=== PATIENT | male | born 1950 | race Caucasian/White ===

== ENCOUNTER → 2016-09-09 | Outpatient (CLI) | payer BC ==
[2016-09-09 10:14] LABS: ALT 43 U/L (21-72); AST 21 U/L (17-59); Alkaline Phosphatase 94 U/L (38-126); Anion Gap 8 mmol/L; Blood Urea Nitrogen 14 mg/dL (9-20); Calcium 9.2 mg/dL (8.4-10.2); Carbon Dioxide 25 mmol/L (22-30); Chloride 109 mmol/L (98-107); Cholesterol 147 mg/dL (<200); Glucose 151 mg/dL (74-99); HDL Cholesterol 69 mg/dL (40-60); Non-African American GFR(MDRD) >60 (>60 ml/min/1.73 sqM); Potassium 4.3 mmol/L (3.5-5.1); Sodium 142 mmol/L (137-145); Total Bilirubin 0.8 mg/dL (0.2-1.3); Total Protein 6.9 g/dL (6.3-8.2); Triglycerides 56 mg/dL (<150)
[2016-09-09 11:50] LABS: Hemoglobin A1C 8.2 % (4.2-6.1)
== END | disposition home or self-care (01) ==
LOC: LABWHC1 09:21
PROVIDERS: ATTEND Internal Medicine Endocrinology, Diabetes & Metabolism
DX: E10.65 Type 1 diabetes mellitus with hyperglycemia (principal)
CPT/HCPCS: 36415; 80053; 80061; 83036; 84443

== ENCOUNTER → 2016-10-11 | Outpatient (CLI) | payer BC ==
[2016-10-11 09:37] LABS: Basophils # (A) 0.1 k/uL (0-0.2); Basophils % (A) 1 %; CH 26.7; CHCM 30.6; Eosinophils # (A) 0.4 k/uL (0-0.7); Eosinophils % (A) 6 %; HCT 41.2 % (39.0-53.0); HDW 2.31; HGB 12.7 gm/dL (13.0-17.5); Hypochromasia Slight; Luc # (Auto) 0.16; Luc % (Auto) 2; Lymphocytes # (A) 2.4 k/uL (1.0-4.8); Lymphocytes % (A) 31 %; MCHC 30.8 g/dL (31.0-37.0); MCV 87.7 fL (80.0-100.0); Mean Platelet Volume 6.7; Monocytes # (A) 0.6 k/uL (0-1.0); Monocytes % (A) 8 %; Neutrophils % (A) 52 %; RDW 14.3 % (11.5-15.5); WBC 7.7 k/uL (3.8-10.6); WBC (Perox) 7.47
[2016-10-11 10:56] LABS: ALT 45 U/L (21-72); AST 25 U/L (17-59); Alkaline Phosphatase 96 U/L (38-126); Anion Gap 7 mmol/L; Blood Urea Nitrogen 14 mg/dL (9-20); Calcium 9.1 mg/dL (8.4-10.2); Carbon Dioxide 29 mmol/L (22-30); Chloride 104 mmol/L (98-107); Glucose 115 mg/dL (74-99); Non-African American GFR(MDRD) >60 (>60 ml/min/1.73 sqM); Potassium 5.1 mmol/L (3.5-5.1); Sodium 140 mmol/L (137-145); Total Bilirubin 0.5 mg/dL (0.2-1.3); Total Protein 6.2 g/dL (6.3-8.2)
[2016-10-11 11:25] LABS: Prostate Specific Antigen 1.41 ng/mL (0.00-4.00)
== END | disposition home or self-care (01) ==
LOC: LABWHC1 07:57
PROVIDERS: ATTEND Family Medicine
DX: E10.9 Type 1 diabetes mellitus without complications (principal); E03.9 Hypothyroidism, unspecified; Z12.5 Encounter for screening for malignant neoplasm of prostate
CPT/HCPCS: 36415; 80053; 84153; 84443; 85025

== ENCOUNTER 2016-12-30 17:16 | Emergency (ER) | payer BC ==
[2016-12-30 17:30] VITALS: BP 179/75; PULSE 79; RESP 20; TEMP 98.3
[2016-12-30] MEDS ORDERED: PROPARACAINE 0.5% OPHTH DROPS 15 ML BTL LEFT EYE STA (17:38)
--- NOTE | 2016-12-30 18:03 | ED ---
General Adult HPI - General Chief complaint: Eye Problems Stated complaint: RT EYE PAIN Time Seen by Provider: 12/30/16 17:38 Source: patient, RN notes reviewed Mode of arrival: ambulatory Limitations: no limitations - History of Present Illness Initial comments: Patient 66-year-old male who presents emergency room today with chief complaint of increased irritation redness to the right eye that started one day ago. Patient does admit that he's had some increased watery discharge from this eye. States vision has been the same. States that he has noticed some irritation to the eye and some sensitivity. Denies any other complaints. Patient denies any recent fever, chills, shortness of breath, chest pain, back pain, abdominal pain, nausea or vomiting, numbness or tingling, dysuria or hematuria, constipation or diarrhea, headaches or visual changes, or any other complaints. - Related Data Home Medications Medication Instructions Recorded Confirmed Albuterol Sulfate [Proair Hfa] 2 puff INHALATION RT-Q6H PRN 12/16/13 03/02/15 Atorvastatin Calcium [Lipitor] 40 mg PO HS 12/16/13 03/02/15 Losartan [Cozaar] 50 mg PO DAILY 12/16/13 03/02/15 Montelukast Sodium [Singulair] 10 mg PO HS 12/16/13 03/02/15 Insulin Aspart [NovoLOG] 0 - 90 units SQ CONTINUOUS 12/17/13 03/02/15 Fluticasone/Vilanterol [Breo 1 inhalation PO RT-DAILY 09/26/14 03/02/15 Ellipta 100-25 Mcg Inhaler] Levothyroxine Sodium [Synthroid] 137 mcg PO DAILY 09/26/14 03/02/15 traMADol HCL [traMADol HCL ER] 100 mg PO Q6H PRN 09/26/14 03/02/15 traZODone HCL [Desyrel] 100 mg PO HS PRN 09/26/14 03/02/15 Previous Rx's Medication Instructions Recorded Levalbuterol HCl [Xopenex 1.25 mg INHALATION RT-QID PRN #60 10/02/14 Nebulized] ml guaiFENesin [Mucinex] 1,200 mg PO Q12HR #30 tablet.er 10/02/14 Theophylline 12 Hour [Dennis-Dur] 300 mg PO BID #60 tab 02/05/15 Azithromycin [Zithromax] 500 mg PO DAILY #5 tab 03/04/15 predniSONE 10 mg PO DIRECTED #30 tab 03/04/15 Tobramycin 0.3% Ophth Soln [Tobrex 1 - 2 drop BOTH EYES QID 7 Days 12/30/16 0.3% Ophth Soln] Allergies Allergy/AdvReac Type Severity Reaction Status Date / Time aspirin Allergy Unknown Unknown Verified 12/30/16 17:30 Review of Systems ROS Statement: Those systems with pertinent positive or pertinent negative responses have been documented in the HPI. ROS Other: All systems not noted in ROS Statement are negative. Past Medical History Past Medical History: Asthma, Diabetes Mellitus, Hyperlipidemia, Hypertension, Skin Disorder, Thyroid Disorder Additional Past Medical History / Comment(s): 02/02/15 Pt presented to [facility] ER with ESTUARDO which started last nite while working. He went home at 0600 this AM and ESTUARDO got significantly worse. Pt is admitted with clinicla impression of asthma exacerbation. Other HX: Moderate persistant asthma, IDDM type I- insulin pump and subcutaneous diabetic sensor, hypothyroidism, vitiligo for 17 years, seasonal allergic rhinitis, pt last admitted to [facility] 10/02/14 with acute respiratory failure 2ndary to acute asthma exacerbation. History of Any Multi-Drug Resistant Organisms: None Reported Past Surgical History: Orthopedic Surgery Additional Past Surgical History / Comment(s): reconstruction of pelvis (Feb 2011), bilateral hands tendon release in fingers (2002), Arthoscopic in right knee (1996), steel rodrigo in great toe of right foot (1997), bilateral arthroscopic elbow surgery, left elbow radial nerve release. Past Anesthesia/Blood Transfusion Reactions: Postoperative Nausea & Vomiting ( PONV) Additional Past Anesthesia/Blood Transfusion Reaction / Comment(s): Only after the tendon release in fingers Past Psychological History: No Psychological Hx Reported Smoking Status: Never smoker Past Alcohol Use History: None Reported Past Drug Use History: None Reported - Past Family History Father Family Medical History: Myocardial Infarction ([place]) Additional Family Medical History / Comment(s): had in 1972 Mother Family Medical History: Asthma, Cancer, Thyroid Disorder Additional Family Medical History / Comment(s): lung cancer (diagnosed when she was 79) Brother(s) Family Medical History: CVA/TIA, Neurologic Disorder Additional Family Medical History / Comment(s): parkinson's disease, subdural hematoma. Brother is . Sister(s) Family Medical History: No Reported History Daughter(s) Family Medical History: No Reported History Son(s) Family Medical History: No Reported History General Exam - General Exam Comments Initial Comments: General: The patient is awake and alert, in no distress, and does not appear acutely ill. Eye: Pupils are equal, round and reactive to light, extra-ocular movements are intact. No nystagmus. Redness irritation to the right conjunctiva left conjunctiva clear. Ears, nose, mouth and throat: There are moist mucous membranes and no oral lesions. Neck: The neck is supple, there is no tenderness or JVD. Cardiovascular: There is a regular rate and rhythm. No murmur, rub or gallop is appreciated. Respiratory: Lungs are clear to auscultation, respirations are non-labored, breath sounds are equal. No wheezes, stridor, rales, or rhonchi. Musculoskeletal: Normal ROM, no tenderness. Strength 5/5. Sensation intact. Pulses equal bilaterally 2+. Neurological: A&O x 3. CN II-XII intact, There are no obvious motor or sensory deficits. Coordination appears grossly intact. Speech is normal. Skin: Skin is warm and dry and no rashes or lesions are noted. Psychiatric: Cooperative, appropriate mood & affect, normal judgment. Limitations: no limitations Course Vital Signs 12/30/16 17:28 Temperature 98.3 F Pulse Rate 79 Respiratory 20 Rate Blood Pressure 179/75 O2 Sat by Pulse 96 Oximetry Procedures - Procedures Initial comment: Patient is right eye was anesthetized locally with proparacaine. This did relieve his symptoms. Patient's right eye was checked with fluorescein with Wood's lamp revealing no foreign body. Slit lamp exam also performed revealing no abnormality. Patient's pressure in the right eye was checked and was 9 mmhg. Disposition Clinical Impression: Acute conjunctivitis Disposition: HOME SELF-CARE Condition: Good Instructions: Conjunctivitis (ED) Additional Instructions: Please use medication as discussed. Please follow-up with mortgage loan originator / family doctor in the next 2 days of symptoms have not improved. Please return to emergency room if the symptoms increase or worsen or for any other concerns. Prescriptions: Tobramycin 0.3% Ophth Soln [Tobrex 0.3% Ophth Soln] 1 - 2 drop BOTH EYES QID 7 Days Referrals: Skyler Marcano MD [Primary Care Provider] - 1-2 days Navdeep Melendez MD [STAFF PHYSICIAN] - 1-2 days Time of Disposition: 18:02
== END 2016-12-30 18:07 | disposition home or self-care (01) ==
LOC: EC 17:16
DX: H10.31 Unspecified acute conjunctivitis, right eye (principal); E78.5 Hyperlipidemia, unspecified; I10 Essential (primary) hypertension; E10.9 Type 1 diabetes mellitus without complications; J45.41 Moderate persistent asthma with (acute) exacerbation; E03.9 Hypothyroidism, unspecified; Z79.4 Long term (current) use of insulin; Z79.51 Long term (current) use of inhaled steroids; Z79.899 Other long term (current) drug therapy; Z88.6 Allergy status to analgesic agent
CPT/HCPCS: 99283

== ENCOUNTER → 2017-06-06 | Outpatient (CLI) | payer BC ==
[2017-06-06 09:06] LABS: ALT 36 U/L (21-72); AST 19 U/L (17-59); Albumin 3.6 g/dL (3.5-5.0); Alkaline Phosphatase 73 U/L (38-126); Anion Gap 7 mmol/L; Blood Urea Nitrogen 22 mg/dL (9-20); Calcium 9.2 mg/dL (8.4-10.2); Carbon Dioxide 26 mmol/L (22-30); Chloride 107 mmol/L (98-107); Cholesterol 151 mg/dL (<200); Glucose 176 mg/dL (74-99); HDL Cholesterol 68 mg/dL (40-60); LDL Cholesterol,Calculated 73 mg/dL (0-99); Sodium 140 mmol/L (137-145); Total Bilirubin 0.5 mg/dL (0.2-1.3); Total Protein 6.2 g/dL (6.3-8.2); Triglycerides 49 mg/dL (<150)
[2017-06-06 09:07] LABS: Potassium 4.9 mmol/L (3.5-5.1)
== END | disposition home or self-care (01) ==
LOC: LABWHC1 08:08
PROVIDERS: ATTEND Internal Medicine Endocrinology, Diabetes & Metabolism
DX: E10.65 Type 1 diabetes mellitus with hyperglycemia (principal); E03.8 Other specified hypothyroidism
CPT/HCPCS: 36415; 80053; 80061; 82043; 82570; 84443

== ENCOUNTER 2017-09-27 17:00 | Emergency (ER) | payer BC ==
[2017-09-27 17:09] VITALS: BP 142/79; PULSE 81; RESP 20; TEMP 98.4
[2017-09-27] MEDS ORDERED: ACETAMINOPHEN TAB 325 MG TAB PO STA (17:21)
[2017-09-27] MEDS ORDERED: CYCLOBENZAPRINE 5 MG TAB PO STA (17:21)
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
--- NOTE | 2017-09-27 18:06 | XR ---
EXAMINATION TYPE: XR knee 4V RT DATE OF EXAM: 09/27/2017 CLINICAL HISTORY: pain TECHNIQUE: Three views of the right knee are obtained. Pryor views also submitted. COMPARISON: None. FINDINGS: There is no acute fracture/dislocation. The tri-compartment joint spaces appear moderatel y narrowed. The overlying soft tissue appears unremarkable. IMPRESSION: There is no acute fracture or dislocation.ICD 10 NO FRACTURE, INITIAL EVALUATION
--- NOTE | 2017-09-27 18:07 | XR ---
EXAMINATION TYPE: XR Hip RT and AP Pelvis DATE OF EXAM: 09/27/2017 COMPARISON: NONE HISTORY: Pain TECHNIQUE: A single AP view of the pelvis is obtained. Two views of the right hip are obtained. FINDINGS: There is no acute fracture/dislocation evident in the pelvis. The hip and sacroiliac join ts appear symmetric and unremarkable. The overlying soft tissue appears unremarkable. Right hip evaluation demonstrates changes of total right hip arthroplasty with femoral and acetabular components appearing well seated. Additional metallic fixation of the acetabulum. No acute fracture seen. No evidence for loosening at this time. IMPRESSION: There is no acute fracture or dislocation in the pelvis or right hip.
== END 2017-09-27 18:35 | disposition home or self-care (01) ==
LOC: EC 17:00
DX: M25.561 Pain in right knee (principal); M25.551 Pain in right hip; J45.909 Unspecified asthma, uncomplicated; E78.5 Hyperlipidemia, unspecified; I10 Essential (primary) hypertension; E03.9 Hypothyroidism, unspecified; E10.9 Type 1 diabetes mellitus without complications; Z87.828 Personal history of other (healed) physical injury and trauma; Z96.641 Presence of right artificial hip joint; Z98.890 Other specified postprocedural states; Z79.4 Long term (current) use of insulin; Z79.51 Long term (current) use of inhaled steroids; Z79.899 Other long term (current) drug therapy; Z88.6 Allergy status to analgesic agent; V43.52XA Car driver injured in collision with other type car in traffic accident, initial encounter; Y92.89 Other specified places as the place of occurrence of the external cause
CPT/HCPCS: 73502; 99284

== ENCOUNTER → 2017-11-01 | Outpatient (CLI) | payer BC | END | disposition home or self-care (01) | LOC: LABWHC1 14:47 | PROVIDERS: ATTEND Internal Medicine Endocrinology, Diabetes & Metabolism | DX: E03.8 Other specified hypothyroidism (principal) | CPT/HCPCS: 36415; 84443 ==

== ENCOUNTER → 2018-03-21 | Outpatient (CLI) | payer BC ==
[2018-03-22 03:56] LABS: ALT 32 U/L (10-49); AST 28 U/L (14-35); Albumin/Globulin Ratio 2.26 (1.20-2.10); Alkaline Phosphatase 86 U/L (41-126); Carbon Dioxide 28.1 mmol/L (21.6-31.8); Chloride 106 mmol/L (96-109); Cholesterol 130 mg/dL (0-200); Globulin 1.9 g/dL (2.1-3.7); Glucose 142 mg/dL (70-110); Potassium 4.4 mmol/L (3.5-5.5); Sodium 141 mmol/L (135-145); Total Bilirubin 0.4 mg/dL (0.2-1.2); Total Protein 6.2 g/dL (6.2-8.2); Triglycerides <50.0 mg/dL (0.0-149.0); VLDL Calculation 9.98 mg/dL (5.00-40.00)
[2018-03-22 08:51] LABS: Hemoglobin A1C 8.4 % (4.0-6.0)
== END ==
LOC: LABWHC1 14:29
PROVIDERS: ATTEND Internal Medicine Endocrinology, Diabetes & Metabolism
DX: E10.65 Type 1 diabetes mellitus with hyperglycemia (principal)
CPT/HCPCS: 36415; 80053; 80061; 82043; 82570; 83036; 84443

== ENCOUNTER → 2018-09-17 | Outpatient (CLI) | payer BC ==
[2018-09-17 17:31] LABS: Albumin 3.9 g/dL (3.80-4.90); Albumin/Globulin Ratio 2.17 (1.60-3.17); Anion Gap 8.5 mmol/L (4.00-12.00); Calcium 8.5 mg/dL (8.7-10.3); Carbon Dioxide 23.5 mmol/L (21.6-31.8); Globulin 1.8 g/dL (1.6-3.3); LDL Cholesterol,Calculated 79.6 mg/dL (0.0-131.0); Potassium 4.5 mmol/L (3.5-5.5); Total Bilirubin 0.4 mg/dL (0.2-1.2); Total Protein 5.7 g/dL (6.2-8.2); VLDL Calculation 18.4 mg/dL (5.00-40.00)
[2018-09-17 18:40] LABS: Hemoglobin A1C 8.1 % (4.0-6.0)
== END | disposition home or self-care (01) ==
LOC: LABWHC1 09:44
PROVIDERS: ATTEND Internal Medicine Endocrinology, Diabetes & Metabolism
DX: E10.65 Type 1 diabetes mellitus with hyperglycemia (principal)
CPT/HCPCS: 36415; 80053; 80061; 82043; 82570; 83036; 84443

== ENCOUNTER → 2019-05-21 | Outpatient (CLI) | payer BC | END | disposition home or self-care (01) | LOC: CPPFTMAIN 14:05 | PROVIDERS: ATTEND Internal Medicine Critical Care Medicine | DX: J44.9 Chronic obstructive pulmonary disease, unspecified (principal); R94.2 Abnormal results of pulmonary function studies | CPT/HCPCS: 94060; 94726; 94729 ==

== ENCOUNTER → 2019-07-09 | Outpatient (CLI) | payer BC ==
[2019-07-09 11:50] LABS: Urine Creatinine 135.3 mg/dL
[2019-07-09 14:01] LABS: Hemoglobin A1C 7.6 % (4.0-6.0)
[2019-07-09 17:25] LABS: African American GFR (CKD) 80.6 (60.0-200.0); Albumin 4.1 g/dL (3.80-4.90); Albumin/Globulin Ratio 2.56 (1.60-3.17); Anion Gap 9.5 mmol/L (4.00-12.00); BUN/Creat Ratio 11.82 Ratio (12.00-20.00); Carbon Dioxide 26.5 mmol/L (21.6-31.8); Chol/HDL Ratio 2.26; Globulin 1.6 g/dL (1.6-3.3); Non-African American GFR(CKD) 69.6 (60.0-200.0); Potassium 4.4 mmol/L (3.5-5.5); Total Bilirubin 0.5 mg/dL (0.3-1.2); Total Protein 5.7 g/dL (6.2-8.2)
== END | disposition home or self-care (01) ==
LOC: LABWHC1 07:19
PROVIDERS: ATTEND Internal Medicine Endocrinology, Diabetes & Metabolism
DX: E10.65 Type 1 diabetes mellitus with hyperglycemia (principal)
CPT/HCPCS: 36415; 80053; 80061; 82043; 82570; 83036

== ENCOUNTER → 2020-02-05 | Outpatient (CLI) | payer BC ==
[2020-02-05 12:05] LABS: ALT 36 U/L (10-49); AST 21 U/L (14-35); African American GFR (CKD) 80.1 (60.0-200.0); Albumin/Globulin Ratio 2.11 (1.60-3.17); Alkaline Phosphatase 65 U/L (41-126); BUN/Creat Ratio 14.55 Ratio (12.00-20.00); Calcium 8.4 mg/dL (8.7-10.3); Carbon Dioxide 26.4 mmol/L (21.6-31.8); Chloride 102 mmol/L (96-109); Chol/HDL Ratio 1.91; Cholesterol 164 mg/dL (0-200); Globulin 1.8 g/dL (1.6-3.3); Glucose 198 mg/dL (70-110); Non-African American GFR(CKD) 69.1 (60.0-200.0); Potassium 4.7 mmol/L (3.5-5.5); Sodium 139 mmol/L (135-145); Total Bilirubin 0.5 mg/dL (0.3-1.2); Total Protein 5.6 g/dL (6.2-8.2); Triglycerides <50.0 mg/dL (0.0-149.0)
[2020-02-05 12:38] LABS: Microalbumin Creatinine Ratio <30 mg/g Creat (0-30); Urine Creatinine 44.5 mg/dL
[2020-02-05 16:11] LABS: Hemoglobin A1C 8.1 % (4.0-6.0)
== END | disposition home or self-care (01) ==
LOC: LABWHC1 07:04
PROVIDERS: ATTEND Internal Medicine Endocrinology, Diabetes & Metabolism
DX: E10.65 Type 1 diabetes mellitus with hyperglycemia (principal)
CPT/HCPCS: 36415; 80053; 80061; 82043; 82570; 83036; 84443

== ENCOUNTER 2020-06-24 17:41 | Observation (INO) | payer BC, MEDICARE ==
[2020-06-24] MEDS ORDERED: HYDROmorphone 1 MG/ML 1 ML SYRINGE IVP STA ×2 (17:45→18:49)
--- NOTE | 2020-06-24 17:48 | ED ---
General Adult HPI - General Stated complaint: Fall Time Seen by Provider: 06/24/20 17:42 Source: patient, EMS, RN notes reviewed Mode of arrival: EMS Limitations: no limitations - History of Present Illness Initial comments: Patient is a pleasant 69-year-old male presenting to the emergency department following a fall. Incident occurred just prior to arrival. Patient was ringing in his recycle can when he stepped on ice and slipped. Patient Complains of severe discomfort to left ankle. No other area of injury. No head injury or loss of consciousness. No neck or back pain. No chest pain or dyspnea. No abdominal pain. No history of significant injury here previously. - Related Data Home Medications Medication Instructions Recorded Confirmed Albuterol Sulfate [Proair Hfa] 2 puff INHALATION RT-Q6H PRN 12/16/13 02/06/17 Atorvastatin Calcium [Lipitor] 40 mg PO HS 12/16/13 02/06/17 Montelukast Sodium [Singulair] 10 mg PO HS 12/16/13 02/06/17 Fluticasone/Vilanterol [Breo 1 puff INHALATION RT-DAILY 09/26/14 02/06/17 Ellipta 100-25 Mcg Inhaler] traMADol HCL [Ultram ER] 100 mg PO DAILY PRN 09/26/14 02/06/17 traZODone HCL [Desyrel] 100 mg PO HS 09/26/14 02/06/17 Ascorbic Acid [Vitamin C] 500 mg PO DAILY 02/06/17 02/06/17 Insulin Aspart (For Pump) [NovoLOG 0.01 unit SQ-PUMP CONTINUOUS 02/06/17 02/06/17 (For Pump)] Levothyroxine Sodium [Synthroid] 150 mcg PO DAILY 02/06/17 02/06/17 Losartan [Cozaar] 25 mg PO DAILY 02/06/17 02/06/17 Ranitidine HCl 150 mg PO BID PRN 02/06/17 02/06/17 guaiFENesin [Mucinex] 600 mg PO Q12HR PRN 02/06/17 02/06/17 Previous Rx's Medication Instructions Recorded Levalbuterol HCl [Xopenex 1.25 mg INHALATION RT-QID PRN #60 10/02/14 Nebulized] ml Ipratropium Nebulized [Atrovent 0.5 mg INHALATION Q6HR #50 neb 02/06/17 Nebulized] Cyclobenzaprine [Flexeril] 5 mg PO TID #12 tablet 09/27/17 Allergies Allergy/AdvReac Type Severity Reaction Status Date / Time aspirin Allergy Unknown Rash/Hives Verified 06/24/20 17:47 Review of Systems ROS Statement: Those systems with pertinent positive or pertinent negative responses have been documented in the HPI. ROS Other: All systems not noted in ROS Statement are negative. Constitutional: Denies: fever Eyes: Denies: eye pain ENT: Denies: ear pain Respiratory: Denies: cough Cardiovascular: Denies: chest pain Endocrine: Denies: fatigue Gastrointestinal: Denies: abdominal pain Genitourinary: Denies: dysuria Musculoskeletal: Reports: as per HPI. Denies: back pain Skin: Denies: rash Neurological: Denies: headache Past Medical History Past Medical History: Asthma, Diabetes Mellitus, Hyperlipidemia, Hypertension, Skin Disorder, Thyroid Disorder Additional Past Medical History / Comment(s): Other HX: Moderate persistant asthma, IDDM type I- insulin pump and subcutaneous diabetic sensor, hypothyroidism, vitiligo for 17 years, seasonal allergic rhinitis, right foot drop secondary to pelvic fracture History of Any Multi-Drug Resistant Organisms: None Reported Past Surgical History: Orthopedic Surgery Additional Past Surgical History / Comment(s): reconstruction of pelvis (Feb 2011), bilateral hands tendon release in fingers (2002), Arthoscopic in right knee (1996), steel rodrigo in great toe of right foot (1997), bilateral arthroscopic elbow surgery, left elbow radial nerve release. Past Anesthesia/Blood Transfusion Reactions: Postoperative Nausea & Vomiting (PONV) Additional Past Anesthesia/Blood Transfusion Reaction / Comment(s): Only after the tendon release in fingers Past Psychological History: No Psychological Hx Reported Past Alcohol Use History: None Reported Past Drug Use History: None Reported - Past Family History Father Family Medical History: Myocardial Infarction ([place]) Additional Family Medical History / Comment(s): had in 1972 Mother Family Medical History: Asthma, Cancer, Thyroid Disorder Additional Family Medical History / Comment(s): lung cancer (diagnosed when she was 79) Brother(s) Family Medical History: CVA/TIA, Neurologic Disorder Additional Family Medical History / Comment(s): parkinson's disease, subdural hematoma. Brother is . Sister(s) Family Medical History: No Reported History Daughter(s) Family Medical History: No Reported History Son(s) Family Medical History: No Reported History General Exam Limitations: no limitations General appearance: alert, in no apparent distress Head exam: Present: atraumatic, normocephalic Eye exam: Present: normal appearance Neck exam: Present: normal inspection. Absent: tenderness Respiratory exam: Present: normal lung sounds bilaterally Cardiovascular Exam: Present: regular rate, normal rhythm Expanded Peripheral pulses: 2+: Posterior Tibialis (L), Dorsalis Pedis (L) GI/Abdominal exam: Present: soft. Absent: tenderness Extremities exam: Present: tenderness (Left ankle with tenderness and Swelling. No foot or other leg tenderness. Distally the extremity is neurovascular in tact. Cap refill less than 2 seconds.), normal capillary refill Neurological exam: Present: alert. Absent: motor sensory deficit Psychiatric exam: Present: normal affect, normal mood Skin exam: Present: normal color Course Vital Signs 06/24/20 06/24/20 06/24/20 17:42 18:25 18:31 Temperature 98.3 F Pulse Rate 85 105 H 105 H Respiratory 18 18 18 Rate Blood Pressure 184/100 192/90 168/116 O2 Sat by Pulse 98 100 100 Oximetry 06/24/20 06/24/20 06/24/20 18:36 18:37 18:53 Temperature Pulse Rate 104 H 99 104 H Respiratory 16 20 18 Rate Blood Pressure 182/101 152/89 174/97 O2 Sat by Pulse 100 100 98 Oximetry Procedures - Orthopedic Fracture Reduction Fracture #1 Consent Obtained: verbal consent, written consent Side: left Fracture Reduction Location: tibia, fibula Analgesia: procedural sedation Technique: direct manipulation Post Reduction X-rays Demonstrate: acceptable reduction Post-Reduction Neuro Exam: intact Post-Reduction Vascular Exam: intact Splint Applied: Yes Patient Tolerated Procedure: well, no complications - Orthopedic Splinting/Casting Injury #1 Side: left Lower Extremity Injury Location: short leg, ankle Lower Extremity Immobilizer: stirrup splint - Procedural Sedation Procedural Sedation Start Time: 18:25 Procedural Sedation Stop Time: 18:51 Indications: fracture/dislocation reduction ASA Class: II Mallampati Airway Score: 2 Preparation: environmental monitoring specialist applied, pulse oximeter, capnometry used, supplemental O2 applied IV Propofol Dose (mgs): 100 Complications: none Patient Tolerated Procedure: well, no complications Medical Decision Making - Medical Decision Making Patient family updated. Case discussed with practitioner branch, covering with Dr. Eaton, who will admit. - Radiology Data Radiology results: image reviewed (Left ankle x-ray shows displaced bimalleolar fracture. Repeat x-ray shows adequate alignment.) Disposition Clinical Impression: Closed fracture dislocation of left ankle Disposition: ADMITTED IP TO THIS [facility] Condition: Serious Is patient prescribed a controlled substance at d/c from ED?: No Referrals: Skyler Marcano MD [Primary Care Provider] - 1-2 days Decision Time: 19:14
[2020-06-24] MEDS ORDERED: PROPOFOL 10 MG/ML 20 ML VIAL IV ONE (18:13)
--- NOTE | 2020-06-24 18:19 | XR ---
RESULT: HISTORY: fall with pain. TECHNIQUE: 3 views of the left ankle were obtained. COMPARISON: None. FINDINGS: There are moderately displaced fractures of the distal fibula diaphysis above the ankle mortise and o f the medial malleolus at level of ankle mortise. There is lateral subluxation of the tibiotalar join t with disruption of the ankle mortise. IMPRESSION: Left ankle bimalleolar fracture with lateral subluxation.
--- NOTE | 2020-06-24 18:55 | XR ---
RESULT: HISTORY: reduction TECHNIQUE: 2 views of the left ankle were obtained. COMPARISON: None. FINDINGS: There is interval reduction and splinting of the bimalleolar fracture with improved anatomic alignmen t. IMPRESSION: As above.
[2020-06-24] MEDS ORDERED: NALOXONE 0.4 MG/ML 1 ML VIAL IV PRN (19:14)
[2020-06-24] MEDS ORDERED: ONDANSETRON 4 MG/2 ML VIAL IVP PRN (19:14)
[2020-06-24] MEDS: HYDROmorphone 0.5 MG/0.5 ML SYRINGE IVP PRN (20:02)
[2020-06-24 20:03] LABS: Basophils # (A) 0.1 k/uL (0-0.2); Basophils % (A) 1 %; Eosinophils # (A) 0.5 k/uL (0-0.7); Eosinophils % (A) 4 %; HCT 40.1 % (39.0-53.0); HGB 13.3 gm/dL (13.0-17.5); Lymphocytes # (A) 1.5 k/uL (1.0-4.8); Lymphocytes % (A) 12 %; MCH 28.9 pg (25.0-35.0); MCHC 33.3 g/dL (31.0-37.0); MCV 86.9 fL (80.0-100.0); Monocytes # (A) 0.6 k/uL (0-1.0); Monocytes % (A) 5 %; Neutrophils # (A) 9.3 k/uL (1.3-7.7); Neutrophils % (A) 78 %; Platelet Count 243 k/uL (150-450); RBC 4.62 m/uL (4.30-5.90); RDW 13.1 % (11.5-15.5)
[2020-06-24 20:12] LABS: INR 0.9 (<1.2); Partial Thromboplastin Time 23.1 sec (22.0-30.0); Prothrombin Time 9.6 sec (9.0-12.0)
[2020-06-24 20:14] LABS: ALT 27 U/L (4-49); AST 29 U/L (17-59); African American GFR (CKD) >90 (>60 ml/min/1.73 sqM); Albumin 3.6 g/dL (3.5-5.0); Alkaline Phosphatase 65 U/L (38-126); Anion Gap 4 mmol/L; Blood Urea Nitrogen 14 mg/dL (9-20); Carbon Dioxide 27 mmol/L (22-30); Chloride 103 mmol/L (98-107); Glucose 167 mg/dL (74-99); Non-African American GFR(CKD) 90 (>60 ml/min/1.73 sqM); Potassium 5.1 mmol/L (3.5-5.1); Sodium 134 mmol/L (137-145); Total Bilirubin 0.4 mg/dL (0.2-1.3); Total Protein 6.1 g/dL (6.3-8.2)
[2020-06-24] MEDS: HYDROmorphone 1 MG/ML 1 ML SYRINGE IVP PRN (21:53)
[2020-06-25] MEDS: HYDROmorphone 0.5 MG/0.5 ML SYRINGE IVP PRN (00:43)
[2020-06-25] MEDS: SODIUM CHLORIDE 0.9% 1,000 ML IV SCH ×4 (00:47→22:07)
[2020-06-25] MEDS: HYDROmorphone 1 MG/ML 1 ML SYRINGE IVP PRN ×2 (04:23→08:46)
[2020-06-25] MEDS: PANTOPRAZOLE 40 MG/10 ML VIAL IV SCH (07:26)
[2020-06-25] MEDS ORDERED: ALBUTEROL NEBULIZED 2.5 MG/3 ML INHALATION PRN (08:49)
[2020-06-25] MEDS ORDERED: LEVALBUTEROL HCL 1.25 MG/3 ML INHALATION PRN (08:49)
[2020-06-25] MEDS ORDERED: traZODone HCL 100 MG TAB PO PRN (08:49)
[2020-06-25] MEDS ORDERED: HYDROcodone/APAP 7.5-325MG 1 EACH TAB PO PRN (08:49)
[2020-06-25] MEDS ORDERED: CYCLOBENZAPRINE 5 MG TAB PO PRN (08:49)
[2020-06-25] MEDS ORDERED: BUDESONIDE 1 MG/2 ML NEBU INHALATION SCH (08:55)
[2020-06-25] MEDS ORDERED: IPRATROPIUM-ALBUTEROL 3 ML NEB INHALATION PRN (08:55)
[2020-06-25] MEDS ORDERED: Insulin Aspart (For Pump) 100 UNIT/ML VIAL SQ-PUMP SCH (09:00)
--- NOTE | 2020-06-25 09:07 | P.HPOR ---
History of Present Illness H&P Date: 06/25/20 Chief Complaint: Left ankle bimalleolar fracture Patient is a 69-year-old male who presented to [facility] yesterday evening after sustaining a slip and fall injury while at home. She apparently was going out to his recycle bin when he slipped on ice and injured his left ankle. He noticed immediate deformity and pain. He was unable to weight-bear at that time. He was able to crawl back to some contact EMS. Upon arrival to the hospital, imaging and lab tests were done. Images demonstrated a ankle dislocation with a displaced medial and lateral malleolus fracture. The ER staff reduce the ankle and splinted, I was contacted by the emergency room physician. I was able to review the images, both pre-and postreduction films with my attending physician Dr. Cuba. Patient was admitted to [facility] under our care, internal medicine was placed on consult for medical management and clearance. Patient was made nothing by mouth after midnight with plan for surgery for 06/25/2020. Patient was evaluated today at bedside, he is resting comfortably. He notes most of discomfort in the left ankle with movement. He denies any discomfort involving the right lower extremity, bilateral upper extremities. He denies any new onset cervical, thoracic or lumbar pain. He denies hitting his head during the occasion. He denies any paresthesias in the bilateral lower extremities. He denies any bowel or bladder changes. Patient does have history of an acetabular fracture back in 2010, he underwent surgery [facility]. As a result from the injury and surgery, he does have a footdrop on the right lower extremity which she utilizes a brace. He denies any previous orthopedic surgery to the left lower extremity. Currently patient denies any headaches, lightheadedness, chest pain, shortness of breath, abdominal pain, nausea vomiting, fever or chills. Review of Systems Constitutional: Reports as per HPI Past Medical History Past Medical History: Asthma, Diabetes Mellitus, Hyperlipidemia, Hypertension, Skin Disorder, Thyroid Disorder Additional Past Medical History / Comment(s): Other HX: Moderate persistant asthma, IDDM type I- insulin pump and subcutaneous diabetic sensor, hypothyroidism, vitiligo for 17 years, seasonal allergic rhinitis, right foot drop secondary to pelvic fracture History of Any Multi-Drug Resistant Organisms: None Reported Past Surgical History: Orthopedic Surgery Additional Past Surgical History / Comment(s): reconstruction of pelvis (Feb 2011), bilateral hands tendon release in fingers (2002), Arthoscopic in right knee (1996), steel rodrigo in great toe of right foot (1997), bilateral arthroscopic elbow surgery, left elbow radial nerve release. Past Anesthesia/Blood Transfusion Reactions: Postoperative Nausea & Vomiting (PONV) Additional Past Anesthesia/Blood Transfusion Reaction / Comment(s): Only after the tendon release in fingers Past Psychological History: No Psychological Hx Reported Additional Psychological History / Comment(s): Pt resides with his spouse. He is independent. He uses no assistive device. He drives. Smoking Status: Never smoker Past Alcohol Use History: None Reported Past Drug Use History: None Reported - Past Family History Father Family Medical History: Myocardial Infarction ([place]) Additional Family Medical History / Comment(s): had in 1972 Mother Family Medical History: Asthma, Cancer, Thyroid Disorder Additional Family Medical History / Comment(s): lung cancer (diagnosed when she was 79) Brother(s) Family Medical History: CVA/TIA, Neurologic Disorder Additional Family Medical History / Comment(s): parkinson's disease, subdural hematoma. Brother is . Sister(s) Family Medical History: No Reported History Daughter(s) Family Medical History: No Reported History Son(s) Family Medical History: No Reported History Medications and Allergies Home Medications Medication Instructions Recorded Confirmed Type Albuterol Sulfate [Proair Hfa] 2 puff INHALATION RT-Q6H PRN 12/16/13 06/24/20 History Atorvastatin Calcium [Lipitor] 40 mg PO HS 12/16/13 06/24/20 History Montelukast Sodium [Singulair] 10 mg PO HS 12/16/13 06/24/20 History Fluticasone/Vilanterol [Breo 1 puff INHALATION RT-DAILY 09/26/14 06/24/20 History Ellipta 100-25 Mcg Inhaler] traZODone HCL [Desyrel] 100 mg PO HS PRN 09/26/14 06/24/20 History Levalbuterol HCl [Xopenex 1.25 mg INHALATION RT-QID PRN #60 10/02/14 06/24/20 Rx Nebulized] ml Insulin Aspart (For Pump) [NovoLOG 0.01 unit SQ-PUMP CONTINUOUS 02/06/17 06/24/20 History (For Pump)] Levothyroxine Sodium [Synthroid] 150 mcg PO DAILY 02/06/17 06/24/20 History Losartan [Cozaar] 25 mg PO DAILY 02/06/17 06/24/20 History Clotrimazole Cream [Lotrimin Cream] 1 applic TOPICAL BID 06/24/20 06/24/20 History Cyclobenzaprine [Flexeril] 5 mg PO TID PRN 06/24/20 06/24/20 History HYDROcodone/APAP 7.5-325MG [[place] 1 tab PO TID PRN 06/24/20 06/24/20 History 7.5-325] Hydrocortisone Cream 1 applic TOPICAL BID 06/24/20 06/24/20 History [Hydrocortisone 2.5% Cream] Prevagen 1 tab PO DAILY 06/24/20 06/24/20 History Zinc 50 mg PO DAILY 06/24/20 06/24/20 History Allergies Allergy/AdvReac Type Severity Reaction Status Date / Time aspirin Allergy Unknown Rash/Hives Verified 06/24/20 19:33 Physical Examination Left lower extremity: Posterior splint with Brian bandage is in place. patient is able to wiggle the toes and no difficulty. His sensation to light touch both proximal distal to the splint are intact. Cap refill in the toes is less than 2 seconds. The compartments of the upper leg are soft and compressible. Logroll maneuver reproduces no pain in the groin. Patient is nontender with palpation throughout the knee, no obvious effusion present. Tender with palpation throughout the pr oximal femur, no tenderness over the greater trochanteric region. Range of motion of the knee, foot and ankle were not assessed due to splint. General orthopedic exam: No obvious open lesions or sores or obvious skin changes are present throughout the bilateral upper extremity is. Full active range of motion as noted in all major muscle groups the bilateral upper extremities. Sensation to light touch is intact through C5-T1 on the bilateral upper extremities. Radial and ulnar pulses bilaterally of the upper extremities are 2+ No obvious lesions or skin changes noted of the right lower extremity. range of motion of the lower extremity, his hip flexion along with knee extension and fle xion are intact. Plantar flexion and FHL are intact. Dorsiflexion along with EHL are limited due to his chronic footdrop. Sensation to light touch throughout the extremity is intact. Dorsalis pedis pulses 2+. Results - Labs Labs: Abnormal Lab Results - Last 24 Hours (Table) 06/24/20 06/24/20 Range/Units 19:45 19:45 WBC 12.0 H (3.8-10.6) k/uL Neutrophils # 9.3 H (1.3-7.7) k/uL Sodium 134 L (137-145) mmol/L Glucose 167 H (74-99) mg/dL Calcium 8.0 L (8.4-10.2) mg/dL Total Protein 6.1 L (6.3-8.2) g/dL H & H 06/24/20 Range/Units 19:45 Hgb 13.3 (13.0-17.5) gm/dL Hct 40.1 (39.0-53.0) % Coagulation 06/24/20 Range/Units 19:45 INR 0.9 (<1.2) Result Diagrams: 06/24/20 19:45 06/24/20 19:45 - Diagnostic results Ankle/Foot x-ray: report reviewed, image reviewed (Pre-and postreduction films were reviewed. Evidence of obvious displaced medial and lateral malleolus fracture involving the left ankle. Mortise joint remains malaligned post reduction.) Assessment and Plan Assessment: Left ankle dislocation, status post relocation and splinting Left ankle bimalleolar fracture, displaced, closed Status post open fall Type 1 diabetes mellitus Plan: Discussed treatment options with patient today at bedside, we like to proceed with surgical fixation of the left ankle, more specifically open reduction internal fixation of the medial and lateral malleolus fracture on 06/25/2020. Patient was made aware that Dr. Cuba will be available later today to discuss risk assessment of the procedure Obtain consent for procedure Continue nothing by mouth diet Nonweightbearing left lower extremity DVT prophylaxis, we'll begin subcu medication after surgery Pain control, continue current medication Medical recommendations Discharge planning: We'll discharge to home on 06/26/2020. Will work with case management with regards to medical clinic for home Time with Patient: Less than 30
[2020-06-25] MEDS: INSULIN ASPART (NovoLOG) 100 UNIT/ML VIAL SQ SCH ×4 (09:24→22:58)
[2020-06-25] MEDS: ZINC SULFATE 220 MG CAP PO SCH (09:25)
[2020-06-25] MEDS: LEVOTHYROXINE 75 MCG TAB PO SCH (09:25)
[2020-06-25] MEDS: CLOTRIMAZOLE 1% CREAM 15 GM TUBE TOPICAL SCH ×2 (09:34→22:07)
[2020-06-25] MEDS: LOSARTAN 25 MG TAB PO SCH (09:35)
[2020-06-25] MEDS: TRIAMCINOLONE 0.1% CREAM 80 GM TUBE TOPICAL SCH ×2 (09:35→22:07)
[2020-06-25] MEDS: METOPROLOL TARTRATE 12.5 MG TAB PO SCH ×2 (09:35→22:02)
[2020-06-25] MEDS: methylPREDNISolone SOD SUCCI 125 MG/2 ML VIAL IV SCH ×2 (09:36→16:16)
--- NOTE | 2020-06-25 09:38 | XR ---
EXAMINATION TYPE: XR chest 2V DATE OF EXAM: 06/25/2020 COMPARISON: Chest x-ray 02/06/2017 HISTORY: Preop clearance TECHNIQUE: Frontal and lateral views of the chest are obtained. FINDINGS: There is no focal air space opacity, pleural effusion, or pneumothorax seen. The cardiac silhouette size is within normal limits. The osseous structures are intact, there is thoracic spond ylosis. IMPRESSION: No acute cardiopulmonary process.
--- NOTE | 2020-06-25 10:11 | P.PN ---
Progress Note - Text Progress Note Date: 06/25/20 Orthopedic Surgery Risk Review Chaparro Glasgow is a 69-year-old male presenting for evaluation of sudden onset left ankle pain, inability to ambulate after fall from standing while taking out his garbage onto his left ankle. It was my pleasure to have seen and examined Chaparro Glasgow . In our visit today we have had a chance to go over subjective complaints, physical examination findings and treatments including the natural course history without intervention and various interventional options. His imaging demonstrates fracture dislocation of the left ankle. On physical exam, Chaparro Glasgow demonstrates pain with motion of left lower extremity left ankle, which is NV intact at this time. I have explained to the patient that this fracture needs stabilization. Based on the patients imaging, physical exam, and the rapid progression and disabling nature of her symptoms, at this time I recommend surgery in the form or a: Open reduction and internal fixation of left ankle I discussed the risk and benefits of this procedure at length with Chaparro Glasgow . Questions were invited and answered, and the patient wishes to proceed as outlined below. Currently, I am recommendin. Open reduction and internal fixation of left ankle 2. Review of surgical risks and benefits as well as an educational packet on the proposed surgical procedure. Risks: All surgical procedures come with inherent risks, including those related to positioning, anesthesia, intraoperative findings, and postoperative complications. It is important to understand that surgery does not come with any guarantee of a successful outcome as complications and adverse events are always possible. The patient was given a handout discussing the surgical procedure and risks associated with the intervention, both of which were discussed with the patient. These risks include but are not limited to the following: - Experiencing same, different or even worse symptoms compared to before surgery. - Requiring further surgery or other forms of treatment presently or at some time in the future . - On an extreme but fortunately relatively rare basis severe complication such as blindness, stroke, heart attack, temporary and/or permanent nerve injury, paralysis, coma, or may occur, sometimes without known explanation. - Surgical complications may include but are not limited to risk of infection, fluid accumulation in the surgical dissection site, including a seroma or hematoma, that requires additional surgery, wound drainage, bleeding, new numbness or weakness, vision changes/loss, spinal fluid leakage, non-healing and/or infected incision, headaches, difficulty or inability to swallow, hoarseness, hemopneumothorax, pneumothorax, injury to nerves, spinal cord, blood vessels, lymphatics or other vital organs (i.e., bowel injury, injury to the great vessels); heterotopic bone formation; complications related to the hardware such as screws, rods, including misplaced hardware, device failure, hardware fracture/breakage, or hardware loosening; retained surgical instrume ntations or devices and the need for further surgery. - Medical risks of the planned surgery include but are not limited to generalized Infections to the whole body or local areas outside of the surgical site (sepsis), heart attack, bleeding, anaphylaxis, meningitis, seizure, epilepsy, hearing loss, burn ro, laceration of the head or other areas of the body, bruising, hypersensitivity of the skin, bladder over distension; allergic reaction; shoulder injury related to positioning; fat, blood and air clots to other areas of the body like heart, lungs, brain; failure of internal organs such as lungs, kidneys, liver and excessive bleeding. If blood transfusions are necessary, note that transfusions may cause intolerance reactions such as anaphylaxis or other complex reactions. Despite best efforts, the results of surgery might not heal in terms of bone, soft tissues such as skin, fascia, ligaments, and joints. [facility] is an educational center that serves as a training facility for physician assistants, nurses, orthopedic residents and fellows. Residents are physicians who are completing their surgical intensive training following medical school. They assist in the operating room with direct supervision of the attending surgeons. [place] are surgeons who have completed their training and eligible for board certification. They have opted for an elective year of more specialized training in their field. They assist in the operating room under the supervision of the attending surgeons. Physician assistants are medically trained surgical providers who function in the outpatient, inpatient, and operating room setting under the direct supervision of the attending surgeon. [facility] has multiple operating rooms with single and overlapping rooms running daily. They currently function under the required guidelines as produced by the [facility] with regards to the overlapping rooms and will continue to comply with changes to this policy as they occur. The requirements include and are complied with as follows: (1) the critical portions of the overlapping rooms will not occur at the same time, (2) the attending physician will be physically present during the critical portions of the procedure and immediately available during the entire case, and (3) a back-up attending is designated should the primary attending not be immediately available. The patient has had a chance to review all the listed information, has been given print outs detailing this information, and has had all his/her questions answered to their satisfaction. It was my pleasure to have seen and examined Chaparro Glasgow . In our visit today we have had a chance to go over my understanding of our patient's current condition, the natural course history without intervention and various interventional options. Questions were invited and answered, and the patient wishes to proceed as outlined above. I have seen and examined the patient for 25 minutes and we have spent more than 50% of the time in repeat and detailed counseling about the patient's condition, its natural course history with out and as much as can be predicted with surgery and re-review of various surgical treatment options. In conclusion, Chaparro Glasgow requested we proceed with the above suggested surgery and are willing to accept risks and limitations of the suggested surgery as nature of the disease process and our best attempts at treatment for the condition. Thank you again for allowing us to be part of your patient's care. Please don't hesitate to contact me if you have any further questions. Signed and authenticated by: Jerzy Powers [facility] [address] [id number]
[2020-06-25] MEDS ORDERED: INSULIN PUMP ACTIVE INSULIN 1 EACH MISC MISCELLANE PRN (11:15)
[2020-06-25] MEDS ORDERED: INSULIN PUMP TARGET GLUCOSE 1 EACH MISC MISCELLANE PRN (11:15)
[2020-06-25] MEDS ORDERED: INSPUCOR MISCELLANE PRN (11:15)
[2020-06-25] MEDS ORDERED: INSULIN ASPART (NovoLOG) 100 UNIT/ML VIAL SQ PRN (11:15)
[2020-06-25] MEDS ORDERED: INSULIN PUMP BASAL RATES 1 EACH MISC MISCELLANE PRN (11:15)
[2020-06-25] MEDS: INSULIN PUMP MEAL BOLUS 1 UNIT MISC MISCELLANE SCH ×3 (12:03→22:06)
[2020-06-25] MEDS: IPRATROPIUM-ALBUTEROL 3 ML NEB INHALATION SCH ×4 (12:29→20:52)
--- NOTE | 2020-06-25 13:45 | P.CONS ---
History of Present Illness - Reason for Consult Consult date: 06/25/20 Medical management - History of Present Illness HISTORY OF PRESENT ILLNESS This is a 69-year-old male patient of Dr. Marcano with past medical history of diabetes mellitus type 2 on insulin pump managed by Dr. Gallagher, mild intermittent asthma, hypertension, hyperlipidemia, hypothyroidism. Patient was in his garage moving a recycling can and slipped and fell. He crawled into the house but had continued left ankle discomfort. Patient presented to [facility] emergency center was found to have a fracture dislocation of the left ankle and admitted under the care of orthopedics. He has been afebrile, heart rate 111, blood pressure 166/79, pulse ox 93% on room air. Patient's insulin is on hold until following surgery. We will place patient on NovoLog scale every 6 hours. He states his last hemoglobin A1c was 7.5 which was done at his [employer] office last week. He denies having any complications from diabetes. He does state he has some nausea with anesthesia. Regarding his asthma, patient usually follows with Dr. Mcdonald and appears to be in minimal exacerbation for which DuoNeb treatments, Pulmicort twice daily and 2 doses of IV Solu-Medrol has been ordered. Scheduled surgery at 4 PM today for open reduction internal fixation of the left ankle. Patient also noted to have slightly elevated heart rate for which a beta caroline will be added and patient to receive his losartan prior surgery today. Chest x-ray shows no acute cardiopulmonary process. WBC 12.0, hemoglobin 13.3. INR 0.9. Electrolytes essentially normal, creatinine 0.86. Blood sugar 167. ProBNP 839. Rodriguez virus PCR not detected. REVIEW OF SYSTEMS Constitutional: No fever, no chills, no night sweats. No weight change. No weakness, fatigue or lethargy. No daytime sleepiness. EENT: No headache. No blurred vision or double vision, no loss of vision. No loss of Hearing, no ringing in the ears, no dizziness. No nasal drainage or congestion. No epistaxis. No sore throat. Lungs: No shortness of breath, cough, no sputum production. Reports wheezing. Cardiovascular: No chest pain, no lower extremity edema. No palpitations. No paroxysmal nocturnal dyspnea. No orthopnea. No lightheadedness or dizziness. No syncopal episodes. Abdominal: No abdominal pain. No nausea, vomiting. No diarrhea. No constipation. No bloody or tarry stools.. No loss of appetite. Genitourinary: No dysuria, increased frequency, urgency. No urinary retention. Musculoskeletal: No myalgias. No muscle weakness, no gait dysfunction, no frequent falls. No back pain. No neck pain. Integumentary: No wounds, no lesions. No rash or pruritus. No unusual bruising. No change in hair or nails. Neurologic: No aphasia. No facial droop. No change in mentation. No head injury. No headache. No paralysis. No paresthesia. Psychiatric: No depression. No anxiety. No mood swings. Endocrine: No abnormal blood sugars. No weight change. SOCIAL HISTORY Patient is a lifelong nonsmoker. He denies any alcohol use or abuse. No marijuana or illicit drug use. 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 FAMILY HISTORY Mother at age 79 from lung cancer with history of smoking. Father at age 56 from a myocardial infarction with history of smoking. Patient has one brother and he has passed from Parkinson's. Patient has 2 sisters with no major medical problems. Patient has 3 children. One son has from a motor vehicle accident. One son and one daughter alive with no major medical problem s.. PHYSICAL EXAMINATION Gen: This is a 69-year-old male. Patient is resting in bed and appears to be comfortable at rest. No acute distress is noted. No respiratory distress noted. HEENT: Head is atraumatic, normocephalic. Pupils equal, round. Sclerae is anict xiomara. NECK: Supple. No JVD. No lymphadenopathy. No thyromegaly. LUNGS: Scattered bilateral expiratory wheeze. No intercostal retractions. HEART: Regular rate and rhythm. No murmur. ABDOMEN: Soft. Bowel sounds are present. No masses. No tenderness. EXTREMITIES: No pedal edema. No calf tenderness. Dorsalis pedis +2 bilaterally. Left ankle tenderness. NEUROLOGICAL: Patient is awake, alert and oriented x3. Cranial nerves 2 through 12 are grossly intact. ASSESSMENT AND PLAN 1. Left ankle fracture and dislocation. Patient is scheduled for open reduction internal fixation of the left ankle today with Dr Cuba. Patient is cleared for surgical intervention. EKG, chest x-ray been ordered. Patient is to receive his losartan this morning as well as start a beta caroline. 2. Mild exacerbation, moderate intermittent asthma. Patient started on DuoNeb treatments scheduled and as needed, Pulmicort 0.5 mg twice daily, Solu-Medrol 60 mg 2 doses and then discontinue. Continue Singulair 10 mg at bedtime 3. Mild tachycardia. Patient started on. 4. Hypertension. Continue losartan 25 mg daily. 5. Lipidemia. Continue atorvastatin 40 mg at bedtime. 6. Diabetes mellitus type 2. Patient is normally on insulin pump which will be on hold until following surgery. Patient will be on insulin scale every 6 hours. 7. Hypothyroidism. Continue levothyroxine 150 g daily. 8. GI prophylaxis. Protonix. 9. Insomnia. Continue trazodone 100 mg at bedtime as needed.. Patient will be admitted to the hospital for a minimum of 2 night stay. DISCHARGE PLAN Home. Impression and plan of care have been directed as dictated by the signing physician. Maria R Topete nurse practitioner acting as scribe for signing physician. Past Medical History Past Medical History: Asthma, Diabetes Mellitus, Hyperlipidemia, Hypertension, Skin Disorder, Thyroid Disorder Additional Past Medical History / Comment(s): Other HX: Moderate persistant asthma, IDDM type I- insulin pump and subcutaneous diabetic sensor, hypothyroidism, vitiligo for 17 years, seasonal allergic rhinitis, right foot drop secondary to pelvic fracture History of Any Multi-Drug Resistant Organisms: None Reported Past Surgical History: Orthopedic Surgery Additional Past Surgical History / Comment(s): reconstruction of pelvis (Feb 2011), bilateral hands tendon release in fingers (2002), Arthoscopic in right knee (1996), steel rodrigo in great toe of right foot (1997), bilateral arthroscopic elbow surgery, left elbow radial nerve release. Past Anesthesia/Blood Transfusion Reactions: Postoperative Nausea & Vomiting (PONV) Additional Past Anesthesia/Blood Transfusion Reaction / Comm: Only after the tendon release in fingers Past Psychological History: No Psychological Hx Reported Additional Psychological History / Comment(s): Pt resides with his spouse. He is independent. He uses no assistive device. He drives. Smoking Status: Never smoker Past Alcohol Use History: None Reported Past Drug Use History: None Reported - Past Family History Father Family Medical History: Myocardial Infarction ([place]) Additional Family Medical History / Comment(s): had in 1972 Mother Family Medical History: Asthma, Cancer, Thyroid Disorder Additional Family Medical History / Comment(s): lung cancer (diagnosed when she was 79) Brother(s) Family Medical History: CVA/TIA, Neurologic Disorder Additional Family Medical History / Comment(s): parkinson's disease, subdural hematoma. Brother is . Sister(s) Family Medical History: No Reported History Daughter(s) Family Medical History: No Reported History Son(s) Family Medical History: No Reported History Medications and Allergies Home Medications Medication Instructions Recorded Confirmed Type Albuterol Sulfate [Proair Hfa] 2 puff INHALATION RT-Q6H PRN 12/16/13 06/24/20 History Atorvastatin Calcium [Lipitor] 40 mg PO HS 12/16/13 06/24/20 History Montelukast Sodium [Singulair] 10 mg PO HS 12/16/13 06/24/20 History Fluticasone/Vilanterol [Breo 1 puff INHALATION RT-DAILY 09/26/14 06/24/20 History Ellipta 100-25 Mcg Inhaler] traZODone HCL [Desyrel] 100 mg PO HS PRN 09/26/14 06/24/20 History Levalbuterol HCl [Xopenex 1.25 mg INHALATION RT-QID PRN #60 10/02/14 06/24/20 Rx Nebulized] ml Insulin Aspart (For Pump) [NovoLOG 0.01 unit SQ-PUMP CONTINUOUS 02/06/17 06/24/20 History (For Pump)] Levothyroxine Sodium [Synthroid] 150 mcg PO DAILY 02/06/17 06/24/20 History Losartan [Cozaar] 25 mg PO DAILY 02/06/17 06/24/20 History Clotrimazole Cream [Lotrimin Cream] 1 applic TOPICAL BID 06/24/20 06/24/20 History Cyclobenzaprine [Flexeril] 5 mg PO TID PRN 06/24/20 06/24/20 History HYDROcodone/APAP 7.5-325MG [[place] 1 tab PO TID PRN 06/24/20 06/24/20 History 7.5-325] Hydrocortisone Cream 1 applic TOPICAL BID 06/24/20 06/24/20 History [Hydrocortisone 2.5% Cream] Prevagen 1 tab PO DAILY 06/24/20 06/24/20 History Zinc 50 mg PO DAILY 06/24/20 06/24/20 History Allergies Allergy/AdvReac Type Severity Reaction Status Date / Time aspirin Allergy Unknown Rash/Hives Verified 06/24/20 19:33 Physical Exam Vitals: Vital Signs Temp Pulse Pulse Resp BP BP Pulse Ox 06/25/20 07:45 99.3 F 111 H 16 166/79 93 L 06/25/20 06:56 98.9 F 115 H 18 152/77 96 06/24/20 21:57 80 18 158/76 99 06/24/20 19:21 104 H 18 156/84 98 06/24/20 18:53 104 H 18 174/97 98 06/24/20 18:37 99 20 152/89 100 06/24/20 18:36 104 H 16 182/101 100 06/24/20 18:31 105 H 18 168/116 100 06/24/20 18:25 105 H 18 192/90 100 06/24/20 17:42 98.3 F 85 18 184/100 98 Intake and Output 06/24/20 06/25/20 06/25/20 22:59 06:59 14:59 Other: Weight 90.265 kg 90.265 kg Results CBC & Chem 7: 06/24/20 19:45 06/24/20 19:45 Labs: Abnormal Lab Results - Last 24 Hours (Table) 06/24/20 06/24/20 Range/Units 19:45 19:45 WBC 12.0 H (3.8-10.6) k/uL Neutrophils # 9.3 H (1.3-7.7) k/uL Sodium 134 L (137-145) mmol/L Glucose 167 H (74-99) mg/dL Calcium 8.0 L (8.4-10.2) mg/dL Total Protein 6.1 L (6.3-8.2) g/dL
[2020-06-25] MEDS ORDERED: LACTATED RINGERS 1,000 ML IV ONE ×2 (16:03→18:03)
[2020-06-25] MEDS ORDERED: fentaNYL (PF) 50 MCG/ML 2 ML AMP IVP ONE ×2 (16:13→16:53)
[2020-06-25] MEDS ORDERED: MIDAZOLAM 2 MG/2 ML VIAL IVP ONE ×2 (16:13→16:53)
[2020-06-25 16:17] LABS: Glucose,Whole Blood 192 mg/dL (75-99)
[2020-06-25] MEDS ORDERED: ONDANSETRON 4 MG/2 ML VIAL IVP ONE (16:26)
[2020-06-25] MEDS ORDERED: DEXAMETHASONE SOD PHOSPHATE 4 MG/ML 1 ML VIAL IVP ONE (16:26)
--- NOTE | 2020-06-25 16:42 | P.ANPRN ---
Procedure Note - Anesthesia - Nerve Block Performed Left Popliteal Single Time Out Performed: Yes (1609) Date of Procedure: 06/25/20 Procedure Start Time: 16:11 Procedure Stop Time: 16:15 Location of Patient: PreOp Indication: Acute Post-Operative Pain, Requested by Surgeon Specifically requested for management of pain by : Jerzy Cuba Sedation Type: Sedate with meaningful contact maintained Preparation: Sterile Prep Position: Right Lateral Catheter: None Needle Types: Pajunk Needle Gauge: 21 Ultrasound used to visualize needle placement: Yes Ultrasound used to observe medication spread: Yes Injectate: 0.5% Ropivacaine (see comment for volume) (20cc) Blood Aspirated: No Pain Paresthesia on Injection Noted: No Resistance on Injection: Normal Image Stored and Saved: Yes Events: Uneventful and Well Tolerated Right Adductor Canal Single Time Out Performed: Yes (1609) Date of Procedure: 06/25/20 Procedure Start Time: 16:16 Procedure Stop Time: 16:20 Location of Patient: PreOp Indication: Acute Post-Operative Pain, Requested by Surgeon Specifically requested for management of pain by DrRobyn: Jerzy Cuba Sedation Type: Sedate with meaningful contact maintained Preparation: Sterile Prep Position: Supine Catheter: None Needle Types: Pajunk Needle Gauge: 21 Ultrasound used to visualize needle placement: Yes Ultrasound used to observe medication spread: Yes Injectate: 0.5% Ropivacaine (see comment for volume) (20CC) Blood Aspirated: No Pain Paresthesia on Injection Noted: No Resistance on Injection: Normal Image Stored and Saved: Yes Events: Uneventful and Well Tolerated
[2020-06-25] MEDS ORDERED: SUCCINYLCHOLINE CHLORIDE 100 MG/5 ML SYR IV ONE (16:53)
[2020-06-25] MEDS ORDERED: fentaNYL (PF) 50 MCG/ML 2 ML AMP ONE (16:53)
[2020-06-25] MEDS ORDERED: LIDOCAINE 1% INJ 10MG/ML (20 ML MDV) ONE (16:53)
[2020-06-25] MEDS ORDERED: PROPOFOL 10 MG/ML 20 ML VIAL IV ONE (16:53)
[2020-06-25] MEDS ORDERED: ROPIVACAINE 5 MG/ML 30 ML VIAL ONE (16:53)
[2020-06-25] MEDS ORDERED: SODIUM CHLORIDE 0.9% 100 ML with ceFAZolin 2,000 MG IV ONE ×2 (17:08)
--- NOTE | 2020-06-25 20:08 | XR ---
INDICATION PROVIDED: Left ankle ORIF. COMPARISON: Radiographs 06/24/2020. TECHNIQUE: 8 stored intraoperative fluoroscopic images of the left ankle for surgical hardware locali zation were created. FINDINGS: Intraoperative fluoroscopic images obtained during left ankle ORIF. Total fluoroscopic time is 1 min nelson 43 seconds seconds. IMPRESSION: Intraoperative left ankle ORIF. Please see operative report for surgical details.
--- NOTE | 2020-06-25 20:10 | XR ---
INDICATION PROVIDED: Left ankle ORIF. COMPARISON: 06/24/2020. TECHNIQUE: 2 stored intraoperative fluoroscopic images of the left knee were created. FINDINGS: Intraoperative fluoroscopic images obtained during left ankle were. IMPRESSION: Intraoperative left ankle ORIF. Please see operative report for surgical details.
[2020-06-25 20:22] LABS: Glucose,Whole Blood 219 mg/dL (75-99)
[2020-06-25] MEDS: SYMBICORT 80-4.5 MCG INHALER INHALATION SCH (20:57)
[2020-06-25] MEDS ORDERED: MONTELUKAST 10 MG TAB PO SCH (21:00)
[2020-06-25] MEDS ORDERED: ATORVASTATIN 40 MG TAB PO SCH (21:00)
[2020-06-26 03:08] VITALS: TEMP 98.2
[2020-06-26] MEDS: LEVOTHYROXINE 75 MCG TAB PO SCH (05:21)
[2020-06-26] MEDS: SODIUM CHLORIDE 0.9% 1,000 ML IV SCH ×2 (05:22→08:41)
[2020-06-26 06:58] LABS: Glucose,Whole Blood 175 mg/dL (75-99)
[2020-06-26 07:14] VITALS: RESP 16
[2020-06-26] MEDS: INSULIN PUMP MEAL BOLUS 1 UNIT MISC MISCELLANE SCH (07:30)
--- NOTE | 2020-06-26 08:17 | P.PN ---
Subjective Progress Note Date: 06/26/20 Principal diagnosis: Left ankle fracture Pt s/e this AM. No issues overnight. Pain controlled. Block still working at this time. Able to wiggle toes. Denies any f/c/sob/cp. Denies any new symptoms. States he has been to bathroom x1. Tolerating light PO diet. Objective - Vital Signs Vital signs: Vital Signs Temp 98.2 F 06/26/20 07:13 Pulse 82 06/26/20 07:13 Resp 16 06/26/20 07:13 BP 137/73 06/26/20 07:13 Pulse Ox 93 L 06/26/20 07:13 Intake & Output 06/25/20 06/26/20 06/26/20 18:59 06:59 18:59 Intake Total 1530 0 Output Total 1220 Balance 1530 -1220 Weight 90.265 kg Intake: IV 1530 0 Invasive Line 1 30 Output: Urine 1200 Estimated Blood Loss 20 Other: Voiding Method Urinal # Voids 3 1 - Exam Patient is alert and oriented 3 appears well-nourished well-hydrated is in no acute distress. They does not appear septic. On exam the patient has no tenderness to palpation of her thoracic or lumbar spine. There is no edema or ballottement sign. They have good strength in her lower extremities with 5 out of 5 dorsiflexion plantar flexion EHL and FHL bilaterally. Upper extremities show 5/5 strength in all major muscle groups. There is FROM that is painless of the b/l UE and LE in all major joints. They are intact to light touch sensation in L2 to S1 nerve distribution. Patient has palpable dorsalis pedis was posterior tibial pulses. Compartments are soft and compressible. Patient shows a negative Homans, Bullock's, negative Babinski's negative clonus bilaterally. negative straight leg raise bilaterally. No tensioning signs.Cranial nerves II through XII are grossly intact. Overall alignment is well-maintained in the sagittal coronal planes. Except for noted he has a cast on his left lower extremity which is bivalved and fitting well. It is not overly tight at this time. He does have swelling however his Refill is brisk and less than 2 seconds in all toes of his left lower extremity. His compartments are soft and compressible. He has no increasing pain. Sensation is intact L2 to S1 in his recovering from block. - Labs CBC & Chem 7: 06/24/20 19:45 06/24/20 19:45 Labs: Abnormal Lab Results - Last 24 Hours (Table) 06/25/20 06/25/20 06/26/20 Range/Units 16:07 20:20 06:54 POC Glucose (mg/dL) 192 H 219 H 175 H (75-99) mg/dL Assessment and Plan Assessment: 69-year-old male postop day 1 left ankle ORIF Plan: -Appreciate medicine management. -Pain control: At this time -Nonweightbearing left lower extremity -Maintain cast clean dry and intact -Ice rest and elevation for pain and swelling control -Aggressive ambulation protocol. OOB with all meals. OOB or in chair 4-5x daily. -PT/OT -TEDs, SCDs, mechanical ppx. OK for heparin today. Early ambulation is best. -GI ppx. -No further imaging needed at this time -Trend labs. -Dispo: Home today
--- NOTE | 2020-06-26 08:32 | P.DS ---
Providers Date of admission: 06/24/20 19:16 Expected date of discharge: 06/26/20 Attending physician: Jerzy Cuba DO Consults: 06/24/20 19:15 Consult Physician Routine Consulting Provider: Eliza Mena Consult Reason/Comments: Medical care Do you want consulting provider notified?: Yes Primary care physician: Skyler [facility] Course: Date of admission: 06/24/2020 Date of discharge: 06/26/2020 Admission diagnosis: Left ankle dislocation with associated bimalleolar ankle fracture, status post reduction and splinting Discharge diagnosis: Status post ORIF left ankle bimalleolar fracture with fiberglass casting Attending physician: Dr. Cuba Surgical procedures: Open reduction internal fixation left ankle bimalleolar fracture, fiberglass casting Brief history: Patient is a 69-year-old male who was evaluated in the emergency room on 06/24/2020 after slipping on ice at home and injuring his left ankle. Upon arrival to the hospital, imaging and lab tests were done. Images demonstrated a left ankle dislocation with associated bimalleolar fracture. A reduction procedure was done along with splinting by the emergency room staff. She was admitted under our orthopedic care with plan for surgical intervention. Patient underwent surgery on 06/25/2020. Hospital course: Details of patient's surgery can be found in operative report. Patient tolerated the procedure well and was subsequently transported to orthopedic floor. Patient's orthopeidc and medical care was provided daily. Patient had daily laboratory tests performed for evaluation of overall blood counts. Patient had daily physical therapy to include strengthening range of motion as well as education with walker ambulation. Patient was treated with heparin for their postoperative DVT prophylaxis during their inpatient stay. Patient was noted to have a relatively uneventful postoperative course. Patient reported satisfactory pain control with oral pain medications by postoperative day 0. Patient showed satisfactory progress with physical therapy. Patient moved steadily through the program and had no difficulty meeting the goals by postoperative day 1. Given patient's otherwise satisfactory course and having met physical therapy goals, plan is to discharge patient home on postoperative day 1. Discharge condition/disposition: Patient will be discharged home in stable condition. Discharge medications: Instructions are given on resumption of patient's normal daily medications per primary care recommendation, in addition patient will be prescribed [place] 10 mg/325 mg, aspirin 81 mg. Discharge instructions: 1. Nonweightbearing left lower extremity, utilize walker, knee scooter or wheelchair 2. Keep cast clean and dry, keep covered while showering 3. Ice and elevate often 4. Pain medication as needed 5. Aspirin 81 mg twice a day for DVT prophylaxis 6. Plan [facility] 2 weeks for x-ray and clinical evaluation, please contact the office with any questions Procedures: Open reduction internal fixation bimalleolar ankle fracture with fiberglass cast placement Patient Condition at Discharge: Good Plan - Discharge Summary New Discharge Prescriptions: New Aspirin [Adult Low Dose Aspirin EC] 81 mg PO BID #60 tablet.dr HYDROcodone/APAP 10-325MG [[place] 10-325] 1 - 2 tab PO Q6HR PRN 3 Days #42 tab PRN Reason: Pain Famotidine [Pepcid] 20 mg PO DAILY #30 tablet No Action Albuterol Sulfate [Proair Hfa] 2 puff INHALATION RT-Q6H PRN PRN Reason: Shortness Of Breath Montelukast Sodium [Singulair] 10 mg PO HS Atorvastatin Calcium [Lipitor] 40 mg PO HS traZODone HCL [Desyrel] 100 mg PO HS PRN PRN Reason: SLEEP Fluticasone/Vilanterol [Breo Ellipta 100-25 Mcg Inhaler] 1 puff INHALATION RT-DAILY Levalbuterol HCl [Xopenex Nebulized] 1.25 mg INHALATION RT-QID PRN #60 ml PRN Reason: Shortness Of Breath Insulin Aspart (For Pump) [NovoLOG (For Pump)] 0.01 unit SQ-PUMP CONTINUOUS Losartan [Cozaar] 25 mg PO DAILY Levothyroxine Sodium [Synthroid] 150 mcg PO DAILY Cyclobenzaprine [Flexeril] 5 mg PO TID PRN PRN Reason: Muscle Pain Prevagen 1 tab PO DAILY Hydrocortisone Cream [Hydrocortisone 2.5% Cream] 1 applic TOPICAL BID Clotrimazole Cream [Lotrimin Cream] 1 applic TOPICAL BID Zinc 50 mg PO DAILY HYDROcodone/APAP 7.5-325MG [[place] 7.5-325] 1 tab PO TID PRN PRN Reason: Pain Discharge Medication List Albuterol Sulfate [Proair Hfa] 2 puff INHALATION RT-Q6H PRN 12/16/13 [History] Atorvastatin Calcium [Lipitor] 40 mg PO HS 12/16/13 [History] Montelukast Sodium [Singulair] 10 mg PO HS 12/16/13 [History] Fluticasone/Vilanterol [Breo Ellipta 100-25 Mcg Inhaler] 1 puff INHALATION RT- DAILY 09/26/14 [History] traZODone HCL [Desyrel] 100 mg PO HS PRN 09/26/14 [History] Levalbuterol HCl [Xopenex Nebulized] 1.25 mg INHALATION RT-QID PRN #60 ml 10/02/14 [Rx] Insulin Aspart (For Pump) [NovoLOG (For Pump)] 0.01 unit SQ-PUMP CONTINUOUS 02/06/17 [History] Levothyroxine Sodium [Synthroid] 150 mcg PO DAILY 02/06/17 [History] Losartan [Cozaar] 25 mg PO DAILY 02/06/17 [History] Clotrimazole Cream [Lotrimin Cream] 1 applic TOPICAL BID 06/24/20 [History] Cyclobenzaprine [Flexeril] 5 mg PO TID PRN 06/24/20 [History] HYDROcodone/APAP 7.5-325MG [[place] 7.5-325] 1 tab PO TID PRN 06/24/20 [History] Hydrocortisone Cream [Hydrocortisone 2.5% Cream] 1 applic TOPICAL BID 06/24/20 [History] Prevagen 1 tab PO DAILY 06/24/20 [History] Zinc 50 mg PO DAILY 06/24/20 [History] Aspirin [Adult Low Dose Aspirin EC] 81 mg PO BID #60 tablet. 06/26/20 [Rx] Famotidine [Pepcid] 20 mg PO DAILY #30 tablet 06/26/20 [Rx] HYDROcodone/APAP 10-325MG [[place] 10-325] 1 - 2 tab PO Q6HR PRN 3 Days #42 tab 06/26/20 [Rx] Follow up Appointment(s)/Referral(s): Skyler Marcano MD [Primary Care Provider] - 1-2 days Jerzy Cuba DO [Doctor of Osteopathic Medicine] - 2 Weeks Patient Instructions/Handouts: Ankle Fracture (DC) Activity/Diet/Wound Care/Special Instructions: Discharge instructions: 1. Nonweightbearing left lower extremity, utilize walker, knee scooter or wheelchair 2. Keep cast clean and dry, keep covered while showering 3. Ice and elevate often 4. Pain medication as needed 5. Aspirin 81 mg twice a day for DVT prophylaxis 6. Plan for [facility]-up at [facility] in 2 weeks for x-ray and clinical evaluation, please contact the office with any questions Discharge Disposition: HOME SELF-CARE
[2020-06-26] MEDS: PANTOPRAZOLE 40 MG/10 ML VIAL IV SCH (08:34)
[2020-06-26] MEDS: ZINC SULFATE 220 MG CAP PO SCH (08:39)
[2020-06-26] MEDS: LOSARTAN 25 MG TAB PO SCH (08:39)
[2020-06-26] MEDS: METOPROLOL TARTRATE 12.5 MG TAB PO SCH (08:40)
[2020-06-26] MEDS: IPRATROPIUM-ALBUTEROL 3 ML NEB INHALATION SCH ×2 (08:46→12:39)
[2020-06-26] MEDS: SYMBICORT 80-4.5 MCG INHALER INHALATION SCH (08:46)
[2020-06-26] MEDS ORDERED: HEPARIN SODIUM,PORCINE 5,000 UNIT/ML 1 ML VIAL SQ SCH (09:00)
--- NOTE | 2020-06-26 09:19 | FL ---
EXAMINATION TYPE: FL guidance operating room DATE OF EXAM: 06/25/2020 HISTORY: Fluoroscopy time 1 minute and 43 seconds of fluoroscopy provided. IMPRESSION: 1. Fluoroscopy time.
[2020-06-26] MEDS: INSULIN ASPART (NovoLOG) 100 UNIT/ML VIAL SQ SCH (10:40)
[2020-06-26] MEDS: CLOTRIMAZOLE 1% CREAM 15 GM TUBE TOPICAL SCH (10:40)
[2020-06-26] MEDS: TRIAMCINOLONE 0.1% CREAM 80 GM TUBE TOPICAL SCH (10:40)
[2020-06-26 11:51] LABS: Glucose,Whole Blood 264 mg/dL (75-99)
--- NOTE | 2020-06-26 12:31 | P.PN ---
Subjective Progress Note Date: 06/26/20 HISTORY OF PRESENT ILLNESS This is a 69-year-old male patient of Dr. Marcano with past medical history of diabetes mellitus type 2 on insulin pump managed by Dr. Gallagher, mild intermittent asthma, hypertension, hyperlipidemia, hypothyroidism. Patient was in his garage moving a recycling can and slipped and fell. He crawled into the house but had continued left ankle discomfort. Patient presented to [facility] emergency center was found to have a fracture dislocation of the left ankle and admitted under the care of orthopedics. He has been afebrile, heart rate 111, blood pressure 166/79, pulse ox 93% on room air. Patient's insulin is on hold until following surgery. We will place patient on NovoLog scale every 6 hours. He states his last hemoglobin A1c was 7.5 which was done at his [employer] office last week. He denies having any complications from diabetes. He does state he has some nausea with anesthesia. Regarding his asthma, patient usually follows with Dr. Mcdonald and appears to be in minimal exacerbation for which DuoNeb treatments, Pulmicort twice daily and 2 doses of IV Solu-Medrol has been ordered. Scheduled surgery at 4 PM today for open reduction internal fixation of the left ankle. Patient also noted to have slightly elevated heart rate for which a beta caroline will be added and patient to receive his losartan prior surgery today. Chest x-ray shows no acute cardiopulmonary process. WBC 12.0, hemoglobin 13.3. INR 0.9. Electrolytes essentially normal, creatinine 0.86. Blood sugar 167. ProBNP 839. Rodriguez virus PCR not detected. 06/26; patient denies any complaints. Plan is to return to his insulin pump today. He has a cast on his left lower extremity. Patient is to be nonweightbearing and he has follow-up with orthopedics in 2 weeks. He states his breathing is better from yesterday. He is status post 2 doses of IV Solu- Medrol. We will plan to send him home on short taper of prednisone and also small dose of Lopressor. Heart rate 100, blood pressure 137/73, pulse ox 93% on room air. Blood sugars are running between 175 and 264. Medication reconciliation reviewed. Patient is cleared for discharge from medicine. Patient will have follow-up with Dr. Krueger. REVIEW OF SYSTEMS Constitutional: No fever, no chills, no night sweats. No weight change. No weakness, fatigue or lethargy. No daytime sleepiness. EENT: No headache. No blurred vision or double vision, no loss of vision. No loss of Hearing, no ringing in the ears, no dizziness. No nasal drainage or congestion. No epistaxis. No sore throat. Lungs: No shortness of breath, cough, no sputum production. Reports wheezingimproved. Cardiovascular: No chest pain, no lower extremity edema. No palpitations. No paroxysmal nocturnal dyspnea. No orthopnea. No lightheadedness or dizziness. No syncopal episodes. Abdominal: No abdominal pain. No nausea, vomiting. No diarrhea. No constipation. No bloody or tarry stools.. No loss of appetite. Genitourinary: No dysuria, increased frequency, urgency. No urinary retention. Musculoskeletal: No myalgias. No muscle weakness, no gait dysfunction, no frequent falls. No back pain. No neck pain. Integumentary: No wounds, no lesions. No rash or pruritus. No unusual bruising. No change in hair or nails. Neurologic: No aphasia. No facial droop. No change in mentation. No head injury. No headache. No paralysis. No paresthesia. Psychiatric: No depression. No anxiety. No mood swings. Endocrine: No abnormal blood sugars. No weight change. PHYSICAL EXAMINATION Gen: This is a 69-year-old male. Patient is resting in bed and appears to be comfortable at rest. No acute distress is noted. No respiratory distress noted. HEENT: Head is atraumatic, normocephalic. Pupils equal, round. Sclerae is anicteric. NECK: Supple. No JVD. No lymphadenopathy. No thyromegaly. LUNGS: Scattered bilateral expiratory wheeze. No intercostal retractions. HEART: Regular rate and rhythm. No murmur. ABDOMEN: Soft. Bowel sounds are present. No masses. No tenderness. EXTREMITIES: No pedal edema. No calf tenderness. Dorsalis pedis +[address] to the left lower leg. NEUROLOGICAL: Patient is awake, alert and oriented x3. Cranial nerves 2 through 12 are grossly intact. ASSESSMENT AND PLAN 1. Left ankle fracture and dislocation status post open reduction internal fixation of the left ankle today with Dr Cuba. Patient is to be nonweightbearing. 2. Mild exacerbation, moderate intermittent asthma. Patient started on DuoNeb treatments scheduled and as needed, Pulmicort 0.5 mg twice daily, Solu-Medrol 60 mg 2 doses and then discontinue. Continue Singulair 10 mg at bedtime 3. Mild tachycardia. Patient started on. 4. Hypertension. Continue losartan 25 mg daily. 5. Lipidemia. Continue atorvastatin 40 mg at bedtime. 6. Diabetes mellitus type 2. Patient is normally on insulin pump which will be on hold until following surgery. Patient will be on insulin scale every 6 hours. 7. Hypothyroidism. Continue levothyroxine 150 g daily. 8. GI prophylaxis. Protonix. 9. Insomnia. Continue trazodone 100 mg at bedtime as needed.. DISCHARGE PLAN Home. Impression and plan of care have been directed as dictated by the signing physician. Maria R Topete nurse practitioner acting as scribe for signing physician. Objective - Vital Signs Vital signs: Vital Signs Temp 98.2 F 06/26/20 07:13 Pulse 100 06/26/20 08:58 Resp 16 06/26/20 07:13 BP 137/73 06/26/20 07:13 Pulse Ox 93 L 06/26/20 07:13 Intake & Output 06/25/20 06/26/20 06/26/20 18:59 06:59 18:59 Intake Total 1530 0 Output Total 1220 Balance 1530 -1220 Weight 90.265 kg Intake: IV 1530 0 Invasive Line 1 30 Output: Urine 1200 Estimated Blood Loss 20 Other: Voiding Method Urinal Urinal # Voids 3 1 - Labs CBC & Chem 7: 06/24/20 19:45 06/24/20 19:45 Labs: Abnormal Lab Results - Last 24 Hours (Table) 06/25/20 06/25/20 06/26/20 Range/Units 16:07 20:20 06:54 POC Glucose (mg/dL) 192 H 219 H 175 H (75-99) mg/dL
[2020-06-26 13:45] VITALS: BP 145/53; PULSE 87
--- NOTE | 2020-07-01 10:24 | P.OP ---
Date of Procedure: 06/25/20 Preoperative Diagnosis: 1. Left ankle, bimalleolar fracture dislocation, closed, comminuted, displaced Postoperative Diagnosis: 1. Left ankle, bimalleolar fracture dislocation, closed, comminuted, displaced Procedure(s) Performed: 1. open reduction and internal fixation of bimalleolar fracture 2. Bivalved Short leg cast placement LLE Implants: Arthrex locking lateral malleolar plate x2 4.0 cannulated screws 55 mm Anesthesia: GETA Surgeon: Jerzy Cuba [employer]: Daniel Brown (Was present for the entire case and necessary due to the complexity of the case. ) Estimated Blood Loss (ml): 100 IV fluids (ml): 1,500 Urine output (ml): 0 Pathology: none sent Condition: stable Disposition: PACU Indications for Procedure: 69 yo male presented after ffs onto LEFT ankle with deformity, inability to ambulate and pain while taking out trash at home. Presented to ED, was found to have an ankle fracture dislocation. Was splinted, marginally reduced by the ED and admitted for pain control and surgical fixation. Pt was s/e and was willing to undergo surgery. We discussed risks and benefits outlined in risk assesment. He and his agreed that surgery was the way to go. He did not have any BHT or LOC with the fall. 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 Operative Findings: Displaced comminuted closed bimalleolar ankle fracture. Description of Procedure: The patient was seen and examined in the preoperative area. All preoperative protocols were followed. Informed consent was obtained risks and benefits of the procedure were discussed at length. Risks including bleeding infection damage to the surrounding tissue and risk of reoperation were discussed with the patient. Risk of anesthesia up to and including was a discussed with the patient. These are outlined in the risk reviewed. They were willing to accept these risks and all of the risks of surgery. The patient was given a weight- based dose of antibiotics in the form of 2 g Ancef IVPB 1. The patient was seen and evaluated by the anesthesia team who deemed them fit for surgery. The site was marked, the patient was willing to proceed with the procedure. The patient was transferred to the operative suite by the Department of anesthesia. There were then drifted off to sleep by the department of anesthesia and LMA with regional block anesthesia was used. Once adequate anesthesia had been obtained the patient was carefully transferred to the operative bed. All bony prominences were padded accordingly. SCDs were placed on the nonoperative lower extremities. Arms were well padded. Left lower extremity was exposed and placed on a bone foam bump was placed in t he patient's left hip you have secured to the table. Tourniquet was placed on the patient's left upper thigh and well-padded. 10:15 placed from this. Preoperative briefing was done with the operative team and everyone was ready for the procedure to start. The patients left lower extremity was then prepped and draped in the normal sterile fashion. Timeout was then performed and all parties in agreement with the procedure to be performed. Incision was made over the lateral aspects the patient's left fibula. This was done in a standard fashion and taken down to the fibula bluntly. This was then subperiosteally dissected to allow for visualization of the fractures as well as the tendons which were protected. 2 clamps were then placed in the proximal and distal fragments and irrigation was used to irrigate out any fracture hematoma as well as curettes used to scrape the area. To allow for fracture reduction. Once in good position the fracture was reduced using 2 clamps which were then placed. Interfrag screw was then drilled and the leg bike technique and placed under fluoroscopic guidance. Once this was accomplished to the clamps were removed and the fracture held stable. The plate was then sized and placed under AP and lateral fluoroscopic guidance. Plate was independent place distal locking screws were placed under AP guidance. Once these were in place we place d the shaft screws accordingly. These were measured and drilled in the same fashion. Plate was in good position fracture held reduction well. We irrigated out this wound copiously with normal sterile saline and covered it. Tension was then drawn to the medial malleoli region. Due to the high amount of swelling in this area percutaneous medial malleolar screws were placed. First guide pin was placed under AP lateral fluoroscopy followed by second guidepin and parallel to this. This allowed for fracture reduction as well as stabilization. Cannulated drill was then placed over this the proximal fragment was drilled. We then placed screws over the guidewires. These held the medial malleolar piece in good reduction. The lateral fluoroscopic guidance was used throughout this process and final images are taken showing good fracture reduction as well as mortise reduction. Cotton test was performed and the syndesmosis was stable external rotation test was performed and the ankle is stable. Wounds were then copiously irrigated with normal sterile saline. Wounds were closed with 0 Vicryl 2-0 Vicryl and 2-0 nylon in the skin. There then cleaned and dressed sterilely with sterile Adaptic 4 x 4's ABDs and web roll. Patient was placed in a well-padded well molded bivalve short leg cast on the left is then overwrapped with an Brian wrap. The patient was then transferred back to their hospital bed. There were awakened by department of anesthesia having tolerated the procedure very well with no complications. The patient was then transported to the postoperative care unit in stable condition.
--- NOTE | 2020-07-07 12:45 | CDI ---
Date: 07.07.20 CDS/Sql Ssrs Ssis Developer Name: Alida Avilez Phone: If any questions, call Julieth Carlisle Wet End Supervisor at [phone] Patient Name: Chaparro Glasgow Admit Date 06.24.20 Discharge Date: 06.26.20 ATTENTION: [facility] Coding Staff appreciate your assistance in clarifying documentation. Please respond to the clarification below the line at the bottom and electronically sign. The [facility] Coding staff will review the response and follow-up if needed. Please note: Queries are made part of the Legal Health Record. If you have any questions, please contact the Wet End Supervisor. Dear Dr. Cuba In order to code to the greatest specificity and for the greatest reimbursement I need the following information: In your H&P you have documented under past med hx that the pt has IDDM type 1, but in the consult and PN by Maria R Topete SHORT ORDER COOK she has documented in her assessment DM type 2. Please clarify whether pt is Type 1 or 2 DM. . Thank you for your kind consideration. MTDD
== END 2020-06-26 15:02 | disposition home or self-care (01) ==
LOC: EC 17:41 → 4SSUR 19:16
PROVIDERS: ADMIT Orthopaedic Surgery; ATTEND Orthopaedic Surgery
DX: S82.842A Displaced bimalleolar fracture of left lower leg, initial encounter for closed fracture (principal); J45.21 Mild intermittent asthma with (acute) exacerbation; E10.9 Type 1 diabetes mellitus without complications; E78.5 Hyperlipidemia, unspecified; I10 Essential (primary) hypertension; L80 Vitiligo; E03.9 Hypothyroidism, unspecified; J30.2 Other seasonal allergic rhinitis; M21.371 Foot drop, right foot; G47.00 Insomnia, unspecified; R00.0 Tachycardia, unspecified; K21.9 Gastro-esophageal reflux disease without esophagitis; Z20.822 Contact with and (suspected) exposure to COVID-19; Z79.899 Other long term (current) drug therapy; Z79.51 Long term (current) use of inhaled steroids; Z79.4 Long term (current) use of insulin; Z79.890 Hormone replacement therapy; Z88.6 Allergy status to analgesic agent; Z96.41 Presence of insulin pump (external) (internal); Z87.81 Personal history of (healed) traumatic fracture; Z98.890 Other specified postprocedural states; Z91.89 Other specified personal risk factors, not elsewhere classified; Z79.52 Long term (current) use of systemic steroids; Z82.49 Family history of ischemic heart disease and other diseases of the circulatory system; Z82.5 Family history of asthma and other chronic lower respiratory diseases; Z80.1 Family history of malignant neoplasm of trachea, bronchus and lung; Z83.49 Family history of other endocrine, nutritional and metabolic diseases; Z82.3 Family history of stroke; Z82.0 Family history of epilepsy and other diseases of the nervous system; Z81.2 Family history of tobacco abuse and dependence; W00.9XXA Unspecified fall due to ice and snow, initial encounter; Y93.H9 Activity, other involving exterior property and land maintenance, building and construction; Y92.015 Private garage of single-family (private) house as the place of occurrence of the external cause
CPT/HCPCS: 27814; 27810; 99285; 36415; 94640 ×4; 93005; 97162; 97166; 64447; 64445; 76942; 83880; 80053; 85025; 85610; 85730; 87635; 73560; 73600 ×2; 73610; 71046; G0378 ×3; C1713; J2250; J1644; J1100; J2930; J0690 ×3; J2405; J2001; J3010; J1170 ×4; J2795; J0330; J2704 ×2; C9113

== ENCOUNTER → 2020-10-21 | Outpatient (CLI) | payer BC ==
[2020-10-21 17:06] LABS: African American GFR (CKD) 89.9 (60.0-200.0); Albumin 4.2 g/dL (3.80-4.90); Albumin/Globulin Ratio 1.91 (1.60-3.17); Anion Gap 8.1 mmol/L (4.00-12.00); Calcium 8.9 mg/dL (8.7-10.3); Carbon Dioxide 23.9 mmol/L (21.6-31.8); Chol/HDL Ratio 2.25; Globulin 2.2 g/dL (1.6-3.3); LDL Cholesterol,Calculated 79.8 mg/dL (0.0-131.0); Non-African American GFR(CKD) 77.5 (60.0-200.0); Total Bilirubin 0.5 mg/dL (0.3-1.2); Total Protein 6.4 g/dL (6.2-8.2); VLDL Calculation 10.2 mg/dL (5.00-40.00)
[2020-10-21 19:43] LABS: Hemoglobin A1C 7.8 % (4.0-6.0)
[2020-10-22 01:18] LABS: Urine Creatinine 47.4 mg/dL
== END | disposition home or self-care (01) ==
LOC: LABWHC1 08:23
PROVIDERS: ATTEND Internal Medicine Endocrinology, Diabetes & Metabolism
DX: E10.65 Type 1 diabetes mellitus with hyperglycemia (principal)
CPT/HCPCS: 36415; 80053; 80061; 82043; 82570; 83036; 84443

== ENCOUNTER → 2020-10-27 | Outpatient (CLI) | payer BC | END | disposition home or self-care (01) | LOC: LABWHC1 09:19 | PROVIDERS: ATTEND Family Medicine | DX: M85.80 Other specified disorders of bone density and structure, unspecified site (principal) | CPT/HCPCS: 36415; 82306 ==

== ENCOUNTER 2020-11-15 08:07 | Emergency (ER) | payer BC ==
[2020-11-15 08:11] VITALS: RESP 18; TEMP 98
[2020-11-15] MEDS ORDERED: ALBUTEROL NEBULIZED 2.5 MG/3 ML INHALATION STA (08:28)
[2020-11-15] MEDS ORDERED: IPRATROPIUM 0.5 MG/2.5 ML NEBU INHALATION STA (08:28)
[2020-11-15] MEDS ORDERED: methylPREDNISolone SOD SUCCI 125 MG/2 ML VIAL IV STA (08:28)
--- NOTE | 2020-11-15 08:37 | ED ---
General Adult HPI - General Chief complaint: Shortness of Breath Stated complaint: asthma Source: patient, RN notes reviewed, old records reviewed Mode of arrival: ambulatory Limitations: no limitations - History of Present Illness Initial comments: This is a 69-year-old male who has a past medical history significant for asthma. Patient presents today stating that he is having an exacerbation of asthma. Patient states he is having some difficulty breathing. The tightness in his chest that is typical of asthma. Patient denies any chest pressure or pain. Patient denies any palpitations per patient denies any recent fever chills but he does have a cough that is somewhat productive. Patient denies any abdominal pain or nausea. Patient denies any worsening swelling to his legs or calf tenderness. - Related Data Home Medications Medication Instructions Recorded Confirmed Albuterol Sulfate [Proair Hfa] 2 puff INHALATION RT-Q6H PRN 12/16/13 06/24/20 Atorvastatin Calcium [Lipitor] 40 mg PO HS 12/16/13 06/24/20 Montelukast Sodium [Singulair] 10 mg PO HS 12/16/13 06/24/20 Fluticasone/Vilanterol [Breo 1 puff INHALATION RT-DAILY 09/26/14 06/24/20 Ellipta 100-25 Mcg Inhaler] traZODone HCL [Desyrel] 100 mg PO HS PRN 09/26/14 06/24/20 Insulin Aspart (For Pump) [NovoLOG 0.01 unit SQ-PUMP CONTINUOUS 02/06/17 06/24/20 (For Pump)] Levothyroxine Sodium [Synthroid] 150 mcg PO DAILY 02/06/17 06/24/20 Losartan [Cozaar] 25 mg PO DAILY 02/06/17 06/24/20 Clotrimazole Cream [Lotrimin Cream] 1 applic TOPICAL BID 06/24/20 06/24/20 Cyclobenzaprine [Flexeril] 5 mg PO TID PRN 06/24/20 06/24/20 HYDROcodone/APAP 7.5-325MG [[place] 1 tab PO TID PRN 06/24/20 06/24/20 7.5-325] Hydrocortisone Cream 1 applic TOPICAL BID 06/24/20 06/24/20 [Hydrocortisone 2.5% Cream] Prevagen 1 tab PO DAILY 06/24/20 06/24/20 Zinc 50 mg PO DAILY 06/24/20 06/24/20 Previous Rx's Medication Instructions Recorded Levalbuterol HCl [Xopenex 1.25 mg INHALATION RT-QID PRN #60 10/02/14 Nebulized] ml Aspirin [Adult Low Dose Aspirin EC] 81 mg PO BID #60 tablet. 06/26/20 Famotidine [Pepcid] 20 mg PO DAILY #30 tablet 06/26/20 HYDROcodone/APAP 10-325MG [[place] 1 - 2 tab PO Q6HR PRN 3 Days #42 06/26/20 10-325] tab Metoprolol Tartrate [Lopressor] 12.5 mg PO BID #60 tab 06/26/20 predniSONE 0 mg PO DIRECTED #30 tab 06/26/20 predniSONE [Deltasone] 40 mg PO DAILY #8 tab 11/15/20 Allergies Allergy/AdvReac Type Severity Reaction Status Date / Time aspirin Allergy Unknown Rash/Hives Verified 11/15/20 08:11 Review of Systems ROS Statement: Those systems with pertinent positive or pertinent negative responses have been documented in the HPI. ROS Other: All systems not noted in ROS Statement are negative. Past Medical History Past Medical History: Asthma, Diabetes Mellitus, Hyperlipidemia, Hypertension, Skin Disorder, Thyroid Disorder Additional Past Medical History / Comment(s): Other HX: Moderate persistant asthma, IDDM type I- insulin pump and subcutaneous diabetic sensor, hypothyroidism, vitiligo for 17 years, seasonal allergic rhinitis, right foot drop secondary to pelvic fracture History of Any Multi-Drug Resistant Organisms: None Reported Past Surgical History: Orthopedic Surgery Additional Past Surgical History / Comment(s): reconstruction of pelvis (Feb 2011), bilateral hands tendon release in fingers (2002), Arthoscopic in right knee (1996), steel rodrigo in great toe of right foot (1997), bilateral arthroscopic elbow surgery, left elbow radial nerve release. Past Anesthesia/Blood Transfusion Reactions: Postoperative Nausea & Vomiting (PONV) Additional Past Anesthesia/Blood Transfusion Reaction / Comment(s): Only after the tendon release in fingers Past Psychological History: No Psychological Hx Reported Smoking Status: Never smoker Past Alcohol Use History: None Reported Past Drug Use History: None Reported - Past Family History Father Family Medical History: Myocardial Infarction ([place]) Additional Family Medical History / Comment(s): had in 1972 Mother Family Medical History: Asthma, Cancer, Thyroid Disorder Additional Family Medical History / Comment(s): lung cancer (diagnosed when she was 79) Brother(s) Family Medical History: CVA/TIA, Neurologic Disorder Additional Family Medical History / Comment(s): parkinson's disease, subdural hematoma. Brother is . Sister(s) Family Medical History: No Reported History Daughter(s) Family Medical History: No Reported History Son(s) Family Medical History: No Reported History General Exam - General Exam Comments Initial Comments: GENERAL: Patient is well-developed and well-nourished. Patient is nontoxic and well- hydrated and is in mild distress. ENT: Neck is soft and supple. No significant lymphadenopathy is noted. Oropharynx is clear. Moist mucous membranes. Neck has full range of motion without eliciting any pain. EYES: The sclera were anicteric and conjunctiva were pink and moist. Extraocular movements were intact and pupils were equal round and reactive to light. Eyelids were unremarkable. PULMONARY: Diminished breath sounds and expiratory wheezing CARDIOVASCULAR: There is a regular rate and rhythm without any murmurs gallops or rubs. ABDOMEN: Soft and nontender with normal bowel sounds. No palpable organomegaly was noted. There is no palpable pulsatile mass. SKIN: Skin is clear with no lesions or rashes and otherwise unremarkable. NEUROLOGIC: Patient is alert and oriented x3. Cranial nerves II through XII are grossly intact. Motor and sensory are also intact. Normal speech, volume and content. Symmetrical smile. MUSCULOSKELETAL: Normal extremities with adequate strength and full range of motion. Patient has 1+ edema to the left leg which she states has been normal for him. Patient daniel hopkins has no calf tenderness. LYMPHATICS: No significant lymphadenopathy is noted PSYCHIATRIC: Normal psychiatric evaluation. Limitations: no limitations Course Vital Signs 11/15/20 11/15/20 11/15/20 08:09 08:53 09:09 Temperature 98 F Pulse Rate 76 81 86 Respiratory 18 18 18 Rate Blood Pressure 170/65 O2 Sat by Pulse 97 Oximetry 11/15/20 11/15/20 09:24 10:01 Temperature Pulse Rate 84 Respiratory 18 Rate Blood Pressure 149/59 O2 Sat by Pulse 96 96 Oximetry Medical Decision Making - Medical Decision Making EKG shows sinus rhythm at 75 bpm with multiple PVCs HI interval is 152 QRS is 84 QT interval 36 QTC is 431. Patient's EKG shows no ST segment elevation or depression. Patient got 2 breathing treatments in the emergency department and steroids and was feeling considerably better afterwards. I listened to his lungs and they were clear without any expiratory wheezing had better better aeration. Patient will be sent home with steroids. Chest x-ray shows no acute abnormality. - Lab Data Result diagrams: 11/15/20 08:33 11/15/20 08:33 Lab Results 11/15/20 11/15/20 Range/Units 08:33 08:33 WBC 8.8 (3.8-10.6) k/uL RBC 4.73 (4.30-5.90) m/uL Hgb 14.1 (13.0-17.5) gm/dL Hct 40.7 (39.0-53.0) % MCV 86.0 (80.0-100.0) fL MCH 29.7 (25.0-35.0) pg MCHC 34.6 (31.0-37.0) g/dL RDW 13.8 (11.5-15.5) % Plt Count 212 (150-450) k/uL MPV 7.1 Neutrophils % 71 % Lymphocytes % 15 % Monocytes % 5 % Eosinophils % 6 % Basophils % 1 % Neutrophils # 6.3 (1.3-7.7) k/uL Lymphocytes # 1.4 (1.0-4.8) k/uL Monocytes # 0.5 (0-1.0) k/uL Eosinophils # 0.6 (0-0.7) k/uL Basophils # 0.0 (0-0.2) k/uL Sodium 138 (137-145) mmol/L Potassium 4.3 (3.5-5.1) mmol/L Chloride 110 H (98-107) mmol/L Carbon Dioxide 23 (22-30) mmol/L Anion Gap 5 mmol/L BUN 17 (9-20) mg/dL Creatinine 0.78 (0.66-1.25) mg/dL Est GFR (CKD-EPI)AfAm >90 (>60 ml/min/1.73 sqM) Est GFR (CKD-EPI)NonAf >90 (>60 ml/min/1.73 sqM) Glucose 209 H (74-99) mg/dL Calcium 8.8 (8.4-10.2) mg/dL Magnesium 1.8 (1.6-2.3) mg/dL Total Bilirubin 0.7 (0.2-1.3) mg/dL AST 27 (17-59) U/L ALT 25 (4-49) U/L Alkaline Phosphatase 61 (38-126) U/L Total Protein 6.1 L (6.3-8.2) g/dL Albumin 3.6 (3.5-5.0) g/dL Disposition Clinical Impression: Asthma exacerbation Disposition: HOME SELF-CARE Condition: Good Instructions (If sedation given, give patient instructions): Asthma (ED) Prescriptions: predniSONE [Deltasone] 40 mg PO DAILY #8 tab Is patient prescribed a controlled substance at d/c from ED?: No Referrals: Skyler Marcano MD [Primary Care Provider] - 1-2 days Time of Disposition: 09:44
[2020-11-15 08:44] LABS: Basophils % (A) 1 %; Eosinophils # (A) 0.6 k/uL (0-0.7); Eosinophils % (A) 6 %; HCT 40.7 % (39.0-53.0); HGB 14.1 gm/dL (13.0-17.5); Lymphocytes # (A) 1.4 k/uL (1.0-4.8); Lymphocytes % (A) 15 %; MCH 29.7 pg (25.0-35.0); MCHC 34.6 g/dL (31.0-37.0); Mean Platelet Volume 7.1; Monocytes # (A) 0.5 k/uL (0-1.0); Monocytes % (A) 5 %; Neutrophils # (A) 6.3 k/uL (1.3-7.7); Neutrophils % (A) 71 %; Platelet Count 212 k/uL (150-450); RBC 4.73 m/uL (4.30-5.90); RDW 13.8 % (11.5-15.5); WBC 8.8 k/uL (3.8-10.6)
[2020-11-15 09:09] LABS: ALT 25 U/L (4-49); AST 27 U/L (17-59); African American GFR (CKD) >90 (>60 ml/min/1.73 sqM); Albumin 3.6 g/dL (3.5-5.0); Alkaline Phosphatase 61 U/L (38-126); Anion Gap 5 mmol/L; Blood Urea Nitrogen 17 mg/dL (9-20); Calcium 8.8 mg/dL (8.4-10.2); Carbon Dioxide 23 mmol/L (22-30); Chloride 110 mmol/L (98-107); Glucose 209 mg/dL (74-99); Magnesium 1.8 mg/dL (1.6-2.3); Non-African American GFR(CKD) >90 (>60 ml/min/1.73 sqM); Potassium 4.3 mmol/L (3.5-5.1); Sodium 138 mmol/L (137-145); Total Bilirubin 0.7 mg/dL (0.2-1.3); Total Protein 6.1 g/dL (6.3-8.2)
[2020-11-15 09:25] VITALS: BP 149/59; PULSE 84
--- NOTE | 2020-11-15 09:32 | XR ---
EXAMINATION TYPE: XR chest 2V DATE OF EXAM: 11/15/2020 COMPARISON: 04/03/2021 HISTORY: Difficulty breathing TECHNIQUE: Frontal and lateral views of the chest are obtained. FINDINGS AND IMPRESSION: No focal air space opacity, pleural effusion, or pneumothorax seen. The cardiac silhouette size is within normal limits. No acute osseous abnormality. Degenerative changes are seen in the spine. Unremarkable chest radiographs.
== END 2020-11-15 10:04 | disposition home or self-care (01) ==
LOC: EC 08:07
DX: J45.901 Unspecified asthma with (acute) exacerbation (principal); E78.5 Hyperlipidemia, unspecified; I10 Essential (primary) hypertension; E07.9 Disorder of thyroid, unspecified; E10.9 Type 1 diabetes mellitus without complications
CPT/HCPCS: 36415; 94640; 93005; 80053; 83735; 85025; 71046; 99285; 96374; J2930

== ENCOUNTER 2020-11-24 17:49 | Inpatient (IN) | payer BC, MEDICARE ==
[2020-11-24] MEDS ORDERED: IPRATROPIUM 0.5 MG/2.5 ML NEBU INHALATION STA (18:23)
[2020-11-24] MEDS ORDERED: methylPREDNISolone SOD SUCCI 125 MG/2 ML VIAL IV STA (18:23)
[2020-11-24] MEDS ORDERED: ALBUTEROL NEBULIZED 2.5 MG/3 ML INHALATION STA (18:23)
--- NOTE | 2020-11-24 18:50 | ED ---
General Adult HPI - General Chief complaint: Shortness of Breath Stated complaint: SOB/Cough Time Seen by Provider: 11/24/20 18:00 Source: patient, RN notes reviewed, old records reviewed Mode of arrival: ambulatory Limitations: no limitations - History of Present Illness Initial comments: 69-year-old male who presents emergency department with past medical history significant for asthma. Patient comes in complaining of these having difficulty breathing. Patient states a week ago Monday he was in the emergency department got a bunch treatments and steroids was feeling considerably better. Patient states patient started having difficulty breathing and on Monday and got worse again. Patient went to see his primary medical care doctor on Monday took antibiotics Or steroids but is not doing any better today. Patient states he's coughed up quite a bit of white sputum and occasional yellow tinge to it. Patient states she's had no fever chills per patient states been taking Zithromax. Patient denies any calf tenderness or leg swelling. Patient denies any other symptoms at this time. - Related Data Home Medications Medication Instructions Recorded Confirmed Albuterol Sulfate [Proair Hfa] 2 puff INHALATION RT-Q6H PRN 12/16/13 06/24/20 Atorvastatin Calcium [Lipitor] 40 mg PO HS 12/16/13 06/24/20 Montelukast Sodium [Singulair] 10 mg PO HS 12/16/13 06/24/20 Fluticasone/Vilanterol [Breo 1 puff INHALATION RT-DAILY 09/26/14 06/24/20 Ellipta 100-25 Mcg Inhaler] traZODone HCL [Desyrel] 100 mg PO HS PRN 09/26/14 06/24/20 Insulin Aspart (For Pump) [NovoLOG 0.01 unit SQ-PUMP CONTINUOUS 02/06/17 06/24/20 (For Pump)] Levothyroxine Sodium [Synthroid] 150 mcg PO DAILY 02/06/17 06/24/20 Losartan [Cozaar] 25 mg PO DAILY 02/06/17 06/24/20 Clotrimazole Cream [Lotrimin Cream] 1 applic TOPICAL BID 06/24/20 06/24/20 Cyclobenzaprine [Flexeril] 5 mg PO TID PRN 06/24/20 06/24/20 HYDROcodone/APAP 7.5-325MG [Franklin 1 tab PO TID PRN 06/24/20 06/24/20 7.5-325] Hydrocortisone Cream 1 applic TOPICAL BID 06/24/20 06/24/20 [Hydrocortisone 2.5% Cream] Prevagen 1 tab PO DAILY 06/24/20 06/24/20 Zinc 50 mg PO DAILY 06/24/20 06/24/20 Previous Rx's Medication Instructions Recorded Levalbuterol HCl [Xopenex 1.25 mg INHALATION RT-QID PRN #60 10/02/14 Nebulized] ml Aspirin [Adult Low Dose Aspirin EC] 81 mg PO BID #60 tablet. 06/26/20 Famotidine [Pepcid] 20 mg PO DAILY #30 tablet 06/26/20 HYDROcodone/APAP 10-325MG [Franklin 1 - 2 tab PO Q6HR PRN 3 Days #42 06/26/20 10-325] tab Metoprolol Tartrate [Lopressor] 12.5 mg PO BID #60 tab 06/26/20 predniSONE 0 mg PO DIRECTED #30 tab 06/26/20 predniSONE [Deltasone] 40 mg PO DAILY #8 tab 11/15/20 Allergies Allergy/AdvReac Type Severity Reaction Status Date / Time aspirin Allergy Unknown Rash/Hives Verified 11/24/20 18:06 Review of Systems ROS Statement: Those systems with pertinent positive or pertinent negative responses have been documented in the HPI. ROS Other: All systems not noted in ROS Statement are negative. Past Medical History Past Medical History: Asthma, Diabetes Mellitus, Hyperlipidemia, Hypertension, Skin Disorder, Thyroid Disorder Additional Past Medical History / Comment(s): Other HX: Moderate persistant asthma, IDDM type I- insulin pump and subcutaneous diabetic sensor, hypothyroi dism, vitiligo for 17 years, seasonal allergic rhinitis, right foot drop secondary to pelvic fracture History of Any Multi-Drug Resistant Organisms: None Reported Past Surgical History: Orthopedic Surgery Additional Past Surgical History / Comment(s): reconstruction of pelvis (Feb 2011), bilateral hands tendon release in fingers (2002), Arthoscopic in right knee (1996), steel rodrigo in great toe of right foot (1997), bilateral arthroscopic elbow surgery, left elbow radial nerve release. Past Anesthesia/Blood Transfusion Reactions: Postoperative Nausea & Vomiting (PONV) Additional Past Anesthesia/Blood Transfusion Reaction / Comment(s): Only after the tendon release in fingers Past Psychological History: No Psychological Hx Reported Smoking Status: Never smoker Past Alcohol Use History: None Reported Past Drug Use History: None Reported - Past Family History Father Family Medical History: Myocardial Infarction ([place]) Additional Family Medical History / Comment(s): had in 1972 Mother Family Medical History: Asthma, Cancer, Thyroid Disorder Additional Family Medical History / Comment(s): lung cancer (diagnosed when she was 79) Brother(s) Family Medical History: CVA/TIA, Neurologic Disorder Additional Family Medical History / Comment(s): parkinson's disease, subdural hematoma. Brother is . Sister(s) Family Medical History: No Reported History Daughter(s) Family Medical History: No Reported History Son(s) Family Medical History: No Reported History General Exam - General Exam Comments Initial Comments: GENERAL: Patient is well-developed and well-nourished. Patient is nontoxic and well- hydrated and is in mild distress. ENT: Neck is soft and supple. No significant lymphadenopathy is noted. Oropharynx is clear. Moist mucous membranes. Neck has full range of motion without eliciting any pain. EYES: The sclera were anicteric and conjunctiva were pink and moist. Extraocular movements were intact and pupils were equal round and reactive to light. Eyelids were unremarkable. PULMONARY: Unlabored respirations. Diffuse wheezing bilaterally CARDIOVASCULAR: There is a regular rate and rhythm without any murmurs gallops or rubs. ABDOMEN: Soft and nontender with normal bowel sounds. SKIN: Skin is clear with no lesions or rashes and otherwise unremarkable. NEUROLOGIC: Patient is alert and oriented x3. Cranial nerves II through XII are grossly intact. Motor and sensory are also intact. Normal speech, volume and content. Symmetrical smile. MUSCULOSKELETAL: Normal extremities with adequate strength and full range of motion. LYMPHATICS: No significant lymphadenopathy is noted PSYCHIATRIC: Normal psychiatric evaluation. Limitations: no limitations Course Vital Signs 11/24/20 11/24/20 11/24/20 18:06 19:06 19:22 Temperature 97.7 F Pulse Rate 95 85 88 Respiratory 18 18 18 Rate Blood Pressure 142/70 O2 Sat by Pulse 95 Oximetry 11/24/20 20:00 Temperature Pulse Rate 112 H Respiratory 18 Rate Blood Pressure 142/71 O2 Sat by Pulse 95 Oximetry Medical Decision Making - Medical Decision Making Patient's EKG shows sinus rhythm with frequent PVCs and occasional PACs at 93 bpm [place] interval 140 dresses 84 Q-T intervals 340 QTC is 432. Patient's EKG shows no ST segment elevation or depression. Patient's chest x-ray shows no acute abnormality. Patient received 3 breathing treatments in the emergency department continues to wheeze diffusely. Patient also received Solu-Medrol the wrist department xenia Jones. I spoke with Dr. Beasley she agreed to admit the patient admitted the patient wrote admitting orders. - Lab Data Result diagrams: 11/24/20 19:13 11/24/20 19:13 Lab Results 11/24/20 11/24/20 11/24/20 Range/Units 19:13 19:13 19:13 WBC 17.3 H (3.8-10.6) k/uL RBC 4.71 (4.30-5.90) m/uL Hgb 13.9 (13.0-17.5) gm/dL Hct 40.4 (39.0-53.0) % MCV 85.9 (80.0-100.0) fL MCH 29.5 (25.0-35.0) pg MCHC 34.3 (31.0-37.0) g/dL RDW 13.8 (11.5-15.5) % Plt Count 307 (150-450) k/uL MPV 7.3 Neutrophils % 88 % Lymphocytes % 5 % Monocytes % 6 % Eosinophils % 1 % Basophils % 0 % Neutrophils # 15.2 H (1.3-7.7) k/uL Lymphocytes # 0.9 L (1.0-4.8) k/uL Monocytes # 1.0 (0-1.0) k/uL Eosinophils # 0.1 (0-0.7) k/uL Basophils # 0.0 (0-0.2) k/uL PT 9.8 (9.0-12.0) sec INR 0.9 (<1.2) APTT 22.2 (22.0-30.0) sec Sodium 138 (137-145) mmol/L Potassium 5.0 (3.5-5.1) mmol/L Chloride 106 (98-107) mmol/L Carbon Dioxide 22 (22-30) mmol/L Anion Gap 10 mmol/L BUN 31 H (9-20) mg/dL Creatinine 1.02 (0.66-1.25) mg/dL Est GFR (CKD-EPI)AfAm 88 (>60 ml/min/1.73 sqM) Est GFR (CKD-EPI)NonAf 76 (>60 ml/min/1.73 sqM) Glucose 163 H (74-99) mg/dL POC Glucose (mg/dL) (75-99) mg/dL POC Glu Internal Grinder ID Plasma Lactic Acid Jason (0.7-2.0) mmol/L Calcium 9.5 (8.4-10.2) mg/dL Magnesium 2.3 (1.6-2.3) mg/dL Total Bilirubin 0.3 (0.2-1.3) mg/dL AST 20 (17-59) U/L ALT 26 (4-49) U/L Alkaline Phosphatase 74 (38-126) U/L Troponin I (0.000-0.034) ng/mL NT-Pro-B Natriuret Pep pg/mL Total Protein 6.4 (6.3-8.2) g/dL Albumin 3.9 (3.5-5.0) g/dL 11/24/20 11/24/20 11/24/20 Range/Units 19:13 19:13 19:13 WBC (3.8-10.6) k/uL RBC (4.30-5.90) m/uL Hgb (13.0-17.5) gm/dL Hct (39.0-53.0) % MCV (80.0-100.0) fL MCH (25.0-35.0) pg MCHC (31.0-37.0) g/dL RDW (11.5-15.5) % Plt Count (150-450) k/uL MPV Neutrophils % % Lymphocytes % % Monocytes % % Eosinophils % % Basophils % % Neutrophils # (1.3-7.7) k/uL Lymphocytes # (1.0-4.8) k/uL Monocytes # (0-1.0) k/uL Eosinophils # (0-0.7) k/uL Basophils # (0-0.2) k/uL PT (9.0-12.0) sec INR (<1.2) APTT (22.0-30.0) sec Sodium (137-145) mmol/L Potassium (3.5-5.1) mmol/L Chloride (98-107) mmol/L Carbon Dioxide (22-30) mmol/L Anion Gap mmol/L BUN (9-20) mg/dL Creatinine (0.66-1.25) mg/dL Est GFR (CKD-EPI)AfAm (>60 ml/min/1.73 sqM) Est GFR (CKD-EPI)NonAf (>60 ml/min/1.73 sqM) Glucose (74-99) mg/dL POC Glucose (mg/dL) (75-99) mg/dL POC Glu Internal Grinder ID Plasma Lactic Acid Jason 1.1 (0.7-2.0) mmol/L Calcium (8.4-10.2) mg/dL Magnesium (1.6-2.3) mg/dL Total Bilirubin (0.2-1.3) mg/dL AST (17-59) U/L ALT (4-49) U/L Alkaline Phosphatase (38-126) U/L Troponin I <0.012 (0.000-0.034) ng/mL NT-Pro-B Natriuret Pep 873 pg/mL Total Protein (6.3-8.2) g/dL Albumin (3.5-5.0) g/dL 11/24/20 Range/Units 19:16 WBC (3.8-10.6) k/uL RBC (4.30-5.90) m/uL Hgb (13.0-17.5) gm/dL Hct (39.0-53.0) % MCV (80.0-100.0) fL MCH (25.0-35.0) pg MCHC (31.0-37.0) g/dL RDW (11.5-15.5) % Plt Count (150-450) k/uL MPV Neutrophils % % Lymphocytes % % Monocytes % % Eosinophils % % Basophils % % Neutrophils # (1.3-7.7) k/uL Lymphocytes # (1.0-4.8) k/uL Monocytes # (0-1.0) k/uL Eosinophils # (0-0.7) k/uL Basophils # (0-0.2) k/uL PT (9.0-12.0) sec INR (<1.2) APTT (22.0-30.0) sec Sodium (137-145) mmol/L Potassium (3.5-5.1) mmol/L Chloride (98-107) mmol/L Carbon Dioxide (22-30) mmol/L Anion Gap mmol/L BUN (9-20) mg/dL Creatinine (0.66-1.25) mg/dL Est GFR (CKD-EPI)AfAm (>60 ml/min/1.73 sqM) Est GFR (CKD-EPI)NonAf (>60 ml/min/1.73 sqM) Glucose (74-99) mg/dL POC Glucose (mg/dL) 160 H (75-99) mg/dL POC Glu Internal Grinder ID [email or web address] Plasma Lactic Acid Jason (0.7-2.0) mmol/L Calcium (8.4-10.2) mg/dL Magnesium (1.6-2.3) mg/dL Total Bilirubin (0.2-1.3) mg/dL AST (17-59) U/L ALT (4-49) U/L Alkaline Phosphatase (38-126) U/L Troponin I (0.000-0.034) ng/mL NT-Pro-B Natriuret Pep pg/mL Total Protein (6.3-8.2) g/dL Albumin (3.5-5.0) g/dL Disposition Clinical Impression: Acute severe exacerbation of asthma Disposition: ADMITTED IP TO THIS HOSP Referrals: Skyler Marcano MD [Primary Care Provider] - 1-2 days Time of Disposition: 20:18
[2020-11-24 19:19] LABS: Glucose,Whole Blood 160 mg/dL (75-99)
[2020-11-24 19:28] LABS: Basophils % (A) 0 %; Eosinophils # (A) 0.1 k/uL (0-0.7); Eosinophils % (A) 1 %; HCT 40.4 % (39.0-53.0); HGB 13.9 gm/dL (13.0-17.5); Lymphocytes # (A) 0.9 k/uL (1.0-4.8); Lymphocytes % (A) 5 %; MCH 29.5 pg (25.0-35.0); MCHC 34.3 g/dL (31.0-37.0); MCV 85.9 fL (80.0-100.0); Mean Platelet Volume 7.3; Monocytes % (A) 6 %; Neutrophils # (A) 15.2 k/uL (1.3-7.7); Neutrophils % (A) 88 %; Platelet Count 307 k/uL (150-450); RBC 4.71 m/uL (4.30-5.90); RDW 13.8 % (11.5-15.5); WBC 17.3 k/uL (3.8-10.6)
--- NOTE | 2020-11-24 19:34 | XR ---
EXAMINATION TYPE: XR chest 2V DATE OF EXAM: 11/24/2020 COMPARISON: 11/15/2020. HISTORY: Difficulty breathing. TECHNIQUE: Frontal and lateral views of the chest are obtained. FINDINGS: There is no focal air space opacity, pleural effusion, or pneumothorax seen. The cardiac silhouette size is within normal limits. The osseous structures are intact. IMPRESSION: No acute cardiopulmonary process.
[2020-11-24 19:45] LABS: Albumin 3.9 g/dL (3.5-5.0); Calcium 9.5 mg/dL (8.4-10.2); Magnesium 2.3 mg/dL (1.6-2.3); Total Bilirubin 0.3 mg/dL (0.2-1.3); Total Protein 6.4 g/dL (6.3-8.2)
[2020-11-24 19:48] LABS: INR 0.9 (<1.2); Partial Thromboplastin Time 22.2 sec (22.0-30.0); Prothrombin Time 9.8 sec (9.0-12.0)
[2020-11-24] MEDS ORDERED: traZODone HCL 100 MG TAB PO PRN (22:04)
[2020-11-24] MEDS ORDERED: LORATADINE 10 MG TAB PO PRN (22:04)
[2020-11-24] MEDS ORDERED: HYDROcodone/APAP 5-325MG 1 EACH TAB PO PRN (22:04)
[2020-11-24] MEDS ORDERED: FAMOTIDINE 20 MG TAB PO PRN (22:04)
[2020-11-24] MEDS ORDERED: LEVOFLOXACIN 250MG-D5W PMX 250 MG in DEXTROSE/WATER 1 50ML.BAG IVPB SCH (22:15)
[2020-11-24] MEDS ORDERED: Insulin Aspart (For Pump) 100 UNIT/ML VIAL SQ-PUMP SCH (22:15)
[2020-11-24] MEDS: MONTELUKAST 10 MG TAB PO SCH (23:40)
[2020-11-24] MEDS: methylPREDNISolone SOD SUCCI 125 MG/2 ML VIAL IV SCH (23:42)
[2020-11-25] MEDS: IPRATROPIUM-ALBUTEROL 3 ML NEB INHALATION PRN ×2 (01:20→17:36)
[2020-11-25] MEDS: LEVOTHYROXINE 75 MCG TAB PO SCH (05:25)
[2020-11-25] MEDS: methylPREDNISolone SOD SUCCI 125 MG/2 ML VIAL IV SCH ×3 (05:25→17:18)
[2020-11-25] MEDS: guaiFENesin-Coden 100-10MG/5ML 10 ML CUP PO PRN (07:26)
[2020-11-25] MEDS: LOSARTAN 25 MG TAB PO SCH (07:26)
[2020-11-25] MEDS: INSULIN PUMP MEAL BOLUS 1 UNIT MISC MISCELLANE SCH ×4 (07:30→21:45)
[2020-11-25 07:31] LABS: Basophils % (A) 0 %; Eosinophils # (A) 0.1 k/uL (0-0.7); Eosinophils % (A) 1 %; HCT 40.3 % (39.0-53.0); HGB 13.7 gm/dL (13.0-17.5); Lymphocytes # (A) 0.5 k/uL (1.0-4.8); Lymphocytes % (A) 3 %; MCH 29.4 pg (25.0-35.0); MCV 86.6 fL (80.0-100.0); Mean Platelet Volume 7.6; Monocytes # (A) 0.2 k/uL (0-1.0); Monocytes % (A) 2 %; Neutrophils # (A) 13.6 k/uL (1.3-7.7); Neutrophils % (A) 94 %; Platelet Count 301 k/uL (150-450); RBC 4.66 m/uL (4.30-5.90); WBC 14.4 k/uL (3.8-10.6)
[2020-11-25] MEDS ORDERED: Insulin Aspart (For Pump) 100 UNIT/ML VIAL SQ-PUMP SCH (07:45)
[2020-11-25 07:55] LABS: African American GFR (CKD) 90 (>60 ml/min/1.73 sqM); Anion Gap 10 mmol/L; Blood Urea Nitrogen 33 mg/dL (9-20); Calcium 9.4 mg/dL (8.4-10.2); Carbon Dioxide 23 mmol/L (22-30); Chloride 104 mmol/L (98-107); Glucose 194 mg/dL (74-99); Non-African American GFR(CKD) 78 (>60 ml/min/1.73 sqM); Potassium 4.5 mmol/L (3.5-5.1); Sodium 137 mmol/L (137-145)
[2020-11-25] MEDS ORDERED: INSULIN PUMP ACTIVE INSULIN 1 EACH MISC MISCELLANE PRN (08:56)
[2020-11-25] MEDS ORDERED: INSULIN PUMP TARGET GLUCOSE 1 EACH MISC MISCELLANE PRN (08:56)
[2020-11-25] MEDS ORDERED: INSULIN PUMP BASAL RATES 1 EACH MISC MISCELLANE PRN (08:56)
[2020-11-25] MEDS ORDERED: INSULIN ASPART (NovoLOG) 100 UNIT/ML VIAL SQ PRN (08:56)
[2020-11-25] MEDS ORDERED: INSPUCOR MISCELLANE PRN (08:56)
[2020-11-25] MEDS: guaiFENesin 600 MG TABLET.ER PO SCH (09:48)
[2020-11-25 11:30] LABS: Glucose,Whole Blood 245 mg/dL (75-99)
[2020-11-25] MEDS ORDERED: INSULIN PUMP MEAL BOLUS 1 UNIT MISC MISCELLANE SCH (12:30)
--- NOTE | 2020-11-25 13:39 | P.CNPUL ---
History of Present Illness Consult date: 11/25/20 Requesting physician: Melissa Beasley Reason for consult: dyspnea, asthma Chief complaint: Chest tightness, wheeze, shortness of breath History of present illness: This is a very pleasant 69-year-old gentleman who has a history of diabetes mellitus maintained on an insulin pump, hyperlipidemia, hypothyroidism, gastroesophageal reflux disease. He also has a history of moderate to severe persistent chronic bronchial asthma. He follows with Dr. Mcdonald in our office for the same. He is maintained on Breo, pro-air, nebulized treatments, Singulair. He presented here to the emergency room on 11/15/2020 after being exposed to new drywall and drywall dust and his home. He was given updraft rob atments IV Solu-Medrol improved and discharged home. He had been treated with antibiotics and steroids again this week by his PCP Dr. Marcano. Yesterday however he was having worsening shortness of breath chest tightness and wheezing and presented to the emergency room for the same. Chest x-ray reveals no acute pulmonary process. White count 14.4. Hemoglobin 13.7. Platelets 301. Sodium 137. Potassium 4.5. Creatinine 1.00. Glucose 194. He's been initiated on DuoNeb inhalations, Pulmicort and Perforomist inhalations, IV Solu-Medrol. Empiric antibiotics in the form of Levaquin. He is seen today in consultation on the regular medical floor. He is currently sitting up at the bedside. Awake and alert in no acute distress. Maintaining good O2 saturations in the mid 90s on room air. He's afebrile. Hemodynamically stable. Still quite bronchospastic and wheezy however. Review of Systems REVIEW OF SYSTEMS: CONSTITUTIONAL: Denies any recent significant weight loss or weight gain. EYES: Denies change in vision. EARS, NOSE, MOUTH, THROAT: Denies headaches, denies sore throat. CARDIOVASCULAR: Denies chest pain, palpitations or syncopal episodes. RESPIRATORY: Positive for shortness of breath, cough, congestion no hemoptysis. GASTROINTESTINAL: Denies change in appetite, denies abdominal pain GENITOURINARY: Denies hematuria, denies infections. MUSKULOSKELETAL: Denies pain, denies swelling. INTEGUMENTARY: Denies rash, denies eczema. NEUROLOGICAL: Denies recent memory loss, no recent seizure activity. PSYCHIATRIC: Denies anxiety, denies depression. HEMATOLOGIC/LYMPHATIC: Denies anemia, denies enlarged lymph nodes. Past Medical History Past Medical History: Asthma, Diabetes Mellitus, Hyperlipidemia, Hypertension, Skin Disorder, Thyroid Disorder Additional Past Medical History / Comment(s): Other HX: Moderate persistant asthma, IDDM type I- insulin pump and subcutaneous diabetic sensor, hypothyroidism, vitiligo for 17 years, seasonal allergic rhinitis, right foot drop secondary to pelvic fracture History of Any Multi-Drug Resistant Organisms: None Reported Past Surgical History: Orthopedic Surgery Additional Past Surgical History / Comment(s): reconstruction of pelvis (Feb 2011), bilateral hands tendon release in fingers (2002), Arthoscopic in right knee (1996), steel rodrigo in great toe of right foot (1997), bilateral arthroscopic elbow surgery, left elbow radial nerve release. Past Anesthesia/Blood Transfusion Reactions: Postoperative Nausea & Vomiting (PONV) Additional Past Anesthesia/Blood Transfusion Reaction / Comment(s): Only after the tendon release in fingers Past Psychological History: No Psychological Hx Reported Additional Psychological History / Comment(s): Pt resides with his spouse. He is independent. He uses no assistive device. He drives. Smoking Status: Never smoker Past Alcohol Use History: None Reported Past Drug Use History: None Reported - Past Family History Father Family Medical History: Myocardial Infarction ([place]) Additional Family Medical History / Comment(s): had in 1972 Mother Family Medical History: Asthma, Cancer, Thyroid Disorder Additional Family Medical History / Comment(s): lung cancer (diagnosed when she was 79) Brother(s) Family Medical History: CVA/TIA, Neurologic Disorder Additional Family Medical History / Comment(s): parkinson's disease, subdural hematoma. Brother is . Sister(s) Family Medical History: No Reported History Daughter(s) Family Medical History: No Reported History Son(s) Family Medical History: No Reported History Medications and Allergies Home Medications Medication Instructions Recorded Confirmed Type Albuterol Sulfate [Proair Hfa] 2 puff INHALATION RT-Q6H PRN 12/16/13 11/24/20 History Atorvastatin Calcium [Lipitor] 40 mg PO HS 12/16/13 11/24/20 History Montelukast Sodium [Singulair] 10 mg PO HS 12/16/13 11/24/20 History Fluticasone/Vilanterol [Breo 1 puff INHALATION RT-DAILY 09/26/14 11/24/20 History Ellipta 100-25 Mcg Inhaler] traZODone HCL [Desyrel] 100 mg PO HS PRN 09/26/14 11/24/20 History Levalbuterol HCl [Xopenex 1.25 mg INHALATION RT-QID PRN #60 10/02/14 11/24/20 Rx Nebulized] ml Insulin Aspart (For Pump) [NovoLOG 0.01 unit SQ-PUMP CONTINUOUS 02/06/1711/24 History (For Pump)] Levothyroxine Sodium [Synthroid] 150 mcg PO DAILY 02/06/17 11/24/20 History Losartan [Cozaar] 25 mg PO DAILY 02/06/17 11/24/20 History Ascorbic Acid [Vitamin C] 500 mg PO DAILY 11/24/20 11/24/20 History Azithromycin [Zithromax Z-pack (6 See Taper PO DIRECTED 11/24/20 11/24/20 History tabs)] Cetirizine HCl [Zyrtec] 10 mg PO DAILY PRN 11/24/20 11/24/20 History Codeine Phosphate/Guaifenesin 5 ml PO Q6H PRN 11/24/20 11/24/20 History [Guaifen-Codeine 100-10 mg/5 ml] Famotidine [Pepcid] 20 mg PO BID PRN 11/24/20 11/24/20 History HYDROcodone/APAP 5-325MG [Codorus 1 tab PO TID PRN 11/24/20 11/24/20 History 5-325] predniSONE See Taper PO DIRECTED 11/24/20 11/24/20 History Allergies Allergy/AdvReac Type Severity Reaction Status Date / Time aspirin Allergy Unknown Rash/Hives Verified 11/24/20 20:31 Physical Exam Vitals: Vital Signs Temp Pulse Pulse Resp BP BP Pulse Ox 11/25/20 07:53 97.9 F 89 16 144/68 94 L 11/25/20 02:28 97.9 F 100 16 133/64 95 11/25/20 01:30 94 11/25/20 01:20 94 11/24/20 22:02 97.9 F 90 20 151/75 93 L 11/24/20 20:48 98.1 F 123 H 18 158/80 93 L 11/24/20 20:00 112 H 18 142/71 95 11/24/20 19:22 88 18 11/24/20 19:06 85 18 11/24/20 18:06 97.7 F 95 18 142/70 95 Intake and Output 11/24/20 11/25/20 11/25/20 22:59 06:59 14:59 Other: Weight 91.172 kg GENERAL EXAM: Alert, very pleasant 69-year-old gentleman, on room air, fairly comfortable in no apparent distress. HEAD: Normocephalic. EYES: Normal reaction of pupils, equal size. NOSE: Clear with pink turbinates. THROAT: No erythema or exudates. NECK: No masses, no JVD. CHEST: No chest wall deformity. LUNGS: Equal air entry with bilateral wheeze, diminished. CVS: S1 and S2 normal with no audible murmur, regular rhythm. ABDOMEN: No hepatosplenomegaly, normal bowel sounds, no guarding or rigidity. SPINE: No scoliosis or deformity SKIN: No rashes CENTRAL NERVOUS SYSTEM: No focal deficits, tone is normal in all 4 extremities. EXTREMITIES: There is no peripheral edema. No clubbing, no cyanosis. Peripheral pulses are intact. Results - Laboratory Findings CBC and BMP: 11/25/20 06:51 11/25/20 06:51 PT/INR, D-dimer PT 9.8 sec (9.0-12.0) 11/24/20 19:13 INR 0.9 (<1.2) 11/24/20 19:13 Abnormal lab findings: Abnormal Labs 11/24/20 11/24/20 11/24/20 19:13 19:13 19:16 WBC 17.3 H Neutrophils # 15.2 H Lymphocytes # 0.9 L BUN 31 H Glucose 163 H POC Glucose (mg/dL) 160 H 11/25/20 11/25/20 11/25/20 06:51 06:51 11:28 WBC 14.4 H Neutrophils # 13.6 H Lymphocytes # 0.5 L BUN 33 H Glucose 194 H POC Glucose (mg/dL) 245 H - Diagnostic Findings Chest x-ray: image reviewed (No acute pulmonary process) Assessment and Plan Assessment: 1 Acute exacerbation of moderate persistent chronic bronchial asthma, failed outpatient therapy 2 Diabetes mellitus, on insulin pump 3 Hypothyroidism 4 Hyperlipidemia 5 Gastroesophageal reflux disease 6 Hypertension Plan: The patient was seen and evaluated by Dr. Castle Chest x-ray and labs reviewed Still somewhat bronchospastic and wheezy Continue bronchodilators, IV Solu-Medrol, empiric antibiotics We will continue to follow and make further recommendations based on his clinical status I, the cosigning physician, performed a history & physical examination of the patient. Lungs sounds with bilateral end expiratory wheeze, diminished Maintaining good O2 saturations in the 90s on room air. I discussed the assessment and plan of care with my nurse practitioner, Elizabeth Dove. I attest to the above consultation as dictated by her. Time with Patient: Greater than 30
--- NOTE | 2020-11-25 14:53 | P.HPIM ---
History of Present Illness H&P Date: 11/25/20 HISTORY OF PRESENT ILLNESS This is a 69-year-old male patient of Dr. Marcano with past medical history of diabetes mellitus type 2 on insulin pump managed by Dr. Gallagher, moderate persistent asthma under the care of Dr. Mcdonald, hypertension, hyperlipidemia, hypothyroidism. Patient was last hospitalized in September of this year which time he presented with a left ankle bimalleolar fracture status post ORIF. The patient states that he was seen in the emergency center on November 15 which time he was seen for acute exacerbation of asthma placed on antibiotics and prednisone and cough medicine. He thought it was exacerbated by drywall dust as work was being done on his home. He has since followed up with his PCP and placed on antibiotics and steroids and has taken 2 doses. Yesterday he was having tightness in his chest with congestion, cough and shortness of breath. He states he has been utilizing his nebulizer 3 times daily and not getting any better. Chest x-ray showed no acute cardiopulmonary process. His been afebrile, heart rate 95, blood pressure initially 142/70, pulse ox 95% on room air. Blood work reveals WBC 17.3, hemoglobin 13.9, platelet count 307. Electrolytes normal. BUN 31 and creatinine 1.02. Blood sugar 163. Troponin negative. ProBNP 873. Liver f unction tests were normal. Magnesium 2.3. Patient admitted to the [facility] floor and pulmonary consult requested. REVIEW OF SYSTEMS Constitutional: No fever, no chills, no night sweats. No weight change. No weakness, fatigue or lethargy. No daytime sleepiness. EENT: No headache. No blurred vision or double vision, no loss of vision. No loss of Hearing, no ringing in the ears, no dizziness. No nasal drainage or congestion. No epistaxis. No sore throat. Lungs: Reports shortness of breath, reports cough, reports sputum production. Reports wheezing. Cardiovascular: No chest pain, no lower extremity edema. No palpitations. No paroxysmal nocturnal dyspnea. No orthopnea. No lightheadedness or dizziness. No syncopal episodes. Abdominal: No abdominal pain. No nausea, vomiting. No diarrhea. No constipation. No bloody or tarry stools.. No loss of appetite. Genitourinary: No dysuria, increased frequency, urgency. No urinary retention. Musculoskeletal: No myalgias. No muscle weakness, no gait dysfunction, no frequent falls. No back pain. No neck pain. Integumentary: No wounds, no lesions. No rash or pruritus. No unusual bruising. No change in hair or nails. Neurologic: No aphasia. No facial droop. No change in mentation. No head injury. No headache. No paralysis. No paresthesia. Psychiatric: No depression. No anxiety. No mood swings. Endocrine: Noted abnormal blood sugars. No weight change. SOCIAL HISTORY Patient is a lifelong nonsmoker. He denies any alcohol use or abuse. No marijuana or illicit drug use. 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 He lives at home with his .]. FAMILY HISTORY Mother at age 79 from lung cancer with history of smoking. Father at age 56 from a myocardial infarction with history of smoking. Patient has one brother and he has passed from Parkinson's. Patient has 2 sisters with no major medical problems. Patient has 3 children. One son has from a motor vehicle accident. One son and one daughter alive with no major medical problems.. PHYSICAL EXAMINATION Gen: This is a 69-year-old male. Patient is resting in bed and appears to be comfortable at rest. No acute distress is noted. No respiratory distress noted. HEENT: Head is atraumatic, normocephalic. Pupils equal, round. Sclerae is anicteric. NECK: Supple. No JVD. No lymphadenopathy. No thyromegaly. LUNGS: Scattered bilateral expiratory wheeze, diminished bilaterally. No intercostal retractions. HEART: Regular rate and rhythm. No murmur. ABDOMEN: Soft. Bowel sounds are present. No masses. No tenderness. EXTREMITIES: No pedal edema. No calf tenderness. Dorsalis pedis +2 bilaterally. Left ankle tenderness. NEUROLOGICAL: Patient is awake, alert and oriented x3. Cranial nerves 2 through 12 are grossly intact. ASSESSMENT AND PLAN 1. Acute exacerbation of moderate persistent asthma, failed outpatient treatment. Patient [facility] floor, pulmonary consult appreciated. Continue DuoNeb treatments 3 times daily and every 2 hours as needed, continue Levaquin 250 mg daily, Solu-Medrol 60 mg IV every 6 hours, Perforomist twice daily, Pulmicort 1 mg twice daily, Mucinex and Robitussin with codeine as needed, Singulair 10 mg at bedtime. 2. Diabetes mellitus type 2. Patient is on insulin pump. 3. Hypertension. Continue losartan 25 mg daily. 4. Hyperlipidemia. Continue atorvastatin 40 mg at bedtime. 5. Hypothyroidism. Continue levothyroxine 150 g daily. 6. Gastroesophageal reflux disease. Continue Pepcid 20 mg twice daily as needed. 7. Insomnia. Continue trazodone 100 mg at bedtime as needed.. 8. DVT prophylaxis. Heparen subcu. Patient will be admitted to the hospital for a minimum of 2 night stay. DISCHARGE PLAN Home. Impression and plan of care have been directed as dictated by the signing phys ician. Maria R Topete nurse practitioner acting as scribe for signing physician. Past Medical History Past Medical History: Asthma, Diabetes Mellitus, Hyperlipidemia, Hypertension, Skin Disorder, Thyroid Disorder Additional Past Medical History / Comment(s): Other HX: Moderate persistant asthma, IDDM type I- insulin pump and subcutaneous diabetic sensor, hypothyroidism, vitiligo for 17 years, seasonal allergic rhinitis, right foot drop secondary to pelvic fracture History of Any Multi-Drug Resistant Organisms: None Reported Past Surgical History: Orthopedic Surgery Additional Past Surgical History / Comment(s): reconstruction of pelvis (Feb 2011), bilateral hands tendon release in fingers (2002), Arthoscopic in right knee (1996), steel rodrigo in great toe of right foot (1997), bilateral arthroscopic elbow surgery, left elbow radial nerve release. Past Anesthesia/Blood Transfusion Reactions: Postoperative Nausea & Vomiting (P ONV) Additional Past Anesthesia/Blood Transfusion Reaction / Comment(s): Only after the tendon release in fingers Past Psychological History: No Psychological Hx Reported Additional Psychological History / Comment(s): Pt resides with his spouse. He is independent. He uses no assistive device. He drives. Smoking Status: Never smoker Past Alcohol Use History: None Reported Past Drug Use History: None Reported - Past Family History Father Family Medical History: Myocardial Infarction (ME) Additional Family Medical History / Comment(s): had in 1972 Mother Family Medical History: Asthma, Cancer, Thyroid Disorder Additional Family Medical History / Comment(s): lung cancer (diagnosed when she was 79) Brother(s) Family Medical History: CVA/TIA, Neurologic Disorder Additional Family Medical History / Comment(s): parkinson's disease, subdural hematoma. Brother is . Sister(s) Family Medical History: No Reported History Daughter(s) Family Medical History: No Reported History Son(s) Family Medical History: No Reported History Medications and Allergies Home Medications Medication Instructions Recorded Confirmed Type Albuterol Sulfate [Proair Hfa] 2 puff INHALATION RT-Q6H PRN 12/16/13 11/24/20 History Atorvastatin Calcium [Lipitor] 40 mg PO HS 12/16/13 11/24/20 History Montelukast Sodium [Singulair] 10 mg PO HS 12/16/13 11/24/20 History Fluticasone/Vilanterol [Breo 1 puff INHALATION RT-DAILY 09/26/14 11/24/20 History Ellipta 100-25 Mcg Inhaler] traZODone HCL [Desyrel] 100 mg PO HS PRN 09/26/14 11/24/20 History Levalbuterol HCl [Xopenex 1.25 mg INHALATION RT-QID PRN #60 10/02/14 11/24/20 Rx Nebulized] ml Insulin Aspart (For Pump) [NovoLOG 0.01 unit SQ-PUMP CONTINUOUS 02/06/17 11/24/20 History (For Pump)] Levothyroxine Sodium [Synthroid] 150 mcg PO DAILY 02/06/17 11/24/20 History Losartan [Cozaar] 25 mg PO DAILY 02/06/17 11/24/20 History Ascorbic Acid [Vitamin C] 500 mg PO DAILY 11/24/20 11/24/20 History Azithromycin [Zithromax Z-pack (6 See Taper PO DIRECTED 11/24/20 11/24/20 History tabs)] Cetirizine HCl [Zyrtec] 10 mg PO DAILY PRN 11/24/20 11/24/20 History Codeine Phosphate/Guaifenesin 5 ml PO Q6H PRN 11/24/20 11/24/20 History [Guaifen-Codeine 100-10 mg/5 ml] Famotidine [Pepcid] 20 mg PO BID PRN 11/24/20 11/24/20 History HYDROcodone/APAP 5-325MG [[place] 1 tab PO TID PRN 11/24/20 11/24/20 History 5-325] predniSONE See Taper PO DIRECTED 11/24/20 11/24/20 History Allergies Allergy/AdvReac Type Severity Reaction Status Date / Time aspirin Allergy Unknown Rash/Hives Verified 11/24/20 20:31 Physical Exam Vitals: Vital Signs Temp Pulse Pulse Resp BP BP Pulse Ox 11/25/20 07:53 97.9 F 89 16 144/68 94 L 11/25/20 02:28 97.9 F 100 16 133/64 95 11/25/20 01:30 94 11/25/20 01:20 94 11/24/20 22:02 97.9 F 90 20 151/75 93 L 11/24/20 20:48 98.1 F 123 H 18 158/80 93 L 11/24/20 20:00 112 H 18 142/71 95 11/24/20 19:22 88 18 11/24/20 19:06 85 18 11/24/20 18:06 97.7 F 95 18 142/70 95 Intake and Output 11/24/20 11/25/20 11/25/20 22:59 06:59 14:59 Other: Weight 91.172 kg Results CBC & Chem 7: 11/25/20 06:51 11/25/20 06:51 Labs: Abnormal Lab Results - Last 24 Hours (Table) 11/24/20 11/24/20 11/24/20 Range/Units 19:13 19:13 19:16 WBC 17.3 H (3.8-10.6) k/uL Neutrophils # 15.2 H (1.3-7.7) k/uL Lymphocytes # 0.9 L (1.0-4.8) k/uL BUN 31 H (9-20) mg/dL Glucose 163 H (74-99) mg/dL POC Glucose (mg/dL) 160 H (75-99) mg/dL 11/25/20 11/25/20 Range/Units 06:51 06:51 WBC 14.4 H (3.8-10.6) k/uL Neutrophils # 13.6 H (1.3-7.7) k/uL Lymphocytes # 0.5 L (1.0-4.8) k/uL BUN 33 H (9-20) mg/dL Glucose 194 H (74-99) mg/dL POC Glucose (mg/dL) (75-99) mg/dL Thrombosis Risk Factor Assmnt - Choose All That Apply Each Risk Factor Represents 2 Points: Age 61-74 years Thrombosis Risk Factor Assessment Total Risk Factor Score: 2 Thrombosis Risk Factor Assessment Level: Low Risk
[2020-11-25 16:45] LABS: Glucose,Whole Blood 143 mg/dL (75-99)
[2020-11-25 21:20] LABS: Glucose,Whole Blood 211 mg/dL (75-99)
[2020-11-25] MEDS: FORMOTEROL FUMARATE 20 MCG/2 ML NEBU INHALATION SCH (21:29)
[2020-11-25] MEDS: IPRATROPIUM-ALBUTEROL 3 ML NEB INHALATION SCH (21:29)
[2020-11-25] MEDS: BUDESONIDE 1 MG/2 ML NEBU INHALATION SCH (21:29)
[2020-11-25] MEDS: MONTELUKAST 10 MG TAB PO SCH (21:41)
[2020-11-25] MEDS: HEPARIN SODIUM,PORCINE/PF 5,000 UNIT/0.5 ML SYRINGE SQ SCH (21:41)
[2020-11-25] MEDS: ATORVASTATIN 40 MG TAB PO SCH (21:41)
[2020-11-25] MEDS: LEVOFLOXACIN 250 MG TAB PO SCH (21:41)
[2020-11-26] MEDS: methylPREDNISolone SOD SUCCI 125 MG/2 ML VIAL IV SCH ×4 (00:28→17:16)
[2020-11-26] MEDS: guaiFENesin-Coden 100-10MG/5ML 10 ML CUP PO PRN (00:28)
[2020-11-26] MEDS: LEVOTHYROXINE 75 MCG TAB PO SCH (06:15)
[2020-11-26 07:15] LABS: Glucose,Whole Blood 155 mg/dL (75-99)
[2020-11-26] MEDS: HEPARIN SODIUM,PORCINE/PF 5,000 UNIT/0.5 ML SYRINGE SQ SCH ×2 (07:49→21:27)
[2020-11-26] MEDS: guaiFENesin 600 MG TABLET.ER PO SCH (07:49)
[2020-11-26] MEDS: LOSARTAN 25 MG TAB PO SCH (07:50)
[2020-11-26] MEDS: INSULIN PUMP MEAL BOLUS 1 UNIT MISC MISCELLANE SCH ×4 (07:50→22:09)
[2020-11-26] MEDS: IPRATROPIUM-ALBUTEROL 3 ML NEB INHALATION SCH ×3 (08:10→19:14)
[2020-11-26] MEDS: BUDESONIDE 1 MG/2 ML NEBU INHALATION SCH ×2 (08:10→19:14)
[2020-11-26] MEDS: FORMOTEROL FUMARATE 20 MCG/2 ML NEBU INHALATION SCH ×2 (08:10→19:14)
[2020-11-26 11:24] LABS: Glucose,Whole Blood 249 mg/dL (75-99)
--- NOTE | 2020-11-26 11:50 | P.PN ---
Subjective Progress Note Date: 11/26/20 Principal diagnosis: Acute exacerbation of moderate persistent chronic bronchial asthma This is a very pleasant 69-year-old gentleman who has a history of diabetes mellitus maintained on an insulin pump, hyperlipidemia, hypothyroidism, gastroesophageal reflux disease. He also has a history of moderate to severe persistent chronic bronchial asthma. He follows with Dr. Mcdonald in our office for the same. He is maintained on Breo, pro-air, nebulized treatments, Singulair. He presented here to the emergency room on 11/15/2020 after being exposed to new drywall and drywall dust and his home. He was given updraft treatments IV Solu-Medrol improved and discharged home. He had been treated with antibiotics and steroids again this week by his PCP Dr. Marcano. Yesterday however he was having worsening shortness of breath chest tightness and wheezing and presented to the emergency room for the same. Chest x-ray reveals no acute pulmonary process. White count 14.4. Hemoglobin 13.7. Platelets 301. Sodium 137. Potassium 4.5. Creatinine 1.00. Glucose 194. He's been initiated on DuoNeb inhalations, Pulmicort and Perforomist inhalations, IV Solu-Medrol. Empiric antibiotics in the form of Levaquin. He is seen today in consultation on the regular medical floor. He is currently sitting up at the bedside. Awake and alert in no acute distress. Maintaining good O2 saturations in the mid 90s on room air. He's afebrile. Hemodynamically stable. Still quite broncho spastic and wheezy however. On 11/26/2020 patient seen in follow-up on medical surgical floor. He is ambulating in the room, tolerating activity well, he is on room air, with a pulse ox of 95-96%, afebrile, hemodynamically stable, sounds less congested in bronchospastic on today's exam, he is feeling better, breathing easier, there is equal air entry noted bilaterally, still coughing, denies any chest discomfort, still feels like he can't take a full breath, although admits that his breathing is improved since admission. He continues on nebulized bronchodilators, IV steroids, cough medicine, and Levaquin. Sputum culture has been sent, pending at this time, blood cultures have shown no growth thus far. Objective - Vital Signs Vital signs: Vital Signs Temp 98.3 F 11/26/20 07:45 Pulse 71 11/26/20 08:28 Resp 18 11/26/20 07:45 BP 128/75 11/26/20 07:45 Pulse Ox 95 11/26/20 07:45 Intake & Output 11/25/20 11/26/20 11/26/20 18:59 06:59 18:59 Intake Total 1080 Balance 1080 Intake: Oral 1080 Other: Voiding Method Toilet # Voids 3 - Exam GENERAL EXAM: Alert, very pleasant, 69-year-old white male, on room air with a pulse ox of 95-96% comfortable in no apparent distress. HEAD: Normocephalic/atraumatic. EYES: Normal reaction of pupils, equal size. Conjunctiva pink, sclera white. NOSE: Clear with pink turbinates. THROAT: No erythema or exudates. NECK: No masses, no JVD, no thyroid enlargement, no adenopathy. CHEST: No chest wall deformity. Symmetrical expansion. LUNGS: Equal air entry with diffuse wheezes CVS: Regular rate and rhythm, normal S1 and S2, no gallops, no murmurs, no rubs ABDOMEN: Soft, nontender. No hepatosplenomegaly, normal bowel sounds, no guarding or rigidity. EXTREMITIES: No clubbing, no edema, no cyanosis, 2+ pulses and upper and lower extremities. MUSCULOSKELETAL: Muscle strength and tone normal. SPINE: No scoliosis or deformity SKIN: No rashes CENTRAL NERVOUS SYSTEM: Alert and oriented -3. No focal deficits, tone is normal in all 4 extremities. PSYCHIATRIC: Alert and oriented -3. Appropriate affect. Intact judgment and insight. - Labs CBC & Chem 7: 11/25/20 06:51 11/25/20 06:51 Labs: Abnormal Lab Results - Last 24 Hours (Table) 11/25/20 11/25/20 11/25/20 Range/Units 06:51 16:43 21:19 POC Glucose (mg/dL) 143 H 211 H (75-99) mg/dL Procalcitonin 0.14 H (0.02-0.09) ng/mL 11/26/20 11/26/20 Range/Units 07:13 11:23 POC Glucose (mg/dL) 155 H 249 H (75-99) mg/dL Procalcitonin (0.02-0.09) ng/mL Microbiology - Last 24 Hours (Table) 11/26/20 00:49 Sputum Culture - Preliminary Sputum 11/24/20 19:05 Blood Culture - Preliminary Blood No Growth after 24 hours 11/24/20 18:59 Blood Culture - Preliminary Blood No Growth after 24 hours Assessment and Plan Plan: Assessment: 1 Acute exacerbation of moderate persistent chronic bronchial asthma, failed outpatient therapy 2 Diabetes mellitus, on insulin pump 3 Hypothyroidism 4 Hyperlipidemia 5 Gastroesophageal reflux disease 6 Hypertension Plan: Continue current inpatient treatment Continue steroids Bronchodilators Continue antibiotics Vital signs are stable Still dyspneic on bronchospastic, but improving If continues to improve and remains stable may consider discharge home in the next 48 hours I performed a history & physical examination of the patient and discussed their management with my nurse practitioner, Cheryl Tony. I reviewed the nurse practitioner's note and agree with the documented findings and plan of care. Lung sounds are positive for diffuse wheezes throughout the lung escobedo. The findings and the impression was discussed with the patient. I attest to the documentation by the nurse practitioner. Time with Patient: Less than 30
--- NOTE | 2020-11-26 12:47 | P.PN ---
Subjective Progress Note Date: 11/26/20 HISTORY OF PRESENT ILLNESS This is a 69-year-old male patient of Dr. Marcano with past medical history of diabetes mellitus type 2 on insulin pump managed by Dr. Gallagher, moderate persistent asthma under the care of Dr. Mcdonald, hypertension, hyperlipidemia, hypothyroidism. Patient was last hospitalized in September of this year which time he presented with a left ankle bimalleolar fracture status post ORIF. The patient states that he was seen in the emergency center on November 15 which time he was seen for acute exacerbation of asthma placed on antibiotics and prednisone and cough medicine. He thought it was exacerbated by drywall dust as work was being done on his home. He has since followed up with his PCP and placed on antibiotics and steroids and has taken 2 doses. Yesterday he was having tightness in his chest with congestion, cough and shortness of breath. He states he has been utilizing his nebulizer 3 times daily and not getting any better. Chest x-ray showed no acute cardiopulmonary process. His been afebrile, heart rate 95, blood pressure initially 142/70, pulse ox 95% on room air. Blood work reveals WBC 17.3, hemoglobin 13.9, platelet count 307. Electrolytes normal. BUN 31 and creatinine 1.02. Blood sugar 163. Troponin negative. ProBNP 873. Liver function tests were normal. Magnesium 2.3. [facility] floor and pulmonary consult requested. 11/26: Patient continues to have wheezing, deep breathing causes him to cough. He is utilizing incentive spirometry and is making improvements. He remains on Solu-Medrol 60 mg IV every 6 hours and this will be continued. IV changed to saline lock. Patient has been afebrile, heart rate between 68 and 90, blood pressure 128/75, pulse ox 95% on room air. Blood sugars running between 143 and 211. Patient is on his insulin pump. Patient is followed by pulmonary medicine. REVIEW OF SYSTEMS Constitutional: No fever, no chills, no night sweats. No weight change. No weakness, fatigue or lethargy. No daytime sleepiness. EENT: No headache. No blurred vision or double vision, no loss of vision. No loss of Hearing, no ringing in the ears, no dizziness. No nasal drainage or congestion. No epistaxis. No sore throat. Lungs: Reports shortness of breath, reports cough, reports sputum production. Reports wheezing, continues. Cardiovascular: No chest pain, no lower extremity edema. No palpitations. No paroxysmal nocturnal dyspnea. No orthopnea. No lightheadedness or dizziness. No syncopal episodes. Abdominal: No abdominal pain. No nausea, vomiting. No diarrhea. No constipation. No bloody or tarry stools.. No loss of appetite. Genitourinary: No dysuria, increased frequency, urgency. No urinary retention. Musculoskeletal: No myalgias. No muscle weakness, no gait dysfunction, no frequent falls. No back pain. No neck pain. Integumentary: No wounds, no lesions. No rash or pruritus. No unusual bruising. No change in hair or nails. Neurologic: No aphasia. No facial droop. No change in mentation. No head injury. No headache. No paralysis. No paresthesia. Psychiatric: No depression. No anxiety. No mood swings. Endocrine: Noted abnormal blood sugars. No weight change. PHYSICAL EXAMINATION Gen: This is a 69-year-old male. Patient is resting in bed and appears to be comfortable at rest. No acute distress is noted. No respiratory distress noted. HEENT: Head is atraumatic, normocephalic. Pupils equal, round. Sclerae is anicteric. NECK: Supple. No JVD. No lymphadenopathy. No thyromegaly. LUNGS: Scattered bilateral expiratory wheeze, diminished bilaterally. No intercostal retractions. HEART: Regular rate and rhythm. No murmur. ABDOMEN: Soft. Bowel sounds are present. No masses. No tenderness. EXTREMITIES: No pedal edema. No calf tenderness. Dorsalis pedis +2 bilaterally. NEUROLOGICAL: Patient is awake, alert and oriented x3. Cranial nerves 2 through 12 are grossly intact. ASSESSMENT AND PLAN 1. Acute exacerbation of moderate persistent asthma, failed outpatient treatment. Patient admitted to the [facility] floor, pulmonary consult appreciated. Continue DuoNeb treatments 3 times daily and every 2 hours as needed, continue Levaquin 250 mg daily, Solu-Medrol 60 mg IV every 6 hours, Perforomist twice daily, Pulmicort 1 mg twice daily, Mucinex and Robitussin with codeine as needed, Singulair 10 mg at bedtime. 2. Diabetes mellitus type 2. Patient is on insulin pump. 3. Hypertension. Continue losartan 25 mg daily. 4. Hyperlipidemia. Continue atorvastatin 40 mg at bedtime. 5. Hypothyroidism. Continue levothyroxine 150 g daily. 6. Gastroesophageal reflux disease. Continue Pepcid 20 mg twice daily as needed. 7. Insomnia. Continue trazodone 100 mg at bedtime as needed.. 8. DVT prophylaxis. Heparen subcu. DISCHARGE PLAN Home. Impression and plan of care have been directed as dictated by the signing physician. Maria R Topete nurse practitioner acting as scribe for signing physician. Objective - Vital Signs Vital signs: Vital Signs Temp 98.3 F 11/26/20 07:45 Pulse 71 11/26/20 08:28 Resp 18 11/26/20 07:45 BP 128/75 11/26/20 07:45 Pulse Ox 95 11/26/20 07:45 Intake & Output 11/25/20 11/26/20 11/26/20 18:59 06:59 18:59 Intake Total 1080 Balance 1080 Intake: Oral 1080 Other: Voiding Method Toilet # Voids 3 - Labs CBC & Chem 7: 11/25/20 06:51 11/25/20 06:51 Labs: Abnormal Lab Results - Last 24 Hours (Table) 11/25/20 11/25/20 11/25/20 Range/Units 06:51 11:28 16:43 POC Glucose (mg/dL) 245 H 143 H (75-99) mg/dL Procalcitonin 0.14 H (0.02-0.09) ng/mL 11/25/20 11/26/20 Range/Units 21:19 07:13 POC Glucose (mg/dL) 211 H 155 H (75-99) mg/dL Procalcitonin (0.02-0.09) ng/mL Microbiology - Last 24 Hours (Table) 11/26/20 00:49 Sputum Culture - Preliminary Sputum 11/24/20 19:05 Blood Culture - Preliminary Blood No Growth after 24 hours 11/24/20 18:59 Blood Culture - Preliminary Blood No Growth after 24 hours
[2020-11-26 16:35] LABS: Glucose,Whole Blood 147 mg/dL (75-99)
[2020-11-26 20:41] LABS: Glucose,Whole Blood 191 mg/dL (75-99)
[2020-11-26] MEDS: ATORVASTATIN 40 MG TAB PO SCH (21:28)
[2020-11-26] MEDS: MONTELUKAST 10 MG TAB PO SCH (21:28)
[2020-11-27] MEDS: LEVOFLOXACIN 250 MG TAB PO SCH (00:28)
[2020-11-27] MEDS: methylPREDNISolone SOD SUCCI 125 MG/2 ML VIAL IV SCH ×4 (00:28→17:10)
[2020-11-27] MEDS: LEVOTHYROXINE 75 MCG TAB PO SCH (05:46)
[2020-11-27 07:05] LABS: Glucose,Whole Blood 80 mg/dL (75-99)
[2020-11-27] MEDS: INSULIN PUMP MEAL BOLUS 1 UNIT MISC MISCELLANE SCH ×4 (07:20→20:32)
[2020-11-27] MEDS: LOSARTAN 25 MG TAB PO SCH (07:55)
[2020-11-27] MEDS: guaiFENesin 600 MG TABLET.ER PO SCH (07:55)
[2020-11-27] MEDS: HEPARIN SODIUM,PORCINE/PF 5,000 UNIT/0.5 ML SYRINGE SQ SCH ×2 (07:56→20:46)
[2020-11-27] MEDS: BUDESONIDE 1 MG/2 ML NEBU INHALATION SCH ×2 (08:28→19:46)
[2020-11-27] MEDS: FORMOTEROL FUMARATE 20 MCG/2 ML NEBU INHALATION SCH ×2 (08:28→19:46)
[2020-11-27] MEDS: IPRATROPIUM-ALBUTEROL 3 ML NEB INHALATION SCH ×3 (08:29→19:46)
[2020-11-27 11:44] LABS: Glucose,Whole Blood 106 mg/dL (75-99)
[2020-11-27] MEDS: guaiFENesin-Coden 100-10MG/5ML 10 ML CUP PO PRN ×2 (11:52→17:15)
--- NOTE | 2020-11-27 12:57 | P.PN ---
Subjective Progress Note Date: 11/27/20 This is a very pleasant 69-year-old gentleman who has a history of diabetes mellitus maintained on an insulin pump, hyperlipidemia, hypothyroidism, gastroesophageal reflux disease. He also has a history of moderate to severe persistent chronic bronchial asthma. He follows with Dr. Mcdonald in our office fo r the same. He is maintained on Breo, pro-air, nebulized treatments, Singulair. He presented here to the emergency room on 11/15/2020 after being exposed to new drywall and drywall dust and his home. He was given updraft treatments IV Solu-Medrol improved and discharged home. He had been treated with antibiotics and steroids again this week by his PCP Dr. Marcano. Yesterday however he was having worsening shortness of breath chest tightness and wheezing and presented to the emergency room for the same. Chest x-ray reveals no acute pulmonary process. White count 14.4. Hemoglobin 13.7. Platelets 301. Sodium 137. Potassium 4.5. Creatinine 1.00. Glucose 194. He's been initiated on DuoNeb inhalations, Pulmicort and Perforomist inhalations, IV Solu-Medrol. Empiric antibiotics in the form of Levaquin. He is seen today in consultation on the regular medical floor. He is currently sitting up at the bedside. Awake and alert in no acute distress. Maintaining good O2 saturations in the mid 90s on room air. He's afebrile. Hemodynamically stable. Still quite bronchospastic and wheezy however. On 11/26/2020 patient seen in follow-up on medical surgical floor. He is ambulating in the room, tolerating activity well, he is on room air, with a pulse ox of 95-96%, afebrile, hemodynamically stable, sounds less congested in bronchospastic on today's exam, he is feeling better, breathing easier, there is equal air entry noted bilaterally, still coughing, denies any chest discomfort, still feels like he can't take a full breath, although admits that his breathing is improved since admission. He continues on nebulized bronchodilators, IV steroids, cough medicine, and Levaquin. Sputum culture has been sent, pending at this time, blood cultures have shown no growth thus far. The patient is seen today 11/27/2020 in follow-up on the regular medical floor. He is currently up ambulating in his room. Awake and alert in no acute distress. Maintaining good O2 saturations in the 90s on room air. He is doing better as far as his breathing is concerned. Still not quite back to his baseline. Still with some bronchospasm and wheezing. Loose cough. Blood and urine cultures reveal no growth to date. Remains on DuoNeb inhalations, Pulmicort and Perforomist inhalations, IV Solu-Medrol, Singulair. Antibiotics in the form of Levaquin. Objective - Vital Signs Vital signs: Vital Signs Temp 98.6 F 11/27/20 08:00 Pulse 92 11/27/20 12:02 Resp 18 11/27/20 12:02 BP 157/65 11/27/20 08:00 Pulse Ox 95 11/27/20 08:29 Intake & Output 11/26/20 11/27/20 11/27/20 18:59 06:59 18:59 Other: Voiding Method Toilet # Voids 3 2 - Exam GENERAL EXAM: Alert, active, very pleasant 69-year-old gentleman, on room air, comfortable in no apparent distress. HEAD: Normocephalic. EYES: Normal reaction of pupils, equal size. NOSE: Clear with pink turbinates. THROAT: No erythema or exudates. NECK: No masses, no JVD. CHEST: No chest wall deformity. LUNGS: Equal air entry with bilateral end expiratory wheeze, diminished. CVS: S1 and S2 normal with no audible murmur, regular rhythm. ABDOMEN: No hepatosplenomegaly, normal bowel sounds, no guarding or rigidity. SPINE: No scoliosis or deformity SKIN: No rashes CENTRAL NERVOUS SYSTEM: No focal deficits, tone is normal in all 4 extremities. EXTREMITIES: There is no peripheral edema. No clubbing, no cyanosis. Peripheral pulses are intact. - Labs CBC & Chem 7: 11/25/20 06:51 11/25/20 06:51 Labs: Abnormal Lab Results - Last 24 Hours (Table) 11/26/20 11/26/20 11/27/20 Range/Units 16:33 20:39 11:43 POC Glucose (mg/dL) 147 H 191 H 106 H (75-99) mg/dL Microbiology - Last 24 Hours (Table) 11/26/20 00:49 Gram Stain - Preliminary Sputum Sputum Culture - Preliminary 11/24/20 19:05 Blood Culture - Preliminary Blood No Growth after 48 hours 11/24/20 18:59 Blood Culture - Preliminary Blood No Growth after 48 hours Assessment and Plan Assessment: 1 Acute exacerbation of moderate persistent chronic bronchial asthma, failed outpatient therapy 2 Diabetes mellitus, on insulin pump 3 Hypothyroidism 4 Hyperlipidemia 5 Gastroesophageal reflux disease 6 Hypertension Plan: The patient was seen and evaluated by Dr. Castle Improved but not back to his baseline Continue bronchodilators, IV Solu-Medrol, empiric antibiotics Probable discharge in the a.m. We will continue to follow I, the cosigning physician, performed a history & physical examination of the patient. Lungs sounds with bilateral end expiratory wheeze, diminished Maintaining good O2 saturations in the 90s on room air. I discussed the assessment and plan of care with my nurse practitioner, Elizabeth Dove. I attest to the above consultation as dictated by her.
[2020-11-27 16:54] LABS: Glucose,Whole Blood 168 mg/dL (75-99)
[2020-11-27 20:05] LABS: Glucose,Whole Blood 167 mg/dL (75-99)
[2020-11-27] MEDS: MONTELUKAST 10 MG TAB PO SCH (20:46)
[2020-11-27] MEDS: ATORVASTATIN 40 MG TAB PO SCH (20:46)
[2020-11-28] MEDS: LEVOFLOXACIN 250 MG TAB PO SCH (01:02)
[2020-11-28] MEDS: methylPREDNISolone SOD SUCCI 125 MG/2 ML VIAL IV SCH ×2 (01:02→06:06)
[2020-11-28] MEDS: guaiFENesin-Coden 100-10MG/5ML 10 ML CUP PO PRN (01:02)
[2020-11-28] MEDS: LEVOTHYROXINE 75 MCG TAB PO SCH (06:05)
[2020-11-28 06:56] LABS: Glucose,Whole Blood 145 mg/dL (75-99)
[2020-11-28] MEDS: FORMOTEROL FUMARATE 20 MCG/2 ML NEBU INHALATION SCH (07:17)
[2020-11-28] MEDS: IPRATROPIUM-ALBUTEROL 3 ML NEB INHALATION SCH ×2 (07:17→11:48)
[2020-11-28] MEDS: BUDESONIDE 1 MG/2 ML NEBU INHALATION SCH (07:17)
[2020-11-28 07:40] VITALS: BP 157/65; PULSE 68; RESP 19; TEMP 97.9
[2020-11-28] MEDS: INSULIN PUMP MEAL BOLUS 1 UNIT MISC MISCELLANE SCH (07:47)
[2020-11-28] MEDS: guaiFENesin 600 MG TABLET.ER PO SCH (07:50)
[2020-11-28] MEDS: HEPARIN SODIUM,PORCINE/PF 5,000 UNIT/0.5 ML SYRINGE SQ SCH (07:50)
[2020-11-28] MEDS: LOSARTAN 25 MG TAB PO SCH (07:50)
[2020-11-28 11:42] LABS: Glucose,Whole Blood 148 mg/dL (75-99)
--- NOTE | 2020-11-28 11:45 | P.PN ---
Subjective Progress Note Date: 11/28/20 This is a very pleasant 69-year-old gentleman who has a history of diabetes mellitus maintained on an insulin pump, hyperlipidemia, hypothyroidism, gastroesophageal reflux disease. He also has a history of moderate to severe persistent chronic bronchial asthma. He follows with Dr. Mcdonald in our office fo r the same. He is maintained on Breo, pro-air, nebulized treatments, Singulair. He presented here to the emergency room on 11/15/2020 after being exposed to new drywall and drywall dust and his home. He was given updraft treatments IV Solu-Medrol improved and discharged home. He had been treated with antibiotics and steroids again this week by his PCP Dr. Marcano. Yesterday however he was having worsening shortness of breath chest tightness and wheezing and presented to the emergency room for the same. Chest x-ray reveals no acute pulmonary process. White count 14.4. Hemoglobin 13.7. Platelets 301. Sodium 137. Potassium 4.5. Creatinine 1.00. Glucose 194. He's been initiated on DuoNeb inhalations, Pulmicort and Perforomist inhalations, IV Solu-Medrol. Empiric antibiotics in the form of Levaquin. He is seen today in consultation on the regular medical floor. He is currently sitting up at the bedside. Awake and alert in no acute distress. Maintaining good O2 saturations in the mid 90s on room air. He's afebrile. Hemodynamically stable. Still quite bronchospastic and wheezy however. On 11/26/2020 patient seen in follow-up on medical surgical floor. He is ambulating in the room, tolerating activity well, he is on room air, with a pulse ox of 95-96%, afebrile, hemodynamically stable, sounds less congested in bronchospastic on today's exam, he is feeling better, breathing easier, there is equal air entry noted bilaterally, still coughing, denies any chest discomfort, still feels like he can't take a full breath, although admits that his breathing is improved since admission. He continues on nebulized bronchodilators, IV steroids, cough medicine, and Levaquin. Sputum culture has been sent, pending at this time, blood cultures have shown no growth thus far. The patient is seen today 11/27/2020 in follow-up on the regular medical floor. He is currently up ambulating in his room. Awake and alert in no acute distress. Maintaining good O2 saturations in the 90s on room air. He is doing better as far as his breathing is concerned. Still not quite back to his baseline. Still with some bronchospasm and wheezing. Loose cough. Blood and urine cultures reveal no growth to date. Remains on DuoNeb inhalations, Pulmicort and Perforomist inhalations, IV Solu-Medrol, Singulair. Antibiotics in the form of Levaquin. Patient is seen today 11/28/2020 in follow-up on the regular medical floor. Awake and alert in no acute distress. Doing quite a bit better today. Less bronchospastic and wheezy. Maintaining good O2 saturations in the 90s on room a ir. Blood culture revealed no growth. Sputum culture revealed no growth. Glucose 148. Remains on DuoNeb inhalations, Pulmicort and Perforomist inhalations, IV Solu-Medrol, Singulair. Antibiotics in the form of Levaquin. Objective - Vital Signs Vital signs: Vital Signs Temp 97.9 F 11/28/20 07:38 Pulse 68 11/28/20 07:38 Resp 19 11/28/20 07:38 BP 157/65 11/28/20 07:38 Pulse Ox 94 L 11/28/20 07:38 Intake & Output 11/27/20 11/28/20 11/28/20 18:59 06:59 18:59 Other: Voiding Method Toilet Toilet # Voids 6 3 - Exam GENERAL EXAM: Alert, active, very pleasant 69-year-old gentleman, on room air, comfortable in no apparent distress. HEAD: Normocephalic. EYES: Normal reaction of pupils, equal size. NOSE: Clear with pink turbinates. THROAT: No erythema or exudates. NECK: No masses, no JVD. CHEST: No chest wall deformity. LUNGS: Equal air entry with bilateral end expiratory wheeze, diminished. CVS: S1 and S2 normal with no audible murmur, regular rhythm. ABDOMEN: No hepatosplenomegaly, normal bowel sounds, no guarding or rigidity. SPINE: No scoliosis or deformity SKIN: No rashes CENTRAL NERVOUS SYSTEM: No focal deficits, tone is normal in all 4 extremities. EXTREMITIES: There is no peripheral edema. No clubbing, no cyanosis. Peripheral pulses are intact. - Labs CBC & Chem 7: 11/25/20 06:51 11/25/20 06:51 Labs: Abnormal Lab Results - Last 24 Hours (Table) 11/27/20 11/27/20 11/27/20 Range/Units 11:43 16:52 20:03 POC Glucose (mg/dL) 106 H 168 H 167 H (75-99) mg/dL 11/28/20 Range/Units 06:55 POC Glucose (mg/dL) 145 H (75-99) mg/dL Microbiology - Last 24 Hours (Table) 11/26/20 00:49 Gram Stain - Final Sputum Sputum Culture - Final 11/24/20 19:05 Blood Culture - Preliminary Blood No Growth after 72 hours 11/24/20 18:59 Blood Culture - Preliminary Blood No Growth after 72 hours Assessment and Plan Assessment: 1 Acute exacerbation of moderate persistent chronic bronchial asthma, failed outpatient therapy 2 Diabetes mellitus, on insulin pump 3 Hypothyroidism 4 Hyperlipidemia 5 Gastroesophageal reflux disease 6 Hypertension Plan: The patient was seen and evaluated by Dr. Castle Cleared for discharge from the pulmonary standpoint Complete a course of antibiotics Complete a prednisone taper starting at 40 mg daily for 4 days tomorrow Continue his home pulmonary medications Follow-up in our office in 1 week He is encouraged to call sooner with any recurrence of symptoms or other questions or concerns I, the cosigning physician, performed a history & physical examination of the patient. Lungs sounds with bilateral end expiratory wheeze, diminished Maintaining good O2 saturations in the 90s on room air. I discussed the assessment and plan of care with my nurse practitioner, Elizabeth Dove. I attest to the above note as dictated by her.
[2020-11-28] MEDS ORDERED: guaiFENesin-Coden 100-10MG/5ML 10 ML CUP PO PRN (12:15)
--- NOTE | 2020-11-28 12:45 | P.PN ---
Subjective Progress Note Date: 11/27/20 HISTORY OF PRESENT ILLNESS This is a 69-year-old male patient of Dr. Marcano with past medical history of diabetes mellitus type 2 on insulin pump managed by Dr. Gallagher, moderate persistent asthma under the care of Dr. Mcdonald, hypertension, hyperlipidemia, hypothyroidism. Patient was last hospitalized in September of this year which time he presented with a left ankle bimalleolar fracture status post ORIF. The patient states that he was seen in the emergency center on November 15 which time he was seen for acute exacerbation of asthma placed on antibiotics and prednisone and cough medicine. He thought it was exacerbated by drywall dust as work was being done on his home. He has since followed up with his PCP and placed on antibiotics and steroids and has taken 2 doses. Yesterday he was having tightness in his chest with congestion, cough and shortness of breath. He states he has been utilizing his nebulizer 3 times daily and not getting any better. Chest x-ray showed no acute cardiopulmonary process. His been afebrile, heart rate 95, blood pressure initially 142/70, pulse ox 95% on room air. Blood work reveals WBC 17.3, hemoglobin 13.9, platelet count 307. Electrolytes normal. BUN 31 and creatinine 1.02. Blood sugar 163. Troponin negative. ProBNP 873. Liver function tests were normal. Magnesium 2.3. [facility] and pulmonary consult requested. 11/26: Patient continues to have wheezing, deep breathing causes him to cough. He is utilizing incentive spirometry and is making improvements. He remains on Solu-Medrol 60 mg IV every 6 hours and this will be continued. IV changed to saline lock. Patient has been afebrile, heart rate between 68 and 90, blood pressure 128/75, pulse ox 95% on room air. Blood sugars running between 143 and 211. Patient is on his insulin pump. Patient is followed by pulmonary medicine. 11/27: Patient continues to have wheezing but not as tight as yesterday. He denies having any nausea, vomiting, abdominal pain or diarrhea. He has been continued on IV Solu-Medrol, nebulizer treatments, Mucinex and Levaquin. Blood sugars are running between 80 and 167. Patient has remained afebrile, heart ra te 94, pulse ox 95% on room air. Blood pressure 157/65. Patient is followed closely by pulmonary medicine. Anticipate possible discharge home tomorrow. REVIEW OF SYSTEMS Constitutional: No fever, no chills, no night sweats. No weight change. No weakness, fatigue or lethargy. No daytime sleepiness. EENT: No headache. No blurred vision or double vision, no loss of vision. No loss of Hearing, no ringing in the ears, no dizziness. No nasal drainage or congestion. No epistaxis. No sore throat. Lungs: Reports shortness of breath, reports cough, reports sputum production. Reports wheezing, slowly improving. Cardiovascular: No chest pain, no lower extremity edema. No palpitations. No paroxysmal nocturnal dyspnea. No orthopnea. No lightheadedness or dizziness. No syncopal episodes. Abdominal: No abdominal pain. No nausea, vomiting. No diarrhea. No con stipation. No bloody or tarry stools.. No loss of appetite. Genitourinary: No dysuria, increased frequency, urgency. No urinary retention. Musculoskeletal: No myalgias. No muscle weakness, no gait dysfunction, no frequent falls. No back pain. No neck pain. Integumentary: No wounds, no lesions. No rash or pruritus. No unusual bruising. No change in hair or nails. Neurologic: No aphasia. No facial droop. No change in mentation. No head injury. No headache. No paralysis. No paresthesia. Psychiatric: No depression. No anxiety. No mood swings. Endocrine: Noted abnormal blood sugars. No weight change. PHYSICAL EXAMINATION Gen: This is a 69-year-old male. Patient is resting in bed and appears to be comfortable at rest. No acute distress is noted. No respiratory distress noted. HEENT: Head is atraumatic, normocephalic. Pupils equal, round. Sclerae is anicteric. NECK: Supple. No JVD. No lymphadenopathy. No thyromegaly. LUNGS: Scattered bilateral expiratory wheeze, diminished bilaterally. No intercostal retractions. HEART: Regular rate and rhythm. No murmur. ABDOMEN: Soft. Bowel sounds are present. No masses. No tenderness. EXTREMITIES: No pedal edema. No calf tenderness. Dorsalis pedis +2 bilaterally. NEUROLOGICAL: Patient is awake, alert and oriented x3. Cranial nerves 2 through 12 are grossly intact. ASSESSMENT AND PLAN 1. Acute exacerbation of moderate persistent asthma, failed outpatient treatm ent. Patient admitted to the [facility] floor, pulmonary consult appreciated. Continue DuoNeb treatments 3 times daily and every 2 hours as needed, continue Levaquin 250 mg daily, Solu-Medrol 60 mg IV every 6 hours, Perforomist twice daily, Pulmicort 1 mg twice daily, Mucinex and Robitussin with codeine as needed, Singulair 10 mg at bedtime. 2. Diabetes mellitus type 2. Patient is on insulin pump. 3. Hypertension. Continue losartan 25 mg daily. 4. Hyperlipidemia. Continue atorvastatin 40 mg at bedtime. 5. Hypothyroidism. Continue levothyroxine 150 g daily. 6. Gastroesophageal reflux disease. Continue Pepcid 20 mg twice daily as needed. 7. Insomnia. Continue trazodone 100 mg at bedtime as needed.. 8. DVT prophylaxis. Heparen subcu. DISCHARGE PLAN Home. Impression and plan of care have been directed as dictated by the signing physician. Maria R Topete nurse practitioner acting as scribe for signing physician. Objective - Vital Signs Vital signs: Vital Signs Temp 98.6 F 11/27/20 08:00 Pulse 94 11/27/20 08:53 Resp 18 11/27/20 08:53 BP 157/65 11/27/20 08:00 Pulse Ox 95 11/27/20 08:29 Intake & Output 11/26/20 11/27/20 11/27/20 18:59 06:59 18:59 Other: Voiding Method Toilet # Voids 3 2 - Labs CBC & Chem 7: 11/25/20 06:51 11/25/20 06:51 Labs: Abnormal Lab Results - Last 24 Hours (Table) 11/26/20 11/26/20 11/26/20 Range/Units 11:23 16:33 20:39 POC Glucose (mg/dL) 249 H 147 H 191 H (75-99) mg/dL Microbiology - Last 24 Hours (Table) 11/26/20 00:49 Gram Stain - Preliminary Sputum Sputum Culture - Preliminary 11/24/20 19:05 Blood Culture - Preliminary Blood No Growth after 48 hours 11/24/20 18:59 Blood Culture - Preliminary Blood No Growth after 48 hours
--- NOTE | 2020-11-28 12:47 | P.DS ---
Providers Date of admission: 11/24/20 20:20 Expected date of discharge: 11/28/20 Attending physician: Melissa Beasley MD Consults: 11/24/20 20:20 Consult Physician Routine Consulting Provider: Elliott Castle Consult Reason/Comments: Asthma Do you want consulting provider notified?: Yes Primary care physician: Skyler Marcano [facility] Course: HISTORY OF PRESENT ILLNESS This is a 69-year-old male patient of Dr. Marcano with past medical history of diabetes mellitus type 2 on insulin pump managed by Dr. Gallagher, moderate persistent asthma under the care of Dr. Mcdonald, hypertension, hyperlipidemia, hypothyroidism. Patient was last hospitalized in September of this year which time he presented with a left ankle bimalleolar fracture status post ORIF. The patient states that he was seen in the emergency center on November 15 which time he was seen for acute exacerbation of asthma placed on antibiotics and prednisone and cough medicine. He thought it was exacerbated by drywall dust as work was being done on his home. He has since followed up with his PCP and placed on antibiotics and steroids and has taken 2 doses. Yesterday he was having tightness in his chest with congestion, cough and shortness of breath. He states he has been utilizing his nebulizer 3 times daily and not getting any better. Chest x-ray showed no acute cardiopulmonary process. His been afebrile, heart rate 95, blood pressure initially 142/70, pulse ox 95% on room air. Blood work reveals WBC 17.3, hemoglobin 13.9, platelet count 307. Electrolytes normal. BUN 31 and creatinine 1.02. Blood sugar 163. Troponin negative. ProBNP 873. Liver function tests were normal. Magnesium 2.3. Patient admitted to the [facility] floor and pulmonary consult requested. 11/26: Patient continues to have wheezing, deep breathing causes him to cough. He is utilizing incentive spirometry and is making improvements. He remains on Solu-Medrol 60 mg IV every 6 hours and this will be continued. IV changed to saline lock. Patient has been afebrile, heart rate between 68 and 90, blood pressure 128/75, pulse ox 95% on room air. Blood sugars running between 143 and 211. Patient is on his insulin pump. Patient is followed by pulmonary medicine. 11/27: Patient continues to have wheezing but not as tight as yesterday. He denies having any nausea, vomiting, abdominal pain or diarrhea. He has been continued on IV Solu-Medrol, nebulizer treatments, Mucinex and Levaquin. Blood sugars are running between 80 and 167. Patient has remained afebrile, heart rate 94, pulse ox 95% on room air. Blood pressure 157/65. Patient is followed closely by pulmonary medicine. Anticipate possible discharge home tomorrow. 11/28: Patient feels that his wheezing is better today. His pulse ox is 94% on room air. He remains afebrile, heart rate 68, blood pressure 157/65. Blood sugars are running between 148 and 167. Patient has been cleared for discharge by putting medicine. Patient will be discharged home today in stable condition. DISCHARGE DIAGNOSES 1. Acute exacerbation of moderate persistent asthma, failed outpatient treatment. 2. Diabetes mellitus type 2. Patient is on insulin pump. 3. Hypertension. 4. Hyperlipidemia. 5. Hypothyroidism. 6. Gastroesophageal reflux disease. 7. Insomnia. DISCHARGE PLAN Home. Impression and plan of care have been directed as dictated by the signing physician. Maria R Topete nurse practitioner acting as scribe for signing physician. Patient Condition at Discharge: Good Plan - Discharge Summary Discharge Rx Participant: No New Discharge Prescriptions: New Levofloxacin [Levaquin] 250 mg PO Q24H #3 tab predniSONE [Deltasone] 0 mg PO DIRECTED #24 tab guaiFENesin [Mucinex] 1,200 mg PO DAILY tablet.er Continue Albuterol Sulfate [Proair Hfa] 2 puff INHALATION RT-Q6H PRN PRN Reason: Shortness Of Breath Montelukast Sodium [Singulair] 10 mg PO HS Atorvastatin Calcium [Lipitor] 40 mg PO HS traZODone HCL [Desyrel] 100 mg PO HS PRN PRN Reason: SLEEP Fluticasone/Vilanterol [Breo Ellipta 100-25 Mcg Inhaler] 1 puff INHALATION RT-DAILY Levalbuterol HCl [Xopenex Nebulized] 1.25 mg INHALATION RT-QID PRN #60 ml PRN Reason: Shortness Of Breath Insulin Aspart (For Pump) [NovoLOG (For Pump)] 0.01 unit SQ-PUMP CONTINUOUS Losartan [Cozaar] 25 mg PO DAILY Levothyroxine Sodium [Synthroid] 150 mcg PO DAILY Codeine Phosphate/Guaifenesin [Guaifen-Codeine 100-10 mg/5 ml] 5 ml PO Q6H PRN PRN Reason: Cough Ascorbic Acid [Vitamin C] 500 mg PO DAILY Famotidine [Pepcid] 20 mg PO BID PRN PRN Reason: ACID REFLUX Cetirizine HCl [Zyrtec] 10 mg PO DAILY PRN PRN Reason: COLD/ALLERGY SYMPTOMS HYDROcodone/APAP 5-325MG [[place] 5-325] 1 tab PO TID PRN PRN Reason: Pain Discontinued predniSONE See Taper PO DIRECTED Azithromycin [Zithromax Z-pack (6 tabs)] See Taper PO DIRECTED Discharge Medication List Albuterol Sulfate [Proair Hfa] 2 puff INHALATION RT-Q6H PRN 12/16/13 [History] Atorvastatin Calcium [Lipitor] 40 mg PO HS 12/16/13 [History] Montelukast Sodium [Singulair] 10 mg PO HS 12/16/13 [History] Fluticasone/Vilanterol [Breo Ellipta 100-25 Mcg Inhaler] 1 puff INHALATION RT- DAILY 09/26/14 [History] traZODone HCL [Desyrel] 100 mg PO HS PRN 09/26/14 [History] Levalbuterol HCl [Xopenex Nebulized] 1.25 mg INHALATION RT-QID PRN #60 ml 10/02/14 [Rx] Insulin Aspart (For Pump) [NovoLOG (For Pump)] 0.01 unit SQ-PUMP CONTINUOUS 02/06/17 [History] Levothyroxine Sodium [Synthroid] 150 mcg PO DAILY 02/06/17 [History] Losartan [Cozaar] 25 mg PO DAILY 02/06/17 [History] Ascorbic Acid [Vitamin C] 500 mg PO DAILY 11/24/20 [History] Cetirizine HCl [Zyrtec] 10 mg PO DAILY PRN 11/24/20 [History] Codeine Phosphate/Guaifenesin [Guaifen-Codeine 100-10 mg/5 ml] 5 ml PO Q6H PRN 11/24/20 [History] Famotidine [Pepcid] 20 mg PO BID PRN 11/24/20 [History] HYDROcodone/APAP 5-325MG [[place] 5-325] 1 tab PO TID PRN 11/24/20 [History] Levofloxacin [Levaquin] 250 mg PO Q24H #3 tab 11/28/20 [Rx] guaiFENesin [Mucinex] 1,200 mg PO DAILY tablet.er 11/28/20 [Rx] predniSONE [Deltasone] 0 mg PO DIRECTED #24 tab 11/28/20 [Rx] Follow up Appointment(s)/Referral(s): Sid Mcdonald DO [Doctor of Osteopathic Medicine] - 1 Week Skyler Marcano MD [Primary Care Provider] - 1 Week Patient Instructions/Handouts: Asthma (DC) Discharge Disposition: HOME SELF-CARE
== END 2020-11-28 12:15 | disposition home or self-care (01) | DRG 203 ==
LOC: EC 17:49 → 4SSUR 20:20
PROVIDERS: ADMIT Internal Medicine; ATTEND Internal Medicine
DX: J45.41 Moderate persistent asthma with (acute) exacerbation (principal); K21.9 Gastro-esophageal reflux disease without esophagitis; E78.5 Hyperlipidemia, unspecified; G47.00 Insomnia, unspecified; I10 Essential (primary) hypertension; E03.9 Hypothyroidism, unspecified; E11.9 Type 2 diabetes mellitus without complications; L80 Vitiligo; J30.9 Allergic rhinitis, unspecified; Z96.41 Presence of insulin pump (external) (internal); Z79.51 Long term (current) use of inhaled steroids; Z79.899 Other long term (current) drug therapy; Z79.890 Hormone replacement therapy; Z79.4 Long term (current) use of insulin; Z88.6 Allergy status to analgesic agent; Z98.890 Other specified postprocedural states; Z79.82 Long term (current) use of aspirin; Z82.5 Family history of asthma and other chronic lower respiratory diseases
CPT/HCPCS: 36415; 71046; 80048; 80053; 83605; 83735; 83880; 84145; 84484; 85025; 85610; 85730; 87040; 87070; 87205; 93005; 94640; 94760; 96365; 96375; 99285

== ENCOUNTER → 2021-01-02 | Outpatient (CLI) | payer BC, MEDICARE ==
[2021-01-02 12:02] LABS: Basophils # (A) 0.1 k/uL (0-0.2); Basophils % (A) 1 %; Eosinophils # (A) 0.4 k/uL (0-0.7); Eosinophils % (A) 5 %; HCT 40.1 % (39.0-53.0); HGB 13.2 gm/dL (13.0-17.5); Lymphocytes # (A) 2.4 k/uL (1.0-4.8); Lymphocytes % (A) 29 %; MCH 29.5 pg (25.0-35.0); MCHC 32.9 g/dL (31.0-37.0); MCV 89.7 fL (80.0-100.0); Mean Platelet Volume 6.8; Monocytes # (A) 0.6 k/uL (0-1.0); Monocytes % (A) 7 %; Neutrophils # (A) 4.6 k/uL (1.3-7.7); Neutrophils % (A) 56 %; Platelet Count 402 k/uL (150-450); RBC 4.47 m/uL (4.30-5.90); RDW 14.3 % (11.5-15.5); WBC 8.3 k/uL (3.8-10.6)
[2021-01-02 14:05] LABS: Total Eosinophil Count 400 #EOS/uL (150-300)
[2021-01-04 16:24] LABS: Cat Epith & Dander IgE <0.10 kU/L; Dermato. farinae IgE <0.10 kU/L; Dog Dander IgE <0.10 kU/L
[2021-01-04 16:25] LABS: Aspergillus fumagatus IgE <0.10 kU/L; Cladosporian herbarum IgE <0.10 kU/L; Cockroach IgE <0.10 kU/L
[2021-01-04 16:26] LABS: Alternaria alternata IgE <0.10 kU/L; Birch IgE <0.10 kU/L; Maple (Box Elder) IgE <0.10 kU/L
[2021-01-04 16:27] LABS: Elm IgE <0.10 kU/L; Oak IgE <0.10 kU/L; Ragweed,Common IgE <0.10 kU/L; Red Top (Bentgrass) IgE <0.10 kU/L
== END | disposition home or self-care (01) ==
LOC: LABWHC1 10:49
PROVIDERS: ATTEND Internal Medicine
DX: J45.50 Severe persistent asthma, uncomplicated (principal)
CPT/HCPCS: 36415; 82785; 85008; 85025; 86003

== ENCOUNTER 2021-02-07 13:27 | Inpatient (IN) | payer BC, MEDICARE ==
[2021-02-07] MEDS ORDERED: IPRATROPIUM-ALBUTEROL 3 ML NEB INHALATION STA (13:51)
[2021-02-07 14:03] LABS: Basophils # (A) 0.1 k/uL (0-0.2); Basophils % (A) 1 %; Eosinophils # (A) 0.2 k/uL (0-0.7); Eosinophils % (A) 3 %; HCT 43.3 % (39.0-53.0); HGB 14.4 gm/dL (13.0-17.5); Lymphocytes # (A) 1.1 k/uL (1.0-4.8); Lymphocytes % (A) 12 %; MCH 29.5 pg (25.0-35.0); MCHC 33.4 g/dL (31.0-37.0); MCV 88.4 fL (80.0-100.0); Mean Platelet Volume 7.2; Monocytes # (A) 0.4 k/uL (0-1.0); Monocytes % (A) 4 %; Neutrophils % (A) 79 %; Platelet Count 266 k/uL (150-450); RDW 14.6 % (11.5-15.5); WBC 8.9 k/uL (3.8-10.6)
--- NOTE | 2021-02-07 14:04 | XR ---
EXAMINATION TYPE: XR chest 2V DATE OF EXAM: 02/07/2021 COMPARISON: 11/24/20 HISTORY: sob TECHNIQUE: Frontal and lateral views of the chest are obtained. FINDINGS: There is no focal air space opacity, pleural effusion, or pneumothorax seen. The cardiac silhouette size is within normal limits. The osseous structures are intact. IMPRESSION: No acute cardiopulmonary process.
--- NOTE | 2021-02-07 14:07 | ED ---
General Adult HPI - General Source: patient, family Mode of arrival: ambulatory Limitations: no limitations <Vitaliy Chisholm - Last Filed: 02/07/21 15:08> <Sid Hunter - Last Filed: 02/07/21 15:21> - General Chief complaint: Shortness of Breath Stated complaint: SOB, lethargic Time Seen by Provider: 02/07/21 13:43 - History of Present Illness Initial comments: This a 70-year-old male presents emergency from chief complaint of exertional shortness of breath. Patient states his symptoms started over this weekend. Patient recently found out that he has aortic regurgitation. He is scheduled for heart cath and MIKAEL on Monday. Patient states symptoms seemed to progress. The weekend he does have some mild leg swelling which is not out of the usual form. No history of congestive heart failure. Patient does have known asthma states he has not noticed any significant wheezing but he's had some wheezing. No fevers or chills no cough no complaints of chest pain or abdominal pain. (Vitaliy Chisholm) - Related Data Home Medications Medication Instructions Recorded Confirmed Albuterol Sulfate [Proair Hfa] 2 puff INHALATION RT-Q6H PRN 12/16/13 11/24/20 Atorvastatin Calcium [Lipitor] 40 mg PO HS 12/16/13 11/24/20 Montelukast Sodium [Singulair] 10 mg PO HS 12/16/13 11/24/20 Fluticasone/Vilanterol [Breo 1 puff INHALATION RT-DAILY 09/26/14 11/24/20 Ellipta 100-25 Mcg Inhaler] traZODone HCL [Desyrel] 100 mg PO HS PRN 09/26/14 11/24/20 Insulin Aspart (For Pump) [NovoLOG 0.01 unit SQ-PUMP CONTINUOUS 02/06/17 11/24/20 (For Pump)] Levothyroxine Sodium [Synthroid] 150 mcg PO DAILY 02/06/17 11/24/20 Losartan [Cozaar] 25 mg PO DAILY 02/06/17 11/24/20 Ascorbic Acid [Vitamin C] 500 mg PO DAILY 11/24/20 11/24/20 Cetirizine HCl [Zyrtec] 10 mg PO DAILY PRN 11/24/20 11/24/20 Codeine Phosphate/Guaifenesin 5 ml PO Q6H PRN 11/24/20 11/24/20 [Guaifen-Codeine 100-10 mg/5 ml] Famotidine [Pepcid] 20 mg PO BID PRN 11/24/20 11/24/20 HYDROcodone/APAP 5-325MG [[place] 1 tab PO TID PRN 11/24/20 11/24/20 5-325] Previous Rx's Medication Instructions Recorded Levalbuterol HCl [Xopenex 1.25 mg INHALATION RT-QID PRN #60 10/02/14 Nebulized] ml Levofloxacin [Levaquin] 250 mg PO Q24H #3 tab 11/28/20 guaiFENesin [Mucinex] 1,200 mg PO DAILY tablet.er 11/28/20 predniSONE [Deltasone] 0 mg PO DIRECTED #24 tab 11/28/20 Allergies Allergy/AdvReac Type Severity Reaction Status Date / Time aspirin Allergy Unknown Rash/Hives Verified 02/07/21 13:43 Review of Systems ROS Other: All systems not noted in ROS Statement are negative. <Vitaliy Chisholm - Last Filed: 02/07/21 15:08> ROS Other: All systems not noted in ROS Statement are negative. <Sid Hunter - Last Filed: 02/07/21 15:21> ROS Statement: Those systems with pertinent positive or pertinent negative responses have been documented in the HPI. Past Medical History Past Medical History: Asthma, Diabetes Mellitus, Hyperlipidemia, Hypertension, Skin Disorder, Thyroid Disorder Additional Past Medical History / Comment(s): Other HX: Moderate persistant asthma, IDDM type I- insulin pump and subcutaneous diabetic sensor, hypothyroidism, vitiligo for 17 years, seasonal allergic rhinitis, right foot drop secondary to pelvic fracture History of Any Multi-Drug Resistant Organisms: None Reported Past Surgical History: Orthopedic Surgery Additional Past Surgical History / Comment(s): reconstruction of pelvis (Feb 2011), bilateral hands tendon release in fingers (2002), Arthoscopic in right knee (1996), steel rodrigo in great toe of right foot (1997), bilateral arthroscopic elbow surgery, left elbow radial nerve release. Past Anesthesia/Blood Transfusion Reactions: Postoperative Nausea & Vomiting (PONV) Additional Past Anesthesia/Blood Transfusion Reaction / Comment(s): Only after the tendon release in fingers Past Psychological History: No Psychological Hx Reported Smoking Status: Never smoker Past Alcohol Use History: None Reported Past Drug Use History: None Reported - Past Family History Father Family Medical History: Myocardial Infarction ([place]) Additional Family Medical History / Comment(s): had in 1972 Mother Family Medical History: Asthma, Cancer, Thyroid Disorder Additional Family Medical History / Comment(s): lung cancer (diagnosed when she was 79) Brother(s) Family Medical History: CVA/TIA, Neurologic Disorder Additional Family Medical History / Comment(s): parkinson's disease, subdural hematoma. Brother is . Sister(s) Family Medical History: No Reported History Daughter(s) Family Medical History: No Reported History Son(s) Family Medical History: No Reported History <Vitaliy Chisholm - Last Filed: 02/07/21 15:08> General Exam Limitations: no limitations General appearance: alert, in no apparent distress Head exam: Present: atraumatic, normocephalic, normal inspection Eye exam: Present: normal appearance, PERRL, EOMI. Absent: scleral icterus, conjunctival injection, periorbital swelling ENT exam: Present: normal exam, mucous membranes moist Neck exam: Present: normal inspection, full ROM. Absent: tenderness, meningismus, lymphadenopathy Respiratory exam: Present: wheezes. Absent: normal lung sounds bilaterally, respiratory distress, rales, rhonchi, stridor Cardiovascular Exam: Present: regular rate, normal rhythm, normal heart sounds. Absent: systolic murmur, diastolic murmur, rubs, gallop, clicks GI/Abdominal exam: Present: soft, normal bowel sounds. Absent: distended, ten derness, guarding, rebound, rigid Extremities exam: Present: pedal edema (Minimal) Neurological exam: Present: alert, oriented X3, CN II-XII intact <Vitaliy Chisholm - Last Filed: 02/07/21 15:08> Course <Sid Hunter - Last Filed: 02/07/21 15:21> Vital Signs 02/07/21 02/07/21 02/07/21 13:39 14:05 14:27 Temperature 98.5 F Pulse Rate 98 105 H Respiratory 18 18 Rate Blood Pressure 180/77 151/68 O2 Sat by Pulse 95 Oximetry 02/07/21 14:44 Temperature Pulse Rate 103 H Respiratory 18 Rate Blood Pressure O2 Sat by Pulse Oximetry - Reevaluation(s) Reevaluation #1: 02/07/21 15:21 A supervision: I proceeded [id number] evaluation the patient I did discuss fi felixbrian with him and his family. Patient does have exertional dyspnea concern for ACS or other etiologies. Patient does have known apparent valvular heart disease. He'll be admitted with cardiology consultation I do agree with the assessment and plan. (Sid Hunter) EKG Findings - EKG Comments: EKG Findings:: EKG performed at 13:45 normal sinus rhythm rate of 93 MI 150 QRS 82 QT/QTC 366/455 <Vitaliy Chisholm - Last Filed: 02/07/21 15:08> Medical Decision Making - Lab Data Result diagrams: 02/07/21 13:54 02/07/21 13:54 <Vitaliy Chisholm - Last Filed: 02/07/21 15:08> - Lab Data Result diagrams: 02/07/21 13:54 02/07/21 13:54 <Sid Hunter - Last Filed: 02/07/21 15:21> - Medical Decision Making 70-year-old presented for exertional dyspnea recent diagnosis of aortic regurg. Patient will be admitted for further evaluation by cardiology as he is scheduled for MIKAEL and heart catheterization. Case discussed with Dr. Mena, consult to Dr. Ames (Vitaliy Chisholm) - Lab Data Lab Results 02/07/21 02/07/21 02/07/21 Range/Units 13:54 13:54 13:54 WBC 8.9 (3.8-10.6) k/uL RBC 4.90 (4.30-5.90) m/uL Hgb 14.4 (13.0-17.5) gm/dL Hct 43.3 (39.0-53.0) % MCV 88.4 (80.0-100.0) fL MCH 29.5 (25.0-35.0) pg MCHC 33.4 (31.0-37.0) g/dL RDW 14.6 (11.5-15.5) % Plt Count 266 (150-450) k/uL MPV 7.2 Neutrophils % 79 % Lymphocytes % 12 % Monocytes % 4 % Eosinophils % 3 % Basophils % 1 % Neutrophils # 7.0 (1.3-7.7) k/uL Lymphocytes # 1.1 (1.0-4.8) k/uL Monocytes # 0.4 (0-1.0) k/uL Eosinophils # 0.2 (0-0.7) k/uL Basophils # 0.1 (0-0.2) k/uL PT 9.9 (9.0-12.0) sec INR 0.9 (<1.2) APTT 23.6 (22.0-30.0) sec Sodium 135 L (137-145) mmol/L Potassium 4.4 (3.5-5.1) mmol/L Chloride 104 (98-107) mmol/L Carbon Dioxide 24 (22-30) mmol/L Anion Gap 7 mmol/L BUN 16 (9-20) mg/dL Creatinine 0.98 (0.66-1.25) mg/dL Est GFR (CKD-EPI)AfAm >90 (>60 ml/min/1.73 sqM) Est GFR (CKD-EPI)NonAf 80 (>60 ml/min/1.73 sqM) Glucose 320 H (74-99) mg/dL POC Glucose (mg/dL) (75-99) mg/dL POC Glu Oncology Physician ID Plasma Lactic Acid Jason (0.7-2.0) mmol/L Calcium 9.0 (8.4-10.2) mg/dL Magnesium 1.9 (1.6-2.3) mg/dL Total Bilirubin 0.7 (0.2-1.3) mg/dL AST 21 (17-59) U/L ALT 21 (4-49) U/L Alkaline Phosphatase 72 (38-126) U/L Troponin I (0.000-0.034) ng/mL NT-Pro-B Natriuret Pep pg/mL Total Protein 6.6 (6.3-8.2) g/dL Albumin 3.9 (3.5-5.0) g/dL 02/07/21 02/07/21 02/07/21 Range/Units 13:54 13:54 13:54 WBC (3.8-10.6) k/uL RBC (4.30-5.90) m/uL Hgb (13.0-17.5) gm/dL Hct (39.0-53.0) % MCV (80.0-100.0) fL MCH (25.0-35.0) pg MCHC (31.0-37.0) g/dL RDW (11.5-15.5) % Plt Count (150-450) k/uL MPV Neutrophils % % Lymphocytes % % Monocytes % % Eosinophils % % Basophils % % Neutrophils # (1.3-7.7) k/uL Lymphocytes # (1.0-4.8) k/uL Monocytes # (0-1.0) k/uL Eosinophils # (0-0.7) k/uL Basophils # (0-0.2) k/uL PT (9.0-12.0) sec INR (<1.2) APTT (22.0-30.0) sec Sodium (137-145) mmol/L Potassium (3.5-5.1) mmol/L Chloride (98-107) mmol/L Carbon Dioxide (22-30) mmol/L Anion Gap mmol/L BUN (9-20) mg/dL Creatinine (0.66-1.25) mg/dL Est GFR (CKD-EPI)AfAm (>60 ml/min/1.73 sqM) Est GFR (CKD-EPI)NonAf (>60 ml/min/1.73 sqM) Glucose (74-99) mg/dL POC Glucose (mg/dL) (75-99) mg/dL POC Glu Oncology Physician ID Plasma Lactic Acid Jason 1.1 (0.7-2.0) mmol/L Calcium (8.4-10.2) mg/dL Magnesium (1.6-2.3) mg/dL Total Bilirubin (0.2-1.3) mg/dL AST (17-59) U/L ALT (4-49) U/L Alkaline Phosphatase (38-126) U/L Troponin I <0.012 (0.000-0.034) ng/mL NT-Pro-B Natriuret Pep 2100 pg/mL Total Protein (6.3-8.2) g/dL Albumin (3.5-5.0) g/dL 02/07/21 Range/Units 14:57 WBC (3.8-10.6) k/uL RBC (4.30-5.90) m/uL Hgb (13.0-17.5) gm/dL Hct (39.0-53.0) % MCV (80.0-100.0) fL MCH (25.0-35.0) pg MCHC (31.0-37.0) g/dL RDW (11.5-15.5) % Plt Count (150-450) k/uL MPV Neutrophils % % Lymphocytes % % Monocytes % % Eosinophils % % Basophils % % Neutrophils # (1.3-7.7) k/uL Lymphocytes # (1.0-4.8) k/uL Monocytes # (0-1.0) k/uL Eosinophils # (0-0.7) k/uL Basophils # (0-0.2) k/uL PT (9.0-12.0) sec INR (<1.2) APTT (22.0-30.0) sec Sodium (137-145) mmol/L Potassium (3.5-5.1) mmol/L Chloride (98-107) mmol/L Carbon Dioxide (22-30) mmol/L Anion Gap mmol/L BUN (9-20) mg/dL Creatinine (0.66-1.25) mg/dL Est GFR (CKD-EPI)AfAm (>60 ml/min/1.73 sqM) Est GFR (CKD-EPI)NonAf (>60 ml/min/1.73 sqM) Glucose (74-99) mg/dL POC Glucose (mg/dL) 274 H (75-99) mg/dL POC Glu Oncology Physician ID Won Preston Plasma Lactic Acid Jason (0.7-2.0) mmol/L Calcium (8.4-10.2) mg/dL Magnesium (1.6-2.3) mg/dL Total Bilirubin (0.2-1.3) mg/dL AST (17-59) U/L ALT (4-49) U/L Alkaline Phosphatase (38-126) U/L Troponin I (0.000-0.034) ng/mL NT-Pro-B Natriuret Pep pg/mL Total Protein (6.3-8.2) g/dL Albumin (3.5-5.0) g/dL Disposition <Vitaliy Chisholm - Last Filed: 02/07/21 15:08> <Sid Hunter - Last Filed: 02/07/21 15:21> Clinical Impression: Exertional dyspnea, Aortic valve insufficiency, Hyperglycemia Disposition: ADMITTED IP TO THIS HOSP Condition: Fair
[2021-02-07 14:12] LABS: ALT 21 U/L (4-49); AST 21 U/L (17-59); African American GFR (CKD) >90 (>60 ml/min/1.73 sqM); Albumin 3.9 g/dL (3.5-5.0); Alkaline Phosphatase 72 U/L (38-126); Anion Gap 7 mmol/L; Blood Urea Nitrogen 16 mg/dL (9-20); Carbon Dioxide 24 mmol/L (22-30); Chloride 104 mmol/L (98-107); Glucose 320 mg/dL (74-99); Magnesium 1.9 mg/dL (1.6-2.3); Non-African American GFR(CKD) 80 (>60 ml/min/1.73 sqM); Potassium 4.4 mmol/L (3.5-5.1); Sodium 135 mmol/L (137-145); Total Bilirubin 0.7 mg/dL (0.2-1.3); Total Protein 6.6 g/dL (6.3-8.2)
[2021-02-07 14:13] LABS: INR 0.9 (<1.2); Partial Thromboplastin Time 23.6 sec (22.0-30.0); Prothrombin Time 9.9 sec (9.0-12.0)
[2021-02-07 14:58] LABS: Glucose,Whole Blood 274 mg/dL (75-99)
[2021-02-07] MEDS ORDERED: NITROGLYCERIN SL TABS 0.4 MG TAB SUBLINGUAL PRN (15:12)
--- NOTE | 2021-02-07 18:20 | CT ---
EXAMINATION TYPE: CT angio chest DATE OF EXAM: 02/07/2021 COMPARISON: 02/06/2017 HISTORY: Shortness of breath, elevated d-dimer, history of leaky aortic valve. CT DLP: 364.3 mGycm Automated exposure control for dose reduction was used. CONTRAST: Performed with IV Contrast, patient injected with 100 mL of Isovue 370. There are 3-D post processed images. The lungs are clear of infiltrate. There is no pleural effusion. Heart is enlarged. There are no jose r r masses. There is no mediastinal adenopathy. There is normal contrast opacification of the pulmonary arteries. There are no filling defects. Thora cic aorta is intact. There is no aneurysm or dissection. Ascending aorta measures 3.4 cm. The bony thorax is intact. There is no compression fracture. Sternum is intact. IMPRESSION: Negative exam. No evidence of pulmonary embolism. No change compared to old exam. No suspicious pulmo nary mass.
[2021-02-07] MEDS: MONTELUKAST 10 MG TAB PO SCH (22:52)
[2021-02-07] MEDS: ATORVASTATIN 40 MG TAB PO SCH (22:52)
[2021-02-08] MEDS ORDERED: FAMOTIDINE 20 MG TAB PO PRN (07:43)
[2021-02-08] MEDS ORDERED: HYDROcodone/APAP 5-325MG 1 EACH TAB PO PRN (07:43)
[2021-02-08] MEDS ORDERED: traZODone HCL 100 MG TAB PO PRN (07:43)
[2021-02-08] MEDS ORDERED: LORATADINE 10 MG TAB PO PRN (07:43)
[2021-02-08] MEDS: ALBUTEROL NEBULIZED 2.5 MG/3 ML INHALATION SCH ×2 (08:27→19:47)
[2021-02-08] MEDS: LOSARTAN 25 MG TAB PO SCH (08:36)
[2021-02-08] MEDS ORDERED: ASPIRIN 325 MG TAB PO SCH (09:00)
[2021-02-08] MEDS: ASPIRIN 81 MG PO SCH (09:32)
[2021-02-08] MEDS: LEVOTHYROXINE 75 MCG TAB PO SCH (09:32)
--- NOTE | 2021-02-08 10:40 | P.CRDCN ---
History of Present Illness History of present illness: HISTORY OF PRESENTING ILLNESS This is a pleasant 70-year-old male past medical history significant for diabetes, hypertension, dyslipidemia, PVCs, Asthma, moderate to severe aortic regurgitation. He follows in the office with Dr. Ames. We have been asked to see in consultation for exertional dyspnea and aortic insufficiency. Patient is seen and examined at bedside, no acute distress. He states that on been having worsening exertional dyspnea and fatigue. He states he cannot do his normal activities at home without feeling more short of breath. He states before he felt he couldn't do more activities at home however now he states he even gets short of breath walking up the steps in his house and up his dog and placement on the couch/bed. He denies chest pain, palpitations, lower extremity edema, weakness, lightheadedness, syncope. He denies any fever, ch ills, cough. He denies symptoms of orthopnea or PND. He states he did have a respiratory treatment at home with some improvement, but felt his symptoms were different than his asthma and presented to the emergency department for further evaluation. Patient recently saw Dr. Ames in the office. He underwent echocardiogram 01/14/2021 which revealed an EF of 50%, mild tricuspid regurgitation, mild mitral regurgitation, mild aortic stenosis, moderate to severe aortic regurgitation. He also underwent a Lexiscan stress test on 12/28/2020 which revealed a fixed inferior wall defect. He was scheduled for cardiac catheterization and MIKAEL on 02/10/2021. DIAGNOSTICS EKG reveals sinus rhythm, heart rate 93, no significant STT wave abnormalities. CT chest was negative for pulmonary embolism. Laboratory reviewed, CBC unremarkable, d-dimer 1.2, sodium 135, potassium 4.4, BUN 16, serum creatinine 0.9, magnesium 1.9, troponin negative 3, proBNP 2100, COVID-19 PCR negative REVIEW OF SYSTEMS At the time of my exam: CONSTITUTIONAL: Denies fever or chills. CARDIOVASCULAR: Positive dyspnea on exertion positive shortness of breath Denies chest pain, orthopnea, PND or palpitations. RESPIRATORY: Denies cough. GASTROINTESTINAL: Denies abdominal pain, diarrhea, constipation, nausea or vo miting. MUSCULOSKELETAL: Denies myalgias. NEUROLOGIC: Denies numbness, tingling, headacbe or weakness. ENDOCRINE: Denies fatigue, weight change, polydipsia or polyurina. GENITOURINARY: Denies burning, hematuria or urgency with micturation. HEMATOLOGIC: Denies history of anemia or bleeding. PHYSICAL EXAMINATION Blood pressure 160/76, heart rate 71, afebrile, maintaining oxygen saturations on room air CONSTITUTIONAL: No apparent distress. HEENT: Head is normocephalic. Pupils are equal, round. Sclerae anicteric. Mucous membranes of the mouth are moist. No JVD. No carotid bruit. CHEST EXAMINATION: Lungs bilateral wheezing to auscultation. No chest wall tenderness is noted on palpation or with deep breathing. HEART EXAMINATION: Regular rate and rhythm. S1, S2 heard. systolic and diastolic murmur noted. ABDOMEN: Soft, nontender. Positive bowel sounds. EXTREMITIES: 2+ peripheral pulses, trace bilateral lower extremity edema and no calf tenderness. SKIN: warm dry NEUROLOGIC EXAMINATION: Patient is awake, alert and oriented x3. ASSESSMENT Shortness of breath, dyspnea on exertion Hypertension Type 2 diabetes Dyslipidemia Asthma Nonrheumatic aortic valve insufficiency Premature ventricular contractions PLAN An acute coronary event has been ruled out with no EKG evidence of ischemia and negative cardiac enzymes. Patient is hemodynamically stable, ok to discharge from a cardiology perspective we recommend patient follow up outpatient for scheduled MIKAEL and cardiac catheterization with Dr. Ames on 02/10/21 as scheduled. Continue home cardiac medications. Follow up with Dr. Ames Nurse Practitioner note has been reviewed, I agree with a documented findings and plan of care. Patient was seen and examined. Past Medical History Past Medical History: Asthma, Diabetes Mellitus, Hyperlipidemia, Hypertension, Skin Disorder, Thyroid Disorder Additional Past Medical History / Comment(s): Other HX: Moderate persistant asthma, IDDM type I- insulin pump and subcutaneous diabetic sensor, hypothyroidism, vitiligo for 17 years, seasonal allergic rhinitis, right foot drop secondary to pelvic fracture History of Any Multi-Drug Resistant Organisms: None Reported Past Surgical History: Orthopedic Surgery Additional Past Surgical History / Comment(s): reconstruction of pelvis (Feb 2011), bilateral hands tendon release in fingers (2002), Arthoscopic in right knee (1996), steel rodrigo in great toe of right foot (1997), bilateral arthroscopic elbow surgery, left elbow radial nerve release. Past Anesthesia/Blood Transfusion Reactions: Postoperative Nausea & Vomiting (PONV) Additional Past Anesthesia/Blood Transfusion Reaction / Comment(s): Only after the tendon release in fingers Past Psychological History: No Psychological Hx Reported Additional Psychological History / Comment(s): Pt resides with his spouse. He is independent. He uses no assistive device. He drives. Smoking Status: Never smoker Past Alcohol Use History: None Reported Past Drug Use History: None Reported - Past Family History Father Family Medical History: Myocardial Infarction ([place]) Additional Family Medical History / Comment(s): had in 1972 Mother Family Medical History: Asthma, Cancer, Thyroid Disorder Additional Family Medical History / Comment(s): lung cancer (diagnosed when she was 79) Brother(s) Family Medical History: CVA/TIA, Neurologic Disorder Additional Family Medical History / Comment(s): parkinson's disease, subdural hematoma. Brother is . Sister(s) Family Medical History: No Reported History Daughter(s) Family Medical History: No Reported History Son(s) Family Medical History: No Reported History Medications and Allergies Home Medications Medication Instructions Recorded Confirmed Type Albuterol Sulfate [Proair Hfa] 2 puff INHALATION RT-Q6H PRN 12/16/13 02/07/21 History Atorvastatin Calcium [Lipitor] 40 mg PO HS 12/16/13 02/07/21 History Montelukast Sodium [Singulair] 10 mg PO HS 12/16/13 02/07/21 History Fluticasone/Vilanterol [Breo 1 puff INHALATION RT-DAILY 09/26/14 02/07/21 History Ellipta 100-25 Mcg Inhaler] traZODone HCL [Desyrel] 100 mg PO HS PRN 09/26/14 02/07/21 History Insulin Aspart (For Pump) [NovoLOG 0.01 unit SQ-PUMP CONTINUOUS 02/06/17 02/07/21 History (For Pump)] Levothyroxine Sodium [Synthroid] 150 mcg PO DAILY 02/06/17 02/07/21 History Losartan [Cozaar] 25 mg PO DAILY 02/06/17 02/07/21 History Ascorbic Acid [Vitamin C] 500 mg PO DAILY 11/24/20 02/07/21 History Cetirizine HCl [Zyrtec] 10 mg PO DAILY PRN 11/24/20 02/07/21 History Codeine Phosphate/Guaifenesin 5 ml PO Q6H PRN 11/24/20 02/07/21 History [Guaifen-Codeine 100-10 mg/5 ml] Famotidine [Pepcid] 20 mg PO BID PRN 11/24/20 02/07/21 History HYDROcodone/APAP 5-325MG [[place] 1 tab PO QID PRN 11/24/20 02/07/21 History 5-325] Aspirin EC [Ecotrin Low Dose] 81 mg PO DAILY 02/07/21 02/07/21 History Levalbuterol Tartrate 1 puff INHALATION RT-BID 02/07/21 02/07/21 History [Levalbuterol Tartrate 45 MCG Hfa] Allergies Allergy/AdvReac Type Severity Reaction Status Date / Time aspirin AdvReac Unknown Rash/Hives Verified 02/07/21 16:38 Physical Exam Vitals: Vital Signs Temp Pulse Pulse Pulse Resp BP BP 02/08/21 07:00 97.9 F 71 18 02/08/21 01:47 97.8 F 98 16 02/07/21 20:00 18 02/07/21 19:48 98.2 F 71 18 143/72 02/07/21 17:44 70 18 162/68 02/07/21 14:44 103 H 18 02/07/21 14:27 105 H 18 02/07/21 14:05 151/68 02/07/21 13:39 98.5 F 98 18 180/77 BP Pulse Ox 02/08/21 07:00 168/76 98 02/08/21 01:47 151/55 96 02/07/21 20:00 02/07/21 19:48 97 02/07/21 17:44 98 02/07/21 14:44 02/07/21 14:27 02/07/21 14:05 02/07/21 13:39 95 Intake and Output 02/07/21 02/08/21 02/08/21 22:59 06:59 14:59 Intake Total 240 480 Balance 240 480 Intake: Oral 240 480 Other: # Voids 1 1 Weight 92.079 kg Results 02/07/21 13:54 02/07/21 13:54 Cardiac Enzymes 02/07/21 02/07/21 02/07/21 Range/Units 13:54 13:54 17:16 AST 21 (17-59) U/L Troponin I <0.012 0.012 (0.000-0.034) ng/mL 02/07/21 Range/Units 19:53 AST (17-59) U/L Troponin I <0.012 (0.000-0.034) ng/mL Coagulation 02/07/21 Range/Units 13:54 PT 9.9 (9.0-12.0) sec APTT 23.6 (22.0-30.0) sec CBC 02/07/21 Range/Units 13:54 WBC 8.9 (3.8-10.6) k/uL RBC 4.90 (4.30-5.90) m/uL Hgb 14.4 (13.0-17.5) gm/dL Hct 43.3 (39.0-53.0) % Plt Count 266 (150-450) k/uL Comprehensive Metabolic Panel 02/07/21 Range/Units 13:54 Sodium 135 L (137-145) mmol/L Potassium 4.4 (3.5-5.1) mmol/L Chloride 104 (98-107) mmol/L Carbon Dioxide 24 (22-30) mmol/L BUN 16 (9-20) mg/dL Creatinine 0.98 (0.66-1.25) mg/dL Glucose 320 H (74-99) mg/dL Calcium 9.0 (8.4-10.2) mg/dL AST 21 (17-59) U/L ALT 21 (4-49) U/L Alkaline Phosphatase 72 (38-126) U/L Total Protein 6.6 (6.3-8.2) g/dL Albumin 3.9 (3.5-5.0) g/dL Current Medications Generic Name Dose Route Start Last Admin Trade Name Freq PRN Reason Stop Dose Admin Hydrocodone Bitart/Acetaminophen 1 each 02/08/21 07:43 Hydrocodone/Apap 5-325mg 1 Each Tab PO QID PRN Pain Albuterol Sulfate 2.5 mg 02/08/21 08:00 Albuterol Nebulized 2.5 Mg/3 Ml INHALATION RT-BID EVE Aspirin 325 mg 02/08/21 09:00 Aspirin 325 Mg Tab PO DAILY EVE Atorvastatin Calcium 40 mg 02/07/21 22:45 02/07/21 22:52 Atorvastatin 40 Mg Tab PO 40 mg HS EVE Administration Famotidine 20 mg 02/08/21 07:43 Famotidine 20 Mg Tab PO BID PRN ACID REFLUX Levothyroxine Sodium 150 mcg 02/08/21 09:00 Levothyroxine 75 Mcg Tab PO DAILY@0630 EVE Loratadine 10 mg 02/08/21 07:43 Loratadine 10 Mg Tab PO DAILY PRN COLD/ALLERGY SYMPTOMS Losartan Potassium 25 mg 02/08/21 09:00 Losartan 25 Mg Tab PO DAILY EVE Montelukast Sodium 10 mg 02/07/21 22:45 02/07/21 22:52 Montelukast 10 Mg Tab PO 10 mg HS EVE Administration Nitroglycerin 0.4 mg 02/07/21 15:12 Nitroglycerin Sl Tabs 0.4 Mg Tab SUBLINGUAL Q5M PRN Chest Pain Trazodone HCl 100 mg 02/08/21 07:43 Trazodone Hcl 100 Mg Tab PO HS PRN SLEEP Intake and Output 02/07/21 02/08/21 02/08/21 22:59 06:59 14:59 Intake Total 240 480 Balance 240 480 Intake: Oral 240 480 Other: # Voids 1 1 Weight 92.079 kg 02/07/21 13:54 02/07/21 13:54
--- NOTE | 2021-02-08 13:51 | P.HPIM ---
History of Present Illness H&P Date: 02/08/21 This is a 69-year-old male patient of Dr. Marcano with past medical history of diabetes mellitus type 2 on insulin pump managed by Dr. Gallagher, moderate persistent asthma under the care of Dr. Mcdonald, hypertension, hyperlipidemia, hypothyroidism. Patient was last hospitalized in September of this year which time he presented with a left ankle bimalleolar fracture status post ORIF. The patient was treated November 15 which time he was seen for acute exacerbation of asthma placed on antibiotics and prednisone was well since then. Patient was well until a few hours prior to ER visit, where patient was doing ro utine chores at home, and felt short-winded, accompanied by fast heart rate. Patient denies any chest pain, however he was scheduled to have a heart cath, for the aortic regurgitation, on Monday, 02/10, to be done by Dr AMES . He does not feel like his asthma acting up, there is no new triggers, no wheezing, no cough no fever, Patient was seen in emergency room, with normal hematology, INR 1.2, sodium 135, creatinine 0.98, glucose of 320, coronavirus is negative, troponins 3 are negative, chest x-ray failed to reveal any infiltrate, CTA PE protocol negative for pulmonary emboli, no pneumonia, no pleural effusion. No hilar mass agent was seen by cardiology, for which she was given the option to be discharged to home, and return on Monday, if he does better ambulating. He is last echogram was 01/14/2021, EF 50%, mild TR, mild MR, mild AST, with moderate to severe aortic regurgitation, stress test 12/28/2020, which shows fixed inferior wall defect. Cardiac cath and MIKAEL was scheduled on February [address] Ames Review of Systems Constitutional: Reports as per HPI, Denies anorexia, Denies chills, Denies chronic headaches, Denies chronic pain, Denies daytime sleepiness, Denies fatigue, Denies fever, Denies lethargy, Denies malaise, Denies night sweats, Denies poor appetite, Denies sweats, Denies weakness, Denies weight gain, Denies weight loss Cardiovascular: Reports decreased exercise tolerance, Reports dyspnea on exertion, Denies as per HPI, Denies chest pain, Denies claudication, Denies edema, Denies high blood pressure, Denies irregular heart beat, Denies leg edema, Denies lightheadedness, Denies orthopnea, Denies palpitations, Denies paroxysmal nocturnal dyspnea, Denies phlebitis, Denies rapid heart beat, Denies shortness of breath, Denies syncope Respiratory: Denies cough, Denies home oxygen Gastrointestinal: Reports as per HPI, Denies abdominal pain, Denies heartburn, Denies nausea, Denies vomiting Genitourinary: Reports as per HPI Integumentary: Reports as per HPI Neurological: Reports as per HPI, Denies aphasia, Denies ataxia, Denies balance difficulties, Denies burning pain, Denies change in mentation, Denies change in smell/taste, Denies change in speech, Denies confusion, Denies convulsions, Denies double vision, Denies gait dysfunction, Denies head injury, Denies headaches, Denies hearing difficulties, Denies lack of coordination, Denies loss of vision, Denies memory loss, Denies migraines, Denies motor disturbance, Denies numbness, Denies paralysis, Denies paresthesias, Denies seizures, Denies sensory deficit, Denies spasticity, Denies syncope, Denies tic, Denies tingling, Denies transient paralysis, Denies tremors, Denies vertigo, Denies weakness, Denies visual changes Psychiatric: Reports as per HPI, Reports anhedonia Endocrine: Reports as per HPI, Denies cold intolerance, Denies deepening of the voice, Denies excessive sweating, Denies excessive thirst, Denies fatigue, Denies flushing, Denies heat intolerance, Denies high blood sugars, Denies increase in ring/shoe/hat size, Denies low blood sugars, Denies nocturia, Denies palpitations, Denies polydipsia, Denies polyphagia, Denies polyuria, Denies proptosis, Denies recent glucocorticoid use, Denies thyroid mass, Denies weight change Past Medical History Past Medical History: Asthma, Diabetes Mellitus, Hyperlipidemia, Hypertension, Skin Disorder, Thyroid Disorder Additional Past Medical History / Comment(s): Other HX: Moderate persistant asthma, IDDM type I- insulin pump and subcutaneous diabetic sensor, hypothyroidism, vitiligo for 17 years, seasonal allergic rhinitis, right foot drop secondary to pelvic fracture History of Any Multi-Drug Resistant Organisms: None Reported Past Surgical History: Orthopedic Surgery Additional Past Surgical History / Comment(s): reconstruction of pelvis (Feb 2011), bilateral hands tendon release in fingers (2002), Arthoscopic in right knee (1996), steel rodrigo in great toe of right foot (1997), bilateral arthroscopic elbow surgery, left elbow radial nerve release. Past Anesthesia/Blood Transfusion Reactions: Postoperative Nausea & Vomiting (PONV) Additional Past Anesthesia/Blood Transfusion Reaction / Comment(s): Only after the tendon release in fingers Past Psychological History: No Psychological Hx Reported Additional Psychological History / Comment(s): Pt resides with his spouse. He is independent. He uses no assistive device. He drives. Smoking Status: Never smoker Past Alcohol Use History: None Reported Past Drug Use History: None Reported - Past Family History Father Family Medical History: Myocardial Infarction ([place]) Additional Family Medical History / Comment(s): had in 1972 Mother Family Medical History: Asthma, Cancer, Thyroid Disorder Additional Family Medical History / Comment(s): lung cancer (diagnosed when she was 79) Brother(s) Family Medical History: CVA/TIA, Neurologic Disorder Additional Family Medical History / Comment(s): parkinson's disease, subdural hematoma. Brother is . Sister(s) Family Medical History: No Reported History Daughter(s) Family Medical History: No Reported History Son(s) Family Medical History: No Reported History Medications and Allergies Home Medications Medication Instructions Recorded Confirmed Type Albuterol Sulfate [Proair Hfa] 2 puff INHALATION RT-Q6H PRN 12/16/13 02/07/21 History Atorvastatin Calcium [Lipitor] 40 mg PO HS 12/16/13 02/07/21 History Montelukast Sodium [Singulair] 10 mg PO HS 12/16/13 02/07/21 History Fluticasone/Vilanterol [Breo 1 puff INHALATION RT-DAILY 09/26/14 02/07/21 History Ellipta 100-25 Mcg Inhaler] traZODone HCL [Desyrel] 100 mg PO HS PRN 09/26/14 02/07/21 History Insulin Aspart (For Pump) [NovoLOG 0.01 unit SQ-PUMP CONTINUOUS 02/06/17 02/07/21 History (For Pump)] Levothyroxine Sodium [Synthroid] 150 mcg PO DAILY 02/06/17 02/07/21 History Losartan [Cozaar] 25 mg PO DAILY 02/06/17 02/07/21 History Ascorbic Acid [Vitamin C] 500 mg PO DAILY 11/24/20 02/07/21 History Cetirizine HCl [Zyrtec] 10 mg PO DAILY PRN 11/24/20 02/07/21 History Famotidine [Pepcid] 20 mg PO BID PRN 11/24/20 02/07/21 History HYDROcodone/APAP 5-325MG [[place] 1 tab PO QID PRN 11/24/20 02/07/21 History 5-325] Aspirin EC [Ecotrin Low Dose] 81 mg PO DAILY 02/07/21 02/07/21 History Levalbuterol Tartrate 1 puff INHALATION RT-BID 02/07/21 02/07/21 History [Levalbuterol Tartrate 45 MCG Hfa] Allergies Allergy/AdvReac Type Severity Reaction Status Date / Time aspirin AdvReac Unknown Rash/Hives Verified 02/07/21 16:38 Physical Exam Vitals: Vital Signs Temp Pulse Pulse Pulse Resp BP BP 02/08/21 08:38 93 02/08/21 08:27 91 02/08/21 07:00 97.9 F 71 18 02/08/21 01:47 97.8 F 98 16 02/07/21 20:00 18 02/07/21 19:48 98.2 F 71 18 143/72 02/07/21 17:44 70 18 162/68 02/07/21 14:44 103 H 18 02/07/21 14:27 105 H 18 02/07/21 14:05 151/68 02/07/21 13:39 98.5 F 98 18 180/77 BP Pulse Ox 02/08/21 08:38 02/08/21 08:27 94 L 02/08/21 07:00 168/76 98 02/08/21 01:47 151/55 96 02/07/21 20:00 02/07/21 19:48 97 02/07/21 17:44 98 02/07/21 14:44 02/07/21 14:27 02/07/21 14:05 02/07/21 13:39 95 Intake and Output 02/07/21 02/08/21 02/08/21 22:59 06:59 14:59 Intake Total 240 480 Balance 240 480 Intake: Oral 240 480 Other: # Voids 1 1 Weight 92.079 kg - Constitutional General appearance: cooperative, no acute distress, obese - EENT Eyes: edentulous, dentition normal - Neck Neck: normal ROM - Respiratory Respiratory: bilateral: CTA, negative: diminished, dullness - Cardiovascular Rhythm: regular Heart sounds: normal: S1, S2 Abnormal Heart Sounds: systolic murmur - Gastrointestinal General gastrointestinal: no absent bowel sounds, no decreased bowel sounds, no distended, no hepatomegaly, no hyperactive bowel sounds, no normal bowel sounds, no organomegaly, no rigid, no scaphoid, no soft, no splenomegaly, no tenderness, no umbilical hernia, no ventral hernia - Neurologic Neurologic: CNII-XII intact - Musculoskeletal Musculoskeletal: gait normal, strength equal bilaterally - Psychiatric Psychiatric: A&O x's 3, appropriate affect, intact judgment & insight Results CBC & Chem 7: 02/07/21 13:54 02/07/21 13:54 Labs: Abnormal Lab Results - Last 24 Hours (Table) 02/07/21 02/07/21 02/07/21 Range/Units 13:54 13:54 14:57 D-Dimer 1.27 H (<0.60) mg/L FEU Sodium 135 L (137-145) mmol/L Glucose 320 H (74-99) mg/dL POC Glucose (mg/dL) 274 H (75-99) mg/dL Thrombosis Risk Factor Assmnt - Choose All That Apply Each Factor Represents 1 point: Age 41-60 years, Varicose veins Other congenital or acquired thrombophilia - If yes, enter type in comment: No Thrombosis Risk Factor Assessment Total Risk Factor Score: 2 Thrombosis Risk Factor Assessment Level: Low Risk Assessment and Plan Plan: 1. Dyspnea and exertion, related to ambulation, and increased heart rate, doubt asthma exacerbation +, there is no pleural effusion, and no wheezing on examination, patient has Xopenex on a when necessary basis, and maintenance medications. He does have severe aortic regurgitation, which can worsen the patient's symptoms, patient would be kept, with consultation to cardiology, cath to be performed on 929, , Pulmicort 1 mg twice daily, Mucinex and Robitussin with codeine as needed, Singulair 10 mg at bedtime. Negative for PE, need to rule out any arrhythmias including A. fib. Patient's on telemetry 2. Diabetes mellitus type 2. Patient is on insulin pump. 3. Hypertension. Continue losartan 25 mg daily. 4. Hyperlipidemia. Continue atorvastatin 40 mg at bedtime. 5. Hypothyroidism. Continue levothyroxine 150 g daily. 6. Gastroesophageal reflux disease. Continue Pepcid 20 mg twice daily as needed. 7. Insomnia. Continue trazodone 100 mg at bedtime as needed..
[2021-02-08] MEDS: MONTELUKAST 10 MG TAB PO SCH (20:21)
[2021-02-08] MEDS: ATORVASTATIN 40 MG TAB PO SCH (20:21)
[2021-02-08] MEDS ORDERED: ATORVASTATIN 40 MG TAB PO SCH (21:00)
[2021-02-08] MEDS ORDERED: MONTELUKAST 10 MG TAB PO SCH (21:00)
[2021-02-09] MEDS: LEVOTHYROXINE 75 MCG TAB PO SCH (06:08)
[2021-02-09] MEDS ORDERED: SYMBICORT 80-4.5 MCG INHALER INHALATION SCH (08:00)
[2021-02-09] MEDS: LOSARTAN 25 MG TAB PO SCH (09:04)
[2021-02-09] MEDS: ASPIRIN 81 MG PO SCH (09:04)
[2021-02-09] MEDS ORDERED: methylPREDNISolone SOD SUCCI 125 MG/2 ML VIAL IV STA (09:15)
[2021-02-09] MEDS ORDERED: LOSARTAN 25 MG TAB PO STA (09:20)
[2021-02-09] MEDS: BUDESONIDE 1 MG/2 ML NEBU INHALATION SCH ×2 (09:33→20:06)
[2021-02-09] MEDS: ALBUTEROL NEBULIZED 2.5 MG/3 ML INHALATION SCH ×2 (09:33→20:06)
[2021-02-09] MEDS ORDERED: FUROSEMIDE 10 MG/ML 2 ML VIAL IV SCH (10:00)
--- NOTE | 2021-02-09 12:15 | P.PN ---
Subjective This is a pleasant 70-year-old male past medical history significant for diabetes, hypertension, dyslipidemia, PVCs, Asthma, moderate to severe aortic regurgitation. He follows in the office with Dr. Ames. We have been asked to see in consultation for exertional dyspnea and aortic insufficiency. He states that on been having worsening exertional dyspnea and fatigue. He states he cannot do his normal activities at home without feeling more short of breath. He states before he felt he couldn't do more activities at home however now he states he even gets short of breath walking up the steps in his house and up his dog and placement on the couch/bed. He denies chest pain, palpitations, lower extremity edema, weakness, lightheadedness, syncope. He denies any fever, chills, cough. He denies symptoms of orthopnea or PND. He states he did have a respiratory treatment at home with some improvement, but felt his symptoms were different than his asthma and presented to the emergency department for further evaluation. Patient recently saw Dr. Ames in the office. He underwent echocardiogram 01/14/2021 which revealed an EF of 50%, mild tricuspid regurgitation, mild mitral regurgitation, mild aortic stenosis, moderate to severe aortic regurgitation. He also underwent a Lexiscan stress test on 12/28/2020 which revealed a fixed inferior wall defect. He was scheduled for cardiac catheterization and MIKAEL on 02/10/2021. 02/09/21: Patient seen and examined at bedside, no acute distress. He continues to have dyspnea on exertion. He states that walking in the halls he continues to feel worsening shortness of breath. Denies any chest pain, lightheadedness, dizziness.patient is currently maintained on aspirin milligrams daily, atorvastatin 40 mg nightly, losartan 25 mg daily PHYSICAL EXAMINATION blood pressure 170/71, heart rate 71, afebrile, maintaining saturations on room air CONSTITUTIONAL: No apparent distress. HEENT: Neck Supple. No JVD. CHEST EXAMINATION: Lungs bilateral wheezing to auscultation. No chest wall tenderness is noted on palpation or with deep breathing. HEART EXAMINATION: Regular rate and rhythm. S1, S2 heard. systolic and diastolic murmur noted. ABDOMEN: Soft, nontender. Positive bowel sounds. EXTREMITIES: 2+ peripheral pulses, trace bilateral lower extremity edema and no calf tenderness. NEUROLOGIC EXAMINATION: Patient is awake, alert and oriented x3. ASSESSMENT Shortness of breath, dyspnea on exertion Acute on chronic diastolic heart failure Hypertension Type 2 diabetes Dyslipidemia Asthma Nonrheumatic aortic valve insufficiency Premature ventricular contractions PLAN -Increase Losartan to 50mg daily -We will start IV Lasix 20mg daily -I/Os, daily weights -Monitor renal function and electrolytes -NPO at midnight -Plan for MIKAEL and cardiac catheterization with Dr. Ames tomorrow 02/10/21 Further recommendations based on clinical course Nurse Practitioner note has been reviewed, I agree with a documented findings and plan of care. Patient was seen and examined. Objective - Vital Signs Vital signs: Vital Signs Temp 98.3 F 02/09/21 07:00 Pulse 100 02/09/21 09:48 Resp 18 02/09/21 09:48 BP 170/71 02/09/21 07:00 Pulse Ox 97 02/09/21 09:34 Intake & Output 02/08/21 02/09/21 02/09/21 18:59 06:59 18:59 Intake Total 0 Balance 0 Intake: Oral 0 Other: # Voids 3 1 # Bowel Movements 0 - Labs CBC & Chem 7: 02/07/21 13:54 02/07/21 13:54
--- NOTE | 2021-02-09 12:39 | P.PN ---
Subjective Progress Note Date: 02/09/21 HISTORY OF PRESENT ILLNESS This is a 69-year-old male patient of Dr. Marcano with past medical history of diabetes mellitus type 2 on insulin pump managed by Dr. Gallagher, moderate persistent asthma under the care of Dr. Mcdonald, hypertension, hyperlipidemia, hypothyroidism. Patient was last hospitalized in September of this year which time he presented with a left ankle bimalleolar fracture status post ORIF. The patient was treated November 15 which time he was seen for acute exacerbation of asthma placed on antibiotics and prednisone was well since then. Patient was well until a few hours prior to ER visit, where patient was doing routine chores at home, and felt short-winded, accompanied by fast heart rate. Patient denies any chest pain, however he was scheduled to have a heart cath, for the aortic regurgitation, on 02/10, to be done by Dr AMES . He does not feel like his asthma acting up, there is no new triggers, no wheezing, no cough no fever, Patient was seen in emergency room, with normal hematology, INR 1.2, sodium 135, creatinine 0.98, glucose of 320, coronavirus is negative, troponins 3 are negative, chest x-ray failed to reveal any infiltrate, CTA PE protocol negative for pulmonary emboli, no pneumonia, no pleural effusion. No hilar mass agent was seen by cardiology, for which she was given the option to be discharged to home, and return on Monday, if he does better ambulating. He is last echogram was 01/14/2021, EF 50%, mild TR, mild MR, mild AST, with moderate to severe aortic regurgitation, stress test 12/28/2020, which shows fixed inferior wall defect. Cardiac cath and MIKAEL was scheduled on February [address] Ames 02/09: Patient was seen by cardiology and cleared for discharge however patient had shortness of breath with ambulation and was given option to go home or stay and he wanted to stay in the hospital. He is complaining of shortness of breath with activity. He denies having any cough. He does complain of nasal congestion. He states when he is active he can feel PVCs and then feel short of breath when his heart rate is elevated. Medication changes have been made to include starting Pulmicort versus Symbicort and 1 dose of IV Solu-Medrol 60 mg ordered. Patient states he slept well last night. He is scheduled for heart catheterization tomorrow with Dr. Ames. Cardiology has increased losartan 50 mg daily and started IV Lasix 20 mg daily. REVIEW OF SYSTEMS Constitutional: No fever, no chills, no night sweats. No weight change. No weakness, fatigue or lethargy. No daytime sleepiness. EENT: No headache. No blurred vision or double vision, no loss of vision. No loss of Hearing, no ringing in the ears, no dizziness. No nasal drainage or congestion. No epistaxis. No sore throat. Lungs: Reports shortness of breath with activity, cough, no sputum production. No wheezing. Cardiovascular: No chest pain, no lower extremity edema. Reports palpitations. No paroxysmal nocturnal dyspnea. No orthopnea. No lightheadedness or dizziness. No syncopal episodes. Abdominal: No abdominal pain. No nausea, vomiting. No diarrhea. No constipation. No bloody or tarry stools.. No loss of appetite. Genitourinary: No dysuria, increased frequency, urgency. No urinary retention. Musculoskeletal: No myalgias. No muscle weakness, no gait dysfunction, no frequent falls. No back pain. No neck pain. Integumentary: No wounds, no lesions. No rash or pruritus. No unusual bruising. No change in hair or nails. Neurologic: No aphasia. No facial droop. No change in mentation. No head injury. No headache. No paralysis. No paresthesia. Psychiatric: No depression. No anxiety. No mood swings. Endocrine: No abnormal blood sugars. No weight change. PHYSICAL EXAMINATION Gen: This is a 70-year-old male. He is resting on the edge of the bed and appears to be comfortable and in no acute distress. HEENT: Head is atraumatic, normocephalic. Pupils equal, round. Sclerae is anicteric. NECK: Supple. No JVD. No lymphadenopathy. No thyromegaly. LUNGS: Bilateral expiratory wheeze. No intercostal retractions. HEART: Regular rate and rhythm. Systolic murmur. ABDOMEN: Soft. Bowel sounds are present. No masses. No tenderness. EXTREMITIES: Trace bilateral pedal edema. No calf tenderness. NEUROLOGICAL: Patient is awake, alert and oriented x3. Cranial nerves 2 through 12 are grossly intact. ASSESSMENT AND PLAN 1. Dyspnea and exertion, related to ambulation, and increased heart rate, possible mild asthma exacerbation, acute on chronic diastolic heart failure. He does have severe aortic regurgitation, which can worsen the patient's symptoms, patient would be kept, with consultation to cardiology, cath to be performed on 02/10, change Symbicort to Pulmicort 1 mg twice daily, continue Mucinex and Robitussin with codeine as needed, Singulair 10 mg at bedtime. One dose of IV Solu-Medrol 60 mg, IV Lasix 20 mg daily, monitor I&O and daily weights, monitor renal function and electrolytes. 2. Diabetes mellitus type 2. Patient is on insulin pump. 3. Hypertension. Continue losartan increased to 50 mg daily. 4. Hyperlipidemia. Continue atorvastatin 40 mg at bedtime. 5. Hypothyroidism. Continue levothyroxine 150 g daily. 6. Gastroesophageal reflux disease. Continue Pepcid 20 mg twice daily as needed. 7. Insomnia. Continue trazodone 100 mg at bedtime as needed. 8. COVID-19 testing negative. Patient has been hospitalized during a pandemic. DISCHARGE PLAN Home. Impression and plan of care have been directed as dictated by the signing p [email or web address]. Maria R Topete nurse practitioner acting as scribe for signing physician. Objective - Vital Signs Vital signs: Vital Signs Temp 98.3 F 02/09/21 07:00 Pulse 71 02/09/21 07:00 Resp 18 02/09/21 07:00 BP 170/71 02/09/21 07:00 Pulse Ox 99 02/09/21 07:00 Intake & Output 02/08/21 02/09/21 02/09/21 18:59 06:59 18:59 Intake Total 0 Balance 0 Intake: Oral 0 Other: # Voids 3 1 # Bowel Movements 0 - Labs CBC & Chem 7: 02/07/21 13:54 02/07/21 13:54
[2021-02-09] MEDS: ATORVASTATIN 40 MG TAB PO SCH (21:53)
[2021-02-09] MEDS: MONTELUKAST 10 MG TAB PO SCH (21:53)
[2021-02-10] MEDS: LEVOTHYROXINE 75 MCG TAB PO SCH (05:57)
[2021-02-10] MEDS ORDERED: ASPIRIN 325 MG TAB PO ONE (06:00)
[2021-02-10 06:06] LABS: African American GFR (CKD) 81 (>60 ml/min/1.73 sqM); Anion Gap 10 mmol/L; Blood Urea Nitrogen 24 mg/dL (9-20); Calcium 9.5 mg/dL (8.4-10.2); Carbon Dioxide 20 mmol/L (22-30); Chloride 106 mmol/L (98-107); Glucose 118 mg/dL (74-99); Non-African American GFR(CKD) 70 (>60 ml/min/1.73 sqM); Potassium 4.2 mmol/L (3.5-5.1); Sodium 136 mmol/L (137-145)
[2021-02-10] MEDS ORDERED: fentaNYL (PF) 50 MCG/ML 2 ML AMP ONE (06:39)
[2021-02-10] MEDS ORDERED: IV FLUID CONTINUATION 1,000 ML IV ONE ×2 (07:00→07:59)
[2021-02-10] MEDS: BENZOCAINE SPRAY 1 CAN TOPICAL ONE ×2 (07:08→07:11)
[2021-02-10] MEDS ORDERED: MIDAZOLAM 2 MG/2 ML VIAL IV ONE ×2 (07:24→07:27)
[2021-02-10] MEDS ORDERED: fentaNYL (PF) 50 MCG/ML 2 ML AMP IV ONE (07:24)
[2021-02-10] MEDS ORDERED: LIDOCAINE 1% INJ 10MG/ML (20 ML MDV) SQ ONE ×2 (07:57→07:58)
[2021-02-10] MEDS ORDERED: VERAPAMIL SYRINGE (5 MG/10 ML) INTRAARTER ONE (08:00)
[2021-02-10] MEDS ORDERED: HEPARIN SODIUM 1,000 UN/ML (10ML VL) IV ONE (08:17)
[2021-02-10 08:25] LABS: O2 Sat Blood Gas 96.6 %
[2021-02-10 08:30] LABS: O2 Sat Blood Gas 75.2 %
[2021-02-10] MEDS ORDERED: IOPAMIDOL-370 125ML BTL INJ ONE (08:30)
[2021-02-10 08:33] LABS: O2 Sat Blood Gas 72.5 %
[2021-02-10] MEDS ORDERED: RX INFO: IV CONTRAST WAS GIVEN 1 EACH MISC MISCELLANE PRN (08:39)
[2021-02-10] MEDS ORDERED: SODIUM CHLORIDE 0.9% 1,000 ML IV SCH ×2 (08:45)
[2021-02-10] MEDS: BUDESONIDE 1 MG/2 ML NEBU INHALATION SCH (08:46)
[2021-02-10] MEDS: ALBUTEROL NEBULIZED 2.5 MG/3 ML INHALATION SCH (08:46)
[2021-02-10] MEDS ORDERED: FUROSEMIDE 20 MG TAB PO SCH (09:00)
[2021-02-10] MEDS ORDERED: METOPROLOL TARTRATE 25 MG TAB PO SCH (09:00)
[2021-02-10] MEDS ORDERED: LOSARTAN 50 MG TAB PO SCH (09:00)
--- NOTE | 2021-02-10 09:20 | P.DS ---
Providers Date of admission: 02/09/21 13:47 Expected date of discharge: 02/10/21 Attending physician: Eliza Mena Consults: 02/07/21 15:12 Consult Physician Urgent Consulting Provider: Hardeep Ames Consult Reason/Comments: Exertional dyspnea, aortic valve insufficiency Do you want consulting provider notified?: Yes Primary care physician: Skyler Marcano [facility] Course: HISTORY OF PRESENT ILLNESS This is a 69-year-old male patient of Dr. Marcano with past medical history of diabetes mellitus type 2 on insulin pump managed by Dr. Gallagher, moderate persistent asthma under the care of Dr. Mcdonald, hypertension, hyperlipidemia, hypothyroidism. Patient was last hospitalized in September of this year which time he presented with a left ankle bimalleolar fracture status post ORIF. The patient was treated November 15 which time he was seen for acute exacerbation of asthma placed on antibiotics and prednisone was well since then. Patient was well until a few hours prior to ER visit, where patient was doing routine chores at home, and felt short-winded, accompanied by fast heart rate. Patient denies any chest pain, however he was scheduled to have a heart cath, for the aortic regurgitation, on 02/10, to be done by Dr AMES . He does not feel like his asthma acting up, there is no new triggers, no wheezing, no cough no fever, Patient was seen in emergency room, with normal hematology, INR 1.2, sodium 135, creatinine 0.98, glucose of 320, coronavirus is negative, troponins 3 are negative, chest x-ray failed to reveal any infiltrate, CTA PE protocol negative for pulmonary emboli, no pneumonia, no pleural effusion. No hilar mass agent was seen by cardiology, for which she was given the option to be discharged to home, and return on Monday, if he does better ambulating. He is last echogram was 01/14/2021, EF 50%, mild TR, mild MR, mild AST, with moderate to severe aortic regurgitation, stress test 12/28/2020, which shows fixed inferior wall defect. Cardiac cath and MIKAEL was scheduled on February [address] Ames 02/09: Patient was seen by cardiology and cleared for discharge however patient had shortness of breath with ambulation and was given option to go home or stay and he wanted to stay in the hospital. He is complaining of shortness of breath with activity. He denies having any cough. He does complain of nasal congestion. He states when he is active he can feel PVCs and then feel short of breath when his heart rate is elevated. Medication changes have been made to include starting Pulmicort versus Symbicort and 1 dose of IV Solu-Medrol 60 mg ordered. Patient states he slept well last night. He is scheduled for heart catheterization tomorrow with Dr. Ames. Cardiology has increased losartan 50 mg daily and started IV Lasix 20 mg daily. 02/10: Patient underwent MIKAEL that revealed tricuspid aortic valve calcified with mild aortic stenosis and severe aortic regurgitation, mild mitral and tricuspid regurgitation, no shunting across interstitial septum and heart catheterization with Dr. Ames that found normal coronary arteries, 4+ aortic regurgitation with recommendations to proceed for evaluation of aortic valve replacement. Patient will be discharged home today in stable condition ASSESSMENT AND PLAN 1. Dyspnea and exertion secondary to severe aortic regurgitation. 2. Diabetes mellitus type 2. 3. Hypertension. 4. Hyperlipidemia. 5. Hypothyroidism. 6. Gastroesophageal reflux disease. 7. Insomnia. 8. COVID-19 testing negative. DISCHARGE PLAN Home. Impression and plan of care have been directed as dictated by the signing physician. Maria R Topete nurse practitioner acting as scribe for signing geraldo landin. Patient Condition at Discharge: Good Plan - Discharge Summary Discharge Rx Participant: No New Discharge Prescriptions: New Losartan [Cozaar] 50 mg PO DAILY #30 tab Furosemide [Lasix] 20 mg PO BID@0900,1600 #60 tab Metoprolol Tartrate [Lopressor] 25 mg PO BID #60 tab Budesonide [Pulmicort] 1 mg INHALATION RT-BID #60 inh Continue Albuterol Sulfate [Proair Hfa] 2 puff INHALATION RT-Q6H PRN PRN Reason: Shortness Of Breath Montelukast Sodium [Singulair] 10 mg PO HS Atorvastatin Calcium [Lipitor] 40 mg PO HS traZODone HCL [Desyrel] 100 mg PO HS PRN PRN Reason: SLEEP Insulin Aspart (For Pump) [NovoLOG (For Pump)] 0.01 unit SQ-PUMP CONTINUOUS Losartan [Cozaar] 25 mg PO DAILY Levothyroxine Sodium [Synthroid] 150 mcg PO DAILY Ascorbic Acid [Vitamin C] 500 mg PO DAILY Famotidine [Pepcid] 20 mg PO BID PRN PRN Reason: ACID REFLUX Aspirin EC [Ecotrin Low Dose] 81 mg PO DAILY Cetirizine HCl [Zyrtec] 10 mg PO DAILY PRN PRN Reason: COLD/ALLERGY SYMPTOMS HYDROcodone/APAP 5-325MG [Soudan 5-325] 1 tab PO QID PRN PRN Reason: Pain Levalbuterol Tartrate [Levalbuterol Tartrate 45 MCG Hfa] 1 puff INHALATION RT-BID Fluticasone/Vilanterol [Breo Ellipta 100-25 Mcg Inhaler] 1 puff INHALATION RT-DAILY #0 Discontinued Codeine Phosphate/Guaifenesin [Guaifen-Codeine 100-10 mg/5 ml] 5 ml PO Q6H PRN PRN Reason: Cough Discharge Medication List Albuterol Sulfate [Proair Hfa] 2 puff INHALATION RT-Q6H PRN 12/16/13 [History] Atorvastatin Calcium [Lipitor] 40 mg PO HS 12/16/13 [History] Montelukast Sodium [Singulair] 10 mg PO HS 12/16/13 [History] traZODone HCL [Desyrel] 100 mg PO HS PRN 09/26/14 [History] Insulin Aspart (For Pump) [NovoLOG (For Pump)] 0.01 unit SQ-PUMP CONTINUOUS 02/06/17 [History] Levothyroxine Sodium [Synthroid] 150 mcg PO DAILY 02/06/17 [History] Losartan [Cozaar] 25 mg PO DAILY 02/06/17 [History] Ascorbic Acid [Vitamin C] 500 mg PO DAILY 11/24/20 [History] Cetirizine HCl [Zyrtec] 10 mg PO DAILY PRN 11/24/20 [History] Famotidine [Pepcid] 20 mg PO BID PRN 11/24/20 [History] HYDROcodone/APAP 5-325MG [Soudan 5-325] 1 tab PO QID PRN 11/24/20 [History] Aspirin EC [Ecotrin Low Dose] 81 mg PO DAILY 02/07/21 [History] Levalbuterol Tartrate [Levalbuterol Tartrate 45 MCG Hfa] 1 puff INHALATION RT- BID 02/07/21 [History] Budesonide [Pulmicort] 1 mg INHALATION RT-BID #60 inh 02/10/21 [Rx] Fluticasone/Vilanterol [Breo Ellipta 100-25 Mcg Inhaler] 1 puff INHALATION RT- DAILY #0 02/10/21 [Rx] Furosemide [Lasix] 20 mg PO BID@0900,1600 #60 tab 02/10/21 [Rx] Losartan [Cozaar] 50 mg PO DAILY #30 tab 02/10/21 [Rx] Metoprolol Tartrate [Lopressor] 25 mg PO BID #60 tab 02/10/21 [Rx] Follow up Appointment(s)/Referral(s): Hardeep Ames MD [STAFF PHYSICIAN] - 1 Week Skyler Marcano MD [Primary Care Provider] - 1-2 days Patient Instructions/Handouts: Right Heart Catheterization (DC), Heart Healthy Diet (DC) Discharge Disposition: HOME SELF-CARE
[2021-02-10] MEDS: ASPIRIN 81 MG PO SCH (10:01)
--- NOTE | 2021-02-10 10:45 | ECHOT ---
TRANSESOPHAGEAL ECHOCARDIOGRAM INDICATION: Evaluation of aortic valve. PROCEDURE DESCRIPTION: After explaining the procedure to the patient, its risks and complications, his blood pressure, heart rate and oxygen saturation were monitored. The throat was sprayed with Cetacaine. He received 3 mg of intravenous Versed, 50 mcg of intravenous fentanyl. The probe was introduced into the esophagus without difficulty. Images were obtained. Following that, the probe was removed. There was no immediate complication. FINDINGS: Left atrial size is mildly dilated. Left atrial appendage is normal. Left ventricular size is normal. There is evidence of global hypokinesis. Estimated ejection fraction of 45% to 50%. The aortic valve is a tricuspid valve with fibrocalcific changes and preserved opening. Mitral valve appears to be normal. Tricuspid valve is normal. Pulmonic valve is normal. Descending thoracic aorta appears to be normal. No pericardial effusion was noted. Contrast bubble study revealed no shunting across the interatrial septum. Pulse wave and color Doppler were obtained and revealed severe aortic regurgitation with mild mitral and tricuspid regurgitation. The peak gradient across the aortic valve was 24 mmHg with a mean of 15 mmHg. There was no shunting by color Doppler study. CONCLUSION: 1. Mildly dilated left atrium. 2. Normal left ventricular size with mild global hypokinesis. 3. Tricuspid aortic valve, calcified, with mild aortic stenosis and severe aortic regurgitation. 4. Mild mitral and tricuspid regurgitation. 5. No shunting across the interatrial septum. 6. Normal size of the ascending aorta. MMODL / IJN: [id number] /
--- NOTE | 2021-02-10 11:02 | CC ---
CARDIAC CATHETERIZATION REPORT Mr. Glasgow is a 70-year-old male with known history of hypertension, hyperlipidemia and diabetes mellitus who presented with symptoms of progressive dyspnea. He has a known history of aortic regurgitation. In view of that, recommendation was made regarding cardiac catheterization. The procedure as well as its risks and complications were discussed with the patient, who was in full understanding and agreement. PROCEDURE DESCRIPTION: The patient was brought to the laboratory sampler in a fasting, semi-sedated state after receiving fentanyl and Benadryl and achieving a moderate conscious sedated state. Using Xylocaine anesthesia and Seldinger technique, a 6-Micronesian sheath was introduced into the right radial artery. Subsequently using a guidewire exchange technique the intravenous catheter in the right basilic vein was exchanged for a 6-Micronesian sheath. Right heart catheterization was performed using Walker-Blayne catheter. Multiple pressure and samples were obtained. Cardiac output by thermodilution was calculated. Following that, selective right and left coronary angiography was performed using 5-Micronesian 3.5 bend right and left Silvestre catheters. Multiple views were taken of the arteries, including hemiaxial views. The right Silvestre was used to cross the aortic valve and left ventricular end-diastolic pressure was calculated. Following that, a 5-Micronesian tight pigtail catheter was introduced into the ascending aorta and UZBEK view of the ascending aorta was obtained. Following that, catheter and sheath were removed. Hemostasis was obtained with deployment of a TR band. There was no immediate complication. Patient was returned to his room in stable condition. Of note, the patient received 4500 units of intravenous heparin as well as intra-arterial verapamil. HEMODYNAMICS: Cardiac output by thermodilution was 7 L/minute and by Bjorn of 6.7 L/minute. Arterial saturation 97%, pulmonary artery saturation 75%, right atrial saturation 73%, pulmonary artery systolic pressure of 32 with a diastolic of 12 and mean of 12 mmHg. Pulmonary capillary wedge pressure A-wave of 24, V-wave of 18, with a mean of 14 mmHg. Right ventricular systolic pressure of 40 with an end-diastolic of 8 mmHg. Right atrium A- wave of 10, V-wave of 6 with a mean of 4 mmHg. Left ventricular end-diastolic pressure was 24-28 mmHg. FINDINGS: LEFT MAIN: This is a short-sized vessel bifurcating into left circumflex and left anterior descending artery. Left main coronary artery has no evidence of high-grade stenosis. LEFT ANTERIOR DESCENDING CORONARY ARTERY: This is a large-sized vessel reaching to the apex with a wrap around the apex segment giving rise to a large diagonal branch in mid segment. The left anterior descending artery and its is branches have no evidence of obstructive coronary artery disease. LEFT CIRCUMFLEX: This is a nondominant vessel giving rise to 2 obtuse marginal branches. The first one is large in caliber. The left circumflex as well as its branches have no evidence of obstructive coronary artery disease. RIGHT CORONARY ARTERY: This is a large dominant vessel bifurcating into PDA and posterolateral segment and branches. The right coronary artery as well as its branches have no evidence of obstructive coronary artery disease. LEFT VENTRICULOGRAM: Left ventriculogram was not performed. AORTOGRAM: Aortogram was performed in the UZBEK view and revealed 4+ aortic regurgitation with a tricuspid aortic valve. CONCLUSION: 1. Normal coronary arteries. 2. Four plus aortic regurgitation. RECOMMENDATIONS: In view of findings and anatomy, I have recommended proceeding with evaluation for aortic valve replacement. Those findings and recommendations were discussed with the patient and his family, and they are in full understanding and agreement. Duration of the sedation was 35 minutes. MMODL / IJN: [id number] /
[2021-02-10 13:53] VITALS: TEMP 97.7
[2021-02-10 13:57] VITALS: RESP 18
[2021-02-10 13:59] VITALS: BP 126/68; PULSE 67
== END 2021-02-10 14:19 | disposition home or self-care (01) | DRG 287 ==
LOC: EC 13:27 → 6NMEDSUR 15:16 → OBSVTOIN 02-09 13:47
PROVIDERS: ADMIT Family Medicine; ATTEND Family Medicine
PROC: B24BZZ4 Ultrasonography of Heart with Aorta, Transesophageal (ICD-10-PCS; 2021-02-10)
PROC: B2111ZZ Fluoroscopy of Multiple Coronary Arteries using Low Osmolar Contrast (ICD-10-PCS; principal; 2021-02-10 07:15)
PROC: 4A023N6 Measurement of Cardiac Sampling and Pressure, Right Heart, Percutaneous Approach (ICD-10-PCS; principal; 2021-02-10 07:15)
DX: I11.0 Hypertensive heart disease with heart failure (principal); J45.41 Moderate persistent asthma with (acute) exacerbation; I50.33 Acute on chronic diastolic (congestive) heart failure; E11.65 Type 2 diabetes mellitus with hyperglycemia; Z79.4 Long term (current) use of insulin; Z20.822 Contact with and (suspected) exposure to COVID-19; I08.3 Combined rheumatic disorders of mitral, aortic and tricuspid valves; I49.3 Ventricular premature depolarization; E03.9 Hypothyroidism, unspecified; E78.5 Hyperlipidemia, unspecified; K21.9 Gastro-esophageal reflux disease without esophagitis; G47.00 Insomnia, unspecified; L80 Vitiligo; J30.2 Other seasonal allergic rhinitis; M21.371 Foot drop, right foot; I83.90 Asymptomatic varicose veins of unspecified lower extremity; E66.9 Obesity, unspecified; Z68.29 Body mass index [BMI] 29.0-29.9, adult; Z79.82 Long term (current) use of aspirin; Z79.51 Long term (current) use of inhaled steroids; Z79.890 Hormone replacement therapy; Z79.899 Other long term (current) drug therapy; Z87.81 Personal history of (healed) traumatic fracture; Z96.41 Presence of insulin pump (external) (internal); Z87.39 Personal history of other diseases of the musculoskeletal system and connective tissue; Z98.890 Other specified postprocedural states; Z88.6 Allergy status to analgesic agent; Z82.49 Family history of ischemic heart disease and other diseases of the circulatory system; Z82.5 Family history of asthma and other chronic lower respiratory diseases; Z80.1 Family history of malignant neoplasm of trachea, bronchus and lung; Z82.0 Family history of epilepsy and other diseases of the nervous system; Z82.3 Family history of stroke
CPT/HCPCS: 36415; 71046; 71275; 80048; 80053; 82810; 83605; 83735; 83880; 84484; 85018; 85025; 85379; 85610; 85730; 87635; 93005; 93312; 93320; 93325; 93460; 94640; 94760; 99285

== ENCOUNTER → 2021-03-11 | Outpatient (CLI) | payer BC, MEDICARE ==
[2021-03-11 09:26] LABS: HGB 12.8 gm/dL (13.0-17.5); MCH 28.4 pg (25.0-35.0); MCHC 31.3 g/dL (31.0-37.0); MCV 90.8 fL (80.0-100.0); Mean Platelet Volume 7.7; Platelet Count 208 k/uL (150-450); RBC 4.51 m/uL (4.30-5.90); RDW 13.6 % (11.5-15.5); WBC 8.2 k/uL (3.8-10.6)
[2021-03-11 09:35] LABS: INR 0.9 (<1.2); Partial Thromboplastin Time 22.3 sec (22.0-30.0); Prothrombin Time 10.2 sec (9.0-12.0)
[2021-03-11 09:53] LABS: Albumin 3.9 g/dL (3.5-5.0); Calcium 9.3 mg/dL (8.4-10.2); Potassium 4.5 mmol/L (3.5-5.1); Total Bilirubin 0.4 mg/dL (0.2-1.3); Total Protein 6.5 g/dL (6.3-8.2)
[2021-03-11 10:07] LABS: Appearance,Urine Clear (Clear); Bilirubin,Urine Negative (Negative); Blood,Urine Negative (Negative); Color,Urine Yellow; Glucose,Urine (UA) 4+ (Negative); Ketones,Urine Negative (Negative); Leukocyte Esterase,Urine Negative (Negative); Nitrite,Urine Negative (Negative); PH, Urine 5.5 (5.0-8.0); Protein,Urine Trace (Negative); Specific Gravity,Urine 1.018 (1.001-1.035); Urobilinogen,Urine <2.0 mg/dL (<2.0)
[2021-03-12 00:02] LABS: Hepatitis A Antibody IgM Nonreactive (Nonreactive); Hepatitis B Core IgM Nonreactive (Nonreactive); Hepatitis B Surface Antigen Nonreactive (Nonreactive); Hepatitis C IgG Antibody Nonreactive (Nonreactive)
[2021-03-12 03:11] LABS: Chol/HDL Ratio 2.09 Ratio; LDL Cholesterol,Calculated 72.8 mg/dL (0.0-131.0); VLDL Calculation 11.2 mg/dL (5.00-40.00)
--- NOTE | 2021-03-12 09:03 | P.PN ---
Progress Note - Text Progress Note Date: 03/11/21 5 meter walk test completed: #1 4.27 sec #2 3.96 sec #3 3.93 sec Patient tolerated without difficulty
== END | disposition home or self-care (01) ==
LOC: LABPAT 08:27
PROVIDERS: ATTEND Surgery
DX: Z01.810 Encounter for preprocedural cardiovascular examination (principal); I35.2 Nonrheumatic aortic (valve) stenosis with insufficiency; I49.1 Atrial premature depolarization
CPT/HCPCS: 36415; 80053; 80061; 80074; 81003; 83036; 83735; 84439; 84443; 85027; 85610; 85730; 87070; 87086; 93005; 93970; 94150

== ENCOUNTER 2021-03-15 08:00 | Inpatient (IN) | payer BC, MEDICARE ==
[2021-03-29] MEDS ORDERED: NITROGLYCERIN SL TABS 0.4 MG TAB SUBLINGUAL ONE (05:00)
[2021-03-29] MEDS ORDERED: MAGNESIUM SULFATE 16.24 MEQ in EMPTY SYRINGE 1 SYR IV ONE (05:00)
[2021-03-29] MEDS ORDERED: ATORVASTATIN 10 MG TAB PO ONE (05:00)
[2021-03-29] MEDS ORDERED: MANNITOL 25% 12.5 GM/50 ML VIAL IV ONE (05:00)
[2021-03-29] MEDS ORDERED: ELECTROLYTE-A SOLUTION 1,000 ML with POTASSIUM CHLORIDE 40 MEQ, MAGNESIUM SULFATE 16 ME... IV ONE ×5 (05:00)
[2021-03-29] MEDS ORDERED: CALCIUM CHLORIDE 100 MG/ML 10 ML SYRINGE IV ONE (05:00)
[2021-03-29] MEDS ORDERED: NOREPINEPHRINE 4 MG in SODIUM CHLORIDE 0.9% 250 ML IV ONE (05:00)
[2021-03-29] MEDS ORDERED: ASPIRIN 81 MG PO ONE (05:00)
[2021-03-29] MEDS ORDERED: SODIUM CHLORIDE 0.9% 1,000 ML IV ONE (05:00)
[2021-03-29] MEDS ORDERED: TRANEXAMIC ACID 2,000 MG in SODIUM CHLORIDE 0.9% 80 ML IV ONE ×4 (05:00)
[2021-03-29] MEDS ORDERED: CHLORHEXIDINE GLUCONATE 15 ML CUP MUCOUS MEM ONE (05:00)
[2021-03-29] MEDS ORDERED: LACTATED RINGERS 1,000 ML IV ONE ×2 (05:00→06:17)
[2021-03-29] MEDS ORDERED: METOPROLOL TARTRATE 12.5 MG TAB PO ONE (05:00)
[2021-03-29] MEDS ORDERED: PHENYLEPHRINE 10 MG/ML VIAL IV ONE (05:00)
[2021-03-29] MEDS ORDERED: PHENYLEPHRINE 40 MG in SODIUM CHLORIDE 0.9% 250 ML IV ONE (05:00)
[2021-03-29] MEDS ORDERED: ALBUMIN HUMAN 5% 500 ML IVPB ONE (05:00)
[2021-03-29] MEDS ORDERED: propofoL 1,000 MG/100 ML VIAL IV ONE (05:00)
[2021-03-29] MEDS ORDERED: CLEVIDIPINE BUTYRATE 25 MG in EMPTY BAG 1 BAG IV ONE (05:00)
[2021-03-29] MEDS ORDERED: INSULIN REGULAR 100 UNIT in SODIUM CHLORIDE 0.9% 100 ML IV ONE (05:00)
[2021-03-29] MEDS ORDERED: NITROGLYCERIN-D5W PMX 25 MG/250 ML BTL IV ONE (05:00)
[2021-03-29] MEDS ORDERED: PROTAMINE SULFATE 10 MG/ML 25 ML VIAL IV ONE ×2 (05:00→07:31)
[2021-03-29] MEDS ORDERED: PROTAMINE SULFATE 250 MG in EMPTY BAG 1 BAG IV ONE (05:00)
[2021-03-29] MEDS ORDERED: ALBUMIN HUMAN 25% 50 ML IV ONE (05:00)
[2021-03-29] MEDS ORDERED: HEPARIN SODIUM 1,000 UN/ML (10ML VL) IV ONE (05:00)
[2021-03-29] MEDS ORDERED: NITROGLYCERIN-D5W PMX 50 MG in DEXTROSE/WATER 1 250ML.BAG IV ONE (05:00)
[2021-03-29] MEDS ORDERED: ceFAZolin 1,000 MG in SODIUM CHLORIDE 0.9% IRRIGATIO 1,000 ML IRRIGATION ONE (05:00)
[2021-03-29] MEDS ORDERED: SODIUM BICARB 8.4% 50 ML SYR (1 MEQ/ML) IV ONE (05:00)
[2021-03-29] MEDS ORDERED: HEPARIN SODIUM,PORCINE 5,000 UNIT in SODIUM CHLORIDE 0.9% 500 ML 500 ML IV ONE (05:00)
[2021-03-29] MEDS ORDERED: ELECTROLYTE-A SOLUTION 1,000 ML with POTASSIUM CHLORIDE 100 MEQ, MAGNESIUM SULFATE 16 M... IV ONE ×5 (05:00)
[2021-03-29] MEDS ORDERED: LACTATED RINGERS 1,000 ML IV SCH (05:10)
[2021-03-29] MEDS ORDERED: MIDAZOLAM 2 MG/2 ML VIAL IV PRN (05:10)
[2021-03-29 06:13] LABS: Glucose,Whole Blood 119 mg/dL (75-99)
[2021-03-29] MEDS ORDERED: SODIUM CHLORIDE 0.9% IRRIG 1,000 ML BTL IRRIGATION ONE (07:31)
[2021-03-29] MEDS ORDERED: SUCCINYLCHOLINE CHLORIDE 100 MG/5 ML SYR IV ONE (07:31)
[2021-03-29] MEDS ORDERED: ceFAZolin 1,000 MG VIAL ONE (07:31)
[2021-03-29] MEDS ORDERED: PROPOFOL 10 MG/ML 20 ML VIAL IV ONE (07:31)
[2021-03-29] MEDS ORDERED: fentaNYL (PF) 50 MCG/ML 50 ML VIAL ONE (07:31)
[2021-03-29] MEDS ORDERED: VECURONIUM 10 MG VIAL IV ONE (07:31)
[2021-03-29] MEDS ORDERED: INSULIN REGULAR 100 UNIT/ML VIAL (IV) ONE (07:31)
[2021-03-29] MEDS ORDERED: SODIUM CHLORIDE 0.9% 100 ML BAG ONE (07:31)
[2021-03-29] MEDS ORDERED: LIDOCAINE 2% SYG (PF) 100 MG/5 ML ONE (07:31)
[2021-03-29] MEDS ORDERED: HEPARIN SODIUM,PORCINE 10,000 UNIT/ML 1 ML VIAL ONE (07:31)
[2021-03-29] MEDS ORDERED: HYDROCORTISONE SUCCINATE 100 MG/2 ML VIAL ONE (07:31)
[2021-03-29] MEDS ORDERED: ELECTROLYTE-R (PH 7.4) 1,000 ML IV.SOLN IV ONE (07:31)
[2021-03-29] MEDS ORDERED: MAGNESIUM SULFATE 4 MEQ/ML 10ML VIAL ONE (07:31)
[2021-03-29] MEDS ORDERED: SUFentanil 50 MCG/ML 1 ML AMP IV ONE (07:31)
[2021-03-29] MEDS ORDERED: MIDAZOLAM 2 MG/2 ML VIAL ONE (07:31)
[2021-03-29] MEDS ORDERED: SODIUM CHLORIDE 0.9% 250 ML BAG ONE (07:31)
[2021-03-29] MEDS ORDERED: TRANEXAMIC ACID 1,000 MG/10 ML VIAL ONE (07:31)
--- NOTE | 2021-03-29 10:34 | P.ANPRN ---
Procedure Note - Anesthesia - Invasive Line Right Central Line Time Out Performed: Yes ([id number]) Date of Procedure: 03/29/21 Time of Procedure: 07:15 Location of Patient: Phase I Preparation: Sterile Prep, Sterile Dressing Arterial Line Location: Radial (l) Ultrasound Used: Yes Purpose - Visualization and Identification of Vasculature: Yes Needle Guage: 18g angio Image Stored and Saved: Yes Narrative: Central line placement per sterile protocol utilized. right neck prepped and draped. Sterile Protocol. Lido 1% 3cc. 18g angio. Jwire. Uneventful dilation and introduction right IJ cordis Right [place] Blayne Time Out Performed: Yes ([id number]) Date of Procedure: 03/29/21 Time of Procedure: 07:24 Location of Patient: Phase I Preparation: Sterile Prep, Sterile Dressing Ultrasound Used: No Purpose - Visualization and Identification of Vasculature: No Image Stored and Saved: No Narrative: Central line placement per sterile protocol utilized. [place] floated in sheath in one attempt to wedge at 60cm. W/d to 56cm PA wave form.
[2021-03-29] MEDS ORDERED: ALBUMIN HUMAN 5% 250 ML IVPB ONE (12:20)
[2021-03-29] MEDS ORDERED: IPRATROPIUM-ALBUTEROL 3 ML NEB INHALATION PRN (12:26)
[2021-03-29] MEDS ORDERED: MORPHINE SULFATE 2 MG/ML SYRINGE IVP PRN (12:26)
[2021-03-29] MEDS ORDERED: METOCLOPRAMIDE 5 MG/ML 2 ML VIAL IVP PRN (12:26)
[2021-03-29] MEDS ORDERED: AMIODARONE 360 MG in DEXTROSE 5% IN WATER 200 ML IV PRN ×2 (12:26)
[2021-03-29] MEDS ORDERED: AMIODARONE 450 MG in DEXTROSE 5% IN WATER 250 ML IV PRN ×2 (12:26)
[2021-03-29] MEDS ORDERED: ONDANSETRON 4 MG/2 ML VIAL IVP PRN (12:26)
[2021-03-29] MEDS ORDERED: DEXMEDETOMIDINE/0.9% NACL(PMX) 400 MCG in EMPTY BAG 1 BAG IV SCH (12:26)
[2021-03-29] MEDS ORDERED: hydrALAZINE HCL 20 MG/ML 1 ML VIAL IVP PRN (12:26)
[2021-03-29] MEDS ORDERED: Magnesium Replacement Protocol 1 EACH MISC MISCELLANE PRN (12:26)
[2021-03-29] MEDS ORDERED: CALCIUM GLUCONATE 2 GM in SODIUM CHLORIDE 0.9% 100 ML IVPB PRN (12:26)
[2021-03-29] MEDS ORDERED: BENZOCAINE/MENTHOL LOZENG 1 EACH LOZENGE MUCOUS MEM PRN (12:26)
[2021-03-29] MEDS ORDERED: Phosphorus Replacement Protoco 1 EACH MISC MISCELLANE PRN (12:26)
[2021-03-29] MEDS ORDERED: CLEVIDIPINE BUTYRATE 25 MG in EMPTY BAG 1 BAG IV SCH (12:26)
[2021-03-29] MEDS ORDERED: Potassium Replacement Protocol 1 EACH MISC MISCELLANE PRN (12:26)
[2021-03-29 12:45] LABS: Glucose,Whole Blood 107 mg/dL (75-99)
[2021-03-29 12:57] LABS: Basophils % (A) 0 %; Eosinophils % (A) 0 %; HCT 32.2 % (39.0-53.0); HGB 10.5 gm/dL (13.0-17.5); Lymphocytes # (A) 1.1 k/uL (1.0-4.8); Lymphocytes % (A) 6 %; MCH 29.6 pg (25.0-35.0); MCHC 32.7 g/dL (31.0-37.0); MCV 90.3 fL (80.0-100.0); Mean Platelet Volume 7.9; Monocytes % (A) 6 %; Neutrophils # (A) 15.5 k/uL (1.3-7.7); Neutrophils % (A) 87 %; Platelet Count 142 k/uL (150-450); RBC 3.57 m/uL (4.30-5.90); RDW 13.5 % (11.5-15.5); WBC 17.7 k/uL (3.8-10.6)
[2021-03-29 13:04] LABS: ABG HCO3 25 mmol/L (21-25); ABG PCO2 50 mmHg (35-45); ABG PH 7.31 (7.35-7.45); ABG PO2 361 mmHg (83-108); ABG TCO2 27 mmol/L (19-24)
[2021-03-29 13:12] LABS: Ionized Calcium 4.9 mg/dL (4.5-5.3)
[2021-03-29 13:13] LABS: INR 1.1 (<1.2); Partial Thromboplastin Time 26.3 sec (22.0-30.0); Prothrombin Time 11.8 sec (9.0-12.0)
[2021-03-29] MEDS: IPRATROPIUM-ALBUTEROL 3 ML NEB INHALATION SCH ×3 (13:19→20:55)
[2021-03-29 13:21] LABS: ALT 14 U/L (4-49); AST 30 U/L (17-59); African American GFR (CKD) >90 (>60 ml/min/1.73 sqM); Albumin 2.3 g/dL (3.5-5.0); Alkaline Phosphatase 28 U/L (38-126); Anion Gap 0 mmol/L; Blood Urea Nitrogen 20 mg/dL (9-20); Calcium 7.6 mg/dL (8.4-10.2); Carbon Dioxide 24 mmol/L (22-30); Chloride 110 mmol/L (98-107); Glucose 107 mg/dL (74-99); Magnesium 2.9 mg/dL (1.6-2.3); Non-African American GFR(CKD) >90 (>60 ml/min/1.73 sqM); Potassium 4.7 mmol/L (3.5-5.1); Sodium 134 mmol/L (137-145); Total Bilirubin 0.5 mg/dL (0.2-1.3); Total Protein 4.3 g/dL (6.3-8.2)
[2021-03-29] MEDS: SODIUM CHLORIDE 0.9% 1,000 ML IV SCH (13:23)
[2021-03-29] MEDS: ACETAMINOPHEN IV (For NPO) 1,000 MG in EMPTY BAG 1 BAG IVPB SCH ×2 (13:23→18:40)
--- NOTE | 2021-03-29 13:30 | XR ---
EXAMINATION TYPE: XR chest 1V portable DATE OF EXAM: 03/29/2021 Comparison: 02/07/2021 Clinical History: 70-year-old male Post Operative Cardiac Surgery Findings: 82 is satisfactory. NG tube courses below the diaphragm. Median sternotomy wires are present. Prosthe tic aortic valve. Mediastinal drains. Right IJ Fall[place]ber-Blayne catheter tip in the main pulmonary outflow t ract. Some hazy density at the right mid and lower lung could represent fluid along the fissure. Blun ting of the left costophrenic angle likely trace effusion. Right basilar chest tube. No appreciable p neumothorax. Impression: Status post median sternotomy. Prosthetic aortic valve replacement. There is some hazy right mid and lower lung density, probably trace pleural fluid tracking along the major fissure. Blunting of the le ft costophrenic angle likely trace left pleural effusion.
[2021-03-29 14:10] LABS: Glucose,Whole Blood 218 mg/dL (75-99)
[2021-03-29] MEDS: INSULIN REGULAR 100 UNIT in SODIUM CHLORIDE 0.9% 100 ML IV SCH (14:32)
[2021-03-29 15:01] LABS: Glucose,Whole Blood 231 mg/dL (75-99)
[2021-03-29 15:15] LABS: Basophils % (A) 0 %; Eosinophils % (A) 0 %; HCT 35.5 % (39.0-53.0); HGB 11.4 gm/dL (13.0-17.5); Lymphocytes # (A) 1.1 k/uL (1.0-4.8); Lymphocytes % (A) 4 %; MCH 29.2 pg (25.0-35.0); MCHC 32.2 g/dL (31.0-37.0); MCV 90.8 fL (80.0-100.0); Mean Platelet Volume 7.9; Monocytes # (A) 1.2 k/uL (0-1.0); Monocytes % (A) 4 %; Neutrophils # (A) 24.1 k/uL (1.3-7.7); Neutrophils % (A) 91 %; Platelet Count 188 k/uL (150-450); RBC 3.91 m/uL (4.30-5.90); RDW 13.5 % (11.5-15.5); WBC 26.6 k/uL (3.8-10.6)
[2021-03-29 16:05] LABS: Glucose,Whole Blood 191 mg/dL (75-99)
[2021-03-29] MEDS: HEPARIN SODIUM,PORCINE/PF 5,000 UNIT/0.5 ML SYRINGE SQ SCH (16:56)
[2021-03-29] MEDS: ALBUMIN HUMAN 5% 250 ML in EMPTY BAG 1 BAG IVPB PRN (16:57)
[2021-03-29 17:08] LABS: Glucose,Whole Blood 158 mg/dL (75-99)
[2021-03-29 17:22] LABS: ABG Base Excess -3.6 mmol/L; ABG HCO3 22 mmol/L (21-25); ABG Oxygen Saturation 99.5 % (94-97); ABG PCO2 39 mmHg (35-45); ABG PH 7.36 (7.35-7.45); ABG PO2 141 mmHg (83-108); ABG TCO2 23 mmol/L (19-24)
[2021-03-29 17:57] LABS: Glucose,Whole Blood 142 mg/dL (75-99)
--- NOTE | 2021-03-29 18:08 | P.CNPUL ---
History of Present Illness Consult date: 03/29/21 Requesting physician: Clemencia Arauz Reason for consult: other Chief complaint: Status post aortic valve replacement. History of present illness: This is a 70-year-old white male with history of diabetes, patient has insulin pump place, patient is also known to have history of asthma, hypertension, recent 2-D echo showed aortic valve regurgitation, and the patient was complaining of dyspnea on exertion. Initially his shortness of breath was blamed on his asthma, however further workup was done, patient had MIKAEL showing severe aortic valve regurgitation, mild aortic stenosis, ejection fraction of 45%, and he was also noted to have dilatation of the left ventricle and moderate hypertrophy. Patient was seen by cardiothoracic surgery on consultation, and today he underwent aortic valve replacement, patient was sent to the ICU on mechanical ventilation, and at the time I evaluated the patient, patient was already on weaning mode of mechanical ventilation using pressure support of 8 and PEEP of 8. Patient was actually on CPAP, and he was noted to be doing well. ABG was excellent, and shortly after my evaluation, I recommended extubating the patient. And this was done uneventfully. Chest x-ray showed no evidence of active disease. Labs were all reviewed, ABG was also reviewed. Review of Systems ROS unobtainable: due to endotracheal tube Past Medical History Past Medical History: Asthma, Diabetes Mellitus, GERD/Reflux, Hyperlipidemia, Hypertension, Osteoarthritis (OA), Skin Disorder, Thyroid Disorder Additional Past Medical History / Comment(s): Moderate persistant asthma, IDDM type I- insulin pump and subcutaneous diabetic sensor, hypothyroidism, vitiligo for 17 years, seasonal allergic rhinitis, right foot drop secondary to pelvic fracture, SOB w/exertion, recent flare up w/athma, finished A/B & steroids, feeling much better History of Any Multi-Drug Resistant Organisms: None Reported Past Surgical History: Heart Catheterization, Orthopedic Surgery Additional Past Surgical History / Comment(s): reconstruction of pelvis (Feb 2011), bilateral hands tendon release in fingers (2002), Arthoscopic in right knee (1996), steel rodrigo in great toe of right foot (1997), bilateral arthroscopic elbow surgery, left elbow radial nerve release, ORIF left ankle Past Anesthesia/Blood Transfusion Reactions: Postoperative Nausea & Vomiting (PONV) Additional Past Anesthesia/Blood Transfusion Reaction / Comment(s): Only after the tendon release in fingers, never had blood transfusion Smoking Status: Never smoker - Past Family History Father Family Medical History: Myocardial Infarction ([place]) Additional Family Medical History / Comment(s): had in 1972 Mother Family Medical History: Asthma, Cancer, Thyroid Disorder Additional Family Medical History / Comment(s): lung cancer (diagnosed when she was 79) Brother(s) Family Medical History: CVA/TIA, Neurologic Disorder Additional Family Medical History / Comment(s): parkinson's disease, subdural hematoma. Brother is . Sister(s) Family Medical History: No Reported History Daughter(s) Family Medical History: No Reported History Son(s) Family Medical History: No Reported History Medications and Allergies Home Medications Medication Instructions Recorded Confirmed Type Albuterol Sulfate [Proair Hfa] 2 puff INHALATION RT-Q6H PRN 12/16/13 03/25/21 History Atorvastatin Calcium [Lipitor] 40 mg PO HS 12/16/13 03/25/21 History Montelukast Sodium [Singulair] 10 mg PO HS 12/16/13 03/25/21 History traZODone HCL [Desyrel] 100 mg PO HS PRN 09/26/14 03/25/21 History Insulin Aspart (For Pump) [NovoLOG 0.01 unit SQ-PUMP CONTINUOUS 02/06/17 03/25/21 History (For Pump)] Levothyroxine Sodium [Synthroid] 150 mcg PO DAILY 02/06/17 03/25/21 History Ascorbic Acid [Vitamin C] 500 mg PO DAILY 11/24/20 03/25/21 History Famotidine [Pepcid] 20 mg PO BID 11/24/20 03/25/21 History HYDROcodone/APAP 5-325MG [Molt 1 tab PO QID PRN 11/24/20 03/25/21 History 5-325] Aspirin EC [Ecotrin Low Dose] 81 mg PO DAILY 02/07/21 03/25/21 History Levalbuterol Tartrate 1 puff INHALATION RT-BID PRN 02/07/21 03/25/21 History [Levalbuterol Tartrate 45 MCG Hfa] Fluticasone/Vilanterol [Breo 1 puff INHALATION RT-DAILY #0 02/10/21 03/25/21 Rx Ellipta 100-25 Mcg Inhaler] Furosemide [Lasix] 20 mg PO BID@0900,1600 #60 tab 02/10/21 03/25/21 Rx Losartan [Cozaar] 50 mg PO DAILY #30 tab 02/10/21 03/25/21 Rx Metoprolol Tartrate [Lopressor] 25 mg PO BID #60 tab 02/10/21 03/25/21 Rx Budesonide [Pulmicort] 1 mg INHALATION RT-BID PRN 03/11/21 03/25/21 History Cyclobenzaprine [Flexeril] 5 mg PO TID PRN 03/11/21 03/25/21 History Mupirocin [Mupirocin 2%] 1 applic NASAL BID #1 tub 03/12/21 03/25/21 Rx Allergies Allergy/AdvReac Type Severity Reaction Status Date / Time aspirin AdvReac Unknown Rash/Hives Verified 03/25/21 09:28 Physical Exam Vitals: Vital Signs Temp Pulse Pulse Resp BP Pulse Ox 03/29/21 17:15 75 13 100 03/29/21 17:00 64 13 100 03/29/21 16:45 67 15 100 03/29/21 16:30 67 17 100 03/29/21 16:15 70 12 100 03/29/21 16:00 36.6 F L 69 16 100 03/29/21 15:45 70 17 100 03/29/21 15:30 69 20 83 L 03/29/21 15:15 69 15 100 03/29/21 15:00 69 16 100 03/29/21 14:45 70 15 100 03/29/21 14:30 70 17 100 03/29/21 14:15 70 16 100 03/29/21 14:00 70 12 100 03/29/21 13:45 70 12 100 03/29/21 13:30 69 12 100 03/29/21 13:28 56 L 03/29/21 13:22 50 L 03/29/21 13:15 52 L 12 100 03/29/21 13:00 51 L 12 100 03/29/21 12:45 52 L 12 03/29/21 06:01 98.3 F 61 18 147/65 98 Intake and Output 03/29/21 03/29/21 03/29/21 06:59 14:59 22:59 Intake Total 50 272.862 767.307 Output Total 2455 270 Balance 50 -2182.138 497.307 Intake: IV 50 239 737 Albumin Human 5% 250 ml 500 In Empty Bag 1 bag @ 250 mls/hr IVPB Q1HR PRN Rx#: [id number] CO/CI 60 60 Pressure Bag 27 27 Sodium Chloride 0.9% 1, 100 150 000 ml @ 50 mls/hr IV . Q20H EVE Rx#:[id number] Intake, IV Titration 33.862 30.307 Amount Clevidipine Butyrate 25 7.1 mg In Empty Bag 1 bag @ 1 MG/HR 2 mls/hr IV .Q24H EVE Rx#:[id number] Dexmedetomidine/0.9% NaCl 12.1 (Pmx) 400 mcg In Empty Bag 1 bag @ Titrate IV . Q0M EVE Rx#:[id number] Insulin Regular 100 unit 13.652 In Sodium Chloride 0.9% 100 ml @ Per Protocol IV .Q0M EVE Rx#:[id number] propofoL 1,000 mg In 26.762 4.555 Empty Bag 1 bag @ Titrate IV .Q0M EVE Rx#: [id number] Output: Chest Tube Drainage 380 150 Mediastinal/Left Pleural 150 60 Right Pleural 230 90 Urine 1175 120 Estimated Blood Loss 900 Other: Voiding Method Indwelling Catheter Indwelling Catheter Weight 94.9 kg ABP, PAP, CO, CI - Last 8 Hours Arterial Blood Pressure 128/60 Arterial Blood Pressure 114/49 Arterial Blood Pressure 113/49 Arterial Blood Pressure 113/53 Arterial Blood Pressure 108/45 Arterial Blood Pressure 122/50 Arterial Blood Pressure 77/36 Arterial Blood Pressure 171/62 Arterial Blood Pressure 132/53 Arterial Blood Pressure 101/42 Arterial Blood Pressure 111/45 Arterial Blood Pressure 111/46 Arterial Blood Pressure 108/45 Arterial Blood Pressure 139/57 Arterial Blood Pressure 97/42 Arterial Blood Pressure 136/54 Arterial Blood Pressure 79/79 Arterial Blood Pressure 128/56 Pulmonary Artery Pressure 32/20 Pulmonary Artery Pressure 27/16 Pulmonary Artery Pressure 26/11 Pulmonary Artery Pressure 24/13 Pulmonary Artery Pressure 31/13 Pulmonary Artery Pressure 29/12 Pulmonary Artery Pressure 29/12 Pulmonary Artery Pressure 35/11 Pulmonary Artery Pressure 34/13 Pulmonary Artery Pressure 34/12 Pulmonary Artery Pressure 38/14 Pulmonary Artery Pressure 37/15 Pulmonary Artery Pressure 36/16 Pulmonary Artery Pressure 33/15 Pulmonary Artery Pressure 36/17 Pulmonary Artery Pressure 35/17 Pulmonary Artery Pressure 37/16 Pulmonary Artery Pressure 34/17 Pulmonary Artery Pressure 34/16 Cardiac Output 5.9 Cardiac Output 5.6 Cardiac Output 5.6 Cardiac Output 5.1 Cardiac Output 4.2 Cardiac Output 4.3 Cardiac Index 2.8 Cardiac Index 2.7 Cardiac Index 2.7 Cardiac Index 2.4 Cardiac Index 2.0 Cardiac Index 2 Physical Exam revealed a 70-year-old white male intubated mechanically ventilated, presently on CPAP. Arousable, follows simple instructions only. Head: Atraumatic, normocephalic. Endotracheal tube and orogastric tube is intact. HEENT:[Neck is supple.] [No neck masses.] [No thyromegaly.] [No JVD.] Chest: [Clear throughout, no crackles, no rhonchi, no wheezes.] Cardiac Exam: [Normal S1 and S2, no S3 gallop, no murmur.] Abdomen: [Soft, nontender, no megaly, no rebound, no guarding, normal bowel sounds.] Extremities: [No clubbing, no edema, no cyanosis.] Neurological Exam: Arousable, follows simple instructions otherwise no further assessment could be done. Psychiatric: Could not be fully assessed. Patient is intubated and on CPAP. Skin: No rashes Results - Laboratory Findings CBC and BMP: 03/29/21 15:00 03/29/21 12:30 ABG ABG pH 7.36 (7.35-7.45) 03/29/21 17:16 ABG pCO2 39 mmHg (35-45) 03/29/21 17:16 ABG pO2 141 mmHg (83-108) H 03/29/21 17:16 ABG O2 Saturation 99.5 % (94-97) H 03/29/21 17:16 PT/INR, D-dimer PT 11.8 sec (9.0-12.0) 03/29/21 12:30 INR 1.1 (<1.2) 03/29/21 12:30 Abnormal lab findings: Abnormal Labs 03/11/21 03/25/21 03/29/21 09:00 09:04 06:10 WBC RBC Hgb Hct Plt Count Neutrophils # Monocytes # ABG pH ABG pCO2 ABG pO2 ABG Total CO2 ABG O2 Saturation Sodium Chloride Glucose POC Glucose (mg/dL) 119 H Calcium Magnesium Alkaline Phosphatase Total Protein Albumin Crossmatch See Detail See Detail 03/29/21 03/29/21 03/29/21 12:30 12:30 12:42 WBC 17.7 H RBC 3.57 L Hgb 10.5 L Hct 32.2 L Plt Count 142 L Neutrophils # 15.5 H Monocytes # ABG pH ABG pCO2 ABG pO2 ABG Total CO2 ABG O2 Saturation Sodium 134 L Chloride 110 H Glucose 107 H POC Glucose (mg/dL) 107 H Calcium 7.6 L Magnesium 2.9 H Alkaline Phosphatase 28 L Total Protein 4.3 L Albumin 2.3 L Crossmatch 03/29/21 03/29/21 03/29/21 13:01 14:09 15:00 WBC RBC Hgb Hct Plt Count Neutrophils # Monocytes # ABG pH 7.31 L ABG pCO2 50 H ABG pO2 361 H ABG Total CO2 27 H ABG O2 Saturation 100.0 H Sodium Chloride Glucose POC Glucose (mg/dL) 218 H 231 H Calcium Magnesium Alkaline Phosphatase Total Protein Albumin Crossmatch 03/29/21 03/29/21 03/29/21 15:00 16:04 17:06 WBC 26.6 H RBC 3.91 L Hgb 11.4 L Hct 35.5 L Plt Count Neutrophils # 24.1 H Monocytes # 1.2 H ABG pH ABG pCO2 ABG pO2 ABG Total CO2 ABG O2 Saturation Sodium Chloride Glucose POC Glucose (mg/dL) 191 H 158 H Calcium Magnesium Alkaline Phosphatase Total Protein Albumin Crossmatch 03/29/21 03/29/21 17:16 17:56 WBC RBC Hgb Hct Plt Count Neutrophils # Monocytes # ABG pH ABG pCO2 ABG pO2 141 H ABG Total CO2 ABG O2 Saturation 99.5 H Sodium Chloride Glucose POC Glucose (mg/dL) 142 H Calcium Magnesium Alkaline Phosphatase Total Protein Albumin Crossmatch - Diagnostic Findings Chest x-ray: image reviewed (As noted in HPI.) Assessment and Plan Assessment: Impression: Status post aortic valve replacement. Postoperative day #0. Severe aortic regurgitation and mild aortic stenosis. Chronic dyspnea on exertion. History of moderate persistent bronchial asthma. History of type 1 diabetes, on insulin pump. History of hypothyroidism. Dyslipidemia. History of GERD. History of hypertension. Recommendation: Continue patient on CPAP. And will extubated the patient shortly. After reviewing his CPAP ABG. Continue bronchodilators. Incentive spirometry post extubation. Resume his cardiac meds including aspirin statins and beta blockers. Early ambulation. Continue insulin presently on 4.5 units per hour. Continue Precedex while in the process of weaning and extubating the patient. We will continue to follow. Time with Patient: Greater than 30
[2021-03-29 18:21] LABS: Basophils % (A) 0 %; Eosinophils % (A) 0 %; HCT 30.1 % (39.0-53.0); Lymphocytes # (A) 0.7 k/uL (1.0-4.8); Lymphocytes % (A) 3 %; MCH 29.3 pg (25.0-35.0); MCHC 32.5 g/dL (31.0-37.0); MCV 90.1 fL (80.0-100.0); Mean Platelet Volume 7.5; Monocytes # (A) 1.6 k/uL (0-1.0); Monocytes % (A) 7 %; Neutrophils # (A) 20.6 k/uL (1.3-7.7); Neutrophils % (A) 89 %; Platelet Count 153 k/uL (150-450); RBC 3.34 m/uL (4.30-5.90); RDW 13.6 % (11.5-15.5); WBC 23.2 k/uL (3.8-10.6)
[2021-03-29 18:49] LABS: HGB 9.8 gm/dL (13.0-17.5)
[2021-03-29 19:04] LABS: Glucose,Whole Blood 110 mg/dL (75-99)
[2021-03-29 20:05] LABS: Glucose,Whole Blood 139 mg/dL (75-99)
[2021-03-29] MEDS: BUDESONIDE 1 MG/2 ML NEBU INHALATION SCH (20:55)
[2021-03-29 21:09] LABS: Glucose,Whole Blood 142 mg/dL (75-99)
[2021-03-29] MEDS: MUPIROCIN 2% OINT 22 GM TUBE NASAL SCH (21:43)
[2021-03-29] MEDS: ATORVASTATIN 40 MG TAB PO SCH (21:54)
[2021-03-29] MEDS: MONTELUKAST 10 MG TAB PO SCH (21:54)
--- NOTE | 2021-03-29 21:57 | OP ---
OPERATIVE REPORT DATE OF THE SURGERY: 03/29/2021. SURGEON: Dr. Clemencia Arauz FAMILY PRACTICE DOCTOR: Dannie Cason, Nurse practitioner, and Amanda VERGARA. PREOPERATIVE DIAGNOSES: Aortic valve disorder with predominant aortic valve regurgitation, insulin- dependent diabetes, hypertension, hyperlipidemia, asthma. POSTOPERATIVE DIAGNOSES: Aortic valve disorder with predominant aortic valve regurgitation, insulin- dependent diabetes, hypertension, hyperlipidemia, asthma. Evidence of a bicuspid aortic valve with incomplete fusion of the right and non coronary cusps. PROCEDURE PERFORMED: 1. Aortic valve replacement using a 25 mm pericardial bioprosthesis Inspirus. 2. Excision of the left atrial appendage using a 35 mm AtriClip. 3. Intraoperative transesophageal echocardiogram and epiaortic scanning. INDICATION FOR SURGERY: Patient is a 70-year-old gentleman with a symptomatic aortic valve disorder with predominant aortic valve regurgitation with mild to moderate left ventricular dysfunction. The patient is brought in today for aortic valve replacement as his valve is moderately calcified and certainly non repairable. The SDS risk was discussed with him. He understood it and agreed to proceed. DESCRIPTION OF THE PROCEDURE: The patient in supine position. Right internal jugular Randolph-Blayne catheter and a right radial arterial line were placed. PA pressure was 50/23. Cardiac index was 2.5. Subsequently he was brought to the operating room where general endotracheal anesthesia was induced uneventfully. A Oropeza catheter was inserted. He received 2 g of cefazolin intravenously. The chest, abdomen and both lower extremities were prepped and draped using ChloraPrep. Ioban was used to cover the skin. Transesophageal echocardiogram confirmed the preoperative finding of severe aortic valve regurgitation, moderate calcific changes of the aortic valve with some mild to moderate aortic valve stenosis. Left ventricle function was mild to moderate depressed and with mild dilatation of the left ventricle. No significant mitral valve regurgitation. Midline sternotomy was performed and the bone was profusely bleeding. Kristin was used. The right pleura had a breach in it and was drained with a 19-H[place]er Tony drain. Ankeney retractor was used. Mediastinal fat was dissected between 2 ties and epiaortic scanning revealed no protruding atheroma in the ascending aorta, which was of normal size. Pericardium was opened in an inverted T-fashion and a pericardial cradle was created. Findings included a normal soft aorta and normal size heart. After systemic heparinization after placement of respective pledgeted pursestring aortic cannulation with a 21-[place]er soft flow cannula in the distal ascending aorta and venous cannulation using a 3-stage 29-[place]er cannula via the right atrial appendage was performed. Antegrade as well as retrograde cardioplegia catheter were placed. Cardiopulmonary bypass was initiated. The patient temperature was allowed to drift down to 34 degrees Celsius. Subsequently the aorta was clamped and during aortic clamping, myocardial protection was achieved. An initial dose of around 500 mL of antegrade cold blood cardioplegia with adequate arrest at around 300 mL and at this point, we switched to retrograde in view of known aortic valve regurgitation and another 700 mL were given. All subsequent doses were given retrograde at 15 minute interval. The aorta was opened in a transverse fashion around 1 cm above the sinotubular junction. Exploration revealed a bicuspid aortic valve with incomplete fusion and calcified RFA between the right and non coronary cusps. The valve was excised to pliable anulus. Thorough irrigation performed with cold saline. The valve was sized to a 25 mm Inspirus which was selected. At this point, a total of 13 sutures of Tycron 2-0 pledgeted on the ventricular side were placed in a horizontal mattress fashion along the anulus. Those were passed symmetrically into the cuff of the bioprosthesis that seated nicely in a supra annular position. All the needles were cut and the suture tied using the cor knot device. Both coronary ostia were clear. Rewarming was started as we closed the aortotomy in 2 layers using Prolene 4-0 pledgeted on each corner with the first layer in a horizontal mattress fashion and the second layer in an over and over technique. The patient was given lidocaine and magnesium. He was placed in Trendelenburg and Trendelenburg position, and de- airing maneuvers were followed. Satisfied with de-airing, we unclamped the aorta as the aortic root vent was a maximum. The patient regained spontaneous sinus rhythm. After around 10-15 minutes of reperfusion, we were able to wean off cardiac bypass without the need of any inotropic or vasopressor support. We however initiated atrial pacing at 70 in view of the baseline sinus bradycardia. MIKAEL showed good functioning aortic valve with no paravalvular leak and no gradient. LV was unchanged. De-airing was adequate. With that,all pump suckers were stopped and test dose and full dose protamine was given. Decannulation followed. The venous cannulation site required reinforcement with a 4-0 Prolene. Two monopolar atrial pacing wires were affixed to the respective pursing of the right atrium. No ventricular pacing wire was placed. The aortotomy in the mid aspect anteriorly required two pledgeted mattress suture to control some needle hole bleeding that would not stop. Pericardium and pericardial fat were loosely approximated over the aorta and the heart. The left atrial appendage had been excluded, initially by deploying a 35 mm AtriClip at its base. After ensuring adequate hemostasis and hemodynamics and after correct sponge, instrument, and needle count, the sternum was closed using 5 [id number] pineal cable after interposing fibular between the sternal edges. Thorough irrigation with cefazolin followed. The rest of the closure proceeded in layers. Skin glue was applied. Patient did not receive any blood bank product but received 700 mL of Cell Saver blood. He was transferred to the ICU, atrially paced at 70 with a mean arterial pressure of 71. Pressure of 29/14. Cardiac index of 2.2 on no drips. MMODL / IJN: [id number] / [facility] MED[facility] CENTERDerik
[2021-03-29 22:08] LABS: Glucose,Whole Blood 136 mg/dL (75-99)
[2021-03-29 23:07] LABS: Glucose,Whole Blood 138 mg/dL (75-99)
[2021-03-30 00:06] LABS: Glucose,Whole Blood 116 mg/dL (75-99)
[2021-03-30] MEDS: HEPARIN SODIUM,PORCINE/PF 5,000 UNIT/0.5 ML SYRINGE SQ SCH ×3 (00:33→17:34)
[2021-03-30 01:09] LABS: Glucose,Whole Blood 99 mg/dL (75-99)
[2021-03-30 02:11] LABS: Glucose,Whole Blood 143 mg/dL (75-99)
[2021-03-30 03:11] LABS: Glucose,Whole Blood 143 mg/dL (75-99)
[2021-03-30 04:05] LABS: Glucose,Whole Blood 140 mg/dL (75-99)
[2021-03-30] MEDS: HYDROcodone/APAP 5-325MG 1 EACH TAB PO PRN ×3 (04:05→12:16)
[2021-03-30 04:30] LABS: Basophils % (A) 0 %; Eosinophils % (A) 0 %; HCT 30.8 % (39.0-53.0); HGB 10.1 gm/dL (13.0-17.5); Lymphocytes # (A) 0.7 k/uL (1.0-4.8); Lymphocytes % (A) 4 %; MCH 29.4 pg (25.0-35.0); MCHC 32.8 g/dL (31.0-37.0); MCV 89.8 fL (80.0-100.0); Mean Platelet Volume 8.2; Monocytes # (A) 1.1 k/uL (0-1.0); Monocytes % (A) 7 %; Neutrophils # (A) 14.3 k/uL (1.3-7.7); Neutrophils % (A) 88 %; Platelet Count 149 k/uL (150-450); RBC 3.43 m/uL (4.30-5.90); RDW 13.9 % (11.5-15.5); WBC 16.2 k/uL (3.8-10.6)
[2021-03-30 04:39] LABS: Ionized Calcium 4.9 mg/dL (4.5-5.3)
[2021-03-30 04:49] LABS: ALT 12 U/L (4-49); AST 30 U/L (17-59); African American GFR (CKD) >90 (>60 ml/min/1.73 sqM); Albumin 2.8 g/dL (3.5-5.0); Alkaline Phosphatase 33 U/L (38-126); Blood Urea Nitrogen 24 mg/dL (9-20); Calcium 7.7 mg/dL (8.4-10.2); Carbon Dioxide 19 mmol/L (22-30); Glucose 134 mg/dL (74-99); Magnesium 2.4 mg/dL (1.6-2.3); Non-African American GFR(CKD) >90 (>60 ml/min/1.73 sqM); Total Bilirubin 0.6 mg/dL (0.2-1.3); Total Protein 4.7 g/dL (6.3-8.2)
[2021-03-30 05:10] LABS: Glucose,Whole Blood 119 mg/dL (75-99)
[2021-03-30 05:35] LABS: Anion Gap 5 mmol/L; Chloride 109 mmol/L (98-107); Potassium 5.1 mmol/L (3.5-5.1); Sodium 133 mmol/L (137-145)
[2021-03-30] MEDS: ALBUMIN HUMAN 5% 250 ML in EMPTY BAG 1 BAG IVPB PRN (06:23)
[2021-03-30 06:33] LABS: Glucose,Whole Blood 108 mg/dL (75-99)
[2021-03-30] MEDS: LEVOTHYROXINE 75 MCG TAB PO SCH (06:36)
[2021-03-30 07:15] LABS: Glucose,Whole Blood 121 mg/dL (75-99)
--- NOTE | 2021-03-30 07:25 | P.CONS ---
History of Present Illness - Reason for Consult Consult date: 03/29/21 Post aortic valve placement, medical management, type 1 diabetes Requesting physician: Clemencia Arauz - Chief Complaint Post aortic valve placement - History of Present Illness HISTORY OF PRESENT ILLNESS [age]-year-old male one of Dr. Marcano patient with past medical history of type 1 diabetes on insulin pump who had history of asthma seen Dr. Harry chapa on regular basis, known to have history of hypertension hyperlipidemia and hypothyroidism who was hospitalized in February 07 to 02/10/2021 for worsening dyspnea and shortness of breath ended up going for further workup including heart catheter and transthoracic echocardiogram and process is Optigene echocardiogram findings were consistent with severe aortic stenosis with no major coronary artery involvement. Patient ended up seeing cardiothoracic surgeon Dr. Torres and plan to do an elective aortic valve placement which was done successfully, patient was on mechanical ventilation for sure. Of time and was weaned off shortly after he seen pulmonary ready. His blood sugar has been better controlled currently with insulin drip which will be continued this point until patient is able to take oral intake with switch him to insulin pump. Patient otherwise stable hemodynamically doing well he is maintaining his on airway on the hardly any vasopressor. REVIEW OF SYSTEMS Constitutional: No fever, no chills, no night sweats. No weight change. No weakness, fatigue or lethargy. No daytime sleepiness. EENT: No headache. No blurred vision or double vision, no loss of vision. No loss of Hearing, no ringing in the ears, no dizziness. No nasal drainage or congestion. No epistaxis. No sore throat. Lungs: Post extubation from open heart surgery, still have 3 chest tube at this point patient is awake able to maintain his on airway No shortness of breath, cough, no sputum production. No wheezing. Cardiovascular: Had open heart surgery for aortic valve placement and left atrial appendage so far no complication no arrhythmia, no lower extremity edema. No palpitations. Abdominal: No abdominal pain. No nausea, vomiting. No diarrhea. No co nstipation. No bloody or tarry stools.. No loss of appetite. Genitourinary: No dysuria, increased frequency, urgency. No urinary retention. Musculoskeletal: No myalgias. No muscle weakness, no gait dysfunction, no frequent falls. No back pain. No neck pain. Integumentary: No wounds, no lesions. No rash or pruritus. No unusual bruising. No change in hair or nails. Neurologic: No aphasia. No facial droop. No change in mentation. No head injury. No headache. No paralysis. No paresthesia. Psychiatric: No depression. No anxiety. No mood swings. Endocrine: No abnormal blood sugars. No weight change. No excessive sweating or thirst. No cold intolerance. SOCIAL HISTORY Patient never smoked, no alcohol abuse, no drug abuse. FAMILY HISTORY His father had an CO, mother from lung cancer at age 79, patient had 1 brother who has Parkinson disease, another one from subdural hematoma. PHYSICAL EXAMINATION Gen: This is a 70-year-old laying in bed in ICU shortly after his extubation looking good is able to maintain his on airway does not look in any pain and is not on much pressure this point still on insulin drip. HEENT: Head is atraumatic, normocephalic. Pupils equal, round. Sclerae is anic teric. NECK: Supple. No JVD. No lymphadenopathy. No thyromegaly. LUNGS: His 3 chest tube at this point, decreased breath sound in the left side no rhonchi crackles or wheezes. HEART: Regular rate and rhythm. No murmur. ABDOMEN: Soft. Bowel sounds are present. No masses. No tenderness. EXTREMITIES: No pedal edema. No calf tenderness. NEUROLOGICAL: Patient is awake, alert and oriented x3. Cranial nerves 2 through 12 are grossly intact. ASSESSMENT AND PLAN 1. Post aortic valve placement and left at 2 appendage: Stable so far continue post surgical care patient was extubated watch for any arrhythmia continue insulin drip at this point watch patient hemodynamic status carefully. 2 type 1 diabetes: Patient is on insulin pump was switched to insulin drip at this point will continue to keep his blood sugar below 120 switch patient to insulin pump when he is able to take oral intake. 3 hypertension: Was on losartan and will be on smaller dose of metoprolol as well. 4 hyperlipidemia: Continue patient on atorvastatin 40 mg daily. 5 history of asthma: Patient seen pulmonary on regular basis and was on Pulmicort and Ventolin inhaler with continue nebulizer management as well this point. Patient is still on Singulair 10 mg a day which will be resumed. 6 hypothyroidism: Has been on levothyroxine 150 g daily resume medication. 7 severe GERD/GI prophylaxis: Patient will be continued on Pepcid 20 mg twice a day. 8 DVT prophylaxis: Continue patient on heparin 5000 units subcutaneous [address] Torres thank you very much for the consult if I can be any further help to please let me know. Past Medical History Past Medical History: Asthma, Diabetes Mellitus, GERD/Reflux, Hyperlipidemia, Hypertension, Osteoarthritis (OA), Skin Disorder, Thyroid Disorder Additional Past Medical History / Comment(s): Moderate persistant asthma, IDDM type I- insulin pump and subcutaneous diabetic sensor, hypothyroidism, vitiligo for 17 years, seasonal allergic rhinitis, right foot drop secondary to pelvic fracture, SOB w/exertion, recent flare up w/athma, finished A/B & steroids, feeling much better History of Any Multi-Drug Resistant Organisms: None Reported Past Surgical History: Heart Catheterization, Orthopedic Surgery Additional Past Surgical History / Comment(s): reconstruction of pelvis (Feb 2011), bilateral hands tendon release in fingers (2002), Arthoscopic in right knee (1996), steel rodrigo in great toe of right foot (1997), bilateral arthroscopic elbow surgery, left elbow radial nerve release, ORIF left ankle Past Anesthesia/Blood Transfusion Reactions: Postoperative Nausea & Vomiting (PONV) Additional Past Anesthesia/Blood Transfusion Reaction / Comm: Only after the tendon release in fingers, never had blood transfusion Smoking Status: Never smoker - Past Family History Father Family Medical History: Myocardial Infarction (CO) Additional Family Medical History / Comment(s): had in 1972 Mother Family Medical History: Asthma, Cancer, Thyroid Disorder Additional Family Medical History / Comment(s): lung cancer (diagnosed when she was 79) Brother(s) Family Medical History: CVA/TIA, Neurologic Disorder Additional Family Medical History / Comment(s): parkinson's disease, subdural hematoma. Brother is . Sister(s) Family Medical History: No Reported History Daughter(s) Family Medical History: No Reported History Son(s) Family Medical History: No Reported History Medications and Allergies Home Medications Medication Instructions Recorded Confirmed Type Albuterol Sulfate [Proair Hfa] 2 puff INHALATION RT-Q6H PRN 12/16/13 03/25/21 History Atorvastatin Calcium [Lipitor] 40 mg PO HS 12/16/13 03/25/21 History Montelukast Sodium [Singulair] 10 mg PO HS 12/16/13 03/25/21 History traZODone HCL [Desyrel] 100 mg PO HS PRN 09/26/14 03/25/21 History Insulin Aspart (For Pump) [NovoLOG 0.01 unit SQ-PUMP CONTINUOUS 02/06/17 03/25/21 History (For Pump)] Levothyroxine Sodium [Synthroid] 150 mcg PO DAILY 02/06/17 03/25/21 History Ascorbic Acid [Vitamin C] 500 mg PO DAILY 11/24/20 03/25/21 History Famotidine [Pepcid] 20 mg PO BID 11/24/20 03/25/21 History HYDROcodone/APAP 5-325MG [[place] 1 tab PO QID PRN 11/24/20 03/25/21 History 5-325] Aspirin EC [Ecotrin Low Dose] 81 mg PO DAILY 02/07/21 03/25/21 History Levalbuterol Tartrate 1 puff INHALATION RT-BID PRN 02/07/21 03/25/21 History [Levalbuterol Tartrate 45 MCG Hfa] Fluticasone/Vilanterol [Breo 1 puff INHALATION RT-DAILY #0 02/10/21 03/25/21 Rx Ellipta 100-25 Mcg Inhaler] Furosemide [Lasix] 20 mg PO BID@0900,1600 #60 tab 02/10/21 03/25/21 Rx Losartan [Cozaar] 50 mg PO DAILY #30 tab 02/10/21 03/25/21 Rx Metoprolol Tartrate [Lopressor] 25 mg PO BID #60 tab 02/10/21 03/25/21 Rx Budesonide [Pulmicort] 1 mg INHALATION RT-BID PRN 03/11/21 03/25/21 History Cyclobenzaprine [Flexeril] 5 mg PO TID PRN 03/11/21 03/25/21 History Mupirocin [Mupirocin 2%] 1 applic NASAL BID #1 tub 03/12/21 03/25/21 Rx Allergies Allergy/AdvReac Type Severity Reaction Status Date / Time aspirin AdvReac Unknown Rash/Hives Verified 03/25/21 09:28 Physical Exam Vitals: Vital Signs Temp Pulse Resp BP Pulse Ox 03/30/21 06:00 81 33 H 132/76 95 03/30/21 05:00 77 27 H 126/82 97 03/30/21 04:00 75 22 109/59 97 03/30/21 03:00 75 24 107/61 98 03/30/21 02:00 76 25 H 118/66 98 03/30/21 01:00 76 21 120/67 100 03/30/21 00:00 75 17 124/70 99 03/29/21 23:00 75 17 120/70 98 03/29/21 22:00 75 25 H 125/71 97 03/29/21 21:11 78 03/29/21 21:00 75 16 119/68 100 03/29/21 20:58 76 03/29/21 20:00 75 20 125/67 100 03/29/21 19:00 75 19 99 03/29/21 18:45 75 17 98 03/29/21 18:30 75 17 98 03/29/21 18:15 75 20 97 03/29/21 18:00 75 16 98 03/29/21 17:45 75 23 99 03/29/21 17:30 75 15 100 03/29/21 17:15 75 13 100 03/29/21 17:00 64 13 100 03/29/21 16:45 67 15 100 03/29/21 16:30 67 17 100 03/29/21 16:15 70 12 100 03/29/21 16:00 36.6 F L 69 16 100 03/29/21 15:45 70 17 100 03/29/21 15:30 69 20 83 L 03/29/21 15:15 69 15 100 03/29/21 15:00 69 16 100 03/29/21 14:45 70 15 100 03/29/21 14:30 70 17 100 03/29/21 14:15 70 16 100 03/29/21 14:00 70 12 100 03/29/21 13:45 70 12 100 03/29/21 13:30 69 12 100 03/29/21 13:28 56 L 03/29/21 13:22 50 L 03/29/21 13:15 52 L 12 100 03/29/21 13:00 51 L 12 100 03/29/21 12:45 52 L 12 Intake and Output 03/29/21 03/30/21 03/30/21 22:59 06:59 14:59 Intake Total 1396.375 755.947 Output Total 743 558 Balance 653.375 197.947 Intake: IV 1312 742 ACETAMINOPHEN IV (For NPO 100 ) 1,000 mg In Empty Bag 1 bag @ 400 mls/hr IVPB Q6H EVE Rx#:[id number] Albumin Human 5% 250 ml 500 In Empty Bag 1 bag @ 250 mls/hr IVPB Q1HR PRN Rx#: [id number] CO/CI 190 220 Pressure Bag 72 72 Sodium Chloride 0.9% 1, 400 400 000 ml @ 50 mls/hr IV . Q20H EVE Rx#:[id number] ceFAZolin 2 gm In Sodium 50 50 Chloride 0.9% 50 ml @ 100 mls/hr IVPB Q8HR EVE Rx# :[id number] Intake, IV Titration 84.375 13.947 Amount Dexmedetomidine/0.9% NaCl 56.387 (Pmx) 400 mcg In Empty Bag 1 bag @ Titrate IV . Q0M EVE Rx#:[id number] Insulin Regular 100 unit 23.433 13.947 In Sodium Chloride 0.9% 100 ml @ Per Protocol IV .Q0M EVE Rx#:[id number] propofoL 1,000 mg In 4.555 Empty Bag 1 bag @ Titrate IV .Q0M EVE Rx#: [id number] Output: Chest Tube Drainage 390 270 Mediastinal/Left Pleural 210 60 Right Pleural 180 210 Urine 353 288 Other: Voiding Method Indwelling Catheter Indwelling Catheter Weight 114.1 kg ABP, PAP, CO, CI - Last 8 Hours Arterial Blood Pressure 108/46 Arterial Blood Pressure 163/64 Arterial Blood Pressure 125/60 Arterial Blood Pressure 130/47 Arterial Blood Pressure 131/54 Arterial Blood Pressure 127/60 Pulmonary Artery Pressure 29/10 Pulmonary Artery Pressure 38/17 Pulmonary Artery Pressure 38/16 Pulmonary Artery Pressure 35/12 Pulmonary Artery Pressure 38/15 Pulmonary Artery Pressure 28/9 Pulmonary Artery Pressure 26/10 Cardiac Output 4.6 Cardiac Output 4.6 Cardiac Output 5.2 Cardiac Output 6.1 Cardiac Output 5.3 Cardiac Output 4.8 Cardiac Output 4.9 Cardiac Index 2.2 Cardiac Index 2.2 Cardiac Index 2.5 Cardiac Index 2.9 Cardiac Index 2.5 Cardiac Index 2.3 Cardiac Index 2.3 Results CBC & Chem 7: 03/30/21 04:05 11/16/21 04:30 Labs: Abnormal Lab Results - Last 24 Hours (Table) 03/25/21 03/29/21 03/29/21 Range/Units 09:04 12:30 12:30 WBC 17.7 H (3.8-10.6) k/uL RBC 3.57 L (4.30-5.90) m/uL Hgb 10.5 L (13.0-17.5) gm/dL Hct 32.2 L (39.0-53.0) % Plt Count 142 L (150-450) k/uL Neutrophils # 15.5 H (1.3-7.7) k/uL Lymphocytes # (1.0-4.8) k/uL Monocytes # (0-1.0) k/uL ABG pH (7.35-7.45) ABG pCO2 (35-45) mmHg ABG pO2 (83-108) mmHg ABG Total CO2 (19-24) mmol/L ABG O2 Saturation (94-97) % Sodium 134 L (137-145) mmol/L Chloride 110 H (98-107) mmol/L Carbon Dioxide (22-30) mmol/L BUN (9-20) mg/dL Glucose 107 H (74-99) mg/dL POC Glucose (mg/dL) (75-99) mg/dL Calcium 7.6 L (8.4-10.2) mg/dL Magnesium 2.9 H (1.6-2.3) mg/dL Alkaline Phosphatase 28 L (38-126) U/L Total Protein 4.3 L (6.3-8.2) g/dL Albumin 2.3 L (3.5-5.0) g/dL Crossmatch See Detail 03/29/21 03/29/21 03/29/21 Range/Units 12:42 13:01 14:09 WBC (3.8-10.6) k/uL RBC (4.30-5.90) m/uL Hgb (13.0-17.5) gm/dL Hct (39.0-53.0) % Plt Count (150-450) k/uL Neutrophils # (1.3-7.7) k/uL Lymphocytes # (1.0-4.8) k/uL Monocytes # (0-1.0) k/uL ABG pH 7.31 L (7.35-7.45) ABG pCO2 50 H (35-45) mmHg ABG pO2 361 H (83-108) mmHg ABG Total CO2 27 H (19-24) mmol/L ABG O2 Saturation 100.0 H (94-97) % Sodium (137-145) mmol/L Chloride (98-107) mmol/L Carbon Dioxide (22-30) mmol/L BUN (9-20) mg/dL Glucose (74-99) mg/dL POC Glucose (mg/dL) 107 H 218 H (75-99) mg/dL Calcium (8.4-10.2) mg/dL Magnesium (1.6-2.3) mg/dL Alkaline Phosphatase (38-126) U/L Total Protein (6.3-8.2) g/dL Albumin (3.5-5.0) g/dL Crossmatch 03/29/21 03/29/21 03/29/21 Range/Units 15:00 15:00 16:04 WBC 26.6 H (3.8-10.6) k/uL RBC 3.91 L (4.30-5.90) m/uL Hgb 11.4 L (13.0-17.5) gm/dL Hct 35.5 L (39.0-53.0) % Plt Count (150-450) k/uL Neutrophils # 24.1 H (1.3-7.7) k/uL Lymphocytes # (1.0-4.8) k/uL Monocytes # 1.2 H (0-1.0) k/uL ABG pH (7.35-7.45) ABG pCO2 (35-45) mmHg ABG pO2 (83-108) mmHg ABG Total CO2 (19-24) mmol/L ABG O2 Saturation (94-97) % Sodium (137-145) mmol/L Chloride (98-107) mmol/L Carbon Dioxide (22-30) mmol/L BUN (9-20) mg/dL Glucose (74-99) mg/dL POC Glucose (mg/dL) 231 H 191 H (75-99) mg/dL Calcium (8.4-10.2) mg/dL Magnesium (1.6-2.3) mg/dL Alkaline Phosphatase (38-126) U/L Total Protein (6.3-8.2) g/dL Albumin (3.5-5.0) g/dL Crossmatch 03/29/21 03/29/21 03/29/21 Range/Units 17:06 17:16 17:55 WBC 23.2 H (3.8-10.6) k/uL RBC 3.34 L (4.30-5.90) m/uL Hgb 9.8 L D (13.0-17.5) gm/dL Hct 30.1 L (39.0-53.0) % Plt Count (150-450) k/uL Neutrophils # 20.6 H (1.3-7.7) k/uL Lymphocytes # 0.7 L (1.0-4.8) k/uL Monocytes # 1.6 H (0-1.0) k/uL ABG pH (7.35-7.45) ABG pCO2 (35-45) mmHg ABG pO2 141 H (83-108) mmHg ABG Total CO2 (19-24) mmol/L ABG O2 Saturation 99.5 H (94-97) % Sodium (137-145) mmol/L Chloride (98-107) mmol/L Carbon Dioxide (22-30) mmol/L BUN (9-20) mg/dL Glucose (74-99) mg/dL POC Glucose (mg/dL) 158 H (75-99) mg/dL Calcium (8.4-10.2) mg/dL Magnesium (1.6-2.3) mg/dL Alkaline Phosphatase (38-126) U/L Total Protein (6.3-8.2) g/dL Albumin (3.5-5.0) g/dL Crossmatch 03/29/21 03/29/21 03/29/21 Range/Units 17:56 19:03 20:04 WBC (3.8-10.6) k/uL RBC (4.30-5.90) m/uL Hgb (13.0-17.5) gm/dL Hct (39.0-53.0) % Plt Count (150-450) k/uL Neutrophils # (1.3-7.7) k/uL Lymphocytes # (1.0-4.8) k/uL Monocytes # (0-1.0) k/uL ABG pH (7.35-7.45) ABG pCO2 (35-45) mmHg ABG pO2 (83-108) mmHg ABG Total CO2 (19-24) mmol/L ABG O2 Saturation (94-97) % Sodium (137-145) mmol/L Chloride (98-107) mmol/L Carbon Dioxide (22-30) mmol/L BUN (9-20) mg/dL Glucose (74-99) mg/dL POC Glucose (mg/dL) 142 H 110 H 139 H (75-99) mg/dL Calcium (8.4-10.2) mg/dL Magnesium (1.6-2.3) mg/dL Alkaline Phosphatase (38-126) U/L Total Protein (6.3-8.2) g/dL Albumin (3.5-5.0) g/dL Crossmatch 03/29/21 03/29/21 03/29/21 Range/Units 21:07 22:07 23:05 WBC (3.8-10.6) k/uL RBC (4.30-5.90) m/uL Hgb (13.0-17.5) gm/dL Hct (39.0-53.0) % Plt Count (150-450) k/uL Neutrophils # (1.3-7.7) k/uL Lymphocytes # (1.0-4.8) k/uL Monocytes # (0-1.0) k/uL ABG pH (7.35-7.45) ABG pCO2 (35-45) mmHg ABG pO2 (83-108) mmHg ABG Total CO2 (19-24) mmol/L ABG O2 Saturation (94-97) % Sodium (137-145) mmol/L Chloride (98-107) mmol/L Carbon Dioxide (22-30) mmol/L BUN (9-20) mg/dL Glucose (74-99) mg/dL POC Glucose (mg/dL) 142 H 136 H 138 H (75-99) mg/dL Calcium (8.4-10.2) mg/dL Magnesium (1.6-2.3) mg/dL Alkaline Phosphatase (38-126) U/L Total Protein (6.3-8.2) g/dL Albumin (3.5-5.0) g/dL Crossmatch 03/30/21 03/30/21 03/30/21 Range/Units 00:05 02:08 03:07 WBC (3.8-10.6) k/uL RBC (4.30-5.90) m/uL Hgb (13.0-17.5) gm/dL Hct (39.0-53.0) % Plt Count (150-450) k/uL Neutrophils # (1.3-7.7) k/uL Lymphocytes # (1.0-4.8) k/uL Monocytes # (0-1.0) k/uL ABG pH (7.35-7.45) ABG pCO2 (35-45) mmHg ABG pO2 (83-108) mmHg ABG Total CO2 (19-24) mmol/L ABG O2 Saturation (94-97) % Sodium (137-145) mmol/L Chloride (98-107) mmol/L Carbon Dioxide (22-30) mmol/L BUN (9-20) mg/dL Glucose (74-99) mg/dL POC Glucose (mg/dL) 116 H 143 H 143 H (75-99) mg/dL Calcium (8.4-10.2) mg/dL Magnesium (1.6-2.3) mg/dL Alkaline Phosphatase (38-126) U/L Total Protein (6.3-8.2) g/dL Albumin (3.5-5.0) g/dL Crossmatch 03/30/21 03/30/21 03/30/21 Range/Units 04:02 04:05 04:30 WBC 16.2 H (3.8-10.6) k/uL RBC 3.43 L (4.30-5.90) m/uL Hgb 10.1 L (13.0-17.5) gm/dL Hct 30.8 L (39.0-53.0) % Plt Count 149 L (150-450) k/uL Neutrophils # 14.3 H (1.3-7.7) k/uL Lymphocytes # 0.7 L (1.0-4.8) k/uL Monocytes # 1.1 H (0-1.0) k/uL ABG pH (7.35-7.45) ABG pCO2 (35-45) mmHg ABG pO2 (83-108) mmHg ABG Total CO2 (19-24) mmol/L ABG O2 Saturation (94-97) % Sodium 133 L (137-145) mmol/L Chloride 109 H (98-107) mmol/L Carbon Dioxide 19 L (22-30) mmol/L BUN 24 H (9-20) mg/dL Glucose 134 H (74-99) mg/dL POC Glucose (mg/dL) 140 H (75-99) mg/dL Calcium 7.7 L (8.4-10.2) mg/dL Magnesium 2.4 H (1.6-2.3) mg/dL Alkaline Phosphatase 33 L (38-126) U/L Total Protein 4.7 L (6.3-8.2) g/dL Albumin 2.8 L (3.5-5.0) g/dL Crossmatch 03/30/21 03/30/21 Range/Units 05:07 06:32 WBC (3.8-10.6) k/uL RBC (4.30-5.90) m/uL Hgb (13.0-17.5) gm/dL Hct (39.0-53.0) % Plt Count (150-450) k/uL Neutrophils # (1.3-7.7) k/uL Lymphocytes # (1.0-4.8) k/uL Monocytes # (0-1.0) k/uL ABG pH (7.35-7.45) ABG pCO2 (35-45) mmHg ABG pO2 (83-108) mmHg ABG Total CO2 (19-24) mmol/L ABG O2 Saturation (94-97) % Sodium (137-145) mmol/L Chloride (98-107) mmol/L Carbon Dioxide (22-30) mmol/L BUN (9-20) mg/dL Glucose (74-99) mg/dL POC Glucose (mg/dL) 119 H 108 H (75-99) mg/dL Calcium (8.4-10.2) mg/dL Magnesium (1.6-2.3) mg/dL Alkaline Phosphatase (38-126) U/L Total Protein (6.3-8.2) g/dL Albumin (3.5-5.0) g/dL Crossmatch
[2021-03-30] MEDS ORDERED: FUROSEMIDE 10 MG/ML 2 ML VIAL IV STA (07:36)
--- NOTE | 2021-03-30 07:56 | P.PN ---
Subjective Progress Note Date: 03/30/21 Principal diagnosis: Aortic valve disorder with predominant aortic valve regurgitation, evidence of bicuspid aortic valve with incomplete fusion of right and non-coronary cusps. P revious medical history of hypertension, hyperlipidemia, Type 1 insulin- dependent diabetes, asthma with recent exacerbation treated with steroids, hypothyroid, GERD and family history of premature coronary artery disease with father from myocardial infarction at 56 years old. Preoperative nasal screen positive for MSSA POD #1 aortic valve replacement using a 25 mm Inspiris pericardial bioprosthesis, exclusion of the left atrial appendage using a 35 mm AtriClip, intraoperative transesophageal echocardiogram and epi-aortic scanning Postoperative acute blood loss anemia and thrombocytopenia, expected given hemodilution, cardiopulmonary bypass pump The patient was seen and examined this morning sitting up in a recliner in the intensive care unit in no acute distress. He was successfully extubated last night at 17:40. Complains of post surgical pain mostly controlled with current medication regimen, denies shortness of breath. Currently in sinus rhythm with occasional PVCs, hemodynamically stable on no inotropes or pressors. Right internal jugular [place], left radial arterial line, mediastinal/right pleural chest tubes all remain. No other new concerns. Objective - Vital Signs Vital signs: Vital Signs Temp 36.6 F L 03/29/21 16:00 Pulse 86 03/30/21 07:00 Resp 29 H 03/30/21 07:00 BP 132/63 03/30/21 07:00 Pulse Ox 97 03/30/21 07:00 Intake & Output 03/29/21 03/30/21 03/30/21 18:59 06:59 18:59 Intake Total 1024.286 0903.015 99 Output Total 2780 976 125 Balance -1510.831 180.015 -26 Weight 114.1 kg Intake: IV 1205 1088 99 ACETAMINOPHEN IV (For NPO 100 ) 1,000 mg In Empty Bag 1 bag @ 400 mls/hr IVPB Q6H [facility] Rx#:[id number] Albumin Human 5% 250 ml 500 In Empty Bag 1 bag @ 250 mls/hr IVPB Q1HR PRN Rx#: [id number] CO/CI 140 330 40 Pressure Bag 63 108 9 Sodium Chloride 0.9% 1, 300 600 50 000 ml @ 20 mls/hr IV . Q24H [facility] Rx#:[id number] ceFAZolin 2 gm In Sodium 50 50 Chloride 0.9% 50 ml @ 100 mls/hr IVPB Q8HR [facility] Rx# :[id number] Intake, IV Titration 64.169 68.015 Amount Clevidipine Butyrate 25 7.1 mg In Empty Bag 1 bag @ 1 MG/HR 2 mls/hr IV .Q24H [facility] Rx#:[id number] Dexmedetomidine/0.9% NaCl 12.1 44.287 (Pmx) 400 mcg In Empty Bag 1 bag @ Titrate IV . Q0M [facility] Rx#:[id number] Insulin Regular 100 unit 13.652 23.728 In Sodium Chloride 0.9% 100 ml @ Per Protocol IV .Q0M [facility] Rx#:[id number] propofoL 1,000 mg In 31.317 Empty Bag 1 bag @ Titrate IV .Q0M [facility] Rx#: [id number] Output: Chest Tube Drainage 550 490 110 Mediastinal/Left Pleural 210 210 0 Right Pleural 340 280 110 Urine 1330 486 15 Estimated Blood Loss 900 Other: Voiding Method Indwelling Catheter Indwelling Catheter ABP, PAP, CO, CI - Last Documented Arterial Blood Pressure 140/63 Pulmonary Artery Pressure 38/20 Cardiac Output 5.5 Cardiac Index 2.6 - Exam CONSTITUTIONAL: Appears comfortable, cooperative, no acute distress RESPIRATORY: Lungs sounds diminished bilaterally. Respirations even, nonlabored. Currently on 2 L nasal cannula with oxygen saturation 95%. Able to achieve 1000 mL on incentive spirometry. Strong cough. CARDIOVASCULAR: S1, S2 present. Regular rate and rhythm, sinus rhythm on telemetry. Sternum stable. Palpable peripheral pulses bilaterally. No edema present. No calf pain or tenderness noted. Heart hugger in place with patient demonstrating appropriate use. Antiembolism stockings, SCDs present. GASTROINTESTINAL: Abdomen soft, nontender, nondistended. Hypoactive bowel sounds present 4 quadrants. Tolerating clear liquids. GENITOURINARY: Oropeza present draining clear, yellow urine. Output overnight 25-45 mL per hour INTEGUMENTARY: Skin is warm and dry with evidence of good perfusion. Anterior chest incision well approximated and covered with dry intact dressing. NEUROLOGIC: Cranial nerves II through XII intact MUSKULOSKELETAL: Able to move all extremities, strength equal bilaterally, gait normal PSYCHIATRIC: Alert and oriented to person place and time, appropriate affect, intact judgment and insight INVASIVE LINES AND TUBES: Mediastinal/right pleural chest tubes present and connected to wall suction, no air leaks present. Mediastinal tube with 60 mL serosanguineous drainage overnight, 450 mL since surgery. Right pleural chest tube with 320 mL serosanguineous drainage overnight, 700 mL since surgery. Atrial epicardial pacemaker wires present, connected to generator, backup rate 50 bpm. Right internal jugular [place], left radial arterial line present. Last CO/CI 5.5/2.6, PA 38/20, CVP 13. - Allied health notes Allied health notes reviewed: nursing - Labs CBC & Chem 7: 03/30/21 04:05 03/30/21 04:30 Labs: Abnormal Lab Results - Last 24 Hours (Table) 03/25/21 03/29/21 03/29/21 Range/Units 09:04 12:30 12:30 WBC 17.7 H (3.8-10.6) k/uL RBC 3.57 L (4.30-5.90) m/uL Hgb 10.5 L (13.0-17.5) gm/dL Hct 32.2 L (39.0-53.0) % Plt Count 142 L (150-450) k/uL Neutrophils # 15.5 H (1.3-7.7) k/uL Lymphocytes # (1.0-4.8) k/uL Monocytes # (0-1.0) k/uL ABG pH (7.35-7.45) ABG pCO2 (35-45) mmHg ABG pO2 (83-108) mmHg ABG Total CO2 (19-24) mmol/L ABG O2 Saturation (94-97) % Sodium 134 L (137-145) mmol/L Chloride 110 H (98-107) mmol/L Carbon Dioxide (22-30) mmol/L BUN (9-20) mg/dL Glucose 107 H (74-99) mg/dL POC Glucose (mg/dL) (75-99) mg/dL Calcium 7.6 L (8.4-10.2) mg/dL Magnesium 2.9 H (1.6-2.3) mg/dL Alkaline Phosphatase 28 L (38-126) U/L Total Protein 4.3 L (6.3-8.2) g/dL Albumin 2.3 L (3.5-5.0) g/dL Crossmatch See Detail 03/29/21 03/29/21 03/29/21 Range/Units 12:42 13:01 14:09 WBC (3.8-10.6) k/uL RBC (4.30-5.90) m/uL Hgb (13.0-17.5) gm/dL Hct (39.0-53.0) % Plt Count (150-450) k/uL Neutrophils # (1.3-7.7) k/uL Lymphocytes # (1.0-4.8) k/uL Monocytes # (0-1.0) k/uL ABG pH 7.31 L (7.35-7.45) ABG pCO2 50 H (35-45) mmHg ABG pO2 361 H (83-108) mmHg ABG Total CO2 27 H (19-24) mmol/L ABG O2 Saturation 100.0 H (94-97) % Sodium (137-145) mmol/L Chloride (98-107) mmol/L Carbon Dioxide (22-30) mmol/L BUN (9-20) mg/dL Glucose (74-99) mg/dL POC Glucose (mg/dL) 107 H 218 H (75-99) mg/dL Calcium (8.4-10.2) mg/dL Magnesium (1.6-2.3) mg/dL Alkaline Phosphatase (38-126) U/L Total Protein (6.3-8.2) g/dL Albumin (3.5-5.0) g/dL Crossmatch 03/29/21 03/29/21 03/29/21 Range/Units 15:00 15:00 16:04 WBC 26.6 H (3.8-10.6) k/uL RBC 3.91 L (4.30-5.90) m/uL Hgb 11.4 L (13.0-17.5) gm/dL Hct 35.5 L (39.0-53.0) % Plt Count (150-450) k/uL Neutrophils # 24.1 H (1.3-7.7) k/uL Lymphocytes # (1.0-4.8) k/uL Monocytes # 1.2 H (0-1.0) k/uL ABG pH (7.35-7.45) ABG pCO2 (35-45) mmHg ABG pO2 (83-108) mmHg ABG Total CO2 (19-24) mmol/L ABG O2 Saturation (94-97) % Sodium (137-145) mmol/L Chloride (98-107) mmol/L Carbon Dioxide (22-30) mmol/L BUN (9-20) mg/dL Glucose (74-99) mg/dL POC Glucose (mg/dL) 231 H 191 H (75-99) mg/dL Calcium (8.4-10.2) mg/dL Magnesium (1.6-2.3) mg/dL Alkaline Phosphatase (38-126) U/L Total Protein (6.3-8.2) g/dL Albumin (3.5-5.0) g/dL Crossmatch 03/29/21 03/29/21 03/29/21 Range/Units 17:06 17:16 17:55 WBC 23.2 H (3.8-10.6) k/uL RBC 3.34 L (4.30-5.90) m/uL Hgb 9.8 L D (13.0-17.5) gm/dL Hct 30.1 L (39.0-53.0) % Plt Count (150-450) k/uL Neutrophils # 20.6 H (1.3-7.7) k/uL Lymphocytes # 0.7 L (1.0-4.8) k/uL Monocytes # 1.6 H (0-1.0) k/uL ABG pH (7.35-7.45) ABG pCO2 (35-45) mmHg ABG pO2 141 H (83-108) mmHg ABG Total CO2 (19-24) mmol/L ABG O2 Saturation 99.5 H (94-97) % Sodium (137-145) mmol/L Chloride (98-107) mmol/L Carbon Dioxide (22-30) mmol/L BUN (9-20) mg/dL Glucose (74-99) mg/dL POC Glucose (mg/dL) 158 H (75-99) mg/dL Calcium (8.4-10.2) mg/dL Magnesium (1.6-2.3) mg/dL Alkaline Phosphatase (38-126) U/L Total Protein (6.3-8.2) g/dL Albumin (3.5-5.0) g/dL Crossmatch 03/29/21 03/29/21 03/29/21 Range/Units 17:56 19:03 20:04 WBC (3.8-10.6) k/uL RBC (4.30-5.90) m/uL Hgb (13.0-17.5) gm/dL Hct (39.0-53.0) % Plt Count (150-450) k/uL Neutrophils # (1.3-7.7) k/uL Lymphocytes # (1.0-4.8) k/uL Monocytes # (0-1.0) k/uL ABG pH (7.35-7.45) ABG pCO2 (35-45) mmHg ABG pO2 (83-108) mmHg ABG Total CO2 (19-24) mmol/L ABG O2 Saturation (94-97) % Sodium (137-145) mmol/L Chloride (98-107) mmol/L Carbon Dioxide (22-30) mmol/L BUN (9-20) mg/dL Glucose (74-99) mg/dL POC Glucose (mg/dL) 142 H 110 H 139 H (75-99) mg/dL Calcium (8.4-10.2) mg/dL Magnesium (1.6-2.3) mg/dL Alkaline Phosphatase (38-126) U/L Total Protein (6.3-8.2) g/dL Albumin (3.5-5.0) g/dL Crossmatch 03/29/21 03/29/21 03/29/21 Range/Units 21:07 22:07 23:05 WBC (3.8-10.6) k/uL RBC (4.30-5.90) m/uL Hgb (13.0-17.5) gm/dL Hct (39.0-53.0) % Plt Count (150-450) k/uL Neutrophils # (1.3-7.7) k/uL Lymphocytes # (1.0-4.8) k/uL Monocytes # (0-1.0) k/uL ABG pH (7.35-7.45) ABG pCO2 (35-45) mmHg ABG pO2 (83-108) mmHg ABG Total CO2 (19-24) mmol/L ABG O2 Saturation (94-97) % Sodium (137-145) mmol/L Chloride (98-107) mmol/L Carbon Dioxide (22-30) mmol/L BUN (9-20) mg/dL Glucose (74-99) mg/dL POC Glucose (mg/dL) 142 H 136 H 138 H (75-99) mg/dL Calcium (8.4-10.2) mg/dL Magnesium (1.6-2.3) mg/dL Alkaline Phosphatase (38-126) U/L Total Protein (6.3-8.2) g/dL Albumin (3.5-5.0) g/dL Crossmatch 03/30/21 03/30/21 03/30/21 Range/Units 00:05 02:08 03:07 WBC (3.8-10.6) k/uL RBC (4.30-5.90) m/uL Hgb (13.0-17.5) gm/dL Hct (39.0-53.0) % Plt Count (150-450) k/uL Neutrophils # (1.3-7.7) k/uL Lymphocytes # (1.0-4.8) k/uL Monocytes # (0-1.0) k/uL ABG pH (7.35-7.45) ABG pCO2 (35-45) mmHg ABG pO2 (83-108) mmHg ABG Total CO2 (19-24) mmol/L ABG O2 Saturation (94-97) % Sodium (137-145) mmol/L Chloride (98-107) mmol/L Carbon Dioxide (22-30) mmol/L BUN (9-20) mg/dL Glucose (74-99) mg/dL POC Glucose (mg/dL) 116 H 143 H 143 H (75-99) mg/dL Calcium (8.4-10.2) mg/dL Magnesium (1.6-2.3) mg/dL Alkaline Phosphatase (38-126) U/L Total Protein (6.3-8.2) g/dL Albumin (3.5-5.0) g/dL Crossmatch 03/30/21 03/30/21 03/30/21 Range/Units 04:02 04:05 04:30 WBC 16.2 H (3.8-10.6) k/uL RBC 3.43 L (4.30-5.90) m/uL Hgb 10.1 L (13.0-17.5) gm/dL Hct 30.8 L (39.0-53.0) % Plt Count 149 L (150-450) k/uL Neutrophils # 14.3 H (1.3-7.7) k/uL Lymphocytes # 0.7 L (1.0-4.8) k/uL Monocytes # 1.1 H (0-1.0) k/uL ABG pH (7.35-7.45) ABG pCO2 (35-45) mmHg ABG pO2 (83-108) mmHg ABG Total CO2 (19-24) mmol/L ABG O2 Saturation (94-97) % Sodium 133 L (137-145) mmol/L Chloride 109 H (98-107) mmol/L Carbon Dioxide 19 L (22-30) mmol/L BUN 24 H (9-20) mg/dL Glucose 134 H (74-99) mg/dL POC Glucose (mg/dL) 140 H (75-99) mg/dL Calcium 7.7 L (8.4-10.2) mg/dL Magnesium 2.4 H (1.6-2.3) mg/dL Alkaline Phosphatase 33 L (38-126) U/L Total Protein 4.7 L (6.3-8.2) g/dL Albumin 2.8 L (3.5-5.0) g/dL Crossmatch 03/30/21 03/30/21 03/30/21 Range/Units 05:07 06:32 07:13 WBC (3.8-10.6) k/uL RBC (4.30-5.90) m/uL Hgb (13.0-17.5) gm/dL Hct (39.0-53.0) % Plt Count (150-450) k/uL Neutrophils # (1.3-7.7) k/uL Lymphocytes # (1.0-4.8) k/uL Monocytes # (0-1.0) k/uL ABG pH (7.35-7.45) ABG pCO2 (35-45) mmHg ABG pO2 (83-108) mmHg ABG Total CO2 (19-24) mmol/L ABG O2 Saturation (94-97) % Sodium (137-145) mmol/L Chloride (98-107) mmol/L Carbon Dioxide (22-30) mmol/L BUN (9-20) mg/dL Glucose (74-99) mg/dL POC Glucose (mg/dL) 119 H 108 H 121 H (75-99) mg/dL Calcium (8.4-10.2) mg/dL Magnesium (1.6-2.3) mg/dL Alkaline Phosphatase (38-126) U/L Total Protein (6.3-8.2) g/dL Albumin (3.5-5.0) g/dL Crossmatch - Imaging and Cardiology Chest x-ray: image reviewed Assessment and Plan Assessment: 1. Aortic valve disorder with predominant aortic valve regurgitation, evidence of bicuspid aortic valve with incomplete fusion of right and non-coronary cusps, status post aortic valve replacement 2. History of hypertension 3. History of hyperlipidemia, treated, cholesterol 161, LDL 73, triglycerides 56 4. Insulin-dependent diabetes, type I with insulin pump, preoperative hemoglobin A1c 7.6% 5. Asthma with recent exacerbation treated with steroids and antibiotic, moderate restrictive disease with preoperative FEV1 59% of predicted 6. Hypothyroid 7. GERD 8. Family history of premature coronary artery disease with father from myocardial infarction at 56 years old 9. Vaccinated with Moderna, last dose June 2020 10. Preoperative nasal screen positive for MSSA 11. Postoperative acute blood loss anemia and thrombocytopenia, expected Plan: 1. Continue aspirin, statin, Plavix, beta caroline therapy. Will increase beta caroline therapy as tolerated. Likely will add afterload reduction today 2. Wean O2 as tolerated. Encourage incentive spirometry use 10 times every hour while awake. Bronchodilators, inhaled steroids per pulmonology 3. Increase activity, ambulate as tolerated. PT/OT/cardiac rehab consulted 4. Will monitor daily labs and x-rays. Electrolyte replacement per protocol. Will give 20 mg IV push Lasix today, we'll give 1 g calcium gluconate 5. GI/DVT prophylaxis 6. Pain control with current medication regimen 7. Insulin management per primary care service. Patient needs tight blood sugar control to promote healing and prevent infection 8. Likely will discontinue [place] later today. Connect Cordis to continuous CVP monitoring 9. Continue chest tubes for another 24 hours 10. Continue Oropeza catheter for another 24 hours for strict accurate intake and output. Daily weights 11. Continue home dose of Synthroid, Singulair 12. More recommendations to follow based on patient's progress Time with Patient: Greater than 30
[2021-03-30] MEDS ORDERED: CALCIUM GLUCONATE 1 GM in SODIUM CHLORIDE 0.9% 100 ML IVPB ONE (08:00)
[2021-03-30] MEDS: CLOPIDOGREL 75 MG TAB PO SCH (08:10)
[2021-03-30] MEDS: ASPIRIN 81 MG PO SCH (08:10)
[2021-03-30 08:23] LABS: Glucose,Whole Blood 187 mg/dL (75-99)
[2021-03-30] MEDS: IPRATROPIUM-ALBUTEROL 3 ML NEB INHALATION SCH ×4 (08:35→19:27)
[2021-03-30] MEDS: BUDESONIDE 1 MG/2 ML NEBU INHALATION SCH ×2 (08:35→19:27)
[2021-03-30] MEDS: MUPIROCIN 2% OINT 22 GM TUBE NASAL SCH ×2 (08:48→20:04)
[2021-03-30] MEDS ORDERED: PANTOPRAZOLE 40 MG/10 ML VIAL IVP SCH (09:00)
[2021-03-30] MEDS ORDERED: ASCORBIC ACID 500 MG TAB PO SCH (09:00)
[2021-03-30] MEDS ORDERED: METOPROLOL TARTRATE 12.5 MG TAB PO SCH (09:00)
[2021-03-30] MEDS ORDERED: bisacodyL 10 MG SUPP RECTAL PRN (09:00)
[2021-03-30] MEDS ORDERED: MAGNESIUM HYDROXIDE 2,400 MG/10 ML CUP PO PRN (09:00)
[2021-03-30 09:38] VITALS: BMI 37.1
--- NOTE | 2021-03-30 10:36 | XR ---
EXAMINATION TYPE: XR chest 1V portable DATE OF EXAM: 03/30/2021 COMPARISON: Chest x-ray 03/29/2021 HISTORY: Postop cardiac surgery TECHNIQUE: Single frontal view of the chest is obtained. FINDINGS: Endotracheal tube and NG tube have been removed. There are median sternal drains, right ju gular central venous catheter, patient shows cardiac valve replacement, left atrial appendage clip pl acement. Right chest tube remains in place. There are overlying artifacts. Lung biopsy low and the pa tient is rotated. There is no evidence of pneumothorax. Patchy basilar density is present. Cardiac me diastinal silhouette appears prominently which may be technical. IMPRESSION: Interval extubation. Expiratory rotated exam. Probable basilar atelectasis.
[2021-03-30 11:18] LABS: Glucose,Whole Blood 157 mg/dL (75-99)
--- NOTE | 2021-03-30 11:23 | P.PN ---
Subjective Progress Note Date: 03/30/21 HISTORY OF PRESENT ILLNESS [age]-year-old male one of Dr. Marcano patient with past medical history of type 1 diabetes on insulin pump who had history of asthma seen Dr. Harry chapa on regular basis, known to have history of hypertension hyperlipidemia and hypothyroidism who was hospitalized in February 07 to 02/10/2021 for worsening dyspnea and shortness of breath ended up going for further workup including heart catheter and transthoracic echocardiogram and process is Optigene echocardiogram findings were consistent with severe aortic stenosis with no major coronary artery involvement. Patient ended up seeing cardiothoracic surgeon Dr. Torres and plan to do an elective aortic valve placement which was done successfully, patient was on mechanical ventilation for sure. Of time and was weaned off shortly after he seen pulmonary ready. His blood sugar has been better controlled currently with insulin drip which will be continued this point until patient is able to take oral intake with switch him to insulin pump. Patient otherwise stable hemodynamically doing well he is maintaining his on airway on the hardly any vasopressor. 03/30: Patient is seen in the intensive care unit. He is sitting up in a recliner appears to be comfortable. He is currently on insulin drip which we will plan to transition over to Levemir tonight and in about one day or so, patient will be transitioned to his insulin pump. Blood sugars are running 121- 187. Right cordis and chest tubes remains in place. Patient does have chest discomfort, no complaints of shortness of breath. welt beater sinus rhythm with occasional PVCs. He has not required vasopressors. Patient has been afebrile. WBC 16.2, hemoglobin 10.1, platelet count 149. Sodium 133, potassium 5.1, chloride 109, CO2 19, BUN 24 and creatinine 0.82. Magnesium 2.4. Repeat chest x-ray reveals probable basilar atelectasis. Patient is reaching 1000 on incentive spirometry. REVIEW OF SYSTEMS Constitutional: No fever, no chills, no night sweats. No weight change. No weakness, fatigue or lethargy. No daytime sleepiness. EENT: No headache. No blurred vision or double vision, no loss of vision. No loss of Hearing, no ringing in the ears, no dizziness. No nasal drainage or congestion. No epistaxis. No sore throat. Lungs: 3 chest tube at this point patient is awake able to maintain his on airway No shortness of breath, cough, no sputum production. No wheezing. Cardiovascular: Chest discomfort secondary to placement and left atrial appendage so far no complication no arrhythmia, no lower extremity edema. No palpitations. Abdominal: No abdominal pain. No nausea, vomiting. No diarrhea. No constipation. No bloody or tarry stools.. No loss of appetite. Genitourinary: No dysuria, increased frequency, urgency. No urinary retention. Musculoskeletal: No myalgias. No muscle weakness, no gait dysfunction, no frequent falls. No back pain. No neck pain. Integumentary: No wounds, no lesions. No rash or pruritus. No unusual bruising. No change in hair or nails. Neurologic: No aphasia. No facial droop. No change in mentation. No head injury. No headache. No paralysis. No paresthesia. Psychiatric: No depression. No anxiety. No mood swings. Endocrine: Mildly abnormal blood sugars. No weight change. No excessive sweating or thirst. No cold intolerance. PHYSICAL EXAMINATION Gen: This is a 70-year-old laying in recliner in ICU and appears to be in no acute distress. HEENT: Head is atraumatic, normocephalic. Pupils equal, round. Sclerae is anicteric. NECK: Supple. No JVD. No lymphadenopathy. No thyromegaly. LUNGS: His 3 chest tube at this point, decreased breath sound in the left side no rhonchi crackles or wheezes. HEART: Regular rate and rhythm. No murmur. ABDOMEN: Soft. Bowel sounds are present. No masses. No tenderness. EXTREMITIES: No pedal edema. No calf tenderness. NEUROLOGICAL: Patient is awake, alert and oriented x3. Cranial nerves 2 through 12 are grossly intact. ASSESSMENT AND PLAN 1. Post aortic valve placement and left at 2 appendage, postop day #1. Continu e current plan per cardiothoracic team. 2 type 1 diabetes: Patient is on insulin pump at home, insulin drip will be discontinued this evening and start on Levemir, insulin scale. 3 hypertension: Was on losartan 0.5 mg daily, Lopressor 12.5 mg twice daily. 4 hyperlipidemia: Continue patient on atorvastatin 40 mg daily. 5 history of asthma: Patient seen pulmonary on regular basis and was on Pu lmicort and Ventolin inhaler with continue nebulizer management as well this point. Patient is still on Singulair 10 mg a day which will be resumed. 6 hypothyroidism: Has been on levothyroxine 150 g daily resume medication. 7 severe GERD/GI prophylaxis: Patient will be continued on Pepcid 20 mg twice a day. 8 DVT prophylaxis: Continue patient on heparin 5000 units subcutaneous 3 times a day. Impression and plan of care have been directed as dictated by the signing physician. Maria R Topete nurse practitioner acting as scribe for signing physician. Objective - Vital Signs Vital signs: Vital Signs Temp 98.6 F 03/30/21 08:00 Pulse 84 03/30/21 09:00 Resp 37 H 03/30/21 09:00 BP 123/62 03/30/21 09:00 Pulse Ox 97 03/30/21 09:00 Intake & Output 03/29/21 03/30/21 03/30/21 18:59 06:59 18:59 Intake Total 8172.392 3322.015 310.383 Output Total 2780 976 258 Balance -1510.831 180.015 52.383 Weight 114.1 kg 114.1 kg Intake: IV 1205 1088 297 ACETAMINOPHEN IV (For NPO 100 ) 1,000 mg In Empty Bag 1 bag @ 400 mls/hr IVPB Q6H EVE Rx#:[id number] Albumin Human 5% 250 ml 500 In Empty Bag 1 bag @ 250 mls/hr IVPB Q1HR PRN Rx#: [id number] CO/CI 140 330 120 Pressure Bag 63 108 27 Sodium Chloride 0.9% 1, 300 600 150 000 ml @ 20 mls/hr IV . Q24H EVE Rx#:[id number] ceFAZolin 2 gm In Sodium 50 50 Chloride 0.9% 50 ml @ 100 mls/hr IVPB Q8HR EVE Rx# :[id number] Intake, IV Titration 64.169 68.015 13.383 Amount Clevidipine Butyrate 25 7.1 mg In Empty Bag 1 bag @ 1 MG/HR 2 mls/hr IV .Q24H EVE Rx#:[id number] Dexmedetomidine/0.9% NaCl 12.1 44.287 (Pmx) 400 mcg In Empty Bag 1 bag @ Titrate IV . Q0M EVE Rx#:[id number] Insulin Regular 100 unit 13.652 23.728 13.383 In Sodium Chloride 0.9% 100 ml @ Per Protocol IV .Q0M EVE Rx#:[id number] propofoL 1,000 mg In 31.317 Empty Bag 1 bag @ Titrate IV .Q0M EVE Rx#: [id number] Output: Chest Tube Drainage 550 490 190 Mediastinal/Left Pleural 210 210 0 Right Pleural 340 280 190 Urine 1330 486 68 Estimated Blood Loss 900 Other: Voiding Method Indwelling Catheter Indwelling Catheter Indwelling Catheter ABP, PAP, CO, CI - Last Documented Arterial Blood Pressure 135/57 Pulmonary Artery Pressure 46/21 Cardiac Output 5.5 Cardiac Index 2.6 - Labs CBC & Chem 7: 03/30/21 04:05 03/30/21 04:30 Labs: Abnormal Lab Results - Last 24 Hours (Table) 03/25/21 03/29/21 03/29/21 Range/Units 09:04 12:30 12:30 WBC 17.7 H (3.8-10.6) k/uL RBC 3.57 L (4.30-5.90) m/uL Hgb 10.5 L (13.0-17.5) gm/dL Hct 32.2 L (39.0-53.0) % Plt Count 142 L (150-450) k/uL Neutrophils # 15.5 H (1.3-7.7) k/uL Lymphocytes # (1.0-4.8) k/uL Monocytes # (0-1.0) k/uL ABG pH (7.35-7.45) ABG pCO2 (35-45) mmHg ABG pO2 (83-108) mmHg ABG Total CO2 (19-24) mmol/L ABG O2 Saturation (94-97) % Sodium 134 L (137-145) mmol/L Chloride 110 H (98-107) mmol/L Carbon Dioxide (22-30) mmol/L BUN (9-20) mg/dL Glucose 107 H (74-99) mg/dL POC Glucose (mg/dL) (75-99) mg/dL Calcium 7.6 L (8.4-10.2) mg/dL Magnesium 2.9 H (1.6-2.3) mg/dL Alkaline Phosphatase 28 L (38-126) U/L Total Protein 4.3 L (6.3-8.2) g/dL Albumin 2.3 L (3.5-5.0) g/dL Crossmatch See Detail 03/29/21 03/29/21 03/29/21 Range/Units 12:42 13:01 14:09 WBC (3.8-10.6) k/uL RBC (4.30-5.90) m/uL Hgb (13.0-17.5) gm/dL Hct (39.0-53.0) % Plt Count (150-450) k/uL Neutrophils # (1.3-7.7) k/uL Lymphocytes # (1.0-4.8) k/uL Monocytes # (0-1.0) k/uL ABG pH 7.31 L (7.35-7.45) ABG pCO2 50 H (35-45) mmHg ABG pO2 361 H (83-108) mmHg ABG Total CO2 27 H (19-24) mmol/L ABG O2 Saturation 100.0 H (94-97) % Sodium (137-145) mmol/L Chloride (98-107) mmol/L Carbon Dioxide (22-30) mmol/L BUN (9-20) mg/dL Glucose (74-99) mg/dL POC Glucose (mg/dL) 107 H 218 H (75-99) mg/dL Calcium (8.4-10.2) mg/dL Magnesium (1.6-2.3) mg/dL Alkaline Phosphatase (38-126) U/L Total Protein (6.3-8.2) g/dL Albumin (3.5-5.0) g/dL Crossmatch 03/29/21 03/29/21 03/29/21 Range/Units 15:00 15:00 16:04 WBC 26.6 H (3.8-10.6) k/uL RBC 3.91 L (4.30-5.90) m/uL Hgb 11.4 L (13.0-17.5) gm/dL Hct 35.5 L (39.0-53.0) % Plt Count (150-450) k/uL Neutrophils # 24.1 H (1.3-7.7) k/uL Lymphocytes # (1.0-4.8) k/uL Monocytes # 1.2 H (0-1.0) k/uL ABG pH (7.35-7.45) ABG pCO2 (35-45) mmHg ABG pO2 (83-108) mmHg ABG Total CO2 (19-24) mmol/L ABG O2 Saturation (94-97) % Sodium (137-145) mmol/L Chloride (98-107) mmol/L Carbon Dioxide (22-30) mmol/L BUN (9-20) mg/dL Glucose (74-99) mg/dL POC Glucose (mg/dL) 231 H 191 H (75-99) mg/dL Calcium (8.4-10.2) mg/dL Magnesium (1.6-2.3) mg/dL Alkaline Phosphatase (38-126) U/L Total Protein (6.3-8.2) g/dL Albumin (3.5-5.0) g/dL Crossmatch 03/29/21 03/29/21 03/29/21 Range/Units 17:06 17:16 17:55 WBC 23.2 H (3.8-10.6) k/uL RBC 3.34 L (4.30-5.90) m/uL Hgb 9.8 L D (13.0-17.5) gm/dL Hct 30.1 L (39.0-53.0) % Plt Count (150-450) k/uL Neutrophils # 20.6 H (1.3-7.7) k/uL Lymphocytes # 0.7 L (1.0-4.8) k/uL Monocytes # 1.6 H (0-1.0) k/uL ABG pH (7.35-7.45) ABG pCO2 (35-45) mmHg ABG pO2 141 H (83-108) mmHg ABG Total CO2 (19-24) mmol/L ABG O2 Saturation 99.5 H (94-97) % Sodium (137-145) mmol/L Chloride (98-107) mmol/L Carbon Dioxide (22-30) mmol/L BUN (9-20) mg/dL Glucose (74-99) mg/dL POC Glucose (mg/dL) 158 H (75-99) mg/dL Calcium (8.4-10.2) mg/dL Magnesium (1.6-2.3) mg/dL Alkaline Phosphatase (38-126) U/L Total Protein (6.3-8.2) g/dL Albumin (3.5-5.0) g/dL Crossmatch 03/29/21 03/29/21 03/29/21 Range/Units 17:56 19:03 20:04 WBC (3.8-10.6) k/uL RBC (4.30-5.90) m/uL Hgb (13.0-17.5) gm/dL Hct (39.0-53.0) % Plt Count (150-450) k/uL Neutrophils # (1.3-7.7) k/uL Lymphocytes # (1.0-4.8) k/uL Monocytes # (0-1.0) k/uL ABG pH (7.35-7.45) ABG pCO2 (35-45) mmHg ABG pO2 (83-108) mmHg ABG Total CO2 (19-24) mmol/L ABG O2 Saturation (94-97) % Sodium (137-145) mmol/L Chloride (98-107) mmol/L Carbon Dioxide (22-30) mmol/L BUN (9-20) mg/dL Glucose (74-99) mg/dL POC Glucose (mg/dL) 142 H 110 H 139 H (75-99) mg/dL Calcium (8.4-10.2) mg/dL Magnesium (1.6-2.3) mg/dL Alkaline Phosphatase (38-126) U/L Total Protein (6.3-8.2) g/dL Albumin (3.5-5.0) g/dL Crossmatch 03/29/21 03/29/21 03/29/21 Range/Units 21:07 22:07 23:05 WBC (3.8-10.6) k/uL RBC (4.30-5.90) m/uL Hgb (13.0-17.5) gm/dL Hct (39.0-53.0) % Plt Count (150-450) k/uL Neutrophils # (1.3-7.7) k/uL Lymphocytes # (1.0-4.8) k/uL Monocytes # (0-1.0) k/uL ABG pH (7.35-7.45) ABG pCO2 (35-45) mmHg ABG pO2 (83-108) mmHg ABG Total CO2 (19-24) mmol/L ABG O2 Saturation (94-97) % Sodium (137-145) mmol/L Chloride (98-107) mmol/L Carbon Dioxide (22-30) mmol/L BUN (9-20) mg/dL Glucose (74-99) mg/dL POC Glucose (mg/dL) 142 H 136 H 138 H (75-99) mg/dL Calcium (8.4-10.2) mg/dL Magnesium (1.6-2.3) mg/dL Alkaline Phosphatase (38-126) U/L Total Protein (6.3-8.2) g/dL Albumin (3.5-5.0) g/dL Crossmatch 03/30/21 03/30/21 03/30/21 Range/Units 00:05 02:08 03:07 WBC (3.8-10.6) k/uL RBC (4.30-5.90) m/uL Hgb (13.0-17.5) gm/dL Hct (39.0-53.0) % Plt Count (150-450) k/uL Neutrophils # (1.3-7.7) k/uL Lymphocytes # (1.0-4.8) k/uL Monocytes # (0-1.0) k/uL ABG pH (7.35-7.45) ABG pCO2 (35-45) mmHg ABG pO2 (83-108) mmHg ABG Total CO2 (19-24) mmol/L ABG O2 Saturation (94-97) % Sodium (137-145) mmol/L Chloride (98-107) mmol/L Carbon Dioxide (22-30) mmol/L BUN (9-20) mg/dL Glucose (74-99) mg/dL POC Glucose (mg/dL) 116 H 143 H 143 H (75-99) mg/dL Calcium (8.4-10.2) mg/dL Magnesium (1.6-2.3) mg/dL Alkaline Phosphatase (38-126) U/L Total Protein (6.3-8.2) g/dL Albumin (3.5-5.0) g/dL Crossmatch 03/30/21 03/30/21 03/30/21 Range/Units 04:02 04:05 04:30 WBC 16.2 H (3.8-10.6) k/uL RBC 3.43 L (4.30-5.90) m/uL Hgb 10.1 L (13.0-17.5) gm/dL Hct 30.8 L (39.0-53.0) % Plt Count 149 L (150-450) k/uL Neutrophils # 14.3 H (1.3-7.7) k/uL Lymphocytes # 0.7 L (1.0-4.8) k/uL Monocytes # 1.1 H (0-1.0) k/uL ABG pH (7.35-7.45) ABG pCO2 (35-45) mmHg ABG pO2 (83-108) mmHg ABG Total CO2 (19-24) mmol/L ABG O2 Saturation (94-97) % Sodium 133 L (137-145) mmol/L Chloride 109 H (98-107) mmol/L Carbon Dioxide 19 L (22-30) mmol/L BUN 24 H (9-20) mg/dL Glucose 134 H (74-99) mg/dL POC Glucose (mg/dL) 140 H (75-99) mg/dL Calcium 7.7 L (8.4-10.2) mg/dL Magnesium 2.4 H (1.6-2.3) mg/dL Alkaline Phosphatase 33 L (38-126) U/L Total Protein 4.7 L (6.3-8.2) g/dL Albumin 2.8 L (3.5-5.0) g/dL Crossmatch 03/30/21 03/30/21 03/30/21 Range/Units 05:07 06:32 07:13 WBC (3.8-10.6) k/uL RBC (4.30-5.90) m/uL Hgb (13.0-17.5) gm/dL Hct (39.0-53.0) % Plt Count (150-450) k/uL Neutrophils # (1.3-7.7) k/uL Lymphocytes # (1.0-4.8) k/uL Monocytes # (0-1.0) k/uL ABG pH (7.35-7.45) ABG pCO2 (35-45) mmHg ABG pO2 (83-108) mmHg ABG Total CO2 (19-24) mmol/L ABG O2 Saturation (94-97) % Sodium (137-145) mmol/L Chloride (98-107) mmol/L Carbon Dioxide (22-30) mmol/L BUN (9-20) mg/dL Glucose (74-99) mg/dL POC Glucose (mg/dL) 119 H 108 H 121 H (75-99) mg/dL Calcium (8.4-10.2) mg/dL Magnesium (1.6-2.3) mg/dL Alkaline Phosphatase (38-126) U/L Total Protein (6.3-8.2) g/dL Albumin (3.5-5.0) g/dL Crossmatch 03/30/21 Range/Units 08:21 WBC (3.8-10.6) k/uL RBC (4.30-5.90) m/uL Hgb (13.0-17.5) gm/dL Hct (39.0-53.0) % Plt Count (150-450) k/uL Neutrophils # (1.3-7.7) k/uL Lymphocytes # (1.0-4.8) k/uL Monocytes # (0-1.0) k/uL ABG pH (7.35-7.45) ABG pCO2 (35-45) mmHg ABG pO2 (83-108) mmHg ABG Total CO2 (19-24) mmol/L ABG O2 Saturation (94-97) % Sodium (137-145) mmol/L Chloride (98-107) mmol/L Carbon Dioxide (22-30) mmol/L BUN (9-20) mg/dL Glucose (74-99) mg/dL POC Glucose (mg/dL) 187 H (75-99) mg/dL Calcium (8.4-10.2) mg/dL Magnesium (1.6-2.3) mg/dL Alkaline Phosphatase (38-126) U/L Total Protein (6.3-8.2) g/dL Albumin (3.5-5.0) g/dL Crossmatch
--- NOTE | 2021-03-30 11:49 | P.PN ---
Subjective Progress Note Date: 03/30/21 Principal diagnosis: Status post aortic valve replacement, postoperative day #1 This is a 70-year-old white male with history of diabetes, patient has insulin pump place, patient is also known to have history of asthma, hypertension, recent 2-D echo showed aortic valve regurgitation, and the patient was complaining of dyspnea on exertion. Initially his shortness of breath was blamed on his asthma, however further workup was done, patient had MIKAEL showing severe aortic valve regurgitation, mild aortic stenosis, ejection fraction of 45%, and he was also noted to have dilatation of the left ventricle and moderate hypertrophy. Patient was seen by cardiothoracic surgery on consultation, and today he underwent aortic valve replacement, patient was sent to the ICU on mechanical ventilation, and at the time I evaluated the patient, patient was already on weaning mode of mechanical ventilation using pressure support of 8 and PEEP of 8. Patient was actually on CPAP, and he was noted to be doing well. ABG was excellent, and shortly after my evaluation, I recommended extubating the patient. And this was done uneventfully. Chest x-ray showed no evidence of active disease. Labs were all reviewed, ABG was also reviewed. Patient was reevaluated today on 03/30/21, remains in the ICU, patient was extubated last night at 17:40 p.m., tolerated the extubation well. Patient is sitting at a bedside chair, in no distress. Chest x-ray today is reassuring with minimal expected postoperative atelectasis. Patient is on few liters nasal cannula, relatively asymptomatic, doing well with incentive spirometry. Achieving over 1000 mL. Patient is hemodynamically stable, not requiring any inotropes or any pressors. Continues to have right internal jugular Cordis, continues to have mediastinal/right pleural chest tubes remained, and he has a left radial arterial line. WBC count is 16.2 hemoglobin is 10.1 electrolytes are normal. Renal profile is normal. Objective - Vital Signs Vital signs: Vital Signs Temp 98.6 F 03/30/21 08:00 Pulse 86 03/30/21 11:00 Resp 35 H 03/30/21 11:00 BP 127/68 03/30/21 10:00 Pulse Ox 96 03/30/21 11:00 Intake & Output 03/29/21 03/30/21 03/30/21 18:59 06:59 18:59 Intake Total 6136.918 1242.015 459.426 Output Total 2780 976 278 Balance -1510.831 180.015 181.426 Weight 114.1 kg 114.1 kg Intake: IV 1205 1088 435 ACETAMINOPHEN IV (For NPO 100 ) 1,000 mg In Empty Bag 1 bag @ 400 mls/hr IVPB Q6H [facility] Rx#:[id number] Albumin Human 5% 250 ml 500 In Empty Bag 1 bag @ 250 mls/hr IVPB Q1HR [facility] Rx#: [id number] CO/CI 140 330 140 Pressure Bag 63 108 45 Sodium Chloride 0.9% 1, 300 600 250 000 ml @ 20 mls/hr IV . Q24H [facility] Rx#:[id number] ceFAZolin 2 gm In Sodium 50 50 Chloride 0.9% 50 ml @ 100 mls/hr IVPB Q8HR [facility] Rx# :[id number] Intake, IV Titration 64.169 68.015 24.426 Amount Clevidipine Butyrate 25 7.1 mg In Empty Bag 1 bag @ 1 MG/HR 2 mls/hr IV .Q24H [facility] Rx#:[id number] Dexmedetomidine/0.9% NaCl 12.1 44.287 (Pmx) 400 mcg In Empty Bag 1 bag @ Titrate IV . Q0M [facility] Rx#:[id number] Insulin Regular 100 unit 13.652 23.728 24.426 In Sodium Chloride 0.9% 100 ml @ Per Protocol IV .Q0M [facility] Rx#:[id number] propofoL 1,000 mg In 31.317 Empty Bag 1 bag @ Titrate IV .Q0M [facility] Rx#: [id number] Output: Chest Tube Drainage 550 490 190 Mediastinal/Left Pleural 210 210 0 Right Pleural 340 280 190 Urine 1330 486 88 Estimated Blood Loss 900 Other: Voiding Method Indwelling Catheter Indwelling Catheter Indwelling Catheter ABP, PAP, CO, CI - Last Documented Arterial Blood Pressure 135/57 Pulmonary Artery Pressure 32/18 Cardiac Output 5.1 Cardiac Index 2.4 - Exam CONSTITUTIONAL: Revealed a 70-year-old white male in no distress, extremely pleasant. On 2 L nasal cannula. RESPIRATORY: Symmetrical chest expansion, diminished at the bases, no crackles or rhonchi or wheezes. CARDIOVASCULAR: Distant S1 and S2, no S3 gallop, 2/6 systolic murmur thought the precordium. GASTROINTESTINAL: Soft nontender no megaly no rebound no guarding. INTEGUMENTARY: No rashes. No areas of erythema. NEUROLOGIC: Alert and oriented 3 focal deficits. MUSKULOSKELETAL: Deformities and no limitation in range of motion. PSYCHIATRIC: Normal mood, affect and normal mental status examination. - Labs CBC & Chem 7: 03/30/21 04:05 03/30/21 04:30 Labs: Abnormal Lab Results - Last 24 Hours (Table) 03/25/21 03/29/21 03/29/21 Range/Units 09:04 12:30 12:30 WBC 17.7 H (3.8-10.6) k/uL RBC 3.57 L (4.30-5.90) m/uL Hgb 10.5 L (13.0-17.5) gm/dL Hct 32.2 L (39.0-53.0) % Plt Count 142 L (150-450) k/uL Neutrophils # 15.5 H (1.3-7.7) k/uL Lymphocytes # (1.0-4.8) k/uL Monocytes # (0-1.0) k/uL ABG pH (7.35-7.45) ABG pCO2 (35-45) mmHg ABG pO2 (83-108) mmHg ABG Total CO2 (19-24) mmol/L ABG O2 Saturation (94-97) % Sodium 134 L (137-145) mmol/L Chloride 110 H (98-107) mmol/L Carbon Dioxide (22-30) mmol/L BUN (9-20) mg/dL Glucose 107 H (74-99) mg/dL POC Glucose (mg/dL) (75-99) mg/dL Calcium 7.6 L (8.4-10.2) mg/dL Magnesium 2.9 H (1.6-2.3) mg/dL Alkaline Phosphatase 28 L (38-126) U/L Total Protein 4.3 L (6.3-8.2) g/dL Albumin 2.3 L (3.5-5.0) g/dL Crossmatch See Detail 03/29/21 03/29/21 03/29/21 Range/Units 12:42 13:01 14:09 WBC (3.8-10.6) k/uL RBC (4.30-5.90) m/uL Hgb (13.0-17.5) gm/dL Hct (39.0-53.0) % Plt Count (150-450) k/uL Neutrophils # (1.3-7.7) k/uL Lymphocytes # (1.0-4.8) k/uL Monocytes # (0-1.0) k/uL ABG pH 7.31 L (7.35-7.45) ABG pCO2 50 H (35-45) mmHg ABG pO2 361 H (83-108) mmHg ABG Total CO2 27 H (19-24) mmol/L ABG O2 Saturation 100.0 H (94-97) % Sodium (137-145) mmol/L Chloride (98-107) mmol/L Carbon Dioxide (22-30) mmol/L BUN (9-20) mg/dL Glucose (74-99) mg/dL POC Glucose (mg/dL) 107 H 218 H (75-99) mg/dL Calcium (8.4-10.2) mg/dL Magnesium (1.6-2.3) mg/dL Alkaline Phosphatase (38-126) U/L Total Protein (6.3-8.2) g/dL Albumin (3.5-5.0) g/dL Crossmatch 03/29/21 03/29/21 03/29/21 Range/Units 15:00 15:00 16:04 WBC 26.6 H (3.8-10.6) k/uL RBC 3.91 L (4.30-5.90) m/uL Hgb 11.4 L (13.0-17.5) gm/dL Hct 35.5 L (39.0-53.0) % Plt Count (150-450) k/uL Neutrophils # 24.1 H (1.3-7.7) k/uL Lymphocytes # (1.0-4.8) k/uL Monocytes # 1.2 H (0-1.0) k/uL ABG pH (7.35-7.45) ABG pCO2 (35-45) mmHg ABG pO2 (83-108) mmHg ABG Total CO2 (19-24) mmol/L ABG O2 Saturation (94-97) % Sodium (137-145) mmol/L Chloride (98-107) mmol/L Carbon Dioxide (22-30) mmol/L BUN (9-20) mg/dL Glucose (74-99) mg/dL POC Glucose (mg/dL) 231 H 191 H (75-99) mg/dL Calcium (8.4-10.2) mg/dL Magnesium (1.6-2.3) mg/dL Alkaline Phosphatase (38-126) U/L Total Protein (6.3-8.2) g/dL Albumin (3.5-5.0) g/dL Crossmatch 03/29/21 03/29/21 03/29/21 Range/Units 17:06 17:16 17:55 WBC 23.2 H (3.8-10.6) k/uL RBC 3.34 L (4.30-5.90) m/uL Hgb 9.8 L D (13.0-17.5) gm/dL Hct 30.1 L (39.0-53.0) % Plt Count (150-450) k/uL Neutrophils # 20.6 H (1.3-7.7) k/uL Lymphocytes # 0.7 L (1.0-4.8) k/uL Monocytes # 1.6 H (0-1.0) k/uL ABG pH (7.35-7.45) ABG pCO2 (35-45) mmHg ABG pO2 141 H (83-108) mmHg ABG Total CO2 (19-24) mmol/L ABG O2 Saturation 99.5 H (94-97) % Sodium (137-145) mmol/L Chloride (98-107) mmol/L Carbon Dioxide (22-30) mmol/L BUN (9-20) mg/dL Glucose (74-99) mg/dL POC Glucose (mg/dL) 158 H (75-99) mg/dL Calcium (8.4-10.2) mg/dL Magnesium (1.6-2.3) mg/dL Alkaline Phosphatase (38-126) U/L Total Protein (6.3-8.2) g/dL Albumin (3.5-5.0) g/dL Crossmatch 03/29/21 03/29/21 03/29/21 Range/Units 17:56 19:03 20:04 WBC (3.8-10.6) k/uL RBC (4.30-5.90) m/uL Hgb (13.0-17.5) gm/dL Hct (39.0-53.0) % Plt Count (150-450) k/uL Neutrophils # (1.3-7.7) k/uL Lymphocytes # (1.0-4.8) k/uL Monocytes # (0-1.0) k/uL ABG pH (7.35-7.45) ABG pCO2 (35-45) mmHg ABG pO2 (83-108) mmHg ABG Total CO2 (19-24) mmol/L ABG O2 Saturation (94-97) % Sodium (137-145) mmol/L Chloride (98-107) mmol/L Carbon Dioxide (22-30) mmol/L BUN (9-20) mg/dL Glucose (74-99) mg/dL POC Glucose (mg/dL) 142 H 110 H 139 H (75-99) mg/dL Calcium (8.4-10.2) mg/dL Magnesium (1.6-2.3) mg/dL Alkaline Phosphatase (38-126) U/L Total Protein (6.3-8.2) g/dL Albumin (3.5-5.0) g/dL Crossmatch 03/29/21 03/29/21 03/29/21 Range/Units 21:07 22:07 23:05 WBC (3.8-10.6) k/uL RBC (4.30-5.90) m/uL Hgb (13.0-17.5) gm/dL Hct (39.0-53.0) % Plt Count (150-450) k/uL Neutrophils # (1.3-7.7) k/uL Lymphocytes # (1.0-4.8) k/uL Monocytes # (0-1.0) k/uL ABG pH (7.35-7.45) ABG pCO2 (35-45) mmHg ABG pO2 (83-108) mmHg ABG Total CO2 (19-24) mmol/L ABG O2 Saturation (94-97) % Sodium (137-145) mmol/L Chloride (98-107) mmol/L Carbon Dioxide (22-30) mmol/L BUN (9-20) mg/dL Glucose (74-99) mg/dL POC Glucose (mg/dL) 142 H 136 H 138 H (75-99) mg/dL Calcium (8.4-10.2) mg/dL Magnesium (1.6-2.3) mg/dL Alkaline Phosphatase (38-126) U/L Total Protein (6.3-8.2) g/dL Albumin (3.5-5.0) g/dL Crossmatch 03/30/21 03/30/21 03/30/21 Range/Units 00:05 02:08 03:07 WBC (3.8-10.6) k/uL RBC (4.30-5.90) m/uL Hgb (13.0-17.5) gm/dL Hct (39.0-53.0) % Plt Count (150-450) k/uL Neutrophils # (1.3-7.7) k/uL Lymphocytes # (1.0-4.8) k/uL Monocytes # (0-1.0) k/uL ABG pH (7.35-7.45) ABG pCO2 (35-45) mmHg ABG pO2 (83-108) mmHg ABG Total CO2 (19-24) mmol/L ABG O2 Saturation (94-97) % Sodium (137-145) mmol/L Chloride (98-107) mmol/L Carbon Dioxide (22-30) mmol/L BUN (9-20) mg/dL Glucose (74-99) mg/dL POC Glucose (mg/dL) 116 H 143 H 143 H (75-99) mg/dL Calcium (8.4-10.2) mg/dL Magnesium (1.6-2.3) mg/dL Alkaline Phosphatase (38-126) U/L Total Protein (6.3-8.2) g/dL Albumin (3.5-5.0) g/dL Crossmatch 03/30/21 03/30/21 03/30/21 Range/Units 04:02 04:05 04:30 WBC 16.2 H (3.8-10.6) k/uL RBC 3.43 L (4.30-5.90) m/uL Hgb 10.1 L (13.0-17.5) gm/dL Hct 30.8 L (39.0-53.0) % Plt Count 149 L (150-450) k/uL Neutrophils # 14.3 H (1.3-7.7) k/uL Lymphocytes # 0.7 L (1.0-4.8) k/uL Monocytes # 1.1 H (0-1.0) k/uL ABG pH (7.35-7.45) ABG pCO2 (35-45) mmHg ABG pO2 (83-108) mmHg ABG Total CO2 (19-24) mmol/L ABG O2 Saturation (94-97) % Sodium 133 L (137-145) mmol/L Chloride 109 H (98-107) mmol/L Carbon Dioxide 19 L (22-30) mmol/L BUN 24 H (9-20) mg/dL Glucose 134 H (74-99) mg/dL POC Glucose (mg/dL) 140 H (75-99) mg/dL Calcium 7.7 L (8.4-10.2) mg/dL Magnesium 2.4 H (1.6-2.3) mg/dL Alkaline Phosphatase 33 L (38-126) U/L Total Protein 4.7 L (6.3-8.2) g/dL Albumin 2.8 L (3.5-5.0) g/dL Crossmatch 03/30/21 03/30/21 03/30/21 Range/Units 05:07 06:32 07:13 WBC (3.8-10.6) k/uL RBC (4.30-5.90) m/uL Hgb (13.0-17.5) gm/dL Hct (39.0-53.0) % Plt Count (150-450) k/uL Neutrophils # (1.3-7.7) k/uL Lymphocytes # (1.0-4.8) k/uL Monocytes # (0-1.0) k/uL ABG pH (7.35-7.45) ABG pCO2 (35-45) mmHg ABG pO2 (83-108) mmHg ABG Total CO2 (19-24) mmol/L ABG O2 Saturation (94-97) % Sodium (137-145) mmol/L Chloride (98-107) mmol/L Carbon Dioxide (22-30) mmol/L BUN (9-20) mg/dL Glucose (74-99) mg/dL POC Glucose (mg/dL) 119 H 108 H 121 H (75-99) mg/dL Calcium (8.4-10.2) mg/dL Magnesium (1.6-2.3) mg/dL Alkaline Phosphatase (38-126) U/L Total Protein (6.3-8.2) g/dL Albumin (3.5-5.0) g/dL Crossmatch 03/30/21 03/30/21 Range/Units 08:21 11:16 WBC (3.8-10.6) k/uL RBC (4.30-5.90) m/uL Hgb (13.0-17.5) gm/dL Hct (39.0-53.0) % Plt Count (150-450) k/uL Neutrophils # (1.3-7.7) k/uL Lymphocytes # (1.0-4.8) k/uL Monocytes # (0-1.0) k/uL ABG pH (7.35-7.45) ABG pCO2 (35-45) mmHg ABG pO2 (83-108) mmHg ABG Total CO2 (19-24) mmol/L ABG O2 Saturation (94-97) % Sodium (137-145) mmol/L Chloride (98-107) mmol/L Carbon Dioxide (22-30) mmol/L BUN (9-20) mg/dL Glucose (74-99) mg/dL POC Glucose (mg/dL) 187 H 157 H (75-99) mg/dL Calcium (8.4-10.2) mg/dL Magnesium (1.6-2.3) mg/dL Alkaline Phosphatase (38-126) U/L Total Protein (6.3-8.2) g/dL Albumin (3.5-5.0) g/dL Crossmatch Assessment and Plan Assessment: Impression: Status post aortic valve replacement. Postoperative day 1. Severe aortic regurgitation and mild aortic stenosis. Chronic dyspnea on exertion. History of moderate persistent bronchial asthma. History of type 1 diabetes, on insulin pump. History of hypothyroidism. Dyslipidemia. History of GERD. History of hypertension. Recommendation: Continue incentive spirometry, Continue bronchodilators. Resume his cardiac meds including aspirin statins and beta blockers. Ambulate. We will continue to follow. Time with Patient: Less than 30
[2021-03-30] MEDS ORDERED: LOSARTAN 25 MG TAB PO SCH (12:00)
[2021-03-30] MEDS: SODIUM CHLORIDE 0.9% 1,000 ML IV SCH (12:13)
[2021-03-30] MEDS: KETOROLAC 30 MG/ML 1 ML VIAL IVP SCH ×2 (12:16→17:34)
--- NOTE | 2021-03-30 12:23 | CONS ---
CONSULTATION This is a 70-year-old gentleman with severe aortic regurgitation and trileaflet aortic valve with possibly functional bicuspid. He had aortic valve replacement yesterday with a tissue valve uneventfully. He has been extubated. He has no obstructive CAD. He is doing well this morning, is not on any pressors. He is in a sinus rhythm, hemodynamically stable, with a fairly decent urine output. PAST MEDICAL HISTORY: 1. Aortic stenosis with calcified aortic valve. 2. No obstructive CAD. 3. History of hypertension. 4. Hypothyroidism, on replacement therapy. 5. Type 2 diabetes mellitus, on insulin. 6. History of hyperlipidemia. PHYSICAL EXAMINATION: On examination, blood pressure is 124/70. Pulse rate is about 80 per minute. HEENT unremarkable. Fundus was not examined by me. Neck is supple. There is no JVD. I do not hear a carotid bruit. Heart exam reveals S1, S2 with a short systolic murmur at the base. Lungs reveal bilateral diminished air entry. Abdomen is soft. Lower extremities reveal diminished pulses. Central nervous system grossly no focal deficits. IMPRESSION: 1. Status post aortic valve replacement for severe aortic regurgitation, probable functionally bicuspid valve. 2. Hypertension. 3. Hyperlipidemia. 4. Type 2 diabetes, on insulin. RECOMMENDATIONS: Same medical regimen. I will increase the dose of Lipitor to 40 mg daily and continue all his other medications as before. Will continue incentive spirometry and pulmonary toilet. Patient is progressing well. Thank you very much for the consult. MMODL / IJN: [id number] /
[2021-03-30 13:03] LABS: Glucose,Whole Blood 124 mg/dL (75-99)
[2021-03-30] MEDS ORDERED: METOPROLOL TARTRATE 12.5 MG TAB PO STA (13:42)
[2021-03-30 16:27] LABS: Glucose,Whole Blood 204 mg/dL (75-99)
[2021-03-30 17:28] LABS: Glucose,Whole Blood 245 mg/dL (75-99)
[2021-03-30] MEDS ORDERED: METOPROLOL TARTRATE 25 MG TAB PO STA (17:29)
[2021-03-30 18:02] LABS: Glucose,Whole Blood 220 mg/dL (75-99)
[2021-03-30 19:07] LABS: Glucose,Whole Blood 174 mg/dL (75-99)
[2021-03-30] MEDS: ATORVASTATIN 40 MG TAB PO SCH (20:04)
[2021-03-30] MEDS: MONTELUKAST 10 MG TAB PO SCH (20:04)
[2021-03-30] MEDS: SENNOSIDES-DOCUSATE SODIUM 1 EACH TAB PO SCH (20:04)
[2021-03-30] MEDS ORDERED: INSULIN DETEMIR (LEVEMIR) 100 UNIT/ML SYR SQ SCH (21:00)
[2021-03-30 22:11] LABS: Glucose,Whole Blood 128 mg/dL (75-99)
[2021-03-30] MEDS: METOPROLOL TARTRATE 25 MG TAB PO SCH (22:14)
[2021-03-30] MEDS: INSULIN REGULAR 100 UNIT in SODIUM CHLORIDE 0.9% 100 ML IV SCH (22:15)
[2021-03-30 23:26] LABS: Glucose,Whole Blood 140 mg/dL (75-99)
[2021-03-31] MEDS: SODIUM CHLORIDE 0.9% 1,000 ML IV SCH ×2 (00:18→09:49)
[2021-03-31 00:24] LABS: Glucose,Whole Blood 148 mg/dL (75-99)
[2021-03-31] MEDS: HEPARIN SODIUM,PORCINE/PF 5,000 UNIT/0.5 ML SYRINGE SQ SCH ×4 (01:02→21:05)
[2021-03-31] MEDS: KETOROLAC 30 MG/ML 1 ML VIAL IVP SCH (01:02)
[2021-03-31 01:11] LABS: Glucose,Whole Blood 136 mg/dL (75-99)
[2021-03-31 04:19] LABS: Glucose,Whole Blood 133 mg/dL (75-99)
[2021-03-31 04:42] LABS: Basophils # (A) 0.1 k/uL (0-0.2); Basophils % (A) 0 %; Eosinophils # (A) 0.1 k/uL (0-0.7); Eosinophils % (A) 1 %; HCT 26.6 % (39.0-53.0); HGB 8.8 gm/dL (13.0-17.5); Lymphocytes # (A) 1.5 k/uL (1.0-4.8); Lymphocytes % (A) 11 %; MCH 29.3 pg (25.0-35.0); MCHC 33.2 g/dL (31.0-37.0); MCV 88.2 fL (80.0-100.0); Mean Platelet Volume 8.3; Monocytes % (A) 8 %; Neutrophils # (A) 10.1 k/uL (1.3-7.7); Neutrophils % (A) 78 %; Platelet Count 117 k/uL (150-450); RBC 3.02 m/uL (4.30-5.90); RDW 14.7 % (11.5-15.5); WBC 12.9 k/uL (3.8-10.6)
[2021-03-31 04:56] LABS: Ionized Calcium 4.7 mg/dL (4.5-5.3)
[2021-03-31 05:04] LABS: Albumin 2.7 g/dL (3.5-5.0); Calcium 8.2 mg/dL (8.4-10.2); Potassium 5.1 mmol/L (3.5-5.1); Total Bilirubin 0.6 mg/dL (0.2-1.3); Total Protein 4.8 g/dL (6.3-8.2)
[2021-03-31 06:37] LABS: Glucose,Whole Blood 133 mg/dL (75-99)
[2021-03-31] MEDS: LEVOTHYROXINE 75 MCG TAB PO SCH (07:05)
[2021-03-31] MEDS: PANTOPRAZOLE 40 MG TABLET PO SCH (07:06)
[2021-03-31] MEDS ORDERED: DEXTROSE/WATER 1 250ML.BAG with DOPamine DRIP 800 MG IV SCH (07:30)
--- NOTE | 2021-03-31 07:39 | P.PN ---
Subjective Progress Note Date: 03/31/21 Principal diagnosis: Aortic valve disorder with predominant aortic valve regurgitation, evidence of bicuspid aortic valve with incomplete fusion of right and non-coronary cusps. P revious medical history of hypertension, hyperlipidemia, Type 1 insulin- dependent diabetes, asthma with recent exacerbation treated with steroids, hypothyroid, GERD and family history of premature coronary artery disease with father from myocardial infarction at 56 years old. Preoperative nasal screen positive for MSSA POD #2 aortic valve replacement using a 25 mm Inspiris pericardial bioprosthesis, exclusion of the left atrial appendage using a 35 mm AtriClip, intraoperative transesophageal echocardiogram and epi-aortic scanning Postoperative acute blood loss anemia and thrombocytopenia, expected given hemodilution, cardiopulmonary bypass pump Acute kidney injury, unexpected The patient was seen and examined this morning sitting up in a recliner in the intensive care unit in no acute distress. Complains of post surgical pain mostly controlled with current medication regimen, denies shortness of breath. Currently in sinus rhythm, hemodynamically stable. Right internal jugular Cordis, left radial arterial line, mediastinal/right pleural chest tubes all remain. BUN/creatinine this AM 40/2.34, up from yesterday. Urine output remains low at 15-25 mL/hr overnight. Otherwise no other concerns. Objective - Vital Signs Vital signs: Vital Signs Temp 98.4 F 03/31/21 04:00 Pulse 86 03/31/21 06:00 Resp 19 03/31/21 06:00 BP 138/80 03/31/21 06:00 Pulse Ox 96 03/31/21 06:00 Intake & Output 03/30/21 03/31/21 03/31/21 18:59 06:59 18:59 Intake Total 518.652 0919.048 Output Total 673 285 Balance 694.952 9356.048 Weight 114.1 kg 99.1 kg Intake: IV 915 606 CO/CI 160 Pressure Bag 105 66 Sodium Chloride 0.9% 1, 550 440 000 ml @ 20 mls/hr IV . Q24H [facility] Rx#:[id number] ceFAZolin 2 gm In Sodium 100 100 Chloride 0.9% 50 ml @ 100 mls/hr IVPB Q8HR [facility] Rx# :[id number] Intake, IV Titration 36.900 19.048 Amount Insulin Regular 100 unit 36.900 19.048 In Sodium Chloride 0.9% 100 ml @ Per Protocol IV .Q0M [facility] Rx#:[id number] Oral 800 Output: Chest Tube Drainage 310 110 Mediastinal/Left Pleural 50 60 Right Pleural 260 50 Urine 363 175 Other: Voiding Method Indwelling Catheter Indwelling Catheter ABP, PAP, CO, CI - Last Documented Arterial Blood Pressure 167/72 Pulmonary Artery Pressure 48/25 Cardiac Output 5.1 Cardiac Index 2.4 - Exam CONSTITUTIONAL: Appears comfortable, cooperative, no acute distress RESPIRATORY: Lungs sounds diminished bilaterally. Respirations even, nonlabored. Currently on room air with oxygen saturation 91-95%. Able to achieve 1250 mL on incentive spirometry. Strong cough. CARDIOVASCULAR: S1, S2 present. Regular rate and rhythm, sinus rhythm on telemetry. Sternum stable. Palpable peripheral pulses bilaterally. Trace generalized edema present. No calf pain or tenderness noted. Heart hugger in place with patient demonstrating appropriate use. Antiembolism stockings, SCDs present. GASTROINTESTINAL: Abdomen soft, nontender, nondistended. Active bowel sounds present 4 quadrants. Tolerating clear liquids. Positive flatus GENITOURINARY: Oropeza present draining clear, yellow urine. Output overnight 15-25 mL per hour INTEGUMENTARY: Skin is warm and dry with evidence of good perfusion. Anterior chest incision well approximated and covered with dry intact dressing. NEUROLOGIC: Cranial nerves II through XII intact MUSKULOSKELETAL: Able to move all extremities, strength equal bilaterally, gait normal PSYCHIATRIC: Alert and oriented to person place and time, appropriate affect, intact judgment and insight INVASIVE LINES AND TUBES: Mediastinal/right pleural chest tubes present and connected to wall suction, no air leaks present. Mediastinal tube with 20 mL serosanguineous drainage overnight, 150 mL in the last 24 hours. Right pleural chest tube with 20 mL serosanguineous drainage overnight, 250 mL in the last 24 hours. Atrial epicardial pacemaker wires present, grounded. Right internal jugular Cordis, left radial arterial line present. - Allied health notes Allied health notes reviewed: nursing - Labs CBC & Chem 7: 03/31/21 04:35 03/31/21 04:35 Labs: Abnormal Lab Results - Last 24 Hours (Table) 03/25/21 03/30/21 03/30/21 Range/Units 09:04 07:13 08:21 WBC (3.8-10.6) k/uL RBC (4.30-5.90) m/uL Hgb (13.0-17.5) gm/dL Hct (39.0-53.0) % Plt Count (150-450) k/uL Neutrophils # (1.3-7.7) k/uL Sodium (137-145) mmol/L Carbon Dioxide (22-30) mmol/L BUN (9-20) mg/dL Creatinine (0.66-1.25) mg/dL Glucose (74-99) mg/dL POC Glucose (mg/dL) 121 H 187 H (75-99) mg/dL Calcium (8.4-10.2) mg/dL Total Protein (6.3-8.2) g/dL Albumin (3.5-5.0) g/dL Crossmatch See Detail 03/30/21 03/30/21 03/30/21 Range/Units 11:16 13:02 16:25 WBC (3.8-10.6) k/uL RBC (4.30-5.90) m/uL Hgb (13.0-17.5) gm/dL Hct (39.0-53.0) % Plt Count (150-450) k/uL Neutrophils # (1.3-7.7) k/uL Sodium (137-145) mmol/L Carbon Dioxide (22-30) mmol/L BUN (9-20) mg/dL Creatinine (0.66-1.25) mg/dL Glucose (74-99) mg/dL POC Glucose (mg/dL) 157 H 124 H 204 H (75-99) mg/dL Calcium (8.4-10.2) mg/dL Total Protein (6.3-8.2) g/dL Albumin (3.5-5.0) g/dL Crossmatch 03/30/21 03/30/21 03/30/21 Range/Units 17:26 18:01 19:04 WBC (3.8-10.6) k/uL RBC (4.30-5.90) m/uL Hgb (13.0-17.5) gm/dL Hct (39.0-53.0) % Plt Count (150-450) k/uL Neutrophils # (1.3-7.7) k/uL Sodium (137-145) mmol/L Carbon Dioxide (22-30) mmol/L BUN (9-20) mg/dL Creatinine (0.66-1.25) mg/dL Glucose (74-99) mg/dL POC Glucose (mg/dL) 245 H 220 H 174 H (75-99) mg/dL Calcium (8.4-10.2) mg/dL Total Protein (6.3-8.2) g/dL Albumin (3.5-5.0) g/dL Crossmatch 03/30/21 03/30/21 03/31/21 Range/Units 22:09 23:25 00:17 WBC (3.8-10.6) k/uL RBC (4.30-5.90) m/uL Hgb (13.0-17.5) gm/dL Hct (39.0-53.0) % Plt Count (150-450) k/uL Neutrophils # (1.3-7.7) k/uL Sodium (137-145) mmol/L Carbon Dioxide (22-30) mmol/L BUN (9-20) mg/dL Creatinine (0.66-1.25) mg/dL Glucose (74-99) mg/dL POC Glucose (mg/dL) 128 H 140 H 148 H (75-99) mg/dL Calcium (8.4-10.2) mg/dL Total Protein (6.3-8.2) g/dL Albumin (3.5-5.0) g/dL Crossmatch 03/31/21 03/31/21 03/31/21 Range/Units 01:09 04:15 04:35 WBC 12.9 H (3.8-10.6) k/uL RBC 3.02 L (4.30-5.90) m/uL Hgb 8.8 L (13.0-17.5) gm/dL Hct 26.6 L (39.0-53.0) % Plt Count 117 L (150-450) k/uL Neutrophils # 10.1 H (1.3-7.7) k/uL Sodium (137-145) mmol/L Carbon Dioxide (22-30) mmol/L BUN (9-20) mg/dL Creatinine (0.66-1.25) mg/dL Glucose (74-99) mg/dL POC Glucose (mg/dL) 136 H 133 H (75-99) mg/dL Calcium (8.4-10.2) mg/dL Total Protein (6.3-8.2) g/dL Albumin (3.5-5.0) g/dL Crossmatch 03/31/21 03/31/21 Range/Units 04:35 06:36 WBC (3.8-10.6) k/uL RBC (4.30-5.90) m/uL Hgb (13.0-17.5) gm/dL Hct (39.0-53.0) % Plt Count (150-450) k/uL Neutrophils # (1.3-7.7) k/uL Sodium 130 L (137-145) mmol/L Carbon Dioxide 19 L (22-30) mmol/L BUN 40 H (9-20) mg/dL Creatinine 2.34 H (0.66-1.25) mg/dL Glucose 121 H (74-99) mg/dL POC Glucose (mg/dL) 133 H (75-99) mg/dL Calcium 8.2 L (8.4-10.2) mg/dL Total Protein 4.8 L (6.3-8.2) g/dL Albumin 2.7 L (3.5-5.0) g/dL Crossmatch - Imaging and Cardiology Chest x-ray: image reviewed Assessment and Plan Assessment: 1. Aortic valve disorder with predominant aortic valve regurgitation, evidence of bicuspid aortic valve with incomplete fusion of right and non-coronary cusps, status post aortic valve replacement 2. History of hypertension 3. History of hyperlipidemia, treated, cholesterol 161, LDL 73, triglycerides 56 4. Insulin-dependent diabetes, type I with insulin pump, preoperative hemoglobin A1c 7.6% 5. Asthma with recent exacerbation treated with steroids and antibiotic, moderate restrictive disease with preoperative FEV1 59% of predicted 6. Hypothyroid 7. GERD 8. Family history of premature coronary artery disease with father from myocardial infarction at 56 years old 9. Vaccinated with Moderna, last dose June 2020 10. Preoperative nasal screen positive for MSSA 11. Postoperative acute blood loss anemia and thrombocytopenia, expected 12. Acute kidney injury Plan: 1. Continue aspirin, statin, Plavix, beta caroline therapy. Will increase beta caroline therapy as tolerated. DC cozaar, add hydralazine for afterload reduction 2. Encourage incentive spirometry use 10 times every hour while awake. Bronchodilators, inhaled steroids per pulmonology 3. Increase activity, ambulate as tolerated. PT/OT/cardiac rehab consulted 4. Will monitor daily labs and x-rays. Electrolyte replacement per protocol. 5. GI/DVT prophylaxis 6. Pain control with current medication regimen. Toradol DC'd due to ARNIE 7. Insulin management per primary care service. Patient needs tight blood sugar control to promote healing and prevent infection 8. Continue Cordis to continuous CVP monitoring 9. Will discontinue chest tubes 10. Continue Oropeza catheter for another 24 hours for strict accurate intake and output. Daily weights 11. Will start renal dose dopamine, consult nephrology 12. Continue home dose of Synthroid, Singulair 13. More recommendations to follow based on patient's progress Time with Patient: Greater than 30
[2021-03-31] MEDS: hydrALAZINE HCL 25 MG TAB PO SCH ×4 (07:44→21:05)
[2021-03-31] MEDS: METOPROLOL TARTRATE 25 MG TAB PO SCH ×3 (07:45→21:06)
[2021-03-31] MEDS: CLOPIDOGREL 75 MG TAB PO SCH (07:45)
[2021-03-31] MEDS: ASPIRIN 81 MG PO SCH (07:45)
[2021-03-31] MEDS: BUDESONIDE 1 MG/2 ML NEBU INHALATION SCH ×2 (08:05→19:35)
[2021-03-31] MEDS: IPRATROPIUM-ALBUTEROL 3 ML NEB INHALATION SCH ×4 (08:05→19:34)
[2021-03-31 08:11] LABS: Glucose,Whole Blood 137 mg/dL (75-99)
[2021-03-31] MEDS ORDERED: ALBUMIN HUMAN 5% 250 ML in EMPTY BAG 1 BAG IVPB STA (09:03)
--- NOTE | 2021-03-31 09:13 | PN ---
PROGRESS NOTE This is a 70-year-old gentleman who underwent aortic valve replacement for severe aortic insufficiency. He is doing well. His creatinine, however, has gone up. He has underlying type 2 diabetes and hypertension. His creatinine has gone up significantly. He has no major symptoms. Urine output has also decreased somewhat. I think clinically patient may be dry. I am recommending 75 mL of normal saline IV fluids. Also will seek nephrology input. He has no chest pain and his breathing are better. He feels more alert. His pain has also improved. He is in sinus rhythm. No JVD. S1- S2 heard normally. Short systolic murmur noted. Lungs reveal improved air entry. Abdomen is soft. Lower extremities reveal diminished pulses. IMPRESSION: Would recommend cautious hydration, nephrology and input. Patient's creatinine is up and he has diabetes. We will avoid any MONIQUE or ARB inhibitors. Discussed my thoughts with the patient. MMODL / IJN: [id number] /
--- NOTE | 2021-03-31 09:48 | XR ---
EXAMINATION TYPE: XR chest 1V portable DATE OF EXAM: 03/31/2021 COMPARISON: Chest x-ray 03/30/2021 HISTORY: Postop cardiac surgery chest tube TECHNIQUE: Single frontal view of the chest is obtained. FINDINGS: Posterior chest tube again noted on the right, there are mediastinal drains in place. Lanny ent is post median sternotomy, cardiac valve replacement, left atrial appendage clip placement. There is no evident pneumothorax. Right jugular sheath is noted, situated catheter has been removed. Bibas ilar density is similar. Cardiac mediastinal silhouette shows no significant change. Exams expiratory and rotated. IMPRESSION: Pacer atelectasis, difficult to exclude infusion.
[2021-03-31] MEDS: MUPIROCIN 2% OINT 22 GM TUBE NASAL SCH ×2 (09:49→21:07)
[2021-03-31 09:54] LABS: Glucose,Whole Blood 178 mg/dL (75-99)
[2021-03-31] MEDS ORDERED: LOSARTAN 25 MG TAB PO SCH (12:00)
[2021-03-31 12:03] LABS: Glucose,Whole Blood 191 mg/dL (75-99)
[2021-03-31] MEDS ORDERED: AMIODARONE IN DEXTROSE,ISO-OSM 360 MG/200 ML PLAST..BAG IV ONE (12:30)
[2021-03-31] MEDS ORDERED: AMIODARONE IN DEXTROSE,ISO-OSM 150 MG/100 ML PLAST..BAG IV ONE (12:30)
[2021-03-31] MEDS: INSULIN ASPART (NovoLOG) 100 UNIT/ML VIAL SQ SCH ×4 (12:34→21:17)
[2021-03-31] MEDS: DEXTROSE 5% IN WATER 100 ML with AMIODARONE 150 MG IV PRN ×3 (12:37→16:40)
--- NOTE | 2021-03-31 12:45 | P.PN ---
Subjective Progress Note Date: 03/31/21 Principal diagnosis: Status post aortic valve replacement, postoperative day #2 This is a 70-year-old white male with history of diabetes, patient has insulin pump place, patient is also known to have history of asthma, hypertension, recent 2-D echo showed aortic valve regurgitation, and the patient was complaining of dyspnea on exertion. Initially his shortness of breath was blamed on his asthma, however further workup was done, patient had MIKAEL showing severe aortic valve regurgitation, mild aortic stenosis, ejection fraction of 45%, and he was also noted to have dilatation of the left ventricle and moderate hypertrophy. Patient was seen by cardiothoracic surgery on consultation, and today he underwent aortic valve replacement, patient was sent to the ICU on mechanical ventilation, and at the time I evaluated the patient, patient was already on weaning mode of mechanical ventilation using pressure support of 8 and PEEP of 8. Patient was actually on CPAP, and he was noted to be doing well. ABG was excellent, and shortly after my evaluation, I recommended extubating the patient. And this was done uneventfully. Chest x-ray showed no evidence of active disease. Labs were all reviewed, ABG was also reviewed. Patient was reevaluated today on 03/30/21, remains in the ICU, patient was extubated last night at 17:40 p.m., tolerated the extubation well. Patient is sitting at a bedside chair, in no distress. Chest x-ray today is reassuring with minimal expected postoperative atelectasis. Patient is on few liters nasal cannula, relatively asymptomatic, doing well with incentive spirometry. Achieving over 1000 mL. Patient is hemodynamically stable, not requiring any inotropes or any pressors. Continues to have right internal jugular Cordis, continues to have mediastinal/right pleural chest tubes remained, and he has a left radial arterial line. WBC count is 16.2 hemoglobin is 10.1 electrolytes are normal. Renal profile is normal. Reevaluated today on 03/31/21, patient remains in the ICU, he is now postoperative day #2. Patient is doing fairly well clinically however his renal functioning is worse today, and that being addressed accordingly, diuretics are presently on hold, patient is not on any nephrotoxic medications. Dopamine was started by cardiovascular surgery and renal perfusion dose. Clinically the patient is doing better, denies any pulmonary symptoms no cough no wheezing no shortness of breath, urine output is roughly about 15-25 ML per hour. Hemodynamically the patient is stable. He is on room air, O2 saturations 94% on room air. X-ray showed mostly bibasilar atelectasis. Objective - Vital Signs Vital signs: Vital Signs Temp 98.0 F 03/31/21 04:00 Pulse 144 H 03/31/21 12:30 Resp 24 03/31/21 12:30 BP 148/95 03/31/21 12:30 Pulse Ox 94 L 03/31/21 12:30 Intake & Output 03/30/21 03/31/21 03/31/21 18:59 06:59 18:59 Intake Total 986.984 3349.048 740 Output Total 673 285 260 Balance 157.366 3492.048 480 Weight 114.1 kg 99.1 kg Intake: IV 915 606 370 CO/CI 160 Pressure Bag 105 66 30 Sodium Chloride 0.9% 1, 550 440 340 000 ml @ 75 mls/hr IV . [id number] [facility] Rx#:[id number] ceFAZolin 2 gm In Sodium 100 100 Chloride 0.9% 50 ml @ 100 mls/hr IVPB Q8HR [facility] Rx# :[id number] Intake, IV Titration 36.900 19.048 250 Amount Albumin Human 5% 250 ml 250 In Empty Bag 1 bag @ 250 mls/hr IVPB ONCE [facility] Rx#: [id number] Insulin Regular 100 unit 36.900 19.048 In Sodium Chloride 0.9% 100 ml @ Per Protocol IV .Q0M [facility] Rx#:[id number] Oral 1200 120 Output: Chest Tube Drainage 310 110 0 Mediastinal/Left Pleural 50 60 0 Right Pleural 260 50 0 Urine 363 175 260 Other: Voiding Method Indwelling Catheter Indwelling Catheter Indwelling Catheter ABP, PAP, CO, CI - Last Documented Arterial Blood Pressure 178/66 Pulmonary Artery Pressure 48/25 Cardiac Output 5.1 Cardiac Index 2.4 - Exam CONSTITUTIONAL: Revealed a 70-year-old white male in no distress, extremely pleasant. On room air. RESPIRATORY: Symmetrical chest expansion, diminished at the bases, no crackles or rhonchi or wheezes. CARDIOVASCULAR: Distant S1 and S2, no S3 gallop, 2/6 systolic murmur thought the precordium. GASTROINTESTINAL: Soft nontender no megaly no rebound no guarding. INTEGUMENTARY: No rashes. No areas of erythema. NEUROLOGIC: Alert and oriented 3 focal deficits. MUSKULOSKELETAL: Deformities and no limitation in range of motion. PSYCHIATRIC: Normal mood, affect and normal mental status examination. - Labs CBC & Chem 7: 03/31/21 04:35 03/31/21 04:35 Labs: Abnormal Lab Results - Last 24 Hours (Table) 03/25/21 03/30/21 03/30/21 Range/Units 09:04 13:02 16:25 WBC (3.8-10.6) k/uL RBC (4.30-5.90) m/uL Hgb (13.0-17.5) gm/dL Hct (39.0-53.0) % Plt Count (150-450) k/uL Neutrophils # (1.3-7.7) k/uL Sodium (137-145) mmol/L Carbon Dioxide (22-30) mmol/L BUN (9-20) mg/dL Creatinine (0.66-1.25) mg/dL Glucose (74-99) mg/dL POC Glucose (mg/dL) 124 H 204 H (75-99) mg/dL Calcium (8.4-10.2) mg/dL Total Protein (6.3-8.2) g/dL Albumin (3.5-5.0) g/dL Crossmatch See Detail 03/30/21 03/30/21 03/30/21 Range/Units 17:26 18:01 19:04 WBC (3.8-10.6) k/uL RBC (4.30-5.90) m/uL Hgb (13.0-17.5) gm/dL Hct (39.0-53.0) % Plt Count (150-450) k/uL Neutrophils # (1.3-7.7) k/uL Sodium (137-145) mmol/L Carbon Dioxide (22-30) mmol/L BUN (9-20) mg/dL Creatinine (0.66-1.25) mg/dL Glucose (74-99) mg/dL POC Glucose (mg/dL) 245 H 220 H 174 H (75-99) mg/dL Calcium (8.4-10.2) mg/dL Total Protein (6.3-8.2) g/dL Albumin (3.5-5.0) g/dL Crossmatch 03/30/21 03/30/21 03/31/21 Range/Units 22:09 23:25 00:17 WBC (3.8-10.6) k/uL RBC (4.30-5.90) m/uL Hgb (13.0-17.5) gm/dL Hct (39.0-53.0) % Plt Count (150-450) k/uL Neutrophils # (1.3-7.7) k/uL Sodium (137-145) mmol/L Carbon Dioxide (22-30) mmol/L BUN (9-20) mg/dL Creatinine (0.66-1.25) mg/dL Glucose (74-99) mg/dL POC Glucose (mg/dL) 128 H 140 H 148 H (75-99) mg/dL Calcium (8.4-10.2) mg/dL Total Protein (6.3-8.2) g/dL Albumin (3.5-5.0) g/dL Crossmatch 03/31/21 03/31/21 03/31/21 Range/Units 01:09 04:15 04:35 WBC 12.9 H (3.8-10.6) k/uL RBC 3.02 L (4.30-5.90) m/uL Hgb 8.8 L (13.0-17.5) gm/dL Hct 26.6 L (39.0-53.0) % Plt Count 117 L (150-450) k/uL Neutrophils # 10.1 H (1.3-7.7) k/uL Sodium (137-145) mmol/L Carbon Dioxide (22-30) mmol/L BUN (9-20) mg/dL Creatinine (0.66-1.25) mg/dL Glucose (74-99) mg/dL POC Glucose (mg/dL) 136 H 133 H (75-99) mg/dL Calcium (8.4-10.2) mg/dL Total Protein (6.3-8.2) g/dL Albumin (3.5-5.0) g/dL Crossmatch 03/31/21 03/31/21 03/31/21 Range/Units 04:35 06:36 08:10 WBC (3.8-10.6) k/uL RBC (4.30-5.90) m/uL Hgb (13.0-17.5) gm/dL Hct (39.0-53.0) % Plt Count (150-450) k/uL Neutrophils # (1.3-7.7) k/uL Sodium 130 L (137-145) mmol/L Carbon Dioxide 19 L (22-30) mmol/L BUN 40 H (9-20) mg/dL Creatinine 2.34 H (0.66-1.25) mg/dL Glucose 121 H (74-99) mg/dL POC Glucose (mg/dL) 133 H 137 H (75-99) mg/dL Calcium 8.2 L (8.4-10.2) mg/dL Total Protein 4.8 L (6.3-8.2) g/dL Albumin 2.7 L (3.5-5.0) g/dL Crossmatch 03/31/21 03/31/21 Range/Units 09:52 12:02 WBC (3.8-10.6) k/uL RBC (4.30-5.90) m/uL Hgb (13.0-17.5) gm/dL Hct (39.0-53.0) % Plt Count (150-450) k/uL Neutrophils # (1.3-7.7) k/uL Sodium (137-145) mmol/L Carbon Dioxide (22-30) mmol/L BUN (9-20) mg/dL Creatinine (0.66-1.25) mg/dL Glucose (74-99) mg/dL POC Glucose (mg/dL) 178 H 191 H (75-99) mg/dL Calcium (8.4-10.2) mg/dL Total Protein (6.3-8.2) g/dL Albumin (3.5-5.0) g/dL Crossmatch Assessment and Plan Assessment: Impression: Status post aortic valve replacement. Postoperative day #2 Acute kidney injury, possibly cardiorenal in nature or related to poor renal perfusion hence the patient was placed on dopamine, and we'll profile will be monitored closely Severe aortic regurgitation and mild aortic stenosis. Chronic dyspnea on exertion. History of moderate persistent bronchial asthma. History of type 1 diabetes, on insulin pump. History of hypothyroidism. Dyslipidemia. History of GERD. History of hypertension. Recommendation: Agree with dopamine. At renal perfusion dose. Hold diuretics. Patient did not receive any diuretics today, but he didn't received diuretics yesterday. Continue incentive spirometry, Continue bronchodilators. Resume his cardiac meds including aspirin statins and beta blockers. Ambulate. We will continue to follow. Time with Patient: Less than 30
--- NOTE | 2021-03-31 15:17 | P.PN ---
Subjective Progress Note Date: 03/31/21 HISTORY OF PRESENT ILLNESS [age]-year-old male one of Dr. Marcano patient with past medical history of type 1 diabetes on insulin pump who had history of asthma seen Dr. Harry chapa on regular basis, known to have history of hypertension hyperlipidemia and hypothyroidism who was hospitalized in February 07 to 02/10/2021 for worsening dyspnea and shortness of breath ended up going for further workup including heart catheter and transthoracic echocardiogram and process is Optigene echocardiogram findings were consistent with severe aortic stenosis with no major coronary artery involvement. Patient ended up seeing cardiothoracic surgeon Dr. Torres and plan to do an elective aortic valve placement which was done successfully, patient was on mechanical ventilation for sure. Of time and was weaned off shortly after he seen pulmonary ready. His blood sugar has been better controlled currently with insulin drip which will be continued this point until patient is able to take oral intake with switch him to insulin pump. Patient otherwise stable hemodynamically doing well he is maintaining his on airway on the hardly any vasopressor. 03/30: Patient is seen in the intensive care unit. He is sitting up in a recliner appears to be comfortable. He is currently on insulin drip which we will plan to transition over to Levemir tonight and in about one day or so, patient will be transitioned to his insulin pump. Blood sugars are running 121- 187. Right cordis and chest tubes remains in place. Patient does have chest discomfort, no complaints of shortness of breath. surveillance monitor sinus rhythm with occasional PVCs. He has not required vasopressors. Patient has been afebrile. WBC 16.2, hemoglobin 10.1, platelet count 149. Sodium 133, potassium 5.1, chloride 109, CO2 19, BUN 24 and creatinine 0.82. Magnesium 2.4. Repeat chest x-ray reveals probable basilar atelectasis. Patient is reaching 1000 on incentive spirometry. 03/31: Remains in intensive care unit, he is up sitting in a chair and recliner and appears to be quite comfortable. Patient overall looks much improved from yesterday. His chest tubes are out. He is working today with physical therapy. He ate breakfast this morning. He denies any nausea vomiting or diarrhea. Chest discomfort is controlled. He denies any fever or chills, denies cough. He has been afebrile, heart rate in the 80s and 90s, blood pressure 111/57, pulse ox 95% on room air. Repeat blood work reveals WBC 12.9, hemoglobin 8.8, platelet count 117. Sodium 130, potassium 5.1, chloride 105, CO2 19, BUN 40 creatinine 2.34. Blood sugars are running 128 274. Patient did receive a dose of Levemir last evening but unclear why insulin drip was not discontinued. We will increase Levemir to 20 units and switch patient over to scale insulin with plan to transition him to insulin pump tomorrow. REVIEW OF SYSTEMS Constitutional: No fever, no chills, no night sweats. No weight change. No weakness, fatigue or lethargy. No daytime sleepiness. EENT: No headache. No blurred vision or double vision, no loss of vision. No loss of Hearing, no ringing in the ears, no dizziness. No nasal drainage or congestion. No epistaxis. No sore throat. Lungs: 3 chest tube at this point patient is awake able to maintain his on airway No shortness of breath, cough, no sputum production. No wheezing. Cardiovascular: Chest discomfort secondary to placement and left atrial appendage so far no complication no arrhythmia, no lower extremity edema. No palpitations. Abdominal: No abdominal pain. No nausea, vomiting. No diarrhea. No constipation. No bloody or tarry stools.. No loss of appetite. Genitourinary: No dysuria, increased frequency, urgency. No urinary retention. Musculoskeletal: No myalgias. No muscle weakness, no gait dysfunction, no frequent falls. No back pain. No neck pain. Integumentary: No wounds, no lesions. No rash or pruritus. No unusual bruising. No change in hair or nails. Neurologic: No aphasia. No facial droop. No change in mentation. No head injury. No headache. No paralysis. No paresthesia. Psychiatric: No depression. No anxiety. No mood swings. Endocrine: Mildly abnormal blood sugars. No weight change. PHYSICAL EXAMINATION Gen: This is a 70-year-old laying in recliner in ICU and appears to be in no ac pokagon distress. Patient's and daughter bedside. HEENT: Head is atraumatic, normocephalic. Pupils equal, round. Sclerae is anicteric. NECK: Supple. No JVD. No lymphadenopathy. No thyromegaly. LUNGS: His 3 chest tube at this point, decreased breath sound in the left side no rhonchi crackles or wheezes. HEART: Regular rate and rhythm. No murmur. ABDOMEN: Soft. Bowel sounds are present. No masses. No tenderness. EXTREMITIES: No pedal edema. No calf tenderness. NEUROLOGICAL: Patient is awake, alert and oriented x3. Cranial nerves 2 through 12 are grossly intact. ASSESSMENT AND PLAN 1. Post aortic valve placement and left at 2 appendage, postop day #2. Contin ue current plan per cardiothoracic team. 2 type 1 diabetes: Patient is on insulin pump at home, insulin drip will be discontinued and continue Levemir increased to 20 units, add NovoLog 3 units with meals and continue NovoLog insulin scale. 3 hypertension: Losartan discontinued, continue Lopressor 25 mg twice daily. 4 hyperlipidemia: Continue patient on atorvastatin 40 mg daily. 5 history of asthma: Patient seen pulmonary on regular basis and was on Pulmicort and Ventolin inhaler with continue nebulizer management as well this point. Patient is still on Singulair 10 mg a day which will be resumed. 6 hypothyroidism: Has been on levothyroxine 150 g daily resume medication. 7 severe GERD/GI prophylaxis: Patient will be continued on Pepcid 20 mg twice a day. 8 thrombocytopenia, POA. 9. Acute kidney injury. Continue to monitor renal function, avoid hypotension and nephrotoxic agents. 10. DVT prophylaxis: Continue patient on heparin 5000 units subcutaneous 3 times a day. Impression and plan of care have been directed as dictated by the signing physician. Maria R Topete nurse practitioner acting as scribe for signing physician. Objective - Vital Signs Vital signs: Vital Signs Temp 98.0 F 03/31/21 04:00 Pulse 90 03/31/21 11:43 Resp 33 H 03/31/21 11:00 BP 94/65 03/31/21 11:00 Pulse Ox 91 L 03/31/21 11:00 Intake & Output 03/30/21 03/31/21 03/31/21 18:59 06:59 18:59 Intake Total 194.720 1258.048 740 Output Total 673 285 260 Balance 353.279 1610.048 480 Weight 114.1 kg 99.1 kg Intake: IV 915 606 370 CO/CI 160 Pressure Bag 105 66 30 Sodium Chloride 0.9% 1, 550 440 340 000 ml @ 75 mls/hr IV . [id number] [facility] Rx#:[id number] ceFAZolin 2 gm In Sodium 100 100 Chloride 0.9% 50 ml @ 100 mls/hr IVPB Q8HR [facility] Rx# :[id number] Intake, IV Titration 36.900 19.048 250 Amount Albumin Human 5% 250 ml 250 In Empty Bag 1 bag @ 250 mls/hr IVPB ONCE [facility] Rx#: [id number] Insulin Regular 100 unit 36.900 19.048 In Sodium Chloride 0.9% 100 ml @ Per Protocol IV .Q0M [facility] Rx#:[id number] Oral 1200 120 Output: Chest Tube Drainage 310 110 0 Mediastinal/Left Pleural 50 60 0 Right Pleural 260 50 0 Urine 363 175 260 Other: Voiding Method Indwelling Catheter Indwelling Catheter Indwelling Catheter ABP, PAP, CO, CI - Last Documented Arterial Blood Pressure 153/57 Pulmonary Artery Pressure 48/25 Cardiac Output 5.1 Cardiac Index 2.4 - Labs CBC & Chem 7: 03/31/21 04:35 03/31/21 04:35 Labs: Abnormal Lab Results - Last 24 Hours (Table) 03/25/21 03/30/21 03/30/21 Range/Units 09:04 13:02 16:25 WBC (3.8-10.6) k/uL RBC (4.30-5.90) m/uL Hgb (13.0-17.5) gm/dL Hct (39.0-53.0) % Plt Count (150-450) k/uL Neutrophils # (1.3-7.7) k/uL Sodium (137-145) mmol/L Carbon Dioxide (22-30) mmol/L BUN (9-20) mg/dL Creatinine (0.66-1.25) mg/dL Glucose (74-99) mg/dL POC Glucose (mg/dL) 124 H 204 H (75-99) mg/dL Calcium (8.4-10.2) mg/dL Total Protein (6.3-8.2) g/dL Albumin (3.5-5.0) g/dL Crossmatch See Detail 03/30/21 03/30/21 03/30/21 Range/Units 17:26 18:01 19:04 WBC (3.8-10.6) k/uL RBC (4.30-5.90) m/uL Hgb (13.0-17.5) gm/dL Hct (39.0-53.0) % Plt Count (150-450) k/uL Neutrophils # (1.3-7.7) k/uL Sodium (137-145) mmol/L Carbon Dioxide (22-30) mmol/L BUN (9-20) mg/dL Creatinine (0.66-1.25) mg/dL Glucose (74-99) mg/dL POC Glucose (mg/dL) 245 H 220 H 174 H (75-99) mg/dL Calcium (8.4-10.2) mg/dL Total Protein (6.3-8.2) g/dL Albumin (3.5-5.0) g/dL Crossmatch 03/30/21 03/30/21 03/31/21 Range/Units 22:09 23:25 00:17 WBC (3.8-10.6) k/uL RBC (4.30-5.90) m/uL Hgb (13.0-17.5) gm/dL Hct (39.0-53.0) % Plt Count (150-450) k/uL Neutrophils # (1.3-7.7) k/uL Sodium (137-145) mmol/L Carbon Dioxide (22-30) mmol/L BUN (9-20) mg/dL Creatinine (0.66-1.25) mg/dL Glucose (74-99) mg/dL POC Glucose (mg/dL) 128 H 140 H 148 H (75-99) mg/dL Calcium (8.4-10.2) mg/dL Total Protein (6.3-8.2) g/dL Albumin (3.5-5.0) g/dL Crossmatch 03/31/21 03/31/21 03/31/21 Range/Units 01:09 04:15 04:35 WBC 12.9 H (3.8-10.6) k/uL RBC 3.02 L (4.30-5.90) m/uL Hgb 8.8 L (13.0-17.5) gm/dL Hct 26.6 L (39.0-53.0) % Plt Count 117 L (150-450) k/uL Neutrophils # 10.1 H (1.3-7.7) k/uL Sodium (137-145) mmol/L Carbon Dioxide (22-30) mmol/L BUN (9-20) mg/dL Creatinine (0.66-1.25) mg/dL Glucose (74-99) mg/dL POC Glucose (mg/dL) 136 H 133 H (75-99) mg/dL Calcium (8.4-10.2) mg/dL Total Protein (6.3-8.2) g/dL Albumin (3.5-5.0) g/dL Crossmatch 03/31/21 03/31/21 03/31/21 Range/Units 04:35 06:36 08:10 WBC (3.8-10.6) k/uL RBC (4.30-5.90) m/uL Hgb (13.0-17.5) gm/dL Hct (39.0-53.0) % Plt Count (150-450) k/uL Neutrophils # (1.3-7.7) k/uL Sodium 130 L (137-145) mmol/L Carbon Dioxide 19 L (22-30) mmol/L BUN 40 H (9-20) mg/dL Creatinine 2.34 H (0.66-1.25) mg/dL Glucose 121 H (74-99) mg/dL POC Glucose (mg/dL) 133 H 137 H (75-99) mg/dL Calcium 8.2 L (8.4-10.2) mg/dL Total Protein 4.8 L (6.3-8.2) g/dL Albumin 2.7 L (3.5-5.0) g/dL Crossmatch 03/31/21 Range/Units 09:52 WBC (3.8-10.6) k/uL RBC (4.30-5.90) m/uL Hgb (13.0-17.5) gm/dL Hct (39.0-53.0) % Plt Count (150-450) k/uL Neutrophils # (1.3-7.7) k/uL Sodium (137-145) mmol/L Carbon Dioxide (22-30) mmol/L BUN (9-20) mg/dL Creatinine (0.66-1.25) mg/dL Glucose (74-99) mg/dL POC Glucose (mg/dL) 178 H (75-99) mg/dL Calcium (8.4-10.2) mg/dL Total Protein (6.3-8.2) g/dL Albumin (3.5-5.0) g/dL Crossmatch
[2021-03-31 16:48] LABS: Glucose,Whole Blood 260 mg/dL (75-99)
[2021-03-31] MEDS: HYDROcodone/APAP 5-325MG 1 EACH TAB PO PRN (16:57)
--- NOTE | 2021-03-31 18:16 | CONS ---
CONSULTATION REASON FOR CONSULTATION: Renal failure. HISTORY OF PRESENT ILLNESS: Patient is a 70-year-old male who is postoperative day #2 after aortic valve replacement. He is currently seen in the ICU. Patient is noted to have an increase in serum creatinine at 2.3 from a reading of 0.8 yesterday. Upon review of his chart, it appears that patient had been on Toradol as well as Cozaar. His blood pressure had been slightly on the lower side with systolic noted at 93 on 03/30 around 6 p.m. However, that was only a single reading of low blood pressure. Otherwise, pressures have been around 140 to 150 mmHg. Urine output had dropped to zero to 10 mL/hour late last night and early this morning, and it seems to have picked up now to about 45 to 80 mL/hour. Patient has been started on IV fluids. He was also started on low-dose dopamine. Current blood pressures are on the higher side. The Toradol and Cozaar have been discontinued. Chest x-ray from this morning shows no significant pulmonary vascular congestion. PAST MEDICAL HISTORY: Hypertension, asthma, type 2 diabetes, hyperlipidemia, osteoarthritis, hypothyroidism, type 1 diabetes, maintained on insulin pump, seasonal allergies. PAST SURGICAL HISTORY: Cardiac catheterization, arthroscopy of the right knee, bilateral arthroscopic elbow surgeries, multiple ORIF and reconstruction of the pelvis in 2010 and tendon release in the fingers. SOCIAL HISTORY: Negative for smoking, drug abuse or alcohol abuse. MEDICATIONS: Medications prior to admission included atorvastatin, Singulair, Desyrel, Synthroid, vitamin C, Pepcid, aspirin, Stedman, losartan, Lasix, metoprolol, Flexeril. ALLERGIES: ALLERGIES include ASPIRIN, which causes rash and hives. PHYSICAL EXAMINATION: Patient is comfortable, awake, not in any acute distress. Alert, oriented x3. Blood pressure 153/57, heart rate 94 per minute. He is afebrile. EXAMINATION OF THE HEART: S1 and S2. EXAMINATION OF LUNGS: Bilateral breath sounds are heard. Decreased breath sounds at the bases. Abdomen is soft, non-tender. Examination of lower extremities shows edema 1+ bilaterally, upper and lower extremities. STAINED GLASS GLAZIER HELPER EXAM: Grossly intact. LABS: Sodium 130, potassium 5.1. Chloride is 105. CO2 is 19, BUN 40, creatinine 2.34, hemoglobin 8.8 grams/dL. ASSESSMENT: 1. Acute kidney injury, multifactorial, including use of NSAIDs in the setting of use of angiotensin receptor blockers with perhaps a component of hypotension, although there were only a couple of readings of lowish systolic blood pressure. Patient is appropriately off of the Toradol and Cozaar. He is maintained on IV fluids and he has been started on dopamine. Blood pressure is currently not low, and we can discontinue the dopamine as long as his blood pressure is not low. 2. Hypervolemic hyponatremia. 3. Mild metabolic acidosis associated with acute kidney injury. 4. Anemia postoperatively. Check iron profile if not done yet. 5. Status post aortic valve replacement, postoperative day #2. PLAN: Continue to avoid nephrotoxic agents. May discontinue dopamine if blood pressure is not low. As long as patient is able to tolerate oral intake, we can also decrease the IV fluids and eventually discontinue that. Repeat labs in a.m. Thank you for this consultation. Will continue to follow the patient with you during his hospitalization. MMMICAL / NITHYAN: [id number] /
[2021-03-31] MEDS ORDERED: ALBUMIN HUMAN 5% 250 ML in EMPTY BAG 1 BAG IVPB ONE (19:22)
[2021-03-31] MEDS ORDERED: INSULIN DETEMIR (LEVEMIR) 100 UNIT/ML SYR SQ SCH (21:00)
[2021-03-31] MEDS: SENNOSIDES-DOCUSATE SODIUM 1 EACH TAB PO SCH (21:05)
[2021-03-31] MEDS: MONTELUKAST 10 MG TAB PO SCH (21:05)
[2021-03-31] MEDS: ATORVASTATIN 40 MG TAB PO SCH (21:06)
[2021-03-31 21:15] LABS: Glucose,Whole Blood 394 mg/dL (75-99)
[2021-04-01] MEDS: HYDROcodone/APAP 5-325MG 1 EACH TAB PO PRN (05:23)
[2021-04-01] MEDS: SODIUM CHLORIDE 0.9% 1,000 ML IV SCH (05:23)
[2021-04-01 05:26] LABS: Basophils % (A) 0 %; Eosinophils # (A) 0.1 k/uL (0-0.7); Eosinophils % (A) 1 %; HCT 24.9 % (39.0-53.0); HGB 8.2 gm/dL (13.0-17.5); Lymphocytes % (A) 10 %; MCH 29.2 pg (25.0-35.0); MCHC 32.8 g/dL (31.0-37.0); Monocytes # (A) 0.6 k/uL (0-1.0); Monocytes % (A) 6 %; Neutrophils # (A) 8.8 k/uL (1.3-7.7); Neutrophils % (A) 82 %; Platelet Count 110 k/uL (150-450); RDW 14.2 % (11.5-15.5); WBC 10.7 k/uL (3.8-10.6)
[2021-04-01 05:38] LABS: Albumin 2.8 g/dL (3.5-5.0); Calcium 7.8 mg/dL (8.4-10.2); Potassium 4.9 mmol/L (3.5-5.1); Total Bilirubin 0.4 mg/dL (0.2-1.3); Total Protein 4.8 g/dL (6.3-8.2)
[2021-04-01] MEDS: LEVOTHYROXINE 75 MCG TAB PO SCH (06:48)
[2021-04-01] MEDS: PANTOPRAZOLE 40 MG TABLET PO SCH (06:48)
[2021-04-01] MEDS: INSULIN ASPART (NovoLOG) 100 UNIT/ML VIAL SQ SCH ×4 (06:48→14:18)
[2021-04-01 06:50] LABS: Glucose,Whole Blood 310 mg/dL (75-99)
[2021-04-01] MEDS ORDERED: CALCIUM GLUCONATE 1 GM in SODIUM CHLORIDE 0.9% 100 ML IVPB ONE (07:49)
[2021-04-01] MEDS: HEPARIN SODIUM,PORCINE/PF 5,000 UNIT/0.5 ML SYRINGE SQ SCH ×3 (08:17→19:56)
[2021-04-01] MEDS: hydrALAZINE HCL 25 MG TAB PO SCH ×2 (08:17→16:04)
[2021-04-01] MEDS: METOPROLOL TARTRATE 25 MG TAB PO SCH ×3 (08:18→19:57)
[2021-04-01] MEDS: CLOPIDOGREL 75 MG TAB PO SCH (08:18)
[2021-04-01] MEDS: AMIODARONE 200 MG TAB PO SCH ×2 (08:18→19:57)
[2021-04-01] MEDS: ASPIRIN 81 MG PO SCH (08:18)
[2021-04-01] MEDS: MUPIROCIN 2% OINT 22 GM TUBE NASAL SCH (08:21)
[2021-04-01] MEDS: BUDESONIDE 1 MG/2 ML NEBU INHALATION SCH ×2 (08:36→20:46)
[2021-04-01] MEDS: IPRATROPIUM-ALBUTEROL 3 ML NEB INHALATION SCH ×4 (08:36→20:46)
--- NOTE | 2021-04-01 09:12 | P.PN ---
Subjective Progress Note Date: 04/01/21 Principal diagnosis: Aortic valve disorder with predominant aortic valve regurgitation, evidence of bicuspid aortic valve with incomplete fusion of right and non-coronary cusps. P revious medical history of hypertension, hyperlipidemia, Type 1 insulin- dependent diabetes, asthma with recent exacerbation treated with steroids, hypothyroid, GERD and family history of premature coronary artery disease with father from myocardial infarction at 56 years old. Preoperative nasal screen positive for MSSA POD #3 aortic valve replacement using a 25 mm Inspiris pericardial bioprosthesis, exclusion of the left atrial appendage using a 35 mm AtriClip, intraoperative transesophageal echocardiogram and epi-aortic scanning Postoperative acute blood loss anemia and thrombocytopenia, expected given hemodilution, cardiopulmonary bypass pump Acute kidney injury, unexpected Postoperative atrial fibrillation, known common occurrence after open heart surgery The patient was seen and examined this morning sitting up in a recliner in the intensive care unit in no acute distress eating breakfast. States minimal postoperative surgical pain is controlled with current medication regimen, denies shortness of breath. Currently in sinus rhythm, hemodynamically stable. The patient did go into atrial fibrillation with rapid ventricular response yesterday, amiodarone protocol initiated, converted back to normal sinus rhythm and remains in sinus rhythm this morning. Right internal jugular Cordis, left radial arterial line remains. Creatinine improved to 1.48 this morning. Urine output picked up to 40-80 mL/hr overnight. The patient has ambulated with assistance. Otherwise no other concerns. Objective - Vital Signs Vital signs: Vital Signs Temp 98.1 F 04/01/21 04:00 Pulse 66 04/01/21 07:00 Resp 27 H 04/01/21 07:00 BP 158/69 04/01/21 07:00 Pulse Ox 98 04/01/21 07:00 Intake & Output 03/31/21 04/01/21 04/01/21 18:59 06:59 18:59 Intake Total 1672 1191 81 Output Total 840 685 60 Balance 832 506 21 Weight 101.5 kg Intake: IV 682 891 81 Pressure Bag 42 66 6 Sodium Chloride 0.9% 1, 640 825 75 000 ml @ 75 mls/hr IV . [id number] [facility] Rx#:[id number] Intake, IV Titration 550 250 Amount Albumin Human 5% 250 ml 250 In Empty Bag 1 bag @ 250 mls/hr IVPB ONCE ONE Rx#: [id number] Albumin Human 5% 250 ml 250 In Empty Bag 1 bag @ 250 mls/hr IVPB ONCE STA Rx#: [id number] Dextrose 5% in Water 100 300 ml @ 618 mls/hr IV .Q10M PRN with Amiodarone 150 mg Rx#:[id number] Oral 440 50 Output: Chest Tube Drainage 0 Mediastinal/Left Pleural 0 Right Pleural 0 Urine 840 685 60 Other: Voiding Method Indwelling Catheter Indwelling Catheter # Bowel Movements 1 ABP, PAP, CO, CI - Last Documented Arterial Blood Pressure 127/72 Pulmonary Artery Pressure 48/25 Cardiac Output 5.1 Cardiac Index 2.4 - Exam CONSTITUTIONAL: Appears comfortable, cooperative, no acute distress RESPIRATORY: Lungs sounds diminished bilaterally. Respirations even, nonlabored. Currently on room air with oxygen saturation 93%. Able to achieve 1250 mL on incentive spirometry. Strong cough. CARDIOVASCULAR: S1, S2 present. Regular rate and rhythm, sinus rhythm on telemetry. Sternum stable. Palpable peripheral pulses bilaterally. Trace generalized edema present. No calf pain or tenderness noted. Heart hugger in place with patient demonstrating appropriate use. Antiembolism stockings, SCDs present. GASTROINTESTINAL: Abdomen soft, nontender, nondistended. Active bowel sounds present 4 quadrants. Tolerating diet. Positive bowel movement GENITOURINARY: Oropeza present draining clear, yellow urine. Output overnight 4 0-80 mL per hour, 1465 mL in the last 24 hours INTEGUMENTARY: Skin is warm and dry with evidence of good perfusion. Anterior chest incision well approximated and covered with dry intact dressing. NEUROLOGIC: Cranial nerves II through XII intact MUSKULOSKELETAL: Able to move all extremities, strength equal bilaterally, gait normal PSYCHIATRIC: Alert and oriented to person place and time, appropriate affect, intact judgment and insight INVASIVE LINES AND TUBES: Atrial epicardial pacemaker wires present, grounded. Right internal jugular Cordis, left radial arterial line present. - Allied health notes Allied health notes reviewed: nursing - Labs CBC & Chem 7: 04/01/21 05:15 04/01/21 05:15 Labs: Abnormal Lab Results - Last 24 Hours (Table) 03/31/21 03/31/21 03/31/21 Range/Units 08:10 09:52 12:02 WBC (3.8-10.6) k/uL RBC (4.30-5.90) m/uL Hgb (13.0-17.5) gm/dL Hct (39.0-53.0) % Plt Count (150-450) k/uL Neutrophils # (1.3-7.7) k/uL Sodium (137-145) mmol/L Carbon Dioxide (22-30) mmol/L BUN (9-20) mg/dL Creatinine (0.66-1.25) mg/dL Glucose (74-99) mg/dL POC Glucose (mg/dL) 137 H 178 H 191 H (75-99) mg/dL Calcium (8.4-10.2) mg/dL AST (17-59) U/L ALT (4-49) U/L Total Protein (6.3-8.2) g/dL Albumin (3.5-5.0) g/dL 03/31/21 03/31/21 04/01/21 Range/Units 16:46 21:13 05:15 WBC 10.7 H (3.8-10.6) k/uL RBC 2.80 L (4.30-5.90) m/uL Hgb 8.2 L (13.0-17.5) gm/dL Hct 24.9 L (39.0-53.0) % Plt Count 110 L (150-450) k/uL Neutrophils # 8.8 H (1.3-7.7) k/uL Sodium (137-145) mmol/L Carbon Dioxide (22-30) mmol/L BUN (9-20) mg/dL Creatinine (0.66-1.25) mg/dL Glucose (74-99) mg/dL POC Glucose (mg/dL) 260 H 394 H (75-99) mg/dL Calcium (8.4-10.2) mg/dL AST (17-59) U/L ALT (4-49) U/L Total Protein (6.3-8.2) g/dL Albumin (3.5-5.0) g/dL 04/01/21 04/01/21 Range/Units 05:15 06:46 WBC (3.8-10.6) k/uL RBC (4.30-5.90) m/uL Hgb (13.0-17.5) gm/dL Hct (39.0-53.0) % Plt Count (150-450) k/uL Neutrophils # (1.3-7.7) k/uL Sodium 127 L (137-145) mmol/L Carbon Dioxide 16 L (22-30) mmol/L BUN 50 H (9-20) mg/dL Creatinine 1.48 H (0.66-1.25) mg/dL Glucose 299 H (74-99) mg/dL POC Glucose (mg/dL) 310 H (75-99) mg/dL Calcium 7.8 L (8.4-10.2) mg/dL AST 88 H (17-59) U/L ALT 51 H (4-49) U/L Total Protein 4.8 L (6.3-8.2) g/dL Albumin 2.8 L (3.5-5.0) g/dL - Imaging and Cardiology Chest x-ray: report reviewed, image reviewed Assessment and Plan Assessment: 1. Aortic valve disorder with predominant aortic valve regurgitation, evidence of bicuspid aortic valve with incomplete fusion of right and non-coronary cusps, status post aortic valve replacement 2. History of hypertension 3. History of hyperlipidemia, treated, cholesterol 161, LDL 73, triglycerides 56 4. Insulin-dependent diabetes, type I with insulin pump, preoperative hem oglobin A1c 7.6% 5. Asthma with recent exacerbation treated with steroids and antibiotic, moderate restrictive disease with preoperative FEV1 59% of predicted 6. Hypothyroid 7. GERD 8. Family history of premature coronary artery disease with father from myocardial infarction at 56 years old 9. Vaccinated with Moderna, last dose June 2020 10. Preoperative nasal screen positive for MSSA 11. Postoperative acute blood loss anemia and thrombocytopenia, expected 12. Acute kidney injury 13. Postoperative atrial fibrillation, known common occurrence after open heart surgery, status post left atrial appendage ligation Plan: 1. Continue aspirin, statin, Plavix, beta caroline therapy. Will increase beta caroline therapy as tolerated. Continue hydralazine for afterload reduction, increased to 50 mg every 8 hours 2. Continue amiodarone, will transition to oral amiodarone. No anticoagulation unless in a culture ventilation greater than 24 hours. 3. Encourage incentive spirometry use 10 times every hour while awake. Bronchodilators, inhaled steroids per pulmonology 4. Increase activity, ambulate as tolerated. PT/OT/cardiac rehab consulted 5. Will monitor daily labs and x-rays. Electrolyte replacement per protocol. No Lasix today 6. GI/DVT prophylaxis 7. Pain control with current medication regimen. 8. Insulin management per primary care service. Patient needs tight blood sugar control to promote healing and prevent infection 9. Discontinued Cordis, arterial line 10. Discontinue Oropeza catheter, may bladder scan and straight cath for greater than 300 mL residual 11. Strict accurate intake and output. Daily weights 12. Dopamine discontinued 13. Keep in ICU for 24 hours 14. More recommendations to follow based on patient's progress Time with Patient: Greater than 30
--- NOTE | 2021-04-01 09:26 | XR ---
EXAMINATION TYPE: XR chest 1V portable DATE OF EXAM: 04/01/2021 COMPARISON: 03/31/2021 HISTORY: Postop TECHNIQUE: Single frontal view of the chest is obtained. FINDINGS: Heart is enlarged and there is postsurgical change with bilateral infiltrate and pleural e ffusion. No pneumothorax. Arthropathy of the shoulders. Hyperinflation suggests COPD. IMPRESSION: Bilateral infiltrate and pleural effusion greater on the left stable.
--- NOTE | 2021-04-01 10:33 | PN ---
PROGRESS NOTE This gentleman underwent aortic valve replacement for severe aortic insufficiency. He was recovering very well. Yesterday he went into atrial fibrillation with a moderately rapid ventricular rate that lasted for a few hours, but he has converted to sinus rhythm. He is currently on IV amiodarone. His creatinine, which was elevated, has also come down to 1.48 with hydration and we will continue 75 mL/hour normal saline. He is in sinus rhythm, hemodynamically stable, doing well this morning. There is no JVD. S1-S2 heard normally. Systolic murmur at the base is audible. Lungs revealed improved air entry. Abdomen is soft. Lower extremities reveal diminished pulses. I would recommend that we continue hydration, switch him from IV to oral amiodarone 200 mg b.i.d. when the IV protocol is completed. Continue all his other medications. MMMICAL / NITHYAN: [id number] /
--- NOTE | 2021-04-01 11:39 | PN ---
PROGRESS NOTE Patient is seen for followup for acute kidney injury and hyponatremia. His renal function has improved significantly, with creatinine down to 1.48. Patient has had good urine output as well. Blood pressure is not low anymore and dopamine was discontinued. Patient remains on normal saline at 75 mL/hour. This morning sodium is down to 127. Overall, patient states he feels well. He denies any significant complaints. He feels he is getting stronger and he is eating fairly okay. Urine output noted at about 100 to 60 mL/hour. On examination today, blood pressure 153/70, heart rate 74 per minute. He is afebrile. EXAMINATION OF THE HEART: S1 and S2. EXAMINATION OF LUNGS: Bilateral breath sounds are heard. Decreased breath sounds at the bases. Abdomen is soft, non-tender. Examination of lower extremities shows edema 1+ bilaterally, upper and lower extremities. FILM CLEANER EXAM: Grossly intact. Labs show sodium 127, potassium 4.9, chloride 104. CO2 is 16, BUN 50, creatinine 1.48, hemoglobin 8.2 g/dL, albumin 2.8. ASSESSMENT: 1. Acute kidney injury, acute tubular necrosis, associated with hypotension, hypoperfusion, hemodynamic instability, currently improved with good urine output. Recommend discontinuation of normal saline and I will give a dose of IV Lasix for the hypervolemic hyponatremia. 2. Hyponatremia, currently hypervolemic. Expect improvement with discontinuation of saline and a small dose of IV Lasix. 3. Metabolic acidosis associated with saline administration as well as acute kidney injury. I will hold off on the oral sodium bicarb and expect improvement once the IV fluids are discontinued. 4. Status post aortic valve replacement, postoperative day number 3. 5. Atrial fibrillation with rapid ventricular response, now back to normal sinus rhythm, maintained on IV amiodarone. PLAN: Discontinue saline. Recommend giving Lasix 20 mg IV x1. Encourage increased oral protein intake and repeat labs in a.m. MMODL / IJN: [id number] /
[2021-04-01 11:41] LABS: Glucose,Whole Blood 298 mg/dL (75-99)
[2021-04-01] MEDS ORDERED: INSULIN ASPART (NovoLOG) 100 UNIT/ML VIAL SQ ONE ×2 (11:45→15:28)
[2021-04-01] MEDS ORDERED: INSULIN DETEMIR (LEVEMIR) 100 UNIT/ML SYR SQ SCH (11:45)
--- NOTE | 2021-04-01 12:21 | P.PN ---
Subjective Progress Note Date: 04/01/21 Principal diagnosis: Status post aortic valve replacement, postoperative day #3 This is a 70-year-old white male with history of diabetes, patient has insulin pump place, patient is also known to have history of asthma, hypertension, recent 2-D echo showed aortic valve regurgitation, and the patient was complaining of dyspnea on exertion. Initially his shortness of breath was blamed on his asthma, however further workup was done, patient had MIKAEL showing severe aortic valve regurgitation, mild aortic stenosis, ejection fraction of 45%, and he was also noted to have dilatation of the left ventricle and moderate hypertrophy. Patient was seen by cardiothoracic surgery on consultation, and today he underwent aortic valve replacement, patient was sent to the ICU on mechanical ventilation, and at the time I evaluated the patient, patient was already on weaning mode of mechanical ventilation using pressure support of 8 and PEEP of 8. Patient was actually on CPAP, and he was noted to be doing well. ABG was excellent, and shortly after my evaluation, I recommended extubating the patient. And this was done uneventfully. Chest x-ray showed no evidence of active disease. Labs were all reviewed, ABG was also reviewed. Patient was reevaluated today on 03/30/21, remains in the ICU, patient was extubated last night at 17:40 p.m., tolerated the extubation well. Patient is sitting at a bedside chair, in no distress. Chest x-ray today is reassuring with minimal expected postoperative atelectasis. Patient is on few liters nasal cannula, relatively asymptomatic, doing well with incentive spirometry. Achieving over 1000 mL. Patient is hemodynamically stable, not requiring any inotropes or any pressors. Continues to have right internal jugular Cordis, continues to have mediastinal/right pleural chest tubes remained, and he has a left radial arterial line. WBC count is 16.2 hemoglobin is 10.1 electrolytes are normal. Renal profile is normal. Reevaluated today on 03/31/21, patient remains in the ICU, he is now postoperative day #2. Patient is doing fairly well clinically however his renal functioning is worse today, and that being addressed accordingly, diuretics are presently on hold, patient is not on any nephrotoxic medications. Dopamine was started by cardiovascular surgery and renal perfusion dose. Clinically the patient is doing better, denies any pulmonary symptoms no cough no wheezing no shortness of breath, urine output is roughly about 15-25 ML per hour. Hemodynamically the patient is stable. He is on room air, O2 saturations 94% on room air. X-ray showed mostly bibasilar atelectasis. Patient was reevaluated today on 04/01/2021, remains in the ICU, he is presently on amiodarone drip, he is on room air, feeling quite well, his renal functioning is improving but not back to baseline. Clinically the patient is feeling great, asymptomatic, denies any cough wheezing or shortness of breath. Chest x-ray showed minimal bibasilar atelectasis. Creatinine today is up to 1.48, BUN is 50, WBC count is 10.7 hemoglobin is 8.2. Sodium is a bit low at 127, however will likely correct with cautious hydration. His blood sugar was elevated, so there is a component of mild pseudohyponatremia. Objective - Vital Signs Vital signs: Vital Signs Temp 98.2 F 04/01/21 08:00 Pulse 68 04/01/21 12:00 Resp 33 H 04/01/21 12:00 BP 140/85 04/01/21 12:00 Pulse Ox 98 04/01/21 12:00 Intake & Output 03/31/21 04/01/21 04/01/21 18:59 06:59 18:59 Intake Total 1672 1191 291 Output Total 840 685 420 Balance 832 506 -129 Weight 101.5 kg Intake: IV 682 891 291 Pressure Bag 42 66 36 Sodium Chloride 0.9% 1, 640 825 255 000 ml @ 75 mls/hr IV . [id number] [facility] Rx#:[id number] Intake, IV Titration 550 250 Amount Albumin Human 5% 250 ml 250 In Empty Bag 1 bag @ 250 mls/hr IVPB ONCE ONE Rx#: [id number] Albumin Human 5% 250 ml 250 In Empty Bag 1 bag @ 250 mls/hr IVPB ONCE STA Rx#: [id number] Dextrose 5% in Water 100 300 ml @ 618 mls/hr IV .Q10M PRN with Amiodarone 150 mg Rx#:[id number] Oral 440 50 Output: Chest Tube Drainage 0 Mediastinal/Left Pleural 0 Right Pleural 0 Urine 840 685 420 Other: Voiding Method Indwelling Catheter Indwelling Catheter Indwelling Catheter # Bowel Movements 1 ABP, PAP, CO, CI - Last Documented Arterial Blood Pressure 112/67 Pulmonary Artery Pressure 48/25 Cardiac Output 5.1 Cardiac Index 2.4 - Exam CONSTITUTIONAL: Revealed a 70-year-old white male in no distress, extremely pleasant. On room air. RESPIRATORY: Symmetrical chest expansion, diminished at the bases, no crackles or rhonchi or wheezes. CARDIOVASCULAR: Distant S1 and S2, no S3 gallop, 2/6 systolic murmur thought the precordium. GASTROINTESTINAL: Soft nontender no megaly no rebound no guarding. INTEGUMENTARY: No rashes. No areas of erythema. NEUROLOGIC: Alert and oriented 3 focal deficits. MUSKULOSKELETAL: Deformities and no limitation in range of motion. PSYCHIATRIC: Normal mood, affect and normal mental status examination. - Labs CBC & Chem 7: 04/01/21 05:15 04/01/21 05:15 Labs: Abnormal Lab Results - Last 24 Hours (Table) 03/31/21 03/31/21 04/01/21 Range/Units 16:46 21:13 05:15 WBC 10.7 H (3.8-10.6) k/uL RBC 2.80 L (4.30-5.90) m/uL Hgb 8.2 L (13.0-17.5) gm/dL Hct 24.9 L (39.0-53.0) % Plt Count 110 L (150-450) k/uL Neutrophils # 8.8 H (1.3-7.7) k/uL Sodium (137-145) mmol/L Carbon Dioxide (22-30) mmol/L BUN (9-20) mg/dL Creatinine (0.66-1.25) mg/dL Glucose (74-99) mg/dL POC Glucose (mg/dL) 260 H 394 H (75-99) mg/dL Calcium (8.4-10.2) mg/dL AST (17-59) U/L ALT (4-49) U/L Total Protein (6.3-8.2) g/dL Albumin (3.5-5.0) g/dL 04/01/21 04/01/21 04/01/21 Range/Units 05:15 06:46 11:40 WBC (3.8-10.6) k/uL RBC (4.30-5.90) m/uL Hgb (13.0-17.5) gm/dL Hct (39.0-53.0) % Plt Count (150-450) k/uL Neutrophils # (1.3-7.7) k/uL Sodium 127 L (137-145) mmol/L Carbon Dioxide 16 L (22-30) mmol/L BUN 50 H (9-20) mg/dL Creatinine 1.48 H (0.66-1.25) mg/dL Glucose 299 H (74-99) mg/dL POC Glucose (mg/dL) 310 H 298 H (75-99) mg/dL Calcium 7.8 L (8.4-10.2) mg/dL AST 88 H (17-59) U/L ALT 51 H (4-49) U/L Total Protein 4.8 L (6.3-8.2) g/dL Albumin 2.8 L (3.5-5.0) g/dL Assessment and Plan Assessment: Impression: Status post aortic valve replacement. Postoperative day #3 Acute kidney injury, possibly cardiorenal in nature or related to poor renal perfusion hence the patient was placed on dopamine, and we'll profile will be monitored closely Severe aortic regurgitation and mild aortic stenosis. Chronic dyspnea on exertion. History of moderate persistent bronchial asthma. History of type 1 diabetes, on insulin pump. History of hypothyroidism. Dyslipidemia. History of GERD. History of hypertension. New onset atrial fibrillation with RVR, postoperatively, expected. Patient is presently on amiodarone. Recommendation: Continue to hold diuretics. Continue amiodarone. Continue to monitor daily renal profile. And monitor sodium. Continue incentive spirometry, Continue bronchodilators. Continue aspirin statins and beta blockers. Ambulate. We will continue to follow. Time with Patient: Less than 30
[2021-04-01] MEDS ORDERED: INSULIN ASPART (NovoLOG) 100 UNIT/ML VIAL SQ SCH (12:30)
[2021-04-01 14:13] LABS: Glucose,Whole Blood 352 mg/dL (75-99)
--- NOTE | 2021-04-01 15:27 | P.PN ---
Subjective Progress Note Date: 04/01/21 HISTORY OF PRESENT ILLNESS [age]-year-old male one of Dr. Marcano patient with past medical history of type 1 diabetes on insulin pump who had history of asthma seen Dr. Harry chapa on regular basis, known to have history of hypertension hyperlipidemia and hypothyroidism who was hospitalized in February 07 to 02/10/2021 for worsening dyspnea and shortness of breath ended up going for further workup including heart catheter and transthoracic echocardiogram and process is Optigene echocardiogram findings were consistent with severe aortic stenosis with no major coronary artery involvement. Patient ended up seeing cardiothoracic surgeon Dr. Torres and plan to do an elective aortic valve placement which was done successfully, patient was on mechanical ventilation for sure. Of time and was weaned off shortly after he seen pulmonary ready. His blood sugar has been better controlled currently with insulin drip which will be continued this point until patient is able to take oral intake with switch him to insulin pump. Patient otherwise stable hemodynamically doing well he is maintaining his on airway on the hardly any vasopressor. 03/30: Patient is seen in the intensive care unit. He is sitting up in a recliner appears to be comfortable. He is currently on insulin drip which we will plan to transition over to Levemir tonight and in about one day or so, patient will be transitioned to his insulin pump. Blood sugars are running 121- 187. Right cordis and chest tubes remains in place. Patient does have chest discomfort, no complaints of shortness of breath. nurse monitoring sinus rhythm with occasional PVCs. He has not required vasopressors. Patient has been afebrile. WBC 16.2, hemoglobin 10.1, platelet count 149. Sodium 133, potassium 5.1, chloride 109, CO2 19, BUN 24 and creatinine 0.82. Magnesium 2.4. Repeat chest x-ray reveals probable basilar atelectasis. Patient is reaching 1000 on incentive spirometry. 03/31: Remains in intensive care unit, he is up sitting in a chair and recliner and appears to be quite comfortable. Patient overall looks much improved from yesterday. His chest tubes are out. He is working today with physical therapy. He ate breakfast this morning. He denies any nausea vomiting or diarrhea. Chest discomfort is controlled. He denies any fever or chills, denies cough. He has been afebrile, heart rate in the 80s and 90s, blood pressure 111/57, pulse ox 95% on room air. Repeat blood work reveals WBC 12.9, hemoglobin 8.8, platelet count 117. Sodium 130, potassium 5.1, chloride 105, CO2 19, BUN 40 creatinine 2.34. Blood sugars are running 128 274. Patient did receive a dose of Levemir last evening but unclear why insulin drip was not discontinued. We will increase Levemir to 20 units and switch patient over to scale insulin with plan to transition him to insulin pump tomorrow. 04/01: Patient is found sitting up in recliner and appears to be comfortable. Patient's blood sugars have been uncontrolled starting yesterday at supper of 260, bedtime 394, 7 AM 310. The following changes have been made. Capillary blood glucose every 2 hours, insulin scale every 2 hours, additional 10 units no w, increase NovoLog 6 units with meals, Levemir increased to 15 units twice daily. WBC is 10.7, hemoglobin 8.2, platelet count 110. BUN 50 and creatinine 1.48. Sodium 127. Patient is on amiodarone drip. Repeat chest x-ray reveals bilateral infiltrate and pleural effusion greater on the left. REVIEW OF SYSTEMS Constitutional: No fever, no chills, no night sweats. No weight change. No weakness, fatigue or lethargy. No daytime sleepiness. EENT: No headache. No blurred vision or double vision, no loss of vision. No loss of Hearing, no ringing in the ears, no dizziness. No nasal drainage or congestion. No epistaxis. No sore throat. Lungs: 3 chest tube at this point patient is awake able to maintain his on airway No shortness of breath, cough, no sputum production. No wheezing. Cardiovascular: Chest discomfort secondary to placement and left atrial howard endage so far no complication no arrhythmia, no lower extremity edema. No palpitations. Abdominal: No abdominal pain. No nausea, vomiting. No diarrhea. No constipation. No bloody or tarry stools.. No loss of appetite. Genitourinary: No dysuria, increased frequency, urgency. No urinary retention. Musculoskeletal: No myalgias. No muscle weakness, no gait dysfunction, no frequent falls. No back pain. No neck pain. Integumentary: No wounds, no lesions. No rash or pruritus. No unusual bruising. No change in hair or nails. Neurologic: No aphasia. No facial droop. No change in mentation. No head injury. No headache. No paralysis. No paresthesia. Psychiatric: No depression. No anxiety. No mood swings. Endocrine: He definitely abnormal blood sugars. No weight change. PHYSICAL EXAMINATION Gen: This is a 70-year-old laying in recliner in ICU and appears to be in no acute distress. Patient's and daughter bedside. HEENT: Head is atraumatic, normocephalic. Pupils equal, round. Sclerae is anicteric. NECK: Supple. No JVD. No lymphadenopathy. No thyromegaly. LUNGS: His 3 chest tube at this point, decreased breath sound in the left side no rhonchi crackles or wheezes. HEART: Regular rate and rhythm. 2/6 systolic murmur. ABDOMEN: Soft. Bowel sounds are present. No masses. No tenderness. EXTREMITIES: No pedal edema. No calf tenderness. NEUROLOGICAL: Patient is awake, alert and oriented x3. Cranial nerves 2 through 12 are grossly intact. ASSESSMENT AND PLAN 1. Post aortic valve placement and left at 2 appendage, postop day #2. Continue current plan per cardiothoracic team. 2 type 1 diabetes uncontrolled with hyperglycemia. Levemir increased to 15 units twice daily, NovoLog 6 units with meals, NovoLog scale, CBGs every 2 hours and scale. 3 hypertension. Continue hydralazine 50 g every 8 hour, Lopressor 25 mg 3 times daily 4 hyperlipidemia: Continue patient on atorvastatin 40 mg daily. 5 history of asthma: Patient seen pulmonary on regular basis and was on Pulmicort and Ventolin inhaler with continue nebulizer management as well this point. Patient is still on Singulair 10 mg a day which will be resumed. 6 hypothyroidism: Has been on levothyroxine 150 g daily resume medication. 7 severe GERD/GI prophylaxis: Patient will be continued on Pepcid 20 mg twice a day. 8 thrombocytopenia, POA. 9. Acute kidney injury. Continue to monitor renal function, avoid hypotension and nephrotoxic agents. 10. DVT prophylaxis: Continue patient on heparin 5000 units subcutaneous 3 times a day. Impression and plan of care have been directed as dictated by the signing physician. Maria R Topete nurse practitioner acting as scribe for signing physician. Objective - Vital Signs Vital signs: Vital Signs Temp 98.2 F 04/01/21 08:00 Pulse 71 04/01/21 08:50 Resp 20 04/01/21 08:30 BP 153/70 04/01/21 08:30 Pulse Ox 94 L 04/01/21 08:30 Intake & Output 03/31/21 04/01/21 04/01/21 18:59 06:59 18:59 Intake Total 1672 1191 162 Output Total 840 685 120 Balance 832 506 42 Weight 101.5 kg Intake: IV 682 891 162 Pressure Bag 42 66 12 Sodium Chloride 0.9% 1, 640 825 150 000 ml @ 75 mls/hr IV . [id number] EVE Rx#:[id number] Intake, IV Titration 550 250 Amount Albumin Human 5% 250 ml 250 In Empty Bag 1 bag @ 250 mls/hr IVPB ONCE ONE Rx#: [id number] Albumin Human 5% 250 ml 250 In Empty Bag 1 bag @ 250 mls/hr IVPB ONCE STA Rx#: [id number] Dextrose 5% in Water 100 300 ml @ 618 mls/hr IV .Q10M PRN with Amiodarone 150 mg Rx#:[id number] Oral 440 50 Output: Chest Tube Drainage 0 Mediastinal/Left Pleural 0 Right Pleural 0 Urine 840 685 120 Other: Voiding Method Indwelling Catheter Indwelling Catheter Indwelling Catheter # Bowel Movements 1 ABP, PAP, CO, CI - Last Documented Arterial Blood Pressure 155/82 Pulmonary Artery Pressure 48/25 Cardiac Output 5.1 Cardiac Index 2.4 - Labs CBC & Chem 7: 04/01/21 05:15 04/01/21 05:15 Labs: Abnormal Lab Results - Last 24 Hours (Table) 03/31/21 03/31/21 03/31/21 Range/Units 12:02 16:46 21:13 WBC (3.8-10.6) k/uL RBC (4.30-5.90) m/uL Hgb (13.0-17.5) gm/dL Hct (39.0-53.0) % Plt Count (150-450) k/uL Neutrophils # (1.3-7.7) k/uL Sodium (137-145) mmol/L Carbon Dioxide (22-30) mmol/L BUN (9-20) mg/dL Creatinine (0.66-1.25) mg/dL Glucose (74-99) mg/dL POC Glucose (mg/dL) 191 H 260 H 394 H (75-99) mg/dL Calcium (8.4-10.2) mg/dL AST (17-59) U/L ALT (4-49) U/L Total Protein (6.3-8.2) g/dL Albumin (3.5-5.0) g/dL 04/01/21 04/01/21 04/01/21 Range/Units 05:15 05:15 06:46 WBC 10.7 H (3.8-10.6) k/uL RBC 2.80 L (4.30-5.90) m/uL Hgb 8.2 L (13.0-17.5) gm/dL Hct 24.9 L (39.0-53.0) % Plt Count 110 L (150-450) k/uL Neutrophils # 8.8 H (1.3-7.7) k/uL Sodium 127 L (137-145) mmol/L Carbon Dioxide 16 L (22-30) mmol/L BUN 50 H (9-20) mg/dL Creatinine 1.48 H (0.66-1.25) mg/dL Glucose 299 H (74-99) mg/dL POC Glucose (mg/dL) 310 H (75-99) mg/dL Calcium 7.8 L (8.4-10.2) mg/dL AST 88 H (17-59) U/L ALT 51 H (4-49) U/L Total Protein 4.8 L (6.3-8.2) g/dL Albumin 2.8 L (3.5-5.0) g/dL
[2021-04-01] MEDS ORDERED: INSULIN ASPART (NovoLOG) 100 UNIT/ML VIAL SQ PRN (15:44)
[2021-04-01 15:55] LABS: Glucose,Whole Blood 278 mg/dL (75-99)
[2021-04-01 17:37] LABS: Glucose,Whole Blood 206 mg/dL (75-99)
[2021-04-01] MEDS: ACETAMINOPHEN TAB 325 MG TAB PO PRN (17:52)
[2021-04-01] MEDS: SENNOSIDES-DOCUSATE SODIUM 1 EACH TAB PO SCH (19:56)
[2021-04-01] MEDS: ATORVASTATIN 40 MG TAB PO SCH (19:57)
[2021-04-01] MEDS: MONTELUKAST 10 MG TAB PO SCH (20:01)
[2021-04-02] MEDS: hydrALAZINE HCL 25 MG TAB PO SCH ×3 (00:33→17:29)
[2021-04-02 00:34] LABS: Glucose,Whole Blood 76 mg/dL (75-99)
[2021-04-02] MEDS: MUPIROCIN 2% OINT 22 GM TUBE NASAL SCH ×2 (00:34→08:51)
[2021-04-02 04:26] LABS: HCT 25.3 % (39.0-53.0); HGB 8.6 gm/dL (13.0-17.5); MCH 30.1 pg (25.0-35.0); MCHC 34.1 g/dL (31.0-37.0); MCV 88.1 fL (80.0-100.0); Mean Platelet Volume 8.2; RBC 2.87 m/uL (4.30-5.90); RDW 14.8 % (11.5-15.5); WBC 14.2 k/uL (3.8-10.6)
[2021-04-02 04:28] LABS: Platelet Count 193 k/uL (150-450)
[2021-04-02 04:36] LABS: Calcium 8.6 mg/dL (8.4-10.2); Potassium 4.5 mmol/L (3.5-5.1); Total Bilirubin 0.5 mg/dL (0.2-1.3); Total Protein 5.2 g/dL (6.3-8.2)
[2021-04-02 06:11] LABS: Glucose,Whole Blood 101 mg/dL (75-99)
[2021-04-02] MEDS: LEVOTHYROXINE 75 MCG TAB PO SCH (06:11)
[2021-04-02] MEDS: PANTOPRAZOLE 40 MG TABLET PO SCH (06:11)
[2021-04-02] MEDS: BUDESONIDE 1 MG/2 ML NEBU INHALATION SCH ×2 (08:02→20:16)
[2021-04-02] MEDS: IPRATROPIUM-ALBUTEROL 3 ML NEB INHALATION SCH ×4 (08:02→20:16)
[2021-04-02] MEDS: HEPARIN SODIUM,PORCINE/PF 5,000 UNIT/0.5 ML SYRINGE SQ SCH ×2 (08:47→17:29)
[2021-04-02] MEDS: ASPIRIN 81 MG PO SCH (08:48)
[2021-04-02] MEDS: AMIODARONE 200 MG TAB PO SCH ×2 (08:48→20:49)
[2021-04-02] MEDS: CLOPIDOGREL 75 MG TAB PO SCH (08:48)
[2021-04-02] MEDS: METOPROLOL TARTRATE 25 MG TAB PO SCH (08:48)
[2021-04-02] MEDS ORDERED: METOPROLOL TARTRATE 25 MG TAB PO STA (09:54)
[2021-04-02] MEDS ORDERED: DEXTROSE 5% IN WATER 100 ML with AMIODARONE 150 MG IV ONE (09:56)
[2021-04-02] MEDS ORDERED: AMIODARONE IN DEXTROSE,ISO-OSM 150 MG/100 ML PLAST..BAG IV ONE (10:00)
--- NOTE | 2021-04-02 10:00 | XR ---
EXAMINATION TYPE: XR chest 1V portable DATE OF EXAM: 04/02/2021 COMPARISON: Chest x-ray 04/01/2021 HISTORY: Postcardiac surgery, abnormal chest x-ray TECHNIQUE: Single frontal view of the chest is obtained. FINDINGS: Patient is rotated. Patchy basilar density persists. Patient is post median sternotomy, ca rdiac valve replacement, left atrial appendage clip placement. There are overlying artifacts. No evid ent pneumothorax. Cardiac mediastinal silhouette is likely stable. IMPRESSION: Probable basilar atelectasis, difficult to exclude pneumonia, effusion
[2021-04-02] MEDS ORDERED: FUROSEMIDE 10 MG/ML 2 ML VIAL IV STA (10:09)
--- NOTE | 2021-04-02 10:30 | P.PN ---
Subjective Progress Note Date: 04/02/21 Principal diagnosis: Aortic valve disorder with predominant aortic valve regurgitation, evidence of bicuspid aortic valve with incomplete fusion of right and non-coronary cusps. P ast medical history significant for hypertension, hyperlipidemia, Type 1 insulin-dependent diabetes, asthma with recent exacerbation treated with steroids, hypothyroid, GERD and family history of premature coronary artery disease with father from myocardial infarction at 56 years old. Pre operative nasal screen positive for MSSA POD #4 aortic valve replacement using a 25 mm Inspiris pericardial bioprosthesis, exclusion of the left atrial appendage using a 35 mm AtriClip, intraoperative transesophageal echocardiogram and epi-aortic scanning Postoperative acute blood loss anemia and thrombocytopenia, expected given hemodilution, cardiopulmonary bypass pump Acute kidney injury, unexpected Postoperative atrial fibrillation, known common occurrence after open heart surgery The patient was seen in follow-up today 04/02/2021 at his bedside in the intensive care unit. Currently sitting up to the bedside chair, is awake, alert and oriented 3 and is in no acute apparent distress. Denies any complaints of shortness of breath or pain at this time. He reports his pain is well c ontrolled on her current pain medications he is receiving. Oxygen saturations are 97% on room air and he is achieving 1500 mL on his incentive spirometry with encouragement. Atrial epicardial pacemaker wires remain in place and are grounded. Bedside telemetry showing normal sinus rhythm with occasional PACs heart rate 83 BPM. He remains on amiodarone 400 mg by mouth twice a day and metoprolol tartrate 25 mg by mouth 3 times a day. Patient reports he has been up ambulating in the intensive care unit in [facility] with minimal assistance from nursing staff and physical therapy staff. Objective - Vital Signs Vital signs: Vital Signs Temp 98.3 F 04/02/21 08:00 Pulse 75 04/02/21 09:00 Resp 17 04/02/21 09:00 BP 116/96 04/02/21 09:00 Pulse Ox 96 04/02/21 09:00 Intake & Output 04/01/21 04/02/21 04/02/21 18:59 06:59 18:59 Intake Total 669 450 0 Output Total 845 300 75 Balance -176 150 -75 Weight 101 kg Intake: IV 319 Pressure Bag 54 Sodium Chloride 0.9% 1, 265 000 ml @ 75 mls/hr IV . [id number] [facility] Rx#:[id number] Oral 350 450 0 Output: Urine 845 300 75 Other: Voiding Method Indwelling Catheter Urinal # Bowel Movements 1 ABP, PAP, CO, CI - Last Documented Arterial Blood Pressure 104/75 Pulmonary Artery Pressure 48/25 Cardiac Output 5.1 Cardiac Index 2.4 - Exam CONSTITUTIONAL: Sitting up to the bedside chair in the intensive care unit, ap pears comfortable, cooperative, no apparent acute distress. HEENT: Neck is supple, no JVD, no lymphadenopathy. RESPIRATORY: Lungs sounds essentially clear throughout, diminished to his bilateral bases. Respirations are symmetrical and nonlabored. Currently on room air with oxygen saturations 97%. Able to achieve 1500 mL on his incentive spirometry. Strong cough. CARDIOVASCULAR: Regular rhythm and rate. S1 and S2 present, negative for S3, gallop or murmur. Sternum is stable. Palpable peripheral pulses bilaterally, +1 edema to his bilateral lower extremities. No calf pain or tenderness noted. Heart hugger in place with patient demonstrating appropriate use. Knee-high BUSHRA hose and sequential compression devices in place to his bilateral lower extremities. GASTROINTESTINAL: Abdomen soft, nontender, nondistended. Active bowel sounds present 4 quadrants. Tolerating diet. Passing flatus. No guarding or rigidity. GENITOURINARY: Continues to void. Output 300 mL in the last 8 hours INTEGUMENTARY: Skin is warm and dry with no evidence of clubbing or cyanosis. Midline sternal incision clean dry and well approximated, covered with dry intact dressing. MUSKULOSKELETAL: Able to move all extremities, strength equal bilaterally, generalized weakness. PSYCHIATRIC: Alert and oriented to person place and time, appropriate affect, intact judgment and insight. INVASIVE LINES AND TUBES: Atrial epicardial pacemaker wires present, grounded. - Allied health notes Allied health notes reviewed: nursing - Labs CBC & Chem 7: 04/02/21 03:51 04/02/21 03:51 Labs: Abnormal Lab Results - Last 24 Hours (Table) 04/01/21 04/01/21 04/01/21 Range/Units 11:40 14:11 15:54 WBC (3.8-10.6) k/uL RBC (4.30-5.90) m/uL Hgb (13.0-17.5) gm/dL Hct (39.0-53.0) % Sodium (137-145) mmol/L Chloride (98-107) mmol/L Carbon Dioxide (22-30) mmol/L BUN (9-20) mg/dL Glucose (74-99) mg/dL POC Glucose (mg/dL) 298 H 352 H 278 H (75-99) mg/dL Total Protein (6.3-8.2) g/dL Albumin (3.5-5.0) g/dL 04/01/21 04/02/21 04/02/21 Range/Units 17:35 03:51 03:51 WBC 14.2 H (3.8-10.6) k/uL RBC 2.87 L (4.30-5.90) m/uL Hgb 8.6 L (13.0-17.5) gm/dL Hct 25.3 L (39.0-53.0) % Sodium 134 L (137-145) mmol/L Chloride 108 H (98-107) mmol/L Carbon Dioxide 20 L (22-30) mmol/L BUN 42 H (9-20) mg/dL Glucose 49 L* (74-99) mg/dL POC Glucose (mg/dL) 206 H (75-99) mg/dL Total Protein 5.2 L (6.3-8.2) g/dL Albumin 3.0 L (3.5-5.0) g/dL 04/02/21 Range/Units 06:09 WBC (3.8-10.6) k/uL RBC (4.30-5.90) m/uL Hgb (13.0-17.5) gm/dL Hct (39.0-53.0) % Sodium (137-145) mmol/L Chloride (98-107) mmol/L Carbon Dioxide (22-30) mmol/L BUN (9-20) mg/dL Glucose (74-99) mg/dL POC Glucose (mg/dL) 101 H (75-99) mg/dL Total Protein (6.3-8.2) g/dL Albumin (3.5-5.0) g/dL - Imaging and Cardiology Chest x-ray: report reviewed, image reviewed Assessment and Plan Assessment: 1. Aortic valve disorder with predominant aortic valve regurgitation, evidence of bicuspid aortic valve with incomplete fusion of right and non-coronary cusps, status post aortic valve replacement 2. History of hypertension 3. History of hyperlipidemia, treated, cholesterol 161, LDL 73, triglycerides 56 4. Insulin-dependent diabetes, type I with insulin pump, preoperative hemoglobin A1c 7.6% 5. Asthma with recent exacerbation treated with steroids and antibiotic, moderate restrictive disease with preoperative FEV1 59% of predicted 6. Hypothyroid 7. GERD 8. Family history of premature coronary artery disease with father from myocardial infarction at 56 years old 9. Vaccinated with Moderna, last dose June 2020 10. Preoperative nasal screen positive for MSSA, treated 11. Postoperative acute blood loss anemia and thrombocytopenia, expected 12. Acute kidney injury 13. Postoperative atrial fibrillation, known common occurrence after open heart surgery, status post left atrial appendage ligation Plan: 1. Continue aspirin, statin, Plavix, beta caroline. Will increase metoprolol tartrate to 50 mg by mouth twice a day. Continue hydralazine for afterload reduction. 2. Continue amiodarone 400 mg by mouth twice a day. Once his pacemaker wires are removed we will consider starting on anticoagulation due to his atrial fibrillation. 3. Encourage incentive spirometry use 10 times every hour while awake. Bronchodilators, inhaled steroids per pulmonology 4. Increase activity, ambulate as tolerated. PT/OT/cardiac rehab following. 5. Will monitor daily labs and chest x-rays. Electrolyte replacement per protocol. Lasix 20 mg IV 1 now. 6. GI/DVT prophylaxis. 7. Pain control with current medication regimen. 8. Insulin management per primary care service. Patient needs tight blood sugar control to promote healing and prevent infection. The patient has transitioned back to his home insulin pump. 9. We will remove his epicardial pacemaker wires today, post pacemaker wire removal. He will need bed rest for 1 hour. 10. May bladder scan and straight cath for greater than 300 mL residual. 11. Strict accurate intake and output. Daily weights 12. Transfer orders were placed to the cardiac stepdown unit. 13. Discharge planning is in place. 14. More recommendations to follow based on patient's clinical course. Time with Patient: Greater than 30
--- NOTE | 2021-04-02 10:34 | PN ---
PROGRESS NOTE This gentleman underwent AVr for severe AI.. He also has type 2 diabetes, hypertension, hyperlipidemia. He is back on insulin pump. Blood sugars are good. He had a brief run of atrial fibrillation but is maintaining sinus rhythm. Clinically he seems to be doing well. Vitals are stable. No JVD. S1-S2 heard normally. Short systolic murmur is noted at the base of the heart. The patient underwent aortic valve replacement for aortic regurgitation. Lungs are clear. Abdomen is soft. Lower extremities reveal diminished pulses. Central nervous system: Grossly no focal deficits. Plan is to continue current medical regimen, incentive spirometry and pulmonary toilet. MMODL / IJN: [id number] / NASIM
--- NOTE | 2021-04-02 10:42 | CDI ---
Documentation Clarification Form Date: 04/02/2021 09:43:52 AM From: Darline Webster RN, CCDS Admit Date: 03/29/2021 05:39:00 AM Patient Name: Chaparro Glasgow Visit Number: [id number] Discharge Date: ATTENTION: The Clinical Documentation Specialists (CDI) and [facility] Coding Staff appreciate your assistance in clarifying documentation. Please respond to the clarification below the line at the bottom and electronically sign. The CDI & [facility] Coding staff will review the response and follow-up if needed. Please note: Queries are made part of the Legal Health Record. If you have any questions, please contact the author of this message via ITS. Dr. Genie Davey Atrial Fibrillation with rapid response is documented the progress note on 03/31/21 Additional clarification regarding the type of atrial fibrillation is requested. 04/01 Cardiology progress note: yesterday he went into atrial fibrillation with a moderately rapid ventricular rate that lasted for a few hours, but he has converted to sinus rhythm. History/Risk Factors: Asthma Diabetes Mellitus, Hypertension, Aortic valve regurgitation Clinical Indicators: 70-year-old male present for elective surgery on 03/29/21 aortic valve replacement. He went into atrial fibrillation on 03/31/2105/31 Vital signs: 134/65 147 38, 148/95 144 29 (afib with rvr noted 12:00 - 17:15) 17:30 Vital signs: 92/45 82 26 EKG/telemetry: AFIB with rapid response (per attn. progress notes 03/31) Treatment: ICU/Telemetry monitoring Amiodarone 450 MG IV per orders Amiodarone 400 PO BID (04/01) Please clarify the type of atrial fibrillation, if known: [ ] Chronic [ ] Permanent [ ] Paroxysmal [ ] Persistent [ ] Other, please specify [ ] Unable to determine (Template Last Revised: September 2020) Paroxysmal MTDD
--- NOTE | 2021-04-02 11:02 | P.PN ---
Subjective Progress Note Date: 04/02/21 Principal diagnosis: Bicuspid aortic valve, status post aortic valve replacement This is a 70-year-old white male with history of diabetes, patient has insulin pump place, patient is also known to have history of asthma, hypertension, recent 2-D echo showed aortic valve regurgitation, and the patient was complaining of dyspnea on exertion. Initially his shortness of breath was blamed on his asthma, however further workup was done, patient had MIKAEL showing severe aortic valve regurgitation, mild aortic stenosis, ejection fraction of 45%, and he was also noted to have dilatation of the left ventricle and moderate hypertrophy. Patient was seen by cardiothoracic surgery on consultation, and today he underwent aortic valve replacement, patient was sent to the ICU on mechanical ventilation, and at the time I evaluated the patient, patient was already on weaning mode of mechanical ventilation using pressure support of 8 and PEEP of 8. Patient was actually on CPAP, and he was noted to be doing well. ABG was excellent, and shortly after my evaluation, I recommended extubating the patient. And this was done uneventfully. Chest x-ray showed no evidence of active disease. Labs were all reviewed, ABG was also reviewed. Patient was reevaluated today on 03/30/21, remains in the ICU, patient was extubated last night at 17:40 p.m., tolerated the extubation well. Patient is sitting at a bedside chair, in no distress. Chest x-ray today is reassuring with minimal expected postoperative atelectasis. Patient is on few liters nasal cannula, relatively asymptomatic, doing well with incentive spirometry. Achieving over 1000 mL. Patient is hemodynamically stable, not requiring any inotropes or any pressors. Continues to have right internal jugular Cordis, continues to have mediastinal/right pleural chest tubes remained, and he has a left radial arterial line. WBC count is 16.2 hemoglobin is 10.1 electrolytes are normal. Renal profile is normal. Reevaluated today on 03/31/21, patient remains in the ICU, he is now postoperative day #2. Patient is doing fairly well clinically however his renal functioning is worse today, and that being addressed accordingly, diuretics are presently on hold, patient is not on any nephrotoxic medications. Dopamine was started by cardiovascular surgery and renal perfusion dose. Clinically the patient is doing better, denies any pulmonary symptoms no cough no wheezing no shortness of breath, urine output is roughly about 15-25 ML per hour. Hemodynamically the patient is stable. He is on room air, O2 saturations 94% on room air. X-ray showed mostly bibasilar atelectasis. Patient was reevaluated today on 04/01/2021, remains in the ICU, he is presently on amiodarone drip, he is on room air, feeling quite well, his renal functioning is improving but not back to baseline. Clinically the patient is feeling great, asymptomatic, denies any cough wheezing or shortness of breath. Chest x-ray showed minimal bibasilar atelectasis. Creatinine today is up to 1.48, BUN is 50, WBC count is 10.7 hemoglobin is 8.2. Sodium is a bit low at 127, however will likely correct with cautious hydration. His blood sugar was elevated, so there is a component of mild pseudohyponatremia. The patient is seen today 04/02/2021 in follow-up in the intensive care unit. He is currently sitting up in a chair at the bedside. Awake and alert in no acute distress. Maintaining good O2 saturations in the 90s on room air. Wor jose well with the incentive spirometer. No IV fluids. Creatinine is improving, currently 1.0. X-ray continues to show some basilar atelectasis. White count 14.2. Hemoglobin 8.6. Platelets 193. Sodium 134. Potassium 4.5. Creatinine 1.0. Glucose 101. He is continued on DuoNeb inhalations, Pulmicort, Singulair. Heparin for DVT prophylaxis. He has had issues with atrial fibrillation when he is up ambulating with assistance. Currently in sinus rhythm. He's been transitioned to oral amiodarone and metoprolol. Objective - Vital Signs Vital signs: Vital Signs Temp 98.3 F 04/02/21 08:00 Pulse 75 04/02/21 09:00 Resp 17 04/02/21 09:00 BP 116/96 04/02/21 09:00 Pulse Ox 96 04/02/21 09:00 Intake & Output 04/01/21 04/02/21 04/02/21 18:59 06:59 18:59 Intake Total 669 450 100 Output Total 845 300 400 Balance -176 150 -300 Weight 101 kg Intake: IV 319 Pressure Bag 54 Sodium Chloride 0.9% 1, 265 000 ml @ 75 mls/hr IV . [id number] [facility] Rx#:[id number] Intake, IV Titration 100 Amount Dextrose 5% in Water 100 100 ml @ 618 mls/hr IV .Q10M ONE with Amiodarone 150 mg Rx#:[id number] Oral 350 450 0 Output: Urine 845 300 400 Other: Voiding Method Indwelling Catheter Urinal # Bowel Movements 1 ABP, PAP, CO, CI - Last Documented Arterial Blood Pressure 104/75 Pulmonary Artery Pressure 48/25 Cardiac Output 5.1 Cardiac Index 2.4 - Exam GENERAL EXAM: Alert, very pleasant 70-year-old gentleman, on room air, comfortab le in no apparent distress. HEAD: Normocephalic. EYES: Normal reaction of pupils, equal size. NOSE: Clear with pink turbinates. THROAT: No erythema or exudates. NECK: No masses, no JVD. CHEST: Sternal dressing dry and intact. Heart Hugger in place. LUNGS: Equal air entry with crackles in the posterior bases. CVS: S1 and S2 normal with no audible murmur, regular rhythm. ABDOMEN: No hepatosplenomegaly, normal bowel sounds, no guarding or rigidity. SPINE: No scoliosis or deformity SKIN: No rashes CENTRAL NERVOUS SYSTEM: No focal deficits, tone is normal in all 4 extremities. EXTREMITIES: There is no peripheral edema. No clubbing, no cyanosis. Peripheral pulses are intact. - Labs CBC & Chem 7: 04/02/21 03:51 04/02/21 03:51 Labs: Abnormal Lab Results - Last 24 Hours (Table) 04/01/21 04/01/21 04/01/21 Range/Units 11:40 14:11 15:54 WBC (3.8-10.6) k/uL RBC (4.30-5.90) m/uL Hgb (13.0-17.5) gm/dL Hct (39.0-53.0) % Sodium (137-145) mmol/L Chloride (98-107) mmol/L Carbon Dioxide (22-30) mmol/L BUN (9-20) mg/dL Glucose (74-99) mg/dL POC Glucose (mg/dL) 298 H 352 H 278 H (75-99) mg/dL Total Protein (6.3-8.2) g/dL Albumin (3.5-5.0) g/dL 04/01/21 04/02/21 04/02/21 Range/Units 17:35 03:51 03:51 WBC 14.2 H (3.8-10.6) k/uL RBC 2.87 L (4.30-5.90) m/uL Hgb 8.6 L (13.0-17.5) gm/dL Hct 25.3 L (39.0-53.0) % Sodium 134 L (137-145) mmol/L Chloride 108 H (98-107) mmol/L Carbon Dioxide 20 L (22-30) mmol/L BUN 42 H (9-20) mg/dL Glucose 49 L* (74-99) mg/dL POC Glucose (mg/dL) 206 H (75-99) mg/dL Total Protein 5.2 L (6.3-8.2) g/dL Albumin 3.0 L (3.5-5.0) g/dL 04/02/21 Range/Units 06:09 WBC (3.8-10.6) k/uL RBC (4.30-5.90) m/uL Hgb (13.0-17.5) gm/dL Hct (39.0-53.0) % Sodium (137-145) mmol/L Chloride (98-107) mmol/L Carbon Dioxide (22-30) mmol/L BUN (9-20) mg/dL Glucose (74-99) mg/dL POC Glucose (mg/dL) 101 H (75-99) mg/dL Total Protein (6.3-8.2) g/dL Albumin (3.5-5.0) g/dL Assessment and Plan Assessment: 1 Bicuspid aortic valve, status post aortic valve replacement. Postoperative day #4 2 Paroxysmal atrial fibrillation, currently in sinus rhythm 3 Acute kidney injury, improving and creatinine 1.20 4 History of moderate persistent chronic bronchial asthma 5 Diabetes mellitus, on insulin pump 6 Hypothyroidism 7 Hyperlipidemia 8 History of gastroesophageal reflux disease 9 History of hypertension Plan: The patient was seen and evaluated by Dr. Castle Currently stable from the pulmonary and critical care standpoint Chest x-ray and labs reviewed Continue to work well with the incentive spirometer Continue bronchodilators Increase his activity as tolerated Antiarrhythmics being adjusted Heparin for DVT prophylaxis We'll continue to follow I, the cosigning physician, performed a history & physical examination of the patient. Lungs sounds faint crackles in the posterior bases. Maintaining good O2 saturations in the 90s on room air. I discussed the assessment and plan of care with my nurse practitioner, Elizabeth Dove. I attest to the above note as dictated by her.
--- NOTE | 2021-04-02 11:49 | PN ---
PROGRESS NOTE Patient is seen for followup for acute kidney injury associated with hypotension, use of Toradol and hemodynamic instability. Patient is status post aortic valve replacement, postoperative day number 4 today. Renal function has improved significantly, with creatinine down to 1.2. Patient was also hyponatremic, which was mostly hypervolemic, and improved with discontinuation of saline and increased oral intake. This morning patient went back into atrial fibrillation. On examination today, blood pressure is 116/96, heart rate 75 per minute. Patient is afebrile. EXAMINATION OF THE HEART: S1 and S2. EXAMINATION OF LUNGS: Decreased breath sounds at the bases. Abdomen is soft, non-tender. Examination of lower extremities shows edema 1+ bilaterally, upper and lower extremities. Labs show sodium 134, potassium 4.5, chloride 108. CO2 is 20, BUN 42, creatinine 1.2, hemoglobin 8.6 g/dL. ASSESSMENT: 1. Acute kidney injury associated with NSAIDs, hypotension, hypoperfusion, currently improved. Good urine output. 2. Hypervolemic hyponatremia, improved with discontinuation of saline. Recommend Lasix this morning, and we might need to repeat another dose later on today. 3. Status post aortic valve replacement, postoperative day number 4. Doing well. 4. Atrial fibrillation with rapid ventricular response, currently back on amiodarone drip. Patient is hypervolemic. Recommend diuresis. PLAN: Lasix this morning. May repeat another dose of 20 mg later on this evening and repeat labs in a.m. Encourage increased oral intake, particularly protein. MMODL / IJN: [id number] /
[2021-04-02 12:23] LABS: Glucose,Whole Blood 213 mg/dL (75-99)
--- NOTE | 2021-04-02 15:31 | P.PN ---
Subjective Progress Note Date: 04/02/21 HISTORY OF PRESENT ILLNESS [age]-year-old male one of Dr. Marcano patient with past medical history of type 1 diabetes on insulin pump who had history of asthma seen Dr. Harry chapa on regular basis, known to have history of hypertension hyperlipidemia and hypothyroidism who was hospitalized in February 07 to 02/10/2021 for worsening dyspnea and shortness of breath ended up going for further workup including heart catheter and transthoracic echocardiogram and process is Optigene echocardiogram findings were consistent with severe aortic stenosis with no major coronary artery involvement. Patient ended up seeing cardiothoracic surgeon Dr. Torres and plan to do an elective aortic valve placement which was done successfully, patient was on mechanical ventilation for sure. Of time and was weaned off shortly after he seen pulmonary ready. His blood sugar has been better controlled currently with insulin drip which will be continued this point until patient is able to take oral intake with switch him to insulin pump. Patient otherwise stable hemodynamically doing well he is maintaining his on airway on the hardly any vasopressor. 03/30: Patient is seen in the intensive care unit. He is sitting up in a recliner appears to be comfortable. He is currently on insulin drip which we will plan to transition over to Levemir tonight and in about one day or so, patient will be transitioned to his insulin pump. Blood sugars are running 121- 187. Right cordis and chest tubes remains in place. Patient does have chest discomfort, no complaints of shortness of breath. cardiac monitor sinus rhythm with occasional PVCs. He has not required vasopressors. Patient has been afebrile. WBC 16.2, hemoglobin 10.1, platelet count 149. Sodium 133, potassium 5.1, chloride 109, CO2 19, BUN 24 and creatinine 0.82. Magnesium 2.4. Repeat chest x-ray reveals probable basilar atelectasis. Patient is reaching 1000 on incentive spirometry. 03/31: Remains in intensive care unit, he is up sitting in a chair and recliner and appears to be quite comfortable. Patient overall looks much improved from yesterday. His chest tubes are out. He is working today with physical therapy. He ate breakfast this morning. He denies any nausea vomiting or diarrhea. Chest discomfort is controlled. He denies any fever or chills, denies cough. He has been afebrile, heart rate in the 80s and 90s, blood pressure 111/57, pulse ox 95% on room air. Repeat blood work reveals WBC 12.9, hemoglobin 8.8, platelet count 117. Sodium 130, potassium 5.1, chloride 105, CO2 19, BUN 40 creatinine 2.34. Blood sugars are running 128 274. Patient did receive a dose of Levemir last evening but unclear why insulin drip was not discontinued. We will increase Levemir to 20 units and switch patient over to scale insulin with plan to transition him to insulin pump tomorrow. 04/01: Patient is found sitting up in recliner and appears to be comfortable. Patient's blood sugars have been uncontrolled starting yesterday at supper of 260, bedtime 394, 7 AM 310. The following changes have been made. Capillary blood glucose every 2 hours, insulin scale every 2 hours, additional 10 units no w, increase NovoLog 6 units with meals, Levemir increased to 15 units twice daily. WBC is 10.7, hemoglobin 8.2, platelet count 110. BUN 50 and creatinine 1.48. Sodium 127. Patient is on amiodarone drip. Repeat chest x-ray reveals bilateral infiltrate and pleural effusion greater on the left. 04/02: Patient remains in intensive care unit. He has been transitioned over to his insulin pump and blood sugars are improved but actually hypo-glycemic with blood sugar of 49 this morning. He states his pain is controlled. Difficulty in breathing is stable. Patient has been transitioned to oral amiodarone and metoprolol for atrial fibrillation. He is afebrile, heart rate 60, blood pressure 116/51, pulse ox 90% on room air. Repeat blood work reveals WBC 14.2, hemoglobin 8.6, platelet count 193. Sodium 134, potassium 4.5, chloride 108, CO2 20, BUN 40. Creatinine 1.2. Liver function tests normal. Discharge plan is to return home with [facility]. REVIEW OF SYSTEMS Constitutional: No fever, no chills, no night sweats. No weight change. No weakness, fatigue or lethargy. No daytime sleepiness. EENT: No headache. No blurred vision or double vision, no loss of vision. No loss of Hearing, no ringing in the ears, no dizziness. No nasal drainage or congestion. No epistaxis. No sore throat. Lungs: 3 chest tube at this point patient is awake able to maintain his on airway No shortness of breath, cough, no sputum production. No wheezing. Cardiovascular: Chest discomfort secondary to placement and left atrial appendage so far no complication no arrhythmia, no lower extremity edema. No palpitations. Abdominal: No abdominal pain. No nausea, vomiting. No diarrhea. No constipation. No bloody or tarry stools.. No loss of appetite. Genitourinary: No dysuria, increased frequency, urgency. No urinary retention. Musculoskeletal: No myalgias. No muscle weakness, no gait dysfunction, no frequent falls. No back pain. No neck pain. Integumentary: No wounds, no lesions. No rash or pruritus. No unusual bruising. No change in hair or nails. Neurologic: No aphasia. No facial droop. No change in mentation. No head injury. No headache. No paralysis. No paresthesia. Psychiatric: No depression. No anxiety. No mood swings. Endocrine: Noted abnormal blood sugars. No weight change. PHYSICAL EXAMINATION Gen: This is a 70-year-old lresting in bedin ICU and appears to be in no acute distress. HEENT: Head is atraumatic, normocephalic. Pupils equal, round. Sclerae is anicteric. NECK: Supple. No JVD. No lymphadenopathy. No thyromegaly. LUNGS: His 3 chest tube at this point, decreased breath sound in the left side no rhonchi crackles or wheezes. HEART: Regular rate and rhythm. 2/6 systolic murmur. ABDOMEN: Soft. Bowel sounds are present. No masses. No tenderness. EXTREMITIES: No pedal edema. No calf tenderness. NEUROLOGICAL: Patient is awake, alert and oriented x3. Cranial nerves 2 through 12 are grossly intact. ASSESSMENT AND PLAN 1. Post aortic valve placement and left at 2 appendage, postop day #4. Continue current plan per cardiothoracic team. 2 type 1 diabetes uncontrolled with hyperglycemia. Patient has been resumed on insulin pump 3 hypertension. Continue hydralazine 50 g every 8 hour, Lopressor 50 mg 2times daily 4 hyperlipidemia: Continue patient on atorvastatin 40 mg daily. 5 history of asthma: Patient seen pulmonary on regular basis and was on Pulmicort and Ventolin inhaler with continue nebulizer management as well this point. Patient is still on Singulair 10 mg a day which will be resumed. 6 hypothyroidism: Has been on levothyroxine 150 g daily resume medication. 7 severe GERD/GI prophylaxis: Continue Protonix 8 thrombocytopenia, POA. 9. Acute kidney injury, resolved . Continue to monitor renal function, avoid hypotension and nephrotoxic agents. 10. Paroxysmal atrial fibrillation. Patient is on amiodarone 400 mg twice daily, Lopressor 50 mg twice daily. DVT prophylaxis: Continue patient on heparin 5000 units subcutaneous 3 times a day. DISCHARGE PLAN Home with [facility] Impression and plan of care have been directed as dictated by the signing physician. Maria R Topete nurse practitioner acting as scribe for signing physician. Objective - Vital Signs Vital signs: Vital Signs Temp 98.3 F 04/02/21 08:00 Pulse 62 04/02/21 12:04 Resp 23 04/02/21 11:00 BP 152/90 04/02/21 11:00 Pulse Ox 95 04/02/21 11:00 Intake & Output 04/01/21 04/02/21 04/02/21 18:59 06:59 18:59 Intake Total 669 450 100 Output Total 845 300 400 Balance -176 150 -300 Weight 101 kg Intake: IV 319 Pressure Bag 54 Sodium Chloride 0.9% 1, 265 000 ml @ 75 mls/hr IV . [id number] [facility] Rx#:[id number] Intake, IV Titration 100 Amount Dextrose 5% in Water 100 100 ml @ 618 mls/hr IV .Q10M ONE with Amiodarone 150 mg Rx#:[id number] Oral 350 450 0 Output: Urine 845 300 400 Other: Voiding Method Indwelling Catheter Urinal # Bowel Movements 1 ABP, PAP, CO, CI - Last Documented Arterial Blood Pressure 104/75 Pulmonary Artery Pressure 48/25 Cardiac Output 5.1 Cardiac Index 2.4 - Labs CBC & Chem 7: 04/02/21 03:51 04/02/21 03:51 Labs: Abnormal Lab Results - Last 24 Hours (Table) 04/01/21 04/01/21 04/01/21 Range/Units 14:11 15:54 17:35 WBC (3.8-10.6) k/uL RBC (4.30-5.90) m/uL Hgb (13.0-17.5) gm/dL Hct (39.0-53.0) % Sodium (137-145) mmol/L Chloride (98-107) mmol/L Carbon Dioxide (22-30) mmol/L BUN (9-20) mg/dL Glucose (74-99) mg/dL POC Glucose (mg/dL) 352 H 278 H 206 H (75-99) mg/dL Total Protein (6.3-8.2) g/dL Albumin (3.5-5.0) g/dL 04/02/21 04/02/21 04/02/21 Range/Units 03:51 03:51 06:09 WBC 14.2 H (3.8-10.6) k/uL RBC 2.87 L (4.30-5.90) m/uL Hgb 8.6 L (13.0-17.5) gm/dL Hct 25.3 L (39.0-53.0) % Sodium 134 L (137-145) mmol/L Chloride 108 H (98-107) mmol/L Carbon Dioxide 20 L (22-30) mmol/L BUN 42 H (9-20) mg/dL Glucose 49 L* (74-99) mg/dL POC Glucose (mg/dL) 101 H (75-99) mg/dL Total Protein 5.2 L (6.3-8.2) g/dL Albumin 3.0 L (3.5-5.0) g/dL
[2021-04-02 16:35] LABS: Glucose,Whole Blood 190 mg/dL (75-99)
[2021-04-02 17:29] LABS: % Iron Saturation 4.21 (15.00-50.00)
[2021-04-02] MEDS: INSULIN PUMP TARGET GLUCOSE 1 EACH MISC MISCELLANE PRN (20:00)
[2021-04-02] MEDS ORDERED: FUROSEMIDE 10 MG/ML 2 ML VIAL IV ONE (20:02)
[2021-04-02 20:16] LABS: Glucose,Whole Blood 251 mg/dL (75-99)
[2021-04-02] MEDS: ATORVASTATIN 40 MG TAB PO SCH (20:49)
[2021-04-02] MEDS: MONTELUKAST 10 MG TAB PO SCH (20:50)
[2021-04-02] MEDS: SENNOSIDES-DOCUSATE SODIUM 1 EACH TAB PO SCH (20:53)
[2021-04-02] MEDS ORDERED: METOPROLOL TARTRATE 25 MG TAB PO SCH (21:00)
[2021-04-03] MEDS: hydrALAZINE HCL 25 MG TAB PO SCH ×4 (01:13→23:31)
[2021-04-03] MEDS: HEPARIN SODIUM,PORCINE/PF 5,000 UNIT/0.5 ML SYRINGE SQ SCH ×4 (01:13→23:31)
[2021-04-03] MEDS: MUPIROCIN 2% OINT 22 GM TUBE NASAL SCH (01:17)
[2021-04-03] MEDS: PANTOPRAZOLE 40 MG TABLET PO SCH (06:28)
[2021-04-03] MEDS: LEVOTHYROXINE 75 MCG TAB PO SCH (06:28)
[2021-04-03 06:46] LABS: Glucose,Whole Blood 110 mg/dL (75-99)
[2021-04-03] MEDS: BUDESONIDE 1 MG/2 ML NEBU INHALATION SCH ×2 (08:07→20:36)
[2021-04-03] MEDS: IPRATROPIUM-ALBUTEROL 3 ML NEB INHALATION SCH ×4 (08:07→20:36)
--- NOTE | 2021-04-03 08:19 | XR ---
EXAMINATION TYPE: XR chest 2V DATE OF EXAM: 04/03/2021 COMPARISON: 04/02/2021 HISTORY: 70-year-old male postoperative aortic valve replacement TECHNIQUE: AP and lateral views FINDINGS: Median sternotomy wires with prosthetic aortic valve. Heart upper limits of normal in size. Dense ret rocardiac opacity and small left pleural effusion persist. No appreciable pneumothorax. IMPRESSION: Similar small left pleural effusion with prominent left basilar and retrocardiac atelectasis and/or c onsolidation.
[2021-04-03] MEDS ORDERED: FUROSEMIDE 10 MG/ML 2 ML VIAL IV STA (08:35)
[2021-04-03 08:45] LABS: Basophils % (A) 0 %; Eosinophils # (A) 0.3 k/uL (0-0.7); Eosinophils % (A) 3 %; HGB 8.5 gm/dL (13.0-17.5); Lymphocytes # (A) 1.1 k/uL (1.0-4.8); Lymphocytes % (A) 10 %; MCH 29.5 pg (25.0-35.0); MCHC 32.7 g/dL (31.0-37.0); MCV 90.1 fL (80.0-100.0); Mean Platelet Volume 8.4; Monocytes # (A) 1.1 k/uL (0-1.0); Monocytes % (A) 9 %; Neutrophils # (A) 8.4 k/uL (1.3-7.7); Neutrophils % (A) 75 %; Platelet Count 243 k/uL (150-450); RBC 2.88 m/uL (4.30-5.90); RDW 14.4 % (11.5-15.5); WBC 11.2 k/uL (3.8-10.6)
[2021-04-03 08:58] LABS: Calcium 8.2 mg/dL (8.4-10.2); Potassium 4.8 mmol/L (3.5-5.1)
--- NOTE | 2021-04-03 09:22 | P.PN ---
Subjective Progress Note Date: 04/03/21 Principal diagnosis: This is a 70-year-old male seen in consultation for Acute kidney injury hyponatremia He is postop aortic valve replacement dated 5 today. He is feeling much better sitting in a chair. Mildly short of breath but improved. Appetite is good No fever chills, nausea vomiting diarrhea. Vital signs are stable Objective - Vital Signs Vital signs: Vital Signs Temp 98.1 F 04/03/21 04:00 Pulse 70 04/03/21 04:00 Resp 18 04/03/21 04:00 BP 157/69 04/03/21 04:00 Pulse Ox 96 04/03/21 04:00 Intake & Output 04/02/21 04/03/21 04/03/21 18:59 06:59 18:59 Intake Total 100 260 Output Total 1125 1500 450 Balance -1025 -1500 -190 Weight 99 kg Intake: Intake, IV Titration 100 Amount Dextrose 5% in Water 100 100 ml @ 618 mls/hr IV .Q10M ONE with Amiodarone 150 mg Rx#:[id number] Oral 0 260 Output: Urine 1125 1500 450 Other: Voiding Method Urinal Urinal # Voids 1 # Bowel Movements 1 ABP, PAP, CO, CI - Last Documented Arterial Blood Pressure 104/75 Pulmonary Artery Pressure 48/25 Cardiac Output 5.1 Cardiac Index 2.4 On examination awake alert oriented comfortable JVP is noted about 8 cm above the sternal angle Lungs are clear to auscultation and occasional coarse crackle good air entry bilaterally Heart sounds unremarkable for any murmur rub gallop could not hear any clicks Abdomen soft nontender slightly protuberant Extremity exam reveals mild edema Neurologically awake alert oriented - Labs CBC & Chem 7: 04/03/21 07:49 04/03/21 07:49 Labs: Abnormal Lab Results - Last 24 Hours (Table) 04/02/21 04/02/21 04/02/21 Range/Units 10:39 12:22 16:34 WBC (3.8-10.6) k/uL RBC (4.30-5.90) m/uL Hgb (13.0-17.5) gm/dL Hct (39.0-53.0) % Neutrophils # (1.3-7.7) k/uL Monocytes # (0-1.0) k/uL Sodium (137-145) mmol/L Carbon Dioxide (22-30) mmol/L BUN (9-20) mg/dL Glucose (74-99) mg/dL POC Glucose (mg/dL) 213 H 190 H (75-99) mg/dL Calcium (8.4-10.2) mg/dL Iron 9 L (65-175) ug/dL TIBC 218 L (228-460) ug/dL % Saturation 4.21 L (15.00-50.00) Transferrin 156.0 L (204.0-354.0) mg/dL 04/02/21 04/03/21 04/03/21 Range/Units 19:51 06:34 07:49 WBC 11.2 H (3.8-10.6) k/uL RBC 2.88 L (4.30-5.90) m/uL Hgb 8.5 L (13.0-17.5) gm/dL Hct 26.0 L (39.0-53.0) % Neutrophils # 8.4 H (1.3-7.7) k/uL Monocytes # 1.1 H (0-1.0) k/uL Sodium (137-145) mmol/L Carbon Dioxide (22-30) mmol/L BUN (9-20) mg/dL Glucose (74-99) mg/dL POC Glucose (mg/dL) 251 H 110 H (75-99) mg/dL Calcium (8.4-10.2) mg/dL Iron (65-175) ug/dL TIBC (228-460) ug/dL % Saturation (15.00-50.00) Transferrin (204.0-354.0) mg/dL 04/03/21 Range/Units 07:49 WBC (3.8-10.6) k/uL RBC (4.30-5.90) m/uL Hgb (13.0-17.5) gm/dL Hct (39.0-53.0) % Neutrophils # (1.3-7.7) k/uL Monocytes # (0-1.0) k/uL Sodium 134 L (137-145) mmol/L Carbon Dioxide 21 L (22-30) mmol/L BUN 34 H (9-20) mg/dL Glucose 182 H (74-99) mg/dL POC Glucose (mg/dL) (75-99) mg/dL Calcium 8.2 L (8.4-10.2) mg/dL Iron (65-175) ug/dL TIBC (228-460) ug/dL % Saturation (15.00-50.00) Transferrin (204.0-354.0) mg/dL Assessment and Plan Assessment: Impression 1. Acute kidney injury secondary to, from combination of Toradol and volume excess. Creatinine has improved from 2.34-1.14 this morning 2. Hyponatremia from volume excess improved with diuretics sodium is 134 3. Mild degree of non-gap acidosis from acute kidney injury improving bicarb is up to 21 4. He sees is this morning shows small left pleural effusion with prominent left is 11 to cardiac atelectasis. 5. Anemia hemoglobin is down to 8.5. 6. Iron deficiency saturation is 4.2% on 04/02/2021 Recommendations 1. Try gentle diuresis with Lasix 20 mg by mouth daily on a when necessary basis 2. Watch labs blood pressure urine output 3. Start ferrous sulfate 325 twice a day
[2021-04-03] MEDS: ASPIRIN 81 MG PO SCH (10:16)
[2021-04-03] MEDS: CLOPIDOGREL 75 MG TAB PO SCH (10:16)
[2021-04-03] MEDS: METOPROLOL TARTRATE 25 MG TAB PO SCH ×2 (10:17→20:46)
--- NOTE | 2021-04-03 10:31 | P.PN ---
Subjective Progress Note Date: 04/03/21 Principal diagnosis: Aortic valve disorder with predominant aortic valve regurgitation, evidence of bicuspid aortic valve with incomplete fusion of right and non-coronary cusps. P ast medical history significant for hypertension, hyperlipidemia, Type 1 insulin-dependent diabetes, asthma with recent exacerbation treated with steroids, hypothyroid, GERD and family history of premature coronary artery disease with father from myocardial infarction at 56 years old. Pre operative nasal screen positive for MSSA POD #5 aortic valve replacement using a 25 mm Inspiris pericardial bioprosthesis, exclusion of the left atrial appendage using a 35 mm AtriClip, intraoperative transesophageal echocardiogram and epi-aortic scanning Postoperative acute blood loss anemia and thrombocytopenia, expected given hemodilution, cardiopulmonary bypass pump Acute kidney injury, unexpected Postoperative atrial fibrillation, known common occurrence after open heart surgery The patient was seen in follow-up today 04/03/2021 at his bedside on the cardiac stepdown unit. Currently sitting up to the bedside chair, is awake, alert and oriented 3 and is in no acute apparent distress. Denies any complaints of shortness of breath or pain at this time. He does report that he gets somewhat short of breath with ambulating in the hallway. He also reports that he only went for 1 walk in the hallway yesterday with physical therapy. Oxygen saturations are 96% on room air and he is achieving 1000 mL on his incentive spirometry with encouragement. Remote telemetry showing normal sinus rhythm heart rate 78 BPM. He remains on amiodarone 400 mg by mouth twice a day and metoprolol tartrate 50 mg by mouth twice a day. Objective - Vital Signs Vital signs: Vital Signs Temp 98.1 F 04/03/21 04:00 Pulse 70 04/03/21 04:00 Resp 18 04/03/21 04:00 BP 157/69 04/03/21 04:00 Pulse Ox 96 04/03/21 04:00 Intake & Output 04/02/21 04/03/21 04/03/21 18:59 06:59 18:59 Intake Total 100 260 Output Total 1125 1500 450 Balance -1025 -1500 -190 Weight 99 kg Intake: Intake, IV Titration 100 Amount Dextrose 5% in Water 100 100 ml @ 618 mls/hr IV .Q10M ONE with Amiodarone 150 mg Rx#:[id number] Oral 0 260 Output: Urine 1125 1500 450 Other: Voiding Method Urinal Urinal # Voids 1 # Bowel Movements 1 ABP, PAP, CO, CI - Last Documented Arterial Blood Pressure 104/75 Pulmonary Artery Pressure 48/25 Cardiac Output 5.1 Cardiac Index 2.4 - Exam CONSTITUTIONAL: Sitting up to the bedside chair on the cardiac stepdown unit, appears comfortable, cooperative, no apparent acute distress. HEENT: Neck is supple, no JVD, no lymphadenopathy. RESPIRATORY: Lungs sounds essentially clear throughout, diminished to his bilateral bases. Respirations are symmetrical and nonlabored. Currently on room air with oxygen saturations 96%. Able to achieve 1000 mL on his incentive spirometry. Strong cough. CARDIOVASCULAR: Regular rhythm and rate. S1 and S2 present, negative for S3, gallop or murmur. Sternum is stable. Palpable peripheral pulses bilaterally, +1 edema to his bilateral lower extremities. No calf pain or tenderness noted. Heart hugger in place with patient demonstrating appropriate use. Knee-high BUSHRA hose and sequential compression devices in place to his bilateral lower extremities. GASTROINTESTINAL: Abdomen soft, nontender, nondistended. Active bowel sounds present 4 quadrants. Tolerating diet. Passing flatus. No guarding or rigidity. GENITOURINARY: Continues to void. Output 700 mL in the last 8 hours INTEGUMENTARY: Skin is warm and dry with no evidence of clubbing or cyanosis. Midline sternal incision clean dry and well approximated, covered with dry intact dressing. MUSKULOSKELETAL: Able to move all extremities, strength equal bilaterally, generalized weakness. PSYCHIATRIC: Alert and oriented to person place and time, appropriate affect, intact judgment and insight. - Allied health notes Allied health notes reviewed: nursing - Labs CBC & Chem 7: 04/03/21 07:49 04/03/21 07:49 Labs: Abnormal Lab Results - Last 24 Hours (Table) 04/02/21 04/02/21 04/02/21 Range/Units 10:39 12:22 16:34 WBC (3.8-10.6) k/uL RBC (4.30-5.90) m/uL Hgb (13.0-17.5) gm/dL Hct (39.0-53.0) % Neutrophils # (1.3-7.7) k/uL Monocytes # (0-1.0) k/uL Sodium (137-145) mmol/L Carbon Dioxide (22-30) mmol/L BUN (9-20) mg/dL Glucose (74-99) mg/dL POC Glucose (mg/dL) 213 H 190 H (75-99) mg/dL Calcium (8.4-10.2) mg/dL Iron 9 L (65-175) ug/dL TIBC 218 L (228-460) ug/dL % Saturation 4.21 L (15.00-50.00) Transferrin 156.0 L (204.0-354.0) mg/dL 04/02/21 04/03/21 04/03/21 Range/Units 19:51 06:34 07:49 WBC 11.2 H (3.8-10.6) k/uL RBC 2.88 L (4.30-5.90) m/uL Hgb 8.5 L (13.0-17.5) gm/dL Hct 26.0 L (39.0-53.0) % Neutrophils # 8.4 H (1.3-7.7) k/uL Monocytes # 1.1 H (0-1.0) k/uL Sodium (137-145) mmol/L Carbon Dioxide (22-30) mmol/L BUN (9-20) mg/dL Glucose (74-99) mg/dL POC Glucose (mg/dL) 251 H 110 H (75-99) mg/dL Calcium (8.4-10.2) mg/dL Iron (65-175) ug/dL TIBC (228-460) ug/dL % Saturation (15.00-50.00) Transferrin (204.0-354.0) mg/dL 04/03/21 Range/Units 07:49 WBC (3.8-10.6) k/uL RBC (4.30-5.90) m/uL Hgb (13.0-17.5) gm/dL Hct (39.0-53.0) % Neutrophils # (1.3-7.7) k/uL Monocytes # (0-1.0) k/uL Sodium 134 L (137-145) mmol/L Carbon Dioxide 21 L (22-30) mmol/L BUN 34 H (9-20) mg/dL Glucose 182 H (74-99) mg/dL POC Glucose (mg/dL) (75-99) mg/dL Calcium 8.2 L (8.4-10.2) mg/dL Iron (65-175) ug/dL TIBC (228-460) ug/dL % Saturation (15.00-50.00) Transferrin (204.0-354.0) mg/dL - Imaging and Cardiology Chest x-ray: report reviewed, image reviewed Assessment and Plan Assessment: 1. Aortic valve disorder with predominant aortic valve regurgitation, evidence of bicuspid aortic valve with incomplete fusion of right and non-coronary cusps, status post aortic valve replacement 2. History of hypertension 3. History of hyperlipidemia, treated, cholesterol 161, LDL 73, triglycerides 56 4. Insulin-dependent diabetes, type I with insulin pump, preoperative hemoglobin A1c 7.6% 5. Asthma with recent exacerbation treated with steroids and antibiotic, moderate restrictive disease with preoperative FEV1 59% of predicted 6. Hypothyroid 7. GERD 8. Family history of premature coronary artery disease with father from myocardial infarction at 56 years old 9. Vaccinated with Moderna, last dose June 2020 10. Preoperative nasal screen positive for MSSA, treated 11. Postoperative acute blood loss anemia and thrombocytopenia, expected 12. Acute kidney injury, resolving 13. Postoperative atrial fibrillation, known common occurrence after open heart surgery, status post left atrial appendage ligation Plan: 1. Continue aspirin, statin, Plavix, beta caroline. Will increase metoprolol tartrate 75 mg by mouth twice a day. Continue hydralazine for afterload reduction. 2. Continue amiodarone 400 mg by mouth twice a day. 3. Encourage incentive spirometry use 10 times every hour while awake. Bronchodilators, inhaled steroids per pulmonology 4. Increase activity, ambulate as tolerated. PT/OT/cardiac rehab following. 5. Will monitor daily labs and chest x-rays. Electrolyte replacement per protocol. Lasix 20 mg IV 1 now. 6. GI/DVT prophylaxis. 7. Pain control with current medication regimen. 8. Insulin management per primary care service. Patient needs tight blood sugar control to promote healing and prevent infection. The patient has transitioned back to his home insulin pump. 9. May bladder scan and straight cath for greater than 300 mL residual. 10. Strict accurate intake and output. Daily weights. 11. Discharge planning is in place, anticipate discharge home within the next 24-48 hours 12. More recommendations to follow based on patient's clinical course. Time with Patient: Greater than 30
[2021-04-03] MEDS: AMIODARONE 200 MG TAB PO SCH ×2 (10:37→20:47)
[2021-04-03 12:15] LABS: Glucose,Whole Blood 239 mg/dL (75-99)
--- NOTE | 2021-04-03 12:38 | P.PN ---
Subjective Progress Note Date: 04/03/21 Principal diagnosis: Status post aortic valve replacement, postoperative day #4 This is a 70-year-old white male with history of diabetes, patient has insulin pump place, patient is also known to have history of asthma, hypertension, recent 2-D echo showed aortic valve regurgitation, and the patient was complaining of dyspnea on exertion. Initially his shortness of breath was blamed on his asthma, however further workup was done, patient had MIKAEL showing severe aortic valve regurgitation, mild aortic stenosis, ejection fraction of 45%, and he was also noted to have dilatation of the left ventricle and moderate hypertrophy. Patient was seen by cardiothoracic surgery on consultation, and today he underwent aortic valve replacement, patient was sent to the ICU on mechanical ventilation, and at the time I evaluated the patient, patient was already on weaning mode of mechanical ventilation using pressure support of 8 and PEEP of 8. Patient was actually on CPAP, and he was noted to be doing well. ABG was excellent, and shortly after my evaluation, I recommended extubating the patient. And this was done uneventfully. Chest x-ray showed no evidence of active disease. Labs were all reviewed, ABG was also reviewed. Patient was reevaluated today on 03/30/21, remains in the ICU, patient was extubated last night at 17:40 p.m., tolerated the extubation well. Patient is sitting at a bedside chair, in no distress. Chest x-ray today is reassuring with minimal expected postoperative atelectasis. Patient is on few liters nasal cannula, relatively asymptomatic, doing well with incentive spirometry. Achieving over 1000 mL. Patient is hemodynamically stable, not requiring any inotropes or any pressors. Continues to have right internal jugular Cordis, continues to have mediastinal/right pleural chest tubes remained, and he has a left radial arterial line. WBC count is 16.2 hemoglobin is 10.1 electrolytes are normal. Renal profile is normal. Reevaluated today on 03/31/21, patient remains in the ICU, he is now postoperative day #2. Patient is doing fairly well clinically however his renal functioning is worse today, and that being addressed accordingly, diuretics are presently on hold, patient is not on any nephrotoxic medications. Dopamine was started by cardiovascular surgery and renal perfusion dose. Clinically the patient is doing better, denies any pulmonary symptoms no cough no wheezing no shortness of breath, urine output is roughly about 15-25 ML per hour. Hemodynamically the patient is stable. He is on room air, O2 saturations 94% on room air. X-ray showed mostly bibasilar atelectasis. Patient was reevaluated today on 04/01/2021, remains in the ICU, he is presently on amiodarone drip, he is on room air, feeling quite well, his renal functioning is improving but not back to baseline. Clinically the patient is feeling great, asymptomatic, denies any cough wheezing or shortness of breath. Chest x-ray showed minimal bibasilar atelectasis. Creatinine today is up to 1.48, BUN is 50, WBC count is 10.7 hemoglobin is 8.2. Sodium is a bit low at 127, however will likely correct with cautious hydration. His blood sugar was elevated, so there is a component of mild pseudohyponatremia. Reevaluated today on 04/03/21, patient remains on the cardiac floor, he is postoperative day #4, no active pulmonary symptoms whatsoever. He is on room air, asymptomatic. Chest x-ray showed very small tiny small pleural effusion and minimal atelectasis. Objective - Vital Signs Vital signs: Vital Signs Temp 98.1 F 04/03/21 04:00 Pulse 72 04/03/21 12:09 Resp 16 04/03/21 12:09 BP 157/69 04/03/21 04:00 Pulse Ox 96 04/03/21 04:00 Intake & Output 04/02/21 04/03/21 04/03/21 18:59 06:59 18:59 Intake Total 100 260 Output Total 1125 1500 450 Balance -1025 -1500 -190 Weight 99 kg Intake: Intake, IV Titration 100 Amount Dextrose 5% in Water 100 100 ml @ 618 mls/hr IV .Q10M ONE with Amiodarone 150 mg Rx#:[id number] Oral 0 260 Output: Urine 1125 1500 450 Other: Voiding Method Urinal Urinal # Voids 1 # Bowel Movements 1 ABP, PAP, CO, CI - Last Documented Arterial Blood Pressure 104/75 Pulmonary Artery Pressure 48/25 Cardiac Output 5.1 Cardiac Index 2.4 - Exam CONSTITUTIONAL: Revealed a 70-year-old white male in no distress, extremely pleasant. On room air. RESPIRATORY: Symmetrical chest expansion, decreased breath sounds at the bases CARDIOVASCULAR: Distant S1 and S2, no S3 gallop, 2/6 systolic murmur thought the precordium. GASTROINTESTINAL: Soft nontender no megaly no rebound no guarding. INTEGUMENTARY: No rashes. No areas of erythema. NEUROLOGIC: Alert and oriented 3 focal deficits. MUSKULOSKELETAL: Deformities and no limitation in range of motion. PSYCHIATRIC: Normal mood, affect and normal mental status examination. - Labs CBC & Chem 7: 04/03/21 07:49 04/03/21 07:49 Labs: Abnormal Lab Results - Last 24 Hours (Table) 04/02/21 04/02/21 04/02/21 Range/Units 10:39 16:34 19:51 WBC (3.8-10.6) k/uL RBC (4.30-5.90) m/uL Hgb (13.0-17.5) gm/dL Hct (39.0-53.0) % Neutrophils # (1.3-7.7) k/uL Monocytes # (0-1.0) k/uL Sodium (137-145) mmol/L Carbon Dioxide (22-30) mmol/L BUN (9-20) mg/dL Glucose (74-99) mg/dL POC Glucose (mg/dL) 190 H 251 H (75-99) mg/dL Calcium (8.4-10.2) mg/dL Iron 9 L (65-175) ug/dL TIBC 218 L (228-460) ug/dL % Saturation 4.21 L (15.00-50.00) Transferrin 156.0 L (204.0-354.0) mg/dL 04/03/21 04/03/21 04/03/21 Range/Units 06:34 07:49 07:49 WBC 11.2 H (3.8-10.6) k/uL RBC 2.88 L (4.30-5.90) m/uL Hgb 8.5 L (13.0-17.5) gm/dL Hct 26.0 L (39.0-53.0) % Neutrophils # 8.4 H (1.3-7.7) k/uL Monocytes # 1.1 H (0-1.0) k/uL Sodium 134 L (137-145) mmol/L Carbon Dioxide 21 L (22-30) mmol/L BUN 34 H (9-20) mg/dL Glucose 182 H (74-99) mg/dL POC Glucose (mg/dL) 110 H (75-99) mg/dL Calcium 8.2 L (8.4-10.2) mg/dL Iron (65-175) ug/dL TIBC (228-460) ug/dL % Saturation (15.00-50.00) Transferrin (204.0-354.0) mg/dL 04/03/21 Range/Units 12:14 WBC (3.8-10.6) k/uL RBC (4.30-5.90) m/uL Hgb (13.0-17.5) gm/dL Hct (39.0-53.0) % Neutrophils # (1.3-7.7) k/uL Monocytes # (0-1.0) k/uL Sodium (137-145) mmol/L Carbon Dioxide (22-30) mmol/L BUN (9-20) mg/dL Glucose (74-99) mg/dL POC Glucose (mg/dL) 239 H (75-99) mg/dL Calcium (8.4-10.2) mg/dL Iron (65-175) ug/dL TIBC (228-460) ug/dL % Saturation (15.00-50.00) Transferrin (204.0-354.0) mg/dL Assessment and Plan Assessment: Impression: Status post aortic valve replacement. Postoperative day #5 Acute kidney injury, resolved. Severe aortic regurgitation and mild aortic stenosis. Chronic dyspnea on exertion. History of moderate persistent bronchial asthma. History of type 1 diabetes, on insulin pump. History of hypothyroidism. Dyslipidemia. History of GERD. History of hypertension. New onset atrial fibrillation with RVR, postoperatively, expected. Patient is presently on amiodarone. Recommendation: Possible discharge planning in the next 24-48 hours. Continue to hold diuretics. Continue amiodarone. Continue to monitor daily renal profile. Continue incentive spirometry, Continue bronchodilators. Continue aspirin statins and beta blockers. Ambulate. We will continue to follow. Time with Patient: Less than 30
--- NOTE | 2021-04-03 14:56 | PN ---
PROGRESS NOTE Mr. Glasgow is in sinus rhythm. He is status post aortic valve replacement for severe aortic insufficiency, maintaining sinus rhythm. No atrial fib episodes. Vital signs stable. The patient is doing well, but has not been doing much ambulation. Advised to gradually increase activity, work with incentive spirometry and pulmonary toilet. Vitals signs are stable. His creatinine has improved. S1-S2 heard normally. Short systolic murmur at the base is audible. Lungs revealed improved air entry. Abdomen is soft. Lower extremities reveal diminished pulses. Central system grossly within normal limits. MMODL / IJN: [id number] /
[2021-04-03] MEDS ORDERED: FUROSEMIDE 40 MG TAB PO SCH (16:00)
[2021-04-03 16:43] LABS: Glucose,Whole Blood 125 mg/dL (75-99)
[2021-04-03] MEDS ORDERED: SODIUM FERRIC GLUCONAT-SUCROSE 125 MG in SODIUM CHLORIDE 0.9% 100 ML IVPB ONE (17:00)
--- NOTE | 2021-04-03 19:07 | P.PN ---
Subjective Progress Note Date: 04/03/21 HISTORY OF PRESENT ILLNESS [age]-year-old male one of Dr. Marcano patient with past medical history of type 1 diabetes on insulin pump who had history of asthma seen Dr. Harry chapa on regular basis, known to have history of hypertension hyperlipidemia and hypothyroidism who was hospitalized in February 07 to 02/10/2021 for worsening dyspnea and shortness of breath ended up going for further workup including heart catheter and transthoracic echocardiogram and process is Optigene echocardiogram findings were consistent with severe aortic stenosis with no major coronary artery involvement. Patient ended up seeing cardiothoracic surgeon Dr. Torres and plan to do an elective aortic valve placement which was done successfully, patient was on mechanical ventilation for sure. Of time and was weaned off shortly after he seen pulmonary ready. His blood sugar has been better controlled currently with insulin drip which will be continued this point until patient is able to take oral intake with switch him to insulin pump. Patient otherwise stable hemodynamically doing well he is maintaining his on airway on the hardly any vasopressor. 03/30: Patient is seen in the intensive care unit. He is sitting up in a recliner appears to be comfortable. He is currently on insulin drip which we will plan to transition over to Levemir tonight and in about one day or so, patient will be transitioned to his insulin pump. Blood sugars are running 121- 187. Right cordis and chest tubes remains in place. Patient does have chest discomfort, no complaints of shortness of breath. cra officer sinus rhythm with occasional PVCs. He has not required vasopressors. Patient has been afebrile. WBC 16.2, hemoglobin 10.1, platelet count 149. Sodium 133, potassium 5.1, chloride 109, CO2 19, BUN 24 and creatinine 0.82. Magnesium 2.4. Repeat chest x-ray reveals probable basilar atelectasis. Patient is reaching 1000 on incentive spirometry. 03/31: Remains in intensive care unit, he is up sitting in a chair and recliner and appears to be quite comfortable. Patient overall looks much improved from yesterday. His chest tubes are out. He is working today with physical therapy. He ate breakfast this morning. He denies any nausea vomiting or diarrhea. Chest discomfort is controlled. He denies any fever or chills, denies cough. He has been afebrile, heart rate in the 80s and 90s, blood pressure 111/57, pulse ox 95% on room air. Repeat blood work reveals WBC 12.9, hemoglobin 8.8, platelet count 117. Sodium 130, potassium 5.1, chloride 105, CO2 19, BUN 40 cre atinine 2.34. Blood sugars are running 128 274. Patient did receive a dose of Levemir last evening but unclear why insulin drip was not discontinued. We will increase Levemir to 20 units and switch patient over to scale insulin with plan to transition him to insulin pump tomorrow. 04/01: Patient is found sitting up in recliner and appears to be comfortable. Patient's blood sugars have been uncontrolled starting yesterday at supper of 260, bedtime 394, 7 AM 310. The following changes have been made. Capillary blood glucose every 2 hours, insulin scale every 2 hours, additional 10 units n ow, increase NovoLog 6 units with meals, Levemir increased to 15 units twice daily. WBC is 10.7, hemoglobin 8.2, platelet count 110. BUN 50 and creatinine 1.48. Sodium 127. Patient is on amiodarone drip. Repeat chest x-ray reveals bilateral infiltrate and pleural effusion greater on the left. 04/02: Patient remains in intensive care unit. He has been transitioned over to his insulin pump and blood sugars are improved but actually hypo-glycemic with blood sugar of 49 this morning. He states his pain is controlled. Difficulty in breathing is stable. Patient has been transitioned to oral amiodarone and metoprolol for atrial fibrillation. He is afebrile, heart rate 60, blood pressure 116/51, pulse ox 90% on room air. Repeat blood work reveals WBC 14.2, hemoglobin 8.6, platelet count 193. Sodium 134, potassium 4.5, chloride 108, CO2 20, BUN 40. Creatinine 1.2. Liver function tests normal. Discharge plan is to return home with [facility] care. 04/03: Patient admitted to the medical floor, has shortness of breath on exertion, no chest pain no palpitations, patient is anemic hemoglobin of 8.5, WBC count 11.2, creatinine of 1.14, patient denies any urinary retention at this time, has some lower extremity edema, blood sugars are between 110-251, vitals are stable, heart rate 73, pulse ox 96% room air, blood pressure 130/62 patient would receive IV for illicit, thereafter oral iron supplementation can be provided. For symptomatic anemia patient will need when necessary Lasix, as for edema, which could be given in a.m. Patient was given furosemide 20 mg 1 dose today continue PT OT REVIEW OF SYSTEMS Constitutional: No fever, no chills, no night sweats. No weight change. No weakness, fatigue or lethargy. No daytime sleepiness. EENT: No headache. No blurred vision or double vision, no loss of vision. No loss of Hearing, no ringing in the ears, no dizziness. No nasal drainage or congestion. No epistaxis. No sore throat. Lungs: 3 chest tube at this point patient is awake able to maintain his on airway No shortness of breath, cough, no sputum production. No wheezing. Cardiovascular: Chest discomfort secondary to placement and left atrial appendage so far no complication no arrhythmia, no lower extremity edema. No palpitations. Abdominal: No abdominal pain. No nausea, vomiting. No diarrhea. No constipation. No bloody or tarry stools.. No loss of appetite. Genitourinary: No dysuria, increased frequency, urgency. No urinary retention. Musculoskeletal: No myalgias. No muscle weakness, no gait dysfunction, no frequent falls. No back pain. No neck pain. Integumentary: No wounds, no lesions. No rash or pruritus. No unusual bruising. No change in hair or nails. Neurologic: No aphasia. No facial droop. No change in mentation. No head injury. No headache. No paralysis. No paresthesia. Psychiatric: No depression. No anxiety. No mood swings. Endocrine: Noted abnormal blood sugars. No weight change. PHYSICAL EXAMINATION Gen: This is a 70-year-old lresting in bedin ICU and appears to be in no acute distress. HEENT: Head is atraumatic, normocephalic. Pupils equal, round. Sclerae is anicteric. NECK: Supple. No JVD. No lymphadenopathy. No thyromegaly. LUNGS: His 3 chest tube at this point, decreased breath sound in the left side no rhonchi crackles or wheezes. HEART: Regular rate and rhythm. 2/6 systolic murmur. ABDOMEN: Soft. Bowel sounds are present. No masses. No tenderness. EXTREMITIES: No pedal edema. No calf tenderness. NEUROLOGICAL: Patient is awake, alert and oriented x3. Cranial nerves 2 through 12 are grossly intact. ASSESSMENT AND PLAN 1. Post aortic valve placement and left at 2 appendage, postop day #5. Continue current plan per cardiothoracic team. 2 type 1 diabetes uncontrolled with hyperglycemia. Patient has been resumed on insulin pump 3 hypertension. Continue hydralazine 50 g every 8 hour, Lopressor 50 mg 2times daily 4 hyperlipidemia: Continue patient on atorvastatin 40 mg daily. 5 history of asthma: Patient seen pulmonary on regular basis and was on Pulmicort and Ventolin inhaler with continue nebulizer management as well this point. Patient is still on Singulair 10 mg a day which will be resumed. 6 hypothyroidism: Has been on levothyroxine 150 g daily resume medication. 7 severe GERD/GI prophylaxis: Continue Protonix 8 thrombocytopenia, POA. 9. Acute kidney injury, resolved . Continue to monitor renal function, avoid hypotension and nephrotoxic agents. 10. Paroxysmal atrial fibrillation. Patient is on amiodarone 400 mg twice daily, Lopressor 50 mg twice daily. DVT prophylaxis: Continue patient on heparin 5000 units subcutaneous 3 times a day. 12. Exertional dyspnea, postoperatively, could be related to symptomatic anemia, iron infusion one-time dose of for illicit 125 mg 13. Edema, IV Lasix when necessary 14. Iron deficiency anemia, precipitous drop of hemoglobin iron infusion, for illicit, 125 mg, thereafter oral iron can be given, right before discharge DISCHARGE PLAN Home with [facility] Objective - Vital Signs Vital signs: Vital Signs Temp 98.1 F 04/03/21 04:00 Pulse 72 04/03/21 15:34 Resp 16 04/03/21 15:34 BP 157/69 04/03/21 04:00 Pulse Ox 96 04/03/21 04:00 Intake & Output 04/02/21 04/03/21 04/03/21 18:59 06:59 18:59 Intake Total 100 380 Output Total 1125 1500 750 Balance -1025 -1500 -370 Weight 99 kg Intake: Intake, IV Titration 100 Amount Dextrose 5% in Water 100 100 ml @ 618 mls/hr IV .Q10M ONE with Amiodarone 150 mg Rx#:[id number] Oral 0 380 Output: Urine 1125 1500 750 Other: Voiding Method Urinal Urinal # Voids 1 # Bowel Movements 1 ABP, PAP, CO, CI - Last Documented Arterial Blood Pressure 104/75 Pulmonary Artery Pressure 48/25 Cardiac Output 5.1 Cardiac Index 2.4 - Labs CBC & Chem 7: 04/03/21 07:49 04/03/21 07:49 Labs: Abnormal Lab Results - Last 24 Hours (Table) 04/02/21 04/02/21 04/02/21 Range/Units 10:39 16:34 19:51 WBC (3.8-10.6) k/uL RBC (4.30-5.90) m/uL Hgb (13.0-17.5) gm/dL Hct (39.0-53.0) % Neutrophils # (1.3-7.7) k/uL Monocytes # (0-1.0) k/uL Sodium (137-145) mmol/L Carbon Dioxide (22-30) mmol/L BUN (9-20) mg/dL Glucose (74-99) mg/dL POC Glucose (mg/dL) 190 H 251 H (75-99) mg/dL Calcium (8.4-10.2) mg/dL Iron 9 L (65-175) ug/dL TIBC 218 L (228-460) ug/dL % Saturation 4.21 L (15.00-50.00) Transferrin 156.0 L (204.0-354.0) mg/dL 04/03/21 04/03/21 04/03/21 Range/Units 06:34 07:49 07:49 WBC 11.2 H (3.8-10.6) k/uL RBC 2.88 L (4.30-5.90) m/uL Hgb 8.5 L (13.0-17.5) gm/dL Hct 26.0 L (39.0-53.0) % Neutrophils # 8.4 H (1.3-7.7) k/uL Monocytes # 1.1 H (0-1.0) k/uL Sodium 134 L (137-145) mmol/L Carbon Dioxide 21 L (22-30) mmol/L BUN 34 H (9-20) mg/dL Glucose 182 H (74-99) mg/dL POC Glucose (mg/dL) 110 H (75-99) mg/dL Calcium 8.2 L (8.4-10.2) mg/dL Iron (65-175) ug/dL TIBC (228-460) ug/dL % Saturation (15.00-50.00) Transferrin (204.0-354.0) mg/dL 04/03/21 Range/Units 12:14 WBC (3.8-10.6) k/uL RBC (4.30-5.90) m/uL Hgb (13.0-17.5) gm/dL Hct (39.0-53.0) % Neutrophils # (1.3-7.7) k/uL Monocytes # (0-1.0) k/uL Sodium (137-145) mmol/L Carbon Dioxide (22-30) mmol/L BUN (9-20) mg/dL Glucose (74-99) mg/dL POC Glucose (mg/dL) 239 H (75-99) mg/dL Calcium (8.4-10.2) mg/dL Iron (65-175) ug/dL TIBC (228-460) ug/dL % Saturation (15.00-50.00) Transferrin (204.0-354.0) mg/dL
[2021-04-03 19:11] LABS: Glucose,Whole Blood 136 mg/dL (75-99)
[2021-04-03] MEDS: SENNOSIDES-DOCUSATE SODIUM 1 EACH TAB PO SCH (20:46)
[2021-04-03] MEDS: MONTELUKAST 10 MG TAB PO SCH (20:47)
[2021-04-03] MEDS: ATORVASTATIN 40 MG TAB PO SCH (20:47)
[2021-04-03] MEDS: KETOROLAC 30 MG/ML 1 ML VIAL IVP SCH (22:38)
[2021-04-04 01:19] LABS: Glucose,Whole Blood 157 mg/dL (75-99)
[2021-04-04] MEDS: LEVOTHYROXINE 75 MCG TAB PO SCH (06:22)
[2021-04-04] MEDS: PANTOPRAZOLE 40 MG TABLET PO SCH (06:22)
[2021-04-04 06:48] LABS: Glucose,Whole Blood 147 mg/dL (75-99)
[2021-04-04] MEDS: BUDESONIDE 1 MG/2 ML NEBU INHALATION SCH ×2 (07:30→20:56)
[2021-04-04] MEDS: IPRATROPIUM-ALBUTEROL 3 ML NEB INHALATION SCH ×4 (07:30→20:56)
[2021-04-04] MEDS: HEPARIN SODIUM,PORCINE/PF 5,000 UNIT/0.5 ML SYRINGE SQ SCH (08:21)
[2021-04-04] MEDS: AMIODARONE 200 MG TAB PO SCH ×2 (08:22→21:14)
[2021-04-04] MEDS: CLOPIDOGREL 75 MG TAB PO SCH (08:23)
[2021-04-04] MEDS: hydrALAZINE HCL 25 MG TAB PO SCH (08:23)
[2021-04-04] MEDS: ASPIRIN 81 MG PO SCH (08:24)
[2021-04-04] MEDS: METOPROLOL TARTRATE 25 MG TAB PO SCH ×2 (08:25→21:14)
[2021-04-04] MEDS ORDERED: FUROSEMIDE 10 MG/ML 4 ML VIAL IV SCH (09:00)
[2021-04-04] MEDS ORDERED: LOSARTAN 50 MG TAB PO SCH (09:00)
--- NOTE | 2021-04-04 09:00 | P.PN ---
Subjective Progress Note Date: 04/04/21 Principal diagnosis: This is a 70-year-old male seen in consultation for Acute kidney injury and hyponatremia, He is postop aortic valve replacement day 6 today. He is feeling much better sitting in a chair. He is off of oxygen and shortness of breath has improved significantly. Appetite is good No fever chills, nausea vomiting diarrhea. Vital signs are stable. His edema is better being given when necessary Lasix. Creatinine is down to 1.14 as of yesterday Objective - Vital Signs Vital signs: Vital Signs Temp 98.1 F 04/04/21 04:00 Pulse 82 04/04/21 07:42 Resp 20 04/04/21 04:00 BP 135/65 04/04/21 04:00 Pulse Ox 96 04/04/21 04:00 Intake & Output 04/03/21 04/04/21 04/04/21 18:59 06:59 18:59 Intake Total 380 Output Total 750 950 Balance -370 -950 Weight 99.1 kg Intake: Oral 380 Output: Urine 750 950 Straight 650 Other: Voiding Method Urinal Urinal # Bowel Movements 1 ABP, PAP, CO, CI - Last Documented Arterial Blood Pressure 104/75 Pulmonary Artery Pressure 48/25 Cardiac Output 5.1 Cardiac Index 2.4 On examination is awake alert oriented comfortable on room air. HEENT exam no JVP neck is supple no facial asymmetry Lungs are clear to auscultation good air entry bilaterally Heart sounds are irregular. Abdomen soft nontender Extremity exam was minimal edema Neurologically awake alert oriented - Labs CBC & Chem 7: 04/03/21 07:49 04/03/21 07:49 Labs: Abnormal Lab Results - Last 24 Hours (Table) 04/03/21 04/03/21 04/03/21 Range/Units 07:49 12:14 16:42 Sodium 134 L (137-145) mmol/L Carbon Dioxide 21 L (22-30) mmol/L BUN 34 H (9-20) mg/dL Glucose 182 H (74-99) mg/dL POC Glucose (mg/dL) 239 H 125 H (75-99) mg/dL Calcium 8.2 L (8.4-10.2) mg/dL 04/03/21 04/04/21 04/04/21 Range/Units 19:09 01:18 06:27 Sodium (137-145) mmol/L Carbon Dioxide (22-30) mmol/L BUN (9-20) mg/dL Glucose (74-99) mg/dL POC Glucose (mg/dL) 136 H 157 H 147 H (75-99) mg/dL Calcium (8.4-10.2) mg/dL Assessment and Plan Assessment: Impression 1. Acute kidney injury secondary to, from combination of Toradol and volume excess. Creatinine has improved from 2.34-1.14 yesterday morning 2. Hyponatremia from volume excess improved with diuretics sodium is 134 as of yesterday 3. Mild degree of non-gap acidosis from acute kidney injury improving bicarb is up to 21, as of yesterday 4. Anemia hemoglobin is down to 8.5. 6. Iron deficiency saturation is 4.2% on 04/02/2021 Recommendations 1. Try gentle and cautious diuresis with Lasix 20 mg by mouth daily on a when necessary basis. 2. Watch labs blood pressure urine output 3. Continue ferrous sulfate 325 twice a day
[2021-04-04 09:07] LABS: HCT 26.6 % (39.0-53.0); HGB 8.5 gm/dL (13.0-17.5); MCH 28.7 pg (25.0-35.0); MCHC 31.8 g/dL (31.0-37.0); MCV 90.2 fL (80.0-100.0); Mean Platelet Volume 7.8; Platelet Count 318 k/uL (150-450); RBC 2.95 m/uL (4.30-5.90); RDW 14.4 % (11.5-15.5)
[2021-04-04 09:24] LABS: Calcium 8.7 mg/dL (8.4-10.2); Magnesium 2.3 mg/dL (1.6-2.3); Potassium 5.1 mmol/L (3.5-5.1)
--- NOTE | 2021-04-04 09:40 | XR ---
EXAMINATION TYPE: XR chest 1V portable DATE OF EXAM: 04/04/2021 COMPARISON: 04/03/2021 HISTORY: 70 years Male. STUDY INDICATION GIVEN: Postoperative aortic valve replacement . TECHNIQUE: AP chest radiograph IMPRESSION: No significant change to bibasilar left greater than right opacities on a background of mild intersti tial edema. Stable small left pleural effusion. No right pleural effusion. No pneumothorax. Stable mild cardiomegaly with postsurgical changes.
--- NOTE | 2021-04-04 10:04 | P.PN ---
Subjective Progress Note Date: 04/04/21 Principal diagnosis: Aortic valve disorder with predominant aortic valve regurgitation, evidence of bicuspid aortic valve with incomplete fusion of right and non-coronary cusps. P ast medical history significant for hypertension, hyperlipidemia, Type 1 insulin-dependent diabetes, asthma with recent exacerbation treated with steroids, hypothyroid, history of a broken pelvis and drop foot to his right foot from 2010, history of urinary retention in 2010 requiring discharge home with Oropeza catheter, GERD and family history of premature coronary artery disease with father from myocardial infarction at 56 years old. Preoperative nasal screen positive for MSSA POD #6 aortic valve replacement using a 25 mm Inspiris pericardial bioprosthesis, exclusion of the left atrial appendage using a 35 mm AtriClip, intraoperative transesophageal echocardiogram and epi-aortic scanning Postoperative acute blood loss anemia and thrombocytopenia, expected given hemodilution, cardiopulmonary bypass pump Acute kidney injury, unexpected Postoperative atrial fibrillation, known common occurrence after open heart surgery The patient was seen in follow-up today 04/04/2021 at his bedside on the cardiac stepdown unit. Currently sitting up to the bedside chair, is awake, alert and oriented 3 and is in no acute apparent distress. He denies any complaints of shortness breath or pain at this time. He does although complaining of shortness of breath with ambulation, although reports his shortness of breath recovers quickly with rest. The patient did have an episode of atrial fibrillation this morning with ambulating with a heart rate of 118 bpm. Once the patient rested his heart rate was normal sinus 77 BPM. The patient reports that he did have some urinary retention this morning requiring straight catheterization with 650 mL of urine drained. He also reports that he does have a history of urinary retention requiring discharge home with a Oropeza catheter after a fractured pelvis injury in 2010. Oxygen saturations are 96% on room air and he is achieving 1500 mL on his incentive spirometry with encouragement. The patient does have his own insulin pump in place. Laboratory results this morning show a WBC count of 12.0, hemoglobin 8.5, hematocrit 26.6, platelets 318, sodium 135, potassium 5.1, BUN 33, and creatinine 1.08. His BUN and creatinine continued to trend down. He has been afebrile the last 24 hours. No new complaints. Objective - Vital Signs Vital signs: Vital Signs Temp 98.1 F 04/04/21 04:00 Pulse 82 04/04/21 07:42 Resp 20 04/04/21 04:00 BP 135/65 04/04/21 04:00 Pulse Ox 96 04/04/21 04:00 Intake & Output 04/03/21 04/04/21 04/04/21 18:59 06:59 18:59 Intake Total 380 118 Output Total 750 950 100 Balance -370 -950 18 Weight 99.1 kg Intake: Oral 380 118 Output: Urine 750 950 100 Straight 650 Other: Voiding Method Urinal Urinal # Bowel Movements 1 ABP, PAP, CO, CI - Last Documented Arterial Blood Pressure 104/75 Pulmonary Artery Pressure 48/25 Cardiac Output 5.1 Cardiac Index 2.4 - Exam CONSTITUTIONAL: Sitting up to the bedside chair on the cardiac stepdown unit, appears comfortable, cooperative, no apparent acute distress. HEENT: Neck is supple, no JVD, no lymphadenopathy. RESPIRATORY: Lungs sounds essentially clear throughout, diminished to his bilateral bases. Respirations are symmetrical and nonlabored. Currently on room air with oxygen saturations 96%. Able to achieve 1500 mL on his incentive spirometry. Strong cough. CARDIOVASCULAR: Regular rhythm and rate. S1 and S2 present, negative for S3, gallop or murmur. Sternum is stable. Palpable peripheral pulses bilaterally, +1 edema to his bilateral lower extremities. No calf pain or tenderness noted. Heart hugger in place with patient demonstrating appropriate use. Knee-high BUSHRA hose and sequential compression devices in place to his bilateral lower extremities. Remote telemetry showing normal sinus rhythm heart rate 77 BPM. GASTROINTESTINAL: Abdomen soft, nontender, nondistended. Active bowel sounds present 4 quadrants. Tolerating diet. Passing flatus. No guarding or rigidity. GENITOURINARY: Continues to void, although required straight catheterization this morning. Output 750 mL in the last 8 hours INTEGUMENTARY: Skin is warm and dry with no evidence of clubbing or cyanosis. Midline sternal incision clean dry and well approximated, covered with dry intact dressing. MUSKULOSKELETAL: Able to move all extremities, strength equal bilaterally, generalized weakness. PSYCHIATRIC: Alert and oriented to person place and time, appropriate affect, intact judgment and insight. - Allied health notes Allied health notes reviewed: nursing - Labs CBC & Chem 7: 04/04/21 07:47 04/04/21 07:47 Labs: Abnormal Lab Results - Last 24 Hours (Table) 04/03/21 04/03/21 04/03/21 Range/Units 12:14 16:42 19:09 WBC (3.8-10.6) k/uL RBC (4.30-5.90) m/uL Hgb (13.0-17.5) gm/dL Hct (39.0-53.0) % Sodium (137-145) mmol/L Carbon Dioxide (22-30) mmol/L BUN (9-20) mg/dL Glucose (74-99) mg/dL POC Glucose (mg/dL) 239 H 125 H 136 H (75-99) mg/dL 04/04/21 04/04/21 04/04/21 Range/Units 01:18 06:27 07:47 WBC 12.0 H (3.8-10.6) k/uL RBC 2.95 L (4.30-5.90) m/uL Hgb 8.5 L (13.0-17.5) gm/dL Hct 26.6 L (39.0-53.0) % Sodium (137-145) mmol/L Carbon Dioxide (22-30) mmol/L BUN (9-20) mg/dL Glucose (74-99) mg/dL POC Glucose (mg/dL) 157 H 147 H (75-99) mg/dL 04/04/21 Range/Units 07:47 WBC (3.8-10.6) k/uL RBC (4.30-5.90) m/uL Hgb (13.0-17.5) gm/dL Hct (39.0-53.0) % Sodium 135 L (137-145) mmol/L Carbon Dioxide 20 L (22-30) mmol/L BUN 33 H (9-20) mg/dL Glucose 142 H (74-99) mg/dL POC Glucose (mg/dL) (75-99) mg/dL - Imaging and Cardiology Chest x-ray: report reviewed, image reviewed Assessment and Plan Assessment: 1. Aortic valve disorder with predominant aortic valve regurgitation, evidence of bicuspid aortic valve with incomplete fusion of right and non-coronary cusps, status post aortic valve replacement 2. History of hypertension 3. History of hyperlipidemia, treated, cholesterol 161, LDL 73, triglycerides 56 4. Insulin-dependent diabetes, type I with insulin pump, preoperative hemoglobin A1c 7.6% 5. Asthma with recent exacerbation treated with steroids and antibiotic, moderate restrictive disease with preoperative FEV1 59% of predicted 6. Hypothyroid 7. GERD 8. Family history of premature coronary artery disease with father from myocardial infarction at 56 years old 9. Vaccinated with Moderna, last dose June 2020 10. Preoperative nasal screen positive for MSSA, treated 11. Postoperative acute blood loss anemia and thrombocytopenia, expected 12. Acute kidney injury, resolving 13. History of urinary retention in 2010 requiring discharge home with Oropeza catheter after a fractured pelvis injury 14. History of drop with to his right foot, status post his pelvic fracture in 2010 15. Postoperative atrial fibrillation, known common occurrence after open heart surgery, status post left atrial appendage ligation Plan: 1. Continue statin, Plavix, beta caroline. Will increase metoprolol tartrate as tolerated. 2. Continue amiodarone 400 mg by mouth twice a day. We will titrate the amiodarone tomorrow to 200 mg by mouth twice a day. 3. Encourage incentive spirometry use 10 times every hour while awake. Bronchodilators, inhaled steroids per pulmonology 4. Increase activity, ambulate as tolerated. PT/OT/cardiac rehab following. 5. Will monitor daily labs and chest x-rays. Electrolyte replacement per protocol. 6. GI/DVT prophylaxis. 7. Pain control with current medication regimen. 8. Insulin management per primary care service. Patient needs tight blood sugar control to promote healing and prevent infection. The patient has t ransitioned back to his home insulin pump. 9. May bladder scan and straight cath for greater than 300 mL residual. 10. Strict accurate intake and output. Daily weights. 11. Discontinue hydralazine and start the patient on Cozaar 75 mg by mouth daily at noon for afterload reduction. 12. He has been started on Lasix 40 mg IV daily per primary care service. 13. Discontinue aspirin, and subcu heparin, he will be started on Eliquis 5 mg by mouth twice a day due to his atrial fibrillation. 14. Discharge planning is in place, anticipate discharge home within the next 24-48 hours 15. We have asked the patient to ask his to bring his brace for his right foot. 16. More recommendations to follow based on patient's clinical course. Time with Patient: Greater than 30
[2021-04-04] MEDS: APIXABAN 5 MG TAB PO SCH ×2 (10:23→21:14)
[2021-04-04] MEDS: TAMSULOSIN 0.4 MG CAP.ER.24H PO SCH ×2 (10:23→15:35)
[2021-04-04 11:41] LABS: Glucose,Whole Blood 243 mg/dL (75-99)
--- NOTE | 2021-04-04 12:54 | PN ---
PROGRESS NOTE Mr. Glasgow had episodes of atrial fibrillation, but he is doing well overall. His discharge will be coordinated by cardiac surgery. However, he is maintaining sinus rhythm this morning. He has had episodes of atrial fib. He is on amiodarone. I am recommending that he should be anticoagulated. Vital signs stable. JVD 1 cm. No carotid bruit. Short systolic murmur noted. Lungs reveal improved entry. Abdomen and lower extremity exam unchanged. Patient is in sinus rhythm today, but has had atrial fibrillation intermittently. Would recommend anticoagulation. He is status post aortic valve replacement with a tissue valve. MMODL / IJN: [id number] /
--- NOTE | 2021-04-04 13:21 | P.PN ---
Subjective Progress Note Date: 04/04/21 HISTORY OF PRESENT ILLNESS [age]-year-old male one of Dr. Marcano patient with past medical history of type 1 diabetes on insulin pump who had history of asthma seen Dr. Harry chapa on regular basis, known to have history of hypertension hyperlipidemia and hypothyroidism who was hospitalized in February 07 to 02/10/2021 for worsening dyspnea and shortness of breath ended up going for further workup including heart catheter and transthoracic echocardiogram and process is Optigene echocardiogram findings were consistent with severe aortic stenosis with no major coronary artery involvement. Patient ended up seeing cardiothoracic surgeon Dr. Torres and plan to do an elective aortic valve placement which was done successfully, patient was on mechanical ventilation for sure. Of time and was weaned off shortly after he seen pulmonary ready. His blood sugar has been better controlled currently with insulin drip which will be continued this point until patient is able to take oral intake with switch him to insulin pump. Patient otherwise stable hemodynamically doing well he is maintaining his on airway on the hardly any vasopressor. 03/30: Patient is seen in the intensive care unit. He is sitting up in a recliner appears to be comfortable. He is currently on insulin drip which we will plan to transition over to Levemir tonight and in about one day or so, patient will be transitioned to his insulin pump. Blood sugars are running 121- 187. Right cordis and chest tubes remains in place. Patient does have chest discomfort, no complaints of shortness of breath. site monitor sinus rhythm with occasional PVCs. He has not required vasopressors. Patient has been afebrile. WBC 16.2, hemoglobin 10.1, platelet count 149. Sodium 133, potassium 5.1, chloride 109, CO2 19, BUN 24 and creatinine 0.82. Magnesium 2.4. Repeat chest x-ray reveals probable basilar atelectasis. Patient is reaching 1000 on incentive spirometry. 03/31: Remains in intensive care unit, he is up sitting in a chair and recliner and appears to be quite comfortable. Patient overall looks much improved from yesterday. His chest tubes are out. He is working today with physical therapy. He ate breakfast this morning. He denies any nausea vomiting or diarrhea. Chest discomfort is controlled. He denies any fever or chills, denies cough. He has been afebrile, heart rate in the 80s and 90s, blood pressure 111/57, pulse ox 95% on room air. Repeat blood work reveals WBC 12.9, hemoglobin 8.8, platelet count 117. Sodium 130, potassium 5.1, chloride 105, CO2 19, BUN 40 cre atinine 2.34. Blood sugars are running 128 274. Patient did receive a dose of Levemir last evening but unclear why insulin drip was not discontinued. We will increase Levemir to 20 units and switch patient over to scale insulin with plan to transition him to insulin pump tomorrow. 04/01: Patient is found sitting up in recliner and appears to be comfortable. Patient's blood sugars have been uncontrolled starting yesterday at supper of 260, bedtime 394, 7 AM 310. The following changes have been made. Capillary blood glucose every 2 hours, insulin scale every 2 hours, additional 10 units n ow, increase NovoLog 6 units with meals, Levemir increased to 15 units twice daily. WBC is 10.7, hemoglobin 8.2, platelet count 110. BUN 50 and creatinine 1.48. Sodium 127. Patient is on amiodarone drip. Repeat chest x-ray reveals bilateral infiltrate and pleural effusion greater on the left. 04/02: Patient remains in intensive care unit. He has been transitioned over to his insulin pump and blood sugars are improved but actually hypo-glycemic with blood sugar of 49 this morning. He states his pain is controlled. Difficulty in breathing is stable. Patient has been transitioned to oral amiodarone and metoprolol for atrial fibrillation. He is afebrile, heart rate 60, blood pressure 116/51, pulse ox 90% on room air. Repeat blood work reveals WBC 14.2, hemoglobin 8.6, platelet count 193. Sodium 134, potassium 4.5, chloride 108, CO2 20, BUN 40. Creatinine 1.2. Liver function tests normal. Discharge plan is to return home with [facility] care. 04/03: Patient admitted to the medical floor, has shortness of breath on exertion, no chest pain no palpitations, patient is anemic hemoglobin of 8.5, WBC count 11.2, creatinine of 1.14, patient denies any urinary retention at this time, has some lower extremity edema, blood sugars are between 110-251, vitals are stable, heart rate 73, pulse ox 96% room air, blood pressure 130/62 patient would receive IV for illicit, thereafter oral iron supplementation can be provided. For symptomatic anemia patient will need when necessary Lasix, as for edema, which could be given in a.m. Patient was given furosemide 20 mg 1 dose today continue PT OT 04/04: Patient is to doing better, has diuresed, with Lasix 40 IV, required str aight cath last night, times one, Flomax initiated. Patient does not have any urine pressure at this time, no dysuria, we'll going to transition him to oral Lasix 20 mg twice a day as per home. completed one-time dose of Ferrlecit IV Vital signs stable, anticipate home discharge with therapy in the morning REVIEW OF SYSTEMS Constitutional: No fever, no chills, no night sweats. No weight change. No weakness, fatigue or lethargy. No daytime sleepiness. EENT: No headache. No blurred vision or double vision, no loss of vision. No loss of Hearing, no ringing in the ears, no dizziness. No nasal drainage or congestion. No epistaxis. No sore throat. Lungs: 3 chest tube at this point patient is awake able to maintain his on airway No shortness of breath, cough, no sputum production. No wheezing. Cardiovascular: Chest discomfort secondary to placement and left atrial appendage so far no complication no arrhythmia, no lower extremity edema. No palpitations. Abdominal: No abdominal pain. No nausea, vomiting. No diarrhea. No constipation. No bloody or tarry stools.. No loss of appetite. Genitourinary: No dysuria, increased frequency, urgency. No urinary retention. Musculoskeletal: No myalgias. No muscle weakness, no gait dysfunction, no wesley quent falls. No back pain. No neck pain. Integumentary: No wounds, no lesions. No rash or pruritus. No unusual bruising. No change in hair or nails. Neurologic: No aphasia. No facial droop. No change in mentation. No head injury. No headache. No paralysis. No paresthesia. Psychiatric: No depression. No anxiety. No mood swings. Endocrine: Noted abnormal blood sugars. No weight change. PHYSICAL EXAMINATION Gen: This is a 70-year-old lresting in bedin ICU and appears to be in no acute distress. HEENT: Head is atraumatic, normocephalic. Pupils equal, round. Sclerae is anicteric. NECK: Supple. No JVD. No lymphadenopathy. No thyromegaly. LUNGS: His 3 chest tube at this point, decreased breath sound in the left side no rhonchi crackles or wheezes. HEART: Regular rate and rhythm. 2/6 systolic murmur. ABDOMEN: Soft. Bowel sounds are present. No masses. No tenderness. EXTREMITIES: No pedal edema. No calf tenderness. NEUROLOGICAL: Patient is awake, alert and oriented x3. Cranial nerves 2 through 12 are grossly intact. ASSESSMENT AND PLAN 1. Post aortic valve placement and left at 2 appendage, postop day #5. Continue current plan per cardiothoracic team. 2 type 1 diabetes uncontrolled with hyperglycemia. Patient has been resumed on insulin pump 3 hypertension. Continue hydralazine 50 g every 8 hour, Lopressor 50 mg 2times daily 4 hyperlipidemia: Continue patient on atorvastatin 40 mg daily. 5 history of asthma: Patient seen pulmonary on regular basis and was on Pulmicort and Ventolin inhaler with continue nebulizer management as well this point. Patient is still on Singulair 10 mg a day which will be resumed. 6 hypothyroidism: Has been on levothyroxine 150 g daily resume medication. 7 severe GERD/GI prophylaxis: Continue Protonix 8 thrombocytopenia, POA. 9. Acute kidney injury, resolved . Continue to monitor renal function, avoid hypotension and nephrotoxic agents. 10. Paroxysmal atrial fibrillation. Patient is on amiodarone 400 mg twice daily, Lopressor 50 mg twice daily. DVT prophylaxis: Continue patient on heparin 5000 units subcutaneous 3 times a day. 12. Exertional dyspnea, postoperatively, could be related to symptomatic anemia, iron infusion one-time dose of for illicit 125 mg 13. Edema, IV Lasix when necessary to restart 20 mg twice a day oral Lasix 14. Iron deficiency anemia, precipitous drop of hemoglobin iron infusion, for illicit, 125 mg, thereafter oral iron can be given, right before discharge DISCHARGE PLAN Home with [facility] Vital Signs Temp 98.1 F 04/04/21 04:00 Pulse 86 04/04/21 11:40 Resp 20 04/04/21 08:00 BP 152/68 04/04/21 08:00 Pulse Ox 96 04/04/21 08:00 Intake & Output 11/20/21 11/21/21 11/21/21 18:59 06:59 18:59 Intake Total 380 233 Output Total 793 084 5740 Balance -215 -386 -0803 Weight 99.1 kg Intake: Oral 380 233 Output: Urine 774 331 1873 Straight 650 Other: Voiding Method Urinal Urinal Urinal # Bowel Movements 1 ABP, PAP, CO, CI - Last Documented Arterial Blood Pressure 104/75 Pulmonary Artery Pressure 48/25 Cardiac Output 5.1 Cardiac Index 2.4 Current Medications Acetaminophen (Acetaminophen Tab 325 Mg Tab) 650 mg PO Q4HR PRN PRN Reason: Fever and/ or Pain Last Admin: 04/01/21 17:52 Dose: 650 mg Documented by: Albuterol/Ipratropium (Ipratropium-Albuterol 3 Ml Neb) 3 ml INHALATION RT-Q2H PRN PRN Reason: Shortness Of Breath Or Wheezing Albuterol/Ipratropium (Ipratropium-Albuterol 3 Ml Neb) 3 ml INHALATION RT-QID [facility] Last Admin: 04/04/21 11:27 Dose: 3 ml Documented by: Amiodarone HCl (Amiodarone 200 Mg Tab) 400 mg PO BID [facility] Last Admin: 04/04/21 08:22 Dose: 400 mg Documented by: Apixaban (Apixaban 5 Mg Tab) 5 mg PO BID [facility]; Protocol Last Admin: 04/04/21 10:23 Dose: 5 mg Documented by: Atorvastatin Calcium (Atorvastatin 40 Mg Tab) 40 mg PO HS [facility] Last Admin: 04/03/21 20:47 Dose: 40 mg Documented by: Benzocaine/Menthol (Benzocaine/Menthol Lozeng 1 Each Lozenge) 1 each MUCOUS MEM Q2H PRN PRN Reason: Sore Throat Last Admin: 03/30/21 17:38 Dose: 1 each Documented by: Bisacodyl (Bisacodyl 10 Mg Supp) 10 mg RECTAL DAILY PRN PRN Reason: Constipation Budesonide (Budesonide 1 Mg/2 Ml Nebu) 1 mg INHALATION RT-BID [facility] Last Admin: 04/04/21 07:30 Dose: 1 mg Documented by: Clopidogrel Bisulfate (Clopidogrel 75 Mg Tab) 75 mg PO DAILY [facility] Last Admin: 04/04/21 08:23 Dose: 75 mg Documented by: Furosemide (Furosemide 20 Mg Tab) 20 mg PO BID@0900,1600 [facility] Amiodarone HCl 150 mg/ (Dextrose/Water) 103 mls @ 618 mls/hr IV .Q10M PRN; Protocol PRN Reason: A.FIB/FLUTTER Last Admin: 03/31/21 16:40 Dose: 618 mls/hr Documented by: Amiodarone HCl 450 mg/ (Dextrose/Water) 250 mls @ 16.667 mls/hr IV .Q15H PRN; Protocol PRN Reason: A.FIB/FLUTTER Last Admin: 03/31/21 19:24 Dose: 0.5 mg/min, 16.667 mls/hr Documented by: Insulin Aspart (Insulin Aspart (Novolog) 100 Unit/Ml Vial) 0 unit SQ DAILY PRN PRN Reason: Insulin Pump Replacement Levothyroxine Sodium (Levothyroxine 75 Mcg Tab) 150 mcg PO 0630 [facility] Last Admin: 04/04/21 06:22 Dose: 150 mcg Documented by: Losartan Potassium (Losartan 25 Mg Tab) 75 mg PO DAILY [facility] Magnesium Hydroxide (Magnesium Hydroxide 2,400 Mg/10 Ml Cup) 2,400 mg PO BID PRN PRN Reason: Constipation Metoclopramide HCl (Metoclopramide 5 Mg/Ml 2 Ml Vial) 10 mg IVP Q4H PRN PRN Reason: Nausea And Vomiting Metoprolol Tartrate (Metoprolol Tartrate 25 Mg Tab) 75 mg PO BID [facility] Last Admin: 04/04/21 08:25 Dose: 75 mg Documented by: Miscellaneous Information (Magnesium Replacement Protocol 1 Each Misc) 1 each MISCELLANE DAILY PRN; Protocol PRN Reason: Per Protocol Miscellaneous Information (Potassium Replacement Protocol 1 Each Misc) 1 each MISCELLANE DAILY PRN; Protocol PRN Reason: Per Protocol Miscellaneous Information (Phosphorus Replacement Protoco 1 Each Misc) 1 each MISCELLANE DAILY PRN; Protocol PRN Reason: Per Protocol Miscellaneous Information (Insulin Pump Basal Rates 1 Each Misc) 1 each MISCELLANE Q6HR PRN; Protocol PRN Reason: Blood Sugar - High Miscellaneous Information (Insulin Pump Target Glucose 1 Each Misc) 1 each MISCELLANE ACHS PRN; Protocol PRN Reason: Blood Sugar - High Last Admin: 04/02/21 20:00 Dose: 1 each Documented by: Montelukast Sodium (Montelukast 10 Mg Tab) 10 mg PO HS [facility] Last Admin: 04/03/21 20:47 Dose: 10 mg Documented by: Ondansetron HCl (Ondansetron 4 Mg/2 Ml Vial) 4 mg IVP Q6HR PRN PRN Reason: Nausea And Vomiting Last Admin: 03/30/21 06:25 Dose: 4 mg Documented by: Pantoprazole Sodium (Pantoprazole 40 Mg Tablet) 40 mg PO AC-BRKFST [facility] Last Admin: 04/04/21 06:22 Dose: 40 mg Documented by: Senna/Docusate Sodium (Sennosides-Docusate Sodium 1 Each Tab) 2 each PO HS [facility] Last Admin: 04/03/21 20:46 Dose: 2 each Documented by: Sodium Chloride (Sodium Chloride 0.9% Flush 10 Ml Syringe) 10 ml IV BID [facility] Last Admin: 04/04/21 08:25 Dose: 10 ml Documented by: Tamsulosin HCl (Tamsulosin 0.4 Mg Cap.Er.24h) 0.4 mg PO PC-BRKFST [facility] Last Admin: 04/04/21 10:23 Dose: 0.4 mg Documented by: Laboratory Results WBC 12.0 k/uL (3.8-10.6) H 04/04/21 07:47 RBC 2.95 m/uL (4.30-5.90) L 04/04/21 07:47 Hgb 8.5 gm/dL (13.0-17.5) L 04/04/21 07:47 Hct 26.6 % (39.0-53.0) L 04/04/21 07:47 MCV 90.2 fL (80.0-100.0) 04/04/21 07:47 MCH 28.7 pg (25.0-35.0) 04/04/21 07:47 MCHC 31.8 g/dL (31.0-37.0) 04/04/21 07:47 RDW 14.4 % (11.5-15.5) 04/04/21 07:47 Plt Count 318 k/uL (150-450) 04/04/21 07:47 MPV 7.8 04/04/21 07:47 Neutrophils % 75 % 04/03/21 07:49 Lymphocytes % 10 % 04/03/21 07:49 Monocytes % 9 % 04/03/21 07:49 Eosinophils % 3 % 04/03/21 07:49 Basophils % 0 % 04/03/21 07:49 Neutrophils # 8.4 k/uL (1.3-7.7) H 04/03/21 07:49 Lymphocytes # 1.1 k/uL (1.0-4.8) 04/03/21 07:49 Monocytes # 1.1 k/uL (0-1.0) H 04/03/21 07:49 Eosinophils # 0.3 k/uL (0-0.7) 04/03/21 07:49 Basophils # 0.0 k/uL (0-0.2) 04/03/21 07:49 PT 11.8 sec (9.0-12.0) 03/29/21 12:30 INR 1.1 (<1.2) 03/29/21 12:30 APTT 26.3 sec (22.0-30.0) 03/29/21 12:30 Sample Site theresa 03/29/21 17:16 ABG pH 7.36 (7.35-7.45) 03/29/21 17:16 ABG pCO2 39 mmHg (35-45) 03/29/21 17:16 ABG pO2 141 mmHg (83-108) H 03/29/21 17:16 ABG HCO3 22 mmol/L (21-25) 03/29/21 17:16 ABG Total CO2 23 mmol/L (19-24) 03/29/21 17:16 ABG O2 Saturation 99.5 % (94-97) H 03/29/21 17:16 ABG Base Excess -3.6 mmol/L 03/29/21 17:16 Dane Test na 03/29/21 17:16 FiO2 50 % 03/29/21 17:16 Sodium 135 mmol/L (137-145) L 04/04/21 07:47 Potassium 5.1 mmol/L (3.5-5.1) 04/04/21 07:47 Chloride 107 mmol/L (98-107) 04/04/21 07:47 Carbon Dioxide 20 mmol/L (22-30) L 04/04/21 07:47 Anion Gap 8 mmol/L 04/04/21 07:47 BUN 33 mg/dL (9-20) H 04/04/21 07:47 Creatinine 1.08 mg/dL (0.66-1.25) 04/04/21 07:47 Est GFR (CKD-EPI)AfAm 81 (>60 ml/min/1.73 sqM) 04/04/21 07:47 Est GFR (CKD-EPI)NonAf 70 (>60 ml/min/1.73 sqM) 04/04/21 07:47 Glucose 142 mg/dL (74-99) H 04/04/21 07:47 POC Glucose (mg/dL) 243 mg/dL (75-99) H 04/04/21 11:40 POC Glu Coin Teller Imani Duarte 04/04/21 11:40 Calcium 8.7 mg/dL (8.4-10.2) 04/04/21 07:47 Ionized Calcium Thea 4.7 mg/dL (4.5-5.3) 03/31/21 04:35 Magnesium 2.3 mg/dL (1.6-2.3) 04/04/21 07:47 Iron 9 ug/dL (65-175) L 04/02/21 10:39 TIBC 218 ug/dL (228-460) L 04/02/21 10:39 % Saturation 4.21 (15.00-50.00) L 04/02/21 10:39 Transferrin 156.0 mg/dL (204.0-354.0) L 04/02/21 10:39 Total Bilirubin 0.5 mg/dL (0.2-1.3) 04/02/21 03:51 AST 33 U/L (17-59) 04/02/21 03:51 ALT 36 U/L (4-49) 04/02/21 03:51 Alkaline Phosphatase 59 U/L (38-126) 04/02/21 03:51 Total Protein 5.2 g/dL (6.3-8.2) L 04/02/21 03:51 Albumin 3.0 g/dL (3.5-5.0) L 04/02/21 03:51 Coronavirus (PCR) Not Detected (Not Detectd) 03/29/21 05:57 Blood Type B Positive 03/25/21 09:04 Blood Type Recheck B Pos 03/25/21 09:04 Bld Type Recheck Status No 03/25/21 09:04 Antibody Screen NEGATIVE 03/25/21 09:04 Crossmatch See Detail 03/25/21 09:04 Transfuse Platelets 03/29/21 03/25/21 09:04 Spec Expiration Date 03/31/21230303/25/21 09:04 Objective - Vital Signs Vital signs: Vital Signs Temp 98.1 F 04/04/21 04:00 Pulse 86 04/04/21 11:40 Resp 20 04/04/21 08:00 BP 152/68 04/04/21 08:00 Pulse Ox 96 04/04/21 08:00 Intake & Output 04/03/21 04/04/21 04/04/21 18:59 06:59 18:59 Intake Total 380 233 Output Total 937 685 2076 Balance -370 950 -1265 Weight 99.1 kg Intake: Oral 380 233 Output: Urine 330 144 5518 Straight 650 Other: Voiding Method Urinal Urinal Urinal # Bowel Movements 1 ABP, PAP, CO, CI - Last Documented Arterial Blood Pressure 104/75 Pulmonary Artery Pressure 48/25 Cardiac Output 5.1 Cardiac Index 2.4 - Labs CBC & Chem 7: 04/07/21 06:02 04/07/21 06:02 Labs: Abnormal Lab Results - Last 24 Hours (Table) 04/03/21 04/03/21 04/04/21 Range/Units 16:42 19:09 01:18 WBC (3.8-10.6) k/uL RBC (4.30-5.90) m/uL Hgb (13.0-17.5) gm/dL Hct (39.0-53.0) % Sodium (137-145) mmol/L Carbon Dioxide (22-30) mmol/L BUN (9-20) mg/dL Glucose (74-99) mg/dL POC Glucose (mg/dL) 125 H 136 H 157 H (75-99) mg/dL 04/04/21 04/04/21 04/04/21 Range/Units 06:27 07:47 07:47 WBC 12.0 H (3.8-10.6) k/uL RBC 2.95 L (4.30-5.90) m/uL Hgb 8.5 L (13.0-17.5) gm/dL Hct 26.6 L (39.0-53.0) % Sodium 135 L (137-145) mmol/L Carbon Dioxide 20 L (22-30) mmol/L BUN 33 H (9-20) mg/dL Glucose 142 H (74-99) mg/dL POC Glucose (mg/dL) 147 H (75-99) mg/dL 04/04/21 Range/Units 11:40 WBC (3.8-10.6) k/uL RBC (4.30-5.90) m/uL Hgb (13.0-17.5) gm/dL Hct (39.0-53.0) % Sodium (137-145) mmol/L Carbon Dioxide (22-30) mmol/L BUN (9-20) mg/dL Glucose (74-99) mg/dL POC Glucose (mg/dL) 243 H (75-99) mg/dL
[2021-04-04] MEDS: FUROSEMIDE 20 MG TAB PO SCH (14:57)
[2021-04-04] MEDS: LOSARTAN 25 MG TAB PO SCH (14:57)
[2021-04-04 16:50] LABS: Glucose,Whole Blood 256 mg/dL (75-99)
[2021-04-04 19:56] LABS: Glucose,Whole Blood 138 mg/dL (75-99)
[2021-04-04] MEDS: SENNOSIDES-DOCUSATE SODIUM 1 EACH TAB PO SCH (21:14)
[2021-04-04] MEDS: MONTELUKAST 10 MG TAB PO SCH (21:14)
[2021-04-04] MEDS: ATORVASTATIN 40 MG TAB PO SCH (21:14)
[2021-04-05] MEDS: ACETAMINOPHEN TAB 325 MG TAB PO PRN (00:28)
[2021-04-05 02:00] LABS: Glucose,Whole Blood 168 mg/dL (75-99)
[2021-04-05 06:03] LABS: Glucose,Whole Blood 186 mg/dL (75-99)
[2021-04-05] MEDS: PANTOPRAZOLE 40 MG TABLET PO SCH (06:41)
[2021-04-05] MEDS: LEVOTHYROXINE 75 MCG TAB PO SCH (06:41)
[2021-04-05] MEDS: BUDESONIDE 1 MG/2 ML NEBU INHALATION SCH ×2 (07:56→21:25)
[2021-04-05] MEDS: IPRATROPIUM-ALBUTEROL 3 ML NEB INHALATION SCH ×4 (07:56→21:25)
[2021-04-05] MEDS: AMIODARONE 200 MG TAB PO SCH ×2 (08:07→20:14)
[2021-04-05] MEDS: TAMSULOSIN 0.4 MG CAP.ER.24H PO SCH ×2 (08:07→16:58)
[2021-04-05] MEDS: LOSARTAN 25 MG TAB PO SCH (08:08)
[2021-04-05] MEDS: CLOPIDOGREL 75 MG TAB PO SCH (08:08)
[2021-04-05] MEDS: APIXABAN 5 MG TAB PO SCH ×2 (08:08→20:13)
[2021-04-05] MEDS: METOPROLOL TARTRATE 25 MG TAB PO SCH ×2 (08:08→20:14)
[2021-04-05] MEDS: FUROSEMIDE 20 MG TAB PO SCH ×2 (08:08→16:58)
[2021-04-05 08:57] LABS: HGB 8.2 gm/dL (13.0-17.5); Hypochromasia Slight; MCH 29.6 pg (25.0-35.0); MCHC 32.9 g/dL (31.0-37.0); Platelet Count 354 k/uL (150-450); RBC 2.78 m/uL (4.30-5.90); RDW 14.6 % (11.5-15.5); WBC 10.1 k/uL (3.8-10.6)
[2021-04-05 09:13] LABS: Calcium 8.3 mg/dL (8.4-10.2); Magnesium 2.1 mg/dL (1.6-2.3); Potassium 4.6 mmol/L (3.5-5.1)
--- NOTE | 2021-04-05 09:48 | XR ---
EXAMINATION TYPE: XR chest 1V portable DATE OF EXAM: 04/05/2021 COMPARISON: Chest x-ray 04/04/2021 HISTORY: Status post aortic valve replacement TECHNIQUE: Single frontal view of the chest is obtained. FINDINGS: Patient is post median sternotomy and left atrial appendage clip placement, cardiac medias tinal silhouette is stable. Basilar density is present, there is blunting the left costophrenic angle similar to prior exam. IMPRESSION: Probable left lower lobe atelectasis and associated effusion.
--- NOTE | 2021-04-05 11:51 | P.PN ---
Subjective This is a 70 year old female with a past medical history of aortic regurgitation, hypertension, hyperlipidemia, Type 1 insulin-dependent diabetes, asthma, hypothyroidism, GERD and family history of coronary artery disease. She follows with Dr. Ames. She underwent aortic valve replacement aortic valve replacement using a 25 mm Inspiris pericardial bioprosthesis, exclusion of the left atrial appendage intraoperative on 03/29/21. She did have postoperative atrial fibrillation. Patient seen and examined at bedside. He is sitting up to the bedside chair, is awake, alert and oriented 3 and is in no acute apparent distress. He denies any complaints of shortness breath or chest pain. Overall he is feeling well and states he may be discharged today. Telemetry reviewed, patient maintaining sinus mechanism heart rates in the 60s80s. He did have an episode of atrial fibrillation with RVR HR 130s. His vital signs are stable. He is on room air. He is using his incentive spirometry with encouragement. He's currently maintained on amiodarone 400 mg twice a day, Eliquis 5 mg twice a day, atorvastatin 40 mg nightly, Plavix 75 mg daily, losartan 50 mg daily, metoprolol tartrate 75 mg twice a day Laboratory results this morning revealed WBC 10 point hemoglobin 8.2, platelets 14.6, sodium 134, potassium 4.6, BUN 36, serum creatinine 1.28, magnesium 2.1 GENERAL: Well-appearing, well-nourished and in no acute distress. NECK: Supple without JVD or thyromegaly. LUNGS: Breath sounds clear to auscultation bilaterally. Respiration equal and unlabored. No wheezes, rales or rhonchi. HEART: Regular rate and rhythm without. Systolic murmur at base. S1 and S2 heard. EXTREMITIES: Normal range of motion, no edema. No clubbing or cyanosis. P eripheral pulses intact. ASSESSMENT Aortic regurgitation status post aortic valve replacement History of hypertension History of hyperlipidemia Type I Diabetes with insulin pump Asthma Hypothyroidismm GERD Acute kidney injury, resolving Postoperative paroxysmal atrial fibrillation, currently on Eliquis PLAN Continue current medical therapy Decrease amiodarone to 200mg BID Post operative management per CT Surgery Continue cardiac telemetry while inpatient Increase activity, ambulate as tolerated. Encourage incentive spirometry On discharge, patient to follow up with Dr. Ames Objective - Vital Signs Vital signs: Vital Signs Temp 98.1 F 04/05/21 07:40 Pulse 88 04/05/21 08:04 Resp 18 04/05/21 07:42 BP 128/64 04/05/21 07:40 Pulse Ox 97 04/05/21 07:40 Intake & Output 04/04/21 04/05/21 04/05/21 18:59 06:59 18:59 Intake Total 233 118 120 Output Total 2250 650 Balance -2016 120 Weight 103 kg Intake: Oral 233 118 120 Output: Urine 2250 650 Straight 750 550 Other: Voiding Method Urinal Indwelling Catheter Indwelling Catheter # Voids 1 0 # Bowel Movements 0 ABP, PAP, CO, CI - Last Documented Arterial Blood Pressure 104/75 Pulmonary Artery Pressure 48/25 Cardiac Output 5.1 Cardiac Index 2.4 - Labs CBC & Chem 7: 04/05/21 06:53 04/05/21 06:53 Labs: Abnormal Lab Results - Last 24 Hours (Table) 04/04/21 04/04/21 04/04/21 Range/Units 11:40 16:49 19:54 RBC (4.30-5.90) m/uL Hgb (13.0-17.5) gm/dL Hct (39.0-53.0) % Sodium (137-145) mmol/L BUN (9-20) mg/dL Creatinine (0.66-1.25) mg/dL Glucose (74-99) mg/dL POC Glucose (mg/dL) 243 H 256 H 138 H (75-99) mg/dL Calcium (8.4-10.2) mg/dL 04/05/21 04/05/21 04/05/21 Range/Units 01:58 05:54 06:53 RBC 2.78 L (4.30-5.90) m/uL Hgb 8.2 L (13.0-17.5) gm/dL Hct 25.0 L (39.0-53.0) % Sodium (137-145) mmol/L BUN (9-20) mg/dL Creatinine (0.66-1.25) mg/dL Glucose (74-99) mg/dL POC Glucose (mg/dL) 168 H 186 H (75-99) mg/dL Calcium (8.4-10.2) mg/dL 04/05/21 Range/Units 06:53 RBC (4.30-5.90) m/uL Hgb (13.0-17.5) gm/dL Hct (39.0-53.0) % Sodium 134 L (137-145) mmol/L BUN 36 H (9-20) mg/dL Creatinine 1.28 H (0.66-1.25) mg/dL Glucose 152 H (74-99) mg/dL POC Glucose (mg/dL) (75-99) mg/dL Calcium 8.3 L (8.4-10.2) mg/dL
[2021-04-05 11:57] LABS: Glucose,Whole Blood 166 mg/dL (75-99)
--- NOTE | 2021-04-05 12:06 | P.PN ---
Subjective Patient is seen in follow-up for acute kidney injury. Renal function slightly worse from diuresis. Now on oral Lasix. Oropeza catheter had to be reinserted due to urinary retention. Nonoliguric. No vomiting or diarrhea. Vital signs are stable. General: The patient appeared well nourished and normally developed. HEENT: Head exam is unremarkable. LUNGS: Breath sounds decreased. HEART: Rate and Rhythm are regular. ABDOMEN: Soft, no distention. EXTREMITITES: No edema. Objective - Vital Signs Vital signs: Vital Signs Temp 98.3 F 04/05/21 11:15 Pulse 71 04/05/21 11:15 Resp 16 04/05/21 11:15 BP 105/58 04/05/21 11:15 Pulse Ox 94 L 04/05/21 11:15 Intake & Output 04/04/21 04/05/21 04/05/21 18:59 06:59 18:59 Intake Total 233 118 120 Output Total 2250 650 Balance -2016 120 Weight 103 kg Intake: Oral 233 118 120 Output: Urine 2250 650 Straight 750 550 Other: Voiding Method Urinal Indwelling Catheter Indwelling Catheter # Voids 1 0 # Bowel Movements 0 ABP, PAP, CO, CI - Last Documented Arterial Blood Pressure 104/75 Pulmonary Artery Pressure 48/25 Cardiac Output 5.1 Cardiac Index 2.4 - Labs CBC & Chem 7: 04/05/21 06:53 04/05/21 06:53 Labs: Abnormal Lab Results - Last 24 Hours (Table) 04/04/21 04/04/21 04/05/21 Range/Units 16:49 19:54 01:58 RBC (4.30-5.90) m/uL Hgb (13.0-17.5) gm/dL Hct (39.0-53.0) % Sodium (137-145) mmol/L BUN (9-20) mg/dL Creatinine (0.66-1.25) mg/dL Glucose (74-99) mg/dL POC Glucose (mg/dL) 256 H 138 H 168 H (75-99) mg/dL Calcium (8.4-10.2) mg/dL 04/05/21 04/05/21 04/05/21 Range/Units 05:54 06:53 06:53 RBC 2.78 L (4.30-5.90) m/uL Hgb 8.2 L (13.0-17.5) gm/dL Hct 25.0 L (39.0-53.0) % Sodium 134 L (137-145) mmol/L BUN 36 H (9-20) mg/dL Creatinine 1.28 H (0.66-1.25) mg/dL Glucose 152 H (74-99) mg/dL POC Glucose (mg/dL) 186 H (75-99) mg/dL Calcium 8.3 L (8.4-10.2) mg/dL 04/05/21 Range/Units 11:54 RBC (4.30-5.90) m/uL Hgb (13.0-17.5) gm/dL Hct (39.0-53.0) % Sodium (137-145) mmol/L BUN (9-20) mg/dL Creatinine (0.66-1.25) mg/dL Glucose (74-99) mg/dL POC Glucose (mg/dL) 166 H (75-99) mg/dL Calcium (8.4-10.2) mg/dL Assessment and Plan Plan: Assessment: 1. Acute kidney injury mostly prerenal secondary to cardiorenal syndrome. Creatinine 1.28 today. 2. Hypervolemic hyponatremia. Stable. 3. Urinary retention status post Oropeza catheter placement. On Flomax. 4. Status post aortic valve replacement. 5. Fluid overload. Improved with diuresis. 6. A. fib. Plan: Maintain Lasix. Avoid nephrotoxins. Continue to monitor renal function and urine output.
--- NOTE | 2021-04-05 15:07 | P.PN ---
Subjective Progress Note Date: 04/05/21 HISTORY OF PRESENT ILLNESS [age]-year-old male one of Dr. Marcano patient with past medical history of type 1 diabetes on insulin pump who had history of asthma seen Dr. Harry chapa on regular basis, known to have history of hypertension hyperlipidemia and hypothyroidism who was hospitalized in February 07 to 02/10/2021 for worsening dyspnea and shortness of breath ended up going for further workup including heart catheter and transthoracic echocardiogram and process is Optigene echocardiogram findings were consistent with severe aortic stenosis with no major coronary artery involvement. Patient ended up seeing cardiothoracic surgeon Dr. Torres and plan to do an elective aortic valve placement which was done successfully, patient was on mechanical ventilation for sure. Of time and was weaned off shortly after he seen pulmonary ready. His blood sugar has been better controlled currently with insulin drip which will be continued this point until patient is able to take oral intake with switch him to insulin pump. Patient otherwise stable hemodynamically doing well he is maintaining his on airway on the hardly any vasopressor. 03/30: Patient is seen in the intensive care unit. He is sitting up in a recliner appears to be comfortable. He is currently on insulin drip which we will plan to transition over to Levemir tonight and in about one day or so, patient will be transitioned to his insulin pump. Blood sugars are running 121- 187. Right cordis and chest tubes remains in place. Patient does have chest discomfort, no complaints of shortness of breath. monitor technician sinus rhythm with occasional PVCs. He has not required vasopressors. Patient has been afebrile. WBC 16.2, hemoglobin 10.1, platelet count 149. Sodium 133, potassium 5.1, chloride 109, CO2 19, BUN 24 and creatinine 0.82. Magnesium 2.4. Repeat chest x-ray reveals probable basilar atelectasis. Patient is reaching 1000 on incentive spirometry. 03/31: Remains in intensive care unit, he is up sitting in a chair and recliner and appears to be quite comfortable. Patient overall looks much improved from yesterday. His chest tubes are out. He is working today with physical therapy. He ate breakfast this morning. He denies any nausea vomiting or diarrhea. Chest discomfort is controlled. He denies any fever or chills, denies cough. He has been afebrile, heart rate in the 80s and 90s, blood pressure 111/57, pulse ox 95% on room air. Repeat blood work reveals WBC 12.9, hemoglobin 8.8, platelet count 117. Sodium 130, potassium 5.1, chloride 105, CO2 19, BUN 40 creatinine 2.34. Blood sugars are running 128 274. Patient did receive a dose of Levemir last evening but unclear why insulin drip was not discontinued. We will increase Levemir to 20 units and switch patient over to scale insulin with plan to transition him to insulin pump tomorrow. 04/01: Patient is found sitting up in recliner and appears to be comfortable. Patient's blood sugars have been uncontrolled starting yesterday at supper of 260, bedtime 394, 7 AM 310. The following changes have been made. Capillary blood glucose every 2 hours, insulin scale every 2 hours, additional 10 units no w, increase NovoLog 6 units with meals, Levemir increased to 15 units twice daily. WBC is 10.7, hemoglobin 8.2, platelet count 110. BUN 50 and creatinine 1.48. Sodium 127. Patient is on amiodarone drip. Repeat chest x-ray reveals bilateral infiltrate and pleural effusion greater on the left. 04/02: Patient remains in intensive care unit. He has been transitioned over to his insulin pump and blood sugars are improved but actually hypo-glycemic with blood sugar of 49 this morning. He states his pain is controlled. Difficulty in breathing is stable. Patient has been transitioned to oral amiodarone and metoprolol for atrial fibrillation. He is afebrile, heart rate 60, blood pressure 116/51, pulse ox 90% on room air. Repeat blood work reveals WBC 14.2, hemoglobin 8.6, platelet count 193. Sodium 134, potassium 4.5, chloride 108, CO2 20, BUN 40. Creatinine 1.2. Liver function tests normal. Discharge plan is to return home with [facility]. 04/03: Patient admitted to the medical floor, has shortness of breath on exertion, no chest pain no palpitations, patient is anemic hemoglobin of 8.5, WBC count 11.2, creatinine of 1.14, patient denies any urinary retention at this time, has some lower extremity edema, blood sugars are between 110-251, vitals are stable, heart rate 73, pulse ox 96% room air, blood pressure 130/62 patient would receive IV for illicit, thereafter oral iron supplementation can be provided. For symptomatic anemia patient will need when necessary Lasix, as for edema, which could be given in a.m. Patient was given furosemide 20 mg 1 dose today continue PT OT 12/02: Patient is to doing better, has diuresed, with Lasix 40 IV, required strai ght cath last night, times one, Flomax initiated. Patient does not have any urine pressure at this time, no dysuria, we'll going to transition him to oral Lasix 20 mg twice a day as per home. completed one-time dose of Ferrlecit IV Vital signs stable, anticipate home discharge with therapy in the morning 12/03: Repeat chest x-ray reveals probable left lower lobe atelectasis and associated effusion. Patient had a Oropeza catheter reinserted for urinary retention. He has had some increase in creatinine to 1.28. Nephrology is recommending maintaining Lasix and avoid nephrotoxins. Monitor renal function and urine output. Cardiology is decreased amiodarone to 200 mg twice daily and patient to follow-up with Dr. Ames as an outpatient. He has been afebrile, heart rate 80, blood pressure 105/58, pulse ox 94% on room air. Blood sugars are currently running between 130 886. Patient is on his insulin pump. Discharge plan is to return home with home care. Anticipate discharge the next 24 hours. REVIEW OF SYSTEMS Constitutional: No fever, no chills, no night sweats. No weight change. No weakness, fatigue or lethargy. No daytime sleepiness. EENT: No headache. No blurred vision or double vision, no loss of vision. No loss of Hearing, no ringing in the ears, no dizziness. No nasal drainage or congestion. No epistaxis. No sore throat. Lungs: No shortness of breath, cough, no sputum production. No wheezing. Cardiovascular: Chest discomfort secondary to placement and left atrial appendage so far no complication no arrhythmia, no lower extremity edema. No palpitations. Abdominal: No abdominal pain. No nausea, vomiting. No diarrhea. No constipation. No bloody or tarry stools.. No loss of appetite. Genitourinary: No dysuria, increased frequency, urgency. No urinary retention. Musculoskeletal: No myalgias. No muscle weakness, no gait dysfunction, no frequent falls. No back pain. No neck pain. Integumentary: No wounds, no lesions. No rash or pruritus. No unusual bruising. No change in hair or nails. Neurologic: No aphasia. No facial droop. No change in mentation. No head injury. No headache. No paralysis. No paresthesia. Psychiatric: No depression. No anxiety. No mood swings. Endocrine: Noted abnormal blood sugars, improved. No weight change. PHYSICAL EXAMINATION Gen: This is a 70-year-old resting in recliner and appears to be in no acute distress. HEENT: Head is atraumatic, normocephalic. Pupils equal, round. Sclerae is anicteric. NECK: Supple. No JVD. No lymphadenopathy. No thyromegaly. LUNGS: His 3 chest tube at this point, decreased breath sound in the left side no rhonchi crackles or wheezes. HEART: Regular rate and rhythm. 2/6 systolic murmur. ABDOMEN: Soft. Bowel sounds are present. No masses. No tenderness. Oropeza catheter draining clear casa urine. EXTREMITIES: No pedal edema. No calf tenderness. NEUROLOGICAL: Patient is awake, alert and oriented x3. Cranial nerves 2 through 12 are grossly intact. ASSESSMENT AND PLAN 1. Status post aortic valve replacement and excision of left atrial appendage, 03/29. Continue current plan per cardiothoracic team. Patient is currently on Lipitor 40 mg daily, Plavix 75 mg daily, Lasix 20 mg twice daily, losartan 50 mg daily, Lopressor 75 mg twice daily. 2 type 1 diabetes uncontrolled with hyperglycemia. Patient has been resumed on insulin pump, blood sugars are controlled 3 hypertension. Continue losartan 50 mg daily, Lopressor 75 mg 2times daily 4 hyperlipidemia: Continue patient on atorvastatin 40 mg daily. 5 history of asthma: Patient seen pulmonary on regular basis and was on Pulmicort and Ventolin inhaler with continue nebulizer management as well this point. Patient is still on Singulair 10 mg a day which will be resumed. 6 hypothyroidism: Has been on levothyroxine 150 g daily resume medication. 7 severe GERD/GI prophylaxis: Continue Protonix 8 thrombocytopenia, POA. 9. Acute kidney injury. Continue to monitor renal function, avoid hypotension and nephrotoxic agents. Nephrology consult appreciated. 10. Paroxysmal atrial fibrillation. Patient is on amiodarone decreased to 200 mg twice daily, Lopressor 75 mg twice daily. 11. DVT prophylaxis: Continue patient on heparin 5000 units subcutaneous 3 times a day. 12. Exertional dyspnea, postoperatively, could be related to symptomatic anemia, iron infusion one-time dose of for illicit 125 mg 13. Edema, IV Lasix when necessary to restart 20 mg twice a day oral Lasix 14. Iron deficiency anemia, precipitous drop of hemoglobin, status post iron infusion. 15. Urinary retention requiring placement of Oropeza catheter. DISCHARGE PLAN Home with [facility] Monday Impression and plan of care have been directed as dictated by the signing physician. Maria R Topete nurse practitioner acting as scribe for signing physician. Objective - Vital Signs Vital signs: Vital Signs Temp 98.1 F 04/05/21 07:40 Pulse 88 04/05/21 08:04 Resp 18 04/05/21 07:42 BP 128/64 04/05/21 07:40 Pulse Ox 97 04/05/21 07:40 Intake & Output 04/04/21 04/05/21 04/05/21 18:59 06:59 18:59 Intake Total 233 118 120 Output Total 2250 650 Balance -2016 120 Weight 103 kg Intake: Oral 233 118 120 Output: Urine 2250 650 Straight 750 550 Other: Voiding Method Urinal Indwelling Catheter Indwelling Catheter # Voids 1 0 # Bowel Movements 0 ABP, PAP, CO, CI - Last Documented Arterial Blood Pressure 104/75 Pulmonary Artery Pressure 48/25 Cardiac Output 5.1 Cardiac Index 2.4 - Labs CBC & Chem 7: 04/05/21 06:53 04/05/21 06:53 Labs: Abnormal Lab Results - Last 24 Hours (Table) 04/04/21 04/04/21 04/04/21 Range/Units 11:40 16:49 19:54 RBC (4.30-5.90) m/uL Hgb (13.0-17.5) gm/dL Hct (39.0-53.0) % Sodium (137-145) mmol/L BUN (9-20) mg/dL Creatinine (0.66-1.25) mg/dL Glucose (74-99) mg/dL POC Glucose (mg/dL) 243 H 256 H 138 H (75-99) mg/dL Calcium (8.4-10.2) mg/dL 04/05/21 04/05/21 04/05/21 Range/Units 01:58 05:54 06:53 RBC 2.78 L (4.30-5.90) m/uL Hgb 8.2 L (13.0-17.5) gm/dL Hct 25.0 L (39.0-53.0) % Sodium (137-145) mmol/L BUN (9-20) mg/dL Creatinine (0.66-1.25) mg/dL Glucose (74-99) mg/dL POC Glucose (mg/dL) 168 H 186 H (75-99) mg/dL Calcium (8.4-10.2) mg/dL 04/05/21 Range/Units 06:53 RBC (4.30-5.90) m/uL Hgb (13.0-17.5) gm/dL Hct (39.0-53.0) % Sodium 134 L (137-145) mmol/L BUN 36 H (9-20) mg/dL Creatinine 1.28 H (0.66-1.25) mg/dL Glucose 152 H (74-99) mg/dL POC Glucose (mg/dL) (75-99) mg/dL Calcium 8.3 L (8.4-10.2) mg/dL
[2021-04-05] MEDS: LOSARTAN 50 MG TAB PO SCH (16:55)
[2021-04-05 16:58] LABS: Glucose,Whole Blood 222 mg/dL (75-99)
--- NOTE | 2021-04-05 17:26 | P.PN ---
Subjective Progress Note Date: 04/05/21 Principal diagnosis: Aortic valve disorder with predominant aortic valve regurgitation, evidence of bicuspid aortic valve with incomplete fusion of right and non-coronary cusps. P ast medical history significant for hypertension, hyperlipidemia, Type 1 insulin-dependent diabetes, asthma with recent exacerbation treated with steroids, hypothyroid, history of a broken pelvis and drop foot to his right foot from 2010, history of urinary retention in 2010 requiring discharge home with Oropeza catheter, GERD and family history of premature coronary artery disease with father from myocardial infarction at 56 years old. Preoperative nasal screen positive for MSSA POD #7 aortic valve replacement using a 25 mm Inspiris pericardial bioprosthesis, exclusion of the left atrial appendage using a 35 mm AtriClip, intraoperative transesophageal echocardiogram and epi-aortic scanning Postoperative acute blood loss anemia and thrombocytopenia, expected given hemodilution, cardiopulmonary bypass pump Acute kidney injury, unexpected Postoperative atrial fibrillation, known common occurrence after open heart surgery The patient was seen in follow-up today 04/05/2021 at his bedside on the cardiac stepdown unit. Currently sitting up to the bedside chair, is awake, alert and oriented 3 and is in no acute apparent distress. He denies any complaints of shortness breath or pain at this time. The patient has had complaints of urinary retention throughout the night requiring placement of Oropeza catheter. The patient does have a history of urinary retention in 2010 after a pelvis fracture requiring him to be discharged home at that time with a Oropeza catheter in place. He was started on Flomax 0.4 mg by mouth daily yesterday. He reports he has been up ambulating in the cardiac stepdown unit hallway with standby assistance from nursing and physical therapy staff. Tolerating well. He is still having some episodes of atrial fibrillation throughout the night, remote telemetry currently showing normal sinus rhythm heart rate 78 BPM. He was started on Eliquis 5 mg by mouth twice a day yesterday for anticoagulation. Oxygen saturations are 96% on room air and he is achieving 1500 mL with encouragement on his incentive spirometry. He remains afebrile and the last 24 hours. Laboratory results this morning are showing WBC count 10.1, hemoglobin 8.2, hematocrit 25.0, platelets 354, sodium 134, BUN 36, creatinine 1.28 and magnesium 2.1. Objective - Vital Signs Vital signs: Vital Signs Temp 98.1 F 04/05/21 07:40 Pulse 88 04/05/21 08:04 Resp 18 04/05/21 07:42 BP 128/64 04/05/21 07:40 Pulse Ox 97 04/05/21 07:40 Intake & Output 04/04/21 04/05/21 04/05/21 18:59 06:59 18:59 Intake Total 233 118 120 Output Total 2250 650 Balance -2016 120 Weight 103 kg Intake: Oral 233 118 120 Output: Urine 2250 650 Straight 750 550 Other: Voiding Method Urinal Indwelling Catheter Indwelling Catheter # Voids 1 0 # Bowel Movements 0 ABP, PAP, CO, CI - Last Documented Arterial Blood Pressure 104/75 Pulmonary Artery Pressure 48/25 Cardiac Output 5.1 Cardiac Index 2.4 - Exam CONSTITUTIONAL: Sitting up to the bedside chair on the cardiac stepdown unit, appears comfortable, cooperative, no apparent acute distress. HEENT: Neck is supple, no JVD, no lymphadenopathy. RESPIRATORY: Lungs sounds essentially clear throughout, diminished to his bilateral bases. Respirations are symmetrical and nonlabored. Currently on room air with oxygen saturations 96%. Able to achieve 1500 mL on his incentive spirometry. Strong cough. CARDIOVASCULAR: Regular rhythm and rate. S1 and S2 present, negative for S3, gallop or murmur. Sternum is stable. Palpable peripheral pulses bilaterally, +1 edema to his bilateral lower extremities. No calf pain or tenderness noted. Heart hugger in place with patient demonstrating appropriate use. Knee-high BUSHRA hose and sequential compression devices in place to his bilateral lower extremities. Remote telemetry showing normal sinus rhythm heart rate 78 BPM. GASTROINTESTINAL: Abdomen soft, nontender, nondistended. Active bowel sounds present 4 quadrants. Tolerating diet. Passing flatus. No guarding or rigidity. GENITOURINARY: Oropeza catheter in place with clear yellow urine. Output 1300 mL in the last 8 hours INTEGUMENTARY: Skin is warm and dry with no evidence of clubbing or cyanosis. Midline sternal incision clean dry and well approximated, covered with dry intact dressing. MUSKULOSKELETAL: Able to move all extremities, strength equal bilaterally, generalized weakness. PSYCHIATRIC: Alert and oriented to person place and time, appropriate affect, intact judgment and insight. - Allied health notes Allied health notes reviewed: nursing - Labs CBC & Chem 7: 04/05/21 06:53 11/22/21 06:53 Labs: Abnormal Lab Results - Last 24 Hours (Table) 04/04/21 04/04/21 04/04/21 Range/Units 11:40 16:49 19:54 RBC (4.30-5.90) m/uL Hgb (13.0-17.5) gm/dL Hct (39.0-53.0) % Sodium (137-145) mmol/L BUN (9-20) mg/dL Creatinine (0.66-1.25) mg/dL Glucose (74-99) mg/dL POC Glucose (mg/dL) 243 H 256 H 138 H (75-99) mg/dL Calcium (8.4-10.2) mg/dL 04/05/21 04/05/21 04/05/21 Range/Units 01:58 05:54 06:53 RBC 2.78 L (4.30-5.90) m/uL Hgb 8.2 L (13.0-17.5) gm/dL Hct 25.0 L (39.0-53.0) % Sodium (137-145) mmol/L BUN (9-20) mg/dL Creatinine (0.66-1.25) mg/dL Glucose (74-99) mg/dL POC Glucose (mg/dL) 168 H 186 H (75-99) mg/dL Calcium (8.4-10.2) mg/dL 04/05/21 Range/Units 06:53 RBC (4.30-5.90) m/uL Hgb (13.0-17.5) gm/dL Hct (39.0-53.0) % Sodium 134 L (137-145) mmol/L BUN 36 H (9-20) mg/dL Creatinine 1.28 H (0.66-1.25) mg/dL Glucose 152 H (74-99) mg/dL POC Glucose (mg/dL) (75-99) mg/dL Calcium 8.3 L (8.4-10.2) mg/dL - Imaging and Cardiology Chest x-ray: report reviewed, image reviewed Assessment and Plan Assessment: 1. Aortic valve disorder with predominant aortic valve regurgitation, evidence of bicuspid aortic valve with incomplete fusion of right and non-coronary cusps, status post aortic valve replacement 2. History of hypertension 3. History of hyperlipidemia, treated, cholesterol 161, LDL 73, triglycerides 56 4. Insulin-dependent diabetes, type I with insulin pump, preoperative hemoglobin A1c 7.6% 5. Asthma with recent exacerbation treated with steroids and antibiotic, moderate restrictive disease with preoperative FEV1 59% of predicted 6. Hypothyroid 7. GERD 8. Family history of premature coronary artery disease with father from myocardial infarction at 56 years old 9. Vaccinated with Moderna, last dose June 2020 10. Preoperative nasal screen positive for MSSA, treated 11. Postoperative acute blood loss anemia and thrombocytopenia, expected 12. Acute kidney injury, resolving 13. History of urinary retention in 2010 requiring discharge home with Oropeza catheter after a fractured pelvis injury 14. History of drop with to his right foot, status post his pelvic fracture in 2010 15. Postoperative atrial fibrillation, known common occurrence after open heart surgery, status post left atrial appendage ligation Plan: 1. Continue statin, Plavix, beta caroline. Will increase metoprolol tartrate as tolerated. 2. Continue amiodarone 400 mg by mouth twice a day. We will titrate the amiodarone tomorrow to 200 mg by mouth twice a day. 3. Encourage incentive spirometry use 10 times every hour while awake. Bronchodilators, inhaled steroids per pulmonology 4. Increase activity, ambulate as tolerated. PT/OT/cardiac rehab following. 5. Will monitor daily labs and chest x-rays. Electrolyte replacement per protocol. 6. GI/DVT prophylaxis. 7. Pain control with current medication regimen. 8. Insulin management per primary care service. Patient needs tight blood sugar control to promote healing and prevent infection. The patient has transitioned back to his home insulin pump. 9. Keep Oropeza catheter in place due to urinary retention. Consult urology. 10. Strict accurate intake and output. Daily weights. 11. Continue Cozaar 75 mg by mouth daily at noon for afterload reduction. 12. Lasix management per nephrology's recommendations. BUN and creatinine trending up. 13. Continue Eliquis 5 mg by mouth twice a day due to his atrial fibrillation for anticoagulation. 14. Discharge planning is in place, anticipate discharge home within the next 24 hours 15. The patient's did bring his brace for his right foot, which the patient reports did give more stability with ambulating. 16. More recommendations to follow based on patient's clinical course. Time with Patient: Greater than 30
[2021-04-05] MEDS: MONTELUKAST 10 MG TAB PO SCH (20:13)
[2021-04-05] MEDS: ATORVASTATIN 40 MG TAB PO SCH (20:14)
[2021-04-05] MEDS: SENNOSIDES-DOCUSATE SODIUM 1 EACH TAB PO SCH (20:14)
[2021-04-05 20:19] LABS: Glucose,Whole Blood 258 mg/dL (75-99)
[2021-04-05] MEDS: INSULIN PUMP TARGET GLUCOSE 1 EACH MISC MISCELLANE PRN (20:25)
[2021-04-06 02:02] LABS: Glucose,Whole Blood 150 mg/dL (75-99)
[2021-04-06] MEDS: ACETAMINOPHEN TAB 325 MG TAB PO PRN (04:30)
[2021-04-06 05:52] LABS: Glucose,Whole Blood 233 mg/dL (75-99)
[2021-04-06] MEDS: PANTOPRAZOLE 40 MG TABLET PO SCH (06:40)
[2021-04-06] MEDS: LEVOTHYROXINE 75 MCG TAB PO SCH (06:40)
[2021-04-06] MEDS: INSULIN PUMP TARGET GLUCOSE 1 EACH MISC MISCELLANE PRN ×2 (06:43→09:04)
[2021-04-06] MEDS: IPRATROPIUM-ALBUTEROL 3 ML NEB INHALATION SCH ×4 (07:26→21:14)
[2021-04-06] MEDS: BUDESONIDE 1 MG/2 ML NEBU INHALATION SCH ×2 (07:26→21:14)
[2021-04-06 07:56] LABS: HCT 24.7 % (39.0-53.0); HGB 7.9 gm/dL (13.0-17.5); Hypochromasia Slight; MCH 29.2 pg (25.0-35.0); MCHC 32.2 g/dL (31.0-37.0); MCV 90.6 fL (80.0-100.0); Mean Platelet Volume 7.3; Platelet Count 409 k/uL (150-450); RBC 2.72 m/uL (4.30-5.90); RDW 14.7 % (11.5-15.5); WBC 11.3 k/uL (3.8-10.6)
[2021-04-06 08:22] LABS: Potassium 4.4 mmol/L (3.5-5.1)
--- NOTE | 2021-04-06 08:35 | XR ---
EXAMINATION TYPE: XR chest 1V portable DATE OF EXAM: 04/06/2021 COMPARISON: Chest x-ray 04/05/2021 HISTORY: Postop aortic valve replacement TECHNIQUE: Single frontal view of the chest is obtained. FINDINGS: Patient is post median sternotomy and left atrial appendage clip placement. There are over lying artifacts. No evident pneumothorax. Basilar density persists on the left, there is blunting the costophrenic angle, increased retrocardiac density. Cardiac mediastinal silhouette is stable. Minima l patchy density at the right lung base. IMPRESSION: Basilar atelectasis, possible associated effusion.
[2021-04-06] MEDS: INSULIN PUMP BASAL RATES 1 EACH MISC MISCELLANE PRN ×2 (09:04→19:33)
[2021-04-06] MEDS: TAMSULOSIN 0.4 MG CAP.ER.24H PO SCH ×2 (09:19→17:29)
[2021-04-06] MEDS: METOPROLOL TARTRATE 25 MG TAB PO SCH ×2 (09:19→21:43)
[2021-04-06] MEDS: FUROSEMIDE 20 MG TAB PO SCH ×2 (09:19→17:29)
[2021-04-06] MEDS: CLOPIDOGREL 75 MG TAB PO SCH (09:20)
[2021-04-06] MEDS: AMIODARONE 200 MG TAB PO SCH ×2 (09:20→21:43)
[2021-04-06] MEDS: LOSARTAN 50 MG TAB PO SCH (09:20)
[2021-04-06] MEDS: APIXABAN 5 MG TAB PO SCH ×2 (09:20→21:42)
--- NOTE | 2021-04-06 09:40 | P.PN ---
Subjective Patient is seen in follow-up for acute kidney injury. Renal function stable. On oral Lasix. Oropeza catheter had to be reinserted due to urinary retention. Nonoliguric. No vomiting or diarrhea. Vital signs are stable. General: The patient appeared well nourished and normally developed. HEENT: Head exam is unremarkable. LUNGS: Breath sounds decreased. HEART: Rate and Rhythm are regular. ABDOMEN: Soft, no distention. EXTREMITITES: No edema. Objective - Vital Signs Vital signs: Vital Signs Temp 98.3 F 04/06/21 08:00 Pulse 83 04/06/21 08:00 Resp 16 04/06/21 08:00 BP 125/61 04/06/21 08:00 Pulse Ox 94 L 04/06/21 08:00 Intake & Output 04/05/21 04/06/21 04/06/21 18:59 06:59 18:59 Intake Total 360 240 Output Total 1600 1800 Balance -1240 -1800 240 Weight 96.9 kg Intake: Oral 360 240 Output: Urine 1600 1800 Other: Voiding Method Indwelling Catheter Indwelling Catheter # Voids 0 # Bowel Movements 1 ABP, PAP, CO, CI - Last Documented Arterial Blood Pressure 104/75 Pulmonary Artery Pressure 48/25 Cardiac Output 5.1 Cardiac Index 2.4 - Labs CBC & Chem 7: 04/06/21 07:16 04/06/21 07:16 Labs: Abnormal Lab Results - Last 24 Hours (Table) 04/05/21 04/05/21 04/05/21 Range/Units 11:54 16:52 20:17 WBC (3.8-10.6) k/uL RBC (4.30-5.90) m/uL Hgb (13.0-17.5) gm/dL Hct (39.0-53.0) % Sodium (137-145) mmol/L BUN (9-20) mg/dL Glucose (74-99) mg/dL POC Glucose (mg/dL) 166 H 222 H 258 H (75-99) mg/dL Calcium (8.4-10.2) mg/dL 04/06/21 04/06/21 04/06/21 Range/Units 02:02 05:51 07:16 WBC (3.8-10.6) k/uL RBC (4.30-5.90) m/uL Hgb (13.0-17.5) gm/dL Hct (39.0-53.0) % Sodium 135 L (137-145) mmol/L BUN 28 H (9-20) mg/dL Glucose 190 H (74-99) mg/dL POC Glucose (mg/dL) 150 H 233 H (75-99) mg/dL Calcium 8.0 L (8.4-10.2) mg/dL 04/06/21 Range/Units 07:16 WBC 11.3 H (3.8-10.6) k/uL RBC 2.72 L (4.30-5.90) m/uL Hgb 7.9 L (13.0-17.5) gm/dL Hct 24.7 L (39.0-53.0) % Sodium (137-145) mmol/L BUN (9-20) mg/dL Glucose (74-99) mg/dL POC Glucose (mg/dL) (75-99) mg/dL Calcium (8.4-10.2) mg/dL Assessment and Plan Plan: Assessment: 1. Acute kidney injury mostly prerenal secondary to cardiorenal syndrome. Creatinine stable at 1.23 today. 2. Hypervolemic hyponatremia. Stable. 3. Urinary retention status post Oropeza catheter placement. On Flomax. Urology consulted. 4. Status post aortic valve replacement. 5. Fluid overload. Improved with diuresis. 6. A. fib. Plan: Maintain Lasix. Avoid nephrotoxins. Continue to monitor renal function and urine output.
--- NOTE | 2021-04-06 10:35 | P.PN ---
Subjective Progress Note Date: 04/06/21 Principal diagnosis: Aortic valve disorder with predominant aortic valve regurgitation, evidence of bicuspid aortic valve with incomplete fusion of right and non-coronary cusps. P ast medical history significant for hypertension, hyperlipidemia, Type 1 insulin-dependent diabetes, asthma with recent exacerbation treated with steroids, hypothyroid, history of a broken pelvis and drop foot to his right foot from 2010, history of urinary retention in 2010 requiring discharge home with Oropeza catheter, GERD and family history of premature coronary artery disease with father from myocardial infarction at 56 years old. Preoperative nasal screen positive for MSSA POD #8 aortic valve replacement using a 25 mm Inspiris pericardial bioprosthesis, exclusion of the left atrial appendage using a 35 mm AtriClip, intraoperative transesophageal echocardiogram and epi-aortic scanning Postoperative acute blood loss anemia and thrombocytopenia, expected given hemodilution, cardiopulmonary bypass pump Acute kidney injury, unexpected Postoperative atrial fibrillation, known common occurrence after open heart surgery The patient was seen in follow-up today 04/06/2021 at his bedside on the cardiac stepdown unit. Currently sitting up to the bedside chair, is awake, alert and oriented 3 and is in no acute apparent distress. He denies any complaints of shortness breath or pain at this time. Oropeza catheter remains in place for urinary retention, consult to urology remains pending. Oxygen saturation are 94% on room air and he is achieving 1850 mL on his incentive spirometry with encouragement. Bedside telemetry showing normal sinus rhythm heart rate 89 BPM. No further episodes of atrial fibrillation were reported. He was started on Eliquis 5 mg by mouth twice a day yesterday for anticoagulation. He reports he has been up ambulating in the cardiac stepdown unit hallway with standby assistance from nursing and physical therapy staff. His home insulin pump is in place. He remains afebrile last 24 hours. Laboratory results this morning show a WBC count 11.3, hemoglobin 7.9, hematocrit 24.7, platelets 409, sodium 135, potassium 4.4, BUN 28 and creatinine 1.23. Objective - Vital Signs Vital signs: Vital Signs Temp 98.3 F 04/06/21 08:00 Pulse 83 04/06/21 08:00 Resp 16 04/06/21 08:00 BP 125/61 04/06/21 08:00 Pulse Ox 94 L 04/06/21 08:00 Intake & Output 04/05/21 04/06/21 04/06/21 18:59 06:59 18:59 Intake Total 360 240 Output Total 1600 1800 Balance -1240 -1800 240 Weight 96.9 kg Intake: Oral 360 240 Output: Urine 1600 1800 Other: Voiding Method Indwelling Catheter Indwelling Catheter # Voids 0 # Bowel Movements 1 ABP, PAP, CO, CI - Last Documented Arterial Blood Pressure 104/75 Pulmonary Artery Pressure 48/25 Cardiac Output 5.1 Cardiac Index 2.4 - Exam CONSTITUTIONAL: Sitting up to the bedside chair on the cardiac stepdown unit, appears comfortable, cooperative, no apparent acute distress. HEENT: Neck is supple, no JVD, no lymphadenopathy. RESPIRATORY: Lungs sounds essentially clear throughout, diminished to his bilateral bases. Respirations are symmetrical and nonlabored. Currently on room air with oxygen saturations 94%. Able to achieve 1500 mL on his incentive spirometry. Strong cough. CARDIOVASCULAR: Regular rhythm and rate. S1 and S2 present, negative for S3, gallop or murmur. Sternum is stable. Palpable peripheral pulses bilaterally, +1 edema to his bilateral lower extremities. No calf pain or tenderness noted. Heart hugger in place with patient demonstrating appropriate use. Knee-high BUSHRA hose and sequential compression devices in place to his bilateral lower extremities. Remote telemetry showing normal sinus rhythm heart rate 89 BPM. GASTROINTESTINAL: Abdomen soft, nontender, nondistended. Active bowel sounds present 4 quadrants. Tolerating diet. Passing flatus. No guarding or rigidity. Bowel movement yesterday 04/05/2021. GENITOURINARY: Oropeza catheter in place with clear yellow urine. Output 1300 mL in the last 8 hours INTEGUMENTARY: Skin is warm and dry with no evidence of clubbing or cyanosis. Midline sternal incision clean dry and well approximated, covered with dry intact dressing. MUSKULOSKELETAL: Able to move all extremities, strength equal bilaterally, generalized weakness. PSYCHIATRIC: Alert and oriented to person place and time, appropriate affect, intact judgment and insight. - Allied health notes Allied health notes reviewed: nursing - Labs CBC & Chem 7: 04/06/21 07:16 04/06/21 07:16 Labs: Abnormal Lab Results - Last 24 Hours (Table) 04/05/21 04/05/21 04/05/21 Range/Units 11:54 16:52 20:17 WBC (3.8-10.6) k/uL RBC (4.30-5.90) m/uL Hgb (13.0-17.5) gm/dL Hct (39.0-53.0) % Sodium (137-145) mmol/L BUN (9-20) mg/dL Glucose (74-99) mg/dL POC Glucose (mg/dL) 166 H 222 H 258 H (75-99) mg/dL Calcium (8.4-10.2) mg/dL 04/06/21 04/06/21 04/06/21 Range/Units 02:02 05:51 07:16 WBC (3.8-10.6) k/uL RBC (4.30-5.90) m/uL Hgb (13.0-17.5) gm/dL Hct (39.0-53.0) % Sodium 135 L (137-145) mmol/L BUN 28 H (9-20) mg/dL Glucose 190 H (74-99) mg/dL POC Glucose (mg/dL) 150 H 233 H (75-99) mg/dL Calcium 8.0 L (8.4-10.2) mg/dL 04/06/21 Range/Units 07:16 WBC 11.3 H (3.8-10.6) k/uL RBC 2.72 L (4.30-5.90) m/uL Hgb 7.9 L (13.0-17.5) gm/dL Hct 24.7 L (39.0-53.0) % Sodium (137-145) mmol/L BUN (9-20) mg/dL Glucose (74-99) mg/dL POC Glucose (mg/dL) (75-99) mg/dL Calcium (8.4-10.2) mg/dL - Imaging and Cardiology Chest x-ray: report reviewed, image reviewed Assessment and Plan Assessment: 1. Aortic valve disorder with predominant aortic valve regurgitation, evidence of bicuspid aortic valve with incomplete fusion of right and non-coronary cusps, status post aortic valve replacement 2. History of hypertension 3. History of hyperlipidemia, treated, cholesterol 161, LDL 73, triglycerides 56 4. Insulin-dependent diabetes, type I with insulin pump, preoperative hemoglobin A1c 7.6% 5. Asthma with recent exacerbation treated with steroids and antibiotic, moderate restrictive disease with preoperative FEV1 59% of predicted 6. Hypothyroid 7. GERD 8. Family history of premature coronary artery disease with father from myocardial infarction at 56 years old 9. Vaccinated with Moderna, last dose June 2020 10. Preoperative nasal screen positive for MSSA, treated 11. Postoperative acute blood loss anemia and thrombocytopenia, expected 12. Acute kidney injury, resolving 13. History of urinary retention in 2010 requiring discharge home with Oropeza catheter after a fractured pelvis injury 14. History of drop with to his right foot, status post his pelvic fracture in 2010 15. Postoperative atrial fibrillation, known common occurrence after open heart surgery, status post left atrial appendage ligation 16. Urinary retention requiring replacement of Oropeza catheter, patient has a history of urinary retention in 2010 requiring discharge home with a Oropeza catheter at that time Plan: 1. Continue statin, Plavix, beta caroline. Will increase metoprolol tartrate as tolerated. 2. Continue amiodarone 400 mg by mouth twice a day. We will titrate the amiodarone to 200 mg by mouth twice a day today. 3. Encourage incentive spirometry use 10 times every hour while awake. Bronchodilators, inhaled steroids per pulmonology 4. Increase activity, ambulate as tolerated. PT/OT/cardiac rehab following. 5. Will monitor daily labs and chest x-rays. Electrolyte replacement per protocol. 6. GI/DVT prophylaxis. 7. Pain control with current medication regimen. 8. Insulin management per primary care service. Patient needs tight blood sugar control to promote healing and prevent infection. The patient has transitioned back to his home insulin pump. 9. Keep Oropeza catheter in place due to urinary retention. Urology consult pending. 10. Strict accurate intake and output. Daily weights. 11. Continue Cozaar 50 mg by mouth daily at noon for afterload reduction. 12. Lasix management per nephrology's recommendations. Avoid nephrotoxic agents. 13. Continue Eliquis 5 mg by mouth twice a day due to his atrial fibrillation for anticoagulation. 14. Discharge planning is in place, anticipate discharge home within the next 24 hours 15. More recommendations to follow based on patient's clinical course. Time with Patient: Greater than 30
--- NOTE | 2021-04-06 10:38 | CDI ---
Documentation Clarification Form Date: 04/06/2021 09:52:12 AM From: Darline Webster RN, CCDS Admit Date: 03/29/2021 05:39:00 AM Patient Name: Chaparro Glasgow Visit Number: [id number] Discharge Date: ATTENTION: The Clinical Documentation Specialists (CDI) and [facility] Coding Staff appreciate your assistance in clarifying documentation. Please respond to the clarification below the line at the bottom and electronically sign. The CDI & [facility] Coding staff will review the response and follow-up if needed. Please note: Queries are made part of the Legal Health Record. If you have any questions, please contact the author of this message via ITS. Dr. Clemencia Arauz Acute kidney injury, unexpected is documented on 03/31 and subsequent progress notes, and patient had an aortic valve replacement on 03/29/21. Additional clarification is requested regarding the relationship, if any, that exists between the diagnosis and the procedure. 03/31 Nephrology consult: Acute kidney injury, mulfifactorial, including use of NSAIDs in the setting of use of angiotension receptor blockers with perhaps a component of hypotension, although there were only a couple of readings of lowish systolic blood pressure. 17:45 BP 92/51 73 24 Patients Admitting Diagnosis: Aortic valve with predominant aortic valve regurgitation. Post-Operative Diagnosis: Aortic valve disorder with aortic valve regurgitation. Evidence of a bicuspid aortic valve with incomplete fusion of the right and non coronary cusps. 03/29 Procedure performed: 1.Aortic valve replacement using a 25 mm pericardial bioprosthesis Inspirus. 2.Excision of the left atrial appendage using a 35 mm AtriClip. 3.Intraoperative transesophageal echocardiogram and epiaortic scanning. Clinical Indicators: 70-year-old male with a symptomatic aortic valve disorder with predominant aortic valve regurgitation with mild to moderate left ventricular dysfunction. He presents for aortic valve replacement. 03/31 POD #2 Progress note: acute kidney injury, unexpected. BUN/creatinine this AM 40/2.34, up from yesterday. Urine output remains low at 15-25 ml/hr overnight. Treatment: ICU/Telemetry monitoring Monitor daily labs. Electrolyte replacement per protocol Continue Oropeza catheter for another 24 hours for strict accurate intake and output. Daily weights Start renal dose dopamine, consult nephrology Avoid nephrotoxic agents What relationship, if any, exists between the diagnosis of acute kidney injury, unexpected and the procedure: [ ] Acute kidney injury unexpected, is a complication of surgical procedure [x ] Acute kidney injury unexpected is multifactorial, per nephrology findings, and not a complication of the procedure [ ] Other please specify ____ [ ] Unable to determine (Template Last Revised: July 2020) MTDD
--- NOTE | 2021-04-06 11:20 | CDI ---
Documentation Clarification Form Date: 04/06/2021 10:55:34 AM From: Darline Webster RN, CCDS Admit Date: 03/29/2021 05:39:00 AM Patient Name: Chaparro Glasgow Visit Number: [id number] Discharge Date: ATTENTION: The Clinical Documentation Specialists (CDI) and [facility] Coding Staff appreciate your assistance in clarifying documentation. Please respond to the clarification below the line at the bottom and electronically sign. The CDI & [facility] Coding staff will review the response and follow-up if needed. Please note: Queries are made part of the Legal Health Record. If you have any questions, please contact the author of this message via ITS. Dr. Charlotte Jenkins Hypotension is documented in the nephrology consult and subsequent progress notes. Additional clarification regarding this diagnosis is requested. History/Risk Factors: Aortic valve regurgitation, Diabetes Mellitus type 1, Hypertension, Hyperlipidemia, Hypothyroidism Clinical Indicators: 70-year-old male with a symptomatic aortic valve disorder with predominant aortic valve regurgitation with mild to moderate left ventricular dysfunction. He present for aortic valve replacement. 03/31 Nephrology consult: Acute kidney injury, mulfifactorial, including use of NSAIDs in the setting of use of angiotension receptor blockers with perhaps a component of hypotension, although there were only a couple of readings of lowish systolic blood pressure. 03/30 @20:00 90/54 97 , 21:00 104/60 94 21 03/31 @ 11:00 94/65 94 33; 11:15 134/65 82 25, 17:45 92/51 73 24, 18:00 92/51 71 26 Treatment: ICU/Telemetry monitoring Monitor daily labs. Electrolyte replacement per protocol Continue Oropeza catheter for another 24 hours for strict accurate intake and output. Daily weights Dopamine 250 mls@3.716 hr 03/31 0713-12:23) Avoid nephrotoxic agents Can the hypotension be further specified? [ ] Hypotension (specify cause and significance) [ ] Postoperative Hypotension, not clinically significant [ ] Other Condition, please specify [ ] Unable to determine (Template Last Revised: July 2020) possibly related to bradycardia MTDD
[2021-04-06 11:55] LABS: Glucose,Whole Blood 151 mg/dL (75-99)
--- NOTE | 2021-04-06 13:09 | P.PN ---
Subjective Progress Note Date: 04/06/21 HISTORY OF PRESENT ILLNESS [age]-year-old male one of Dr. Marcano patient with past medical history of type 1 diabetes on insulin pump who had history of asthma seen Dr. Harry chapa on regular basis, known to have history of hypertension hyperlipidemia and hypothyroidism who was hospitalized in February 07 to 02/10/2021 for worsening dyspnea and shortness of breath ended up going for further workup including heart catheter and transthoracic echocardiogram and process is Optigene echocardiogram findings were consistent with severe aortic stenosis with no major coronary artery involvement. Patient ended up seeing cardiothoracic surgeon Dr. Torres and plan to do an elective aortic valve placement which was done successfully, patient was on mechanical ventilation for sure. Of time and was weaned off shortly after he seen pulmonary ready. His blood sugar has been better controlled currently with insulin drip which will be continued this point until patient is able to take oral intake with switch him to insulin pump. Patient otherwise stable hemodynamically doing well he is maintaining his on airway on the hardly any vasopressor. 03/30: Patient is seen in the intensive care unit. He is sitting up in a recliner appears to be comfortable. He is currently on insulin drip which we will plan to transition over to Levemir tonight and in about one day or so, patient will be transitioned to his insulin pump. Blood sugars are running 121- 187. Right cordis and chest tubes remains in place. Patient does have chest discomfort, no complaints of shortness of breath. 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 He has not required vasopressors. Patient has been afebrile. WBC 16.2, hemoglobin 10.1, platelet count 149. Sodium 133, potassium 5.1, chloride 109, CO2 19, BUN 24 and creatinine 0.82. Magnesium 2.4. Repeat chest x-ray reveals probable basilar atelectasis. Patient is reaching 1000 on incentive spirometry. 03/31: Remains in intensive care unit, he is up sitting in a chair and recliner and appears to be quite comfortable. Patient overall looks much improved from yesterday. His chest tubes are out. He is working today with physical therapy. He ate breakfast this morning. He denies any nausea vomiting or diarrhea. Chest discomfort is controlled. He denies any fever or chills, denies cough. He has been afebrile, heart rate in the 80s and 90s, blood pressure 111/57, pulse ox 95% on room air. Repeat blood work reveals WBC 12.9, hemoglobin 8.8, platelet count 117. Sodium 130, potassium 5.1, chloride 105, CO2 19, BUN 40 creatinine 2.34. Blood sugars are running 128 274. Patient did receive a dose of Levemir last evening but unclear why insulin drip was not discontinued. We will increase Levemir to 20 units and switch patient over to scale insulin with plan to transition him to insulin pump tomorrow. 04/01: Patient is found sitting up in recliner and appears to be comfortable. Patient's blood sugars have been uncontrolled starting yesterday at supper of 260, bedtime 394, 7 AM 310. The following changes have been made. Capillary blood glucose every 2 hours, insulin scale every 2 hours, additional 10 units no w, increase NovoLog 6 units with meals, Levemir increased to 15 units twice daily. WBC is 10.7, hemoglobin 8.2, platelet count 110. BUN 50 and creatinine 1.48. Sodium 127. Patient is on amiodarone drip. Repeat chest x-ray reveals bilateral infiltrate and pleural effusion greater on the left. 04/02: Patient remains in intensive care unit. He has been transitioned over to his insulin pump and blood sugars are improved but actually hypo-glycemic with blood sugar of 49 this morning. He states his pain is controlled. Difficulty in breathing is stable. Patient has been transitioned to oral amiodarone and metoprolol for atrial fibrillation. He is afebrile, heart rate 60, blood pressure 116/51, pulse ox 90% on room air. Repeat blood work reveals WBC 14.2, hemoglobin 8.6, platelet count 193. Sodium 134, potassium 4.5, chloride 108, CO2 20, BUN 40. Creatinine 1.2. Liver function tests normal. Discharge plan is to return home with [facility]. 04/03: Patient admitted to the medical floor, has shortness of breath on exertion, no chest pain no palpitations, patient is anemic hemoglobin of 8.5, WBC count 11.2, creatinine of 1.14, patient denies any urinary retention at this time, has some lower extremity edema, blood sugars are between 110-251, vitals are stable, heart rate 73, pulse ox 96% room air, blood pressure 130/62 patient would receive IV for illicit, thereafter oral iron supplementation can be provided. For symptomatic anemia patient will need when necessary Lasix, as for edema, which could be given in a.m. Patient was given furosemide 20 mg 1 dose today continue PT OT 04/04: Patient is to doing better, has diuresed, with Lasix 40 IV, required stra ight cath last night, times one, Flomax initiated. Patient does not have any urine pressure at this time, no dysuria, we'll going to transition him to oral Lasix 20 mg twice a day as per home. completed one-time dose of Ferrlecit IV Vital signs stable, anticipate home discharge with therapy in the morning 04/05: Repeat chest x-ray reveals probable left lower lobe atelectasis and associated effusion. Patient had a Oropeza catheter reinserted for urinary retention. He has had some increase in creatinine to 1.28. Nephrology is recommending maintaining Lasix and avoid nephrotoxins. Monitor renal function and urine output. Cardiology is decreased amiodarone to 200 mg twice daily and patient to follow-up with Dr. Ames as an outpatient. He has been afebrile, heart rate 80, blood pressure 105/58, pulse ox 94% on room air. Blood sugars are currently running between 130 886. Patient is on his insulin pump. Discharge plan is to return home with home care. Anticipate discharge the next 24 hours. 04/06: Is seen today on the cardiac stepdown unit. He states he is scheduled for discharge home today but is waiting for urology to determine if he needs to continue Oropeza catheter in place at home. He has been afebrile, heart rate 83, blood pressure 125/61, pulse ox 94% on room air. Repeat blood work reveals WBC 11.3, hemoglobin 7.9, platelet count 409. Sodium 135, potassium 4.4, CO2 24, BUN 28 creatinine 1.23. Blood sugars are running 150-258. He is on his insulin pump. Repeat chest x-ray reveals basilar atelectasis possible associated effusion. Anticipate discharge home today. REVIEW OF SYSTEMS Constitutional: No fever, no chills, no night sweats. No weight change. No weakness, fatigue or lethargy. No daytime sleepiness. EENT: No headache. No blurred vision or double vision, no loss of vision. No loss of Hearing, no ringing in the ears, no dizziness. No nasal drainage or congestion. No epistaxis. No sore throat. Lungs: No shortness of breath, cough, no sputum production. No wheezing. Cardiovascular: Chest discomfort secondary to placement and left atrial appendage so far no complication no arrhythmia, no lower extremity edema. No palpitations. Abdominal: No abdominal pain. No nausea, vomiting. No diarrhea. No c onstipation. No bloody or tarry stools.. No loss of appetite. Genitourinary: No dysuria, increased frequency, urgency. No urinary retention. Musculoskeletal: No myalgias. No muscle weakness, no gait dysfunction, no frequent falls. No back pain. No neck pain. Integumentary: No wounds, no lesions. No rash or pruritus. No unusual bruising. No change in hair or nails. Neurologic: No aphasia. No facial droop. No change in mentation. No head injury. No headache. No paralysis. No paresthesia. Psychiatric: No depression. No anxiety. No mood swings. Endocrine: Noted abnormal blood sugars, improved. No weight change. PHYSICAL EXAMINATION Gen: This is a 70-year-old resting in recliner and appears to be in no acute distress. HEENT: Head is atraumatic, normocephalic. Pupils equal, round. Sclerae is anicteric. NECK: Supple. No JVD. No lymphadenopathy. No thyromegaly. LUNGS: Diminished to the bases. HEART: Regular rate and rhythm. 2/6 systolic murmur. ABDOMEN: Soft. Bowel sounds are present. No masses. No tenderness. Oropeza catheter draining clear casa urine. EXTREMITIES: No pedal edema. No calf tenderness. NEUROLOGICAL: Patient is awake, alert and oriented x3. Cranial nerves 2 through 12 are grossly intact. ASSESSMENT AND PLAN 1. Status post aortic valve replacement and excision of left atrial appendage, 03/29. Continue current plan per cardiothoracic team. Patient is currently on Lipitor 40 mg daily, Plavix 75 mg daily, Lasix 20 mg twice daily, losartan 50 mg daily, Lopressor 75 mg twice daily. 2 type 1 diabetes uncontrolled with hyperglycemia. Patient has been resumed on insulin pump. 3 hypertension. Continue losartan 50 mg daily, Lopressor 75 mg 2times daily 4 hyperlipidemia: Continue patient on atorvastatin 40 mg daily. 5 history of asthma, mild intermittent: Patient seen pulmonary on regular basis and was on Pulmicort and Ventolin inhaler with continue nebulizer management as well this point. Patient is still on Singulair 10 mg a day which will be resumed. 6 hypothyroidism: Has been on levothyroxine 150 g daily resume medication. 7 severe GERD/GI prophylaxis: Continue Protonix 8 thrombocytopenia, POA. 9. Acute kidney injury. Continue to monitor renal function, avoid hypotension and nephrotoxic agents. Nephrology consult appreciated. 10. Paroxysmal atrial fibrillation. Patient is on amiodarone decreased to 200 mg twice daily, Lopressor 75 mg twice daily, eliquis 5 mg twice daily. 11. DVT prophylaxis. Eliquis. 12. Exertional dyspnea, postoperatively, could be related to symptomatic anemia, iron infusion one-time. 13. Edema, IV Lasix when necessary to restart 20 mg twice a day oral Lasix 14. Iron deficiency anemia, precipitous drop of hemoglobin, status post iron infusion. 15. Urinary retention requiring placement of Oropeza catheter. DISCHARGE PLAN Home with [facility] Monday Impression and plan of care have been directed as dictated by the signing physician. Maria R Topete nurse practitioner acting as scribe for signing physician. Objective - Vital Signs Vital signs: Vital Signs Temp 98.3 F 04/06/21 08:00 Pulse 83 04/06/21 08:00 Resp 16 04/06/21 08:00 BP 125/61 04/06/21 08:00 Pulse Ox 94 L 04/06/21 08:00 Intake & Output 04/05/21 04/06/21 04/06/21 18:59 06:59 18:59 Intake Total 360 240 Output Total 1600 1800 Balance -1240 -1800 240 Weight 96.9 kg Intake: Oral 360 240 Output: Urine 1600 1800 Other: Voiding Method Indwelling Catheter Indwelling Catheter # Voids 0 # Bowel Movements 1 ABP, PAP, CO, CI - Last Documented Arterial Blood Pressure 104/75 Pulmonary Artery Pressure 48/25 Cardiac Output 5.1 Cardiac Index 2.4 - Labs CBC & Chem 7: 04/06/21 07:16 04/06/21 07:16 Labs: Abnormal Lab Results - Last 24 Hours (Table) 04/05/21 04/05/21 04/05/21 Range/Units 11:54 16:52 20:17 WBC (3.8-10.6) k/uL RBC (4.30-5.90) m/uL Hgb (13.0-17.5) gm/dL Hct (39.0-53.0) % Sodium (137-145) mmol/L BUN (9-20) mg/dL Glucose (74-99) mg/dL POC Glucose (mg/dL) 166 H 222 H 258 H (75-99) mg/dL Calcium (8.4-10.2) mg/dL 04/06/21 04/06/21 04/06/21 Range/Units 02:02 05:51 07:16 WBC (3.8-10.6) k/uL RBC (4.30-5.90) m/uL Hgb (13.0-17.5) gm/dL Hct (39.0-53.0) % Sodium 135 L (137-145) mmol/L BUN 28 H (9-20) mg/dL Glucose 190 H (74-99) mg/dL POC Glucose (mg/dL) 150 H 233 H (75-99) mg/dL Calcium 8.0 L (8.4-10.2) mg/dL 04/06/21 Range/Units 07:16 WBC 11.3 H (3.8-10.6) k/uL RBC 2.72 L (4.30-5.90) m/uL Hgb 7.9 L (13.0-17.5) gm/dL Hct 24.7 L (39.0-53.0) % Sodium (137-145) mmol/L BUN (9-20) mg/dL Glucose (74-99) mg/dL POC Glucose (mg/dL) (75-99) mg/dL Calcium (8.4-10.2) mg/dL
--- NOTE | 2021-04-06 13:45 | P.PN ---
Subjective This is a 70 year old female with a past medical history of aortic regurgitation, hypertension, hyperlipidemia, Type 1 insulin-dependent diabetes, asthma, hypothyroidism, GERD and family history of coronary artery disease. She follows with Dr. Ames. She underwent aortic valve replacement aortic valve replacement using a 25 mm Inspiris pericardial bioprosthesis, exclusion of the left atrial appendage intraoperative on 03/29/21. She did have postoperative atrial fibrillation. Patient seen and examined at bedside. He is sitting up to the bedside chair, is awake, alert and oriented 3 and is in no acute apparent distress. He denies any complaints of shortness breath or chest pain. Overall he is feeling well and states he may be discharged soon. He is having urinary retention and jacobs remains in place. Telemetry reviewed, patient maintaining sinus mechanism heart rates in the 60s80s.No further episodes of atrial fibrillation . His vital signs are stable. He is on room air. He is using his incentive spirometry with encouragement. He's currently maintained on amiodarone 200 mg twice a day, Eliquis 5 mg twice a day, atorvastatin 40 mg nightly, Plavix 75 mg daily, losartan 50 mg daily, metoprolol tartrate 75 mg twice a day Laboratory results this morning revealed WBC 11.3, hemoglobin 7.9, platelets 409, sodium 135, potassium 4.4, BUN 28, serum creatinine 1.2, magnesium 2.0 GENERAL: Well-appearing, well-nourished and in no acute distress. NECK: Supple without JVD or thyromegaly. LUNGS: Breath sounds clear to auscultation bilaterally. Respiration equal and unlabored. No wheezes, rales or rhonchi. HEART: Regular rate and rhythm without. Systolic murmur at base. S1 and S2 heard. EXTREMITIES: Normal range of motion, no edema. No clubbing or cyanosis. Peripheral pulses intact. ASSESSMENT Aortic regurgitation status post aortic valve replacement History of hypertension History of hyperlipidemia Type I Diabetes with insulin pump Asthma Hypothyroidismm GERD Acute kidney injury, resolving Postoperative paroxysmal atrial fibrillation, currently on Eliquis PLAN Continue current medical therapy Continue amiodarone to 200mg BID Post operative management per CT Surgery Continue cardiac telemetry while inpatient Increase activity, ambulate as tolerated. Encourage incentive spirometry On discharge, patient to follow up with Dr. Ames Objective - Vital Signs Vital signs: Vital Signs Temp 98.3 F 04/06/21 08:00 Pulse 82 04/06/21 11:38 Resp 16 04/06/21 08:00 BP 125/61 04/06/21 08:00 Pulse Ox 94 L 04/06/21 08:00 Intake & Output 04/05/21 04/06/21 04/06/21 18:59 06:59 18:59 Intake Total 360 240 Output Total 1600 1800 Balance -1240 -1800 240 Weight 96.9 kg Intake: Oral 360 240 Output: Urine 1600 1800 Other: Voiding Method Indwelling Catheter Indwelling Catheter # Voids 0 # Bowel Movements 1 ABP, PAP, CO, CI - Last Documented Arterial Blood Pressure 104/75 Pulmonary Artery Pressure 48/25 Cardiac Output 5.1 Cardiac Index 2.4 - Labs CBC & Chem 7: 04/06/21 07:16 04/06/21 07:16 Labs: Abnormal Lab Results - Last 24 Hours (Table) 04/05/21 04/05/21 04/06/21 Range/Units 16:52 20:17 02:02 WBC (3.8-10.6) k/uL RBC (4.30-5.90) m/uL Hgb (13.0-17.5) gm/dL Hct (39.0-53.0) % Sodium (137-145) mmol/L BUN (9-20) mg/dL Glucose (74-99) mg/dL POC Glucose (mg/dL) 222 H 258 H 150 H (75-99) mg/dL Calcium (8.4-10.2) mg/dL 04/06/21 04/06/21 04/06/21 Range/Units 05:51 07:16 07:16 WBC 11.3 H (3.8-10.6) k/uL RBC 2.72 L (4.30-5.90) m/uL Hgb 7.9 L (13.0-17.5) gm/dL Hct 24.7 L (39.0-53.0) % Sodium 135 L (137-145) mmol/L BUN 28 H (9-20) mg/dL Glucose 190 H (74-99) mg/dL POC Glucose (mg/dL) 233 H (75-99) mg/dL Calcium 8.0 L (8.4-10.2) mg/dL 04/06/21 Range/Units 11:53 WBC (3.8-10.6) k/uL RBC (4.30-5.90) m/uL Hgb (13.0-17.5) gm/dL Hct (39.0-53.0) % Sodium (137-145) mmol/L BUN (9-20) mg/dL Glucose (74-99) mg/dL POC Glucose (mg/dL) 151 H (75-99) mg/dL Calcium (8.4-10.2) mg/dL
--- NOTE | 2021-04-06 16:50 | P.GSCN ---
History of Present Illness Consult date: 04/06/21 Reason for Consult: Urinary retention Requesting physician: Yoav Cason History of present illness: The patient is a 71-year-old white male who underwent aortic valve replacement on 03/29/2021. He has developed postoperative urinary retention, and I am consulted for this reason. He reports a history of urinary retention in 2010 after a pelvis fracture, requiring him to be discharged home at that time with a Oropeza catheter in place. He currently has a Oropeza catheter in place and is receiving tamsulosin. Other than above, the patient has an unremarkable urologic history. He was not having any voiding difficulty prior to admission. Specifically, he states that his urinary stream was strong, and he denies dysuria, hematuria, and urinary frequency. He reports occasional nocturia. Review of Systems - Constitutional Denies chills, Denies fever - Genitourinary Reports as per HPI Past Medical History Past Medical History: Asthma, Diabetes Mellitus, GERD/Reflux, Hyperlipidemia, Hypertension, Osteoarthritis (OA), Skin Disorder, Thyroid Disorder Additional Past Medical History / Comment(s): Moderate persistant asthma, IDDM type I- insulin pump and subcutaneous diabetic sensor, hypothyroidism, vitiligo for 17 years, seasonal allergic rhinitis, right foot drop secondary to pelvic fracture, SOB w/exertion, recent flare up w/athma, finished A/B & steroids, f eeling much better History of Any Multi-Drug Resistant Organisms: None Reported Past Surgical History: Heart Catheterization, Orthopedic Surgery Additional Past Surgical History / Comment(s): reconstruction of pelvis (Feb), bilateral hands tendon release in fingers (2002), Arthoscopic in right knee (1996), steel rodrigo in great toe of right foot (1997), bilateral arthroscopic elbow surgery, left elbow radial nerve release, ORIF left ankle Past Anesthesia/Blood Transfusion Reactions: Postoperative Nausea & Vomiting (PONV) Additional Past Anesthesia/Blood Transfusion Reaction / Comm: Only after the tendon release in fingers, never had blood transfusion Smoking Status: Never smoker - Past Family History Father Family Medical History: Myocardial Infarction ([place]) Additional Family Medical History / Comment(s): had in 1972 Mother Family Medical History: Asthma, Cancer, Thyroid Disorder Additional Family Medical History / Comment(s): lung cancer (diagnosed when she was 79) Brother(s) Family Medical History: CVA/TIA, Neurologic Disorder Additional Family Medical History / Comment(s): parkinson's disease, subdural hematoma. Brother is . Sister(s) Family Medical History: No Reported History Daughter(s) Family Medical History: No Reported History Son(s) Family Medical History: No Reported History Medications and Allergies Home Medications Medication Instructions Recorded Confirmed Type Albuterol Sulfate [Proair Hfa] 2 puff INHALATION RT-Q6H PRN 12/16/13 03/25/21 History Atorvastatin Calcium [Lipitor] 40 mg PO HS 12/16/13 03/25/21 History Montelukast Sodium [Singulair] 10 mg PO HS 12/16/13 03/25/21 History traZODone HCL [Desyrel] 100 mg PO HS PRN 09/26/14 03/25/21 History Insulin Aspart (For Pump) [NovoLOG 0.01 unit SQ-PUMP CONTINUOUS 02/06/17 03/25/21 History (For Pump)] Levothyroxine Sodium [Synthroid] 150 mcg PO DAILY 02/06/17 03/25/21 History Ascorbic Acid [Vitamin C] 500 mg PO DAILY 11/24/20 03/25/21 History Famotidine [Pepcid] 20 mg PO BID 11/24/20 03/25/21 History HYDROcodone/APAP 5-325MG [[place] 1 tab PO QID PRN 11/24/20 03/25/21 History 5-325] Aspirin EC [Ecotrin Low Dose] 81 mg PO DAILY 02/07/21 03/25/21 History Levalbuterol Tartrate 1 puff INHALATION RT-BID PRN 02/07/21 03/25/21 History [Levalbuterol Tartrate 45 MCG Hfa] Fluticasone/Vilanterol [Breo 1 puff INHALATION RT-DAILY #0 02/10/21 03/25/21 Rx Ellipta 100-25 Mcg Inhaler] Furosemide [Lasix] 20 mg PO BID@0900,1600 #60 tab 02/10/21 03/25/21 Rx Losartan [Cozaar] 50 mg PO DAILY #30 tab 02/10/21 03/25/21 Rx Metoprolol Tartrate [Lopressor] 25 mg PO BID #60 tab 02/10/21 03/25/21 Rx Budesonide [Pulmicort] 1 mg INHALATION RT-BID PRN 03/11/21 03/25/21 History Cyclobenzaprine [Flexeril] 5 mg PO TID PRN 03/11/21 03/25/21 History Mupirocin [Mupirocin 2%] 1 applic NASAL BID #1 tub 03/12/21 03/25/21 Rx Tamsulosin [Flomax] 0.4 mg PO DAILY #30 cap 04/06/21 Rx Allergies Allergy/AdvReac Type Severity Reaction Status Date / Time aspirin AdvReac Unknown Rash/Hives Verified 03/25/21 09:28 Surgical - Exam Vital Signs Temp Pulse Resp BP Pulse Ox 98.3 F 61 18 147/65 98 03/29/21 06:01 03/29/21 06:01 03/29/21 06:01 03/29/21 06:01 03/29/21 06:01 - General well developed, well nourished, no distress - Respiratory normal respiratory effort - Abdomen Abdomen: soft, non tender, no guarding, no rigid, no rebound - Genitourinary normal penis with no external lesions, testicles non-tender - Rectum Rectum: normal sphincter tone, no masses, other (Prostate 30-35 g, smooth) - Psychiatric oriented to time, oriented to person, oriented to place, speech is normal, memory intact Results - Labs 04/06/21 07:16 04/06/21 07:16 Abnormal Lab Results - Last 24 Hours (Table) 04/05/21 04/05/21 04/05/21 Range/Units 06:53 06:53 11:54 RBC 2.78 L (4.30-5.90) m/uL Hgb 8.2 L (13.0-17.5) gm/dL Hct 25.0 L (39.0-53.0) % Sodium 134 L (137-145) mmol/L BUN 36 H (9-20) mg/dL Creatinine 1.28 H (0.66-1.25) mg/dL Glucose 152 H (74-99) mg/dL POC Glucose (mg/dL) 166 H (75-99) mg/dL Calcium 8.3 L (8.4-10.2) mg/dL 04/05/21 04/05/21 04/06/21 Range/Units 16:52 20:17 02:02 RBC (4.30-5.90) m/uL Hgb (13.0-17.5) gm/dL Hct (39.0-53.0) % Sodium (137-145) mmol/L BUN (9-20) mg/dL Creatinine (0.66-1.25) mg/dL Glucose (74-99) mg/dL POC Glucose (mg/dL) 222 H 258 H 150 H (75-99) mg/dL Calcium (8.4-10.2) mg/dL 04/06/21 Range/Units 05:51 RBC (4.30-5.90) m/uL Hgb (13.0-17.5) gm/dL Hct (39.0-53.0) % Sodium (137-145) mmol/L BUN (9-20) mg/dL Creatinine (0.66-1.25) mg/dL Glucose (74-99) mg/dL POC Glucose (mg/dL) 233 H (75-99) mg/dL Calcium (8.4-10.2) mg/dL Diabetes panel 04/05/21 Range/Units 06:53 Sodium 134 L (137-145) mmol/L Potassium 4.6 (3.5-5.1) mmol/L Chloride 104 (98-107) mmol/L Carbon Dioxide 24 (22-30) mmol/L BUN 36 H (9-20) mg/dL Creatinine 1.28 H (0.66-1.25) mg/dL Glucose 152 H (74-99) mg/dL Calcium 8.3 L (8.4-10.2) mg/dL Calcium panel 04/05/21 Range/Units 06:53 Calcium 8.3 L (8.4-10.2) mg/dL Pituitary panel 04/05/21 Range/Units 06:53 Sodium 134 L (137-145) mmol/L Potassium 4.6 (3.5-5.1) mmol/L Chloride 104 (98-107) mmol/L Carbon Dioxide 24 (22-30) mmol/L BUN 36 H (9-20) mg/dL Creatinine 1.28 H (0.66-1.25) mg/dL Glucose 152 H (74-99) mg/dL Calcium 8.3 L (8.4-10.2) mg/dL Adrenal panel 04/05/21 Range/Units 06:53 Sodium 134 L (137-145) mmol/L Potassium 4.6 (3.5-5.1) mmol/L Chloride 104 (98-107) mmol/L Carbon Dioxide 24 (22-30) mmol/L BUN 36 H (9-20) mg/dL Creatinine 1.28 H (0.66-1.25) mg/dL Glucose 152 H (74-99) mg/dL Calcium 8.3 L (8.4-10.2) mg/dL Assessment and Plan (1) Retention of urine, unspecified Current Visit: Yes Status: Acute Code(s): R33.9 - RETENTION OF URINE, UNSPECIFIED SNOMED Code(s): 184593552 Plan: In summary, the patient is a 70-year-old male with postoperative urinary retention. I have suggested that the Oropeza catheter be removed for a voiding trial. He is to be discharged home later today. If he is unable to void, or empties his bladder incompletely, he will need to be discharged home with the Oropeza catheter. In either case, he will follow up with me in 1 week. He will continue to take tamsulosin until the urinary retention has resolved. Time with Patient: Greater than 30
[2021-04-06 17:08] LABS: Glucose,Whole Blood 124 mg/dL (75-99)
[2021-04-06 20:37] LABS: Glucose,Whole Blood 239 mg/dL (75-99)
[2021-04-06] MEDS: SENNOSIDES-DOCUSATE SODIUM 1 EACH TAB PO SCH (21:43)
[2021-04-06] MEDS: MONTELUKAST 10 MG TAB PO SCH (21:43)
[2021-04-06] MEDS: ATORVASTATIN 40 MG TAB PO SCH (21:43)
[2021-04-07 02:07] LABS: Glucose,Whole Blood 155 mg/dL (75-99)
[2021-04-07 06:20] LABS: Glucose,Whole Blood 152 mg/dL (75-99)
[2021-04-07] MEDS: PANTOPRAZOLE 40 MG TABLET PO SCH (06:34)
[2021-04-07] MEDS: LEVOTHYROXINE 75 MCG TAB PO SCH (06:34)
[2021-04-07 06:42] LABS: HCT 25.5 % (39.0-53.0); HGB 8.2 gm/dL (13.0-17.5); Hypochromasia Slight; MCH 29.1 pg (25.0-35.0); MCHC 32.1 g/dL (31.0-37.0); MCV 90.6 fL (80.0-100.0); Mean Platelet Volume 7.1; Platelet Count 447 k/uL (150-450); RBC 2.81 m/uL (4.30-5.90); RDW 14.9 % (11.5-15.5); WBC 11.2 k/uL (3.8-10.6)
[2021-04-07 06:52] LABS: Calcium 8.1 mg/dL (8.4-10.2); Potassium 4.5 mmol/L (3.5-5.1)
[2021-04-07] MEDS: BUDESONIDE 1 MG/2 ML NEBU INHALATION SCH (07:52)
[2021-04-07] MEDS: IPRATROPIUM-ALBUTEROL 3 ML NEB INHALATION SCH ×2 (07:52→11:13)
--- NOTE | 2021-04-07 09:03 | P.PN ---
Subjective Progress Note Date: 04/07/21 HISTORY OF PRESENT ILLNESS [age]-year-old male one of Dr. Marcano patient with past medical history of type 1 diabetes on insulin pump who had history of asthma seen Dr. Harry chapa on regular basis, known to have history of hypertension hyperlipidemia and hypothyroidism who was hospitalized in February 07 to 02/10/2021 for worsening dyspnea and shortness of breath ended up going for further workup including heart catheter and transthoracic echocardiogram and process is Optigene echocardiogram findings were consistent with severe aortic stenosis with no major coronary artery involvement. Patient ended up seeing cardiothoracic surgeon Dr. Torres and plan to do an elective aortic valve placement which was done successfully, patient was on mechanical ventilation for sure. Of time and was weaned off shortly after he seen pulmonary ready. His blood sugar has been better controlled currently with insulin drip which will be continued this point until patient is able to take oral intake with switch him to insulin pump. Patient otherwise stable hemodynamically doing well he is maintaining his on airway on the hardly any vasopressor. 03/30: Patient is seen in the intensive care unit. He is sitting up in a recliner appears to be comfortable. He is currently on insulin drip which we will plan to transition over to Levemir tonight and in about one day or so, patient will be transitioned to his insulin pump. Blood sugars are running 121- 187. Right cordis and chest tubes remains in place. Patient does have chest discomfort, no complaints of shortness of breath. pvc monitor sinus rhythm with occasional PVCs. He has not required vasopressors. Patient has been afebrile. WBC 16.2, hemoglobin 10.1, platelet count 149. Sodium 133, potassium 5.1, chloride 109, CO2 19, BUN 24 and creatinine 0.82. Magnesium 2.4. Repeat chest x-ray reveals probable basilar atelectasis. Patient is reaching 1000 on incentive spirometry. 03/31: Remains in intensive care unit, he is up sitting in a chair and recliner and appears to be quite comfortable. Patient overall looks much improved from yesterday. His chest tubes are out. He is working today with physical therapy. He ate breakfast this morning. He denies any nausea vomiting or diarrhea. Chest discomfort is controlled. He denies any fever or chills, denies cough. He has been afebrile, heart rate in the 80s and 90s, blood pressure 111/57, pulse ox 95% on room air. Repeat blood work reveals WBC 12.9, hemoglobin 8.8, platelet count 117. Sodium 130, potassium 5.1, chloride 105, CO2 19, BUN 40 creatinine 2.34. Blood sugars are running 128 274. Patient did receive a dose of Levemir last evening but unclear why insulin drip was not discontinued. We will increase Levemir to 20 units and switch patient over to scale insulin with plan to transition him to insulin pump tomorrow. 04/01: Patient is found sitting up in recliner and appears to be comfortable. Patient's blood sugars have been uncontrolled starting yesterday at supper of 260, bedtime 394, 7 AM 310. The following changes have been made. Capillary blood glucose every 2 hours, insulin scale every 2 hours, additional 10 units no w, increase NovoLog 6 units with meals, Levemir increased to 15 units twice daily. WBC is 10.7, hemoglobin 8.2, platelet count 110. BUN 50 and creatinine 1.48. Sodium 127. Patient is on amiodarone drip. Repeat chest x-ray reveals bilateral infiltrate and pleural effusion greater on the left. 04/02: Patient remains in intensive care unit. He has been transitioned over to his insulin pump and blood sugars are improved but actually hypo-glycemic with blood sugar of 49 this morning. He states his pain is controlled. Difficulty in breathing is stable. Patient has been transitioned to oral amiodarone and metoprolol for atrial fibrillation. He is afebrile, heart rate 60, blood pressure 116/51, pulse ox 90% on room air. Repeat blood work reveals WBC 14.2, hemoglobin 8.6, platelet count 193. Sodium 134, potassium 4.5, chloride 108, CO2 20, BUN 40. Creatinine 1.2. Liver function tests normal. Discharge plan is to return home with [facility]. 04/03: Patient admitted to the medical floor, has shortness of breath on exertion, no chest pain no palpitations, patient is anemic hemoglobin of 8.5, WBC count 11.2, creatinine of 1.14, patient denies any urinary retention at this time, has some lower extremity edema, blood sugars are between 110-251, vitals are stable, heart rate 73, pulse ox 96% room air, blood pressure 130/62 patient would receive IV for illicit, thereafter oral iron supplementation can be provided. For symptomatic anemia patient will need when necessary Lasix, as for edema, which could be given in a.m. Patient was given furosemide 20 mg 1 dose today continue PT OT 04/04: Patient is to doing better, has diuresed, with Lasix 40 IV, required stra ight cath last night, times one, Flomax initiated. Patient does not have any urine pressure at this time, no dysuria, we'll going to transition him to oral Lasix 20 mg twice a day as per home. completed one-time dose of Ferrlecit IV Vital signs stable, anticipate home discharge with therapy in the morning 04/05: Repeat chest x-ray reveals probable left lower lobe atelectasis and associated effusion. Patient had a Oropeza catheter reinserted for urinary retention. He has had some increase in creatinine to 1.28. Nephrology is recommending maintaining Lasix and avoid nephrotoxins. Monitor renal function and urine output. Cardiology is decreased amiodarone to 200 mg twice daily and patient to follow-up with Dr. Ames as an outpatient. He has been afebrile, heart rate 80, blood pressure 105/58, pulse ox 94% on room air. Blood sugars are currently running between 130 886. Patient is on his insulin pump. Discharge plan is to return home with home care. Anticipate discharge the next 24 hours. 04/06: Is seen today on the cardiac stepdown unit. He states he is scheduled for discharge home today but is waiting for urology to determine if he needs to continue Oropeza catheter in place at home. He has been afebrile, heart rate 83, blood pressure 125/61, pulse ox 94% on room air. Repeat blood work reveals WBC 11.3, hemoglobin 7.9, platelet count 409. Sodium 135, potassium 4.4, CO2 24, BUN 28 creatinine 1.23. Blood sugars are running 150-258. He is on his insulin pump. Repeat chest x-ray reveals basilar atelectasis possible associated effusion. Anticipate discharge home today. 04/07 patient seen today doing well. He denies any shortness of breath or chest pain. He has minimal lower extremity edema. Patient catheter was removed yesterday and was able to void. Post void residual has been ranging 400-500 mL. Patient will try to avoid this morning and if residual more than 300 mL. patient: Oropeza catheter with follow-up as outpatient with Dr. Saleh in a [facility]. Vitals are stable temperature 98.2 pulse 88 respiratory rate 18 blood pressure 129/67. Hemoglobin this morning is stable at 8.2. Creatinine stable at 1.03 glucose ranging from 124-150. PHYSICAL EXAMINATION Gen: This is a 70-year-old resting in recliner and appears to be in no acute distress. HEENT: Head is atraumatic, normocephalic. Pupils equal, round. Sclerae is anicteric. NECK: Supple. No JVD. No lymphadenopathy. No thyromegaly. LUNGS: Diminished to the bases. HEART: Regular rate and rhythm. 2/6 systolic murmur. ABDOMEN: Soft. Bowel sounds are present. No masses. No tenderness. Oropeza catheter draining clear casa urine. EXTREMITIES: Minimal pedal edema. No calf tenderness. NEUROLOGICAL: Patient is awake, alert and oriented x3. Cranial nerves 2 through 12 are grossly intact. ASSESSMENT AND PLAN 1. Status post aortic valve replacement and excision of left atrial appendage, 03/29. Continue current plan per cardiothoracic team. Patient is currently on Lipitor 40 mg daily, Plavix 75 mg daily, Lasix 20 mg twice daily, losartan 50 mg daily, Lopressor 75 mg twice daily. 2 type 1 diabetes uncontrolled with hyperglycemia. Patient has been resumed on insulin pump. 3 hypertension. Continue losartan 50 mg daily, Lopressor 75 mg 2times daily 4 hyperlipidemia: Continue patient on atorvastatin 40 mg daily. 5 history of asthma, mild intermittent: Patient seen pulmonary on regular basis and was on Pulmicort and Ventolin inhaler with continue nebulizer management as well this point. Patient is still on Singulair 10 mg a day which will be resumed. 6 hypothyroidism: Has been on levothyroxine 150 g daily resume medication. 7 severe GERD/GI prophylaxis: Continue Protonix 8 thrombocytopenia, POA. 9. Acute kidney injury. Continue to monitor renal function, avoid hypotension and nephrotoxic agents. Nephrology consult appreciated. 10. Paroxysmal atrial fibrillation. Patient is on amiodarone decreased to 200 mg twice daily, Lopressor 75 mg twice daily, eliquis 5 mg twice daily. 11. DVT prophylaxis. Eliquis. 12. Exertional dyspnea, postoperatively, could be related to symptomatic anem ia, iron infusion one-time. 13. Edema, IV Lasix when necessary to restart 20 mg twice a day oral Lasix 14. Iron deficiency anemia, precipitous drop of hemoglobin, status post iron infusion. 15. Urinary retention requiring placement of Oropeza catheter. Oropeza catheter removed yesterday. Post void residual is more than 300 catheter will be placed back again. Patient will follow with Dr. Saleh as outpatient DISCHARGE PLAN Home with [facility] today Objective - Vital Signs Vital signs: Vital Signs Temp 98.2 F 04/07/21 04:00 Pulse 88 04/07/21 04:00 Resp 18 04/07/21 04:00 BP 129/67 04/07/21 04:00 Pulse Ox 95 04/07/21 04:00 Intake & Output 04/06/21 04/06/21 04/07/21 06:59 18:59 06:59 Intake Total 240 Output Total 1800 1500 2575 Balance -6023 -4274 -8683 Weight 96.9 kg 95.9 kg Intake: Oral 240 Output: Urine 1800 1500 2575 Straight 850 Other: Voiding Method Indwelling Catheter Urinal Urinal # Voids 2 ABP, PAP, CO, CI - Last Documented Arterial Blood Pressure 104/75 Pulmonary Artery Pressure 48/25 Cardiac Output 5.1 Cardiac Index 2.4 - Labs CBC & Chem 7: 04/07/21 06:02 04/07/21 06:02 Labs: Abnormal Lab Results - Last 24 Hours (Table) 04/06/21 04/06/21 04/06/21 Range/Units 07:16 07:16 11:53 WBC 11.3 H (3.8-10.6) k/uL RBC 2.72 L (4.30-5.90) m/uL Hgb 7.9 L (13.0-17.5) gm/dL Hct 24.7 L (39.0-53.0) % Sodium 135 L (137-145) mmol/L BUN 28 H (9-20) mg/dL Glucose 190 H (74-99) mg/dL POC Glucose (mg/dL) 151 H (75-99) mg/dL Calcium 8.0 L (8.4-10.2) mg/dL 04/06/21 04/06/21 04/07/21 Range/Units 17:02 20:35 02:05 WBC (3.8-10.6) k/uL RBC (4.30-5.90) m/uL Hgb (13.0-17.5) gm/dL Hct (39.0-53.0) % Sodium (137-145) mmol/L BUN (9-20) mg/dL Glucose (74-99) mg/dL POC Glucose (mg/dL) 124 H 239 H 155 H (75-99) mg/dL Calcium (8.4-10.2) mg/dL 04/07/21 Range/Units 06:19 WBC (3.8-10.6) k/uL RBC (4.30-5.90) m/uL Hgb (13.0-17.5) gm/dL Hct (39.0-53.0) % Sodium (137-145) mmol/L BUN (9-20) mg/dL Glucose (74-99) mg/dL POC Glucose (mg/dL) 152 H (75-99) mg/dL Calcium (8.4-10.2) mg/dL
--- NOTE | 2021-04-07 09:32 | XR ---
EXAMINATION TYPE: XR chest 1V portable DATE OF EXAM: 04/07/2021 COMPARISON: Chest x-ray 04/06/2021 HISTORY: Postop aortic valve replacement TECHNIQUE: Single frontal view of the chest is obtained. FINDINGS: Patient is post median sternotomy, left atrial appendage clip placement, aortic valve repl acement. There is no evident pneumothorax. Persistent densities present at the left lung base, there is obscured left hemidiaphragm, blunting left costophrenic angle. Improved aeration noted at the righ t lung base. Cardiac mediastinal silhouette is stable. IMPRESSION: There is some improvement in aeration. Small effusion. There is associated atelectasis.
[2021-04-07] MEDS: APIXABAN 5 MG TAB PO SCH (09:48)
[2021-04-07] MEDS: AMIODARONE 200 MG TAB PO SCH (09:48)
[2021-04-07] MEDS: TAMSULOSIN 0.4 MG CAP.ER.24H PO SCH (09:48)
[2021-04-07] MEDS: CLOPIDOGREL 75 MG TAB PO SCH (09:48)
[2021-04-07] MEDS: FUROSEMIDE 20 MG TAB PO SCH (09:48)
[2021-04-07] MEDS: METOPROLOL TARTRATE 25 MG TAB PO SCH (10:02)
[2021-04-07] MEDS: LOSARTAN 50 MG TAB PO SCH (10:02)
[2021-04-07 10:08] VITALS: BP 127/71; RESP 16; TEMP 98.4
--- NOTE | 2021-04-07 10:08 | P.PN ---
Subjective Patient is seen in follow-up for acute kidney injury. Renal function stable. On oral Lasix. Oropeza catheter removed. Has been voiding on his own. Nonoliguric. No vomiting or diarrhea. Vital signs are stable. General: The patient appeared well nourished and normally developed. HEENT: Head exam is unremarkable. LUNGS: Breath sounds decreased. HEART: Rate and Rhythm are regular. ABDOMEN: Soft, no distention. EXTREMITITES: Trace edema. Objective - Vital Signs Vital signs: Vital Signs Temp 98.2 F 04/07/21 04:00 Pulse 82 04/07/21 08:10 Resp 18 04/07/21 04:00 BP 129/67 04/07/21 04:00 Pulse Ox 95 04/07/21 04:00 Intake & Output 04/06/21 04/07/21 04/07/21 18:59 06:59 18:59 Intake Total 240 240 Output Total 1500 2575 1825 Balance -6063 -1000 -6010 Weight 95.9 kg Intake: Oral 240 240 Output: Urine 1500 2575 1625 Straight 850 600 Post Void Residual 200 Other: Voiding Method Urinal Urinal # Voids 2 # Bowel Movements 1 ABP, PAP, CO, CI - Last Documented Arterial Blood Pressure 104/75 Pulmonary Artery Pressure 48/25 Cardiac Output 5.1 Cardiac Index 2.4 - Labs CBC & Chem 7: 04/07/21 06:02 04/07/21 06:02 Labs: Abnormal Lab Results - Last 24 Hours (Table) 04/06/21 04/06/21 04/06/21 Range/Units 11:53 17:02 20:35 WBC (3.8-10.6) k/uL RBC (4.30-5.90) m/uL Hgb (13.0-17.5) gm/dL Hct (39.0-53.0) % Sodium (137-145) mmol/L Glucose (74-99) mg/dL POC Glucose (mg/dL) 151 H 124 H 239 H (75-99) mg/dL Calcium (8.4-10.2) mg/dL 04/07/21 04/07/21 04/07/21 Range/Units 02:05 06:02 06:02 WBC 11.2 H (3.8-10.6) k/uL RBC 2.81 L (4.30-5.90) m/uL Hgb 8.2 L (13.0-17.5) gm/dL Hct 25.5 L (39.0-53.0) % Sodium 134 L (137-145) mmol/L Glucose 150 H (74-99) mg/dL POC Glucose (mg/dL) 155 H (75-99) mg/dL Calcium 8.1 L (8.4-10.2) mg/dL 04/07/21 Range/Units 06:19 WBC (3.8-10.6) k/uL RBC (4.30-5.90) m/uL Hgb (13.0-17.5) gm/dL Hct (39.0-53.0) % Sodium (137-145) mmol/L Glucose (74-99) mg/dL POC Glucose (mg/dL) 152 H (75-99) mg/dL Calcium (8.4-10.2) mg/dL Assessment and Plan Plan: Assessment: 1. Acute kidney injury mostly prerenal secondary to cardiorenal syndrome. Cre atinine stable at 1.23 today. 2. Hypervolemic hyponatremia. Stable. 3. Urinary retention status post Oropeza catheter placement - removed April 06. On Flomax. Urology following. 4. Status post aortic valve replacement. 5. Fluid overload. Improved with diuresis. 6. A. fib. 7. Benign hypertension. Stable. Plan: Maintain Lasix. Avoid nephrotoxins. Continue to monitor renal function and urine output. Follow-up outpatient in 1 week.
[2021-04-07 11:31] VITALS: PULSE 82
[2021-04-07 11:51] LABS: Glucose,Whole Blood 210 mg/dL (75-99)
--- NOTE | 2021-04-07 17:08 | P.DS ---
Providers Date of admission: 03/29/21 05:39 Expected date of discharge: 04/07/21 Attending physician: Clemencia Arauz Consults: 03/29/21 12:26 Consult Physician Routine Consulting Provider: Elliott Castle Consult Reason/Comments: Office System Analyst Consult: post cardiac surgery Do you want consulting provider notified?: Yes Consult Physician Routine Consulting Provider: Salvatore Wolf Consult Reason/Comments: med mgmt; Dr. Marcano patient Do you want consulting provider notified?: Yes Consult Physician Routine Consulting Provider: Genie Davey Consult Reason/Comments: Circuit Walker Consult: post cardiac surgery Do you want consulting provider notified?: Yes 03/31/21 07:13 Consult Physician Routine Consulting Provider: Fred Ordaz Consult Reason/Comments: acute kidney injury Do you want consulting provider notified?: Yes 04/05/21 07:20 Consult Physician Routine Consulting Provider: Sergei Crespo Consult Reason/Comments: urine retention Do you want consulting provider notified?: Yes Primary care physician: Skyler Marcano [facility] Course: FINAL DIAGNOSIS: 1. Aortic valve disorder with predominant aortic valve regurgitation, evidence of bicuspid aortic valve with incomplete fusion of right and non-coronary cusps, status post aortic valve replacement 2. History of hypertension 3. History of hyperlipidemia, treated, cholesterol 161, LDL 73, triglycerides 56 4. Insulin-dependent diabetes, type I with insulin pump, preoperative hemoglobin A1c 7.6% 5. Asthma with recent exacerbation treated with steroids and antibiotic, mo derate restrictive disease with preoperative FEV1 59% of predicted 6. Hypothyroid 7. GERD 8. Family history of premature coronary artery disease with father from myocardial infarction at 56 years old 9. Vaccinated with Moderna, last dose June 2020 10. Preoperative nasal screen positive for MSSA, treated 11. Postoperative acute blood loss anemia and thrombocytopenia, expected 12. Acute kidney injury, resolving 13. History of urinary retention in 2010 requiring discharge home with Oropeza catheter after a fractured pelvis injury 14. History of drop with to his right foot, status post his pelvic fracture in 2010 15. Postoperative atrial fibrillation, known common occurrence after open heart surgery, status post left atrial appendage ligation 16. Urinary retention requiring replacement of Oropeza catheter, patient has a history of urinary retention in 2010 requiring discharge home with a Oropeza catheter at that time PRINCIPAL PROCEDURE: 1. Aortic valve replacement using a 25 mm Inspiris pericardial bioprosthesis. 2. Exclusion of the left atrial appendage using a 35 mm Atriclip. 3. Intraoperative transesophageal echocardiogram. 4. Intraoperative epi-aortic scanning. HISTORY OF PRESENT ILLNESS: This is a 70-year-old gentleman who follows with Dr. Skyler Marcano [facility] primary care service on an outpatient basis. He also follows with Dr. Ames for his cardiology care. Recently, the patient has had complaints of dyspnea on exertion, and has also been complaining of having some palpitations. Due to his complaints of dyspnea on exertion underwent a transthoracic 2-D echocardiogram on 01/14/2021 which showed the left ventricle to be normal in size with borderline normal systolic function, an ejection fraction of 50-55% with moderate left ventricular hypertrophy, a trileaflet aortic valve with moderate to severe aortic valve regurgitation and mild aortic valve stenosis, mild mitral valve regurgitation and mild tricuspid valve reg urgitation. For further evaluation on 02/10/2021 the patient underwent a transesophageal echocardiogram and cardiac catheterization. The transesophageal echocardiogram demonstrated his left ventricle to be normal in size, evidence of global hypokinesia with an estimated ejection fraction of 45-50%, a trileaflet aortic valve with fibrocalcific changes and preserved opening, severe aortic valve regurgitation, mild mitral valve regurgitation and mild tricuspid valve regurgitation. His peak gradient across aortic valve is 24 mmHg and mean gradient was 15 mmHg. The patient's heart catheterization results demonstrated normal coronary arteries and 4+ aortic valve regurgitation. Subsequently, due to the patient's presenting symptoms, and findings on his above-mentioned studies a consult was placed to Dr. Clemencia Arauz from cardiothoracic surgery for further evaluation and treatment recommendations. Dr. Arauz met with the patient, discussed treatment options including aortic valve replacement surgery, discussed risks and benefits of the surgery including the STS risk score. Knowing and understanding the risk the patient wished to proceed with the surgical option. HOSPITAL COURSE: The patient was brought to the hospital on 03/29/2021, consent was obtained and the patient was prepared in the usual fashion and subsequently taken to the operating room where Dr. Clemencia Arauz performed an aortic valve replacement using a 25 mm Inspiris pericardial bioprosthesis, exclusion of the left atrial appendage using a 35 mm Atriclip, intraoperative transesophageal echocardiogram and epi-aortic scanning. Upon completion of the surgery the patient was subsequently transferred to the cardiovascular intensive care unit where he was recovered and monitored hemodynamically. He was extubated, all lines, and supportive drips were discontinued when appropriate and he was transferred to the third floor cardiac stepdown unit for further monitoring and rehabilitation. The patient did have some postoperative urinary retention requiring placement of Oropeza catheter and will subsequently be discharged home with a Oropeza catheter placed per urology's recommendation. He will follow up with urology on 04/12/2021 as scheduled. His oxygen was titrated down, he continued to work with physical and occupational therapy, he was tolerating an oral diet, his pain was well controlled and he was ready to be discharged home with clear home health care on postoperative day #9. He has received written and verbal instructions regarding his medications, activity restrictions, signs and symptoms requiring physician notification and his follow-up appointment. Postoperatively postoperatively he did have some atrial fibrillation which is a known common occurrence after cardiac surgery. He was started on Eliquis and Plavix was continued, but will not be sent home on aspirin at this time, which will be followed on an outpatient basis. Plan - Discharge Summary Discharge Rx Participant: No New Discharge Prescriptions: New Tamsulosin [Flomax] 0.4 mg PO DAILY #30 cap Apixaban [Eliquis] 5 mg PO BID #60 tab Amiodarone [Cordarone] 200 mg PO BID #20 tab Metoprolol Tartrate [Lopressor] 75 mg PO BID #180 tab Clopidogrel [Plavix] 75 mg PO DAILY #30 tab Sennosides-Docusate Sodium [Senokot-S] 2 each PO HS #14 tab Continue Montelukast Sodium [Singulair] 10 mg PO HS Atorvastatin Calcium [Lipitor] 40 mg PO HS traZODone HCL [Desyrel] 100 mg PO HS PRN PRN Reason: SLEEP Insulin Aspart (For Pump) [NovoLOG (For Pump)] 0.01 unit SQ-PUMP CONTINUOUS Levothyroxine Sodium [Synthroid] 150 mcg PO DAILY Ascorbic Acid [Vitamin C] 500 mg PO DAILY Famotidine [Pepcid] 20 mg PO BID Furosemide [Lasix] 20 mg PO BID@0900,1600 #60 tab HYDROcodone/APAP 5-325MG [[place] 5-325] 1 tab PO QID PRN PRN Reason: Pain Levalbuterol Tartrate [Levalbuterol Tartrate 45 MCG Hfa] 1 puff INHALATION RT-BID PRN PRN Reason: Shortness Of Breath Fluticasone/Vilanterol [Breo Ellipta 100-25 Mcg Inhaler] 1 puff INHALATION RT-DAILY #0 Cyclobenzaprine [Flexeril] 5 mg PO TID PRN PRN Reason: Muscle Spasm Losartan [Cozaar] 50 mg PO DAILY #30 tab Discontinued Albuterol Sulfate [Proair Hfa] 2 puff INHALATION RT-Q6H PRN PRN Reason: Shortness Of Breath Aspirin EC [Ecotrin Low Dose] 81 mg PO DAILY Budesonide [Pulmicort] 1 mg INHALATION RT-BID PRN PRN Reason: Shortness Of Breath Metoprolol Tartrate [Lopressor] 25 mg PO BID #60 tab Mupirocin [Mupirocin 2%] 1 applic NASAL BID #1 tub Discharge Medication List Atorvastatin Calcium [Lipitor] 40 mg PO HS 12/16/13 [History] Montelukast Sodium [Singulair] 10 mg PO HS 12/16/13 [History] traZODone HCL [Desyrel] 100 mg PO HS PRN 09/26/14 [History] Insulin Aspart (For Pump) [NovoLOG (For Pump)] 0.01 unit SQ-PUMP CONTINUOUS 02/06/17 [History] Levothyroxine Sodium [Synthroid] 150 mcg PO DAILY 02/06/17 [History] Ascorbic Acid [Vitamin C] 500 mg PO DAILY 11/24/20 [History] Famotidine [Pepcid] 20 mg PO BID 11/24/20 [History] HYDROcodone/APAP 5-325MG [[place] 5-325] 1 tab PO QID PRN 11/24/20 [History] Levalbuterol Tartrate [Levalbuterol Tartrate 45 MCG Hfa] 1 puff INHALATION RT- BID PRN 02/07/21 [History] Fluticasone/Vilanterol [Breo Ellipta 100-25 Mcg Inhaler] 1 puff INHALATION RT- DAILY #0 02/10/21 [Rx] Cyclobenzaprine [Flexeril] 5 mg PO TID PRN 03/11/21 [History] Tamsulosin [Flomax] 0.4 mg PO DAILY #30 cap 04/06/21 [Rx] Amiodarone [Cordarone] 200 mg PO BID #20 tab 04/07/21 [Rx] Apixaban [Eliquis] 5 mg PO BID #60 tab 04/07/21 [Rx] Clopidogrel [Plavix] 75 mg PO DAILY #30 tab 04/07/21 [Rx] Furosemide [Lasix] 20 mg PO BID@0900,1600 #60 tab 04/07/21 [Rx] Losartan [Cozaar] 50 mg PO DAILY #30 tab 04/07/21 [Rx] Metoprolol Tartrate [Lopressor] 75 mg PO BID #180 tab 04/07/21 [Rx] Sennosides-Docusate Sodium [Senokot-S] 2 each PO HS #14 tab 04/07/21 [Rx] Follow up Appointment(s)/Referral(s): Hardeep Ames MD [STAFF PHYSICIAN] - 04/19/21 2:00 pm [facility] [NON-STAFF] - 4 Weeks (You will be called in approximately 4-6 weeks for evaluation for cardiac rehab) Clemencia Arauz MD [STAFF PHYSICIAN] - 04/30/21 10:00 am Sergei Crespo MD [STAFF PHYSICIAN] - 04/12/21 8:00 am Yoav Cason NPC [Nurse Practitioner] - 04/13/21 11:45 am (Please follow-up in the office located at [address] [place] [address], [facility]. Office number is [phone]) Sid Mcdonald DO [Doctor of Osteopathic Medicine] - 04/21/21 10:15 am [facility], [NON-STAFF] - 1-2 Days Skyler Marcano MD [Primary Care Provider] - 04/15/21 3:30 pm Ambulatory/Diagnostic Orders: Complete Blood Count w/diff [LAB.AMB] Time Frame: 04/10/21, Facility: [facility], Location: Laboratory [facility] Comprehensive Metabolic Panel [LAB.AMB] Time Frame: 04/10/21, Facility: [facility], Location: [facility] Activity/Diet/Wound Care/Special Instructions: DISCHARGE INSTRUCTIONS: 1. No driving for 4 weeks, or until physician gives their ok. 2. The patient should sleep in their own bed, no medical bed needed. 3. Stairs are not an issue. If the bedroom is upstairs, it is advised that the patient go up at night and down in the morning for the first week. Go slowly, using handrail and take 1 step at a time. 4. BUSHRA hose are to be worn for 30 days or until physician discontinues. 5. Heart hugger is to be worn 100% of the time until physician discontinues.(except when showering) 6. No lifting, pushing, or pulling more than 10 pounds for 12 weeks. The physician will advise of any restriction changes. 7. The patient is expected to continue the prescribed walking program. 8. Continue pain control per as needed orders. 9. Continue with incentive spirometry and splinting/heart hugger until otherwise directed by the physician. 10. Must shower daily using liquid antibacterial soap and a separate white washcloth for each individual incision. 11. Routine sternal incision care. No powders, lotions, ointments on incisions. No dressings are necessary on incisions unless they are draining. Dermabond tape is to remain on sternal incision until surgeon follow-up. 12. Please call surgeon/STRAPPER AND BUFFER for temp greater than 101 F or purulent drainage from incisions. 13. All prescriptions given by surgeon for 30 days. Refills need to be filled through college or university faculty member/primary care physician. 14. A Red armband has been placed on the patient. It should be worn for 30 days post surgery and will be removed by the cardiac surgeons. If an ER visit is necessary, please make sure the number on the Red armband is called. 15. You have been referred to and are expected to begin Cardiac Rehab in approximately 4-6 weeks. 16. You are being discharged home with a Oropeza catheter in place, routine Oropeza catheter care per instructions from urology and nursing staff. Follow-up with urology as scheduled on an outpatient basis. 17. Please keep a record of your blood sugars before meals and at bedtime and bring your blood sugar results to your follow-up appointment. HOME HEALTH SERVICES TO PROVIDE: RN SKILLED HOME CARE SERVICES FOR POST-OP SURGICAL PATIENTS WITH THE FOLLOWING: Coronary Artery Bypass Surgery (CABG), Mitral Valve Replacement/Repair ( MVR), Aortic Valve Replacement/Repair (AVR) RN TO CONTINUE EDUCATION FROM ``ROAD TO A HEALTH HEART PATIENT EDUCATION MANUAL (GIVEN TO PATIENT IN THE HOSPITAL) MEDICATION RECONCILIATION WITH EDUCATION NEEDED ON FIRST HOME VISIT EMPHASIZE IMPORTANCE OF WEARING BREAST SUPPORT/HEART HUGGER ENCOURAGE USE OF INCENTIVE SPIROMETER 10 X EVERY HOUR WHILE AWAKE ENCOURAGE UTILIZATION OF LOWER EXTREMITY COMPRESSION STOCKINGS/BUSHRA HOSE and ELEVATE LEGS ABOVE LEVEL OF HEART WHILE AT REST. ENCOURAGE AMBULATION 3-5x/day INCREASING TOLERATES, WHILE AVOIDING EXTREMES IN TEMPERATURE FREQUENCY: RN TO OPEN THE PATIENT WITHIN 24 HOURS OF DISCHARGE FROM THE HOSPITAL WITH TELEHEALTH INSTALLED AT [facility], RN TO VISIT 2-3 X A WEEK FOR 4 WEEKS ESTABLISHED BY PATIENT NEEDS. LABORATORY: CBC, CMP TO BE DRAWN ON THE THIRD DAY HOME, (RAN STAT) FAX RESULTS TO [phone]. TELEHEALTH PARAMETERS: WEIGHT: NOTIFY MD OF WEIGHT GAIN OF 2 LBS IN 24 HOURS OR 5 LBS IN ONE WEEK HR: NOTIFY MD OF HR <55 BPM OR HR>100 BPM BP: NOTIFY MD IF BP <90/55 OR BP>140/100 O2 SAT: NOTIFY MD IF PO2<93% ON ROOM AIR SEND TELEHEALTH REPORT TO SECURITY BUSINESS ANALYST AND CARDIOVASCULAR SURGEON THE FIRST WEEK OF CARE AND THEN BI-WEEKLY. PLEASE ADDITIONALLY COMMUNICATE ANY ABNORMALS AND NEW FINDINGS TO THE SURGEONS OFFICE. Discharge Disposition: HOME WITH HOME HEALTH SERVICES
== END 2021-04-07 14:52 | disposition home health service (06) | DRG 219 ==
LOC: 2ORMAIN 03-29 05:39 → 2SICU 03-29 12:13 → 3SCARD 04-02 18:07
PROVIDERS: ADMIT Surgery; ATTEND Surgery
PROC: 5A1221Z Performance of Cardiac Output, Continuous (ICD-10-PCS; 2021-03-29)
PROC: 02L70CK Occlusion of Left Atrial Appendage with Extraluminal Device, Open Approach (ICD-10-PCS; 2021-03-29)
PROC: 02RF08Z Replacement of Aortic Valve with Zooplastic Tissue, Open Approach (ICD-10-PCS; principal; 2021-03-29 08:00)
PROC: B246ZZ4 Ultrasonography of Right and Left Heart, Transesophageal (ICD-10-PCS; 2021-03-29 08:00)
DX: Q23.1 Congenital insufficiency of aortic valve (principal); N17.0 Acute kidney failure with tubular necrosis; D62 Acute posthemorrhagic anemia; E87.1 Hypo-osmolality and hyponatremia; E87.2 Acidosis; J90 Pleural effusion, not elsewhere classified; J98.11 Atelectasis; D50.9 Iron deficiency anemia, unspecified; D69.6 Thrombocytopenia, unspecified; E03.9 Hypothyroidism, unspecified; E10.65 Type 1 diabetes mellitus with hyperglycemia; E10.22 Type 1 diabetes mellitus with diabetic chronic kidney disease; E78.5 Hyperlipidemia, unspecified; E87.70 Fluid overload, unspecified; I48.0 Paroxysmal atrial fibrillation; I49.3 Ventricular premature depolarization; J45.20 Mild intermittent asthma, uncomplicated; N18.9 Chronic kidney disease, unspecified; I13.10 Hypertensive heart and chronic kidney disease without heart failure, with stage 1 through stage 4 chronic kidney disease, or unspecified chronic kidney disease; K21.9 Gastro-esophageal reflux disease without esophagitis; Z20.822 Contact with and (suspected) exposure to COVID-19; T39.395A Adverse effect of other nonsteroidal anti-inflammatory drugs [NSAID], initial encounter; Z79.01 Long term (current) use of anticoagulants; Z79.02 Long term (current) use of antithrombotics/antiplatelets; Z79.4 Long term (current) use of insulin; Z79.82 Long term (current) use of aspirin; Z79.890 Hormone replacement therapy; Z79.899 Other long term (current) drug therapy; Z80.1 Family history of malignant neoplasm of trachea, bronchus and lung; Z82.0 Family history of epilepsy and other diseases of the nervous system; Z82.49 Family history of ischemic heart disease and other diseases of the circulatory system; Z82.5 Family history of asthma and other chronic lower respiratory diseases; Z96.41 Presence of insulin pump (external) (internal); Z87.81 Personal history of (healed) traumatic fracture; R33.9 Retention of urine, unspecified; B95.61 Methicillin susceptible Staphylococcus aureus infection as the cause of diseases classified elsewhere
CPT/HCPCS: 71045; 71046; 80048; 80053; 82330; 82805; 83540; 83550; 83735; 85025; 85027; 85520; 85610; 85730; 86850; 86891; 86900; 86901; 86920; 87635; 88305; 88311; 94640

== ENCOUNTER → 2021-03-25 | Outpatient (CLI) | payer BC, MEDICARE ==
[2021-03-25 10:13] LABS: HCT 41.8 % (39.0-53.0); HGB 13.2 gm/dL (13.0-17.5); MCHC 31.7 g/dL (31.0-37.0); MCV 91.4 fL (80.0-100.0); Mean Platelet Volume 7.6; Platelet Count 239 k/uL (150-450); RBC 4.57 m/uL (4.30-5.90); RDW 13.4 % (11.5-15.5); WBC 9.2 k/uL (3.8-10.6)
[2021-03-25 10:26] LABS: ALT 23 U/L (4-49); AST 21 U/L (17-59); African American GFR (CKD) 86 (>60 ml/min/1.73 sqM); Albumin 3.5 g/dL (3.5-5.0); Alkaline Phosphatase 56 U/L (38-126); Anion Gap 3 mmol/L; Blood Urea Nitrogen 21 mg/dL (9-20); Calcium 9.1 mg/dL (8.4-10.2); Carbon Dioxide 30 mmol/L (22-30); Chloride 104 mmol/L (98-107); Glucose 113 mg/dL (74-99); Non-African American GFR(CKD) 75 (>60 ml/min/1.73 sqM); Sodium 137 mmol/L (137-145); Total Bilirubin 0.5 mg/dL (0.2-1.3); Total Protein 6.2 g/dL (6.3-8.2)
== END | disposition home or self-care (01) ==
LOC: LABPAT 09:01
PROVIDERS: ATTEND Surgery
DX: I35.0 Nonrheumatic aortic (valve) stenosis (principal)
CPT/HCPCS: 36415; 80053; 84439; 84443; 85027; 94150

== ENCOUNTER → 2021-06-03 | Outpatient (CLI) | payer MEDICARE ==
[2021-06-03 23:52] LABS: ALT 22 U/L (10-49); AST 15 U/L (14-35); African American GFR (CKD) 71.6 (60.0-200.0); Albumin 3.8 g/dL (3.8-4.9); Albumin/Globulin Ratio 1.31 (1.60-3.17); Alkaline Phosphatase 100 U/L (41-126); BUN/Creat Ratio 16.08 Ratio (12.00-20.00); Blood Urea Nitrogen 19.3 mg/dL (9.0-27.0); Carbon Dioxide 22.7 mmol/L (20.0-27.5); Chloride 103 mmol/L (96-109); Chol/HDL Ratio 2.27 Ratio; Globulin 2.9 g/dL (1.6-3.3); Glucose 170 mg/dL (70-110); LDL Cholesterol,Calculated 64.6 mg/dL (0.0-131.0); Non-African American GFR(CKD) 61.8 (60.0-200.0); Potassium 4.1 mmol/L (3.5-5.5); Sodium 138 mmol/L (135-145); Total Bilirubin <0.20 mg/dL (0.30-1.20); Total Protein 6.7 g/dL (6.2-8.2); VLDL Calculation 12.14 mg/dL (5.00-40.00)
== END | disposition home or self-care (01) ==
LOC: LABWHC1 13:27
PROVIDERS: ATTEND Internal Medicine Interventional Cardiology
DX: E78.2 Mixed hyperlipidemia (principal)
CPT/HCPCS: 36415; 80053; 80061

== ENCOUNTER → 2021-07-27 | Outpatient (CLI) | payer MEDICARE ==
[2021-07-27 11:39] LABS: ALT 21 U/L (10-49); AST 17 U/L (14-35); African American GFR (CKD) 89.2 (60.0-200.0); Albumin 3.9 g/dL (3.8-4.9); Albumin/Globulin Ratio 1.39 (1.60-3.17); Alkaline Phosphatase 96 U/L (41-126); Blood Urea Nitrogen 18.5 mg/dL (9.0-27.0); Calcium 8.9 mg/dL (8.7-10.3); Carbon Dioxide 23.2 mmol/L (20.0-27.5); Chloride 106 mmol/L (96-109); Chol/HDL Ratio 2.42 Ratio; Globulin 2.8 g/dL (1.6-3.3); Glucose 166 mg/dL (70-110); LDL Cholesterol,Calculated 66.2 mg/dL (0.0-131.0); Potassium 4.7 mmol/L (3.5-5.5); Sodium 140 mmol/L (135-145); Total Protein 6.7 g/dL (6.2-8.2); VLDL Calculation 11.88 mg/dL (5.00-40.00)
[2021-07-27 19:28] LABS: Microalbumin Creatinine Ratio <30 mg/g Creat (0-30)
== END | disposition home or self-care (01) ==
LOC: LABWHC1 07:15
PROVIDERS: ATTEND Internal Medicine Endocrinology, Diabetes & Metabolism
DX: E10.65 Type 1 diabetes mellitus with hyperglycemia (principal)
CPT/HCPCS: 36415; 80053; 80061; 82043; 82570; 83036; 84443

== ENCOUNTER → 2021-09-17 | Outpatient (CLI) | payer MEDICARE ==
[2021-09-17 11:26] LABS: ALT 25 U/L (10-49); AST 18 U/L (14-35); African American GFR (CKD) 89.2 (60.0-200.0); Albumin 3.9 g/dL (3.8-4.9); Albumin/Globulin Ratio 1.39 (1.60-3.17); Alkaline Phosphatase 94 U/L (41-126); Blood Urea Nitrogen 19.6 mg/dL (9.0-27.0); Calcium 8.7 mg/dL (8.7-10.3); Carbon Dioxide 25.1 mmol/L (20.0-27.5); Chloride 103 mmol/L (96-109); Chol/HDL Ratio 2.38 Ratio; Globulin 2.8 g/dL (1.6-3.3); Glucose 205 mg/dL (70-110); LDL Cholesterol,Calculated 82.2 mg/dL (0.0-131.0); Potassium 4.9 mmol/L (3.5-5.5); Sodium 138 mmol/L (135-145); Total Protein 6.7 g/dL (6.2-8.2); VLDL Calculation 13.54 mg/dL (5.00-40.00)
== END | disposition home or self-care (01) ==
LOC: LABWHC1 08:02
PROVIDERS: ATTEND Internal Medicine Interventional Cardiology
DX: E78.2 Mixed hyperlipidemia (principal)
CPT/HCPCS: 36415; 80053; 80061

== ENCOUNTER → 2022-01-21 | Outpatient (CLI) | payer MEDICARE ==
[2022-01-21 18:41] LABS: ALT 25 U/L (10-49); AST 17 U/L (14-35); Albumin 3.8 g/dL (3.8-4.9); Albumin/Globulin Ratio 1.81 (1.60-3.17); Alkaline Phosphatase 76 U/L (41-126); BUN/Creat Ratio 14.91 Ratio (12.00-20.00); Blood Urea Nitrogen 16.4 mg/dL (9.0-27.0); Calcium 8.9 mg/dL (8.7-10.3); Carbon Dioxide 29.5 mmol/L (20.0-27.5); Chloride 102 mmol/L (96-109); Chol/HDL Ratio 2.14 Ratio; Globulin 2.1 g/dL (1.6-3.3); Glucose 212 mg/dL (70-110); LDL Cholesterol,Calculated 61.4 mg/dL (0.0-131.0); Non-African American GFR(CKD) 68.1 (60.0-200.0); Sodium 138 mmol/L (135-145); Total Protein 5.9 g/dL (6.2-8.2); VLDL Calculation 10.62 mg/dL (5.00-40.00)
[2022-01-21 23:06] LABS: Microalbumin Creatinine Ratio <30 mg/g Creat (0-30); Urine Creatinine 57.4 mg/dL (39.0-259.0)
== END | disposition home or self-care (01) ==
LOC: LABWHC1 09:16
PROVIDERS: ATTEND Internal Medicine Endocrinology, Diabetes & Metabolism
DX: E10.65 Type 1 diabetes mellitus with hyperglycemia (principal)
CPT/HCPCS: 36415; 80053; 80061; 82043; 82570; 83036; 84443

== ENCOUNTER → 2022-02-14 | Outpatient (CLI) | payer MEDICARE | END | disposition home or self-care (01) | LOC: LABWHC1 10:35 | PROVIDERS: ATTEND Family Medicine | DX: Z12.5 Encounter for screening for malignant neoplasm of prostate (principal) | CPT/HCPCS: 36415; G0103 ==

== ENCOUNTER → 2022-03-23 | Outpatient (CLI) | payer MEDICARE ==
[2022-03-23 15:37] LABS: ALT 24 U/L (10-49); AST 25 U/L (14-35); African American GFR (CKD) 71.1 (60.0-200.0); Albumin 3.9 g/dL (3.8-4.9); Albumin/Globulin Ratio 1.39 (1.60-3.17); Alkaline Phosphatase 74 U/L (41-126); Blood Urea Nitrogen 19.2 mg/dL (9.0-27.0); Calcium 9.3 mg/dL (8.7-10.3); Carbon Dioxide 27.5 mmol/L (20.0-27.5); Chloride 103 mmol/L (96-109); Chol/HDL Ratio 2.53 Ratio; Globulin 2.8 g/dL (1.6-3.3); Glucose 229 mg/dL (70-110); LDL Cholesterol,Calculated 79.8 mg/dL (0.0-131.0); Non-African American GFR(CKD) 61.3 (60.0-200.0); Potassium 4.7 mmol/L (3.5-5.5); Sodium 139 mmol/L (135-145); Total Protein 6.7 g/dL (6.2-8.2); VLDL Calculation 16.34 mg/dL (5.00-40.00)
== END | disposition home or self-care (01) ==
LOC: LABWHC1 08:11
PROVIDERS: ATTEND Nurse Practitioner Adult Health
DX: I10 Essential (primary) hypertension (principal); E78.2 Mixed hyperlipidemia
CPT/HCPCS: 36415; 80053; 80061

== ENCOUNTER → 2022-09-09 | Outpatient (CLI) | payer MEDICARE ==
[2022-09-09 12:13] LABS: ALT 22 U/L (10-49); AST 20 U/L (14-35); Albumin 4.2 g/dL (3.8-4.9); Albumin/Globulin Ratio 1.62 (1.60-3.17); Alkaline Phosphatase 90 U/L (41-126); BUN/Creat Ratio 13.82 Ratio (12.00-20.00); Blood Urea Nitrogen 15.2 mg/dL (9.0-27.0); Calcium 9.9 mg/dL (8.7-10.3); Carbon Dioxide 27.4 mmol/L (20.0-27.5); Chloride 104 mmol/L (96-109); Chol/HDL Ratio 3.19 Ratio; Globulin 2.6 g/dL (1.6-3.3); Glucose 187 mg/dL (70-110); LDL Cholesterol,Calculated 134.2 mg/dL (0.0-131.0); Non-African American GFR(CKD) 68.1 (60.0-200.0); Potassium 5.3 mmol/L (3.5-5.5); Sodium 140 mmol/L (135-145); Total Protein 6.8 g/dL (6.2-8.2); VLDL Calculation 14.82 mg/dL (5.00-40.00)
== END | disposition home or self-care (01) ==
LOC: LABWHC1 06:59
PROVIDERS: ATTEND Internal Medicine Endocrinology, Diabetes & Metabolism
DX: E10.65 Type 1 diabetes mellitus with hyperglycemia (principal)
CPT/HCPCS: 36415; 80053; 80061; 82043; 82570; 83036; 84443

== ENCOUNTER → 2022-09-29 | Outpatient (CLI) | payer MEDICARE ==
[2022-09-29 11:08] LABS: ALT 18 U/L (10-49); AST 18 U/L (14-35); Chol/HDL Ratio 2.11 Ratio; LDL Cholesterol,Calculated 36.7 mg/dL (0.0-131.0)
== END | disposition home or self-care (01) ==
LOC: LABWHC1 07:00
PROVIDERS: ATTEND Nurse Practitioner Adult Health
DX: E78.2 Mixed hyperlipidemia (principal)
CPT/HCPCS: 36415; 80061; 84450; 84460

== ENCOUNTER → 2023-03-16 | Outpatient (CLI) | payer MEDICARE ==
[2023-03-16 16:25] LABS: ALT 24 U/L (10-49); AST 19 U/L (14-35); Albumin/Globulin Ratio 1.74 Ratio (1.60-3.17); Alkaline Phosphatase 81 U/L (41-126); Blood Urea Nitrogen 18.5 mg/dL (9.0-27.0); Calcium 9.4 mg/dL (8.7-10.3); Carbon Dioxide 25.9 mmol/L (21.6-31.8); Chloride 104 mmol/L (96-109); Chol/HDL Ratio 2.16 Ratio; Globulin 2.3 d/dL (1.6-3.3); Glucose 158 mg/dL (70-110); LDL Cholesterol,Calculated 56.4 mg/dL (0.0-131.0); Potassium 5.4 mmol/L (3.5-5.5); Sodium 141 mmol/L (135-145); Total Bilirubin 0.2 mg/dL (0.3-1.2); Total Protein 6.3 d/dL (6.2-8.2)
[2023-03-16 18:01] LABS: Microalbumin Creatinine Ratio <8 mg/g Cr (0-30)
== END | disposition home or self-care (01) ==
LOC: LABWHC1 07:57
PROVIDERS: ATTEND Internal Medicine Interventional Cardiology
DX: I10 Essential (primary) hypertension (principal); E10.65 Type 1 diabetes mellitus with hyperglycemia; E78.2 Mixed hyperlipidemia
CPT/HCPCS: 36415; 80053; 80061; 82043; 82570; 83036; 84443

== ENCOUNTER → 2023-07-13 | Outpatient (CLI) | payer MEDICARE ==
[2023-07-13 16:15] LABS: ALT 20 U/L (10-49); AST 15 U/L (14-35); Albumin/Globulin Ratio 1.67 Ratio (1.60-3.17); Alkaline Phosphatase 69 U/L (41-126); Blood Urea Nitrogen 22.8 mg/dL (9.0-27.0); Calcium 9.2 mg/dL (8.7-10.3); Carbon Dioxide 29.6 mmol/L (21.6-31.8); Chloride 101 mmol/L (96-109); Chol/HDL Ratio 1.94 Ratio; Globulin 2.4 g/dL (1.6-3.3); Glucose 123 mg/dL (70-110); LDL Cholesterol,Calculated 59.3 mg/dL (0.0-131.0); Sodium 140 mmol/L (135-145); Total Bilirubin 0.3 mg/dL (0.3-1.2); Total Protein 6.4 g/dL (6.2-8.2)
[2023-07-13 21:18] LABS: Microalbumin Creatinine Ratio <13 mg/g Cr (0-30); Urine Creatinine 91.1 mg/dL (39.0-259.0)
== END | disposition home or self-care (01) ==
LOC: LABWHC1 07:29
PROVIDERS: ATTEND Internal Medicine Endocrinology, Diabetes & Metabolism
DX: Z12.5 Encounter for screening for malignant neoplasm of prostate (principal); E10.65 Type 1 diabetes mellitus with hyperglycemia
CPT/HCPCS: 80061; 80053; 84443; 82043; 82570; 83036; 36415; G0103

== ENCOUNTER 2023-07-22 14:28 | Emergency (ER) | payer MEDICARE ==
[2023-07-22 14:51] VITALS: TEMP 97.8
--- NOTE | 2023-07-22 14:55 | ED ---
General Adult HPI - General Chief complaint: Shortness of Breath Stated complaint: ESTUARDO Time Seen by Provider: 07/22/23 14:49 Source: patient Mode of arrival: ambulatory Limitations: no limitations - History of Present Illness Initial comments: Patient presents to the ED with his for evaluation. Patient states that he has had an upper respiratory infection for the past 3 weeks or so, with symptoms of cough and congestion. Patient states that he was initially treated with a Z- Polo by his primary care provider, and he was just recently started on a course of cefuroxime, which he is still taking. Patient states he was also treated with a 2-week course of prednisone, which he completed about a week ago. Patient states that he has a history of asthma, and he states that he has been using his nebulizer machine with some relief. Patient states that he has felt more dyspneic than normal today. Patient denies having any pain. Patient denies fever or chills, headache, focal numbness/weakness/neuro deficit, chest pain or pressure, hemoptysis, palpitations, dizziness, nausea/vomiting/diaphoresis, abdominal pain, diarrhea, bloody or melanotic stool, dysuria or urinary symptoms, decreased urine output, leg or calf swelling or pain, or any other symptoms or complaints. - Related Data Home Medications Medication Instructions Recorded Confirmed Atorvastatin Calcium [Lipitor] 40 mg PO HS 12/16/13 03/25/21 Montelukast Sodium [Singulair] 10 mg PO HS 12/16/13 03/25/21 traZODone HCL [Desyrel] 100 mg PO HS PRN 09/26/14 03/25/21 Insulin Aspart (For Pump) [NovoLOG 0.01 unit SQ-PUMP CONTINUOUS 02/06/17 03/25/21 (For Pump)] Levothyroxine Sodium [Synthroid] 150 mcg PO DAILY 02/06/17 03/25/21 Ascorbic Acid [Vitamin C] 500 mg PO DAILY 11/24/20 03/25/21 Famotidine [Pepcid] 20 mg PO BID 11/24/20 03/25/21 HYDROcodone/APAP 5-325MG [Colbert 1 tab PO QID PRN 11/24/20 03/25/21 5-325] Levalbuterol Tartrate 1 puff INHALATION RT-BID PRN 02/07/21 03/25/21 [Levalbuterol Tartrate 45 MCG Hfa] Cyclobenzaprine [Flexeril] 5 mg PO TID PRN 03/11/21 03/25/21 Previous Rx's Medication Instructions Recorded Fluticasone/Vilanterol [Breo 1 puff INHALATION RT-DAILY #0 02/10/21 Ellipta 100-25 Mcg Inhaler] Tamsulosin [Flomax] 0.4 mg PO DAILY #30 cap 04/06/21 Amiodarone [Cordarone] 200 mg PO BID #20 tab 04/07/21 Apixaban [Eliquis] 5 mg PO BID #60 tab 04/07/21 Clopidogrel [Plavix] 75 mg PO DAILY #30 tab 04/07/21 Furosemide [Lasix] 20 mg PO BID@0900,1600 #60 tab 04/07/21 Losartan [Cozaar] 50 mg PO DAILY #30 tab 04/07/21 Metoprolol Tartrate [Lopressor] 75 mg PO BID #180 tab 04/07/21 Sennosides-Docusate Sodium 2 each PO HS #14 tab 04/07/21 [Senokot-S] predniSONE [Deltasone] 20 mg PO BID #10 tab 07/22/23 Allergies Allergy/AdvReac Type Severity Reaction Status Date / Time aspirin AdvReac Unknown Rash/Hives Verified 07/22/23 14:43 Review of Systems ROS Statement: Those systems with pertinent positive or pertinent negative responses have been documented in the HPI. ROS Other: All systems not noted in ROS Statement are negative. Past Medical History Past Medical History: Asthma, Diabetes Mellitus, Hyperlipidemia, Hypertension, Skin Disorder, Thyroid Disorder Additional Past Medical History / Comment(s): Other HX: Moderate persistant asthma, IDDM type I- insulin pump and subcutaneous diabetic sensor, hypothyroidism, vitiligo for 17 years, seasonal allergic rhinitis, right foot drop secondary to pelvic fracture History of Any Multi-Drug Resistant Organisms: None Reported Past Surgical History: Orthopedic Surgery Additional Past Surgical History / Comment(s): reconstruction of pelvis (Feb 2011), bilateral hands tendon release in fingers (2002), Arthoscopic in right knee (1996), steel rodrigo in great toe of right foot (1997), bilateral arthroscopic elbow surgery, left elbow radial nerve release. Past Anesthesia/Blood Transfusion Reactions: Postoperative Nausea & Vomiting (PONV) Additional Past Anesthesia/Blood Transfusion Reaction / Comment(s): Only after the tendon release in fingers Past Psychological History: No Psychological Hx Reported Smoking Status: Never smoker Past Alcohol Use History: None Reported Past Drug Use History: None Reported - Past Family History Father Family Medical History: Myocardial Infarction ([place]) Additional Family Medical History / Comment(s): had in 1972 Mother Family Medical History: Asthma, Cancer, Thyroid Disorder Additional Family Medical History / Comment(s): lung cancer (diagnosed when she was 79) Brother(s) Family Medical History: CVA/TIA, Neurologic Disorder Additional Family Medical History / Comment(s): parkinson's disease, subdural hematoma. Brother is . Sister(s) Family Medical History: No Reported History Daughter(s) Family Medical History: No Reported History Son(s) Family Medical History: No Reported History General Exam Limitations: no limitations General appearance: alert, in no apparent distress Eye exam: Present: normal appearance, other (Right subconjunctival hemorrhage) ENT exam: Present: normal oropharynx, mucous membranes moist Neck exam: Present: other (Trachea is in midline). Absent: tenderness, meningismus Respiratory exam: Present: other (bilateral expiratory wheezes bilaterally). Absent: respiratory distress, rales, rhonchi, stridor Cardiovascular Exam: Present: regular rate, normal rhythm, normal heart sounds, other (Normal radial pulses bilaterally) GI/Abdominal exam: Present: soft. Absent: distended, tenderness, guarding Extremities exam: Present: other (Negative Homans' sign bilaterally). Absent: tenderness, pedal edema, calf tenderness Neurological exam: Present: alert, oriented X3 Psychiatric exam: Present: normal affect Skin exam: Present: warm, dry, normal color Course Vital Signs 07/22/23 07/22/23 07/22/23 14:39 15:04 15:39 Temperature 97.8 F Pulse Rate 104 H 83 Respiratory 22 24 18 Rate Blood Pressure 155/75 142/98 O2 Sat by Pulse 97 98 Oximetry 07/22/23 07/22/23 07/22/23 15:57 16:03 17:14 Temperature Pulse Rate 85 84 75 Respiratory 18 Rate Blood Pressure 140/88 O2 Sat by Pulse 97 Oximetry - Reevaluation(s) Reevaluation #1: 07/22/23 17:18 Patient remains alert and breathing comfortably. Patient reports improvement with the DuoNeb treatment that he was given in the ED and his wheezing has improved on exam. Patient and are aware of the patient's test results, and they both feel comfortable with the patient being discharged home at this time. They were counseled about upper respiratory infections and asthma exacerbations. Patient was advised to complete the course of antibiotics that he was started on by his primary care provider. Patient was clearly explained return and follow-up instructions. Patient was instructed to follow-up closely with his primary care provider. EKG Findings - EKG Comments: EKG Findings:: ED physician interpretation (interpreted by me): Normal sinus rhythm, ventricular rate of 64 bpm, normal OH and QRS intervals, normal QT interval, normal axis, no ST or T wave abnormality Medical Decision Making - Medical Decision Making Was pt. sent in by a medical professional or institution (, MELISSA, DERRICK BOAT LEVER OPERATOR, urgent care, hospital, or shelter...) When possible be specific @ -No Did you speak to anyone other than the patient for history (EMS, parent, family, police, friend...)? What history was obtained from this source @ -No Did you review nursing and triage notes (agree or disagree)? Why? @ -I reviewed and agree with nursing and triage notes Were old charts reviewed (outside hosp., previous admission, EMS record, old EKG, old radiological studies, urgent care reports/EKG's, shelter records)? Report findings @ -No old charts were reviewed Differential Diagnosis (chest pain, altered mental status, abdominal pain women, abdominal pain men, vaginal bleeding, weakness, fever, dyspnea, syncope, headache, dizziness, GI bleed, back pain, seizure, CVA, palpatations, mental health, musculoskeletal)? @ -Differential Dyspnea: Coronary syndrome, arrhythmia, tamponade, asthma, COPD, pulmonary edema, pneumonia, pneumothorax, pulmonary effusion, bronchospasm, bronchitis, URI, [place] VID-19, influenza, RSV, anemia, neuromuscular, this is not meant to be an all- inclusive list. EKG interpreted by me (3pts min.). @ -As above X-rays interpreted by me (1pt min.). @ -Chest x-ray was reviewed myself and shows no acute process. I agree with the radiologist's interpretation as above. CT interpreted by me (1pt min.). @ -None done U/S interpreted by me (1pt. min.). @ -None done What testing was considered but not performed or refused? (CT, X-rays, U/S, labs)? Why? @ -None What meds were considered but not given or refused? Why? @ -None Did you discuss the management of the patient with other professionals (professionals i.e. DrRobyn, PA, DERRICK BOAT LEVER OPERATOR, lab, RT, psych nurse, director social welfare, wax pourer, teacher, hazard mitigation officer, shelter case manager)? Give summary @ -No Was smoking cessation discussed for >3mins.? @ -No Was critical care preformed (if so, how long)? @ -No Were there social determinants of health that impacted care today? How? (Homelessness, low income, unemployed, alcoholism, drug addiction, transportation, low edu. Level, literacy, decrease access to med. care, care home, rehab)? @ -No Was there de-escalation of care discussed even if they declined (Discuss DNR or withdrawal of care, Hospice)? DNR status @ -No What co-morbidities impacted this encounter? (DM, HTN, Smoking, COPD, CAD, Cancer, CVA, ARF, Chemo, Hep., AIDS, mental health diagnosis, sleep apnea, morbid obesity)? @ -Asthma Was patient admitted / discharged? Hospital course, mention meds given and route, prescriptions, significant lab abnormalities, going to OR and other pertinent info. @ -Patient's wheezing/dyspnea has improved with the DuoNeb treatment in the ED. patient's cardiac enzymes are within normal limits. Patient's chest x-ray is negative for findings of pneumonia. Patient is afebrile and without leukocytosis. Patient's viral studies are all negative. I suspect that the patient's symptoms are likely secondary to URI exacerbation of his asthma. Will start the patient on another short course of prednisone. Patient was instructed to complete the course of cefuroxime that he was prescribed by his primary care provider. Patient was also instructed to continue using his nebulizer machine at home as needed/as prescribed. Patient was provided with strict return instructions. Will discharge patient home with his at this time. Patient feels comfortable with this plan. Undiagnosed new problem with uncertain prognosis? @ -No Drug Therapy requiring intensive monitoring for toxicity (Heparin, Nitro, Insulin, Cardizem)? @ -No Were any procedures done? @ -No Diagnosis/symptom? @ -Upper respiratory infection Acute, or Chronic, or Acute on Chronic? @ -Acute Uncomplicated (without systemic symptoms) or Complicated (systemic symptoms)? @ -Default Side effects of treatment? @ -No Exacerbation, Progression, or Severe Exacerbation? @ -No Poses a threat to life or bodily function? How? (Chest pain, [place], [place], pneumonia, PE, COPD, DKA, ARF, appy, cholecystitis, CVA, Diverticulitis, Homicidal, Suicidal, threat to staff... and all critical care pts) @ -No Diagnosis/symptom? @ -Asthma exacerbation Acute, or Chronic, or Acute on Chronic? @ -Acute Uncomplicated (without systemic symptoms) or Complicated (systemic symptoms)? @ -Default Side effects of treatment? @ -None Exacerbation, Progression, or Severe Exacerbation] @ -No Poses a threat to life or bodily function? @ -No - Lab Data Result diagrams: 07/22/23 15:41 07/22/23 15:41 Lab Results 07/22/23 07/22/23 07/22/23 Range/Units 15:41 15:41 15:41 WBC 8.7 (3.8-10.6) k/uL RBC 5.17 (4.30-5.90) m/uL Hgb 15.0 (13.0-17.5) gm/dL Hct 46.5 (39.0-53.0) % MCV 90.0 (80.0-100.0) fL MCH 29.1 (25.0-35.0) pg MCHC 32.3 (31.0-37.0) g/dL RDW 13.9 (11.5-15.5) % Plt Count 211 (150-450) k/uL MPV 7.1 Neutrophils % 66 % Lymphocytes % 22 % Monocytes % 5 % Eosinophils % 5 % Basophils % 1 % Neutrophils # 5.7 (1.3-7.7) k/uL Lymphocytes # 1.9 (1.0-4.8) k/uL Monocytes # 0.4 (0-1.0) k/uL Eosinophils # 0.4 (0-0.7) k/uL Basophils # 0.1 (0-0.2) k/uL PT 9.7 L (10.0-12.5) sec INR 0.9 (<1.2) APTT 24.0 (22.0-30.0) sec Sodium 136 L (137-145) mmol/L Potassium 4.8 (3.5-5.1) mmol/L Chloride 103 (98-107) mmol/L Carbon Dioxide 28 (22-30) mmol/L Anion Gap 5 mmol/L BUN 23 H (9-20) mg/dL Creatinine 0.99 (0.66-1.25) mg/dL Est GFR (CKD-EPI)AfAm 89 (>60 ml/min/1.73 sqM) Est GFR (CKD-EPI)NonAf 77 (>60 ml/min/1.73 sqM) Glucose 194 H (74-99) mg/dL Calcium 8.8 (8.4-10.2) mg/dL Total Bilirubin 0.6 (0.2-1.3) mg/dL AST 33 (17-59) U/L ALT 38 (4-49) U/L Alkaline Phosphatase 75 (38-126) U/L Troponin I (0.000-0.034) ng/mL NT-Pro-B Natriuret Pep 191 pg/mL Total Protein 6.9 (6.3-8.2) g/dL Albumin 4.0 (3.5-5.0) g/dL Influenza Type A (PCR) (Not Detectd) Influenza Type B (PCR) (Not Detectd) RSV (PCR) (Not Detectd) SARS-CoV-2 (PCR) (Not Detectd) 07/22/23 07/22/23 Range/Units 15:41 15:41 WBC (3.8-10.6) k/uL RBC (4.30-5.90) m/uL Hgb (13.0-17.5) gm/dL Hct (39.0-53.0) % MCV (80.0-100.0) fL MCH (25.0-35.0) pg MCHC (31.0-37.0) g/dL RDW (11.5-15.5) % Plt Count (150-450) k/uL MPV Neutrophils % % Lymphocytes % % Monocytes % % Eosinophils % % Basophils % % Neutrophils # (1.3-7.7) k/uL Lymphocytes # (1.0-4.8) k/uL Monocytes # (0-1.0) k/uL Eosinophils # (0-0.7) k/uL Basophils # (0-0.2) k/uL PT (10.0-12.5) sec INR (<1.2) APTT (22.0-30.0) sec Sodium (137-145) mmol/L Potassium (3.5-5.1) mmol/L Chloride (98-107) mmol/L Carbon Dioxide (22-30) mmol/L Anion Gap mmol/L BUN (9-20) mg/dL Creatinine (0.66-1.25) mg/dL Est GFR (CKD-EPI)AfAm (>60 ml/min/1.73 sqM) Est GFR (CKD-EPI)NonAf (>60 ml/min/1.73 sqM) Glucose (74-99) mg/dL Calcium (8.4-10.2) mg/dL Total Bilirubin (0.2-1.3) mg/dL AST (17-59) U/L ALT (4-49) U/L Alkaline Phosphatase (38-126) U/L Troponin I <0.012 (0.000-0.034) ng/mL NT-Pro-B Natriuret Pep pg/mL Total Protein (6.3-8.2) g/dL Albumin (3.5-5.0) g/dL Influenza Type A (PCR) Not Detected (Not Detectd) Influenza Type B (PCR) Not Detected (Not Detectd) RSV (PCR) Not Detected (Not Detectd) SARS-CoV-2 (PCR) Not Detected (Not Detectd) - Radiology Data Chest x-ray: Status post aortic valve replacement. No acute process seen. Disposition Clinical Impression: Asthma exacerbation, Upper respiratory infection Disposition: HOME SELF-CARE Condition: Stable Instructions (If sedation given, give patient instructions): Asthma (ED), Upper Respiratory Infection (ED) Additional Instructions: Return to the ER immediately should you develop increased shortness of breath/trouble breathing, chest pain, a high fever, feeling dizzy or faint, or new or worsening symptoms. Follow-up closely with your primary care provider. Prescriptions: predniSONE [Deltasone] 20 mg PO BID #10 tab Is patient prescribed a controlled substance at d/c from ED?: No Referrals: Skyelr Marcano [Primary Care Provider] - 1-2 days Time of Disposition: 17:27
--- NOTE | 2023-07-22 15:32 | XR ---
EXAMINATION TYPE: XR chest 2V DATE OF EXAM: 07/22/2023 COMPARISON: 04/07/2021 HISTORY: 72 year-old male shortness of breath, difficulty breathing TECHNIQUE: PA and lateral views FINDINGS: Heart normal size. Aorta and pulmonary vasculature within normal limits. Some strandy atelectasis at the left base. Median sternotomy wires are prosthetic aortic valve. No consolidation or pleural effus ion. [facility] in the mid and lower thoracic spine. IMPRESSION: Status post aortic valve replacement. No acute process seen.
[2023-07-22 15:53] VITALS: RESP 18
[2023-07-22] MEDS: IPRATROPIUM-ALBUTEROL 3 ML NEB INHALATION STA (15:54)
[2023-07-22 15:55] LABS: Basophils # (A) 0.1 k/uL (0-0.2); Basophils % (A) 1 %; Eosinophils # (A) 0.4 k/uL (0-0.7); Eosinophils % (A) 5 %; HCT 46.5 % (39.0-53.0); Lymphocytes # (A) 1.9 k/uL (1.0-4.8); Lymphocytes % (A) 22 %; MCH 29.1 pg (25.0-35.0); MCHC 32.3 g/dL (31.0-37.0); Mean Platelet Volume 7.1; Monocytes # (A) 0.4 k/uL (0-1.0); Monocytes % (A) 5 %; Neutrophils # (A) 5.7 k/uL (1.3-7.7); Neutrophils % (A) 66 %; Platelet Count 211 k/uL (150-450); RBC 5.17 m/uL (4.30-5.90); RDW 13.9 % (11.5-15.5); WBC 8.7 k/uL (3.8-10.6)
[2023-07-22 16:09] LABS: INR 0.9 (<1.2); Prothrombin Time 9.7 sec (10.0-12.5)
[2023-07-22 16:14] LABS: ALT 38 U/L (4-49); AST 33 U/L (17-59); African American GFR (CKD) 89 (>60 ml/min/1.73 sqM); Alkaline Phosphatase 75 U/L (38-126); Anion Gap 5 mmol/L; Blood Urea Nitrogen 23 mg/dL (9-20); Calcium 8.8 mg/dL (8.4-10.2); Carbon Dioxide 28 mmol/L (22-30); Chloride 103 mmol/L (98-107); Glucose 194 mg/dL (74-99); Non-African American GFR(CKD) 77 (>60 ml/min/1.73 sqM); Potassium 4.8 mmol/L (3.5-5.1); Sodium 136 mmol/L (137-145); Total Bilirubin 0.6 mg/dL (0.2-1.3); Total Protein 6.9 g/dL (6.3-8.2)
[2023-07-22 16:23] LABS: NT-Pro-B-Type Natriuretic Pept 191 pg/mL
[2023-07-22 17:25] VITALS: BP 140/88; PULSE 75
[2023-07-22] MEDS: predniSONE 20 MG TAB PO STA (17:47)
== END 2023-07-22 17:53 | disposition home or self-care (01) ==
LOC: EC 14:28
DX: J45.901 Unspecified asthma with (acute) exacerbation (principal); J06.9 Acute upper respiratory infection, unspecified; E78.5 Hyperlipidemia, unspecified; I10 Essential (primary) hypertension; E03.9 Hypothyroidism, unspecified; E11.9 Type 2 diabetes mellitus without complications; Z79.4 Long term (current) use of insulin; Z79.890 Hormone replacement therapy; Z79.899 Other long term (current) drug therapy; Z88.6 Allergy status to analgesic agent; Z20.822 Contact with and (suspected) exposure to COVID-19
CPT/HCPCS: 36415; 94640; 83880; 80053; 84484; 85025; 85610; 85730; 87636; 71046; 99285; J7512

== ENCOUNTER → 2023-09-18 | Outpatient (CLI) | payer MEDICARE ==
[2023-09-18 17:19] LABS: ALT 20 U/L (10-49); AST 20 U/L (14-35); Chol/HDL Ratio 3.43 Ratio; LDL Cholesterol,Calculated 135.9 mg/dL (0.0-131.0)
== END | disposition home or self-care (01) ==
LOC: LABWHC1 07:51
PROVIDERS: ATTEND Internal Medicine Interventional Cardiology
DX: E78.2 Mixed hyperlipidemia (principal)
CPT/HCPCS: 36415; 80061; 84450; 84460

== ENCOUNTER 2024-03-21 11:05 | Observation (INO) | payer MEDICARE ==
[2024-03-21] MEDS: IPRATROPIUM-ALBUTEROL 3 ML NEB INHALATION STA (11:39)
--- NOTE | 2024-03-21 11:39 | ED ---
SOB HPI - General Chief Complaint: Shortness of Breath Stated Complaint: ESTUARDO Time Seen by Provider: 03/21/24 11:25 Source: patient, RN notes reviewed Mode of arrival: ambulatory Limitations: no limitations - History of Present Illness Initial Comments: 73-year-old male presents emergency department complaint of shortness of breath. Patient states has not felt well for the last several weeks. He states has been on multiple rounds of antibiotics for upper respiratory infection. Patient states that he continues to have symptoms and has noticed increasing wheezing and shortness of breath. Patient had a prior aortic valve replacement. Patient does have underlying asthma. Patient denies any chest pain, leg pain or leg swelling. No history of CHF. Patient reports no fever. - Related Data Home Medications Medication Instructions Recorded Confirmed Atorvastatin Calcium [Lipitor] 40 mg PO HS 12/16/13 03/25/21 Montelukast Sodium [Singulair] 10 mg PO HS 12/16/13 03/25/21 traZODone HCL [Desyrel] 100 mg PO HS PRN 09/26/14 03/25/21 Insulin Aspart (For Pump) [NovoLOG 0.01 unit SQ-PUMP CONTINUOUS 02/06/17 03/25/21 (For Pump)] Levothyroxine Sodium [Synthroid] 150 mcg PO DAILY 02/06/17 03/25/21 Ascorbic Acid [Vitamin C] 500 mg PO DAILY 11/24/20 03/25/21 Famotidine [Pepcid] 20 mg PO BID 11/24/20 03/25/21 HYDROcodone/APAP 5-325MG [[place] 1 tab PO QID PRN 11/24/20 03/25/21 5-325] Levalbuterol Tartrate 1 puff INHALATION RT-BID PRN 02/07/21 03/25/21 [Levalbuterol Tartrate 45 MCG Hfa] Cyclobenzaprine [Flexeril] 5 mg PO TID PRN 03/11/21 03/25/21 Previous Rx's Medication Instructions Recorded Fluticasone/Vilanterol [Breo 1 puff INHALATION RT-DAILY #0 02/10/21 Ellipta 100-25 Mcg Inhaler] Tamsulosin [Flomax] 0.4 mg PO DAILY #30 cap 04/06/21 Amiodarone [Cordarone] 200 mg PO BID #20 tab 04/07/21 Apixaban [Eliquis] 5 mg PO BID #60 tab 04/07/21 Clopidogrel [Plavix] 75 mg PO DAILY #30 tab 04/07/21 Furosemide [Lasix] 20 mg PO BID@0900,1600 #60 tab 04/07/21 Losartan [Cozaar] 50 mg PO DAILY #30 tab 04/07/21 Metoprolol Tartrate [Lopressor] 75 mg PO BID #180 tab 04/07/21 Sennosides-Docusate Sodium 2 each PO HS #14 tab 04/07/21 [Senokot-S] predniSONE [Deltasone] 20 mg PO BID #10 tab 07/22/23 Allergies Allergy/AdvReac Type Severity Reaction Status Date / Time aspirin AdvReac Unknown Rash/Hives Verified 03/21/24 11:21 Review of Systems ROS Statement: Those systems with pertinent positive or pertinent negative responses have been documented in the HPI. ROS Other: All systems not noted in ROS Statement are negative. Past Medical History Past Medical History: Asthma, Diabetes Mellitus, Hyperlipidemia, Hypertension, Skin Disorder, Thyroid Disorder Additional Past Medical History / Comment(s): Other HX: Moderate persistant asthma, IDDM type I- insulin pump and subcutaneous diabetic sensor, hypothyroidism, vitiligo for 17 years, seasonal allergic rhinitis, right foot drop secondary to pelvic fracture History of Any Multi-Drug Resistant Organisms: None Reported Past Surgical History: Orthopedic Surgery Additional Past Surgical History / Comment(s): reconstruction of pelvis (Feb 2011), bilateral hands tendon release in fingers (2002), Arthoscopic in right knee (1996), steel rodrigo in great toe of right foot (1997), bilateral arthroscopic elbow surgery, left elbow radial nerve release. Past Anesthesia/Blood Transfusion Reactions: Postoperative Nausea & Vomiting (PONV) Additional Past Anesthesia/Blood Transfusion Reaction / Comment(s): Only after the tendon release in fingers Past Psychological History: No Psychological Hx Reported Smoking Status: Never smoker Past Alcohol Use History: None Reported Past Drug Use History: None Reported - Past Family History Father Family Medical History: Myocardial Infarction ([place]) Additional Family Medical History / Comment(s): had in 1972 Mother Family Medical History: Asthma, Cancer, Thyroid Disorder Additional Family Medical History / Comment(s): lung cancer (diagnosed when she was 79) Brother(s) Family Medical History: CVA/TIA, Neurologic Disorder Additional Family Medical History / Comment(s): parkinson's disease, subdural hematoma. Brother is . Sister(s) Family Medical History: No Reported History Daughter(s) Family Medical History: No Reported History Son(s) Family Medical History: No Reported History General Exam Limitations: no limitations General appearance: alert, in no apparent distress Head exam: Present: atraumatic, normocephalic, normal inspection Eye exam: Present: normal appearance, PERRL, EOMI. Absent: scleral icterus, conjunctival injection, periorbital swelling ENT exam: Present: normal exam, normal oropharynx, mucous membranes moist Neck exam: Present: normal inspection, full ROM. Absent: tenderness, meningismus, lymphadenopathy Respiratory exam: Present: wheezes. Absent: respiratory distress, rales, rhonchi, stridor Cardiovascular Exam: Present: regular rate, normal rhythm, normal heart sounds. Absent: systolic murmur, diastolic murmur, rubs, gallop, clicks GI/Abdominal exam: Present: soft, normal bowel sounds. Absent: distended, tenderness, guarding, rebound, rigid Course Vital Signs 03/21/24 03/21/24 03/21/24 11:18 11:39 11:40 Temperature 98.4 F Pulse Rate 72 75 66 Respiratory 20 15 Rate Blood Pressure 145/89 137/90 O2 Sat by Pulse 97 94 L Oximetry 03/21/24 03/21/24 13:19 13:21 Temperature Pulse Rate 72 Respiratory 16 18 Rate Blood Pressure 131/91 O2 Sat by Pulse 99 Oximetry Medical Decision Making - Medical Decision Making Was pt. sent in by a medical professional or institution (, PA, [employer], urgent care, hospital, or jail...) When possible be specific @ -No Did you speak to anyone other than the patient for history (EMS, parent, family, police, friend...)? What history was obtained from this source @ -No Did you review nursing and triage notes (agree or disagree)? Why? @ -I reviewed and agree with nursing and triage notes Were old charts reviewed (outside hosp., previous admission, EMS record, old EKG, old radiological studies, urgent care reports/EKG's, jail records)? Report findings @ -No old charts were reviewed Differential Diagnosis (chest pain, altered mental status, abdominal pain women, abdominal pain men, vaginal bleeding, weakness, fever, dyspnea, syncope, headache, dizziness, GI bleed, back pain, seizure, CVA, palpatations, mental health, musculoskeletal)? @ -Differential Dyspnea: Coronary syndrome, arrhythmia, tamponade, asthma, COPD, pulmonary embolism, pneumonia, pneumothorax, pulmonary effusion, anaphylaxis, diabetic ketoacidosis, flailed chest, pulmonary contusion, diaphragmatic rupture, anemia, neuromuscular, this is not meant to be an all-inclusive list. EKG interpreted by me (3pts min.). @ -As above X-rays interpreted by me (1pt min.). @ -Chest x-ray shows no acute cardiopulmonary process. CT interpreted by me (1pt min.). @ -None done U/S interpreted by me (1pt. min.). @ -None done What testing was considered but not performed or refused? (CT, X-rays, U/S, labs)? Why? @ -None What meds were considered but not given or refused? Why? @ -None Did you discuss the management of the patient with other professionals (professionals i.e. , PA, [employer], lab, RT, psych nurse, social contact worker, punch hand, teacher, lodge officer, social work case manager)? Give summary @ -Dr. Ackerman for admission Was smoking cessation discussed for >3mins.? @ -No Was critical care preformed (if so, how long)? @ -No Were there social determinants of health that impacted care today? How? (Homel essness, low income, unemployed, alcoholism, drug addiction, transportation, low edu. Level, literacy, decrease access to med. care, custodial, rehab)? @ -No Was there de-escalation of care discussed even if they declined (Discuss DNR or withdrawal of care, Hospice)? DNR status @ -No What co-morbidities impacted this encounter? (DM, HTN, Smoking, COPD, CAD, Cancer, CVA, ARF, Chemo, Hep., AIDS, mental health diagnosis, sleep apnea, morbid obesity)? @ -Asthma, aortic valve replacement Was patient admitted / discharged? Hospital course, mention meds given and route, prescriptions, significant lab abnormalities, going to OR and other pertinent info. @ -Admitted patient is been having worsening dyspnea, worsening asthma exacerbation and has been on 2 rounds of antibiotics and steroids no significant improvement. Patient be admitted for continuation of treatments, steroids, pulmonary evaluation. Undiagnosed new problem with uncertain prognosis? @ -No Drug Therapy requiring intensive monitoring for toxicity (Heparin, Nitro, Insulin, Cardizem)? @ -No Were any procedures done? @ -No Diagnosis/symptom? @ -Acute asthma exacerbation, tracheobronchitis Acute, or Chronic, or Acute on Chronic? @ -Acute Uncomplicated (without systemic symptoms) or Complicated (systemic symptoms)? @ -Complicated Side effects of treatment? @ -No Exacerbation, Progression, or Severe Exacerbation? @ -Exacerbation Poses a threat to life or bodily function? How? (Chest pain, [place], [place], pneumonia, PE, COPD, DKA, ARF, appy, cholecystitis, CVA, Diverticulitis, Homicidal, Suicidal, threat to staff... and all critical care pts) @ -Yes respiratory failure caused by asthma - Lab Data Result diagrams: 03/21/24 11:51 03/21/24 11:51 Lab Results 03/21/24 03/21/24 03/21/24 Range/Units 11:51 11:51 11:51 WBC 12.1 H (3.8-10.6) k/uL RBC 5.22 (4.30-5.90) m/uL Hgb 14.6 (13.0-17.5) gm/dL Hct 46.3 (39.0-53.0) % MCV 88.7 (80.0-100.0) fL MCH 28.0 (25.0-35.0) pg MCHC 31.6 (31.0-37.0) g/dL RDW 13.7 (11.5-15.5) % Plt Count 328 (150-450) k/uL MPV 6.5 Neutrophils % 72 % Lymphocytes % 17 % Monocytes % 5 % Eosinophils % 5 % Basophils % 1 % Neutrophils # 8.7 H (1.3-7.7) k/uL Lymphocytes # 2.1 (1.0-4.8) k/uL Monocytes # 0.6 (0-1.0) k/uL Eosinophils # 0.6 (0-0.7) k/uL Basophils # 0.1 (0-0.2) k/uL PT 10.2 (10.0-12.5) sec INR 0.9 (<1.2) APTT 24.4 (22.0-30.0) sec Sodium 135 L (137-145) mmol/L Potassium 4.8 (3.5-5.1) mmol/L Chloride 105 (98-107) mmol/L Carbon Dioxide 24 (22-30) mmol/L Anion Gap 6 mmol/L BUN 13 (9-20) mg/dL Creatinine 0.91 (0.66-1.25) mg/dL Est GFR (CKD-EPI)AfAm >90 (>60 ml/min/1.73 sqM) Est GFR (CKD-EPI)NonAf 85 (>60 ml/min/1.73 sqM) Glucose 136 H (74-99) mg/dL Plasma Lactic Acid Jason (0.7-2.0) mmol/L Calcium 9.1 (8.4-10.2) mg/dL Magnesium 2.1 (1.6-2.3) mg/dL Total Bilirubin 0.7 (0.2-1.3) mg/dL AST 29 (17-59) U/L ALT 33 (4-49) U/L Alkaline Phosphatase 70 (38-126) U/L Troponin I (0.000-0.034) ng/mL NT-Pro-B Natriuret Pep 84 pg/mL Total Protein 6.8 (6.3-8.2) g/dL Albumin 4.0 (3.5-5.0) g/dL 03/21/24 03/21/24 Range/Units 11:51 11:51 WBC (3.8-10.6) k/uL RBC (4.30-5.90) m/uL Hgb (13.0-17.5) gm/dL Hct (39.0-53.0) % MCV (80.0-100.0) fL MCH (25.0-35.0) pg MCHC (31.0-37.0) g/dL RDW (11.5-15.5) % Plt Count (150-450) k/uL MPV Neutrophils % % Lymphocytes % % Monocytes % % Eosinophils % % Basophils % % Neutrophils # (1.3-7.7) k/uL Lymphocytes # (1.0-4.8) k/uL Monocytes # (0-1.0) k/uL Eosinophils # (0-0.7) k/uL Basophils # (0-0.2) k/uL PT (10.0-12.5) sec INR (<1.2) APTT (22.0-30.0) sec Sodium (137-145) mmol/L Potassium (3.5-5.1) mmol/L Chloride (98-107) mmol/L Carbon Dioxide (22-30) mmol/L Anion Gap mmol/L BUN (9-20) mg/dL Creatinine (0.66-1.25) mg/dL Est GFR (CKD-EPI)AfAm (>60 ml/min/1.73 sqM) Est GFR (CKD-EPI)NonAf (>60 ml/min/1.73 sqM) Glucose (74-99) mg/dL Plasma Lactic Acid Jason 1.5 (0.7-2.0) mmol/L Calcium (8.4-10.2) mg/dL Magnesium (1.6-2.3) mg/dL Total Bilirubin (0.2-1.3) mg/dL AST (17-59) U/L ALT (4-49) U/L Alkaline Phosphatase (38-126) U/L Troponin I <0.012 (0.000-0.034) ng/mL NT-Pro-B Natriuret Pep pg/mL Total Protein (6.3-8.2) g/dL Albumin (3.5-5.0) g/dL - EKG Data -: EKG Interpreted by [facility] EKG Comments: EKG performed at 11: 40 sinus rhythm rate of 65 NC 163 QRS 81 QT/QTc 377/388 Disposition Clinical Impression: Asthma exacerbation, Tracheobronchitis Disposition: ADMITTED IP TO THIS HOSP Referrals: Skyler Marcano [Primary Care Provider] - 1-2 days Time of Disposition: 13:50
[2024-03-21] MEDS: methylPREDNISolone SOD SUCCI 125 MG/2 ML VIAL IV STA (12:06)
[2024-03-21 12:10] LABS: Basophils # (A) 0.1 k/uL (0-0.2); Basophils % (A) 1 %; Eosinophils # (A) 0.6 k/uL (0-0.7); Eosinophils % (A) 5 %; HCT 46.3 % (39.0-53.0); HGB 14.6 gm/dL (13.0-17.5); Lymphocytes # (A) 2.1 k/uL (1.0-4.8); Lymphocytes % (A) 17 %; MCHC 31.6 g/dL (31.0-37.0); MCV 88.7 fL (80.0-100.0); Mean Platelet Volume 6.5; Monocytes # (A) 0.6 k/uL (0-1.0); Monocytes % (A) 5 %; Neutrophils # (A) 8.7 k/uL (1.3-7.7); Neutrophils % (A) 72 %; Platelet Count 328 k/uL (150-450); RBC 5.22 m/uL (4.30-5.90); RDW 13.7 % (11.5-15.5); WBC 12.1 k/uL (3.8-10.6)
--- NOTE | 2024-03-21 12:24 | XR ---
EXAMINATION TYPE: XR chest 2V DATE OF EXAM: 03/21/2024 COMPARISON: 07/22/2023 CLINICAL INDICATION: Male, 73 years old with history of difficulty breathing; , TECHNIQUE: XR chest 2V views of the chest. FINDINGS: The lungs are clear and there is no pneumothorax, pleural effusion, or focal pneumonia. Retrocardiac linear changes left lung base stable from prior exam likely in the basis of bronchiectasis or atelec tasis. Heart size normal and no overt failure. Osseous structures demonstrate hypertrophic and degen erative changes of the spine. AC joint. Generalized demineralization. Post cardiac valve surgery. Med josh sternotomy changes. IMPRESSION: 1. No acute process. [facility], , 03/21/2024 12:21 PM
[2024-03-21 12:31] LABS: INR 0.9 (<1.2); Partial Thromboplastin Time 24.4 sec (22.0-30.0); Prothrombin Time 10.2 sec (10.0-12.5)
[2024-03-21 12:51] LABS: ALT 33 U/L (4-49); AST 29 U/L (17-59); African American GFR (CKD) >90 (>60 ml/min/1.73 sqM); Alkaline Phosphatase 70 U/L (38-126); Anion Gap 6 mmol/L; Blood Urea Nitrogen 13 mg/dL (9-20); Calcium 9.1 mg/dL (8.4-10.2); Carbon Dioxide 24 mmol/L (22-30); Chloride 105 mmol/L (98-107); Glucose 136 mg/dL (74-99); Magnesium 2.1 mg/dL (1.6-2.3); Non-African American GFR(CKD) 85 (>60 ml/min/1.73 sqM); Potassium 4.8 mmol/L (3.5-5.1); Sodium 135 mmol/L (137-145); Total Bilirubin 0.7 mg/dL (0.2-1.3); Total Protein 6.8 g/dL (6.3-8.2)
[2024-03-21 12:53] LABS: NT-Pro-B-Type Natriuretic Pept 84 pg/mL
[2024-03-21] MEDS ORDERED: NALOXONE 0.4 MG/ML 1 ML VIAL IVP PRN (13:50)
[2024-03-21] MEDS ORDERED: IPRATROPIUM-ALBUTEROL 3 ML NEB INHALATION PRN (13:50)
[2024-03-21] MEDS: IPRATROPIUM-ALBUTEROL 3 ML NEB INHALATION SCH (15:12)
[2024-03-21] MEDS: methylPREDNISolone SOD SUCCI 125 MG/2 ML VIAL IV SCH (17:59)
[2024-03-21 20:09] LABS: Glucose,Whole Blood 169 mg/dL (70-110)
[2024-03-21] MEDS: DOXYCYCLINE 100 MG CAP PO SCH (21:02)
[2024-03-21] MEDS ORDERED: HYDROcodone/APAP 5-325MG 1 EACH TAB PO PRN (21:52)
[2024-03-21] MEDS ORDERED: FAMOTIDINE 20 MG TAB PO PRN (21:52)
[2024-03-21] MEDS ORDERED: SENNOSIDES-DOCUSATE SODIUM 1 EACH TAB PO PRN (21:52)
[2024-03-21] MEDS: METOPROLOL TARTRATE 25 MG TAB PO SCH (22:24)
[2024-03-21] MEDS: ATORVASTATIN 40 MG TAB PO SCH (22:24)
[2024-03-21] MEDS: MONTELUKAST 10 MG TAB PO SCH (22:24)
[2024-03-21] MEDS: ACETAMINOPHEN TAB 325 MG TAB PO PRN (23:54)
[2024-03-22 05:45] LABS: Glucose,Whole Blood 92 mg/dL (70-110)
[2024-03-22] MEDS: LEVOTHYROXINE 125 MCG TAB PO SCH (05:46)
[2024-03-22] MEDS: LOSARTAN 50 MG TAB PO SCH (09:20)
[2024-03-22] MEDS: ASPIRIN 81 MG PO SCH (09:20)
[2024-03-22 09:31] LABS: Calcium 9.1 mg/dL (8.7-10.3); Carbon Dioxide 21.4 mmol/L (21.6-31.8); Chloride 100 mmol/L (96-109); Glucose 89 mg/dL (70-110); Potassium 4.8 mmol/L (3.5-5.5); Sodium 135 mmol/L (135-145)
[2024-03-22 09:36] LABS: Basophils # (A) 0.02 X 10*3/uL (0.00-0.10); Basophils % (A) 0.1 %; Eosinophils # (A) 0 X 10*3/uL (0.04-0.35); Eosinophils % (A) 0 %; HCT 43.3 % (39.6-50.0); HGB 14.5 g/dL (13.0-17.0); Lymphocytes # (A) 0.87 X 10*3/uL (0.90-5.00); Lymphocytes % (A) 6.4 %; MCH 28.3 pg (27.0-32.0); MCHC 33.5 g/dL (32.0-37.0); MCV 84.6 FL (80.0-97.0); Mean Platelet Volume 9.6 FL (9.5-12.2); Monocytes # (A) 0.14 X 10*3/uL (0.20-1.00); NRBC Per 100 WBC 0 X 10*3/uL (0.00-0.01); Neutrophils % (A) 91.4 %; Platelet Count 371 X 10*3/uL (140-440); RBC 5.12 X 10*6/uL (4.40-5.60); RDW 14.1 % (11.5-14.5); WBC 13.58 X 10*3/uL (4.50-10.00)
[2024-03-22 12:11] LABS: Glucose,Whole Blood 294 mg/dL (70-110)
--- NOTE | 2024-03-22 15:18 | P.HPIM ---
History of Present Illness H&P Date: 03/21/24 Chief Complaint: Shortness of breath Patient is a 73-year-old male with with a past medical history of moderate persistent asthma, hypothyroidism, hypertension, hyperlipidemia, diabetes type 1 on insulin pump, seasonal allergies, vitiligo for 17 years and history of right foot drop, history of pelvic fracture presents to ER with complaints of worsening shortness of breath. Patient has been having symptoms for more than 2 weeks. She was on Z-Polo initially and also on amoxicillin and steroid tapering course., Which she completed about a week ago. Patient still having shortness of breath and cough and unable to sputum production. Presents to ER for further evaluation. No complaints of chest pain. Tightness in the chest mainly. No fever no chills. No nausea vomiting abdominal pain or diarrhea. Denied any dizziness or lightheadedness. Chest x-ray showed no acute process EKG showed sinus rhythm with low QRS voltage in the precordial leads. Laboratory showed WBC 12.1 hemoglobin 14.6 and platelets 328 sodium 135 potassium 4.8 chloride 105 bicarb is 24 BUN 13 and creatinine 0.91 and blood sugar is 136. Liver enzymes not elevated. proBNP 84 and troponin x 1 negative and procalcitonin level is 0.05 Review of Systems Constitutional: Patient denies any fever or chills . No generalized weakness or weight loss. Abdomen: Patient denied nausea vomiting and diarrhea and abdominal pain. Cardiovascular: Patient denies any chest pain or short of breath no palpitations. Respiratory: patient does have cough without sputum production and complains of shortness of breath Neurologic: Patient denied any numbness or tingling. no headache. Musculoskeletal: Patient denies any complaints of joint swelling or deformity. Skin: Negative Psychiatric: Negative Endocrine: No heat or cold intolerance. No recent weight gain. Genitourinary: No dysuria or hematuria. All other 14 point ROS negative except the above Past Medical History Past Medical History: Asthma, Diabetes Mellitus, Hyperlipidemia, Hypertension, Skin Disorder, Thyroid Disorder Additional Past Medical History / Comment(s): Other HX: Moderate persistant asthma, IDDM type I- insulin pump and subcutaneous diabetic sensor, hypothyroidism, vitiligo for 17 years, seasonal allergic rhinitis, right foot dr op secondary to pelvic fracture History of Any Multi-Drug Resistant Organisms: None Reported Past Surgical History: Orthopedic Surgery Additional Past Surgical History / Comment(s): reconstruction of pelvis (Feb 2011), bilateral hands tendon release in fingers (2002), Arthoscopic in right knee (1996), steel rodrigo in great toe of right foot (1997), bilateral arthroscopic elbow surgery, left elbow radial nerve release. Past Anesthesia/Blood Transfusion Reactions: Postoperative Nausea & Vomiting (PONV) Additional Past Anesthesia/Blood Transfusion Reaction / Comment(s): Only after the tendon release in fingers Past Psychological History: No Psychological Hx Reported Smoking Status: Never smoker Past Alcohol Use History: None Reported Past Drug Use History: None Reported - Past Family History Father Family Medical History: Myocardial Infarction ([place]) Additional Family Medical History / Comment(s): had in 1972 Mother Family Medical History: Asthma, Cancer, Thyroid Disorder Additional Family Medical History / Comment(s): lung cancer (diagnosed when she was 79) Brother(s) Family Medical History: CVA/TIA, Neurologic Disorder Additional Family Medical History / Comment(s): parkinson's disease, subdural hematoma. Brother is . Sister(s) Family Medical History: No Reported History Daughter(s) Family Medical History: No Reported History Son(s) Family Medical History: No Reported History Medications and Allergies Home Medications Medication Instructions Recorded Confirmed Type Atorvastatin Calcium [Lipitor] 40 mg PO HS 12/16/13 03/21/24 History Montelukast Sodium [Singulair] 10 mg PO HS 12/16/13 03/21/24 History traZODone HCL [Desyrel] 100 mg PO HS PRN 09/26/14 03/21/24 History Insulin Aspart (For Pump) [NovoLOG 0.01 unit SQ-PUMP CONTINUOUS 02/06/17 03/21/24 History (For Pump)] Ascorbic Acid [Vitamin C] 500 mg PO DAILY 11/24/20 03/21/24 History Famotidine [Pepcid] 20 mg PO BID PRN 11/24/20 03/21/24 History HYDROcodone/APAP 5-325MG [[place] 1 tab PO TID PRN 11/24/20 03/21/24 History 5-325] Fluticasone/Vilanterol [Breo 1 puff INHALATION RT-DAILY #0 02/10/21 03/21/24 Rx Ellipta 100-25 Mcg Inhaler] Losartan [Cozaar] 50 mg PO DAILY #30 tab 04/07/21 03/21/24 Rx Acetaminophen [Tylenol Arthritis] 1,300 mg PO Q8H PRN 03/21/24 03/21/24 History Albuterol Sulfate [Albuterol 1 - 2 puff PO RT-Q6H PRN 03/21/24 03/21/24 History Sulfate Hfa] Aspirin EC [Ecotrin Low Dose] 81 mg PO DAILY 03/21/24 03/21/24 History Glucagon [Gvoke Pfs 1-Pack Syringe] 1 mg SQ DIRECTED PRN 03/21/24 03/21/24 History Levothyroxine Sodium [Synthroid] 125 mcg PO DAILY 03/21/24 03/21/24 History Metoprolol Tartrate [Lopressor] 25 mg PO BID 03/21/24 03/21/24 History Sennosides-Docusate Sodium 1 tab PO DAILY PRN 03/21/24 03/21/24 History [Senokot-S] Allergies Allergy/AdvReac Type Severity Reaction Status Date / Time aspirin AdvReac Unknown Rash/Hives Verified 03/21/24 15:45 Physical Exam Vitals: Vital Signs Temp Pulse Resp BP Pulse Ox 03/21/24 13:21 18 03/21/24 13:19 72 16 131/91 99 03/21/24 11:40 66 15 137/90 94 L 03/21/24 11:39 75 03/21/24 11:18 98.4 F 72 20 145/89 97 Intake and Output 03/20/24 03/21/24 03/21/24 22:59 06:59 14:59 Other: Weight 90.265 kg PHYSICAL EXAMINATION: Patient is lying in the bed comfortably, no acute distress, awake alert and oriented.. HEENT: Normocephalic. Neck is supple. Pupils reactive. Nostrils clear. Oral cavity is moist. Neck reveals no JVD, carotid bruits, or thyromegaly. CHEST EXAMINATION: Trachea is central. Symmetrical expansion. Expiratory wheezing on right lower lung and diminished on the left.. nonlabored breathing CARDIAC: Normal S1, S2 with no gallops. No murmurs ABDOMEN: Soft. Bowel sounds normal. No organomegaly. No abdominal bruits. Extremities: reveal no edema. No clubbing or cyanosis Neurologically awake, alert, oriented x3 with well-coordinated movements. No focal deficits noted Skin: No rash or skin lesions. Psychiatric: Coperative. Nonsuicidal Musculoskeletal: No joint swelling or deformity. Normal range of motion. Results CBC & Chem 7: 03/22/24 05:52 03/22/24 05:52 Labs: Abnormal Lab Results - Last 24 Hours (Table) 03/21/24 03/21/24 Range/Units 11:51 11:51 WBC 12.1 H (3.8-10.6) k/uL Neutrophils # 8.7 H (1.3-7.7) k/uL Sodium 135 L (137-145) mmol/L Glucose 136 H (74-99) mg/dL Thrombosis Risk Factor Assmnt - DVT/VTE Prophylaxis DVT/VTE Prophylaxis: Pharmacologic Prophylaxis ordered Assessment and Plan Assessment: Acute asthma exacerbation failed outpatient treatment. Moderate persistent asthma Hypertension Hyperlipidemia Diabetes type 1 on insulin pump Hypothyroidism Seasonal allergic rhinitis Right foot drop with history of prior pelvic surgery DVT prophylaxis with heparin subcu Plan: Patient will be continued on Solu-Medrol 60 mg Q6 hourly along with DuoNebs 4 times daily and antibiotics in the form of doxycycline. Sputum cultures will be sent. Continue with home medications and pulmonary consult. Follow-up closely. Time with Patient: Greater than 30
--- NOTE | 2024-03-22 15:20 | P.PN ---
Subjective Progress Note Date: 03/22/24 Patient is a 73-year-old male with with a past medical history of moderate persistent asthma, hypothyroidism, hypertension, hyperlipidemia, diabetes type 1 on insulin pump, seasonal allergies, vitiligo for 17 years and history of right foot drop, history of pelvic fracture presents to ER with complaints of worsening shortness of breath. Patient has been having symptoms for more than 2 weeks. She was on Z-Polo initially and also on amoxicillin and steroid tapering course., Which she completed about a week ago. Patient still having shortness of breath and cough and unable to sputum production. Presents to ER for further evaluation. No complaints of chest pain. Tightness in the chest mainly. No fever no chills. No nausea vomiting abdominal pain or diarrhea. Denied any dizziness or lightheadedness. Chest x-ray showed no acute process EKG showed sinus rhythm with low QRS voltage in the precordial leads. Laboratory showed WBC 12.1 hemoglobin 14.6 and platelets 328 sodium 135 potassium 4.8 chloride 105 bicarb is 24 BUN 13 and creatinine 0.91 and blood sugar is 136. Liver enzymes not elevated. proBNP 84 and troponin x 1 negative and procalcitonin level is 0.05 03/22/2024 Patient is sitting in the chair. Awake alert and oriented x 3. Breathing status is slightly better. Still complains of chest tightness. No complaints of to urologist. Patient is on antibiotics of home with doxycycline. Continued on IV Solu-Medrol and DuoNebs and Pulmicort was added. Laboratory showed WBC 13.5 hemoglobin 14.5 and platelets 371 Sodium 135 potassium 4.8 chloride 100 bicarb is 21.4 BUN 18 and creatinine 1.0 Current medications reviewed. Objective - Vital Signs Vital signs: Vital Signs Temp 97.9 F 03/22/24 12:17 Pulse 88 03/22/24 12:33 Resp 17 03/22/24 12:17 BP 134/73 03/22/24 12:17 Pulse Ox 97 03/22/24 12:17 FiO2 Intake & Output 03/21/24 03/22/24 03/22/24 18:59 06:59 18:59 Intake Total 120 Balance 120 Weight 90.265 kg 90.265 kg Intake: Oral 120 Other: Voiding Method Toilet # Voids 2 - Exam PHYSICAL EXAMINATION: Patient is lying in the bed comfortably, no acute distress, awake alert and oriented.. HEENT: Normocephalic. Neck is supple. Pupils reactive. Nostrils clear. Oral cavity is moist. Neck reveals no JVD, carotid bruits, or thyromegaly. CHEST EXAMINATION: Trachea is central. Symmetrical expansion. Bilateral air entry improved. Right-sided wheezing and scattered rhonchi.. CARDIAC: Normal S1, S2 with no gallops. No murmurs ABDOMEN: Soft. Bowel sounds normal. No organomegaly. No abdominal bruits. Extremities: reveal no edema. No clubbing or cyanosis Neurologically awake, alert, oriented x3 with well-coordinated movements. No focal deficits noted Skin: No rash or skin lesions. Psychiatric: Coperative. Nonsuicidal Musculoskeletal: No joint swelling or deformity. Normal range of motion. - Labs CBC & Chem 7: 03/22/24 05:52 03/22/24 05:52 Labs: Abnormal Lab Results - Last 24 Hours (Table) 03/21/24 03/22/24 03/22/24 Range/Units 20:08 05:52 05:52 WBC 13.58 H (4.50-10.00) X 10*3/uL Immature Gran # 0.15 H (0.00-0.04) X 10*3/uL Neutrophils # 12.40 H (1.80-7.70) X 10*3/uL Lymphocytes # 0.87 L (0.90-5.00) X 10*3/uL Monocytes # 0.14 L (0.20-1.00) X 10*3/uL Eosinophils # 0 L (0.04-0.35) X 10*3/uL Carbon Dioxide 21.4 L (21.6-31.8) mmol/L Anion Gap 13.60 H (4.00-12.00) mmol/L POC Glucose (mg/dL) 169 H (70-110) mg/dL 03/22/24 Range/Units 12:08 WBC (4.50-10.00) X 10*3/uL Immature Gran # (0.00-0.04) X 10*3/uL Neutrophils # (1.80-7.70) X 10*3/uL Lymphocytes # (0.90-5.00) X 10*3/uL Monocytes # (0.20-1.00) X 10*3/uL Eosinophils # (0.04-0.35) X 10*3/uL Carbon Dioxide (21.6-31.8) mmol/L Anion Gap (4.00-12.00) mmol/L POC Glucose (mg/dL) 294 H (70-110) mg/dL Assessment and Plan Assessment: Acute asthma exacerbation failed outpatient treatment. Moderate persistent asthma Hypertension Hyperlipidemia Diabetes type 1 on insulin pump Hypothyroidism Seasonal allergic rhinitis Right foot drop with history of prior pelvic surgery DVT prophylaxis with heparin subcu Plan: Patient will be continued on Solu-Medrol 60 mg Q6 hourly along with DuoNebs 4 times daily and antibiotics in the form of doxycycline. Pulmicort inhalation twice daily was added. Sputum cultures were sent.. Continue with home medications and pulmonary consult. Follow-up closely. Time with Patient: Greater than 30
--- NOTE | 2024-03-22 16:13 | P.CNPUL ---
History of Present Illness Consult date: 03/22/24 Reason for consult: dyspnea History of present illness: This is a 73-year-old male patient has been followed up in our office regarding history of bronchial asthma. The patient states that his asthma has been under adequate control since the patient has been maintained on Breo Ellipta 1 puff a day and albuterol rescue inhaler on an as-needed basis. Approximately 10 days ago, the patient started having increased dyspnea and is followed symptoms of URI. The patient contacted his primary care physician and the patient was given initially a course of Zithromax and a short course of prednisone burst taper. This helped with his breathing and after the steroid tapered off, his symptoms recurred. Subsequently, he was given a course of Augmentin. Nevertheless, his condition progressed and the patient is coming in with increased dyspnea cough chest tightness and wheezing and asthma exacerbation. The patient has no significant sputum production. Chest x-ray is free of any acute pulmonary infiltrates. The patient has a procalcitonin level that is nonelevated. The level is at 0.05. proBNP level is normal. LFTs are normal. Electrolytes are normal. The white cell count is at 12.1 with a hemoglobin 14.6 and a platelet count of 328. The patient is currently on room air oxygen. His pulse ox is in the order of 96%. The patient is known to have type 1 diabetes mellitus and the patient is currently on a insulin pump. It was noted that his blood sugars are somewhat elevated and the patient is doing his own adjustments on his insulin pump for blood sugar control. He has hypertension hyperlipidemia and previous history of hypothyroidism. He has vitiligo. He has seasonal allergies. He has also undergone a aortic valve replacement, with a pig valve for an underlying bicuspid aortic valve and this surgery was done on in March 2021 without any complications. Review of Systems Constitutional: Reports fatigue Eyes: denies as per HPI, denies blurred vision, denies bulging eye, denies decreased vision, denies diplopia, denies discharge, denies dry eye, denies irritation, denies itching, denies pain, denies photophobia, denies loss of peripheral vision, denies loss of vision, denies tunnel vision/blind spots Ears: deny: decreased hearing, ear discharge, earache, tinnitus Ears, nose, mouth and throat: Reports as per HPI Breasts: absent: as per HPI, gynecomastia Respiratory: Reports as per HPI, Reports congestion, Reports cough, Reports dyspnea (Maximo is working), Reports wheezing Gastrointestinal: Reports as per HPI Genitourinary: Reports as per HPI Musculoskeletal: Reports as per HPI Musculoskeletal: absent: ankle pain, ankle stiffness, ankle swelling, as per HPI, elbow pain, elbow stiffness, elbow swelling, foot pain, foot stiffness, foot swelling, hand pain, hand stiffness, hand swelling, hip pain, hip stiffness, hip swelling, knee pain, knee stiffness, knee swelling, shoulder pain, shoulder stiffness, shoulder swelling, wrist pain, wrist stiffness, wrist swelling Integumentary: Reports as per HPI Neurological: Reports as per HPI Psychiatric: Reports as per HPI Endocrine: Reports as per HPI Hematologic/Lymphatic: Reports as per HPI Allergic/Immunologic: Reports as per HPI Past Medical History Past Medical History: Asthma, Diabetes Mellitus, Hyperlipidemia, Hypertension, Skin Disorder, Thyroid Disorder Additional Past Medical History / Comment(s): Other HX: Moderate persistant asthma, IDDM type I- insulin pump and subcutaneous diabetic sensor, hypothyroidism, vitiligo for 17 years, seasonal allergic rhinitis, right foot drop secondary to pelvic fracture, aortic valve replacement for aortic valve stenosis/bicuspid aortic valve back in 2020 History of Any Multi-Drug Resistant Organisms: None Reported Past Surgical History: Orthopedic Surgery Additional Past Surgical History / Comment(s): reconstruction of pelvis (Feb 2011), bilateral hands tendon release in fingers (2002), Arthoscopic in right knee (1996), steel rodrigo in great toe of right foot (1997), bilateral arthroscopic elbow surgery, left elbow radial nerve release. Past Anesthesia/Blood Transfusion Reactions: Postoperative Nausea & Vomiting (PONV) Additional Past Anesthesia/Blood Transfusion Reaction / Comment(s): Only after the tendon release in fingers Past Psychological History: No Psychological Hx Reported Smoking Status: Never smoker Past Alcohol Use History: None Reported Past Drug Use History: None Reported - Past Family History Father Family Medical History: Myocardial Infarction ([place]) Additional Family Medical History / Comment(s): had in 1972 Mother Family Medical History: Asthma, Cancer, Thyroid Disorder Additional Family Medical History / Comment(s): lung cancer (diagnosed when she was 79) Brother(s) Family Medical History: CVA/TIA, Neurologic Disorder Additional Family Medical History / Comment(s): parkinson's disease, subdural hematoma. Brother is . Sister(s) Family Medical History: No Reported History Daughter(s) Family Medical History: No Reported History Son(s) Family Medical History: No Reported History Medications and Allergies Home Medications Medication Instructions Recorded Confirmed Type Atorvastatin Calcium [Lipitor] 40 mg PO HS 12/16/13 03/21/24 History Montelukast Sodium [Singulair] 10 mg PO HS 12/16/13 03/21/24 History traZODone HCL [Desyrel] 100 mg PO HS PRN 09/26/14 03/21/24 History Insulin Aspart (For Pump) [NovoLOG 0.01 unit SQ-PUMP CONTINUOUS 02/06/17 03/21/24 History (For Pump)] Ascorbic Acid [Vitamin C] 500 mg PO DAILY 11/24/20 03/21/24 History Famotidine [Pepcid] 20 mg PO BID PRN 11/24/20 03/21/24 History HYDROcodone/APAP 5-325MG [[place] 1 tab PO TID PRN 11/24/20 03/21/24 History 5-325] Fluticasone/Vilanterol [Breo 1 puff INHALATION RT-DAILY #0 02/10/21 03/21/24 Rx Ellipta 100-25 Mcg Inhaler] Losartan [Cozaar] 50 mg PO DAILY #30 tab 04/07/21 03/21/24 Rx Acetaminophen [Tylenol Arthritis] 1,300 mg PO Q8H PRN 03/21/24 03/21/24 History Albuterol Sulfate [Albuterol 1 - 2 puff PO RT-Q6H PRN 03/21/24 03/21/24 History Sulfate Hfa] Aspirin EC [Ecotrin Low Dose] 81 mg PO DAILY 03/21/24 03/21/24 History Glucagon [Gvoke Pfs 1-Pack Syringe] 1 mg SQ DIRECTED PRN 03/21/24 03/21/24 History Levothyroxine Sodium [Synthroid] 125 mcg PO DAILY 03/21/24 03/21/24 History Metoprolol Tartrate [Lopressor] 25 mg PO BID 03/21/24 03/21/24 History Sennosides-Docusate Sodium 1 tab PO DAILY PRN 03/21/24 03/21/24 History [Senokot-S] Allergies Allergy/AdvReac Type Severity Reaction Status Date / Time aspirin AdvReac Unknown Rash/Hives Verified 03/21/24 15:45 Physical Exam Vitals: Vital Signs Temp Pulse Pulse Resp BP BP BP 03/22/24 12:33 88 03/22/24 12:20 83 03/22/24 12:17 97.9 F 87 17 134/73 03/22/24 09:12 88 03/22/24 09:02 03/22/24 09:01 77 18 03/22/24 09:00 85 03/22/24 08:00 18 03/22/24 07:31 98.3 F 73 18 152/69 03/22/24 06:36 97.8 F 77 18 138/81 03/22/24 02:00 98.0 F 99 17 146/78 03/21/24 19:56 110 H 03/21/24 19:46 97.9 F 112 H 16 152/84 03/21/24 19:43 104 H 03/21/24 18:03 98.5 F 109 H 20 142/76 03/21/24 15:43 98.2 F 98 20 146/76 03/21/24 15:25 75 03/21/24 15:14 74 03/21/24 13:21 18 03/21/24 13:19 72 16 131/91 Pulse Ox 03/22/24 12:33 03/22/24 12:20 03/22/24 12:17 97 03/22/24 09:12 03/22/24 09:02 95 03/22/24 09:01 03/22/24 09:00 03/22/24 08:00 03/22/24 07:31 95 03/22/24 06:36 94 L 03/22/24 02:00 94 L 03/21/24 19:56 03/21/24 19:46 93 L 03/21/24 19:43 03/21/24 18:03 96 03/21/24 15:43 94 L 03/21/24 15:25 03/21/24 15:14 03/21/24 13:21 03/21/24 13:19 99 Intake and Output 03/21/24 03/22/24 03/22/24 22:59 06:59 14:59 Other: Voiding Method Toilet # Voids 2 2 Weight 90.265 kg The patient appeared well nourished and normally developed. Vital signs as documented. Head exam is unremarkable. No scleral icterus or corneal arcus noted. Neck is without jugular venous distension, thyromegaly, or carotid bruits. Carotid upstrokes are brisk bilaterally. Lungs diminished breath sounds and diffuse expiratory wheezes throughout the lung escobedo bilaterally. Cardiac exam reveals the PMI to be normally sized and situated. Rhythm is regular. First and second heart sounds normal. No murmurs, rubs or gallops. The patient has thoracotomy scar related to previous aortic valve replacement. No significant murmurs appreciated on today's examination. Abdominal exam reveals normal bowel sounds, no masses, no organomegaly and no a ortic enlargement. Extremities are nonedematous and both femoral and pedal pulses are normal. Examination of the skin revealed no evidence of significant rashes, suspicious appearing nevi or other concerning lesions. Neurologically, the patient is awake and alert and the patient does not have any focal neurological deficit. Cranial nerves are essentially intact. Results - Laboratory Findings CBC and BMP: 03/22/24 05:52 03/22/24 05:52 PT/INR, D-dimer PT 10.2 sec (10.0-12.5) 03/21/24 11:51 INR 0.9 (<1.2) 03/21/24 11:51 Abnormal lab findings: Abnormal Labs 03/21/24 03/21/24 03/21/24 11:51 11:51 20:08 WBC 12.1 H Immature Gran # Neutrophils # 8.7 H Lymphocytes # Monocytes # Eosinophils # Sodium 135 L Carbon Dioxide Anion Gap Glucose 136 H POC Glucose (mg/dL) 169 H 03/22/24 03/22/24 03/22/24 05:52 05:52 12:08 WBC 13.58 H Immature Gran # 0.15 H Neutrophils # 12.40 H Lymphocytes # 0.87 L Monocytes # 0.14 L Eosinophils # 0 L Sodium Carbon Dioxide 21.4 L Anion Gap 13.60 H Glucose POC Glucose (mg/dL) 294 H Assessment and Plan Plan: Acute exacerbation of moderate persistent bronchial asthma, failed outpatient treatment. No evidence of pneumonia. Viral screen is negative. No evidence of any decompensated heart failure. No airspace disease or consolidation on today's chest x-ray and the patient has no significant hypoxemia. His presentation is typical of acute asthma exacerbation following a URI. Moderate persistent bronchial asthma maintained on Breo Ellipta on outpatient basis History of aortic valve replacement Hypothyroidism Diabetes mellitus type 1 and the patient has an insulin pump. He has a component of diabetic peripheral neuropathy Hyperglycemia related to systemic steroids Seasonal allergies Hypertension Hyper lipidemia Vitiligo Plan Agree on the current treatment. Continue bronchodilators Continue steroids Monitor blood sugar Insulin pump for blood sugar control Antibiotic coverage with doxycycline which is essentially empiric Anticipate improvement and will continue to follow. Home medications have been resumed.
[2024-03-22 17:14] LABS: Glucose,Whole Blood 211 mg/dL (70-110)
[2024-03-22] MEDS ORDERED: DEXTROSE 50% SYRINGE 50 ML IVP PRN ×2 (17:37)
[2024-03-22] MEDS ORDERED: INSULIN ASPART (NovoLOG) 100 UNIT/ML VIAL SQ PRN (18:01)
[2024-03-22 19:56] LABS: Glucose,Whole Blood 237 mg/dL (70-110)
[2024-03-22] MEDS: BUDESONIDE 0.5 MG/2 ML NEBU INHALATION SCH (20:30)
[2024-03-23] MEDS: traZODone HCL 100 MG TAB PO PRN (00:17)
[2024-03-23 02:50] LABS: Glucose,Whole Blood 133 mg/dL (70-110)
[2024-03-23 05:39] LABS: Glucose,Whole Blood 154 mg/dL (70-110)
[2024-03-23 10:21] LABS: HGB 13.5 g/dL (13.0-17.0); MCH 27.8 pg (27.0-32.0); MCHC 32.9 g/dL (32.0-37.0); MCV 84.5 FL (80.0-97.0); Mean Platelet Volume 9.6 FL (9.5-12.2); NRBC Per 100 WBC 0 X 10*3/uL (0.00-0.01); Platelet Count 346 X 10*3/uL (140-440); RBC 4.85 X 10*6/uL (4.40-5.60); RDW 14.6 % (11.5-14.5); WBC 22.41 X 10*3/uL (4.50-10.00)
[2024-03-23 10:48] LABS: ALT 29 U/L (10-49); AST 36 U/L (14-35); Albumin 3.9 g/dL (3.8-4.9); Alkaline Phosphatase 64 U/L (41-126); BUN/Creat Ratio 26.09 Ratio (12.00-20.00); Blood Urea Nitrogen 28.7 mg/dL (9.0-27.0); Calcium 8.7 mg/dL (8.7-10.3); Carbon Dioxide 20.7 mmol/L (21.6-31.8); Chloride 98 mmol/L (96-109); Globulin 2.3 g/dL (1.6-3.3); Glucose 189 mg/dL (70-110); Potassium 4.9 mmol/L (3.5-5.5); Sodium 131 mmol/L (135-145); Total Bilirubin 0.4 mg/dL (0.3-1.2); Total Protein 6.2 g/dL (6.2-8.2)
[2024-03-23 10:54] LABS: Basophils # (A) 0.02 X 10*3/uL (0.00-0.10); Basophils % (A) 0.1 %; Eosinophils # (A) 0 X 10*3/uL (0.04-0.35); Eosinophils % (A) 0 %; Lymphocytes # (A) 0.69 X 10*3/uL (0.90-5.00); Lymphocytes % (A) 3.1 %; Monocytes # (A) 0.37 X 10*3/uL (0.20-1.00); Monocytes % (A) 1.7 %; Neutrophils # (A) 21.14 X 10*3/uL (1.80-7.70); Neutrophils % (A) 94.3 %; RBC Morphology Normal (Normal)
[2024-03-23 11:55] LABS: Glucose,Whole Blood 141 mg/dL (70-110)
--- NOTE | 2024-03-23 15:10 | P.PN ---
Subjective Progress Note Date: 03/23/24 Interval History: Patient is a 73-year-old male with with a past medical history of moderate persistent asthma, hypothyroidism, hypertension, hyperlipidemia, diabetes type 1 on insulin pump, seasonal allergies, vitiligo for 17 years and history of right foot drop, history of pelvic fracture presents to ER with complaints of worsening shortness of breath. Patient has been having symptoms for more than 2 weeks. She was on Z-Polo initially and also on amoxicillin and steroid tapering course., Which she completed about a week ago. Patient still having shortness of breath and cough and unable to sputum production. Presents to ER for further evaluation. No complaints of chest pain. Tightness in the chest mainly. No fever no chills. No nausea vomiting abdominal pain or diarrhea. Denied any dizziness or lightheadedness. Chest x-ray showed no acute process EKG showed sinus rhythm with low QRS voltage in the precordial leads. Laboratory showed WBC 12.1 hemoglobin 14.6 and platelets 328 sodium 135 potassium 4.8 chloride 105 bicarb is 24 BUN 13 and creatinine 0.91 and blood sugar is 136. Liver enzymes not elevated. proBNP 84 and troponin x 1 negative and procalcitonin level is 0.05 03/22/2024 Patient is sitting in the chair. Awake alert and oriented x 3. Breathing status is slightly better. Still complains of chest tightness. No complaints of to urologist. Patient is on antibiotics of home with doxycycline. Continued on IV Solu-Medrol and DuoNebs and Pulmicort was added. Laboratory showed WBC 13.5 hemoglobin 14.5 and platelets 371 Sodium 135 potassium 4.8 chloride 100 bicarb is 21.4 BUN 18 and creatinine 1.0 03/23patient was seen and examined today. Patient reported feeling better today, chest tightness and shortness of breath is improving. Patient currently on breathing treatments, currently on IV Solu-Medrol 60 mg every 6 hours. Pulmonary is on board and following. Assessment and plan: Acute asthma exacerbation failed outpatient treatment. Moderate persistent asthma Hypertension Hyperlipidemia Diabetes type 1 on insulin pump Hypothyroidism Seasonal allergic rhinitis Right foot drop with history of prior pelvic surgery Plan: Continue breathing treatments with DuoNebs, Solu-Medrol 60 mg every 6 hours, on doxycycline Symbicort twice daily Sputum cultures Pulmonary on board and following On insulin pump for diabetes mellitus Continue home meds. Monitor vital signs and labs Labs and medication were reviewed. Continue same treatment. Further recommendations as per clinical course of the patient PHYSICAL EXAMINATION: GENERAL: The patient is A&O x3, NAD HEENT: EOMI, Sclerae anicteric, Moist Mucous membranes Neck: Supple, Non tender, No JVD PULMONARY: Decreased breath sound bilaterally, mild expiratory wheezes. CARDIOVASCULAR: S1, S2 present. No murmurs, rubs, or gallops. ABDOMEN: Soft, nontender, nondistended, normoactive bowel sounds. No guarding or rebound tenderness. MUSCULOSKELETAL: No edema, No cyanosis. No clubbing. Normal ROM. Intact peripheral pulses. EXTREMITIES: No cyanosis, clubbing, or pedal edema. NEUROLOGICAL: CN 2-12 grossly intact. No FND Skin: No Rash REVIEW OF SYSTEMS: CONSTITUTIONAL: No fever or chills. CARDIOVASCULAR: No chest pain, palpitations or syncope. PULMONARY: Cough, shortness of breath. GASTROINTESTINAL: No nausea, vomiting, diarrhea, abdominal pain. : No Dysuria, urgency, frequency. Extremities: No edema. NEUROLOGICAL: No headaches, no weakness, or numbness Dictation was produced using [employer] dictation software. please excuse any grammatical, word or spelling errors. Objective - Vital Signs Vital signs: Vital Signs Temp 97.7 F 03/23/24 14:47 Pulse 89 03/23/24 14:47 Resp 17 03/23/24 14:47 BP 148/70 03/23/24 14:47 Pulse Ox 97 03/23/24 14:47 FiO2 Intake & Output 03/22/24 03/23/24 03/23/24 18:59 06:59 18:59 Intake Total 120 1120 240 Balance 120 1120 240 Intake: Oral 120 1120 240 Other: Voiding Method Toilet Toilet # Voids 3 3 - Labs CBC & Chem 7: 03/23/24 06:41 03/23/24 06:41 Labs: Abnormal Lab Results - Last 24 Hours (Table) 03/22/24 03/22/24 03/23/24 Range/Units 17:13 19:54 02:48 WBC (4.50-10.00) X 10*3/uL RDW (11.5-14.5) % Immature Gran # (0.00-0.04) X 10*3/uL Neutrophils # (1.80-7.70) X 10*3/uL Lymphocytes # (0.90-5.00) X 10*3/uL Eosinophils # (0.04-0.35) X 10*3/uL Sodium (135-145) mmol/L Carbon Dioxide (21.6-31.8) mmol/L Anion Gap (4.00-12.00) mmol/L BUN (9.0-27.0) mg/dL BUN/Creatinine Ratio (12.00-20.00) Ratio Glucose (70-110) mg/dL POC Glucose (mg/dL) 211 H 237 H 133 H (70-110) mg/dL Hemoglobin A1c (<=6.0) % AST (14-35) U/L 03/23/24 03/23/24 03/23/24 Range/Units 05:38 06:41 06:41 WBC 22.41 H (4.50-10.00) X 10*3/uL RDW 14.6 H (11.5-14.5) % Immature Gran # 0.19 H (0.00-0.04) X 10*3/uL Neutrophils # 21.14 H (1.80-7.70) X 10*3/uL Lymphocytes # 0.69 L (0.90-5.00) X 10*3/uL Eosinophils # 0 L (0.04-0.35) X 10*3/uL Sodium (135-145) mmol/L Carbon Dioxide (21.6-31.8) mmol/L Anion Gap (4.00-12.00) mmol/L BUN (9.0-27.0) mg/dL BUN/Creatinine Ratio (12.00-20.00) Ratio Glucose (70-110) mg/dL POC Glucose (mg/dL) 154 H (70-110) mg/dL Hemoglobin A1c 7.9 H (<=6.0) % AST (14-35) U/L 03/23/24 03/23/24 Range/Units 06:41 11:53 WBC (4.50-10.00) X 10*3/uL RDW (11.5-14.5) % Immature Gran # (0.00-0.04) X 10*3/uL Neutrophils # (1.80-7.70) X 10*3/uL Lymphocytes # (0.90-5.00) X 10*3/uL Eosinophils # (0.04-0.35) X 10*3/uL Sodium 131 L (135-145) mmol/L Carbon Dioxide 20.7 L (21.6-31.8) mmol/L Anion Gap 12.30 H (4.00-12.00) mmol/L BUN 28.7 H (9.0-27.0) mg/dL BUN/Creatinine Ratio 26.09 H (12.00-20.00) Ratio Glucose 189 H (70-110) mg/dL POC Glucose (mg/dL) 141 H (70-110) mg/dL Hemoglobin A1c (<=6.0) % AST 36 H (14-35) U/L
--- NOTE | 2024-03-23 15:42 | P.PN ---
Subjective Progress Note Date: 03/23/24 On today's evaluation of 03/23/2024, the patient is feeling somewhat better. He reports improvement in his cough and congestion. He remains on IV Solu-Medrol. Will continue same treatment for another 24 hours on this patient. No other new complaints otherwise for now. The white cell count of 22 with a hemoglobin of 13.5. BUN is 28 with a creatinine of 1.1 and sodium levels at 131. Objective - Vital Signs Vital signs: Vital Signs Temp 97.7 F 03/23/24 14:47 Pulse 89 03/23/24 14:47 Resp 17 03/23/24 14:47 BP 148/70 03/23/24 14:47 Pulse Ox 97 03/23/24 14:47 FiO2 Intake & Output 03/22/24 03/23/24 03/23/24 18:59 06:59 18:59 Intake Total 120 1120 358 Balance 120 1120 358 Intake: Oral 120 1120 358 Other: Voiding Method Toilet Toilet # Voids 3 3 - Exam The patient appeared well nourished and normally developed. Vital signs as do cumented. Head exam is unremarkable. No scleral icterus or corneal arcus noted. Neck is without jugular venous distension, thyromegaly, or carotid bruits. Carotid upstrokes are brisk bilaterally. Lungs diminished breath sounds and diffuse expiratory wheezes throughout the lung escobedo bilaterally. Cardiac exam reveals the PMI to be normally sized and situated. Rhythm is regular. First and second heart sounds normal. No murmurs, rubs or gallops. The patient has thoracotomy scar related to previous aortic valve replacement. No significant murmurs appreciated on today's examination. Abdominal exam reveals normal bowel sounds, no masses, no organomegaly and no aortic enlargement. Extremities are nonedematous and both femoral and pedal pulses are normal. Examination of the skin revealed no evidence of significant rashes, suspicious appearing nevi or other concerning lesions. Neurologically, the patient is awake and alert and the patient does not have any focal neurological deficit. Cranial nerves are essentially intact. - Labs CBC & Chem 7: 03/23/24 06:41 03/23/24 06:41 Labs: Abnormal Lab Results - Last 24 Hours (Table) 03/22/24 03/22/24 03/23/24 Range/Units 17:13 19:54 02:48 WBC (4.50-10.00) X 10*3/uL RDW (11.5-14.5) % Immature Gran # (0.00-0.04) X 10*3/uL Neutrophils # (1.80-7.70) X 10*3/uL Lymphocytes # (0.90-5.00) X 10*3/uL Eosinophils # (0.04-0.35) X 10*3/uL Sodium (135-145) mmol/L Carbon Dioxide (21.6-31.8) mmol/L Anion Gap (4.00-12.00) mmol/L BUN (9.0-27.0) mg/dL BUN/Creatinine Ratio (12.00-20.00) Ratio Glucose (70-110) mg/dL POC Glucose (mg/dL) 211 H 237 H 133 H (70-110) mg/dL Hemoglobin A1c (<=6.0) % AST (14-35) U/L 03/23/24 03/23/24 03/23/24 Range/Units 05:38 06:41 06:41 WBC 22.41 H (4.50-10.00) X 10*3/uL RDW 14.6 H (11.5-14.5) % Immature Gran # 0.19 H (0.00-0.04) X 10*3/uL Neutrophils # 21.14 H (1.80-7.70) X 10*3/uL Lymphocytes # 0.69 L (0.90-5.00) X 10*3/uL Eosinophils # 0 L (0.04-0.35) X 10*3/uL Sodium (135-145) mmol/L Carbon Dioxide (21.6-31.8) mmol/L Anion Gap (4.00-12.00) mmol/L BUN (9.0-27.0) mg/dL BUN/Creatinine Ratio (12.00-20.00) Ratio Glucose (70-110) mg/dL POC Glucose (mg/dL) 154 H (70-110) mg/dL Hemoglobin A1c 7.9 H (<=6.0) % AST (14-35) U/L 03/23/24 03/23/24 Range/Units 06:41 11:53 WBC (4.50-10.00) X 10*3/uL RDW (11.5-14.5) % Immature Gran # (0.00-0.04) X 10*3/uL Neutrophils # (1.80-7.70) X 10*3/uL Lymphocytes # (0.90-5.00) X 10*3/uL Eosinophils # (0.04-0.35) X 10*3/uL Sodium 131 L (135-145) mmol/L Carbon Dioxide 20.7 L (21.6-31.8) mmol/L Anion Gap 12.30 H (4.00-12.00) mmol/L BUN 28.7 H (9.0-27.0) mg/dL BUN/Creatinine Ratio 26.09 H (12.00-20.00) Ratio Glucose 189 H (70-110) mg/dL POC Glucose (mg/dL) 141 H (70-110) mg/dL Hemoglobin A1c (<=6.0) % AST 36 H (14-35) U/L Assessment and Plan Plan: Acute exacerbation of moderate persistent bronchial asthma, failed outpatient treatment. No evidence of pneumonia. Viral screen is negative. No evidence of any decompensated heart failure. No airspace disease or consolidation on today's chest x-ray and the patient has no significant hypoxemia. His presentation is typical of acute asthma exacerbation following a URI. Moderate persistent bronchial asthma maintained on Breo Ellipta on outpatient basis History of aortic valve replacement Hypothyroidism Diabetes mellitus type 1 and the patient has an insulin pump. He has a compone nt of diabetic peripheral neuropathy Hyperglycemia related to systemic steroids Seasonal allergies Hypertension Hyper lipidemia Vitiligo Plan Clinically improving and will continue same treatment Monitor white cell count that this can be essentially steroid-induced Agree on the current treatment. Continue bronchodilators Continue steroids Monitor blood sugar Insulin pump for blood sugar control Antibiotic coverage with doxycycline which is essentially empiric Anticipate improvement and will continue to follow. Home medications have been resumed.
[2024-03-23 17:05] LABS: Glucose,Whole Blood 127 mg/dL (70-110)
[2024-03-23 19:57] LABS: Glucose,Whole Blood 294 mg/dL (70-110)
[2024-03-24 02:21] LABS: Glucose,Whole Blood 168 mg/dL (70-110)
[2024-03-24 05:56] LABS: Glucose,Whole Blood 146 mg/dL (70-110)
[2024-03-24 08:22] VITALS: BP 138/78; RESP 17; TEMP 98.3
--- NOTE | 2024-03-24 10:57 | P.PN ---
Subjective Progress Note Date: 03/24/24 On today's evaluation of 03/23/2024, the patient is feeling somewhat better. He reports improvement in his cough and congestion. He remains on IV Solu-Medrol. Will continue same treatment for another 24 hours on this patient. No other new complaints otherwise for now. The white cell count of 22 with a hemoglobin of 13.5. BUN is 28 with a creatinine of 1.1 and sodium levels at 131. 03/24/2024, the patient is feeling much better. Cough congestion wheezing essentially subsided and the patient remains on room air oxygen. Denies having any specific complaints. He is gradually getting back to his baseline. He is monitoring his blood sugar and he is using his insulin pump for blood sugar control. He remains on IV Solu-Medrol. Objective - Vital Signs Vital signs: Vital Signs Temp 98.3 F 03/24/24 06:50 Pulse 76 03/24/24 09:20 Resp 17 03/24/24 08:00 BP 138/78 03/24/24 06:50 Pulse Ox 96 03/24/24 06:50 FiO2 Intake & Output 03/23/24 03/24/24 03/24/24 18:59 06:59 18:59 Intake Total 358 560 240 Balance 358 560 240 Intake: Oral 358 560 240 Other: Voiding Method Toilet Toilet Toilet # Voids 3 3 - Exam The patient appeared well nourished and normally developed. Vital signs as documented. Head exam is unremarkable. No scleral icterus or corneal arcus noted. Neck is without jugular venous distension, thyromegaly, or carotid bruits. Carotid upstrokes are brisk bilaterally. Lungs diminished breath sounds and diffuse expiratory wheezes throughout the lung escobedo bilaterally. Cardiac exam reveals the PMI to be normally sized and situated. Rhythm is regular. First and second heart sounds normal. No murmurs, rubs or gallops. The patient has thoracotomy scar related to previous aortic valve replacement. No significant murmurs appreciated on today's examination. Abdominal exam reveals normal bowel sounds, no masses, no organomegaly and no aortic enlargement. Extremities are nonedematous and both femoral and pedal pulses are normal. Examination of the skin revealed no evidence of significant rashes, suspicious appearing nevi or other concerning lesions. Neurologically, the patient is awake and alert and the patient does not have any focal neurological deficit. Cranial nerves are essentially intact. - Labs CBC & Chem 7: 03/23/24 06:41 03/23/24 06:41 Labs: Abnormal Lab Results - Last 24 Hours (Table) 03/23/24 03/23/24 03/23/24 Range/Units 06:41 06:41 11:53 Immature Gran # 0.19 H (0.00-0.04) X 10*3/uL Neutrophils # 21.14 H (1.80-7.70) X 10*3/uL Lymphocytes # 0.69 L (0.90-5.00) X 10*3/uL Eosinophils # 0 L (0.04-0.35) X 10*3/uL Sodium 131 L (135-145) mmol/L Carbon Dioxide 20.7 L (21.6-31.8) mmol/L Anion Gap 12.30 H (4.00-12.00) mmol/L BUN 28.7 H (9.0-27.0) mg/dL BUN/Creatinine Ratio 26.09 H (12.00-20.00) Ratio Glucose 189 H (70-110) mg/dL POC Glucose (mg/dL) 141 H (70-110) mg/dL AST 36 H (14-35) U/L 03/23/24 03/23/24 03/24/24 Range/Units 17:02 19:56 02:20 Immature Gran # (0.00-0.04) X 10*3/uL Neutrophils # (1.80-7.70) X 10*3/uL Lymphocytes # (0.90-5.00) X 10*3/uL Eosinophils # (0.04-0.35) X 10*3/uL Sodium (135-145) mmol/L Carbon Dioxide (21.6-31.8) mmol/L Anion Gap (4.00-12.00) mmol/L BUN (9.0-27.0) mg/dL BUN/Creatinine Ratio (12.00-20.00) Ratio Glucose (70-110) mg/dL POC Glucose (mg/dL) 127 H 294 H 168 H (70-110) mg/dL AST (14-35) U/L 03/24/24 Range/Units 05:55 Immature Gran # (0.00-0.04) X 10*3/uL Neutrophils # (1.80-7.70) X 10*3/uL Lymphocytes # (0.90-5.00) X 10*3/uL Eosinophils # (0.04-0.35) X 10*3/uL Sodium (135-145) mmol/L Carbon Dioxide (21.6-31.8) mmol/L Anion Gap (4.00-12.00) mmol/L BUN (9.0-27.0) mg/dL BUN/Creatinine Ratio (12.00-20.00) Ratio Glucose (70-110) mg/dL POC Glucose (mg/dL) 146 H (70-110) mg/dL AST (14-35) U/L Assessment and Plan Plan: Acute exacerbation of moderate persistent bronchial asthma, failed outpatient treatment. No evidence of pneumonia. Viral screen is negative. No evidence of any decompensated heart failure. No airspace disease or consolidation on today's chest x-ray and the patient has no significant hypoxemia. His presentation is typical of acute asthma exacerbation following a URI. Moderate persistent bronchial asthma maintained on Breo Ellipta on outpatient basis History of aortic valve replacement Hypothyroidism Diabetes mellitus type 1 and the patient has an insulin pump. He has a component of diabetic peripheral neuropathy Hyperglycemia related to systemic steroids Seasonal allergies Hypertension Hyper lipidemia Vitiligo Plan Clinically improving a Monitor white cell count that this can be essentially steroid-induced Agree on the current treatment. Continue bronchodilators Discontinued IV Solu-Medrol and the patient can be discharged home on a prednisone burst taper, will start with 40 mg and to be tapered by 10 mg every 4 days. Monitor blood sugar Insulin pump for blood sugar control Will follow-up this patient on outpatient basis.
[2024-03-24 11:47] VITALS: PULSE 80
[2024-03-24 12:05] LABS: Glucose,Whole Blood 205 mg/dL (70-110)
--- NOTE | 2024-03-24 12:44 | P.DS ---
Providers Date of admission: 03/21/24 14:29 Expected date of discharge: 03/24/24 Attending physician: Damir Ackerman Consults: 03/21/24 13:50 Consult Physician Routine Consulting Provider: Catrachito Costa Consult Reason/Comments: asthma Do you want consulting provider notified?: Yes Primary care physician: Skyler James Bradley Hospital Course: Discharge diagnoses: Acute asthma exacerbation failed outpatient treatment. Moderate persistent asthma Hypertension Hyperlipidemia Diabetes type 1 on insulin pump Hypothyroidism Seasonal allergic rhinitis Right foot drop with history of prior pelvic surgery Plan: Treated with breathing treatments with DuoNebs, received doxycycline peripherally, received Solu-Medrol during hospitalization, Symbicort. Pulmonary consulted during hospitalization. Continued on home inhalers, continued on steroid taper at discharge. Home medications resumed at discharge. Patient on insulin pump for diabetes mellitus. Hospital course: Patient is a 73-year-old male with with a past medical history of moderate persistent asthma, hypothyroidism, hypertension, hyperlipidemia, diabetes type 1 on insulin pump, seasonal allergies, vitiligo for 17 years and history of right foot drop, history of pelvic fracture presents to ER with complaints of worsening shortness of breath. Patient has been having symptoms for more than 2 weeks. She was on Z-Polo initially and also on amoxicillin and steroid tapering course., Which she completed about a week ago. Patient still having shortness of breath and cough and unable to sputum production. Presents to ER for further evaluation. No complaints of chest pain. Tightness in the chest mainly. No fever no chills. No nausea vomiting abdominal pain or diarrhea. Denied any dizziness or lightheadedness. Chest x-ray showed no acute process EKG showed sinus rhythm with low QRS voltage in the precordial leads. Laboratory showed WBC 12.1 hemoglobin 14.6 and platelets 328 sodium 135 potassium 4.8 chloride 105 bicarb is 24 BUN 13 and creatinine 0.91 and blood sugar is 136. Liver enzymes not elevated. proBNP 84 and troponin x 1 negative and procalcitonin level is 0.05 03/22/2024 Patient is sitting in the chair. Awake alert and oriented x 3. Breathing status is slightly better. Still complains of chest tightness. No complaints of to urologist. Patient is on antibiotics of home with doxycycline. Continued on IV Solu-Medrol and DuoNebs and Pulmicort was added. Laboratory showed WBC 13.5 hemoglobin 14.5 and platelets 371 Sodium 135 potassium 4.8 chloride 100 bicarb is 21.4 BUN 18 and creatinine 1.0 03/23patient was seen and examined today. Patient reported feeling better today, chest tightness and shortness of breath is improving. Patient currently on breathing treatments, currently on IV Solu-Medrol 60 mg every 6 hours. Pulmonary is on board and following. 03/24--patient was seen and examined today. Patient feeling better today. Shortness of breath and wheezing has improved. Pulmonary following, okay to discharge per pulmonary, recommended steroid taper on discharge. Patient's condition vital stable at discharge. Follow-up with PCP in 1 week. Follow-up with pulmonary as outpatient. PHYSICAL EXAMINATION: GENERAL: The patient is A&O x3, NAD HEENT: EOMI, Sclerae anicteric, Moist Mucous membranes Neck: Supple, Non tender, No JVD PULMONARY: Equal breath souds B/L, No wheezing, No crackles. CARDIOVASCULAR: S1, S2 present. No murmurs, rubs, or gallops. ABDOMEN: Soft, nontender, nondistended, normoactive bowel sounds. No guarding or rebound tenderness. MUSCULOSKELETAL: No edema, No cyanosis. No clubbing. Normal ROM. Intact peripheral pulses. EXTREMITIES: No cyanosis, clubbing, or pedal edema. NEUROLOGICAL: CN 2-12 grossly intact. No FND SKIN: No rashes. Dictation was produced using [employer] dictation software. please excuse any grammatical, word or spelling errors. Patient Condition at Discharge: Fair Plan - Discharge Summary Discharge Rx Participant: No New Discharge Prescriptions: New predniSONE See Rx Instructions .ROUTE .COMPLEX #40 tab Continue Montelukast Sodium [Singulair] 10 mg PO HS Atorvastatin Calcium [Lipitor] 40 mg PO HS traZODone HCL [Desyrel] 100 mg PO HS PRN PRN Reason: SLEEP Insulin Aspart (For Pump) [NovoLOG (For Pump)] 0.01 unit SQ-PUMP CONTINUOUS Ascorbic Acid [Vitamin C] 500 mg PO DAILY Famotidine [Pepcid] 20 mg PO BID PRN PRN Reason: Gi Upset Glucagon [Gvoke Pfs 1-Pack Syringe] 1 mg SQ DIRECTED PRN PRN Reason: Hypoglycemia Aspirin EC [Ecotrin Low Dose] 81 mg PO DAILY Acetaminophen [Tylenol Arthritis] 1,300 mg PO Q8H PRN PRN Reason: Fever And/ Or Pain Albuterol Sulfate [Albuterol Sulfate Hfa] 1 - 2 puff PO RT-Q6H PRN PRN Reason: Shortness Of Breath Sennosides-Docusate Sodium [Senokot-S] 1 tab PO DAILY PRN PRN Reason: Constipation HYDROcodone/APAP 5-325MG [Strawberry 5-325] 1 tab PO TID PRN PRN Reason: Pain Fluticasone/Vilanterol [Breo Ellipta 100-25 Mcg Inhaler] 1 puff INHALATION RT-DAILY #0 Losartan [Cozaar] 50 mg PO DAILY #30 tab Metoprolol Tartrate [Lopressor] 25 mg PO BID Levothyroxine Sodium [Synthroid] 125 mcg PO DAILY Discharge Medication List Atorvastatin Calcium [Lipitor] 40 mg PO HS 12/16/13 [History] Montelukast Sodium [Singulair] 10 mg PO HS 12/16/13 [History] traZODone HCL [Desyrel] 100 mg PO HS PRN 09/26/14 [History] Insulin Aspart (For Pump) [NovoLOG (For Pump)] 0.01 unit SQ-PUMP CONTINUOUS 02/06/17 [History] Ascorbic Acid [Vitamin C] 500 mg PO DAILY 11/24/20 [History] Famotidine [Pepcid] 20 mg PO BID PRN 11/24/20 [History] HYDROcodone/APAP 5-325MG [Strawberry 5-325] 1 tab PO TID PRN 11/24/20 [History] Fluticasone/Vilanterol [Breo Ellipta 100-25 Mcg Inhaler] 1 puff INHALATION RT- DAILY #0 02/10/21 [Rx] Losartan [Cozaar] 50 mg PO DAILY #30 tab 04/07/21 [Rx] Acetaminophen [Tylenol Arthritis] 1,300 mg PO Q8H PRN 03/21/24 [History] Albuterol Sulfate [Albuterol Sulfate Hfa] 1 - 2 puff PO RT-Q6H PRN 03/21/24 [History] Aspirin EC [Ecotrin Low Dose] 81 mg PO DAILY 03/21/24 [History] Glucagon [Gvoke Pfs 1-Pack Syringe] 1 mg SQ DIRECTED PRN 03/21/24 [History] Levothyroxine Sodium [Synthroid] 125 mcg PO DAILY 03/21/24 [History] Metoprolol Tartrate [Lopressor] 25 mg PO BID 03/21/24 [History] Sennosides-Docusate Sodium [Senokot-S] 1 tab PO DAILY PRN 03/21/24 [History] predniSONE See Rx Instructions .ROUTE .COMPLEX #40 tab 03/24/24 [Rx] Follow up Appointment(s)/Referral(s): Skyler Marcano [Primary Care Provider] - 1-2 days Catrachito Costa MD [STAFF PHYSICIAN] - 2 Weeks Discharge Disposition: HOME SELF-CARE
[2024-03-24] MEDS: predniSONE 20 MG TAB PO SCH (13:16)
== END 2024-03-24 14:08 | disposition home or self-care (01) ==
LOC: EC 11:05 → 6NMEDSUR 14:29
PROVIDERS: ADMIT Internal Medicine; ATTEND Internal Medicine
DX: J45.41 Moderate persistent asthma with (acute) exacerbation (principal); J40 Bronchitis, not specified as acute or chronic; E10.65 Type 1 diabetes mellitus with hyperglycemia; E10.42 Type 1 diabetes mellitus with diabetic polyneuropathy; E03.9 Hypothyroidism, unspecified; E78.5 Hyperlipidemia, unspecified; L80 Vitiligo; I10 Essential (primary) hypertension; M21.371 Foot drop, right foot; S32.9XXS Fracture of unspecified parts of lumbosacral spine and pelvis, sequela; Z79.4 Long term (current) use of insulin; Z79.01 Long term (current) use of anticoagulants; Z79.82 Long term (current) use of aspirin; Z79.02 Long term (current) use of antithrombotics/antiplatelets; Z79.51 Long term (current) use of inhaled steroids; Z79.890 Hormone replacement therapy; Z79.899 Other long term (current) drug therapy; Z88.6 Allergy status to analgesic agent; Z95.2 Presence of prosthetic heart valve; Z96.41 Presence of insulin pump (external) (internal); Z82.5 Family history of asthma and other chronic lower respiratory diseases
CPT/HCPCS: 96376 ×5; 96365; 96375; 99285; 36415; 94640 ×7; 94760; 93005; 83880; 80053 ×2; 80048; 83605; 83735; 84484; 85025 ×3; 85610; 85730; 83036; 84145; 71046; G0378 ×4; J0696; J7512; J2919 ×4

== ENCOUNTER → 2024-05-14 | Outpatient (CLI) | payer MEDICARE ==
[2024-05-14 10:25] LABS: Microalbumin Creatinine Ratio <11 mg/g Cr (0-30)
[2024-05-14 11:35] LABS: LDL Cholesterol,Calculated 78.2 mg/dL (0.0-131.0); T4, Free (Free Thyroxine) 1.86 ng/dL (0.80-1.80); VLDL Calculation 16.56 mg/dL (5.00-40.00)
[2024-05-14 11:42] LABS: ALT 23 U/L (10-49); AST 15 U/L (14-35); Albumin 3.9 g/dL (3.8-4.9); Alkaline Phosphatase 71 U/L (41-126); BUN/Creat Ratio 21.36 Ratio (12.00-20.00); Blood Urea Nitrogen 23.5 mg/dL (9.0-27.0); Calcium 9.1 mg/dL (8.7-10.3); Carbon Dioxide 24.2 mmol/L (21.6-31.8); Chloride 102 mmol/L (96-109); Globulin 2.3 g/dL (1.6-3.3); Glucose 118 mg/dL (70-110); Potassium 4.5 mmol/L (3.5-5.5); Sodium 138 mmol/L (135-145); Total Bilirubin 0.6 mg/dL (0.3-1.2); Total Protein 6.2 g/dL (6.2-8.2)
== END | disposition home or self-care (01) ==
LOC: LABWHC1 07:08
PROVIDERS: ATTEND Internal Medicine Interventional Cardiology
DX: E03.9 Hypothyroidism, unspecified (principal); E78.2 Mixed hyperlipidemia; E10.65 Type 1 diabetes mellitus with hyperglycemia
CPT/HCPCS: 36415; 80053; 80061; 82043; 82570; 83036; 84439; 84443

== ENCOUNTER → 2024-10-19 | Outpatient (CLI) | payer MEDICARE ==
[2024-10-19 13:04] LABS: ALT 33 U/L (10-49); AST 30 U/L (14-35); Chol/HDL Ratio 2.64 Ratio; LDL Cholesterol,Calculated 83.1 mg/dL (0.0-131.0); T4, Free (Free Thyroxine) 1.58 ng/dL (0.80-1.80)
== END | disposition home or self-care (01) ==
LOC: LABWHC1 08:15
PROVIDERS: ATTEND Internal Medicine
DX: E78.2 Mixed hyperlipidemia (principal); E03.9 Hypothyroidism, unspecified; E10.65 Type 1 diabetes mellitus with hyperglycemia
CPT/HCPCS: 36415; 80061; 83036; 84439; 84443; 84450; 84460